=== PATIENT | female | born 1945 | race Caucasian/White ===

== ENCOUNTER → 2017-10-14 09:12 | Outpatient (CLI) | payer MEDICARE, OTHER, SELFPAY ==
--- NOTE | 2017-10-14 09:17 | XR_ITS ---
XR chest 2V HISTORY: ITS.REASON: HTN ORDERING PHYSICIAN: Haroldo Key MD PATIENT AGE: 72 years COMPARISON: None FINDINGS: Cardiac size is upper limits of normal. Lungs are clear of acute infiltrate. No evidence of CHF. Moderate degenerative changes are present in the thoracic spine. There has been prior left shoulder replacement. IMPRESSION: Borderline cardiomegaly, no acute finding
== END ==
PROVIDERS: PCP Family Medicine; Visit Provider Family Medicine
DX: Z01.818 Encounter for other preprocedural examination (principal)
CPT/HCPCS: 71046; 93005

== ENCOUNTER → 2017-12-07 12:50 | Outpatient (CLI) | payer MEDICARE, OTHER, SELFPAY ==
--- NOTE | 2017-12-07 | AS_ITS ---
Arterial Exam Indications: Claudication 443.9. PVD 433.9. IMPRESSIONS 1. Study suggests greater than 60% stenosis involving the right common femoral artery and the right deep femoral artery 2. Trickle flow seen from distal popliteal down to the distal CATERING ATTENDANT and PeroA in the right lower extremity. Very diminished flow and pulses seen in RLE. 3. Study suggests greater than 60% stenosis involving the left common femoral artery and the left femoral artery. Consider CT angiogram for conformation. History: Bilateral lower extremity pain. Claudication. Risk factors: Current tobacco use. Diabetes mellitus. Coronary artery disease. Patient has history of endarterectomy. Recent total knee on LLE 10/31/17. Patient presents today with black fifth toe on right foot. After completion of scanning with patient supine, the fifth, fourth, third, and second digits on the right foot were black in color and cold to touch. Bilateral lower extremity arterial duplex. Duplex scan and ankle-brachial indices. Height: Height: 152.4cm. Height: 60in. Weight: Weight: 78kg. Weight: 171.6lb. Body mass index: BMI: 33.6kg/m^2. Body surface area: BSA: 1.85m^2. Location: Vascular laboratory. Patient status: Outpatient. Tables: Arterial flow: + +--------+--------+ + Location V sys V ed Flow analysis + +--------+--------+ + Right common femoral 168cm/s -------- Biphasic + +--------+--------+ + Right deep femoral - proximal 176cm/s -------- Triphasic + +--------+--------+ + Right femoral - proximal 80.5cm/s -------- Biphasic + +--------+--------+ + Right femoral - mid 66.3cm/s -------- Monophasic + +--------+--------+ + Right femoral - distal 51.6cm/s -------- Monophasic + +--------+--------+ + Right popliteal - proximal 13.2cm/s 6cm/s Monophasic + +--------+--------+ + Right popliteal - distal 43.4cm/s 12.9cm/s Monophasic + +--------+--------+ + Right posterior tibial - mid 14.8cm/s 7.5cm/s Monophasic + +--------+--------+ + Right posterior tibial - distal 16.7cm/s 5.7cm/s Monophasic + +--------+--------+ + Right peroneal - distal 17.7cm/s 8.1cm/s Monophasic + +--------+--------+ + Left common femoral 184cm/s 26.4cm/s Monophasic + +--------+--------+ + Left deep femoral - proximal 208cm/s 25.3cm/s Monophasic + +--------+--------+ + Left femoral - proximal 189cm/s 33.9cm/s Monophasic + +--------+--------+ + Left femoral - mid 154cm/s 28.1cm/s Monophasic + +--------+--------+ + Left femoral - distal 330cm/s 61.1cm/s Monophasic + +--------+--------+ + Left popliteal - proximal 116cm/s 15.7cm/s Monophasic + +--------+--------
--- NOTE | 2017-12-07 12:56 | US_ITS ---
US Arterial Ankle Brachial Ind History: Claudication, coldness and lower extremities, current smoker with skin color changes, peripheral arterial disease ORDERING PHYSICIAN: Haroldo Key MD PATIENT AGE: 72 years TECHNIQUE: Segmental pressures obtained of both right and left leg. These are compared to brachial blood pressure to yield index at each level sampled including summary KARUNA. The data sheets from the procedure are available in PACS FINDINGS Rest study only performed today No prior studies available for comparison. Blood pressures reported are in millimeters mercury. There were diminished waveforms on the right. The pulses weren't able to be located by Doppler in the right leg therefore ABIs on the right were not formed. Diminished pulses are present in the left leg. LEFT LEG KARUNA = .7 LEFT LEG TBI= .4 Brachial BPD: 100 Thigh BP: 112 Calf BP: 93 Ankle PT:94 Ankle DP: 89 Digit = 57 IMPRESSION: 1. Unable to locate pulses on the right. 2. Low left KARUNA of 0.7 with diminished pulses indicating moderate arterial disease. The TBI is also depressed on the left indicating small vessel disease
== END ==
PROVIDERS: PCP Family Medicine; Visit Provider Family Medicine
DX: R09.89 Other specified symptoms and signs involving the circulatory and respiratory systems; I70.213 Atherosclerosis of native arteries of extremities with intermittent claudication, bilateral legs
CPT/HCPCS: 93922; 93925

== ENCOUNTER → 2017-12-15 10:08 | Outpatient (CLI) | payer MEDICARE, OTHER, SELFPAY ==
--- NOTE | 2017-12-15 10:13 | XR_ITS ---
XR foot wt bearing RT 3V HISTORY: Redness and pain, infection ITS.REASON: infection ORDERING PHYSICIAN: Brooklyn Nuñez DPM PATIENT AGE: 72 years COMPARISON: None FINDINGS: Hypertrophic changes are present at the first metatarsophalangeal joint with minimal hallux valgus and mild soft tissue swelling at the medial aspect of the distal first metatarsal. No bony destructive process. There are osteoarthritic changes of the navicular cuneiform and second and third metatarsal parcel junction. IMPRESSION: Osteoarthritic change. Bunion formation at the first metatarsal head No bony destructive process evident
[2017-12-15 11:11] LABS: Basophils % 0.2 % (0.1-2.0); Eosinophils # 0.5 K/mm3 (0.0-0.4); Eosinophils % 4.9 % (0.1-12.0); Hematocrit 32.5 % (37.0-47.0); Hemoglobin 10.3 g/dL (12.2-16.2); Lymphocytes # 1.8 K/mm3 (0.7-4.5); Lymphocytes % 18.9 K/mm3 (10-50); Mean Corpuscular HGB Conc 31.7 g/dL (31.8-35.4); Mean Corpuscular Hemoglobin 28.5 pg (27.0-31.2); Mean Platelet Volume 7.5 fl (7.4-10.4); Monocytes # 0.3 K/mm3 (0.1-1.0); Monocytes % 3.2 % (1.7-9.3); Neutrophils # 6.8 K/mm3 (1.8-7.8); Neutrophils % 72.7 % (37.0-80.0); Platelet Count 246 K/mm3 (142-424); Red Blood Count 3.62 M/mm3 (4.20-5.40); Red Cell Distribution Width 14.7 % (11.5-17.5); White Blood Count 9.4 K/mm3 (4.8-10.8)
[2017-12-15 11:35] LABS: Alanine Aminotransferase 16 U/L (12-78); Albumin Level 3.6 gm/dL (3.4-5.0); Albumin/Globulin Ratio 0.9 (1.1-1.8); Alkaline Phosphatase 148 U/L (46-116); Aspartate Amino Transferase 10 U/L (15-37); Bilirubin,Total 0.3 mg/dL (0.2-1.0); Blood Urea Nitrogen 15 mg/dL (7-18); C-Reactive Protein 1.6 mg/L (0.0-0.9); Calcium 9.8 mg/dL (8.5-10.1); Carbon Dioxide 27 mmol/L (21.0-32.0); Chloride 105 mmol/L (98-107); Creatinine,Serum 1.86 mg/dL (0.55-1.02); Estimated Glomerular Filt Rate 27 ml/min (>60); GFR (African American) 32 ML/MIN (>60); Globulin 3.9 gm/dl (1.3-3.2); Glucose 163 mg/dL (74-106); Sodium 140 mmol/L (136-145); Total Protein,Serum 7.5 gm/dL (6.4-8.2)
[2017-12-15 11:55] LABS: Erythrocyte Sedimentation Rate 82 mm/hr (0-30)
== END ==
PROVIDERS: PCP Family Medicine; Visit Provider Podiatrist
DX: M79.673 Pain in unspecified foot (principal)
CPT/HCPCS: 36415; 73630; 80053; 85025; 85651; 86140

== ENCOUNTER → 2017-12-28 07:14 | Outpatient (CLI) | payer MEDICARE, OTHER, SELFPAY ==
--- NOTE | 2017-12-28 07:15 | NM_ITS ---
NM bella perf SPECT rest str History and Indications: Hypertension, diabetes, hyperlipidemia, tobacco use, family history and shortness of breath Procedure: Patient received a 0.4 mg of Lexiscan, resting heart rate was 77 bpm resting blood pressure of 159/75, with Lexiscan maximum heart rate achieved was 84 bpm which is less than 85% of the maximum predicted heart rate and a blood pressure was 131/58. With Lexiscan patient complained of shortness of breath. Electrocardiogram: Resting electrocardiogram shows sinus rhythm, with Lexiscan less than 1.[address] segment depression noted from the baseline EKG. The EKG portion of the Lexiscan Myoview is nondiagnostic. Cardiac stress and resting SPECT images: Cardiac stress and rest SPECT images were obtained using technetium 99 Myoview 31.0 mCi at stress and 10.5 mCi at stress. Gated SPECT further analysis of segmental wall motion and calculation of the ejection fraction also been. Cardiac stress and rest SPECT images show uniform myocardial activity without any segmental perfusion abnormality, computer derived ejection fraction is over 65% with no regional wall motion abnormality, right ventricle is normal size and contractility. Conclusion: 1. The EKG portion of the Lexiscan Myoview is nondiagnostic. 2. No Scintigraphic evidence of reversible ischemia seen, computer derived ejection fraction over 65% with no regional wall motion abnormality, right ventricle is normal size and contractility. 3. Normal Lexiscan Myoview study.
--- NOTE | 2017-12-28 07:15 | CI_ITS ---
Cerebrovascular Exam Indications: 433.10 Occlusion/stenosis of carotid artery without cerebral infarction. IMPRESSIONS 1. The bilateral vertebral arteries are patent with normal antegrade flow. 2. Study suggests 50-69% stenosis involving the right internal carotid artery. 3. Study suggests 70-99% stenosis involving the left internal carotid artery. No change from the study of 27-Dec-2016. History: A bruit of the left carotid artery. A bruit of the right carotid artery. Labs, prior tests, procedures, and surgery: Left endarterectomy. Labs, prior tests, procedures, and surgery: Left endarterectomy. Carotid duplex study. Complete study and Doppler flow study including spectral analysis, color and canseco scale imaging. Location: Vascular laboratory. Patient status: Outpatient. Tables: Arterial flow: + +--------+--------+ Location V sys V ed + +--------+--------+ Right CCA - proximal 102cm/s 22cm/s + +--------+--------+ Right CCA - distal 130cm/s 26.7cm/s + +--------+--------+ Right ECA 249cm/s -------- + +--------+--------+ Right ICA - proximal 175cm/s 51.6cm/s + +--------+--------+ Right ICA - mid 198cm/s 55cm/s + +--------+--------+ Right ICA - distal 131cm/s 33.7cm/s + +--------+--------+ Right vertebral 101cm/s -------- + +--------+--------+ Left CCA - proximal 46.9cm/s 12.1cm/s + +--------+--------+ Left CCA - distal 58.5cm/s 18.7cm/s + +--------+--------+ Left ECA 109cm/s -------- + +--------+--------+ Left ICA - proximal 68.8cm/s 24.6cm/s + +--------+--------+ Left ICA - mid 331cm/s 119cm/s + +--------+--------+ Left ICA - distal 135cm/s 50.6cm/s + +--------+--------+ Left vertebral 22cm/s -------- + +--------+--------+ Velocity ratios: + + + + + + Right, V sys Right, V ed Left, V sys Left, V ed + + + + + + Max ICA/dist CCA 1.52 2.06 5.66 6.36 + + + + + + (Report amended ) Electronically signed by: Nikita Garcia [id number]
--- NOTE | 2017-12-28 08:36 | HMH.ITSHM ---
ASA AMLODIPINE ATORVASTATIN CALCIUM CHLOECALCIFEROL CYANOCOBALAMIN PLAVIX CLOACE GABAPENTIN GLIPIZIDE LISINOPRIL SERTRALINE TRAMADOL
--- NOTE | 2017-12-28 10:50 | HMH.ITSHM ---
aspirin amlodipine atorvastatin calcium cholecalciferol cyanocobalamin plavix colace gabapentin glipizide lisinopril sertraline tramadol
== END ==
PROVIDERS: PCP Family Medicine; Visit Provider Internal Medicine
DX: I25.10 Atherosclerotic heart disease of native coronary artery without angina pectoris (principal); R09.89 Other specified symptoms and signs involving the circulatory and respiratory systems; I77.9 Disorder of arteries and arterioles, unspecified; Z98.890 Other specified postprocedural states
CPT/HCPCS: 78452; 93017; 93880; A9502; J2785

== ENCOUNTER → 2018-06-20 10:26 | Outpatient (CLI) | payer MEDICARE, OTHER, SELFPAY ==
--- NOTE | 2018-06-20 10:36 | XR_ITS ---
XR chest 2V HISTORY: Smoker, hypertension, shortness of breath ITS.REASON: COPD ORDERING PHYSICIAN: Haroldo Key MD PATIENT AGE: 72 years COMPARISON: 10/14/2017 FINDINGS: There is mild cardiomegaly without failure. Lungs are clear of acute infiltrate. There is mild biapical pleural thickening. There are degenerative changes in the thoracic spine with mild chronic wedging of T8. Left shoulder prosthesis noted IMPRESSION: Mild cardiomegaly. No change with no acute finding
== END ==
PROVIDERS: PCP Family Medicine; Visit Provider Family Medicine
DX: J44.9 Chronic obstructive pulmonary disease, unspecified (principal)
CPT/HCPCS: 71046

== ENCOUNTER → 2018-06-26 12:45 | Outpatient (CLI) | payer MEDICARE, OTHER, SELFPAY ==
--- NOTE | 2018-06-26 12:48 | CA_ITS ---
PROCEDURE: 2-D M-mode and color Doppler study INDICATIONS FOR THE TEST: Chest pain COPD Heart Murmur Tobacco Smoking+ Palpitations Fatigue Syncope Edema Hypertension+Diabetes Mellitus+ Rheumatic Fever SOB COREY Obesity Hyperlipidemia Family History HD Additional History CAD,TOBIAS,PAD,HX TIA,CARDIAC CLEARANCE PATIENT INFORMATION HEIGHT: 60 WEIGHT:169 GENDER: Female B/P:155/62 2-D/M-MODE INTERPRETATION: 2-D MEASUREMENTS OBSERVED VALUES IN CMS Right Ventricular Dimension (RVDd) 1.2 Interventricular Septum (Thickness)(IVsd) 0.9 Left Ventricular Internal Dimensions(LVIDd) 4.6 Left Ventricular Posterior Wall (Thickness)(LVPWd) 0.8 Aortic Root 2.8 Aortic Cusp Separation 2.0 Left Atrial Dimensions (LAD) 3.8 2D 1. Left atrium is mildly enlarged, left ventricle is normal size, mild concentric left ventricular hypertrophy, visually estimated ejection fraction 55% with no regional wall motion abnormality. 2. The right atrium and right ventricle are mildly enlarged with normal contractility. 3. The aortic valve is thickened and calcified leaflet continue to display mobility. 4. The mitral valve has mitral calcification, leaflets are minimally thickened. 5. The tricuspid valve is grossly normal. 6. The pulmonic valve is poorly visualized. 7. No significant pericardial effusion noted. DOPPLER INTERROGATION: Doppler interrogation of the aortic, mitral and tricuspid valvular presence of mild mitral and tricuspid regurgitation, tricuspid regurgitation jet velocity is inadequate for calculation of the right ventricular systolic pressure, grade 1 diastolic dysfunction seen with tissue Doppler evidence of raised left atrial pressure. CONCLUSION: 1. Mild biatrial enlargement, normal left ventricular size, mild concentric left ventricular hypertrophy, visually estimated ejection fraction 55% with no regional wall motion abnormality, grade 1 diastolic dysfunction seen with tissue Doppler evidence of raised left atrial pressure. 2. Mildly enlarged right ventricle with normal contractility. 3. Mild mitral and tricuspid regurgitation 4. No significant pericardial effusion noted.
== END ==
PROVIDERS: PCP Family Medicine; Visit Provider Internal Medicine
DX: Z01.810 Encounter for preprocedural cardiovascular examination; I25.10 Atherosclerotic heart disease of native coronary artery without angina pectoris; E11.9 Type 2 diabetes mellitus without complications; E78.5 Hyperlipidemia, unspecified; F17.200 Nicotine dependence, unspecified, uncomplicated; G45.9 Transient cerebral ischemic attack, unspecified; I73.9 Peripheral vascular disease, unspecified; I77.9 Disorder of arteries and arterioles, unspecified; N18.9 Chronic kidney disease, unspecified; R09.89 Other specified symptoms and signs involving the circulatory and respiratory systems; Z79.84 Long term (current) use of oral hypoglycemic drugs
CPT/HCPCS: 93306

== ENCOUNTER → 2018-07-06 15:09 | Outpatient (POV) | payer MEDICARE, OTHER, SELFPAY | PROVIDERS: Visit Provider Internal Medicine Nephrology | DX: Z00.00 Encounter for general adult medical examination without abnormal findings (principal) ==

== ENCOUNTER → 2018-07-26 15:48 | Outpatient (CLI) | payer MEDICARE, OTHER, SELFPAY ==
[2018-07-26 15:53] LABS: Microscopic, Urine URINE MICROSCOPIC (MICROSCOPIC)
[2018-07-26 16:20] LABS: Basophils % 0.3 % (0.1-2.0); Eosinophils # 0.4 K/mm3 (0.0-0.4); Eosinophils % 4.7 % (0.1-12.0); Hematocrit 29.9 % (37.0-47.0); Hemoglobin 9.7 g/dL (12.2-16.2); Lymphocytes # 1.8 K/mm3 (0.7-4.5); Mean Corpuscular HGB Conc 32.4 g/dL (31.8-35.4); Mean Corpuscular Hemoglobin 29.5 pg (27.0-31.2); Mean Platelet Volume 7.2 fl (7.4-10.4); Monocytes # 0.3 K/mm3 (0.1-1.0); Monocytes % 2.7 % (1.7-9.3); Neutrophils # 6.7 K/mm3 (1.8-7.8); Neutrophils % 73.3 % (37.0-80.0); Platelet Count 345 K/mm3 (142-424); Red Blood Count 3.29 M/mm3 (4.20-5.40); Red Cell Distribution Width 14.1 % (11.5-17.5); White Blood Count 9.2 K/mm3 (4.8-10.8)
[2018-07-26 16:21] LABS: Appearance,Urine CLEAR (Clear); Bilirubin,Urine Negative (Negative); Blood, Urine Negative (Negative); Color,Urine YELLOW (Yellow); Glucose,Urine (UA) TRACE (Negative); Ketones,Urine Negative (Negative); Leukocyte Esterase,Urine TRACE (Negative); Nitrate,Urine Negative (Negative); Protein,Urine Negative (Negative); Specific Gravity, Urine <= 1.005 (1.005-1.030); Urobilinogen,Urine 0.2 EU/dl (0.2)
[2018-07-26 16:31] LABS: Creatinine,Urine Random 57 mg/dL (20-320); Total Protein,Urine Random 30.4 mg/dL (0.0-11.9)
[2018-07-26 16:36] LABS: Bacteria,Urine Trace /lpf
[2018-07-26 17:17] LABS: Albumin Level 3.8 gm/dL (3.4-5.0); Anion Gap 17.6 mEq/L (5-15); Blood Urea Nitrogen 21 mg/dL (7-18); Calcium 9.7 mg/dL (8.5-10.1); Carbon Dioxide 24 mmol/L (21.0-32.0); Chloride 103 mmol/L (98-107); Creatinine,Serum 2.23 mg/dL (0.55-1.02); Estimated Glomerular Filt Rate 22 ml/min (>60); GFR (African American) 26 ML/MIN (>60); Glucose 109 mg/dL (74-106); Phosphorous 4.1 mg/dL (2.4-4.9); Potassium 4.6 mmoL/L (3.5-5.1); Sodium 140 mmol/L (136-145)
[2018-07-28 07:24] LABS: Vitamin D 25 Hydroxy 48.1 ng/mL (30.0-100.0)
[2018-07-28 19:57] LABS: Parathyroid Hormone Intact 75 pg/mL (15-65)
[2018-07-28 19:58] LABS: Calcium, Ionized 5.7 mg/dL (4.5-5.6)
== END ==
PROVIDERS: Visit Provider Internal Medicine Nephrology
DX: N18.3 Chronic kidney disease, stage 3 (moderate) (principal)
CPT/HCPCS: 36415; 80069; 81001; 82330; 82570; 82652; 83970; 84155; 85025

== ENCOUNTER → 2018-08-03 14:08 | Outpatient (POV) | payer MEDICARE, OTHER, SELFPAY | PROVIDERS: Visit Provider Internal Medicine Nephrology | DX: Z00.00 Encounter for general adult medical examination without abnormal findings (principal) ==

== ENCOUNTER → 2018-10-30 10:02 | Outpatient (CLI) | payer MEDICARE, OTHER, SELFPAY ==
[2018-10-30 10:04] LABS: Microscopic, Urine URINE MICROSCOPIC (MICROSCOPIC)
[2018-10-30 10:20] LABS: Appearance,Urine CLEAR (Clear); Bilirubin,Urine Negative (Negative); Blood, Urine Negative (Negative); Color,Urine YELLOW (Yellow); Glucose,Urine (UA) Negative (Negative); Ketones,Urine Negative (Negative); Leukocyte Esterase,Urine Negative (Negative); Nitrate,Urine Negative (Negative); Protein,Urine Negative (Negative); Urobilinogen,Urine 0.2 EU/dl (0.2)
[2018-10-30 10:41] LABS: Basophils # 0.1 K/mm3 (0-0.2); Basophils % 0.5 % (0.1-2.0); Eosinophils # 0.7 K/mm3 (0.0-0.4); Hematocrit 32.8 % (37.0-47.0); Hemoglobin 10.2 g/dL (12.2-16.2); Lymphocytes # 2.5 K/mm3 (0.7-4.5); Lymphocytes % 24.6 % (10-50); Mean Corpuscular Hemoglobin 28.3 pg (27.0-31.2); Mean Corpuscular Volume 91.3 fl (81-99); Mean Platelet Volume 8.2 fl (7.4-10.4); Monocytes # 0.4 K/mm3 (0.1-1.0); Monocytes % 3.7 % (1.7-9.3); Neutrophils # 6.7 K/mm3 (1.8-7.8); Neutrophils % 64.3 % (37.0-80.0); Platelet Count 249 K/mm3 (142-424); White Blood Count 10.4 K/mm3 (4.8-10.8)
[2018-10-30 10:43] LABS: Bacteria,Urine Trace /lpf; WBC,Urine Occasional #/hpf (0-3)
[2018-10-30 11:42] LABS: Creatinine,Urine Random 69 mg/dL (20-320); Total Protein,Urine Random 24.5 mg/dL (0.0-11.9)
[2018-10-30 11:59] LABS: Albumin Level 3.8 gm/dL (3.4-5.0); Blood Urea Nitrogen 37 mg/dL (7-18); Calcium 8.8 mg/dL (8.5-10.1); Carbon Dioxide 23 mmol/L (21.0-32.0); Chloride 105 mmol/L (98-107); Creatinine,Serum 2.65 mg/dL (0.55-1.02); Estimated Glomerular Filt Rate 18 ml/min (>60); GFR (African American) 21 ML/MIN (>60); Glucose 95 mg/dL (74-106); Phosphorous 4.7 mg/dL (2.4-4.9); Sodium 140 mmol/L (136-145)
== END ==
PROVIDERS: Visit Provider Internal Medicine Nephrology
DX: N18.4 Chronic kidney disease, stage 4 (severe) (principal)
CPT/HCPCS: 36415; 80069; 81001; 82570; 84155; 85025

== ENCOUNTER → 2018-11-06 13:31 | Outpatient (POV) | payer MEDICARE, OTHER, SELFPAY | PROVIDERS: PCP Internal Medicine Nephrology; Visit Provider Internal Medicine Nephrology | DX: Z00.00 Encounter for general adult medical examination without abnormal findings (principal) ==

== ENCOUNTER 2020-11-14 20:07 | Emergency (ER) | payer MEDICARE, OTHER, SELFPAY ==
[2020-11-14 20:09] VITALS: BP 125/88; PULSE 103; RESP 18; TEMP 36.8; O2SAT 97; BMI 33.2
--- NOTE | 2020-11-14 20:28 | XR_ITS ---
PROCEDURE INFORMATION: Exam: XR Right Humerus Exam date and time: 11/14/2020 8:28 PM Age: 75 years old Clinical indication: Injury or trauma; Blunt trauma (contusions or hematomas); Arm, upper; Patient HX: Fall, right elbow pain up into mid humerus, swelling, bruising TECHNIQUE: Imaging protocol: XR Right humerus. Views: 2 or more views. COMPARISON: DX CXR2V XR chest 2V 06/20/2018 10:41 AM FINDINGS: Bones/joints: Normal. Soft tissues: Normal. IMPRESSION: No acute findings.
--- NOTE | 2020-11-14 20:28 | XR_ITS ---
PROCEDURE INFORMATION: Exam: XR Right Elbow Exam date and time: 11/14/2020 8:28 PM Age: 75 years old Clinical indication: Injury or trauma; Blunt trauma (contusions or hematomas); Patient HX: Fall, right elbow pain up into mid humerus, swelling, bruising TECHNIQUE: Imaging protocol: XR Right elbow. Views: 3 or more views. COMPARISON: CR XR HUMERUS RT 11/14/2020 8:34 PM FINDINGS: Bones/joints: There is a displaced fracture of the lateral epicondyle of the distal humerus. The proximal radius and proximal ulna are intact. Soft tissues: Soft tissue swelling involving the medial elbow. IMPRESSION: Displaced lateral epicondyle fracture of the distal humerus.
--- NOTE | 2020-11-14 20:54 | HMH.EDUPEXT ---
ED Disposition Clinical Impression: Elbow fracture, right Qualifiers: Encounter type: initial encounter Fracture type: closed Qualified Code(s): S42.401A - Unspecified fracture of lower end of right humerus, initial encounter for closed fracture Disposition: Home, Self-Care Condition on Discharge: Good Instructions: DI for Elbow Fracture Additional Instructions: call pcp and ortho for follow up Referrals: Haroldo Key MD [Primary Care Provider] - Dutch Garsia MD [Staff Physician] - - Critical Care Critical Care Time: No Attestation: On 11/14/20, the high probability of a clinically significant, sudden or life threatening deterioration of the following system(s) required my full and direct attention, intervention and personal management. The time I documented below is in addition to time spent performing reported procedures but includes the following listed in this critical care notation. Medical Decision Making - Medical Records Medical records reviewed: Yes: I reviewed the patient's medical records. - Dank Inquiry Pt receiving controlled substance: No Vital Signs: 11/14/20 20:09 Temperature 98.3 F Temperature Source Oral Pulse Rate [Left Radial] 103 H Respiratory Rate 18 Blood Pressure [Left Arm] 125/88 Blood Pressure Mean [Left Arm] 100 Blood Pressure Source [Left Arm] Automatic Cuff Blood Pressure Position [Left Arm] Sitting 02 Sat by Pulse Oximetry 97 Oxygen Delivery Method Room Air - Lab Data Lab results reviewed: Yes: I reviewed the patient's lab results. Orders (Tests/Meds): ED MEDICATIONS Discontinued Medications Generic Name Dose Route Start Last Admin Trade Name Freq PRN Reason Stop Dose Admin Acetaminophen 650 mg 11/14/20 20:29 11/14/20 20:51 Acetaminophen 325mg Tab PO 11/14/20 20:30 650 mg ONCE ONE Administration Acetaminophen/Codeine Phosphate 1 emily 11/14/20 21:18 Acetaminophen 300mg W/Codeine 30mg Take Home Pack (6) PO 11/14/20 21:19 ONCE ONE Ibuprofen 600 mg 11/14/20 20:29 11/14/20 20:51 Ibuprofen 600 Mg Tablet PO 11/14/20 20:30 600 mg ONCE ONE Administration - Radiology Data #1 Image(s): Humerus, Elbow Image Reviewed: Yes I reviewed the patient's radiology image Preliminary Findings: Abnormal (fx elbow ) - Physician Consults Physician Consulted: christiano Reason -: Pt condition Medical Decision Narrative: will place in splint and sling and refer to ortho Upper Extremity HPI - General Chief Complaint: Extremity Injury, Upper Stated Complaint: AO 1200 fall injured R arm Time Seen by Provider: 11/14/20 20:54 Mode of Arrival: Ambulatory Source of Information: Patient, Medical Record Limitations: No Limitations Description of Symptoms (Recalled from ER Triage Doc. by RN): Pt reports tripping around noon while at her husbands doctors appointment and injurying her right elbow. She denies hitting her head. Denies LOC. Denies being lightheaded or dizzy when she fell. Denies weakness. Denies any other pain. Denies pain distal to injury. No obvious deformity. Distal pulse strong in RUE. There is swelling to right elbow. Pt ambulatory into ED and drove herself here. - History of Present Illness HPI narrative: trip and fall with acute injury rt elbow with pain and swelling with dec rom complaint: injury to: right, elbow Onset (ago): hour(s) Other Extremity Injury: Right: elbow Other injuries: none Handedness: right Place: outdoors Severity: moderate Context: fall Associated symptoms: denies other symptoms - Related Data Home Medications Medication Instructions Recorded Confirmed amlodipine 10 mg tablet 10 mg PO QDAY 05/23/17 12/19/18 atorvastatin 40 mg tablet 40 mg PO QDAY 05/23/17 12/19/18 cholecalciferol (vitamin D3) 125 5,000 unit PO ONCE 05/23/17 12/19/18 mcg (5,000 unit) capsule vitamin B complex 1 tab PO QDAY 05/23/17 12/19/18 tramadol 50 mg tablet 50 mg PO Q6H 12/16/17 12/19/18 multivitamin-C
--- NOTE | 2020-11-14 21:18 | PC.NURSE ---
Pt declined having Orthoglass splint and requested only a sling. aware.
[2020-11-14 21:49] VITALS: BP 131/85; PULSE 98; RESP 16; TEMP 36.6; O2SAT 97
== END 2020-11-14 21:54 | disposition home or self-care (01) ==
PROVIDERS: Emergency Provider Emergency Medicine; PCP Family Medicine
DX: S42.401A Unspecified fracture of lower end of right humerus, initial encounter for closed fracture (principal); W01.0XXA Fall on same level from slipping, tripping and stumbling without subsequent striking against object, initial encounter; Y92.89 Other specified places as the place of occurrence of the external cause; I25.10 Atherosclerotic heart disease of native coronary artery without angina pectoris; E78.5 Hyperlipidemia, unspecified; I10 Essential (primary) hypertension; E03.9 Hypothyroidism, unspecified; K21.9 Gastro-esophageal reflux disease without esophagitis; M81.0 Age-related osteoporosis without current pathological fracture; F17.210 Nicotine dependence, cigarettes, uncomplicated; Z91.040 Latex allergy status; Z88.0 Allergy status to penicillin; Z88.2 Allergy status to sulfonamides; Z88.7 Allergy status to serum and vaccine
CPT/HCPCS: 29105; 73060; 73080; 99284

== ENCOUNTER → 2020-11-18 09:53 | Outpatient (CLI) | payer MEDICARE, OTHER, SELFPAY ==
--- NOTE | 2020-11-18 10:03 | CT_ITS ---
PROCEDURE: CT ELBOW RT WO CON CLINICAL HISTORY: RT elbow fx COMPARISON: CR XR ELBOW RT MIN 3V from 11/14/2020 TECHNIQUE: Axial images obtained with sagittal and coronal reformats. All CT scans at the facility use one or more dose reduction, viz: automated exposure control, ma/kV adjustment per patient size (including targeted exams where dose is matched to indication, i.e. head), or iterative reconstruction technique. FINDINGS: Displaced comminuted fracture is noted involving the lateral epicondyle, and capitellum, demonstrates intra-articular extension. There is evidence of extension of the fracture into the trochlea. Subtle linear lucency is noted through the medial epicondyle. The olecranon, proximal ulna and proximal radius appear unremarkable without evidence of fractures. There is moderate joint effusion. Subcutaneous soft tissue swelling is noted in the adjacent soft tissues. IMPRESSION: Displaced comminuted fracture noted involving the lateral epicondyle, capitellum and extending into the trochlea. Subtle linear lucency is noted in the medial epicondyle, raises the concern for an undisplaced fracture. Dictated by: Salud Garsia 11/18/2020 10:57 Salud Garsia in [facility] 11/18/2020 10:57
== END ==
PROVIDERS: PCP Family Medicine; Visit Provider Orthopaedic Surgery
DX: S42.401A Unspecified fracture of lower end of right humerus, initial encounter for closed fracture (principal)
CPT/HCPCS: 73200

== ENCOUNTER → 2020-11-27 08:12 | Outpatient (CLI) | payer MEDICARE, OTHER, SELFPAY ==
--- NOTE | 2020-11-27 08:17 | XR_ITS ---
PROCEDURE: XR ELBOW RT MIN 3V CLINICAL INDICATION: right elbow fx/ in splint COMPARISON: CR XR ELBOW RT MIN 3V from 11/14/[address] ELBOW RT WO CON from 11/18/2020 FINDINGS: Studies obtained with the elbow in flexion once again showing the fracture of the lateral epicondyle extending into the trochlea and capitellum. There is anterior displacement of the distal fracture fragment by approximately 8 mm. Posterior splint has been placed. IMPRESSION: Status post splint placement with otherwise no change in the displaced lateral epicondylar fracture. Dictated by: Nikita Garcia MD 11/27/2020 10:57 Nikita Garcia MD in [facility] 11/27/2020 10:57
== END ==
PROVIDERS: PCP Family Medicine; Visit Provider Orthopaedic Surgery
DX: S42.401A Unspecified fracture of lower end of right humerus, initial encounter for closed fracture (principal)
CPT/HCPCS: 73080

== ENCOUNTER → 2020-12-09 10:17 | Outpatient (CLI) | payer MEDICARE, OTHER, SELFPAY ==
--- NOTE | 2020-12-09 10:22 | XR_ITS ---
PROCEDURE: XR ELBOW RT MIN 3V CLINICAL INDICATION: RT elbow fracture Fracture follow-up COMPARISON: CR XR ELBOW RT MIN 3V from 11/14/[address] ELBOW RT WO CON from 11/18/2020 CR XR ELBOW RT MIN 3V from 11/27/2020 FINDINGS: The distal humerus fracture involving the capitellum is once again noted. There is minimal anterior displacement of the distal fracture fragment which appears to have improved since the previous exam. Fracture line extends to the surface of the capitellum. Calcification noted at the lateral epicondylar region and may be related to avulsion injury or old ligamentous injury. Other findings:None. IMPRESSION: Distal humeral fracture once again noted with decreased anterior displacement of the distal fracture fragment Dictated by: Nikita Garcia MD 12/09/2020 11:04 Nikita Garcia MD in [facility] 12/09/2020 11:04
== END ==
PROVIDERS: PCP Family Medicine; Visit Provider Orthopaedic Surgery
DX: S42.401A Unspecified fracture of lower end of right humerus, initial encounter for closed fracture (principal)
CPT/HCPCS: 73080

== ENCOUNTER → 2020-12-30 13:01 | Outpatient (CLI) | payer MEDICARE, OTHER, SELFPAY ==
--- NOTE | 2020-12-30 13:04 | XR_ITS ---
PROCEDURE: XR ELBOW RT MIN 3V CLINICAL INDICATION: right elbow fracture COMPARISON: CR XR ELBOW RT MIN 3V from 11/14/[address] ELBOW RT WO CON from 11/18/2020 CR XR ELBOW RT MIN 3V from 11/27/2020 CR XR ELBOW RT MIN 3V from 12/09/2020 FINDINGS: Mildly displaced distal humeral fracture extending in the capitellum is once again noted. The anterior fracture fragment is displaced anteriorly by 7 mm similar to the previous exam. Cortical irregularity is present at the articular surface of the capitellum on the frontal view IMPRESSION: Overall no change in the displaced capitellum fracture Dictated by: Nikita Garcia MD 12/30/2020 14:44 Nikita Garcia MD in [facility] 12/30/2020 14:44
== END ==
PROVIDERS: PCP Family Medicine; Visit Provider Orthopaedic Surgery
DX: S42.401A Unspecified fracture of lower end of right humerus, initial encounter for closed fracture (principal)
CPT/HCPCS: 73080

== ENCOUNTER → 2021-02-11 13:14 | Outpatient (CLI) | payer MEDICARE, OTHER, SELFPAY ==
--- NOTE | 2021-02-11 13:18 | XR_ITS ---
PROCEDURE: XR ELBOW RT MIN 3V CLINICAL INDICATION: right elbow fracture, doi 3 months COMPARISON: CR XR ELBOW RT MIN 3V from 11/14/2020 CR XR ELBOW RT MIN 3V from 11/27/2020 CR XR ELBOW RT MIN 3V from 12/09/2020 CR XR ELBOW RT MIN 3V from 12/30/2020 FINDINGS: Small displacement the proximal fracture fragment. Findings are similar when compared to the previous exam. Fracture line is still visible. There is a well-circumscribed calcific density lateral to the distal humerus and may be related to a displaced fracture fragment. The joint spaces are well-preserved. No significant degenerative/arthritic changes. No erosive changes evident. Other findings:None. IMPRESSION: No change capitellar fracture with mild displacement Dictated by: Nikita Garcia MD 02/11/2021 17:27 Nikita Garcia MD in [facility] 02/11/2021 17:27
== END ==
PROVIDERS: PCP Family Medicine; Visit Provider Orthopaedic Surgery
DX: S42.401A Unspecified fracture of lower end of right humerus, initial encounter for closed fracture (principal)
CPT/HCPCS: 73080

== ENCOUNTER → 2021-04-15 14:21 | Outpatient (CLI) | payer MEDICARE, OTHER, SELFPAY | PROVIDERS: Visit Provider Family Medicine | DX: K52.1 Toxic gastroenteritis and colitis (principal) | CPT/HCPCS: 87045 ==

== ENCOUNTER → 2021-05-13 13:41 | Outpatient (CLI) | payer MEDICARE, OTHER, SELFPAY ==
--- NOTE | 2021-05-13 13:46 | XR_ITS ---
FINAL REPORT CLINICAL HISTORY: right elbow fx, doi about 6 months FINDINGS: RIGHT ELBOW Three views demonstrate chronic calcification adjacent to the lateral humeral epicondyle. There is a chronic fracture of the capitellum with deformity. The alignment appears visually stable. Mild degenerative changes are present. IMPRESSION: Chronic appearing findings as above. Reviewed, Interpreted and Dictated by Vahid Caballero III, MD Transcribed by Tiana Rabago Authenticated by Vahid Caballero III, MD on 05/13/2021 03:44:23 PM [facility]
== END ==
PROVIDERS: PCP Family Medicine; Visit Provider Orthopaedic Surgery
DX: S42.401A Unspecified fracture of lower end of right humerus, initial encounter for closed fracture (principal)
CPT/HCPCS: 73080

== ENCOUNTER → 2021-09-14 10:16 | Outpatient (CLI) | payer MEDICARE, OTHER, SELFPAY ==
[2021-09-14 10:28] LABS: Adenovirus F 40/41, stool Not Detected (NotDetected); Astrovirus Not Detected (NotDetected); Campylobacter Not Detected (NotDetected); Cryptosporidium Not Detected (NotDetected); Cyclospora Cayetanesis Not Detected (NotDetected); Entamoeba histolytica Not Detected (NotDetected); Enteroaggregative E coli Not Detected (NotDetected); Enteropathogenic E coli Not Detected (NotDetected); Enterotoxigenic E coli Not Detected (NotDetected); Giardia lamblia Not Detected (NotDetected); Norovirus Not Detected (NotDetected); Plesimonas Shigalloides, PCR Not Detected (NotDetected); Rotavirus A Not Detected (NotDetected); Salmonella, PCR Not Detected (NotDetected); Sapovirus Not Detected (NotDetected); Shiga-like toxin E coli Not Detected (NotDetected); Shigella Enterovasive E coli Not Detected (NotDetected); Vibrio Cholerae Not Detected (NotDetected); Vibrio, PCR Not Detected (NotDetected); Yersinia Entercolitica, PCR Not Detected (NotDetected)
[2021-09-14 11:38] LABS: Occult Blood,Stool Negative (Negative)
[2021-09-14 20:55] LABS: Clostridium Difficile A/B, PCR Detected (NotDetected)
== END ==
PROVIDERS: Nurse Practitioner Family; Visit Provider Internal Medicine Adolescent Medicine
DX: R19.7 Diarrhea, unspecified (principal); A04.72 Enterocolitis due to Clostridium difficile, not specified as recurrent
CPT/HCPCS: 82272; 87506; G0328

== ENCOUNTER → 2021-09-17 07:34 | Outpatient (CLI) | payer MEDICARE, OTHER, SELFPAY ==
--- NOTE | 2021-09-17 07:37 | CT_ITS ---
FINAL REPORT TECHNIQUE: Axial images through the abdomen and pelvis were performed without intravenous contrast. Oral contrast was administered. This study was performed with techniques to keep radiation doses as low as reasonably achievable, (ALARA). Individualized dose reduction techniques using automated exposure control or adjustment of mA and/or kV according to the patient's size were employed. CLINICAL HISTORY: CHRONIC DIARRHEA. poss cdiff COMPARISON: 02/04/2016 FINDINGS: ABDOMEN: The lung bases are clear. The heart size is normal. Limited images of the liver are unremarkable. A gallstone is present. The spleen is normal. No adrenal mass is identified. The aorta is normal in caliber. There is no significant free fluid or adenopathy. There is no nephrolithiasis. There is no hydronephrosis. Two low-attenuation masses are seen in the right kidney measuring up to 34 mm . There is also a 16 mm low-attenuation mass of the left kidney. These are incompletely characterized without contrast and may represent cysts. Consider renal mass protocol CT for further evaluation. PELVIS: The appendix is normal. Mild wall thickening of the descending colon which may represent colitis. There are diverticula present. Patient is status post hysterectomy. The urinary bladder is unremarkable. There is no significant free fluid or adenopathy. Postoperative changes noted of the right femur. IMPRESSION: Mild wall thickening of the descending colon which may represent colitis. Cholelithiasis. Bilateral renal masses, incompletely characterized without contrast. Consider renal mass protocol CT for further evaluation. Reviewed, Interpreted and Dictated by Vahid Caballero III, MD Transcribed by Keesha Quinones Authenticated by Vahid Caballero III, MD on 09/17/2021 08:38:36 AM [facility]
== END ==
PROVIDERS: PCP Internal Medicine Adolescent Medicine; Visit Provider Nurse Practitioner Family
DX: K52.9 Noninfective gastroenteritis and colitis, unspecified (principal)
CPT/HCPCS: 74176

== ENCOUNTER 2021-10-02 06:03 | Emergency (ER) | payer MEDICARE, OTHER, SELFPAY ==
[2021-10-02 06:04] VITALS: BP 183/81; PULSE 74; RESP 17; TEMP 36.7; O2SAT 99; BMI 31.8
--- NOTE | 2021-10-02 06:26 | HMH.EDEYEP ---
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 The time I documented below is in addition to time spent performing reported procedures but includes the following listed in this critical care notation. Medical Decision Making - Medical Records Medical records reviewed: Yes: I reviewed the patient's medical records. - Dank Inquiry Pt receiving controlled substance: No Vital Signs: 10/02/21 06:04 Temperature 98.0 F Temperature Source Oral Pulse Rate [Right] 74 Respiratory Rate 17 Blood Pressure [Right Arm] 183/81 H Blood Pressure Mean [Right Arm] 115 Blood Pressure Source [Right Arm] Automatic Cuff 02 Sat by Pulse Oximetry 99 Oxygen Delivery Method Room Air - Lab Data Lab results reviewed: Yes: I reviewed the patient's lab results. Medical Decision Narrative: nonspecific exam will need to see dr blaine arevalo am Eye Problem HPI - General Chief complaint: Eye Problems Stated complaint: Right eye pain, swelling,redness no known accident Time Seen by Provider: 10/02/21 06:27 Mode of Arrival: Family Vehicle Source of Information: Patient, Medical Record Limitations: No Limitations Description of Symptoms (Recalled from ER Triage Doc. by RN): Pt c/o R eye pain, swelling, redness, and irritation. Denies any known injury. States I woke up like this . No vision changes. She has not tried to flush eye or OTC drops/medications. She does not wear glassess or contacts. Hx of bilat cataracts that have been surgically repaired. - History of Present Illness HPI Narrative: eye discomfort which started last pm with tearing and pain with eye movement - no visual loss - no uri sx and no michel - on dificid for hung luther MD chief complaint: eye pain Onset (ago): hour(s) Onset description: awoke with symptoms Duration: intermittent Location: right eye Eye Symptoms: other (tearing ) Place: home Mechanism: none Severity: moderate If Pain, Quality: throbbing Treatments Prior to Arrival: none - Related Data Home Medications Medication Instructions Recorded Confirmed atorvastatin 40 mg tablet 40 mg PO QDAY 05/23/17 10/02/21 [id number]-Vt-dilr-minerals 1 tab PO DAILY tab 04/18/18 10/02/21 aspirin 81 mg tablet,delayed 81 mg PO DAILY 06/20/18 10/02/21 release sertraline 100 mg tablet 100 mg PO QDAY tab 06/20/18 10/02/21 glipizide 5 mg tablet 5 mg PO DAILY tab 09/19/18 10/02/21 lisinopriL [Lisinopril] 10 mg PO DAILY 11/19/20 10/02/21 Fidaxomicin [Dificid] 200 mg PO DIRECTED 10/02/21 10/02/21 Allergies Allergy/AdvReac Type Severity Reaction Status Date / Time latex [LATEX] Allergy Intermediate I-ITCHING Verified 05/13/21 14:31 Penicillins [PENICILLINS] Allergy Mild I-RASH Verified 05/13/21 14:31 Sulfa (Sulfonamide Allergy Unknown I-RASH Verified 05/13/21 14:31 Antibiotics) [SULFA (SULFONAMIDE ANTIBIOTICS)] Tetanus Vaccines and Toxoid Allergy Unknown Verified 05/13/21 14:31 [TETANUS VACCINES & TOXOID] [facility] History - Hepatitis A Screen Attestation statement:: This patient has been screened for Hepatitis A risk factors. I have reviewed the patient's past medical history: Yes Medical History: Reports:: Coronary Artery Disease, Diabetes Mellitus Type 2, Gastroesophageal Reflux Disease(GERD), Hyperlipidemia, Hypertension, Kidney Stones, Osteoporosis, Renal Disease, Urinary Tract Infection Denies:: Aneurysm, Anxiety, Atrial Fibrillation, Cance
[2021-10-02 06:53] VITALS: BP 153/68; PULSE 70; RESP 17; TEMP 36.7; O2SAT 99
== END 2021-10-02 07:02 | disposition home or self-care (01) ==
PROVIDERS: Emergency Provider Emergency Medicine; PCP Internal Medicine Adolescent Medicine
DX: H15.001 Unspecified scleritis, right eye (principal); Z79.82 Long term (current) use of aspirin; Z79.899 Other long term (current) drug therapy; Z88.0 Allergy status to penicillin; Z88.2 Allergy status to sulfonamides; Z88.7 Allergy status to serum and vaccine; Z91.040 Latex allergy status; I25.10 Atherosclerotic heart disease of native coronary artery without angina pectoris; E11.9 Type 2 diabetes mellitus without complications; K21.9 Gastro-esophageal reflux disease without esophagitis; I10 Essential (primary) hypertension; E78.5 Hyperlipidemia, unspecified; N28.9 Disorder of kidney and ureter, unspecified; M81.0 Age-related osteoporosis without current pathological fracture
CPT/HCPCS: 99282

== ENCOUNTER → 2021-10-07 12:50 | Outpatient (CLI) | payer MEDICARE, OTHER, SELFPAY ==
--- NOTE | 2021-10-07 12:55 | US_ITS ---
FINAL REPORT TECHNIQUE: Ultrasound images of the kidneys were obtained. CLINICAL HISTORY: SUYAPA KIDNEY MASSES, seen on recent CT COMPARISON: CT dated September 17, 2021 FINDINGS: US RETROPERITONEAL The right kidney measures 8.6 cm in length with mild renal cortical thinning. There is no hydronephrosis. There is a cyst in the mid pole measuring up to 3.2 cm. A 2nd cyst in the lower pole seen on the CT is not visualized on this exam. The left kidney measures 8.7 cm in length. It is normal in echogenicity. There is no hydronephrosis. There is a 1.5 cm cyst. IMPRESSION: Bilateral renal cysts as above. Reviewed, Interpreted and Dictated by Vahid Cabalelro III, MD Transcribed by Phoebe Gold Authenticated and [facility]
== END ==
PROVIDERS: PCP Internal Medicine Adolescent Medicine; Visit Provider Nurse Practitioner Family
DX: N28.89 Other specified disorders of kidney and ureter (principal)
CPT/HCPCS: 76770

== ENCOUNTER → 2022-10-19 13:28 | Outpatient (CLI) | payer MEDICARE, OTHER, SELFPAY ==
--- NOTE | 2022-10-19 13:36 | CT_ITS ---
FINAL REPORT TECHNIQUE: multiple axial CT images were performed from the foramen magnum to the vertex without enhancement. CLINICAL HISTORY: SEIZURE ACTIVITY FINDINGS: The ventricles are enlarged. There is diffuse mild atrophy. There is mild periventricular white matter change likely related to small vessel disease slightly more prominent on the left than the right. There is no evidence of hemorrhage. No masses are identified. No extra-axial fluid is seen. The sinuses are normal. IMPRESSION: Mild atrophy and chronic changes without acute process. Reviewed, Interpreted and Dictated by Emil Arroyo MD Transcribed by Emy Howe Authenticated and [facility]
== END ==
PROVIDERS: PCP Internal Medicine Adolescent Medicine; Visit Provider Nurse Practitioner Family
DX: R56.9 Unspecified convulsions (principal)
CPT/HCPCS: 70450

== ENCOUNTER → 2022-12-02 09:57 | Outpatient (CLI) | payer MEDICARE, OTHER, SELFPAY ==
--- NOTE | 2022-12-02 10:00 | CA_ITS ---
FINAL REPORT TECHNIQUE: Color Doppler, duplex Doppler and canseco scale sonography of the bilateral neck vasculature was performed. Velocities were measured in the carotid arteries. Stenosis evaluation based on velocity criteria. CLINICAL HISTORY: History of TIA, Bilateral carotid bruit,PRIOR LT ENDARDECTOMY 2019,SEIZURE ACTIVITY COMPARISON: None FINDINGS: The peak systolic velocity of the right common carotid artery is 148 cm/sec and internal carotid artery 205 cm/sec. The diastolic velocity in the internal carotid artery is 64 cm/sec. The ICA/CCA ratio is 1.4. Visually, a moderate amount of plaque is seen. These findings are consistent with between 50 to 69% stenosis. The external carotid artery is patent. The right vertebral artery is patent with antegrade flow. The peak systolic velocity of the left common carotid artery is 57 cm/sec. There is no flow identified in the left internal carotid artery. The ICA/CCA ratio cannot be calculated due to lack of flow in the internal carotid artery. Visually, a moderate amount of plaque is seen. 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 The external carotid artery is patent. The left vertebral artery is patent with antegrade flow. IMPRESSION: Complete occlusion left internal carotid artery. 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 Bilateral patent vertebral arteries. If indicated, CTA or MRA could further evaluate. Reviewed, Interpreted and Dictated by Vahid Caballero III, MD Transcribed by Emy Howe Authenticated and . [facility]
[2022-12-02 11:13] LABS: Alanine Aminotransferase 15 U/L (12-78); Albumin Level 3.9 g/dl (3.5-5.0); Albumin/Globulin Ratio 1.3 (1.1-1.8); Alkaline Phosphatase 89 U/L (38-126); Anion Gap 9.1 mEq/L (5-15); Aspartate Amino Transferase 30 U/L (14-36); Bilirubin,Total 0.4 mg/dl (0.2-1.3); Blood Urea Nitrogen 26 mg/dl (7-17); Calcium 9.4 mg/dl (8.4-10.2); Carbon Dioxide 23 mmol/L (22.0-30.0); Chloride 114 mmol/L (98-107); Estimated Glomerular Filt Rate 21 ml/min (>60); GFR (African American) 25 ML/MIN (>60); Glucose 91 mg/dl (74-100); Potassium 4.1 mmoL/L (3.5-5.1); Sodium 142 mmol/L (136-145); Total Protein,Serum 6.9 g/dl (6.3-8.2)
== END ==
PROVIDERS: PCP Family Medicine; Visit Provider Specialist
DX: I65.23 Occlusion and stenosis of bilateral carotid arteries (principal); R56.9 Unspecified convulsions
CPT/HCPCS: 36415; 80053; 93880

== ENCOUNTER → 2022-12-06 09:22 | Outpatient (CLI) | payer MEDICARE, OTHER, SELFPAY ==
--- NOTE | 2022-12-06 09:23 | MR_ITS ---
FINAL REPORT CLINICAL HISTORY: TIA/stroke like symptoms, tremors in arms and legs. COMPARISON: None FINDINGS: Multiplanar MR imaging of the brain was performed without contrast. There is mild age-appropriate atrophy. There are scattered foci of increased T2 signal in the cerebral white matter that have a nonspecific appearance but likely represent mild chronic ischemic/gliotic changes. There is no evidence of intracranial hemorrhage or mass. No abnormal ventricular dilatation is identified. No abnormal extra-axial fluid collection is seen. There is a 3 mm focus of restricted diffusion in the left posterior frontal cortex that is consistent in appearance with a subacute infarct. Several small chronic lacunar infarcts are identified as well. The posterior fossa and brainstem are unremarkable. Normal major vessel vascular flow voids are seen. IMPRESSION: Age-appropriate atrophy and mild chronic ischemic/gliotic changes. 3 mm focus of restricted diffusion in the left posterior frontal cortex that is consistent with a subacute infarct. Reviewed, Interpreted and Dictated by Vahid Caballero III, MD Transcribed by Emy Howe Authenticated and [facility]
== END ==
PROVIDERS: PCP Family Medicine; Visit Provider Specialist
DX: Z86.73 Personal history of transient ischemic attack (TIA), and cerebral infarction without residual deficits (principal); G40.89 Other seizures
CPT/HCPCS: 70551

== ENCOUNTER → 2022-12-10 10:58 | Outpatient (CLI) | payer MEDICARE, OTHER, SELFPAY | PROVIDERS: PCP Family Medicine; Visit Provider Specialist | DX: R56.9 Unspecified convulsions (principal); G45.8 Other transient cerebral ischemic attacks and related syndromes | CPT/HCPCS: 95819 ==

== ENCOUNTER 2024-04-16 14:27 | Observation (INO) | payer MEDICARE, OTHER, SELFPAY ==
[2024-04-16] VITALS (12 sets, daily range): BP systolic 99–181; BP diastolic 49–73; PULSE 60–69; RESP 16–18; TEMP 36.8–36.9; O2SAT 93–97; BMI 28.3
--- NOTE | 2024-04-16 16:16 | ED_ITS ---
Discharge Plan Disposition Patient Disposition: Admitted Clinical Impressions Clinical Impression: Acute kidney injury superimposed on chronic kidney disease, Declining functional status, Acute UTI Diarrhea Qualifiers: Diarrhea type: unspecified type Qualified Code(s): R19.7 - Diarrhea, unspecified Discharge ED Provider: Bret Bernstein General Adult HPI <LAUREN Haas - Last Filed: 04/16/24 22:00> General Chief complaint: Fall Stated complaint: ao fall weakness Time Seen by Provider: 04/16/24 16:16 History of Present Illness HPI narrative: Patient presents for evaluation initially of a fall. Patient initially tells me that she accidentally slipped out of a computer chair landing on the floor. Patient states that she was unable to get up due to previous prosthetic joint placements. She denied loss of consciousness back pain neck pain headache change in level of consciousness. She denies any fever chills hemoptysis hematochezia melena nausea vomiting diarrhea. However, after the arrival of the patient's son a different picture emerged and that the patient has become progressively weak, has been incontinent of stool for an unknown period of time. He stated that when he came to help get her up today that she was lying in her own diarrhea. Patient does have a known history reportedly of chronic kidney disease but has not followed up with any physician in over a year. Patient does retain the capacity for decision making and an interactive discussion was held with all family members at the patient's bedside where she did acknowledge that she has been having loose stool to the point where she cannot make it to the bathroom very frequently. Patient also reportedly had a history of C. difficile in the past. Related Data Home Medications ?Medication ?Instructions ?Recorded ?Confirmed atorvastatin 40 mg tablet 40 mg PO HS 05/23/17 04/17/24 [id number]-minerals 1 tab PO DAILY Diet supplement 04/18/18 04/16/24 (Multiple Vitamin, Womens tablet) sertraline 100 mg tablet 100 mg PO DAILY 06/20/18 04/17/24 glipizide 5 mg tablet 5 mg PO DAILY 09/19/18 04/17/24 lisinopril 10 mg tablet 10 mg PO DAILY 11/19/20 04/16/24 tramadol 50 mg tablet 50 mg PO BIDP PRN Pain 04/17/24 04/17/24 trazodone 100 mg tablet 200 mg PO HSP PRN Sleep 04/17/24 04/17/24 Allergies Allergy/AdvReac Type Severity Reaction Status Date / Time latex (LATEX) Allergy Intermediate I-ITCHING Verified 11/29/22 09:57 Penicillins (PENICILLINS) Allergy Mild I-RASH Verified 11/29/22 09:57 Sulfa (Sulfonamide Allergy Unknown I-RASH Verified 11/29/22 09:57 Antibiotics) (SULFA (SULFONAMIDE ANTIBIOTICS)) Tetanus Vaccines and Toxoid Allergy Unknown Verified 11/29/22 09:57 (TETANUS VACCINES & TOXOID) [facility] <LAUREN Haas - Last Filed: 04/16/24 22:00> [facility] Disclaimer: The information contained in this section may have been updated after the patient was seen, as this information can be updated by other users. Medical History (Updated 04/16/24 @ 22:07 by Bret Bernstein MD) Bilateral carotid bruits PAD (peripheral artery disease) HLD (hyperlipidemia) CAD (coronary artery disease) HTN (hypertension) Carotid artery disease Surgical History History of left-sided carotid endarterectomy Social History Smoking Status: Current every day smoker tobacco type: cigarettes packs per day: 1 second hand exposure: Yes alcohol intake: never counseling provided: none substance use type: denies use current occupational status: retired Travel in the last 8 weeks: None household members: spouse housing: house current occupational exposures/hazards: No caffeine: Yes Have you lived/traveled outside [place] in past 30 days?: No Contact w/someone who lives/traveled outside US past 30 days?: No Exposure to someone with infectious disease in past 14 days?: No Do you have a fever (greater than 100.4 F or 38 C)?: No Have you tested positive for COVID-19: No Exposed to someone with COVID-19 in past 14 days?: No Do you have a sore throat?: No Do you have a cough?: No Do you have any weakness?: Yes Do you have any diarrhea?: No Are you experiencing any unusual bleeding?: No Do you have any muscle aches/pain?: No Do you have any abdominal pain?: No Are you experiencing loss of taste or smell?: No Other Medical History Have you received the Flu Vaccine for this season: Yes Have you received the Pneumonia Vaccine: Yes <LAUREN Haas - Last Filed: 04/16/24 22:00> ROS Obtained: Yes Systems reviewed as appropriate & no additional complaints except as documented Physical Exam <LAUREN Haas - Last Filed: 04/16/24 22:00> General General appearance: alert and in no apparent distress Neck Neck exam: Present trachea midline Respiratory Respiratory exam: Present normal lung sounds bilaterally Cardiovascular Cardiovascular exam: Present regular rate Neurological Exam Neurological exam: Present alert and oriented X3 Medical Decision Making <LAUREN Haas - Last Filed: 04/16/24 22:00> Medical Records Medical records reviewed: Yes I reviewed the patient's medical records. Screening: Per USPSTF and CDC recommendations, given the prevalence of disease in our region, it is our hospital?s policy to screen for HIV and viral Hepatitis for all patients aged 18 and over and those with ongoing risk factors. Dank Inquiry Pt receiving controlled substance: No Vital Signs: 04/16/24 16:19 04/16/24 16:30 04/16/24 17:31 Temperature 98.4 F Temperature Source Oral Pulse Rate 69 64 Pulse Rate [Left Radial] 68 Respiratory Rate 18 Blood Pressure 99/61 L 168/65 H Blood Pressure [Right Arm] 101/64 L Blood Pressure Mean 72 Blood Pressure Mean [Right Arm] 76 02 Sat by Pulse Oximetry 96 96 96 Oxygen Delivery Method Room Air Room Air 04/16/24 17:51 04/16/24 18:00 04/16/24 18:30 Temperature Temperature Source Pulse Rate 64 64 61 Pulse Rate [Left Radial] Respiratory Rate Blood Pressure 140/61 162/66 H 149/60 H Blood Pressure [Right Arm] Blood Pressure Mean 81 Blood Pressure Mean [Right Arm] 02 Sat by Pulse Oximetry 97 97 93 L Oxygen Delivery Method Room Air Room Air 04/16/24 19:00 04/16/24 19:31 04/16/24 20:01 Temperature Temperature Source Pulse Rate 60 67 61 Pulse Rate [Left Radial] Respiratory Rate Blood Pressure 155/62 H 181/73 H 143/55 H Blood Pressure [Right Arm] Blood Pressure Mean Blood Pressure Mean [Right Arm] 02 Sat by Pulse Oximetry 97 95 94 L Oxygen Delivery Method 04/16/24 20:30 04/16/24 20:56 04/16/24 21:00 Temperature 98.2 F Temperature Source Pulse Rate 61 63 61 Pulse Rate [Left Radial] Respiratory Rate 16 Blood Pressure 137/49 L 137/49 L 151/58 H Blood Pressure [Right Arm] Blood Pressure Mean Blood Pressure Mean [Right Arm] 02 Sat by Pulse Oximetry 94 L 95 Oxygen Delivery Method Room Air Lab Data Lab results reviewed: Yes I reviewed the patient's lab results. Lab Results 04/16/24 16:30: WBC 6.1, RBC 3.59 L, Hgb 10.9 L, Hct 32.7 L, MCV 91.0, MCH 30.2, MCHC 33.2, RDW 13.6, Plt Count 143, MPV 9.9, Neut % (Auto) 82.0 H, Lymph % (Auto) 12.9, Mathews % (Auto) 4.1, Eos % (Auto) 0.6, Baso % (Auto) 0.4, Neut # (Auto) 5.0, Lymph # (Auto) 0.8, Mathews # (Auto) 0.3, Eos # (Auto) 0.0, Baso # (Auto) 0.0, Sodium 132 L, Potassium 4.4, Chloride 109 H, Carbon Dioxide 21 L, Anion Gap 6.4, BUN 33 H, Creatinine 2.60 H, Estimated Creat Clear 19, Estimated GFR 18 L*, Est GFR ( Amer) 22 L, Glucose 135 H, Calcium 9.7, Magnesium 1.9, Total Bilirubin 0.7, AST 32, ALT 21, Alkaline Phosphatase 87, Total Protein 7.0, Albumin 3.7, Globulin 3.3 H, Albumin/Globulin Ratio 1.1, Hepatitis C Antibody Non reactive, HIV Ag/Ab Combo Qual Negative 04/16/24 18:49: Urine Color Yellow, Urine Appearance Clear, Urine pH 7.5, Ur Specific [place] 1.015, Urine Protein 1+ A, Urine Glucose (UA) Negative, Urine Ketones Negative, Urine Blood Trace-i, Urine Nitrate Positive A, Urine Bilirubin Negative, Urine Urobilinogen 0.2, Ur Leukocyte Esterase 2+ A, Urine RBC Occasional, Urine WBC Tntc, Ur Squamous Epith Cells 5-10, Urine Bacteria 3+ 04/17/24 06:27 04/17/24 06:27 Orders (Tests/Meds): ED MEDICATIONS Generic Name Dose Route Start Last Admin Trade Name Sonya PRN Reason Stop Dose Admin Acetaminophen 650 mg 04/17/24 00:09 Acetaminophen 325mg Tab PO 05/17/24 00:08 Q4HP PRN Fever or Mild Pain (1-3) Al Hydrox/Mg Hydrox/Simethicone 30 ml 04/17/24 00:09 Aluminum/Magnesium/Simethicone 30ml Udc PO 05/17/24 00:08 QIDP PRN Dyspepsia Heparin Sodium (Porcine) 5,000 unit 04/17/24 01:15 04/17/24 01:35 Heparin Sodium 5,000 Unit/Ml Vial SUBCUT 05/17/24 01:14 5,000 unit BID FARIHA Administration Ceftriaxone Sodium 2 gm/ 100 mls @ 200 mls/hr 04/17/24 21:00 Sodium Chloride IV 04/24/24 20:59 Q24H FARIHA Lactated Ringer's 1,000 mls @ 100 mls/hr 04/17/24 00:15 04/17/24 09:21 Lactated Ringer's 1000 Ml Bag IV 04/18/24 00:14 100 mls/hr .Q10H FARIHA Administration Nicotine 21 mg 04/17/24 00:09 Nicotine 21mg/24hr Patch TD 05/17/24 00:08 DAILYP PRN Nicotine Cravings Ondansetron HCl 4 mg 04/17/24 00:09 Ondansetron 4mg/2ml Vial IV 05/17/24 00:08 Q8HP PRN Nausea Pantoprazole Sodium 40 mg 04/17/24 21:00 Pantoprazole 40mg Tablet PO 05/17/24 20:59 HS FARIHA Sodium Chloride 10 ml 04/17/24 00:07 Sodium Chloride 0.9% 10ml Flush Syringe IV 05/17/24 00:06 NEEDED PRN Maintain IV Site Discontinued Medications Generic Name Dose Route Start Last Admin Trade Name Sonya PRN Reason Stop Dose Admin Acetaminophen 1,000 mg 04/16/24 16:28 04/16/24 16:57 Acetaminophen 500mg Tab PO 04/16/24 16:29 1,000 mg ONCE ONE Administration Ceftriaxone Sodium 1 gm 04/17/24 00:05 04/17/24 01:48 Ceftriaxone 1gm Vial IM 04/17/24 00:06 Not Given ONCE ONE Enoxaparin Sodium 40 mg 04/17/24 09:00 Enoxaparin 40mg/0.4ml Syringe SUBCUT 05/17/24 08:59 DAILY FARIHA Sodium Chloride 1,000 mls @ 999 mls/hr 04/16/24 17:51 04/16/24 18:22 Sod Chlor 0.9% 1000ml Bag IV 04/16/24 18:51 999 mls/hr .Q1H1M ONE Administration Ceftriaxone Sodium 1 gm/ 50 mls @ 100 mls/hr 04/16/24 20:30 04/16/24 21:20 Sodium Chloride IV 04/16/24 20:59 100 mls/hr ONCE ONE Administration Ceftriaxone Sodium 1 gm/ 50 mls @ 100 mls/hr 04/17/24 00:46 04/17/24 01:04 Sodium Chloride IV 04/17/24 01:15 100 mls/hr ONCE ONE Administration ORDERS Category Date Time Status CT bony pelvis Stat Cat Scan 04/16/24 16:[address] cervical spine wo con Stat Cat Scan 04/16/24 16:[address] head/brain wo con Stat Cat Scan 04/16/24 16:[address] lumbar spine wo con Stat Cat Scan 04/16/24 16:[address] thoracic spine wo con Stat Cat Scan 04/16/24 16:30 Completed CBC w/Auto Diff [Complete Blood Count Auto Diff] Stat Lab 04/16/24 16:30 Completed CMP [Comprehensive Metabolic Panel] Stat Lab 04/16/24 16:30 Completed Diarrhea 23 Panel, PCR Stat Lab 04/16/24 12:10 Received HIV Combo Stat Lab 04/16/24 16:30 Completed Hep C Ab with Reflex to RNA Stat Lab 04/16/24 16:30 Completed Magnesium Stat Lab 04/16/24 16:30 Completed UA [Urinalysis and Microscopic] Stat Lab 04/16/24 18:49 Completed Urine Culture Stat Micro 04/16/24 18:49 Received Medical Decision Narrative: In summary patient is a 78-year-old female who presents to the emergency department for evaluation of a fall and functional decline. Patient is initially with a blood pressure of 101/64 heart rate 68 breathing 18 times a minute satting at 96% on room air upon arrival, afebrile. Physical exam is remarkable for a small skin tear at the olecranon of the right arm but no bony deformities noted, no contusions abrasions ecchymosis noted. Patient is neurovascularly intact in all 4 extremities, patient's Glascow coma score 15, patient is awake alert and oriented person place and circumstance. Breath sounds are clear and equal bilaterally to the bases without adventitious sounds. Patient has normal sinus rhythm on the bedside monitor and normal heart sounds. Patient has no dorsal spine neck or head tenderness.. Differential diagnosis includes accidental fall versus asthenia versus electrolyte abnormalities versus infection versus occult fracture etc. Initial workup will be conducted with hematologic labs urinalysis noncontrasted trauma scans. Initial interventions include crystalloid bolus. Initial workup reviewed by mt normal white count with no neutrophilic shift, sodium 132 chloride of 109 CO2 of 21 gap of 6.4 BUN of 23 creatinine of 2.6 which is near her baseline from approximately a year ago, however her GFR is 18 today which is significantly different with the remainder of her hematologic labs being nonactionable, urinalysis shows 1+ protein trace blood positive nitrites positive leukocyte esterase with microscopic exam showing too numerous to count red blood cells occasional red blood cells 5-10 epithelial cells and 3+ bacteria. Upon repeat evaluation patient is agreeable for admission for evaluation and PT OT assessment as well as treating her acute on chronic chronic kidney disease. Given this interactive discussion with the hospitalist regarding patient management and she will be admitted for further evaluation and care <Bret Bernstein MD - Last Filed: 04/16/24 22:07> Vital Signs: 04/16/24 16:19 04/16/24 16:30 04/16/24 17:31 Temperature 98.4 F Temperature Source Oral Pulse Rate 69 64 Pulse Rate [Left Radial] 68 Respiratory Rate 18 Blood Pressure 99/61 L 168/65 H Blood Pressure [Right Arm] 101/64 L Blood Pressure Mean 72 Blood Pressure Mean [Right Arm] 76 02 Sat by Pulse Oximetry 96 96 96 Oxygen Delivery Method Room Air Room Air 04/16/24 17:51 04/16/24 18:00 04/16/24 18:30 Temperature Temperature Source Pulse Rate 64 64 61 Pulse Rate [Left Radial] Respiratory Rate Blood Pressure 140/61 162/66 H 149/60 H Blood Pressure [Right Arm] Blood Pressure Mean 81 Blood Pressure Mean [Right Arm] 02 Sat by Pulse Oximetry 97 97 93 L Oxygen Delivery Method Room Air Room Air 04/16/24 19:00 04/16/24 19:31 04/16/24 20:01 Temperature Temperature Source Pulse Rate 60 67 61 Pulse Rate [Left Radial] Respiratory Rate Blood Pressure 155/62 H 181/73 H 143/55 H Blood Pressure [Right Arm] Blood Pressure Mean Blood Pressure Mean [Right Arm] 02 Sat by Pulse Oximetry 97 95 94 L Oxygen Delivery Method 04/16/24 20:30 04/16/24 20:56 04/16/24 21:00 Temperature 98.2 F Temperature Source Pulse Rate 61 63 61 Pulse Rate [Left Radial] Respiratory Rate 16 Blood Pressure 137/49 L 137/49 L 151/58 H Blood Pressure [Right Arm] Blood Pressure Mean Blood Pressure Mean [Right Arm] 02 Sat by Pulse Oximetry 94 L 95 Oxygen Delivery Method Room Air Lab Data Lab Results 04/16/24 16:30: WBC 6.1, RBC 3.59 L, Hgb 10.9 L, Hct 32.7 L, MCV 91.0, MCH 30.2, MCHC 33.2, RDW 13.6, Plt Count 143, MPV 9.9, Neut % (Auto) 82.0 H, Lymph % (Auto) 12.9, Mathews % (Auto) 4.1, Eos % (Auto) 0.6, Baso % (Auto) 0.4, Neut # (Auto) 5.0, Lymph # (Auto) 0.8, Mathews # (Auto) 0.3, Eos # (Auto) 0.0, Baso # (Auto) 0.0, Sodium 132 L, Potassium 4.4, Chloride 109 H, Carbon Dioxide 21 L, Anion Gap 6.4, BUN 33 H, Creatinine 2.60 H, Estimated Creat Clear 19, Estimated GFR 18 L*, Est GFR ( Amer) 22 L, Glucose 135 H, Calcium 9.7, Magnesium 1.9, Total Bilirubin 0.7, AST 32, ALT 21, Alkaline Phosphatase 87, Total Protein 7.0, Albumin 3.7, Globulin 3.3 H, Albumin/Globulin Ratio 1.1, Hepatitis C Antibody Non reactive, HIV Ag/Ab Combo Qual Negative 04/16/24 18:49: Urine Color Yellow, Urine Appearance Clear, Urine pH 7.5, Ur Specific [place] 1.015, Urine Protein 1+ A, Urine Glucose (UA) Negative, Urine Ketones Negative, Urine Blood Trace-i, Urine Nitrate Positive A, Urine Bilirubin Negative, Urine Urobilinogen 0.2, Ur Leukocyte Esterase 2+ A, Urine RBC Occasional, Urine WBC Tntc, Ur Squamous Epith Cells 5-10, Urine Bacteria 3+ Orders (Tests/Meds): ED MEDICATIONS Generic Name Dose Route Start Last Admin Trade Name Sonya PRN Reason Stop Dose Admin Acetaminophen 650 mg 04/17/24 00:09 Acetaminophen 325mg Tab PO 05/17/24 00:08 Q4HP PRN Fever or Mild Pain (1-3) Al Hydrox/Mg Hydrox/Simethicone 30 ml 04/17/24 00:09 Aluminum/Magnesium/Simethicone 30ml Udc PO 05/17/24 00:08 QIDP PRN Dyspepsia Heparin Sodium (Porcine) 5,000 unit 04/17/24 01:15 04/17/24 01:35 Heparin Sodium 5,000 Unit/Ml Vial SUBCUT 05/17/24 01:14 5,000 unit BID FARIHA Administration Ceftriaxone Sodium 2 gm/ 100 mls @ 200 mls/hr 04/17/24 21:00 Sodium Chloride IV 04/24/24 20:59 Q24H FARIHA Lactated Ringer's 1,000 mls @ 100 mls/hr 04/17/24 00:15 04/17/24 09:21 Lactated Ringer's 1000 Ml Bag IV 04/18/24 00:14 100 mls/hr .Q10H FARIHA Administration Nicotine 21 mg 04/17/24 00:09 Nicotine 21mg/24hr Patch TD 05/17/24 00:08 DAILYP PRN Nicotine Cravings Ondansetron HCl 4 mg 04/17/24 00:09 Ondansetron 4mg/2ml Vial IV 05/17/24 00:08 Q8HP PRN Nausea Pantoprazole Sodium 40 mg 04/17/24 21:00 Pantoprazole 40mg Tablet PO 05/17/24 20:59 HS FARIHA Sodium Chloride 10 ml 04/17/24 00:07 Sodium Chloride 0.9% 10ml Flush Syringe IV 05/17/24 00:06 NEEDED PRN Maintain IV Site Discontinued Medications Generic Name Dose Route Start Last Admin Trade Name Sonya PRN Reason Stop Dose Admin Acetaminophen 1,000 mg 04/16/24 16:28 04/16/24 16:57 Acetaminophen 500mg Tab PO 04/16/24 16:29 1,000 mg ONCE ONE Administration Ceftriaxone Sodium 1 gm 04/17/24 00:05 04/17/24 01:48 Ceftriaxone 1gm Vial IM 04/17/24 00:06 Not Given ONCE ONE Enoxaparin Sodium 40 mg 04/17/24 09:00 Enoxaparin 40mg/0.4ml Syringe SUBCUT 05/17/24 08:59 DAILY FARIHA Sodium Chloride 1,000 mls @ 999 mls/hr 04/16/24 17:51 04/16/24 18:22 Sod Chlor 0.9% 1000ml Bag IV 04/16/24 18:51 999 mls/hr .Q1H1M ONE Administration Ceftriaxone Sodium 1 gm/ 50 mls @ 100 mls/hr 04/16/24 20:30 04/16/24 21:20 Sodium Chloride IV 04/16/24 20:59 100 mls/hr ONCE ONE Administration Ceftriaxone Sodium 1 gm/ 50 mls @ 100 mls/hr 04/17/24 00:46 04/17/24 01:04 Sodium Chloride IV 04/17/24 01:15 100 mls/hr ONCE ONE Administration ORDERS Category Date Time Status CT bony pelvis Stat Cat Scan 04/16/24 16:[address] cervical spine wo con Stat Cat Scan 04/16/24 16:[address] head/brain wo con Stat Cat Scan 04/16/24 16:[address] lumbar spine wo con Stat Cat Scan 04/16/24 16:[address] thoracic spine wo con Stat Cat Scan 04/16/24 16:30 Completed CBC w/Auto Diff [Complete Blood Count Auto Diff] Stat Lab 04/16/24 16:30 Completed CMP [Comprehensive Metabolic Panel] Stat Lab 04/16/24 16:30 Completed Diarrhea 23 Panel, PCR Stat Lab 04/16/24 12:10 Received HIV Combo Stat Lab 04/16/24 16:30 Completed Hep C Ab with Reflex to RNA Stat Lab 04/16/24 16:30 Completed Magnesium Stat Lab 04/16/24 16:30 Completed UA [Urinalysis and Microscopic] Stat Lab 04/16/24 18:49 Completed Urine Culture Stat Micro 04/16/24 18:49 Received Medical Decision Narrative: In summary patient is a 78-year-old female who presents to the emergency department for evaluation of a fall and functional decline. Patient is initially with a blood pressure of 101/64 heart rate 68 breathing 18 times a minute satting at 96% on room air upon arrival, afebrile. Physical exam is remarkable for a small skin tear at the olecranon of the right arm but no bony deformities noted, no contusions abrasions ecchymosis noted. Patient is neurovascularly intact in all 4 extremities, patient's Glascow coma score 15, patient is awake alert and oriented person place and circumstance. Breath sounds are clear and equal bilaterally to the bases without adventitious sounds. Patient has normal sinus rhythm on the bedside monitor and normal heart sounds. Patient has no dorsal spine neck or head tenderness.. Differential diagnosis includes accidental fall versus asthenia versus electrolyte abnormalities versus infection versus occult fracture etc. Initial workup will be conducted with hematologic labs urinalysis noncontrasted trauma scans. Initial interventions include crystalloid bolus. Initial workup reviewed by me normal white count with no neutrophilic shift, sodium 132 chloride of 109 CO2 of 21 gap of 6.4 BUN of 23 creatinine of 2.6 which is near her baseline from approximately a year ago, however her GFR is 18 today which is significantly different with the remainder of her hematologic labs being nonactionable, urinalysis shows 1+ protein trace blood positive nitrites positive leukocyte esterase with microscopic exam showing too numerous to count red blood cells occasional red blood cells 5-10 epithelial cells and 3+ bacteria which will be treated with ceftriaxone. upon repeat evaluation patient is agreeable for admission for evaluation and PT OT assessment as well as treating her acute on chronic chronic kidney disease. Given this interactive discussion with the hospitalist regarding patient management and she will be admitted for further evaluation and care. I was consulted by the [facility], and we discussed the complexity of the problems being addressed. I approved the treatment and management plan for this patient's care in the emergency department, thus performing a substantive portion of the medical decision making. Bret Bernstein MD Critical Care <LAUREN Haas - Last Filed: 04/16/24 22:00> Critical Care Time Critical Care Time: No
--- NOTE | 2024-04-16 16:30 | CT_ITS ---
PROCEDURE INFORMATION: Exam: CT Thoracic Spine Without Contrast Exam date and time: 04/16/2024 4:55 PM Age: 78 years old Clinical indication: Injury or trauma; Additional info: Trauma, critical injury suspected TECHNIQUE: Imaging protocol: Computed tomography of the thoracic spine without contrast. Total images: 365 Radiation optimization: All CT scans at this facility use at least one of these dose optimization techniques: automated exposure control; mA and/or kV adjustment per patient size (includes targeted exams where dose is matched to clinical indication); or iterative reconstruction. COMPARISON: CT THORACIC SPINE WO CON 04/16/2024 4:55 PM FINDINGS: Bones/joints: Multilevel degenerative changes of the thoracic spine. No evidence of acute fracture. Disc space narrowing and bilateral neural foraminal narrowing noted at T3-4, T4-5, T5-6, T6-7, T8-9, T9-10. Anterior hypertrophic bridging noted at multiple levels. Cystic changes noted anteriorly within the body of T11. Soft tissues: Unremarkable. IMPRESSION: 1. Multilevel degenerative changes of the thoracic spine. 2. No evidence of acute fracture.
--- NOTE | 2024-04-16 16:30 | CT_ITS ---
PROCEDURE INFORMATION: Exam: CT Lumbar Spine Without Contrast Exam date and time: 04/16/2024 4:58 PM Age: 78 years old Clinical indication: Injury or trauma; Additional info: Trauma, critical injury suspected TECHNIQUE: Imaging protocol: Computed tomography of the lumbar spine without contrast. Total images: 362 Radiation optimization: All CT scans at this facility use at least one of these dose optimization techniques: automated exposure control; mA and/or kV adjustment per patient size (includes targeted exams where dose is matched to clinical indication); or iterative reconstruction. COMPARISON: CT THORACIC SPINE WO CON 04/16/2024 4:55 PM FINDINGS: Bones/joints: The lumbar spine demonstrates mild degenerative changes at multiple levels. Disc space narrowing and bilateral neural foraminal narrowing noted at L1-L2, L2-L3, L3-L4 and L5-S1. No evidence of acute fracture. Soft tissues: Unremarkable. IMPRESSION: 1. The lumbar spine demonstrates mild degenerative changes at multiple levels. 2. Disc space narrowing and bilateral neural foraminal narrowing noted at L1-L2, L2-L3, L3-L4 and L5-S1. 3. No evidence of acute fracture.
--- NOTE | 2024-04-16 16:30 | CT_ITS ---
PROCEDURE INFORMATION: Exam: CT Head Without Contrast Exam date and time: 04/16/2024 4:50 PM Age: 78 years old Clinical indication: Injury or trauma; Additional info: Trauma, critical injury suspected TECHNIQUE: Imaging protocol: Computed tomography of the head without contrast. Radiation optimization: All CT scans at this facility use at least one of these dose optimization techniques: automated exposure control; mA and/or kV adjustment per patient size (includes targeted exams where dose is matched to clinical indication); or iterative reconstruction. COMPARISON: No relevant prior studies available. FINDINGS: Brain: Intracranial vascular calcification. Decreased attenuation of the supratentorial white matter is likely secondary to chronic microvascular ischemia. No acute intracranial hemorrhage. Chronic lacunar infarct at the left basal ganglia/nieves radiata. Cerebral ventricles: Ventricular and subarachnoid spaces are age appropriate. Paranasal sinuses: Mild paranasal sinus disease. Mastoid air cells: Visualized mastoid air cells are well aerated. Bones: Unremarkable. No acute fracture. Soft tissues: Unremarkable. IMPRESSION: No acute intracranial abnormality.
--- NOTE | 2024-04-16 16:30 | CT_ITS ---
PROCEDURE INFORMATION: Exam: CT Pelvis Without Contrast, Skeleton Exam date and time: 04/16/2024 5:02 PM Age: 78 years old Clinical indication: Injury or trauma; Additional info: Trauma, critical injury suspected TECHNIQUE: Imaging protocol: Computed tomography of the pelvis without contrast. Exam focused on the skeleton. Total images: 889 Radiation optimization: All CT scans at this facility use at least one of these dose optimization techniques: automated exposure control; mA and/or kV adjustment per patient size (includes targeted exams where dose is matched to clinical indication); or iterative reconstruction. COMPARISON: CT ABDOMEN PELVIS WO CON 09/17/2021 7:49 AM FINDINGS: Vasculature: Mild atherosclerotic disease. Bones/joints: Postoperative changes of the right hip with intramedullary rivera in place. Degenerative changes of both SI joints, greater on the right. Degenerative changes of both hips. No evidence of acute fracture or dislocation. Soft tissues: Soft tissues are within normal limits. IMPRESSION: 1. Degenerative changes of both hips. 2. No evidence of acute fracture or dislocation. 3. Degenerative changes of both SI joints, greater on the right.
--- NOTE | 2024-04-16 16:30 | CT_ITS ---
PROCEDURE INFORMATION: Exam: CT Cervical Spine Without Contrast Exam date and time: 04/16/2024 4:52 PM Age: 78 years old Clinical indication: Injury or trauma; Additional info: Trauma, critical injury suspected TECHNIQUE: Imaging protocol: Computed tomography of the cervical spine without contrast. Radiation optimization: All CT scans at this facility use at least one of these dose optimization techniques: automated exposure control; mA and/or kV adjustment per patient size (includes targeted exams where dose is matched to clinical indication); or iterative reconstruction. COMPARISON: CT HEAD/BRAIN WO CON 04/16/2024 4:50 PM FINDINGS: Bones: Grade 1 anterolisthesis of C6 on C7. Vertebral body heights are preserved. Ssmt-nn-uzjzxwrh degenerative change about the dens. Mild to moderate prevertebral osteophytosis. Bilateral facet joint degenerative change. No acute cervical spine fracture. Multilevel cervical central and foraminal stenoses. Lungs: Nodular density at the right upper lobe measures 1.3 cm. Pleural spaces: No visible pneumothorax. Vasculature: Vascular calcification. Soft tissues: Unremarkable. IMPRESSION: 1. No acute cervical spine fracture. 2. 1.3 cm nodular density at the right upper lobe. For both low risk and high risk patients, consider CT Chest at 3 months, PET/CT or biopsy. (Reference: Rosi) REFERENCES: Princesshomarty H, et al. Guidelines for Management of Incidental Pulmonary Nodules Detected on CT Images: From the Fleischner Society 2017. Radiology. 2017;284(1):228-243.
[2024-04-16 16:46] LABS: Basophils % 0.4 % (0.1-2.0); Eosinophils % 0.6 % (0.1-12.0); Hematocrit 32.7 % (37.0-47.0); Hemoglobin 10.9 g/dL (12.2-16.2); Lymphocytes # 0.8 K/mm3 (0.7-4.5); Lymphocytes % 12.9 % (10-50); Mean Corpuscular HGB Conc 33.2 g/dL (31.8-35.4); Mean Corpuscular Hemoglobin 30.2 pg (27.0-31.2); Mean Platelet Volume 9.9 fl (7.4-10.4); Monocytes # 0.3 K/mm3 (0.1-1.0); Monocytes % 4.1 % (1.7-9.3); Platelet Count 143 K/mm3 (142-424); Red Blood Count 3.59 M/mm3 (4.20-5.40); Red Cell Distribution Width 13.6 % (11.5-17.5); White Blood Count 6.1 K/mm3 (4.8-10.8)
[2024-04-16 16:53] LABS: Albumin Level 3.7 g/dl (3.5-5.0); Chloride 109 mmol/L (98-107); Potassium 4.4 mmoL/L (3.5-5.1); Sodium 132 mmol/L (136-145)
[2024-04-16 16:55] LABS: Blood Urea Nitrogen 33 mg/dl (7-17); Creatinine Clearance Estimated 19 mL/min (50-200); Estimated Glomerular Filt Rate 18 ml/min (>60); GFR (African American) 22 ML/MIN (>60)
[2024-04-16 16:56] LABS: Alanine Aminotransferase 21 U/L (12-78); Albumin/Globulin Ratio 1.1 (1.1-1.8); Alkaline Phosphatase 87 U/L (38-126); Anion Gap 6.4 mEq/L (5-15); Aspartate Amino Transferase 32 U/L (14-36); Bilirubin,Total 0.7 mg/dl (0.2-1.3); Calcium 9.7 mg/dl (8.4-10.2); Carbon Dioxide 21 mmol/L (22.0-30.0); Globulin 3.3 g/dL (1.3-3.2); Glucose 135 mg/dl (74-100); Magnesium 1.9 mg/dl (1.6-2.3)
[2024-04-16] MEDS: ACETAMINOPHEN 500MG TAB 1000 MG PO (16:57)
[2024-04-16] MEDS: 0.9 % SODIUM CHLORIDE 1000ML 1,000 ML 999 ML IV (18:22)
[2024-04-16 18:54] LABS: Microscopic, Urine URINE MICROSCOPIC (MICROSCOPIC)
[2024-04-16 19:42] LABS: Appearance,Urine CLEAR (Clear); Bilirubin,Urine Negative (Negative); Blood, Urine TRACE-I (Negative); Color,Urine YELLOW (Yellow); Glucose,Urine (UA) Negative (Negative); Ketones,Urine Negative (Negative); Leukocyte Esterase,Urine 2+ (Negative); Nitrate,Urine POSITIVE (Negative); PH,Urine 7.5 (5.0-8.5); Protein,Urine 1+ (Negative); Specific Gravity, Urine 1.015 (1.005-1.030); Urobilinogen,Urine 0.2 EU/dl (0.2)
[2024-04-16 19:57] LABS: Bacteria,Urine 3+ /lpf; RBC,Urine Occasional #/hpf (0-3); WBC,Urine TNTC #/hpf (0-3)
[2024-04-16] MEDS: CEFTRIAXONE 1 GM 1 GM in 0.9 % SODIUM CHLORIDE 50 ML IV (21:20)
--- NOTE | 2024-04-16 21:24 | PC.NURSE ---
as Per MAR started Ceftraxione at 50mL's/hr
--- NOTE | 2024-04-16 23:18 | P.HP_ITS ---
History of Present Illness *Admission Date: 04/16/24 *Reason for visit:: Weakness, diarrhea *History of present illness: 78-year-old patient with past medical history of recurrent diarrhea, renal insufficiency, seizures, TIA x 2,, hyperlipidemia, diabetes, hypertension, CAD, daily smoker, carotid artery disease. Patient presents with weakness, acute on chronic diarrhea, and malaise x 24 hours. Patient suffered from loose stools, and weakness today. Patient reportedly fell from chair to floor today and was found by . Patient reportedly covered in stool per 's report. I noted smelly fecal odor when admitting patient today. The odor smelled extremely suspicious for C. difficile. Patient reports history of chronic diarrhea for several years . States her last diagnosis of C. difficile was 3 to 4 years ago. Denies dysuria, frequency or urinary urgency issues. However, patient's UA extremely suspicious for UTI. UA with +2 LE, WBC TNTC, positive nitrates. Denies fevers, chest pain, abdominal pain, known sick contacts, or recent travel. Patient also reports history of renal insufficiency BUN 33, CR 2.6, NA 132, CL 109. Patient states that she seen [facility] several years ago, but has not seen nephrology since. Reports no history of dialysis. Also reports normal urinary patterns, and states her urine is generally light yellow. States she suffers from chronic chills at baseline. Denies history of CHF, MIs, or CVA. CT head, cervical, thoracic, lumbar, pelvis films done in emergency room with arthritic changes and without acute pathology. [facility] Disclaimer: The information contained in this section may have been updated after the patient was seen, as this information can be updated by other users. Medical History (Updated 04/16/24 @ 22:07 by Bret Bernstein MD) Bilateral carotid bruits PAD (peripheral artery disease) HLD (hyperlipidemia) CAD (coronary artery disease) HTN (hypertension) Carotid artery disease Surgical History History of left-sided carotid endarterectomy Social History Smoking Status: Current every day smoker tobacco type: cigarettes packs per day: 1 second hand exposure: Yes alcohol intake: never counseling provided: none substance use type: denies use current occupational status: retired Travel in the last 8 weeks: None household members: spouse housing: house current occupational exposures/hazards: No caffeine: Yes Have you lived/traveled outside [place] in past 30 days?: No Contact w/someone who lives/traveled outside US past 30 days?: No Exposure to someone with infectious disease in past 14 days?: No Do you have a fever (greater than 100.4 F or 38 C)?: No Have you tested positive for COVID-19: No Exposed to someone with COVID-19 in past 14 days?: No Do you have a sore throat?: No Do you have a cough?: No Do you have any weakness?: Yes Do you have any diarrhea?: No Are you experiencing any unusual bleeding?: No Do you have any muscle aches/pain?: No Do you have any abdominal pain?: No Are you experiencing loss of taste or smell?: No Other Medical History Have you received the Flu Vaccine for this season: Yes Have you received the Pneumonia Vaccine: Yes Review of Systems Review of Systems Review of systems:: pertinent systems reviewed and negative unless documented below Constitutional Constitutional: Reports system reviewed and no additional complaints, except as documented Meds Home Medications and Allergies Home Medications ?Medication ?Instructions ?Recorded ?Confirmed ?Type atorvastatin 40 mg tablet 40 mg PO QDAY Cholesterol 05/23/17 04/16/24 History ruuzxqumpiyb-Zk-mtso-minerals 1 tab PO DAILY Diet supplement 04/18/18 04/16/24 History (Multiple Vitamin, Womens tablet) sertraline 100 mg tablet 100 mg PO QDAY Depression 06/20/18 04/16/24 History glipizide 5 mg tablet 5 mg PO DAILY Diabetes 09/19/18 04/16/24 History lisinopril 10 mg tablet 10 mg PO DAILY High blood pressure 11/19/20 04/16/24 History New Prescriptions to Start Prescriptions: Allergies Allergy/AdvReac Type Severity Reaction Status Date / Time latex (LATEX) Allergy Intermediate I-ITCHING Verified 11/29/22 09:57 Penicillins (PENICILLINS) Allergy Mild I-RASH Verified 11/29/22 09:57 Sulfa (Sulfonamide Allergy Unknown I-RASH Verified 11/29/22 09:57 Antibiotics) (SULFA (SULFONAMIDE ANTIBIOTICS)) Tetanus Vaccines and Toxoid Allergy Unknown Verified 11/29/22 09:57 (TETANUS VACCINES & TOXOID) Exam Data for Last 24 hours Vital signs and Labs for Last 24 Hours: Temp Pulse Resp BP Pulse Ox O2 Del Method 98.2 F 61 16 151/58 H 95 Room Air 04/16/24 20:56 04/16/24 21:00 04/16/24 20:56 04/16/24 21:00 04/16/24 21:00 04/16/24 20:56 Laboratory Results - last 24 hr 04/16/24 16:30: WBC 6.1, RBC 3.59 L, Hgb 10.9 L, Hct 32.7 L, MCV 91.0, MCH 30.2, MCHC 33.2, RDW 13.6, Plt Count 143, MPV 9.9, Neut % (Auto) 82.0 H, Lymph % (Auto) 12.9, [place] % (Auto) 4.1, Eos % (Auto) 0.6, Baso % (Auto) 0.4, Neut # (Auto) 5.0, Lymph # (Auto) 0.8, [place] # (Auto) 0.3, Eos # (Auto) 0.0, Baso # (Auto) 0.0, Sodium 132 L, Potassium 4.4, Chloride 109 H, Carbon Dioxide 21 L, Anion Gap 6.4, BUN 33 H, Creatinine 2.60 H, Estimated Creat Clear 19, Estimated GFR 18 L*, Est GFR ( Amer) 22 L, Glucose 135 H, Calcium 9.7, Magnesium 1.9, Total Bilirubin 0.7, AST 32, ALT 21, Alkaline Phosphatase 87, Total Protein 7.0, Albumin 3.7, Globulin 3.3 H, Albumin/Globulin Ratio 1.1 04/16/24 18:49: Urine Color Yellow, Urine Appearance Clear, Urine pH 7.5, Ur Specific [place] 1.015, Urine Protein 1+ A, Urine Glucose (UA) Negative, Urine Ketones Negative, Urine Blood Trace-i, Urine Nitrate Positive A, Urine Bilirubin Negative, Urine Urobilinogen 0.2, Ur Leukocyte Esterase 2+ A, Urine RBC Occasional, Urine WBC Tntc, Ur Squamous Epith Cells 5-10, Urine Bacteria 3+ I & O for Last 24 hours: Intake & Output 04/13/24 04/14/24 04/15/24 04/16/24 23:59 23:59 23:59 23:59 Weight 65.771 kg Constitutional Constitutional: mild distress, thin and chronically ill appearing *Routine HEENT Exam Head: Present normocephalic Eye: Present EOMI ENT: Present mucous membranes dry *Routine Neck Exam Neck: Present supple and full ROM *Routine Respiratory Exam Respiratory: Present CTA bilaterally and normal respiratory effort *Routine Cardiovascular Exam Cardiovascular: Present RRR and Normal S1 *Routine Abdominal Exam Abdominal: Present soft and normoactive bowel sounds *Routine Rectal Exam Rectal:: deferred *Routine Genitalia Exam Genitalia:: deferred *Routine Extremities Exam Extremities: Present normal capillary refill *Routine Skin Exam Skin: Present intact *Routine Neurological Exam Neurological: Present alert and oriented X3 Assessment and Plan *Assessment and plan (1) Acute UTI: Status: Acute Category: Medical Code(s): N39.0 - Urinary tract infection, site not specified (2) Diarrhea: Status: Acute Qualifiers: Diarrhea type: unspecified type Qualified Code(s): R19.7 - Diarrhea, unspecified Category: Medical Code(s): R19.7 - Diarrhea, unspecified (3) Declining functional status: Status: Acute Category: Medical Code(s): R53.81 - Other malaise (4) Acute kidney injury superimposed on chronic kidney disease: Status: Acute Category: Medical Code(s): N17.9 - Acute kidney failure, unspecified; N18.9 - Chronic kidney disease, unspecified (5) Diabetes mellitus type 2, controlled: Status: Chronic Qualifiers: Diabetes mellitus fdc insulin use: without fdc use Diabetes mellitus complication status: without complication Qualified Code(s): E11.9 - Type 2 diabetes mellitus without complications Category: Medical Code(s): E11.9 - Type 2 diabetes mellitus without complications (6) CAD (coronary artery disease): Status: Chronic Qualifiers: Coronary Disease-Associated Artery/Lesion type: [place] artery [place] vs. transplanted heart: [place] heart Associated angina: without angina Qualified Code(s): I25.10 - Atherosclerotic heart disease of [place] coronary artery without angina pectoris Category: Medical Code(s): I25.10 - Atherosclerotic heart disease of [place] coronary artery without angina pectoris (7) HTN (hypertension): Status: Chronic Qualifiers: Hypertension type: essential hypertension Qualified Code(s): I10 - Essential (primary) hypertension Category: Medical Code(s): I10 - Essential (primary) hypertension (8) Tobacco dependence syndrome: Status: Chronic Category: Medical Code(s): F17.200 - Nicotine dependence, unspecified, uncomplicated (9) Carotid artery disease: Status: Chronic Qualifiers: Laterality: bilateral Carotid artery disease type: stenosis Qualified Code(s): I65.23 - Occlusion and stenosis of bilateral carotid arteries Category: Medical Code(s): I77.9 - Disorder of arteries and arterioles, unspecified (10) HLD (hyperlipidemia): Status: Chronic Qualifiers: Hyperlipidemia type: mixed hyperlipidemia Qualified Code(s): E78.2 - Mixed hyperlipidemia Category: Medical Code(s): E78.5 - Hyperlipidemia, unspecified Plan 78-year-old patient with past medical history of recurrent diarrhea, renal insufficiency, seizures, TIA x 2,, hyperlipidemia, diabetes, hypertension, CAD, daily smoker, carotid artery disease. Patient presents with weakness, acute on chronic diarrhea, and malaise x 24 hours. UA with +2 LE, WBC TNTC, positive nitrates, BUN 33, CR 2.6, NA 132, CL 109. CT head, cervical, thoracic, lumbar, pelvis films done in emergency room with arthritic changes and without acute pathology. Problems as listed below: Lab/imaging reviewed at time of admission: ?CT head, cervical, thoracic, lumbar, pelvis films done in emergency room with arthritic changes and without acute pathology. ?UA with +2 LE, WBC TNTC, positive nitrates, negative ketones, negative glucose, trace blood. ?WBC 6.7, Hgb 10.9, platelets 143, NA 132, K4.4, CL 109, serum CO2 21, BUN 33, CR 2.6, estimated GFR 18, MAG 1.9, ALB 3.7 Adult failure to thrive secondary to UTI: ? UA as noted above in labs/imaging section with strong signs of UTI. Start IV Rocephin 2 g every 24 x 7 days. Follow urine culture results during hospitalization. I will order procalcitonin for a.m. CATALINA superimposed on CKD: ? Cautious hydration with LR 100 cc/h x 24 hours. Plus cautious use of nephrotoxic drugs. Recurrent diarrhea: ? Patient's diarrhea smells odiferous and like C. difficile. Will order C. difficile and diarrhea panel. Also ordered stool culture. IV ABX as mentioned in UTI section. Followed correct electrolytes as needed. ? Patient states last bout of C. difficile occurred 3 to 4 years ago. Daily smoker: 21 mg nicotine patch daily as needed nicotine cravings Diabetes: Glipizide 5 mg p.o. daily, sign scale insulin, ACHS Accu-Cheks, diabetic diet. Hyperlipidemia: Atorvastatin Mood disorder: Sertraline 100 mg p.o. daily Hypertension: hold lisinopril secondary to renal insufficiency. Hydralazine 10 mg IV every 6 as needed SBP over 160 PPx heparin 5000 units subcu twice daily CODE STATUS full MDM [place]: Moderate, patient presents with adult failure to thrive, UTI, and acute on chronic diarrhea issues with systemic weakness. Data: Moderate. See above. I spoke with the emergency room doc and agreed patient required admission secondary to weakness, diarrhea, UTI issues. Risk: Moderate. Prescription drug management as mentioned above including maintenance IV fluids. 35 minutes of total care time spent on patient by Dr. Haro 04/16/2024
[2024-04-17] MEDS: LACTATED RINGERS 1000ML 1,000 ML 100 ML IV ×2 (00:57→09:21)
[2024-04-17] MEDS: CEFTRIAXONE SODIUM 1 GM in 0.9 % SODIUM CHLORIDE 50 ML IV (01:04)
[2024-04-17 01:21] LABS: Adenovirus,PCR Not Detected (NotDetected); Bordetella Pertussis Not Detected (NotDetected); Chlamydophila Pneumoniae, PCR Not Detected (NotDetected); Coronavirus 229E Not Detected (NotDetected); Coronavirus NL63 Not Detected (NotDetected); Coronavirus OC43 Not Detected (NotDetected); Coronovirus HKU1,PCR Not Detected (NotDetected); Human Metapneumovirus Not Detected (NotDetected); Influenza A, PCR Not Detected (NotDetected); Influenza AH1, 2009 Not Detected (NotDetected); Influenza AH1, PCR Not Detected (NotDetected); Influenza AH3,PCR Not Detected (NotDetected); Influenza B, PCR Not Detected (NotDetected); Mycoplasma Pneumoniae, PCR Not Detected (NotDetected); Parainfluenza 1, PCR Not Detected (NotDetected); Parainfluenza 2, PCR Not Detected (NotDetected); Parainfluenza 3, PCR Not Detected (NotDetected); Parainfluenza 4, PCR Not Detected (NotDetected); Respiratory Syncytial Virus Not Detected (NotDetected); Rhinovirus/Enterovirus Not Detected (NotDetected)
[2024-04-17] MEDS: HEPARIN SODIUM 5,000 UNIT/ML VIAL 5000 UNIT SUBCUT (01:35)
[2024-04-17 02:47] LABS: Coronavirus 19, PCR Detected (NotDetected)
[2024-04-17 04:00] VITALS: BP 171/67; PULSE 62; RESP 14; TEMP 36.7; O2SAT 97; BMI 28.4
[2024-04-17 06:10] LABS: HCV Ab Non Reactive (Non Reactive)
[2024-04-17 06:14] LABS: POC Glucose,Bedside 107 (70-110)
[2024-04-17 07:20] LABS: Basophils % 0.2 % (0.1-2.0); Eosinophils # 0.3 K/mm3 (0.0-0.4); Eosinophils % 4.5 % (0.1-12.0); Hematocrit 31.8 % (37.0-47.0); Hemoglobin 10.5 g/dL (12.2-16.2); Lymphocytes # 1.1 K/mm3 (0.7-4.5); Lymphocytes % 16.7 % (10-50); Mean Corpuscular HGB Conc 33.1 g/dL (31.8-35.4); Mean Corpuscular Hemoglobin 29.8 pg (27.0-31.2); Mean Platelet Volume 9.5 fl (7.4-10.4); Monocytes # 0.3 K/mm3 (0.1-1.0); Monocytes % 4.7 % (1.7-9.3); Neutrophils # 4.7 K/mm3 (1.8-7.8); Neutrophils % 73.9 % (37.0-80.0); Platelet Count 137 K/mm3 (142-424); Red Blood Count 3.54 M/mm3 (4.20-5.40); Red Cell Distribution Width 13.7 % (11.5-17.5); White Blood Count 6.4 K/mm3 (4.8-10.8)
[2024-04-17 07:24] LABS: Chloride 116 mmol/L (98-107); Potassium 4.1 mmoL/L (3.5-5.1); Sodium 137 mmol/L (136-145)
[2024-04-17 07:27] LABS: Alanine Aminotransferase 18 U/L (12-78); Alkaline Phosphatase 80 U/L (38-126); Anion Gap 6.1 mEq/L (5-15); Aspartate Amino Transferase 31 U/L (14-36); Bilirubin,Total 0.4 mg/dl (0.2-1.3); Blood Urea Nitrogen 35 mg/dl (7-17); Calcium 8.9 mg/dl (8.4-10.2); Carbon Dioxide 19 mmol/L (22.0-30.0); Creatinine Clearance Estimated 20 mL/min (50-200); Estimated Glomerular Filt Rate 20 ml/min (>60); GFR (African American) 24 ML/MIN (>60); Globulin 3.1 g/dL (1.3-3.2); Glucose 103 mg/dl (74-100); Total Protein,Serum 6.1 g/dl (6.3-8.2)
[2024-04-17 07:28] LABS: Magnesium 1.8 mg/dl (1.6-2.3)
[2024-04-17 08:00] VITALS: BP 155/69; PULSE 72; RESP 17; TEMP 36.7; O2SAT 94
--- NOTE | 2024-04-17 09:04 | HMH.PHAINT1 ---
Pharmacy Intervention Comments: home medication list verified using list from outpatient pharmacy and pt interview
--- NOTE | 2024-04-17 10:17 | HMH.PTEV ---
Physical Therapy Evaluation Rehab PT IP Evaluation Start: 04/17/24 00:08 Freq: ONCE Status: Active Protocol: Document 04/17/24 10:16 LEYDI (Rec: 04/17/24 10:17 LEYDI [id number]) Subjective/History History History Per H&P: 78-year-old patient with past medical history of recurrent diarrhea, renal insufficiency, seizures, TIA x 2,, hyperlipidemia, diabetes, hypertension, CAD, daily smoker, carotid artery disease . Patient presents with weakness, acute on chronic diarrhea, and malaise x 24 hours. Patient suffered from loose stools, and weakness today. Patient reportedly fell from chair to floor today and was found by . Patient reportedly covered in stool per 's report. I noted smelly fecal odor when admitting patient today. The odor smelled extremely suspicious for C. difficile. Patient reports history of chronic diarrhea for several years . States her last diagnosis of C. difficile was 3 to 4 years ago. Denies dysuria, frequency or urinary urgency issues. However, patient's UA extremely suspicious for UTI. UA with +2 LE, WBC TNTC, positive nitrates. Denies fevers, chest pain, abdominal pain, known sick contacts, or recent travel. Subjective Subjective Lives with her in a single-story home with 2 JIMENEZ. Usually IND without use of AD. can assist as needed. Pt still driving. Pt reports she was IND with mobility prior to admission without use of AD. New diagnosis of cancer in past 12 No months? Rehab PT IP Eval Objective Appearance Patient Behavior Appropriate,Cooperative Patient Orientation Person,Situation Difficulty following instructions none Speech Pattern Clear Ambulation Patient Able to Ambulate Yes Ambulation Observation IP General Gait Pattern Observation Narrow Based Gait Ambulation Distance (feet) 30 Ambulation Assistive Device None Ambulation Ability Supervision/Stand by Balance Ability to Arise Able, uses arms to help Sitting Balance Steady, safe Standing Balance Steady, wide stance Dynamic Sitting Balance Ability Good Dynamic Standing Balance Ability Good Transfers Bed Transfer Ability Independent Sit to Stand Bed Transfer Ability Supervision/Stand by Sit to Stand Chair Transfer Ability Supervision/Stand by Rehab PT IP prob,goals,plan Problems Date of Evaluation: 04/17/24 Rehab Potential Rehab Potential Innapropriate for Skilled Therapy Discharge Plan PT Discharge Plan Pt not appropriate for skilled inpatient physical therapy d/ t mobility being at baseline/ IND. Recommending HH services to address general strengthening. Eval Complexity Eval Charge Codes 65950 - Moderate Complexity PHYSICIAN CERTIFICATION: I certify the specified therapy services for Flor M Dina are required, authorized, and reviewed every 30 days.
--- NOTE | 2024-04-17 10:36 | SW/DCPLANNER ---
I spoke w/ this patient regarding plans once medically stable for discharge. PT/OT evaluated patient and recommended home health services at time of discharge. Patient is agreeable to home health services and does not have an agency preference. Patient information/order will be faxed to [facility] once ready for discharge. Discharge date is unknown at this time. CM will continue to follow up.
[2024-04-17 10:54] LABS: POC Glucose,Bedside 143 (70-110)
--- NOTE | 2024-04-17 10:59 | HMH.OTEV ---
OT Inpatient Evaluation Rehab OT IP Evaluation Start: 04/17/24 00:08 Freq: ONCE Status: Active Protocol: Document 04/17/24 10:56 [facility] (Rec: 04/17/24 10:58 [facility] [id number]) Rehab OT IP Assessment Subjective History Per H&P: 78-year-old patient with past medical history of recurrent diarrhea, renal insufficiency, seizures, TIA x 2,, hyperlipidemia, diabetes, hypertension, CAD, daily smoker, carotid artery disease . Patient presents with weakness, acute on chronic diarrhea, and malaise x 24 hours. Patient suffered from loose stools, and weakness today. Patient reportedly fell from chair to floor today and was found by . Patient reportedly covered in stool per 's report. I noted smelly fecal odor when admitting patient today. The odor smelled extremely suspicious for C. difficile. Patient reports history of chronic diarrhea for several years . States her last diagnosis of C. difficile was 3 to 4 years ago. Denies dysuria, frequency or urinary urgency issues. However, patient's UA extremely suspicious for UTI. UA with +2 LE, WBC TNTC, positive nitrates. Denies fevers, chest pain, abdominal pain, known sick contacts, or recent travel. Subjective Prior to being in the hospital , pt lived at home with her . Pt claims normally she is independent with all ADLs and IADLs. Pt's will be home to assist as needed. Pt does not require any type of AE during functional transfers. Pt is also still driving. Objective Patient Orientation Person,Place,Birthday Right Upper Extremity Gross ROM WFL Left Upper Extremity Gross ROM WFL Bed Mobility bed mobility-scooting,bed mobility - supine/sit Assist Level Supervision/Stand by Transfer Training Sit/Stand Transfer Assist Level Supervision/Stand by Lower Body Dressing Ability Standby Assistance Performing Toilet Hygiene Ability Standby Assistance Overall Commode/Toilet Transfer Ability Standby Assistance Commode/Toilet Transfer Technique Sit to/from Ambulatory Rehab OT IP prob,goals,plan Problems Date of Evaluation: 04/17/24 Rehab Potential Rehab Potential Innapropriate for Skilled Therapy Discharge Plan OT Discharge Plan Pt appears to be at baseline with all ADLs and functional transfers at this time. Pt can return home with her husbands assistance as needed. Therapist does recommend HH OT evaluation to evaluate environmental safety upon returning home. Eval Complexity Eval Charge Codes 31130 - Low Complexity PHYSICIAN CERTIFICATION: I certify the specified therapy services for Flor Clare Talbot are required, authorized, and reviewed every 30 days.
[2024-04-17 11:33] LABS: HIV Combo NEGATIVE (Negative)
[2024-04-17 12:18] LABS: Adenovirus F 40/41, stool Not Detected (NotDetected); Astrovirus Not Detected (NotDetected); Campylobacter Not Detected (NotDetected); Clostridium Difficile A/B, PCR Not Detected (NotDetected); Cryptosporidium Not Detected (NotDetected); Cyclospora Cayetanesis Not Detected (NotDetected); Entamoeba histolytica Not Detected (NotDetected); Enteroaggregative E coli Not Detected (NotDetected); Enteropathogenic E coli Not Detected (NotDetected); Enterotoxigenic E coli Not Detected (NotDetected); Giardia lamblia Not Detected (NotDetected); Norovirus Not Detected (NotDetected); Plesimonas Shigalloides, PCR Not Detected (NotDetected); Rotavirus A Not Detected (NotDetected); Salmonella, PCR Not Detected (NotDetected); Sapovirus Not Detected (NotDetected); Shiga-like toxin E coli Not Detected (NotDetected); Shigella Enterovasive E coli Not Detected (NotDetected); Vibrio Cholerae Not Detected (NotDetected); Vibrio, PCR Not Detected (NotDetected); Yersinia Entercolitica, PCR Not Detected (NotDetected)
[2024-04-17 12:32] LABS: Adenovirus F 40/41, stool Not Detected (NotDetected); Astrovirus Not Detected (NotDetected); Campylobacter Not Detected (NotDetected); Clostridium Difficile A/B, PCR Not Detected (NotDetected); Cryptosporidium Not Detected (NotDetected); Cyclospora Cayetanesis Not Detected (NotDetected); Entamoeba histolytica Not Detected (NotDetected); Enteroaggregative E coli Not Detected (NotDetected); Enteropathogenic E coli Not Detected (NotDetected); Enterotoxigenic E coli Not Detected (NotDetected); Giardia lamblia Not Detected (NotDetected); Norovirus Not Detected (NotDetected); Plesimonas Shigalloides, PCR Not Detected (NotDetected); Rotavirus A Not Detected (NotDetected); Salmonella, PCR Not Detected (NotDetected); Sapovirus Not Detected (NotDetected); Shiga-like toxin E coli Not Detected (NotDetected); Shigella Enterovasive E coli Not Detected (NotDetected); Vibrio Cholerae Not Detected (NotDetected); Vibrio, PCR Not Detected (NotDetected); Yersinia Entercolitica, PCR Not Detected (NotDetected)
--- NOTE | 2024-04-17 15:42 | P.DS_ITS ---
General Admission date:: 04/16/24 Discharge date: 04/17/24 HPI HPI HPI: 78-year-old patient with past medical history of recurrent diarrhea, renal insufficiency, seizures, TIA x 2,, hyperlipidemia, diabetes, hypertension, CAD, daily smoker, carotid artery disease. Patient presents with weakness, acute on chronic diarrhea, and malaise x 24 hours. Patient suffered from loose stools, and weakness today. Patient reportedly fell from chair to floor today and was found by . Patient reportedly covered in stool per 's report. I noted smelly fecal odor when admitting patient today. The odor smelled extremely suspicious for C. difficile. Patient reports history of chronic diarrhea for several years . States her last diagnosis of C. difficile was 3 to 4 years ago. Denies dysuria, frequency or urinary urgency issues. However, patient's UA extremely suspicious for UTI. UA with +2 LE, WBC TNTC, positive nitrates. Denies fevers, chest pain, abdominal pain, known sick contacts, or recent travel. Patient also reports history of renal insufficiency BUN 33, CR 2.6, NA 132, CL 109. Patient states that she seen foreign language interpreter several years ago, but has not seen nephrology since. Reports no history of dialysis. Also reports normal urinary patterns, and states her urine is generally light yellow. States she suffers from chronic chills at baseline. Denies history of CHF, MIs, or CVA. CT head, cervical, thoracic, lumbar, pelvis films done in emergency room with arthritic changes and without acute pathology. Hospital Course Hospital Course Hospital Course: 78-year-old patient with past medical history of recurrent diarrhea, renal insufficiency, seizures, TIA x 2,, hyperlipidemia, diabetes, hypertension, CAD, daily smoker, carotid artery disease. Patient presents with weakness, acute on chronic diarrhea, and malaise x 24 hours. UA with +2 LE, WBC TNTC, positive nitrates, BUN 33, CR 2.6, NA 132, CL 109. CT head, cervical, thoracic, lumbar, pelvis films done in emergency room with arthritic changes and without acute pathology. Patient able to give stool sample. Negative for pathogens. Evaluated by therapy. Stable to discharge home with home health. Given clinical stability, will discharge with home health. Needs further management as an outpatient. Problems addressed as follows: Adult failure to thrive secondary to UTI: ? UA as noted above in labs/imaging section with strong signs of UTI. Started on Rocephin in the ER. Transition to cefdinir to complete empiric course as an outpatient. Urine culture still pending at discharge. CATALINA superimposed on CKD: ? After review of patient's chart, BUN of 35 and creatinine of 2.4 appears to be at patient's baseline. Tolerated IV fluids. Tolerating p.o. fluids on day of discharge. Does not appear dehydrated clinically. Recurrent diarrhea: COVID, no respiratory symptoms. ? Patient's diarrhea smells odiferous and like C. difficile. Had C. difficile approximately 3 years ago. Stool panel obtained. Negative for C. difficile. Negative for all analytes. Given her positive COVID status, diarrhea likely secondary to viral infection. Anticipate improvement as COVID infection clears. No indication for further treatment at this time. -Stable on room air. No fevers. Daily smoker: 21 mg nicotine patch daily as needed nicotine cravings Diabetes: Glipizide 5 mg p.o. daily, sign scale insulin, ACHS Accu-Cheks, diabetic diet. Hyperlipidemia: Atorvastatin Mood disorder: Sertraline 100 mg p.o. daily Hypertension: hold lisinopril secondary to renal insufficiency. Hydralazine 10 mg IV every 6 as needed SBP over 160 Total time spent on discharge 32 minutes in counseling, documentation, chart review, and direct care with patient. Exam Data for Last 24 hours Vital signs and Labs for Last 24 Hours: Temp Pulse Resp BP Pulse Ox O2 Del Method 98.1 F 72 17 155/69 H 94 L Room Air 04/17/24 08:00 04/17/24 08:00 04/17/24 08:00 04/17/24 08:00 04/17/24 08:00 04/17/24 14:46 Laboratory Results - last 24 hr 04/16/24 16:30: WBC 6.1, RBC 3.59 L, Hgb 10.9 L, Hct 32.7 L, MCV 91.0, MCH 30.2, MCHC 33.2, RDW 13.6, Plt Count 143, MPV 9.9, Neut % (Auto) 82.0 H, Lymph % (Auto) 12.9, [place] % (Auto) 4.1, Eos % (Auto) 0.6, Baso % (Auto) 0.4, Neut # (Auto) 5.0, Lymph # (Auto) 0.8, [place] # (Auto) 0.3, Eos # (Auto) 0.0, Baso # (Auto) 0.0, Sodium 132 L, Potassium 4.4, Chloride 109 H, Carbon Dioxide 21 L, Anion Gap 6.4, BUN 33 H, Creatinine 2.60 H, Estimated Creat Clear 19, Estimated GFR 18 L*, Est GFR ( Amer) 22 L, Glucose 135 H, Calcium 9.7, Magnesium 1.9, Total Bilirubin 0.7, AST 32, ALT 21, Alkaline Phosphatase 87, Total Protein 7.0, Albumin 3.7, Globulin 3.3 H, Albumin/Globulin Ratio 1.1, Hepatitis C Antibody Non reactive, HIV Ag/Ab Combo Qual Negative 04/16/24 18:49: Urine Color Yellow, Urine Appearance Clear, Urine pH 7.5, Ur Specific [place] 1.015, Urine Protein 1+ A, Urine Glucose (UA) Negative, Urine Ketones Negative, Urine Blood Trace-i, Urine Nitrate Positive A, Urine Bilirubin Negative, Urine Urobilinogen 0.2, Ur Leukocyte Esterase 2+ A, Urine RBC Occasional, Urine WBC Tntc, Ur Squamous Epith Cells 5-10, Urine Bacteria 3+ 04/17/24 01:11: Chlamy pneumoniae PCR Not detected, Adenovirus (PCR) Not detected, B. pertussis DNA (PCR) Not detected, Coronavirus OC43 (PCR) Not detected, Coronavirus HKU1 (PCR) Not detected, Coronavirus 229E (PCR) Not detected, SARS-CoV-2 (PCR) Detected A, Coronavirus NL63 (PCR) Not detected, Human Metapneumovir PCR Not detected, Influenza A (H1) PCR Not detected, Influ A (H1N1/09) PCR Not detected, Influenza A (H3) PCR Not detected, Influenza Type A (PCR) Not detected, Influenza Type B (PCR) Not detected, M. pneumoniae (PCR) Not detected, Parainfluenza 1 (PCR) Not detected, Parainfluenza 2 (PCR) Not detected, Parainfluenza 3 (PCR) Not detected, Parainfluenza 4 (PCR) Not detected, RSV (PCR) Not detected, Entero/Rhino (PCR) Not detected 04/17/24 06:02: POC Glucose 107 04/17/24 06:27: WBC 6.4, RBC 3.54 L, Hgb 10.5 L, Hct 31.8 L, MCV 90.0, MCH 29.8, MCHC 33.1, RDW 13.7, Plt Count 137 L, MPV 9.5, Neut % (Auto) 73.9, Lymph % (Auto) 16.7, [place] % (Auto) 4.7, Eos % (Auto) 4.5, Baso % (Auto) 0.2, Neut # (Auto) 4.7, Lymph # (Auto) 1.1, [place] # (Auto) 0.3, Eos # (Auto) 0.3, Baso # (Auto) 0.0, Sodium 137, Potassium 4.1, Chloride 116 H, Carbon Dioxide 19 L, Anion Gap 6.1, BUN 35 H, Creatinine 2.40 H, Estimated Creat Clear 20, Estimated GFR 20 L, Est GFR ( Amer) 24 L, Glucose 103 H D, Calcium 8.9, Magnesium 1.8, Total Bilirubin 0.4, AST 31, ALT 18, Alkaline Phosphatase 80, Total Protein 6.1 L, Albumin 3.0 L D, Globulin 3.1, Albumin/Globulin Ratio 1.0 L 04/17/24 10:47: POC Glucose 143 H 04/17/24 12:20: Stl Aeromonas (PCR) Not detected, Stl C. cayetanensis PCR Not detected, Stool Rotavirus (PCR) Not detected, Stl Adenov F 40/41 PCR Not detected, Stool Astrovirus (PCR) Not detected, Stool Campylobacter PCR Not detected, Stl C.difficile Tox PCR Not detected, Stool Cryptosporidium PCR Not detected, Stl E.coli Shiga Tox PCR Not detected, Stool E coli O157 PCR Not detected, Stl Enterotoxigenic E PCR Not detected, Stool EPEC (PCR) Not detected, Stool EAEC (PCR) Not detected, Stl E. histolytica PCR Not detected, Stool Giardia Lamblia PCR Not detected, Stool Salmonella PCR Not detected, Stool Sapovirus (PCR) Not detected, Stl P. shigelloides PCR Not detected, Stl Shigella/EIEC PCR Not detected, St Y.enterocolitica PCR Not detected, Stool Vibrio (PCR) Not detected, Stl Vibrio cholerae PCR Not detected, Stl Norovirus GI/GII PCR Not detected I & O for Last 24 hours: Intake & Output 04/14/24 04/15/24 04/16/24 04/17/24 23:59 23:59 23:59 23:59 Intake Total 1060 / 1060 Output Total 0 / 0 Balance 1060 / 1060 Weight 65.771 kg 65.771 kg Constitutional Constitutional: no acute distress, average body habitus, chronically ill appearing and cooperative *Routine HEENT Exam Head: Present normocephalic Eye: Present EOMI and PERRL ENT: Present mucous membranes moist *Routine Neck Exam Neck: Present supple; Absent lymphadenopathy *Routine Respiratory Exam Respiratory: Present CTA bilaterally; Absent rhonchi, wheezes or crackles *Routine Cardiovascular Exam Cardiovascular: Present RRR *Routine Abdominal Exam Abdominal: Present soft and normoactive bowel sounds; Absent tenderness *Routine Rectal Exam Patient deferred: visual exam *Routine Exam Patient deferred: external exam *Routine Extremities Exam Extremities: Absent cyanosis, clubbing or edema *Routine Skin Exam Skin: Present intact and warm; Absent rash *Routine Neurological Exam Neurological: Present alert, oriented X3 and moving all extremities; Absent altered mental status Results Data Completed and Pending Labs on day of discharge: Labs from last 24 hours 04/17/24 04/17/24 04/17/24 12:20 10:47 06:27 WBC 6.4 RBC 3.54 L Hgb 10.5 L Hct 31.8 L MCV 90.0 MCH 29.8 MCHC 33.1 RDW 13.7 Plt Count 137 L MPV 9.5 Neut % (Auto) 73.9 Lymph % (Auto) 16.7 [place] % (Auto) 4.7 Eos % (Auto) 4.5 Baso % (Auto) 0.2 Neut # (Auto) 4.7 Lymph # (Auto) 1.1 [place] # (Auto) 0.3 Eos # (Auto) 0.3 Baso # (Auto) 0.0 Sodium 137 Potassium 4.1 Chloride 116 H Carbon Dioxide 19 L Anion Gap 6.1 BUN 35 H Creatinine 2.40 H Estimated Creat Clear 20 Estimated GFR 20 L Est GFR ( Amer) 24 L Glucose 103 H D POC Glucose 143 H Calcium 8.9 Magnesium 1.8 Total Bilirubin 0.4 AST 31 ALT 18 Alkaline Phosphatase 80 Total Protein 6.1 L Albumin 3.0 L D Globulin 3.1 Albumin/Globulin Ratio 1.0 L Urine Color Urine Appearance Urine pH Ur Specific [place] Urine Protein Urine Glucose (UA) Urine Ketones Urine Blood Urine Nitrate Urine Bilirubin Urine Urobilinogen Ur Leukocyte Esterase Urine RBC Urine WBC Ur Squamous Epith Cells Urine Bacteria Stl Aeromonas (PCR) Not detected Stl C. cayetanensis PCR Not detected Stool Rotavirus (PCR) Not detected Stl Adenov F 40/41 PCR Not detected Stool Astrovirus (PCR) Not detected Stool Campylobacter PCR Not detected Stl C.difficile Tox PCR Not detected Stool Cryptosporidium PCR Not detected Stl E.coli Shiga Tox PCR Not detected Stool E coli O157 PCR Not detected Stl Enterotoxigenic E PCR Not detected Stool EPEC (PCR) Not detected Stool EAEC (PCR) Not detected Stl E. histolytica PCR Not detected Stool Giardia Lamblia PCR Not detected Stool Salmonella PCR Not detected Stool Sapovirus (PCR) Not detected Stl P. shigelloides PCR Not detected Stl Shigella/EIEC PCR Not detected St Y.enterocolitica PCR Not detected Stool Vibrio (PCR) Not detected Stl Vibrio cholerae PCR Not detected Stl Norovirus GI/GII PCR Not detected Chlamy pneumoniae PCR Adenovirus (PCR) B. pertussis DNA (PCR) Coronavirus OC43 (PCR) Coronavirus HKU1 (PCR) Coronavirus 229E (PCR) SARS-CoV-2 (PCR) Coronavirus NL63 (PCR) Hepatitis C Antibody HIV Ag/Ab Combo Qual Human Metapneumovir PCR Influenza A (H1) PCR Influ A (H1N1/09) PCR Influenza A (H3) PCR Influenza Type A (PCR) Influenza Type B (PCR) M. pneumoniae (PCR) Parainfluenza 1 (PCR) Parainfluenza 2 (PCR) Parainfluenza 3 (PCR) Parainfluenza 4 (PCR) RSV (PCR) Entero/Rhino (PCR) 04/17/24 04/17/24 04/16/24 06:02 01:11 18:49 WBC RBC Hgb Hct MCV MCH MCHC RDW Plt Count MPV Neut % (Auto) Lymph % (Auto) [place] % (Auto) Eos % (Auto) Baso % (Auto) Neut # (Auto) Lymph # (Auto) [place] # (Auto) Eos # (Auto) Baso # (Auto) Sodium Potassium Chloride Carbon Dioxide Anion Gap BUN Creatinine Estimated Creat Clear Estimated GFR Est GFR ( Amer) Glucose POC Glucose 107 Calcium Magnesium Total Bilirubin AST ALT Alkaline Phosphatase Total Protein Albumin Globulin Albumin/Globulin Ratio Urine Color Yellow Urine Appearance Clear Urine pH 7.5 Ur Specific [place] 1.015 Urine Protein 1+ A Urine Glucose (UA) Negative Urine Ketones Negative Urine Blood Trace-i Urine Nitrate Positive A Urine Bilirubin Negative Urine Urobilinogen 0.2 Ur Leukocyte Esterase 2+ A Urine RBC Occasional Urine WBC Tntc Ur Squamous Epith Cells 5-10 Urine Bacteria 3+ Stl Aeromonas (PCR) Stl C. cayetanensis PCR Stool Rotavirus (PCR) Stl Adenov F PCR Stool Astrovirus (PCR) Stool Campylobacter PCR Stl C.difficile Tox PCR Stool Cryptosporidium PCR Stl E.coli Shiga Tox PCR Stool E coli O157 PCR Stl Enterotoxigenic E PCR Stool EPEC (PCR) Stool EAEC (PCR) Stl E. histolytica PCR Stool Giardia Lamblia PCR Stool Salmonella PCR Stool Sapovirus (PCR) Stl P. shigelloides PCR Stl Shigella/EIEC PCR St Y.enterocolitica PCR Stool Vibrio (PCR) Stl Vibrio cholerae PCR Stl Norovirus GI/GII PCR Chlamy pneumoniae PCR Not detected Adenovirus (PCR) Not detected B. pertussis DNA (PCR) Not detected Coronavirus OC43 (PCR) Not detected Coronavirus HKU1 (PCR) Not detected Coronavirus 229E (PCR) Not detected SARS-CoV-2 (PCR) Detected A Coronavirus NL63 (PCR) Not detected Hepatitis C Antibody HIV Ag/Ab Combo Qual Human Metapneumovir PCR Not detected Influenza A (H1) PCR Not detected Influ A (H1N1/09) PCR Not detected Influenza A (H3) PCR Not detected Influenza Type A (PCR) Not detected Influenza Type B (PCR) Not detected M. pneumoniae (PCR) Not detected Parainfluenza 1 (PCR) Not detected Parainfluenza 2 (PCR) Not detected Parainfluenza 3 (PCR) Not detected Parainfluenza 4 (PCR) Not detected RSV (PCR) Not detected Entero/Rhino (PCR) Not detected 04/16/24 16:30 WBC 6.1 RBC 3.59 L Hgb 10.9 L Hct 32.7 L MCV 91.0 MCH 30.2 MCHC 33.2 RDW 13.6 Plt Count 143 MPV 9.9 Neut % (Auto) 82.0 H Lymph % (Auto) 12.9 [place] % (Auto) 4.1 Eos % (Auto) 0.6 Baso % (Auto) 0.4 Neut # (Auto) 5.0 Lymph # (Auto) 0.8 [place] # (Auto) 0.3 Eos # (Auto) 0.0 Baso # (Auto) 0.0 Sodium 132 L Potassium 4.4 Chloride 109 H Carbon Dioxide 21 L Anion Gap 6.4 BUN 33 H Creatinine 2.60 H Estimated Creat Clear 19 Estimated GFR 18 L* Est GFR ( Amer) 22 L Glucose 135 H POC Glucose Calcium 9.7 Magnesium 1.9 Total Bilirubin 0.7 AST 32 ALT 21 Alkaline Phosphatase 87 Total Protein 7.0 Albumin 3.7 Globulin 3.3 H Albumin/Globulin Ratio 1.1 Urine Color Urine Appearance Urine pH Ur Specific [place] Urine Protein Urine Glucose (UA) Urine Ketones Urine Blood Urine Nitrate Urine Bilirubin Urine Urobilinogen Ur Leukocyte Esterase Urine RBC Urine WBC Ur Squamous Epith Cells Urine Bacteria Stl Aeromonas (PCR) Stl C. cayetanensis PCR Stool Rotavirus (PCR) Stl Adenov F 40/41 PCR Stool Astrovirus (PCR) Stool Campylobacter PCR Stl C.difficile Tox PCR Stool Cryptosporidium PCR Stl E.coli Shiga Tox PCR Stool E coli O157 PCR Stl Enterotoxigenic E PCR Stool EPEC (PCR) Stool EAEC (PCR) Stl E. histolytica PCR Stool Giardia Lamblia PCR Stool Salmonella PCR Stool Sapovirus (PCR) Stl P. shigelloides PCR Stl Shigella/EIEC PCR St Y.enterocolitica PCR Stool Vibrio (PCR) Stl Vibrio cholerae PCR Stl Norovirus GI/GII PCR Chlamy pneumoniae PCR Adenovirus (PCR) B. pertussis DNA (PCR) Coronavirus OC43 (PCR) Coronavirus HKU1 (PCR) Coronavirus 229E (PCR) SARS-CoV-2 (PCR) Coronavirus NL63 (PCR) Hepatitis C Antibody Non reactive HIV Ag/Ab Combo Qual Negative Human Metapneumovir PCR Influenza A (H1) PCR Influ A (H1N1/09) PCR Influenza A (H3) PCR Influenza Type A (PCR) Influenza Type B (PCR) M. pneumoniae (PCR) Parainfluenza 1 (PCR) Parainfluenza 2 (PCR) Parainfluenza 3 (PCR) Parainfluenza 4 (PCR) RSV (PCR) Entero/Rhino (PCR) DS: Diagnosis Discharge Diagnosis (1) Acute UTI: Status: Acute Code(s): N39.0 - Urinary tract infection, site not specified (2) Diarrhea: Status: Acute Code(s): R19.7 - Diarrhea, unspecified Qualifiers: Diarrhea type: unspecified type Qualified Code(s): R19.7 - Diarrhea, unspecified (3) Declining functional status: Status: Acute Code(s): R53.81 - Other malaise (4) Acute kidney injury superimposed on chronic kidney disease: Status: Acute Code(s): N17.9 - Acute kidney failure, unspecified; N18.9 - Chronic kidney disease, unspecified (5) Diabetes mellitus type 2, controlled: Status: Chronic Code(s): E11.9 - Type 2 diabetes mellitus without complications Qualifiers: Diabetes mellitus complication status: without complication Diabetes mellitus half-way insulin use: without half-way use Qualified Code(s): E11.9 - Type 2 diabetes mellitus without complications (6) CAD (coronary artery disease): Status: Chronic Code(s): I25.10 - Atherosclerotic heart disease of [place] coronary artery without angina pectoris Qualifiers: Associated angina: without angina Coronary Disease-Associated Artery/Lesion type: [place] artery [place] vs. transplanted heart: [place] heart Qualified Code(s): I25.10 - Atherosclerotic heart disease of [place] coronary artery without angina pectoris (7) HTN (hypertension): Status: Chronic Code(s): I10 - Essential (primary) hypertension Qualifiers: Hypertension type: essential hypertension Qualified Code(s): I10 - Esse ntial (primary) hypertension (8) Tobacco dependence syndrome: Status: Chronic Code(s): F17.200 - Nicotine dependence, unspecified, uncomplicated (9) Carotid artery disease: Status: Chronic Code(s): I77.9 - Disorder of arteries and arterioles, unspecified Qualifiers: Carotid artery disease type: stenosis Laterality: bilateral Qualified Code(s): I65.23 - Occlusion and stenosis of bilateral carotid arteries (10) HLD (hyperlipidemia): Status: Chronic Code(s): E78.5 - Hyperlipidemia, unspecified Qualifiers: Hyperlipidemia type: mixed hyperlipidemia Qualified Code(s): E78.2 - Mixed hyperlipidemia Meds Home Medications and Allergies Home Medications ?Medication ?Instructions ?Recorded ?Confirmed ?Type atorvastatin 40 mg tablet 40 mg PO HS 05/23/17 04/17/24 History vqznszjcyhoa-Tl-nhvc-minerals 1 tab PO DAILY Diet supplement 04/18/18 04/16/24 History (Multiple Vitamin, Womens tablet) sertraline 100 mg tablet 100 mg PO DAILY 06/20/18 04/17/24 History glipizide 5 mg tablet 5 mg PO DAILY 09/19/18 04/17/24 History lisinopril 10 mg tablet 10 mg PO DAILY 11/19/20 04/16/24 History cefdinir 300 mg capsule 300 mg PO BID 5 days #10 caps 04/17/24 Rx tramadol 50 mg tablet 50 mg PO BIDP PRN Pain 04/17/24 04/17/24 History trazodone 100 mg tablet 200 mg PO HSP PRN Sleep 04/17/24 04/17/24 History New Prescriptions to Start Prescriptions: Gen Gallegos Allergies Allergy/AdvReac Type Severity Reaction Status Date / Time latex (LATEX) Allergy Intermediate I-ITCHING Verified 11/29/22 09:57 Penicillins (PENICILLINS) Allergy Mild I-RASH Verified 11/29/22 09:57 Sulfa (Sulfonamide Allergy Unknown I-RASH Verified 11/29/22 09:57 Antibiotics) (SULFA (SULFONAMIDE ANTIBIOTICS)) Tetanus Vaccines and Toxoid Allergy Unknown Verified 11/29/22 09:57 (TETANUS VACCINES & TOXOID) Discharge Plan Disposition Patient Disposition: Home Health Service Condition: Fair Discharge Order Discharge Orders: Discharge Order (Routine); Ordered 04/17/24 Ordered By: Gen Gomez Follow up Plan Follow up with: Orly Liang MD [Primary Care Provider] - Enter time for follow up (Please make follow up appointment for about a week from discharge. ) Prescriptions/Medication Reconciliation: New cefdinir 300 mg capsule 300 mg PO BID 5 Days Qty: 10 0RF Continued Multiple Vitamin, Womens tablet 1 tab PO DAILY atorvastatin 40 mg tablet 40 mg PO HS sertraline 100 mg tablet 100 mg PO DAILY glipizide 5 mg tablet 5 mg PO DAILY lisinopril 10 MG tablet 10 mg PO DAILY tramadol 50 mg tablet 50 mg PO BIDP PRN (Reason: Pain) Patient Comments: TAKE 1 TABLET BY MOUTH TWICE DAILY trazodone 100 mg tablet 200 mg PO HSP PRN (Reason: Sleep) Patient Comments: TAKE 2 TABLETS BY MOUTH ONCE DAILY AT BEDTIME NEEDED FOR 90 DAYS Problem Reconciliation Problems Reviewed?: Yes Patient Discharge Instructions ACTIVITY: Continue current activity DIET: continue same diet Patient Instructions: Diarrhea, Acute Kidney Injury, DI for Urinary Tract Infection (UTI) Print Language: [place] Providers Primary Care Provider: Orly Liang Admit Provider: Doug Haro Attending Provider: Doug Haro
--- NOTE | 2024-04-17 16:06 | SW/DCPLANNER ---
Faxed over homehealth paper work to [facility] and talked to Ely at [facility] and she was able to accept patient. Dylon PRICE Senior Vice President And Chief Information Officer
--- NOTE | 2024-04-19 10:19 | SW/DCPLANNER ---
Spoke with patient on the phone. Patient stated that she is doing well. Patient stated that she was able to get her new medicine picked up. Patient stated that she will call today to schedule her upcoming appointment with her primary care provider. Patient stated that she has no concerns or questions at this time. Dylon Giles
== END 2024-04-17 16:40 | disposition home health service (06) ==
LOC: ER 19:04 → 2ND 20:47
PROVIDERS: Physician Assistant; Admitting Provider Internal Medicine; Emergency Provider Emergency Medicine; PCP Family Medicine; Visit Provider Internal Medicine
DX: N39.0 Urinary tract infection, site not specified (principal); R19.7 Diarrhea, unspecified; U07.1 COVID-19; R53.81 Other malaise; N17.9 Acute kidney failure, unspecified; N18.9 Chronic kidney disease, unspecified; E11.22 Type 2 diabetes mellitus with diabetic chronic kidney disease; I25.10 Atherosclerotic heart disease of native coronary artery without angina pectoris; F17.210 Nicotine dependence, cigarettes, uncomplicated; I65.23 Occlusion and stenosis of bilateral carotid arteries; E78.2 Mixed hyperlipidemia; Z73.89 Other problems related to life management difficulty; Z79.899 Other long term (current) drug therapy; Z79.84 Long term (current) use of oral hypoglycemic drugs; I12.9 Hypertensive chronic kidney disease with stage 1 through stage 4 chronic kidney disease, or unspecified chronic kidney disease; R62.7 Adult failure to thrive; Z68.28 Body mass index [BMI] 28.0-28.9, adult; Z74.1 Need for assistance with personal care; B96.4 Proteus (mirabilis) (morganii) as the cause of diseases classified elsewhere
CPT/HCPCS: 70450; 72125; 72128; 72131; 72192; 80053; 81001; 82962; 83735; 85025; 86803; 87045; 87086; 87088; 87186; 87389; 87506; 87507; 87633; 97162; 97165; 99285; G0378; J0696; J1644; J7030; J7120

== ENCOUNTER 2024-04-23 08:49 | Inpatient (IN) | payer MEDICARE, OTHER, SELFPAY ==
[2024-04-23] VITALS (14 sets, daily range): BP systolic 117–169; BP diastolic 55–84; PULSE 59–87; RESP 12–24; TEMP 36.8–37.1; O2SAT 93–100; BMI 24.9; BMI 24.6
--- NOTE | 2024-04-23 08:53 | CT_ITS ---
FINAL REPORT CLINICAL HISTORY: weak x1w RLE COMPARISON: None FINDINGS: CTA HEAD TECHNIQUE: Thin section axial CT with contrast with 3D MIP reconstruction This study was performed with techniques to keep radiation doses as low as reasonably achievable, (ALARA). Individualized dose reduction techniques using automated exposure control or adjustment of mA and/or kV according to the patient's size were employed. FINDINGS: In the right ICA there is moderate calcified plaque disease without significant stenosis. The left ICA demonstrates reconstitution of small caliber left CCA through collateral vessels. Hypoplastic A1 segment is noted of the left BIANCA. The distal left BIANCA and MCA branches are intact. The basilar artery and posterior circulation are intact. IMPRESSION: Small caliber distal left ICA due to inflow disease. No evidence of central MCA or BIANCA occlusion. 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 Reviewed, Interpreted and Dictated by Catherine Ross MD Transcribed by Anisa Spivey Authenticated and [facility]
--- NOTE | 2024-04-23 08:53 | CT_ITS ---
FINAL REPORT TECHNIQUE: Noncontrast exam This study was performed with techniques to keep radiation doses as low as reasonably achievable, (ALARA). Individualized dose reduction techniques using automated exposure control or adjustment of mA and/or kV according to the patient''s size were employed. CLINICAL HISTORY: weakness COMPARISON: 04/16/2024 FINDINGS: Moderate atrophy and chronic ischemic white matter changes are noted. There are chronic lacunar infarcts in left basal ganglia. There has been interval development of edema in the left frontal parietal vertex suspicious for watershed infarct favored to be subacute or chronic. There is no mass or hemorrhage. Ventricles are normal. Bone windows show no skull fracture or obvious obstructive lesion. IMPRESSION: Hypodensity left frontoparietal vertex new from prior. Suspect edema from subacute watershed infarct. Reviewed, Interpreted and Dictated by Catherine Ross MD Transcribed by Anisa Spivey Authenticated and [facility]
--- NOTE | 2024-04-23 08:53 | CT_ITS ---
FINAL REPORT CLINICAL HISTORY: weak RLE x1w COMPARISON: None FINDINGS: CT NECK ANGIO, WITHOUT AND WITH CONTRAST TECHNIQUE: Thin section axial CT with contrast with multiplanar 3D MIP reconstruction. This study was performed with techniques to keep radiation doses as low as reasonably achievable, (ALARA). Individualized dose reduction techniques using automated exposure control or adjustment of mA and/or kV according to the patient's size were employed. NASCET criteria and technique was utilized during interpretation. FINDINGS: Aortic arch: Advanced plaque disease. Left subclavian occlusion. Mild left common carotid artery stenosis. Right carotid: Moderate calcified plaque disease at the bifurcation. Approximately 40% proximal right ICA stenosis. Left carotid: Proximal cervical CCA is patent. Slow flow within the distal CCA. There is complete occlusion of the entire left ICA. Minimal flow is seen in the left ECA. Vertebrals: Right vertebral artery is dominant. Vertebral arteries are widely patent. 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 Moderate stenosis of the proximal right ICA. Reviewed, Interpreted and Dictated by Catherine Ross MD Transcribed by Anisa Spivey Authenticated and . [facility]
--- NOTE | 2024-04-23 08:54 | ECG_ITS ---
APPROVED REPORT Exam: Resting ECG HR:69 bpm ECG Measurements Heart Rate 69 AXES HI 164 P 61 QRSd 82 QRS 41 QT 412 T 44 QTc 431 Conclusion SINUS RHYTHM NONSPECIFIC ST & T-WAVE ABNORMALITY BORDERLINE ECG No STEMI Electronically signed by : PEDRO VEE, 04/23/2024 16:07:34
--- NOTE | 2024-04-23 08:58 | HMH.EDGENADL ---
Discharge Plan Disposition Patient Disposition: Admitted Condition: Fair Chief Complaint: Weakness Prescriptions Prescriptions: No Action Multiple Vitamin, Womens tablet 1 tab PO DAILY atorvastatin 40 mg tablet 40 mg PO HS sertraline 100 mg tablet 100 mg PO DAILY glipizide 5 mg tablet 5 mg PO DAILY lisinopril 10 MG tablet 10 mg PO DAILY tramadol 50 mg tablet 50 mg PO BIDP PRN (Reason: Pain) Patient Comments: TAKE 1 TABLET BY MOUTH TWICE DAILY trazodone 100 mg tablet 200 mg PO HSP PRN (Reason: Sleep) Patient Comments: TAKE 2 TABLETS BY MOUTH ONCE DAILY AT BEDTIME NEEDED FOR 90 DAYS cefdinir 300 mg capsule 300 mg PO BID 5 Days Qty: 10 0RF Clinical Impressions Clinical Impression: Lung mass, Carotid artery, internal, occlusion Print Language Print Language: [place] Discharge ED Provider: Sandra Franks General Adult HPI General Chief complaint: Weakness Stated complaint: weakness Time Seen by Provider: 04/23/24 08:53 History of Present Illness HPI narrative: 78-year-old female with a history of PAD, hyperlipidemia, type 2 diabetes, hypertension presents to the ER for complaints of weakness. Reportedly patient was diagnosed with COVID 1 week ago. Patient was feeling weak this morning and EMS was called. She does report a history of TIA as well. She is oriented but reports drinking beer daily. Review of records demonstrates patient was evaluated on 04/16/2024 initially for a fall, had diarrhea at that time, records demonstrates she has a history of CKD, UA was concerning for urinary tract infection and patient was admitted for UTI, PT/OT. Stool studies at that time were negative for all analytes. Patient was positive for COVID. Patient reports she has been ongoing diarrhea. She denies chest pain or shortness of breath, no headache or dizziness, no numbness, tingling, and denies localizing weakness, however on exam when identified right lower extremity weakness, she stated this has been ongoing for about 1 week. She is oriented. She denies fevers or chills, she denies abdominal pain, no dysuria, no hematuria. She was discharged on cefdinir on 04/17/2024. Family at bedside is concerned that patient and elderly cannot take care of each other, when she was admitted they were hoping to have resources provided to them for placement or assistance, but she was discharged home for self-care. Related Data Home Medications ?Medication ?Instructions ?Recorded ?Confirmed atorvastatin 40 mg tablet 40 mg PO HS 05/23/17 04/17/24 [id number] 1 tab PO DAILY Diet supplement 04/18/18 04/16/24 (Multiple Vitamin, Womens tablet) sertraline 100 mg tablet 100 mg PO DAILY 06/20/18 04/17/24 glipizide 5 mg tablet 5 mg PO DAILY 09/19/18 04/17/24 lisinopril 10 mg tablet 10 mg PO DAILY 11/19/20 04/16/24 tramadol 50 mg tablet 50 mg PO BIDP PRN Pain 04/17/24 04/17/24 trazodone 100 mg tablet 200 mg PO HSP PRN Sleep 04/17/24 04/17/24 Previous Rx's ?Medication ?Instructions ?Recorded cefdinir 300 mg capsule 300 mg PO BID 5 days #10 caps 04/17/24 Allergies Allergy/AdvReac Type Severity Reaction Status Date / Time latex (LATEX) Allergy Intermediate I-ITCHING Verified 11/29/22 09:57 Penicillins (PENICILLINS) Allergy Mild I-RASH Verified 11/29/22 09:57 Sulfa (Sulfonamide Allergy Unknown I-RASH Verified 11/29/22 09:57 Antibiotics) (SULFA (SULFONAMIDE ANTIBIOTICS)) Tetanus Vaccines and Toxoid Allergy Unknown Verified 11/29/22 09:57 (TETANUS VACCINES & TOXOID) [facility] Disclaimer: The information contained in this section may have been updated after the patient was seen, as this information can be updated by other users. Medical History (Updated 04/23/24 @ 13:07 by Sandra Franks MD) History of TIA (transient ischemic attack) Elbow fracture, right Fracture of wrist TIA (transient ischemic attack) Bilateral carotid bruits PAD (peripheral artery disease) HLD (hyperlipidemia) CAD (coronary artery disease) HTN (hypertension) Carotid artery disease Surgical History (Updated 04/21/24 @ 00:00 by Stephen Tolliver) History of left-sided carotid endarterectomy Social History Smoking Status: Current every day smoker tobacco type: cigarettes packs per day: 1 second hand exposure: Yes alcohol intake: never counseling provided: none substance use type: denies use current occupational status: retired Travel in the last 8 weeks: None household members: spouse housing: house current occupational exposures/hazards: No caffeine: Yes Have you lived/traveled outside US in past 30 days?: No Contact w/someone who lives/traveled outside US past 30 days?: No Exposure to someone with infectious disease in past 14 days?: No Do you have a fever (greater than 100.4 F or 38 C)?: No Have you tested positive for COVID-19: No Exposed to someone with COVID-19 in past 14 days?: No Do you have a sore throat?: No Do you have a cough?: No Do you have any weakness?: No Do you have any diarrhea?: No Are you experiencing any unusual bleeding?: No Do you have any muscle aches/pain?: No Do you have any abdominal pain?: No Are you experiencing loss of taste or smell?: No Other Medical History Have you received the Flu Vaccine for this season: No Have you received the Pneumonia Vaccine: No ROS Obtained: Yes Systems reviewed as appropriate & no additional complaints except as documented ROS per HPI Physical Exam General General appearance: alert and in no apparent distress Head Head exam: atraumatic and normocephalic Eye Eye exam: Present PERRL and EOMI ENT ENT exam: Present mucous membranes moist Neck Neck exam: Present normal inspection and full ROM Chest Chest inspection: Present symmetric chest wall rise Respiratory Respiratory exam: Present normal lung sounds bilaterally; Absent respiratory distress, wheezes or stridor Cardiovascular Cardiovascular exam: Present regular rate and normal rhythm Abdominal Exam Abdominal exam: Present soft; Absent distention, tenderness, guarding or rebound Extremities Exam Extremities exam: Present edema (trace BLE edema); Absent tenderness or calf tenderness Neurological Exam Neurological exam: Present alert, oriented X3 and motor sensory deficit (Decree strength in right lower extremity compared to left, however remainder of neuroexam intact, NIH 1 for RLE weakness) Psychiatric Psychiatric exam: Present normal affect and normal mood Skin Skin exam: Present warm and dry Medical Decision Making Medical Records Medical records reviewed: Yes I reviewed the patient's medical records. Screening: Per USPSTF and CDC recommendations, given the prevalence of disease in our region, it is our hospital?s policy to screen for HIV and viral Hepatitis for all patients aged 18 and over and those with ongoing risk factors. MR Comment: See HPI Dank Inquiry Pt receiving controlled substance: No Vital Signs: 04/23/24 08:50 04/23/24 09:02 04/23/24 09:30 Temperature 98.2 F Temperature Source Oral Pulse Rate 62 59 L Pulse Rate [Left Radial] 65 Respiratory Rate 17 Blood Pressure 155/69 H 146/64 H Blood Pressure [Right Arm] 127/67 Blood Pressure Mean Blood Pressure Mean [Right Arm] 87 Blood Pressure Source [Right Arm] Automatic Cuff Blood Pressure Position [Right Arm] Sitting 02 Sat by Pulse Oximetry 97 94 L 95 Oxygen Delivery Method Room Air Room Air Room Air 04/23/24 10:30 04/23/24 11:00 04/23/24 11:30 Temperature Temperature Source Pulse Rate 64 62 61 Pulse Rate [Left Radial] Respiratory Rate 22 22 21 Blood Pressure 158/55 H 158/60 H 154/59 H Blood Pressure [Right Arm] Blood Pressure Mean Blood Pressure Mean [Right Arm] Blood Pressure Source [Right Arm] Blood Pressure Position [Right Arm] 02 Sat by Pulse Oximetry 93 L 95 94 L Oxygen Delivery Method Room Air Room Air Room Air 04/23/24 12:00 04/23/24 12:30 Temperature Temperature Source Pulse Rate 65 69 Pulse Rate [Left Radial] Respiratory Rate 21 20 Blood Pressure 165/62 H 161/62 H Blood Pressure [Right Arm] Blood Pressure Mean 92 Blood Pressure Mean [Right Arm] Blood Pressure Source [Right Arm] Blood Pressure Position [Right Arm] 02 Sat by Pulse Oximetry 97 96 Oxygen Delivery Method Room Air Lab Data Lab Results 04/23/24 08:57: WBC 7.3, RBC 3.68 L, Hgb 10.8 L, Hct 32.7 L, MCV 88.9, MCH 29.3, MCHC 33.0, RDW 13.2, Plt Count 229, MPV 10.9 H, Neut % (Auto) 69.3, Lymph % (Auto) 21.0, [place] % (Auto) 4.0, Eos % (Auto) 4.9, Baso % (Auto) 0.4, Neut # (Auto) 5.1, Lymph # (Auto) 1.5, [place] # (Auto) 0.3, Eos # (Auto) 0.4, Baso # (Auto) 0.0, PT 10.9, INR 0.97, Sodium 140, Potassium 3.8, Chloride 115 H, Carbon Dioxide 24, Anion Gap 4.8 L, BUN 21 H, Creatinine 2.00 H, Estimated Creat Clear 24, Estimated GFR 24 L, Est GFR ( Amer) 29 L, Glucose 106 H, Calcium 9.8, Total Bilirubin 0.7, AST 30, ALT 19, Alkaline Phosphatase 104, Troponin I 0.02, Total Protein 7.0, Albumin 3.5, Globulin 3.5 H, Albumin/Globulin Ratio 1.0 L, Plasma/Serum Alcohol < 10 04/23/24 10:30: Urine Color Yellow, Urine Appearance Clear, Urine pH 6.0, Ur Specific [place] 1.020, Urine Protein Negative, Urine Glucose (UA) Negative, Urine Ketones Negative, Urine Blood Negative, Urine Nitrate Negative, Urine Bilirubin Negative, Urine Urobilinogen 0.2, Ur Leukocyte Esterase Trace, Urine RBC Occasional, Urine WBC 10-20, Ur Squamous Epith Cells 10-20, Urine Bacteria Trace 04/23/24 12:13: Troponin I 0.01 04/23/24 08:57 04/23/24 08:57 Orders (Tests/Meds): ED MEDICATIONS Discontinued Medications Generic Name Dose Route Start Last Admin Trade Name Freq PRN Reason Stop Dose Admin Lactated Ringer's 1,000 mls @ 999 mls/hr 04/23/24 08:53 04/23/24 09:04 Lactated Ringer's 1000 Ml Bag IV 04/23/24 09:53 999 mls/hr .Q1H1M ONE Administration Iopamidol 80 ml 04/23/24 10:05 04/23/24 10:06 Iopamidol-370 (76%);100ml Bottle IV 04/23/24 10:06 80 ml ONCE ONE Administration Sodium Chloride 10 ml 04/23/24 10:05 04/23/24 10:06 Sodium Chloride 0.9% 10ml Syr (Rad Only) IV 04/23/24 10:06 10 ml ONCE ONE Administration Sodium Chloride 50 ml 04/23/24 10:05 04/23/24 10:06 0.9 % Sodium Chloride 50 Ml Vial IV 04/23/24 10:06 50 ml ONCE ONE Administration ORDERS Category Date Time Status CT angio head Stat Cat Scan 04/23/24 08:[address] angio neck Stat Cat Scan 04/23/24 08:[address] chest wo con Stat Cat Scan 04/23/24 09:[address] head/brain wo con Stat Cat Scan 04/23/24 08:53 Completed CBC w/Auto Diff [Complete Blood Count Auto Diff] Stat Lab 04/23/24 08:57 Completed CMP [Comprehensive Metabolic Panel] Stat Lab 04/23/24 08:57 Completed Diarrhea 6-11 Panel, Cdiff PCR Stat Lab 04/23/24 10:20 Received Ethanol [Ethyl Alcohol] Stat Lab 04/23/24 08:57 Completed PT INR [Prothrombin Time INR] Stat Lab 04/23/24 08:57 Completed Trop I [Troponin I] Stat Lab 04/23/24 08:57 Completed Troponin I Q3H Lab 04/23/24 12:13 Completed Troponin I Q3H Lab 04/23/24 15:00 Ordered Urinalysis and Microscopic Stat Lab 04/23/24 10:30 Completed Urine Culture Stat Micro 04/23/24 10:30 Received Medical Decision Narrative: In summary, this 78-year-old female with comorbidities described in the HPI presents to the emergency department today with weakness, diarrhea. On initial evaluation patient is hemodynamically stable, afebrile, oriented, neuroexam notable for right lower extremity weakness compared to the rest of the exam, NIH 1, patient reports this ongoing for the last week, no concerns from family of acute new deficit, patient unfortunately is sitting in feces which EMS reported. They also reportedly had to start her on nasal cannula because she was only saturating 90% on room air, patient does not wear nasal cannula at baseline, on arrival in the ER she is not requiring nasal cannula, saturating mid to upper 90s on room air. Cardiopulmonary exam is overall benign, abdomen is soft and nontender. Patient has recent UTI reportedly still on cefdinir. Differential diagnosis includes but is not limited to UTI, electrolyte abnormality, kidney dysfunction, I considered CVA, I considered COVID-pneumonia, infectious diarrhea, among others. Based on these concerns, I ordered serum labs, CT imaging, cardiac workup, urine studies, stool studies. ECG personally interpreted demonstrates normal sinus rhythm, rate 69, normal axis, normal WA and QTc, no STEMI. Patient received IV fluids for treatment. Labs personally reviewed demonstrate no leukocytosis, anemia with hemoglobin 10.8 is nonactionable, normal platelets, PT/INR normal, CMP with kidney dysfunction actually slightly improved from recent studies based on my review of labs, patient had initial troponin of 0.02, repeat troponin 0.01, based on the ECG I do not have concerns for acute cardiac pathology, UA is contaminated with squamous cells but is pending culture because of positive WBC and trace bacteria, not treating for UTI at this time. CT head personally interpreted does not demonstrate acute intracranial mass or bleed, see radiology read for final interpretation. CTAs are concerning for left ICA occlusion with watershed territory infarct. This correlates with patient's symptoms on exam. Due to patient's duration of symptoms and timing of onset of the right side deficit, patient does not require acute intervention or stroke center transfer. Additionally, CT chest was reviewed personally and I appreciate a lung mass, see radiology read for full interpretation. Patient continues to be stable on frequent reassessment, case management saw the patient and discussed with family, they are unable to place the patient in a nursing facility but are recommending home health care and going to help coordinate this. 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 Family is comfortable with this plan. I discussed this case at length with Dr. Lester with the hospitalist service. He graciously accepted the patient for admission Critical Care Critical Care Time Critical Care Time: No
[2024-04-23] MEDS: LACTATED RINGERS 1000ML 1,000 ML 999 ML IV (09:04)
[2024-04-23 09:19] LABS: Albumin Level 3.5 g/dl (3.5-5.0); Chloride 115 mmol/L (98-107)
[2024-04-23 09:20] LABS: Potassium 3.8 mmoL/L (3.5-5.1); Sodium 140 mmol/L (136-145)
[2024-04-23 09:21] LABS: INR 0.97 (0.9-1.1); Prothrombin Time 10.9 seconds (10.1-12.5)
[2024-04-23 09:22] LABS: Alanine Aminotransferase 19 U/L (12-78); Alkaline Phosphatase 104 U/L (38-126); Anion Gap 4.8 mEq/L (5-15); Aspartate Amino Transferase 30 U/L (14-36); Bilirubin,Total 0.7 mg/dl (0.2-1.3); Blood Urea Nitrogen 21 mg/dl (7-17); Carbon Dioxide 24 mmol/L (22.0-30.0); Creatinine Clearance Estimated 24 mL/min (50-200); Estimated Glomerular Filt Rate 24 ml/min (>60); Ethyl Alcohol < 10 mg/dl (0-10); GFR (African American) 29 ML/MIN (>60); Globulin 3.5 g/dL (1.3-3.2)
[2024-04-23 09:23] LABS: Calcium 9.8 mg/dl (8.4-10.2); Glucose 106 mg/dl (74-100)
--- NOTE | 2024-04-23 09:25 | PC.NURSE ---
pt was cleaned and placed in a gown when she arrived to our facility she was covered in bowel movement
[2024-04-23 09:27] LABS: Basophils % 0.4 % (0.1-2.0); Eosinophils % 4.9 % (0.1-12.0); Hematocrit 32.7 % (37.0-47.0); Hemoglobin 10.8 g/dL (12.2-16.2); Mean Corpuscular Hemoglobin 29.3 pg (27.0-31.2); Mean Corpuscular Volume 88.9 fl (81-99); Mean Platelet Volume 10.9 fl (7.4-10.4); Neutrophils % 69.3 % (37.0-80.0); Platelet Count 229 K/mm3 (142-424); Red Blood Count 3.68 M/mm3 (4.20-5.40); Red Cell Distribution Width 13.2 % (11.5-17.5); White Blood Count 7.3 K/mm3 (4.8-10.8)
[2024-04-23 09:28] LABS: Eosinophils # 0.4 K/mm3 (0.0-0.4); Lymphocytes # 1.5 K/mm3 (0.7-4.5); Monocytes # 0.3 K/mm3 (0.1-1.0); Neutrophils # 5.1 K/mm3 (1.8-7.8)
[2024-04-23 09:34] LABS: Troponin I 0.02 ng/ml (0.00-0.034)
--- NOTE | 2024-04-23 09:38 | CT_ITS ---
FINAL REPORT CLINICAL HISTORY: weakness cov+ COMPARISON: None FINDINGS: CT CHEST without contrast COMPARISON: None . TECHNIQUE: Axial CT without contrast This study was performed with techniques to keep radiation doses as low as reasonably achievable, (ALARA). Individualized dose reduction techniques using automated exposure control or adjustment of mA and/or kV according to the patient's size were employed. FINDINGS: There is a 13 mm nodule in the right lung apex indeterminate for neoplasm or infection. There is a spiculated left upper lobe nodule image 33 measuring 18 x 17 x 23 mm which extends into the mediastinum, suspicious for neoplasm. There is a small faint subpleural density on image 61 in the right lower lobe, probably postinflammatory. There is no consolidation to indicate active pneumonia. There is left prevascular adenopathy suspicious for malignant adenopathy measuring 30 x 15 mm. No hilar adenopathy seen. 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 Advanced plaque disease is noted of the aortic arch. There is a small pericardial effusion. No pleural effusion is seen. Limited images of the upper abdomen demonstrate bilateral adrenal enlargement, greatest on the left, measuring up to 16 mm. Renal atrophy and bilateral renal cysts are seen. There is cholelithiasis. IMPRESSION: Pulmonary lesions suspicious for neoplasm, particularly in the left upper lobe, with probable metastatic adenopathy. No evidence of active pneumonia. Left subclavian artery occluded. Reviewed, Interpreted and Dictated by Catherine Ross MD Transcribed by Anisa Spivey Authenticated and [facility]
[2024-04-23] MEDS: IOPAMIDOL-370 (76%);100ML BOTTLE 80 ML IV (10:06)
[2024-04-23] MEDS: 0.9 % SODIUM CHLORIDE 50 ML VIAL IV (10:06)
[2024-04-23] MEDS: SODIUM CHLORIDE 0.9% 10ML SYR (RAD ONLY) 10 ML IV (10:06)
[2024-04-23 10:28] LABS: Adenovirus F 40/41, stool Not Detected (NotDetected); Astrovirus Not Detected (NotDetected); Campylobacter Not Detected (NotDetected); Clostridium Difficile A/B, PCR Not Detected (NotDetected); Cryptosporidium Not Detected (NotDetected); Cyclospora Cayetanesis Not Detected (NotDetected); Entamoeba histolytica Not Detected (NotDetected); Enteroaggregative E coli Not Detected (NotDetected); Enteropathogenic E coli Not Detected (NotDetected); Enterotoxigenic E coli Not Detected (NotDetected); Giardia lamblia Not Detected (NotDetected); Norovirus Not Detected (NotDetected); Plesimonas Shigalloides, PCR Not Detected (NotDetected); Rotavirus A Not Detected (NotDetected); Salmonella, PCR Not Detected (NotDetected); Sapovirus Not Detected (NotDetected); Shiga-like toxin E coli Not Detected (NotDetected); Shigella Enterovasive E coli Not Detected (NotDetected); Vibrio Cholerae Not Detected (NotDetected); Vibrio, PCR Not Detected (NotDetected); Yersinia Entercolitica, PCR Not Detected (NotDetected)
[2024-04-23 10:34] LABS: Microscopic, Urine URINE MICROSCOPIC (MICROSCOPIC)
[2024-04-23 10:38] LABS: Appearance,Urine CLEAR (Clear); Bilirubin,Urine Negative (Negative); Blood, Urine Negative (Negative); Color,Urine YELLOW (Yellow); Glucose,Urine (UA) Negative (Negative); Ketones,Urine Negative (Negative); Leukocyte Esterase,Urine TRACE (Negative); Nitrate,Urine Negative (Negative); Protein,Urine Negative (Negative); Urobilinogen,Urine 0.2 EU/dl (0.2)
--- NOTE | 2024-04-23 10:45 | PC.NURSE ---
Pt. son expresses concerns about pt. at home and unable to take care of herself. Her spouse cannot take care of her. She is unable to ambulate. She has fallen multiple times since her recent hospital d/c. She is incontinent and is unable to clean up after herself. Son expresses wishes for her to be transferred to an assisted living or long-term care facility at d/c.
[2024-04-23 10:52] LABS: Bacteria,Urine Trace /lpf; RBC,Urine Occasional #/hpf (0-3)
--- NOTE | 2024-04-23 11:42 | PC.NURSE ---
Subha Inman at bedside.
--- NOTE | 2024-04-23 12:10 | PC.NURSE ---
unique from states that pt is ok on her part to go home, son is unable to pay for private pay, she is setting up home health for the pt at home. aware
[2024-04-23 12:47] LABS: Troponin I 0.01 ng/ml (0.00-0.034)
--- NOTE | 2024-04-23 12:57 | MR_ITS ---
FINAL REPORT TECHNIQUE: Multiplanar MR without contrast CLINICAL HISTORY: Abnormal CT head COMPARISON: CT 04/23/2024 FINDINGS: Diffusion sequences show abnormal restricted diffusion involving the left frontoparietal vertex. This is a probable left anterior cerebral artery distribution infarct or less likely a watershed infarct. Associated edema is present on FLAIR and T2 weighted sequences consistent with an acute or subacute infarct. The remainder of the parenchyma is unremarkable for acute process. Scattered periventricular white matter signal changes are seen compatible with mild chronic ischemic gliotic disease. Mild generalized atrophy is present. No mass, hemorrhage or edema is seen. Ventricles are normal. Major vascular flow voids are intact. IMPRESSION: Left frontoparietal acute/subacute infarct in the left anterior cerebral artery territory, less likely watershed territory. No intracranial hemorrhage is identified. Reviewed, Interpreted and Dictated by Catherine Ross MD Transcribed by Emy Howe Authenticated and [facility]
--- NOTE | 2024-04-23 13:17 | PC.NURSE ---
attempted to call report. nurse will call back
--- NOTE | 2024-04-23 13:24 | PC.NURSE ---
report called to Christina Heath RN
--- NOTE | 2024-04-23 13:53 | PC.NURSE ---
arrived by stretcher from ED
--- NOTE | 2024-04-23 13:54 | HMH.PHAINT1 ---
Pharmacy Intervention Comments: MEDICATION RECONCILIATION COMPLETED ON PATIENT USING EXTERNAL FILL HISTORY FROM PHARMACY AND DISCHARGE SUMMARY FROM PREVIOUS ADMISSION. -LANDEN CABRERA, JAVIERD
--- NOTE | 2024-04-23 14:47 | CA_ITS ---
APPROVED REPORT EXAM: Comprehensive 2D, Doppler, and color-flow Echocardiogram Clothes Drier Assembler: Nhung Pacheco RVT Ht: 5 ft 0 in Wt: 126lbs BSA: 1.53 BP: 161/62 mmHg Indications: CVA,CAD,LUNG MASS,SMOKER,DM,HTN,HLD,COVID + Echo Enhancing Agent Indication: Rule out thrombus Agent(s) / Amount(s) Used: Definity 2 cc 2D Dimensions IVSd 1.90 cm F: 0.6-1.0 LVEF (Visual) 53.10 % PWd 1.06 cm F: 0.6 - 1.0 LA Volume 54.90 mL LVDd 4.07 cm F: 3.9 - 5.3 LA Volume Index 35.88 mL/m2 (M/F) 16-34 LVDs 2.97 cm F: 2.2 - 3.5 M-Mode Dimensions LA Diam 3.62 cm (1.9-4.0) TAPSE 1.70 (<1.7) LV Diastology E Decel Time 320 (160-240 msec) E/A Ratio 0.7 Aortic Valve MARLYN Index 1.59 cm2/m2 AoV Peak Jc. 134.0 (50-130 cm/s) AO Peak GR. 7.10 mmHg AO Mean GR. 3.50 (<5 mmHg) AO VTI 28.1 (18-25 cm) MARLYN (VTI) 2.49 (2.5-4.5 cm2) Mitral Valve MV E Max Jc. 75.0 (40-130 cm/s) MV A Velocity 113.0 (40-130 cm/s) E/A Ratio 0.66 MV PHT 94.0 ms Pulmonary Valve PV Peak Velocity 87.0 (50-150 cm/s) Tricuspid Valve TR P. Velocity 330.00 cm/s RAP Estimate 10.00 mmHg RVSP 53.70 mmHg Left Ventricle The left ventricle is normal size. The left ventricular systolic function is normal. The left ventricular ejection fraction is within the normal range. There is increased LV wall thickness. There is normal LV segmental wall motion. Transmitral Doppler flow pattern suggests impaired LV relaxation. LVEF is 60%. Right Ventricle The right ventricle is normal size. The right ventricular systolic function is normal. Atria Left atrium is moderately dilated. The right atrium size is normal. There is no Doppler evidence of interatrial shunt. Aortic Valve The aortic valve is mildly thickened. There is no aortic valvular stenosis. No aortic regurgitation is present. Mitral Valve The mitral valve is normal in structure. No evidence of mitral valve stenosis. Trace mitral regurgitation. Tricuspid Valve Tricuspid valve is grossly normal in structure and function. Mild tricuspid regurgitation. RVSP is 35-40 mmHg. Pulmonic Valve The pulmonary valve is normal in structure. Trace pulmonic regurgitation. Great Vessels The aortic root is normal in size. IVC is normal in size and collapses >50% with inspiration. Pericardium There is no pericardial effusion. Other Information Study Quality: Fair Conclusion Normal biventricular systolic function. Mild LA dilation. Mild TR. RVSP 35-40 mmHg. Electronically signed by : Elsie Dunbar MD 04/25/2024 10:16:54
[2024-04-23] MEDS: DEFINITY US ECHO CONTRAST 2ML INJ 2 MG IV (15:53)
[2024-04-23 15:55] LABS: Troponin I 0.02 ng/ml (0.00-0.034)
--- NOTE | 2024-04-23 18:31 | EXP.HP ---
History of Present Illness *Admission Date: 04/23/24 *Reason for visit:: Functional decline, stroke *History of present illness: Flor Arroyo is a 78-year-old female with a medical history significant for chronic tobacco smoker, type 2 diabetes, TIA, hypertension, CAD, carotid artery disease who presents with recurrent falls and inability to take care of herself at home. Son at bedside provides most history along with patient. They state patient was okay for a day or 2 after he got home, but began having recurrent falls. Son states that she has urinated and defecated on herself, and the house is currently a mess. Patient lives at home with her . CT head showed acute/subacute frontoparietal stroke, neck CTA shows complete occlusion of the cervical left ICA and moderate stenosis of the proximal right ICA. It was noted that patient's right lower extremity was weaker than the left. Case discussed with ED provider and decision was made to admit patient for CVA. [facility] Disclaimer: The information contained in this section may have been updated after the patient was seen, as this information can be updated by other users. Medical History (Updated 04/23/24 @ 18:45 by Maicol Lester MD) History of TIA (transient ischemic attack) Elbow fracture, right Fracture of wrist TIA (transient ischemic attack) Bilateral carotid bruits PAD (peripheral artery disease) HLD (hyperlipidemia) CAD (coronary artery disease) HTN (hypertension) Carotid artery disease Surgical History (Updated 04/21/24 @ 00:00 by Stephen Tolliver) History of left-sided carotid endarterectomy Social History Smoking Status: Current every day smoker tobacco type: cigarettes packs per day: 1 second hand exposure: Yes alcohol intake: never counseling provided: none substance use type: denies use current occupational status: retired Travel in the last 8 weeks: None household members: spouse housing: house current occupational exposures/hazards: No caffeine: Yes Have you lived/traveled outside [place] in past 30 days?: No Contact w/someone who lives/traveled outside US past 30 days?: No Exposure to someone with infectious disease in past 14 days?: No Do you have a fever (greater than 100.4 F or 38 C)?: No Have you tested positive for COVID-19: No Exposed to someone with COVID-19 in past 14 days?: No Do you have a sore throat?: No Do you have a cough?: No Do you have any weakness?: No Do you have any diarrhea?: No Are you experiencing any unusual bleeding?: No Do you have any muscle aches/pain?: No Do you have any abdominal pain?: No Are you experiencing loss of taste or smell?: No Other Medical History Have you received the Flu Vaccine for this season: No Have you received the Pneumonia Vaccine: No Meds Home Medications and Allergies Home Medications ?Medication ?Instructions ?Recorded ?Confirmed ?Type atorvastatin 40 mg tablet 40 mg PO HS 05/23/17 04/23/24 History tcgilfasqwom-Lf-cdxc-minerals 1 tab PO DAILY 04/18/18 04/23/24 History (Multiple Vitamin, Womens tablet) sertraline 100 mg tablet 100 mg PO DAILY 06/20/18 04/23/24 History glipizide 5 mg tablet 5 mg PO DAILY 09/19/18 04/23/24 History lisinopril 10 mg tablet 10 mg PO DAILY 11/19/20 04/23/24 History tramadol 50 mg tablet 50 mg PO BIDP PRN Moderate Pain 04/17/24 04/23/24 History (Scale Score 5-6) trazodone 100 mg tablet 200 mg PO HSP PRN Sleep 04/17/24 04/23/24 History New Prescriptions to Start Prescriptions: Allergies Allergy/AdvReac Type Severity Reaction Status Date / Time latex (LATEX) Allergy Intermediate I-ITCHING Verified 11/29/22 09:57 Penicillins (PENICILLINS) Allergy Mild I-RASH Verified 11/29/22 09:57 Sulfa (Sulfonamide Allergy Unknown I-RASH Verified 11/29/22 09:57 Antibiotics) (SULFA (SULFONAMIDE ANTIBIOTICS)) Tetanus Vaccines and Toxoid Allergy Unknown Verified 11/29/22 09:57 (TETANUS VACCINES & TOXOID) Exam Data for Last 24 hours Vital signs and Labs for Last 24 Hours: Temp Pulse Resp BP Pulse Ox O2 Del Method 98.5 F 65 12 154/84 H 100 Room Air 04/23/24 16:00 04/23/24 16:00 04/23/24 16:00 04/23/24 16:00 04/23/24 16:00 04/23/24 17:00 Laboratory Results - last 24 hr 04/23/24 08:57: WBC 7.3, RBC 3.68 L, Hgb 10.8 L, Hct 32.7 L, MCV 88.9, MCH 29.3, MCHC 33.0, RDW 13.2, Plt Count 229, MPV 10.9 H, Neut % (Auto) 69.3, Lymph % (Auto) 21.0, [place] % (Auto) 4.0, Eos % (Auto) 4.9, Baso % (Auto) 0.4, Neut # (Auto) 5.1, Lymph # (Auto) 1.5, [place] # (Auto) 0.3, Eos # (Auto) 0.4, Baso # (Auto) 0.0, PT 10.9, INR 0.97, Sodium 140, Potassium 3.8, Chloride 115 H, Carbon Dioxide 24, Anion Gap 4.8 L, BUN 21 H, Creatinine 2.00 H, Estimated Creat Clear 24, Estimated GFR 24 L, Est GFR ( Amer) 29 L, Glucose 106 H, Calcium 9.8, Total Bilirubin 0.7, AST 30, ALT 19, Alkaline Phosphatase 104, Troponin I 0.02, Total Protein 7.0, Albumin 3.5, Globulin 3.5 H, Albumin/Globulin Ratio 1.0 L, Plasma/Serum Alcohol < 10 04/23/24 10:20: Stl Aeromonas (PCR) Not detected, Stl C. cayetanensis PCR Not detected, Stool Rotavirus (PCR) Not detected, Stl Adenov F 40/41 PCR Not detected, Stool Astrovirus (PCR) Not detected, Stool Campylobacter PCR Not detected, Stl C.difficile Tox PCR Not detected, Stool Cryptosporidium PCR Not detected, Stl E.coli Shiga Tox PCR Not detected, Stool E coli O157 PCR Not detected, Stl Enterotoxigenic E PCR Not detected, Stool EPEC (PCR) Not detected, Stool EAEC (PCR) Not detected, Stl E. histolytica PCR Not detected, Stool Giardia Lamblia PCR Not detected, Stool Salmonella PCR Not detected, Stool Sapovirus (PCR) Not detected, Stl P. shigelloides PCR Not detected, Stl Shigella/EIEC PCR Not detected, St Y.enterocolitica PCR Not detected, Stool Vibrio (PCR) Not detected, Stl Vibrio cholerae PCR Not detected, Stl Norovirus GI/GII PCR Not detected 04/23/24 10:30: Urine Color Yellow, Urine Appearance Clear, Urine pH 6.0, Ur Specific [place] 1.020, Urine Protein Negative, Urine Glucose (UA) Negative, Urine Ketones Negative, Urine Blood Negative, Urine Nitrate Negative, Urine Bilirubin Negative, Urine Urobilinogen 0.2, Ur Leukocyte Esterase Trace, Urine RBC Occasional, Urine WBC 10-20, Ur Squamous Epith Cells 10-20, Urine Bacteria Trace 04/23/24 12:13: Troponin I 0.01 04/23/24 15:11: Troponin I 0.02 I & O for Last 24 hours: Intake & Output 04/20/24 04/21/24 04/22/24 04/23/24 23:59 23:59 23:59 23:59 Intake Total 540 / 540 Output Total 0 / 0 Balance 540 / 540 Weight 57.153 kg Constitutional Constitutional: no acute distress *Routine HEENT Exam Head: Present normocephalic Eye: Present EOMI and PERRL ENT: Present mucous membranes moist *Routine Neck Exam Neck: Present supple; Absent lymphadenopathy *Routine Respiratory Exam Respiratory: Present CTA bilaterally *Routine Cardiovascular Exam Cardiovascular: Present RRR *Routine Abdominal Exam Abdominal: Present soft and normoactive bowel sounds; Absent tenderness *Routine Rectal Exam Rectal:: deferred *Routine Genitalia Exam Genitalia:: deferred *Routine Extremities Exam Extremities: Absent cyanosis, clubbing or edema Comments: Right lower extremity strength 1/5. Right upper extremity 4/5. Decree sensation in right leg compared to left. *Routine Skin Exam Skin: Present warm; Absent rash *Routine Neurological Exam Neurological: Present alert and oriented X3 Assessment and Plan *Assessment and plan (1) CVA (cerebral vascular accident): Status: Acute Category: Medical Code(s): I63.9 - Cerebral infarction, unspecified (2) Carotid artery, internal, occlusion: Status: Acute Category: Medical Code(s): I65.29 - Occlusion and stenosis of unspecified carotid artery Plan Flor Arroyo is a 78-year-old female with a medical history significant for chronic tobacco smoker, type 2 diabetes, TIA, hypertension, CAD, carotid artery disease who presents with recurrent falls and inability to take care of herself at home. Son at bedside provides most history along with patient. They state patient was okay for a day or 2 after he got home, but began having recurrent falls. Son states that she has urinated and defecated on herself, and the house is currently a mess. Patient lives at home with her . CT head showed acute/subacute left frontoparietal stroke, neck CTA shows complete occlusion of the cervical left ICA and moderate stenosis of the proximal right ICA. It was noted that patient's right lower extremity was weaker than the left. Case discussed with ED provider and decision was made to admit patient for CVA. #Acute/subacute frontoparietal stroke #Right lower, upper extremity weakness #Functional decline, inability to take care of herself #Recurrent falls #Type 2 diabetes #Chronic tobacco smoker #Hyperlipidemia #Hypertension ? Right MRI corroborates CT head for left frontoparietal infarct. Correlates with exam findings. ? Patient has significant risk factors including chronic tobacco smoker, diabetes, hyperlipidemia, hypertension. ? I had extensive conversations with patient, son, at bedside regarding goals of care. Son expressed how much his mother is declining over the past 6+ months, and is very concerned that she cannot take care of herself even though her lives with her. Given multiple comorbid conditions and risk factor for cardiovascular disease include strokes, and severe carotid disease and given that patient has adamantly expressed her desire to not want to control her risk factors and just live her life happily I do believe this significantly puts her at risk for future strokes and other major cardiovascular events. After extensive goals of care conversation with family and patient, they have decided to elect to pursue hospice care. ? Hospice care was consulted, hospice care nurse evaluated patient and accepted patient. Anticipate discharge tomorrow once hospice is set up at home. DNR/DNI Lovenox 30 mg
[2024-04-23] MEDS: ATORVASTATIN 40MG TABLET 40 MG PO (20:10)
[2024-04-24 04:00] VITALS: BP 154/70; PULSE 60; RESP 17; TEMP 36.9; O2SAT 95; BMI 24.3
[2024-04-24 07:13] LABS: Chloride 111 mmol/L (98-107); Sodium 136 mmol/L (136-145)
[2024-04-24 07:14] LABS: Potassium 3.6 mmoL/L (3.5-5.1)
[2024-04-24 07:16] LABS: Alanine Aminotransferase 16 U/L (12-78); Anion Gap 6.6 mEq/L (5-15); Aspartate Amino Transferase 29 U/L (14-36); Blood Urea Nitrogen 22 mg/dl (7-17); Calcium 9.1 mg/dl (8.4-10.2); Carbon Dioxide 22 mmol/L (22.0-30.0); Creatinine Clearance Estimated 23 mL/min (50-200); Estimated Glomerular Filt Rate 27 ml/min (>60); GFR (African American) 33 ML/MIN (>60); Glucose 106 mg/dl (74-100)
[2024-04-24 07:17] LABS: Alkaline Phosphatase 92 U/L (38-126); Bilirubin,Total 0.4 mg/dl (0.2-1.3); Magnesium 1.8 mg/dl (1.6-2.3)
[2024-04-24 07:42] LABS: Red Blood Count 3.21 M/mm3 (4.20-5.40); White Blood Count 7.9 K/mm3 (4.8-10.8)
[2024-04-24 07:43] LABS: Hematocrit 28.4 % (37.0-47.0); Mean Corpuscular HGB Conc 33.5 g/dL (31.8-35.4); Mean Corpuscular Hemoglobin 29.6 pg (27.0-31.2); Mean Corpuscular Volume 88.5 fl (81-99)
[2024-04-24 07:44] LABS: Basophils % 0.4 % (0.1-2.0); Eosinophils # 0.4 K/mm3 (0.0-0.4); Eosinophils % 4.5 % (0.1-12.0); Lymphocytes # 1.6 K/mm3 (0.7-4.5); Lymphocytes % 20.2 % (10-50); Mean Platelet Volume 10.9 fl (7.4-10.4); Monocytes # 0.5 K/mm3 (0.1-1.0); Monocytes % 5.8 % (1.7-9.3); Neutrophils # 5.4 K/mm3 (1.8-7.8); Neutrophils % 68.6 % (37.0-80.0); Platelet Count 200 K/mm3 (142-424)
--- NOTE | 2024-04-24 07:46 | SW/DCPLANNER ---
Addendum entered by Vidya Kaiser RN 04/26/24 11:13: Carlos Gruber came to see patient and offered patient a bed for SNF. Patient accepts and will be discharged there today. and son aware as well. KAHLIL Moseley Addendum entered by Subha Inman 04/24/24 12:27: After discussion w/ MD caitlyn and myself we will continue to search for SNF. Patient/family would like to try SNF prior to considering Hospice Care. CM will continue to follow up w/ patient and family. Addendum entered by Subha Inman 04/24/24 10:12: PT/OT evaluated patient and recommended SNF level of care. Patient is agreeable to [facility], [facility] and [facility]. I will fax information to these facilities while waiting for patient/family discussion w/ . I have also updated [facility] that patient may need SNF level of care. Addendum entered by Subha Inman 04/24/24 08:47: Patient's and son will be at bedside around 11AM today to speak w/ Dr Gomez and myself regarding discharge planning. Addendum entered by Subha Inman 04/24/24 08:04: Per [facility]: Suad (senior mobile application developer nurse) did evaluate patient yesterday and plan is to admit patient w/ their services once she returns home. Original Note: I spoke w/ this patient in the ED yesterday regarding plans once medically stable for discharge. I explained to patient her insurance, OBS and requiring private pay for SNF level of care. Patient was not interested in private pay at the time of my visit and requested that I call and update her . I called and spoke w/ regarding discharge planning. concurs that he is not interested in private pay and prefers patient to resume home. [facility] services were set up at time of discharge 04/17 and were suppose to start today. I will resume home health services at time of discharge. I also spoke w/ patient's son whom expressed patient is not able to care for herself at home, deplorable conditions but was not interested in private pay facility. I will follow up w/ patient and family this AM regarding possible Hospice referral.
--- NOTE | 2024-04-24 07:53 | PC.NURSE ---
pt alert and oriented X4 and was able to answer all questions. pt did state that someone from hospice came and spoke with her yesterday and stated she should go home today.
[2024-04-24 08:00] VITALS: BP 163/53; PULSE 65; RESP 19; TEMP 36.8; O2SAT 95
[2024-04-24] MEDS: ASPIRIN EC 81MG TABLET 81 MG PO (09:32)
[2024-04-24] MEDS: SERTRALINE 100MG TABLET 100 MG PO (09:32)
[2024-04-24 09:34] LABS: Hemoglobin 9.5 g/dL (12.2-16.2)
--- NOTE | 2024-04-24 09:42 | HMH.OTEV ---
OT Inpatient Evaluation Rehab OT IP Evaluation Start: 04/23/24 14:47 Freq: ONCE Status: Active Protocol: Document 04/24/24 09:36 [facility] (Rec: 04/24/24 09:42 [facility] [id number]) Rehab OT IP Assessment Subjective History Pt oriented x 2 on arrival. Pt agreeable to engage in therapy evaluation. Pt admitted on 04/23/24 due to CVA and functional decline. History and physical: Flor Arroyo is a 78-year-old female with a medical history significant for chronic tobacco smoker, type 2 diabetes, TIA, hypertension, CAD, carotid artery disease who presents with recurrent falls and inability to take care of herself at home. Son at bedside provides most history along with patient. They state patient was okay for a day or 2 after he got home, but began having recurrent falls. Son states that she has urinated and defecated on herself, and the house is currently a mess. Patient lives at home with her . CT head showed acute/subacute frontoparietal stroke, neck CTA shows complete occlusion of the cervical left ICA and moderate stenosis of the proximal right ICA. It was noted that patient's right lower extremity was weaker than the left. Case discussed with ED provider and decision was made to admit patient for CVA. Subjective I can try. Prior to being in the hospital , pt lived at home with her . Pt reports she is dependent upon her for completion of all IADLs. Pt also required assistance with most ADLs such as dressing and bathing. Pt used a rolling walker during functional transfers. Pt no longer drove . Objective Patient Orientation Person,Birthday Right Upper Extremity Gross ROM Mod Limitation 50% Left Upper Extremity Gross ROM WFL Shoulder ROM Limitations Muscle Weakness Elbow ROM Limitations Muscle Weakness Wrist Limitations of Range of Motion Muscle Weakness Bed Mobility bed mobility-scooting,bed mobility - supine/sit Assist Level Minimal x 2 (25% assist) Transfer Training Sit/Stand Transfer Assist Level Minimal x 2 (25% assist) Lower Body Dressing Ability Maximum Assistance Rehab OT IP prob,goals,plan Problems Date of Evaluation: 04/24/24 OT IP Problems Bed Mobility,Transfers,Balance ,Self care,Safety Rehab Potential Rehab Potential Good Equipment Needs Assistive Devices Rolling / Wheeled Walker Plan OT intervention Plan Bed Mobility,Transfers,Balance ,Self care,Safety,Therapeutic Exercise OT Plan Frequency Daily Duration LOS Discharge Goals Bed Mobility Ability Assistance x1 Sit to Stand Chair Transfer Ability Minimal x 1 (25% assist) Chair Transfer Ability Minimal x 1 (25% assist) Chair Transfer Technique Sit to/from Ambulatory Chair Transfer Assistive Devices Rolling Walker Feeding Ability Assist with Tray Set Up Lower Body Dressing Ability Moderate Assistance Upper Body Dressing Ability Minimal Assistance Bathing Ability Maximum Assistance Performing Toilet Hygiene Ability Maximum Assistance Overall Commode/Toilet Transfer Ability Minimal Assistance Commode/Toilet Transfer Technique Sit to/from Ambulatory Commode/Toilet Transfer Assistive Grab Bars Devices Oral Care Assist Minimal Assistance Decrease in Endurance Yes Discharge Plan OT Discharge Plan Pt will continue to be seen for OT services while at [facility]. At this time, pt would benefit most from short term rehab at SNF following discharge from hospital. Continued skilled therapy is important in order for patient to improve strength, safety, endurance, ADL independence, and functional transfers to reach PLOF. Eval Complexity Eval Charge Codes 87942 - Moderate Complexity PHYSICIAN CERTIFICATION: I certify the specified therapy services for Flor Arroyo are required, authorized, and reviewed every 30 days.
--- NOTE | 2024-04-24 09:46 | HMH.PTEV ---
Physical Therapy Evaluation Rehab PT IP Evaluation Start: 04/23/24 14:47 Freq: ONCE Status: Active Protocol: Document 04/24/24 09:37 JENI (Rec: 04/24/24 09:45 [id number]) Subjective/History History History Per H&P Flor Arroyo is a 78- year-old female with a medical history significant for chronic tobacco smoker, type 2 diabetes, TIA, hypertension, CAD, carotid artery disease who presents with recurrent falls and inability to take care of herself at home. Son at bedside provides most history along with patient. They state patient was okay for a day or 2 after he got home, but began having recurrent falls. Son states that she has urinated and defecated on herself, and the house is currently a mess. Patient lives at home with her . CT head showed acute/subacute frontoparietal stroke, neck CTA shows complete occlusion of the cervical left ICA and moderate stenosis of the proximal right ICA. It was noted that patient's right lower extremity was weaker than the left. Case discussed with ED provider and decision was made to admit patient for CVA. Subjective Subjective Pt reports that she lives at home with her . She reports that her helps her with most of her self- care needs including dressing, bathing. She reports that she has had multiple falls recently, but is unable to how many or when her most recent fall was. She reports that she uses a rollator walker for at home mobility. Pt reports no pain. New diagnosis of cancer in past 12 No months? Rehab PT IP Eval Objective Appearance Patient Behavior Appropriate Patient Orientation Person,Place,Time,Birthday Difficulty following instructions mild Speech Pattern Mumbled Ambulation Patient Able to Ambulate Yes Ambulation Observation IP General Gait Pattern Observation Antalgic Gait,Decrease Stride Lngth (R) Ambulation Distance (feet) 20 Ambulation Assistive Device Rolling Walker Ambulation Ability Minimal x 2 (25% assist) Balance Ability to Arise Able, uses arms to help Sitting Balance Leans or slides in chair Standing Balance Steady, wide stance Dynamic Sitting Balance Ability Fair Dynamic Standing Balance Ability Poor Transfers Bed Transfer Ability Minimal x 2 (25% assist) Sit to Stand Bed Transfer Ability Minimal x 2 (25% assist) Sit to Stand Chair Transfer Ability Minimal x 2 (25% assist) Rehab PT IP prob,goals,plan Problems Date of Evaluation: 04/24/24 PT IP Problems Bed Mobility,Transfers,Gait, Balance,Self care Rehab Potential Rehab Potential Fair Equipment Needs Assistive Devices Standard Walker Plan PT Intervention Plan Bed Mobility,Transfers,Gait, Balance,Self care,Safety, Therapeutic Exercise PT Plan Frequency Daily Duration LOS Discharge Goals Bed Transfer Ability Supervision/Stand by Sit to Stand Chair Transfer Ability Supervision/Stand by Ambulation Assistive Device Rolling Walker Ambulation Distance (feet) 100 Discharge Plan PT Discharge Plan Pt presents with impaired ambulatory ability, transfers and balance. Upon discharge from the hospital, the patient would benefit from short-term rehab. The pt would benefit from skilled PT while in the hospital to address her current impairments and to prevent further injuries. Eval Complexity Eval Charge Codes 62282 - Moderate Complexity PHYSICIAN CERTIFICATION: I certify the specified therapy services for Flro Arroyo are required, authorized, and reviewed every 30 days.
--- NOTE | 2024-04-24 11:27 | PC.NURSE ---
RA o2 sat at rest 86%
--- NOTE | 2024-04-24 14:07 | P.EN_ITS ---
Advance care planning note: Active diagnosis: Stroke, lung mass, declining status, CKD, diabetes, hypertension The patient's active diagnoses are of sufficient risk that focused discussion on advanced care planning is indicated in order to allow the patient to thoughtfully consider personal goals of care; and, if situations arise that prevent the ability to personally give input, to ensure appropriate representation of their personal desires through documentation or informed surrogate decision makers. Discussion: Persons present and participating in discussion: Patient, , son, [id number], myself and social work Discussion: Discussed patient's current condition with acute stroke and new right-sided deficits. Discussed finding concerning for lung mass/cancer. Dis cussed options for further workup of lung mass and therapy for her new deficits from stroke. No desire to workup her lung mass or go through any treatments. She is interested however in pursuing therapy to improve mobility after her stroke prior to going home. Family agreeable to placement for rehab. Patient also interested in hospice if does not show improvement. Family agreeable to this as well. All questions answered. Discussed resources available with different options including rehab, home health, hospice. Family appears to be overwhelmed with need for help. Appeared appreciative for the options that hospice would provide and assisting with care in line with goals to not work up a new finding of lung mass any further. Time spent: Total time spent [id number] in education and discussion directly related to advance care plannin minutes Gen Gomez 04/24/2024
--- NOTE | 2024-04-24 14:07 | EXP.ACUTE.PN ---
Subjective *Date: 04/24/24 *Time: 15:55 Interval history: Patient feeling well this more. Continues to have right sided deficits in her right lower extremity and weakness in right hand. Denies chest pain or shortness of breath. Stable on room air. Afebrile. Goals of care discussion with family at bedside. See ACP note for details Medical Exam Vital signs and Labs for Last 24 Hours: Vital Signs Temp Pulse Resp BP Pulse Ox O2 Del Method 04/24/24 11:00 Room Air 04/24/24 09:00 Room Air 04/24/24 08:00 Room Air 04/24/24 08:00 98.2 F 65 19 163/53 H 95 Room Air 04/24/24 06:31 Room Air 04/24/24 05:00 Room Air 04/24/24 04:00 98.4 F 60 17 154/70 H 95 Room Air 04/24/24 03:00 Room Air 04/24/24 01:00 Room Air 04/23/24 23:00 Room Air 04/23/24 21:00 Room Air 04/23/24 20:10 Room Air 04/23/24 19:37 98.8 F 87 16 117/77 97 Room Air 04/23/24 19:00 Room Air 04/23/24 17:00 Room Air 04/23/24 16:00 98.5 F 65 12 154/84 H 100 Room Air 04/23/24 15:00 Room Air Intake and Output 04/23/24 04/24/24 04/24/24 23:59 07:59 15:59 Intake Total 540 / 540 100 / 100 Output Total 0 / 0 100 / 200 100 / 200 Balance 540 / 540 -100 / -100 0 / -100 Intake: Intake, Oral Amount 540 / 540 100 / 100 Output: Output, Urine Amount 0 / 0 100 / 200 100 / 200 Other: Number of Unmeasured Voids 1 1 0 Number of Bowel Movements 2 1 1 Weight 56.245 kg Patient Weight 04/24/24 23:59 Weight 56.245 kg Laboratory Results - last 24 hr 04/23/24 10:20: Stl Aeromonas (PCR) Not detected, Stl C. cayetanensis PCR Not detected, Stool Rotavirus (PCR) Not detected, Stl Adenov F 40/41 PCR Not detected, Stool Astrovirus (PCR) Not detected, Stool Campylobacter PCR Not detected, Stl C.difficile Tox PCR Not detected, Stool Cryptosporidium PCR Not detected, Stl E.coli Shiga Tox PCR Not detected, Stool E coli O157 PCR Not detected, Stl Enterotoxigenic E PCR Not detected, Stool EPEC (PCR) Not detected, Stool EAEC (PCR) Not detected, Stl E. histolytica PCR Not detected, Stool Giardia Lamblia PCR Not detected, Stool Salmonella PCR Not detected, Stool Sapovirus (PCR) Not detected, Stl P. shigelloides PCR Not detected, Stl Shigella/EIEC PCR Not detected, St Y.enterocolitica PCR Not detected, Stool Vibrio (PCR) Not detected, Stl Vibrio cholerae PCR Not detected, Stl Norovirus GI/GII PCR Not detected 04/23/24 15:11: Troponin I 0.02 04/24/24 06:20: WBC 7.9, RBC 3.21 L, Hgb 9.5 L D, Hct 28.4 L, MCV 88.5, MCH 29.6, MCHC 33.5, RDW 13.0, Plt Count 200, MPV 10.9 H, Neut % (Auto) 68.6, Lymph % (Auto) 20.2, [place] % (Auto) 5.8, Eos % (Auto) 4.5, Baso % (Auto) 0.4, Neut # (Auto) 5.4, Lymph # (Auto) 1.6, [place] # (Auto) 0.5, Eos # (Auto) 0.4, Baso # (Auto) 0.0, Sodium 136, Potassium 3.6, Chloride 111 H, Carbon Dioxide 22, Anion Gap 6.6, BUN 22 H, Creatinine 1.80 H, Estimated Creat Clear 23, Estimated GFR 27 L, Est GFR ( Amer) 33 L, Glucose 106 H, Calcium 9.1, Magnesium 1.8, Total Bilirubin 0.4, AST 29, ALT 16, Alkaline Phosphatase 92, Total Protein 6.0 L, Albumin 3.0 L D, Globulin 3.0, Albumin/Globulin Ratio 1.0 L I & O for Labs for Last 24 Hours: Intake & Output 04/21/24 04/22/24 04/23/24 04/24/24 23:59 23:59 23:59 23:59 Intake Total 540 / 540 100 / 100 Output Total 0 / 0 200 / 200 Balance 540 / 540 -100 / -100 Weight 57.153 kg 56.245 kg Constitutional: Present no acute distress, thin, chronically ill appearing and cooperative Head: Present atraumatic and normocephalic ENT: Present normal exam Respiratory: Present normal respiratory effort; Absent rhonchi, wheezes or crackles Cardiac: Present Reg Rate and Rhythm GI: Present soft and normal bowel sounds; Absent distention or tenderness Extremities: Present normal inspection Comment:: Right lower extremity weakness, deficits noted Skin: Present intact; Absent erythema Neuro: Present Grossly Intact, alert, awake, oriented x 3 and moves all extremities Comment:: Poor recall discussion yesterday with hospice however. Right lower extremity weakness compared to left. Strength 3+ out of 5 with lifting leg off bed and bending right knee Assessment and Plan *Assessment and plan (1) CVA (cerebral vascular accident): Status: Acute Category: Medical Code(s): I63.9 - Cerebral infarction, unspecified (2) Carotid artery, internal, occlusion: Status: Acute Category: Medical Code(s): I65.29 - Occlusion and stenosis of unspecified carotid artery (3) Lung mass: Status: Acute Category: Medical Code(s): R91.8 - Other nonspecific abnormal finding of lung field (4) Diarrhea: Status: Acute Qualifiers: Diarrhea type: unspecified type Qualified Code(s): R19.7 - Diarrhea, unspecified Category: Medical Code(s): R19.7 - Diarrhea, unspecified (5) Declining functional status: Status: Acute Category: Medical Code(s): R53.81 - Other malaise (6) PAD (peripheral artery disease): Status: Chronic Category: Medical Code(s): I73.9 - Peripheral vascular disease, unspecified (7) HLD (hyperlipidemia): Status: Chronic Qualifiers: Hyperlipidemia type: mixed hyperlipidemia Qualified Code(s): E78.2 - Mixed hyperlipidemia Category: Medical Code(s): E78.5 - Hyperlipidemia, unspecified (8) Diabetes mellitus type 2, controlled: Status: Chronic Qualifiers: Diabetes mellitus parts counterman insulin use: without parts counterman use Diabetes mellitus complication status: without complication Qualified Code(s): E11.9 - Type 2 diabetes mellitus without complications Category: Medical Code(s): E11.9 - Type 2 diabetes mellitus without complications (9) Chronic kidney disease: Status: Chronic Qualifiers: Chronic kidney disease stage: unspecified stage Qualified Code(s): N18.9 - Chronic kidney disease, unspecified Category: Medical Code(s): N18.9 - Chronic kidney disease, unspecified (10) HTN (hypertension): Status: Chronic Qualifiers: Hypertension type: essential hypertension Qualified Code(s): I10 - Essential (primary) hypertension Category: Medical Code(s): I10 - Essential (primary) hypertension Plan Flor Arroyo is a 78-year-old female with a medical history significant for chronic tobacco smoker, type 2 diabetes, TIA, hypertension, CAD, carotid artery disease who presents with recurrent falls and inability to take care of herself at home. Son at bedside provides most history along with patient. They state patient was okay for a day or 2 after he got home, but began having recurrent falls. Son states that she has urinated and defecated on herself, and the house is currently a mess. Patient lives at home with her . CT head showed acute/subacute left frontoparietal stroke, neck CTA shows complete occlusion of the cervical left ICA and moderate stenosis of the proximal right ICA. It was noted that patient's right lower extremity was weaker than the left. Case discussed with ED provider and decision was made to admit patient for CVA. MRI obtained, confirming acute and subacute stroke in left frontoparietal region. Therapy evaluated, recommend placement. Goals of care discussion with family, would like to pursue therapy prior to transitioning to home. Case management assisting with referral. Patient remains hemodynamically stable. Problems addressed as follows: #Acute/subacute frontoparietal stroke #Right lower, upper extremity weakness #Functional decline, inability to take care of herself #Recurrent falls #Type 2 diabetes #Chronic tobacco smoker #Hyperlipidemia #Hypertension ? Right MRI corroborates CT head for left frontoparietal infarct. Correlates with exam findings. ? Patient has significant risk factors including chronic tobacco smoker, diabetes, hyperlipidemia, hypertension. ? Left lung mass. Patient has no interest in further workup or evaluation of mass. She is open to considering hospice if she does not do well with therapy. Would like to try therapy for stroke first to try and get home and be more functional. -Kidney function stable today with BUN 22, creatinine 1.8. Glucose normal at 106. Anemia stable with hemoglobin 9.5. Lab holiday in the morning. Repeat labs ordered for 04/26. This includes CBC, CMP, magnesium. -Hospice is evaluated, patient would meet criteria. Will defer referral to hospice however pending placement for rehab as patient would like to try and improve her functionality first. Family agreeable. -Aspirin 81 mg daily, Plavix 75 mg daily for 21 days. -Continue medications for blood sugar including lisinopril 10 mg daily. -Continue high intensity statin with Lipitor. -Continue Zoloft 100 mg daily for mood and trazodone 200 mg nightly as needed for sleep DNR/DNI Lovenox 30 mg daily
[2024-04-24] MEDS: CLOPIDOGREL 75MG TAB 75 MG PO (15:02)
[2024-04-24 16:00] VITALS: BP 91/53; PULSE 70; RESP 20; TEMP 37.3; O2SAT 91
--- NOTE | 2024-04-24 18:30 | PC.NURSE ---
pt A&O x3. pleasant and no changes from previous shift. pt has rested majority of shift, family was at bs t/o most of day no needs at this time. cb within reach and bed alarm on for pt safety.
[2024-04-24 20:00] VITALS: BP 143/64; PULSE 65; RESP 16; TEMP 37.3; O2SAT 95
[2024-04-24] MEDS: ATORVASTATIN 40MG TABLET 40 MG PO (20:04)
[2024-04-25 04:00] VITALS: BP 180/78; PULSE 63; RESP 17; TEMP 37.2; O2SAT 96; BMI 24.9
[2024-04-25 08:00] VITALS: BP 100/58; PULSE 62; RESP 18; TEMP 36.6; O2SAT 96
[2024-04-25] MEDS: ASPIRIN EC 81MG TABLET 81 MG PO (09:07)
[2024-04-25] MEDS: ENOXAPARIN 30MG/0.3ML SYRINGE 30 MG SUBCUT (09:07)
[2024-04-25] MEDS: CLOPIDOGREL 75MG TAB 75 MG PO (09:07)
[2024-04-25] MEDS: SERTRALINE 100MG TABLET 100 MG PO (09:07)
--- NOTE | 2024-04-25 09:15 | EXP.ACUTE.PN ---
Subjective *Date: 04/25/24 *Time: 11:58 Interval history: No complaints over. No issues. No new deficits this morning. Stable on room air. Tolerating p.o. intake. Awaiting placement. Medical Exam Vital signs and Labs for Last 24 Hours: Vital Signs Temp Pulse Resp BP Pulse Ox O2 Del Method 04/25/24 08:00 98 F 62 18 100/58 L 96 Room Air 04/25/24 06:56 Room Air 04/25/24 05:00 Room Air 04/25/24 04:00 99.0 F 63 17 180/78 H 96 Room Air 04/25/24 03:00 Room Air 04/25/24 01:00 Room Air 04/24/24 23:00 Room Air 04/24/24 21:00 Room Air 04/24/24 20:00 Room Air 04/24/24 20:00 99.2 F 65 16 143/64 H 95 Room Air 04/24/24 18:43 Room Air 04/24/24 17:00 Room Air 04/24/24 16:00 99.2 F 70 20 91/53 L 91 L Room Air 04/24/24 14:56 Room Air 04/24/24 13:00 Room Air 04/24/24 11:00 Room Air Intake and Output 04/24/24 04/25/24 04/25/24 23:59 07:59 15:59 Intake Total 260 / 740 200 / 200 Output Total 100 / 600 350 / 350 Balance 160 / 140 -150 / -150 Intake: Intake, Oral Amount 260 / 740 200 / 200 Output: Output, Urine Amount 100 / 600 350 / 350 Other: Number of Unmeasured Voids 1 1 Number of Bowel Movements 1 Weight 57.561 kg Patient Weight 04/25/24 23:59 Weight 57.561 kg Laboratory Results - last 24 hr 04/24/24 06:20: Hgb 9.5 L D I & O for Labs for Last 24 Hours: Intake & Output 04/22/24 04/23/24 04/24/24 04/25/24 23:59 23:59 23:59 23:59 Intake Total 540 / 540 540 / 740 200 / 200 Output Total 0 / 0 600 / 600 350 / 350 Balance 540 / 540 -60 / 140 -150 / -150 Weight 57.153 kg 56.245 kg 57.561 kg Constitutional: Present no acute distress, thin, chronically ill appearing and cooperative Head: Present atraumatic and normocephalic ENT: Present normal exam Respiratory: Present normal respiratory effort; Absent rhonchi, wheezes or crackles Cardiac: Present Reg Rate and Rhythm GI: Present soft and normal bowel sounds; Absent distention or tenderness Extremities: Present normal inspection Comment:: Right lower extremity weakness, deficits noted Skin: Present intact; Absent erythema Neuro: Present Grossly Intact, alert, awake, oriented x 3 and moves all extremities Comment:: Right lower extremity weakness compared to left. Strength 3/5 with lifting leg off bed and bending right knee Assessment and Plan *Assessment and plan (1) CVA (cerebral vascular accident): Status: Acute Category: Medical Code(s): I63.9 - Cerebral infarction, unspecified (2) Carotid artery, internal, occlusion: Status: Acute Category: Medical Code(s): I65.29 - Occlusion and stenosis of unspecified carotid artery (3) Lung mass: Status: Acute Category: Medical Code(s): R91.8 - Other nonspecific abnormal finding of lung field (4) Diarrhea: Status: Acute Qualifiers: Diarrhea type: unspecified type Qualified Code(s): R19.7 - Diarrhea, unspecified Category: Medical Code(s): R19.7 - Diarrhea, unspecified (5) Declining functional status: Status: Acute Category: Medical Code(s): R53.81 - Other malaise (6) PAD (peripheral artery disease): Status: Chronic Category: Medical Code(s): I73.9 - Peripheral vascular disease, unspecified (7) HLD (hyperlipidemia): Status: Chronic Qualifiers: Hyperlipidemia type: mixed hyperlipidemia Qualified Code(s): E78.2 - Mixed hyperlipidemia Category: Medical Code(s): E78.5 - Hyperlipidemia, unspecified (8) Diabetes mellitus type 2, controlled: Status: Chronic Qualifiers: Diabetes mellitus complication status: without complication Diabetes mellitus long-term insulin use: without long-term use Qualified Code(s): E11.9 - Type 2 diabetes mellitus without complications Category: Medical Code(s): E11.9 - Type 2 diabetes mellitus without complications (9) Chronic kidney disease: Status: Chronic Qualifiers: Chronic kidney disease stage: unspecified stage Qualified Code(s): N18.9 - Chronic kidney disease, unspecified Category: Medical Code(s): N18.9 - Chronic kidney disease, unspecified (10) HTN (hypertension): Status: Chronic Qualifiers: Hypertension type: essential hypertension Qualified Code(s): I10 - Essential (primary) hypertension Category: Medical Code(s): I10 - Essential (primary) hypertension Plan Flor Arroyo is a 78-year-old female with a medical history significant for chronic tobacco smoker, type 2 diabetes, TIA, hypertension, CAD, carotid artery disease who presents with recurrent falls and inability to take care of herself at home. Son at bedside provides most history along with patient. They state patient was okay for a day or 2 after he got home, but began having recurrent falls. Son states that she has urinated and defecated on herself, and the house is currently a mess. Patient lives at home with her . CT head showed acute/subacute left frontoparietal stroke, neck CTA shows complete occlusion of the cervical left ICA and moderate stenosis of the proximal right ICA. It was noted that patient's right lower extremity was weaker than the left. Case discussed with ED provider and decision was made to admit patient for CVA. MRI obtained, confirming acute and subacute stroke in left frontoparietal region. Therapy evaluated, recommend placement. Awaiting rehab placement. Continues to require inpatient management. Problems addressed as follows: #Acute/subacute frontoparietal stroke #Right lower, upper extremity weakness #Functional decline, inability to take care of herself #Recurrent falls #Type 2 diabetes #Chronic tobacco smoker #Hyperlipidemia #Hypertension ? Right MRI corroborates CT head for left frontoparietal infarct. Correlates with exam findings. ? Patient has significant risk factors including chronic tobacco smoker, diabetes, hyperlipidemia, hypertension. ? Left lung mass. Patient has no interest in further workup or evaluation of mass. Patient does not want to pursue further workup. She is open to considering hospice if she does not do well with therapy. Would like to try therapy for stroke first to try and get home and be more functional. -Lab holiday today, repeat labs ordered for the morning including CBC, CMP, magnesium. -Referred for placement, case management assisting. -Aspirin 81 mg daily, Plavix 75 mg daily for 21 days. -Continue medications for blood sugar including lisinopril 10 mg daily. -Continue high intensity statin with Lipitor. -Continue Zoloft 100 mg daily for mood and trazodone 200 mg nightly as needed for sleep DNR/DNI Lovenox 30 mg daily
[2024-04-25 16:00] VITALS: BP 104/58; PULSE 84; RESP 18; TEMP 37.1; O2SAT 93
--- NOTE | 2024-04-25 17:17 | PC.NURSE ---
Alert and oriented x3. Pt has no complaints and has rested in bed most of shift. she is on RA. slight weakness in right side due to TIA. Tolerating meals well. Pt is a check and change due to incontinence. Family at bedside with pt. call ross in reach.
[2024-04-25 19:57] VITALS: BP 153/63; PULSE 63; RESP 18; TEMP 37.1; O2SAT 94
[2024-04-25 20:00] VITALS: O2SAT 94
[2024-04-25] MEDS: ATORVASTATIN 40MG TABLET 40 MG PO (20:25)
[2024-04-26] VITALS: BP 90/60; PULSE 65; RESP 16; TEMP 37; O2SAT 94
[2024-04-26 04:00] VITALS: BP 96/58; PULSE 65; RESP 16; TEMP 36.9; O2SAT 93; BMI 24.8
--- NOTE | 2024-04-26 04:08 | PC.NURSE ---
78 yo fe pt admitted with CVA and lung mass. Pt is A/O X 3. She has denied pain or discomfort throughout shift .Pt iis on RA. Weakness to right side, requiring assist with any activity. VS have been WNL for pt
[2024-04-26 07:47] LABS: Albumin Level 2.9 g/dl (3.5-5.0); Chloride 114 mmol/L (98-107); Hematocrit 26.7 % (37.0-47.0); Hemoglobin 8.8 g/dL (12.2-16.2); Mean Corpuscular Volume 88.1 fl (81-99); Potassium 3.4 mmoL/L (3.5-5.1); Red Blood Count 3.03 M/mm3 (4.20-5.40); Sodium 137 mmol/L (136-145); White Blood Count 7.1 K/mm3 (4.8-10.8)
[2024-04-26 07:48] LABS: Basophils % 0.4 % (0.1-2.0); Eosinophils # 0.3 K/mm3 (0.0-0.4); Eosinophils % 4.8 % (0.1-12.0); Lymphocytes # 1.6 K/mm3 (0.7-4.5); Lymphocytes % 22.3 % (10-50); Mean Platelet Volume 11.4 fl (7.4-10.4); Monocytes # 0.4 K/mm3 (0.1-1.0); Monocytes % 5.6 % (1.7-9.3); Neutrophils # 4.7 K/mm3 (1.8-7.8); Neutrophils % 66.6 % (37.0-80.0); Platelet Count 190 K/mm3 (142-424); Red Cell Distribution Width 13.2 % (11.5-17.5)
[2024-04-26 07:50] LABS: Alanine Aminotransferase 19 U/L (12-78); Alkaline Phosphatase 96 U/L (38-126); Anion Gap 6.4 mEq/L (5-15); Aspartate Amino Transferase 31 U/L (14-36); Bilirubin,Total 0.3 mg/dl (0.2-1.3); Blood Urea Nitrogen 24 mg/dl (7-17); Carbon Dioxide 20 mmol/L (22.0-30.0); Creatinine Clearance Estimated 21 mL/min (50-200); Estimated Glomerular Filt Rate 24 ml/min (>60); GFR (African American) 29 ML/MIN (>60); Total Protein,Serum 5.9 g/dl (6.3-8.2)
[2024-04-26 07:51] LABS: Glucose 107 mg/dl (74-100); Magnesium 1.6 mg/dl (1.6-2.3)
[2024-04-26 08:00] VITALS: BP 136/60; PULSE 66; RESP 19; TEMP 36.7; O2SAT 93
[2024-04-26] MEDS: MAGNESIUM SULFATE IN WATER 2 GM/50 ML PIGGYBACK IV ×2 (09:20→11:03)
[2024-04-26] MEDS: POTASSIUM CHLORIDE 20MEQ TAB 40 MEQ PO ×2 (09:20→12:00)
[2024-04-26] MEDS: SERTRALINE 100MG TABLET 100 MG PO (09:21)
[2024-04-26] MEDS: CLOPIDOGREL 75MG TAB 75 MG PO (09:21)
[2024-04-26] MEDS: ASPIRIN EC 81MG TABLET 81 MG PO (09:21)
[2024-04-26] MEDS: ENOXAPARIN 30MG/0.3ML SYRINGE 30 MG SUBCUT (09:21)
--- NOTE | 2024-04-26 10:40 | P.DS_ITS ---
General Admission date:: 04/23/24 Discharge date: 04/26/24 HPI HPI HPI: Flor Arroyo is a 78-year-old female with a medical history significant for chronic tobacco smoker, type 2 diabetes, TIA, hypertension, CAD, carotid artery disease who presents with recurrent falls and inability to take care of herself at home. Son at bedside provides most history along with patient. They state patient was okay for a day or 2 after he got home, but began having recurrent falls. Son states that she has urinated and defecated on herself, and the house is currently a mess. Patient lives at home with her . CT head showed acute/subacute frontoparietal stroke, neck CTA shows complete occlusion of the cervical left ICA and moderate stenosis of the proximal right ICA. It was noted that patient's right lower extremity was weaker than the left. Case discussed with ED provider and decision was made to admit patient for CVA. Hospital Course Hospital Course Hospital Course: Flor Arroyo is a 78-year-old female with a medical history significant for chronic tobacco smoker, type 2 diabetes, TIA, hypertension, CAD, carotid artery disease who presents with recurrent falls and inability to take care of herself at home. Son at bedside provides most history along with patient. They state patient was okay for a day or 2 after he got home, but began having recurrent falls. Son states that she has urinated and defecated on herself, and the house is currently a mess. Patient lives at home with her . CT head showed acute/subacute left frontoparietal stroke, neck CTA shows complete occlusion of the cervical left ICA and moderate stenosis of the proximal right ICA. It was noted that patient's right lower extremity was weaker than the left. Case discussed with ED provider and decision was made to admit patient for CVA. MRI obtained, confirming acute and subacute stroke in left frontoparietal region. Therapy worked with patient during admission. Deficits stable on right side. Would benefit from rehab. Will discharge to [place] for further management. Plan to discharge home and time with possible consult for hospice given desire to not workup any further the new finding of lung mass. Problems addressed as follows: #Acute/subacute frontoparietal stroke #Right lower, upper extremity weakness #Functional decline, inability to take care of herself #Recurrent falls #Type 2 diabetes #Chronic tobacco smoker #Hyperlipidemia #Hypertension ? Right MRI corroborates CT head for left frontoparietal infarct. Correlates with exam findings. Patient has been working with therapy during admission. Significant risk factors for stroke including chronic tobacco smoker, diabetes, hyperlipidemia, hypertension. Found to have Left lung mass. Patient has no interest in further workup or evaluation of mass. Patient does not want to pursue further workup. She is open to considering hospice if she does not do well with therapy. Would like to try therapy for stroke first to try and get home and be more functional. Started on goal-directed therapy for her CVA including aspirin 81 mg daily, Plavix 75 mg daily. Will complete dual antiplatelet therapy for 21 days. Holding her lisinopril at this time. Continue high intensity statin. Continue Zoloft 100 mg daily and trazodone 50 mg nightly for mood and sleep. Patient overall doing well. See med rec for full list of medications for chronic conditions including diabetes medication with glipizide. Glucose has been well-controlled during admission. Medically stable for discharge to rehab. Total time spent on discharge 32 minutes in counseling, documentation, chart review, and direct care with patient. Exam Data for Last 24 hours Vital signs and Labs for Last 24 Hours: Temp Pulse Resp BP Pulse Ox O2 Del Method 98.1 F 66 19 136/60 93 L Room Air 04/26/24 08:00 04/26/24 08:00 04/26/24 08:00 04/26/24 08:00 04/26/24 08:00 04/26/24 08:00 Laboratory Results - last 24 hr 04/26/24 06:30: WBC 7.1, RBC 3.03 L, Hgb 8.8 L, Hct 26.7 L, MCV 88.1, MCH 29.0, MCHC 33.0, RDW 13.2, Plt Count 190, MPV 11.4 H, Neut % (Auto) 66.6, Lymph % (Auto) 22.3, [place] % (Auto) 5.6, Eos % (Auto) 4.8, Baso % (Auto) 0.4, Neut # (Auto) 4.7, Lymph # (Auto) 1.6, [place] # (Auto) 0.4, Eos # (Auto) 0.3, Baso # (Auto) 0.0, Sodium 137, Potassium 3.4 L, Chloride 114 H, Carbon Dioxide 20 L, A nion Gap 6.4, BUN 24 H, Creatinine 2.00 H, Estimated Creat Clear 21, Estimated GFR 24 L, Est GFR ( Amer) 29 L, Glucose 107 H, Calcium 9.0, Magnesium 1.6 D, Total Bilirubin 0.3, AST 31, ALT 19, Alkaline Phosphatase 96, Total Protein 5.9 L, Albumin 2.9 L, Globulin 3.0, Albumin/Globulin Ratio 1.0 L I & O for Last 24 hours: Intake & Output 04/23/24 04/24/24 04/25/24 04/26/24 23:59 23:59 23:59 23:59 Intake Total 540 / 540 540 / 740 1120 / 1120 405 / 405 Output Total 0 / 0 600 / 600 350 / 350 0 / 0 Balance 540 / 540 -60 / 140 770 / 770 405 / 405 Weight 57.153 kg 56.245 kg 57.561 kg 57.47 kg Constitutional Constitutional: no acute distress, average body habitus, chronically ill appearing and cooperative *Routine HEENT Exam Head: Present normocephalic Eye: Present EOMI and PERRL ENT: Present mucous membranes moist *Routine Neck Exam Neck: Present supple; Absent lymphadenopathy *Routine Respiratory Exam Respiratory: Present CTA bilaterally; Absent rhonchi, wheezes or crackles *Routine Cardiovascular Exam Cardiovascular: Present RRR *Routine Abdominal Exam Abdominal: Present soft and normoactive bowel sounds; Absent tenderness *Routine Rectal Exam Patient deferred: visual exam *Routine Exam Patient deferred: external exam *Routine Extremities Exam Extremities: Absent cyanosis, clubbing or edema *Routine Skin Exam Skin: Present intact and warm; Absent rash *Routine Neurological Exam Neurological: Present alert, oriented X3 and hemineglect; Absent altered mental status or moving all extremities Comments: Hemineglect of right side, right-sided upper extremity weakness 4/5. Full function left-sided upper and lower extremity. Right lower extremity with weakness 3/5. Results Data Completed and Pending Labs on day of discharge: Labs from last 24 hours 04/26/24 06:30 WBC 7.1 RBC 3.03 L Hgb 8.8 L Hct 26.7 L MCV 88.1 MCH 29.0 MCHC 33.0 RDW 13.2 Plt Count 190 MPV 11.4 H Neut % (Auto) 66.6 Lymph % (Auto) 22.3 Hamb[place] % (Auto) 5.6 Eos % (Auto) 4.8 Baso % (Auto) 0.4 Neut # (Auto) 4.7 Lymph # (Auto) 1.6 Hamb[place] # (Auto) 0.4 Eos # (Auto) 0.3 Baso # (Auto) 0.0 Sodium 137 Potassium 3.4 L Chloride 114 H Carbon Dioxide 20 L Anion Gap 6.4 BUN 24 H Creatinine 2.00 H Estimated Creat Clear 21 Estimated GFR 24 L Est GFR ( Amer) 29 L Glucose 107 H Calcium 9.0 Magnesium 1.6 D Total Bilirubin 0.3 AST 31 ALT 19 Alkaline Phosphatase 96 Total Protein 5.9 L Albumin 2.9 L Globulin 3.0 Albumin/Globulin Ratio 1.0 L DS: Diagnosis Discharge Diagnosis (1) CVA (cerebral vascular accident): Status: Acute Code(s): I63.9 - Cerebral infarction, unspecified (2) Carotid artery, internal, occlusion: Status: Acute Code(s): I65.29 - Occlusion and stenosis of unspecified carotid artery (3) Lung mass: Status: Acute Code(s): R91.8 - Other nonspecific abnormal finding of lung field (4) Diarrhea: Status: Acute Code(s): R19.7 - Diarrhea, unspecified Qualifiers: Diarrhea type: unspecified type Qualified Code(s): R19.7 - Diarrhea, unspecified (5) Declining functional status: Status: Acute Code(s): R53.81 - Other malaise (6) PAD (peripheral artery disease): Status: Chronic Code(s): I73.9 - Peripheral vascular disease, unspecified (7) HLD (hyperlipidemia): Status: Chronic Code(s): E78.5 - Hyperlipidemia, unspecified Qualifiers: Hyperlipidemia type: mixed hyperlipidemia Qualified Code(s): E78.2 - Mixed hyperlipidemia (8) Diabetes mellitus type 2, controlled: Status: Chronic Code(s): E11.9 - Type 2 diabetes mellitus without complications Qualifiers: Diabetes mellitus complication status: without complication Diabetes mellitus nursing home insulin use: without nursing home use Qualified Code(s): E11.9 - Type 2 diabetes mellitus without complications (9) Chronic kidney disease: Status: Chronic Code(s): N18.9 - Chronic kidney disease, unspecified Qualifiers: Chronic kidney disease stage: unspecified stage Qualified Code(s): N18.9 - Chronic kidney disease, unspecified (10) HTN (hypertension): Status: Chronic Code(s): I10 - Essential (primary) hypertension Qualifiers: Hypertension type: essential hypertension Qualified Code(s): I10 - Essential (primary) hypertension Meds Home Medications and Allergies Home Medications ?Medication ?Instructions ?Recorded ?Confirmed ?Type [id number]-minerals 1 tab PO DAILY 04/18/18 04/23/24 History (Multiple Vitamin, Womens tablet) aspirin 81 mg tablet,delayed 81 mg PO DAILY 30 days #30 tabs 04/26/24 Rx release atorvastatin 40 mg tablet 40 mg PO HS 30 days #30 tabs 04/26/24 Rx clopidogrel 75 mg tablet 75 mg PO DAILY 19 days #19 tabs 04/26/24 Rx glipizide 5 mg tablet 5 mg PO DAILY 30 days #30 tabs 04/26/24 Rx magnesium 200 mg tablet 200 mg PO BID #60 tabs 04/26/24 Rx potassium chloride 20 mEq 40 meq (2 x 20 mEq) PO DAILY 30 04/26/24 Rx tablet,extended days #60 tabs release(part/cryst) (Klor-Con M) sertraline 100 mg tablet 100 mg PO DAILY 30 days #30 tabs 04/26/24 Rx trazodone 50 mg tablet 50 mg PO HSP PRN Sleep 30 days #30 04/26/24 Rx tabs New Prescriptions to Start Prescriptions: aspirin Jason,Gen atorvastatin Jason,Gen clopidogrel Jason,Gen glipizide Jason,Gen magnesium Jason,Gen potassium chloride [Klor-Con M20] Jason,Gen sertraline Jason,Gen trazodone Gen Gomez Allergies Allergy/AdvReac Type Severity Reaction Status Date / Time latex (LATEX) Allergy Intermediate I-ITCHING Verified 11/29/22 09:57 Penicillins (PENICILLINS) Allergy Mild I-RASH Verified 11/29/22 09:57 Sulfa (Sulfonamide Allergy Unknown I-RASH Verified 11/29/22 09:57 Antibiotics) (SULFA (SULFONAMIDE ANTIBIOTICS)) Tetanus Vaccines and Toxoid Allergy Unknown Verified 11/29/22 09:57 (TETANUS VACCINES & TOXOID) Discharge Plan Disposition Patient Disposition: [facility] Condition: Fair Discharge Order Discharge Orders: Discharge Order (Routine); Ordered 04/26/24 Ordered By: Gen Gomez Follow up Plan Prescriptions/Medication Reconciliation: New trazodone 50 mg Tablet 50 mg PO HSP PRN (Reason: Sleep) 30 Days Qty: 30 0RF clopidogrel 75 mg Tablet 75 mg PO DAILY 19 Days Qty: 19 0RF aspirin 81 mg Tablet,Delayed Release (Dr/Ec) 81 mg PO DAILY 30 Days Qty: 30 0RF potassium chloride [Klor-Con M20] 20 mEq Tablet,Er Particles/Crystals 40 meq PO DAILY 30 Days Qty: 60 0RF magnesium 200 mg tablet 200 mg PO BID Qty: 60 0RF Continued Multiple Vitamin, Womens tablet 1 tab PO DAILY atorvastatin 40 mg tablet 40 mg PO HS 30 Days Qty: 30 0RF sertraline 100 mg tablet 100 mg PO DAILY 30 Days Qty: 30 0RF glipizide 5 mg tablet 5 mg PO DAILY 30 Days Qty: 30 0RF Discontinued lisinopril 10 MG tablet 10 mg PO DAILY tramadol 50 mg tablet 50 mg PO BIDP PRN (Reason: Moderate Pain (Scale Score 5-6)) Patient Comments: TAKE 1 TABLET BY MOUTH TWICE DAILY trazodone 100 mg tablet 200 mg PO HSP PRN (Reason: Sleep) Patient Comments: TAKE 2 TABLETS BY MOUTH ONCE DAILY AT BEDTIME NEEDED FOR 90 DAYS Problem Reconciliation Problems Reviewed?: Yes Patient Discharge Instructions ACTIVITY: Continue current activity DIET: continue same diet Patient Instructions: DI for Stroke-Ischemic Print Language: [place] Providers Primary Care Provider: Orly Liang Admit Provider: Maicol Lester Attending Provider: Maicol Lester
== END 2024-04-26 13:45 | DRG 65 ==
LOC: ER 12:12 → 2ND 13:05
PROVIDERS: Admitting Provider Student in an Organized Health Care Education/Training Program; Emergency Provider Emergency Medicine; PCP Family Medicine; Visit Provider Student in an Organized Health Care Education/Training Program
DX: I63.522 Cerebral infarction due to unspecified occlusion or stenosis of left anterior cerebral artery (principal); G81.91 Hemiplegia, unspecified affecting right dominant side; F17.210 Nicotine dependence, cigarettes, uncomplicated; I65.22 Occlusion and stenosis of left carotid artery; E11.22 Type 2 diabetes mellitus with diabetic chronic kidney disease; I25.10 Atherosclerotic heart disease of native coronary artery without angina pectoris; I12.9 Hypertensive chronic kidney disease with stage 1 through stage 4 chronic kidney disease, or unspecified chronic kidney disease; E78.5 Hyperlipidemia, unspecified; Z74.1 Need for assistance with personal care; R29.6 Repeated falls; N18.9 Chronic kidney disease, unspecified; R29.701 NIHSS score 1
CPT/HCPCS: 36415; 70450; 70496; 70498; 70551; 71250; 80053; 80320; 81001; 83735; 84484; 85025; 85610; 87086; 87506; 93005; 93306; 97110; 97162; 97166; 97530; 99285; J1650; J3475; J7120; Q9957; Q9967

== ENCOUNTER 2024-06-07 14:58 | Observation (INO) | payer MEDICARE, OTHER, SELFPAY ==
[2024-06-07] VITALS (8 sets, daily range): BP systolic 137–163; BP diastolic 50–72; PULSE 71–76; RESP 12–27; TEMP 36.6–36.7; O2SAT 94–97; BMI 23.6; BMI 24.1
--- NOTE | 2024-06-07 15:09 | CT_ITS ---
FINAL REPORT TECHNIQUE: Pre-and postcontrast images of the abdomen were performed by computed tomography. Extensive 3-D reconstruction images were performed. A CTA was performed. This study was performed with techniques to keep radiation doses as low as reasonably achievable (ALARA). Individualized dose reduction techniques using automated exposure control or adjustment of mA and/or kV according to the patient''s size were employed. CLINICAL HISTORY: GI bleed COMPARISON: 09/17/2021 FINDINGS: ABDOMEN: The lung bases are clear. Precontrast images demonstrate no evidence of nephrolithiasis. There is a calcified gallstone in the dependent portion of a contracted gallbladder. There is dense vascular calcification of the abdominal aorta and iliac vessels. There is minimal pericardial effusion measuring 7 mm. The liver parenchyma is homogeneous. The spleen measures in the upper limits of normal in size. The pancreas is normal. There is bilateral adrenal hyperplasia, similar to previous. Benign-appearing cysts are seen in both kidneys. Right renal cyst measures 4.5 x 4.0 cm, significantly increased in size. Streak artifact is seen from orthopedic hardware in the proximal right femur. CTA: There is moderate focal stenosis at the origin of the celiac axis measuring 50%. The SMA and BUTCH are patent. The renal arteries are patent bilaterally. There is 70% stenosis of the proximal renal arteries bilaterally. There is no evidence of active GI bleed. There is no evidence of high-grade stenosis of the iliac arteries. IMPRESSION: No evidence of active GI bleed. Gallstone in the gallbladder. Bilateral adrenal hyperplasia. Renal cysts. 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 Reviewed, Interpreted and Dictated by Emil Arroyo MD Transcribed by Tiana Rabago Authenticated and [facility]
--- NOTE | 2024-06-07 15:16 | ED_ITS ---
Discharge Plan Disposition Patient Disposition: Admitted Condition: Good Clinical Impressions Clinical Impression: Acute GI bleeding Discharge ED Provider: Charlotte Sykes General Adult HPI General Chief complaint: GI Bleed Stated complaint: GI bleed Time Seen by Provider: 06/07/24 15:02 Mode of Arrival: EMS Source of Information: EMS Limitations: No Limitations Description of Symptoms (Recalled from ER Triage Doc. by RN): Per EMS and assisted patient with no complaints. States that the patient had a large dark bloody bowel movement. History of Present Illness HPI narrative: This patient is a 78-year-old female with a history of CVA on aspirin and Plavix, GERD, hypertension, hyperlipidemia, CAD, type 2 diabetes presenting to the emergency department for evaluation with concern for GI bleed. Patient is currently at [facility] nursing facility for rehabilitation after recent admission for CVA, and staff there noted that she had a very large bloody bowel movement in her brief. It was melanotic. Patient has no stated complaints. She complains of no abdominal pain, nausea, vomiting, changes in bowel movements, or other concerns. She denies any history of GI bleed and also denies any prior history of endoscopy. Related Data Home Medications ?Medication ?Instructions ?Recorded ?Confirmed lactulose 10 gram/15 mL oral 30 ml PO DAILYP PRN Encephalopathy 06/07/24 06/07/24 solution magnesium 200 mg tablet 400 mg PO DAILY 06/07/24 06/07/24 Previous Rx's ?Medication ?Instructions ?Recorded aspirin 81 mg tablet,delayed 81 mg PO DAILY 30 days #30 tabs 04/26/24 release atorvastatin 40 mg tablet 40 mg PO HS 30 days #30 tabs 04/26/24 clopidogrel 75 mg tablet 75 mg PO DAILY 19 days #19 tabs 04/26/24 glipizide 5 mg tablet 5 mg PO DAILY 30 days #30 tabs 04/26/24 potassium chloride 20 mEq 40 meq (2 x 20 mEq) PO DAILY 30 04/26/24 tablet,extended days #60 tabs release(part/cryst) (Klor-Con M) sertraline 100 mg tablet 100 mg PO DAILY 30 days #30 tabs 04/26/24 trazodone 50 mg tablet 50 mg PO HSP PRN Sleep 30 days #30 04/26/24 tabs Allergies Allergy/AdvReac Type Severity Reaction Status Date / Time latex (LATEX) Allergy Intermediate I-ITCHING Verified 11/29/22 09:57 Penicillins (PENICILLINS) Allergy Mild I-RASH Verified 11/29/22 09:57 Sulfa (Sulfonamide Allergy Unknown I-RASH Verified 11/29/22 09:57 Antibiotics) (SULFA (SULFONAMIDE ANTIBIOTICS)) Tetanus Vaccines and Toxoid Allergy Unknown Verified 11/29/22 09:57 (TETANUS VACCINES & TOXOID) [facility] Disclaimer: The information contained in this section may have been updated after the patient was seen, as this information can be updated by other users. Medical History History of vaginal delivery Hemiparesis affecting right side as late effect of cerebrovascular accident Anemia Knee osteoarthritis GERD (gastroesophageal reflux disease) Abnormal radiologic finding of lung field Anxiety Pain in right wrist Right radial fracture Osteoarthritis History of TIA (transient ischemic attack) Elbow fracture, right Fracture of wrist TIA (transient ischemic attack) Bilateral carotid bruits PAD (peripheral artery disease) HLD (hyperlipidemia) CAD (coronary artery disease) HTN (hypertension) Carotid artery disease Surgical History History of cataract surgery Hx of shoulder surgery History of total knee arthroplasty History of left-sided carotid endarterectomy Family History Other No significant family history Social History Smoking Status: Never smoker second hand exposure: Yes alcohol intake: never counseling provided: none substance use type: denies use current occupational status: retired Travel in the last 8 weeks: None household members: spouse housing: house current occupational exposures/hazards: No caffeine: Yes Have you lived/traveled outside US in past 30 days?: No Contact w/someone who lives/traveled outside US past 30 days?: No Exposure to someone with infectious disease in past 14 days?: No Do you have a fever (greater than 100.4 F or 38 C)?: No Have you tested positive for COVID-19: No Exposed to someone with COVID-19 in past 14 days?: No Do you have a sore throat?: No Do you have a cough?: No Do you have any weakness?: No Are you experiencing any nausea/vomitting?: No Do you have any diarrhea?: No Are you experiencing any unusual bleeding?: No Do you have any muscle aches/pain?: No Do you have any abdominal pain?: No Are you experiencing loss of taste or smell?: No Other Medical History Have you received the Flu Vaccine for this season: No Have you received the Pneumonia Vaccine: No (unknown) ROS Obtained: Yes All systems reviewed & no additional complaints except as documented Physical Exam General General appearance: alert and in no apparent distress Head Head exam: atraumatic and normocephalic Eye Eye exam: Present normal appearance, PERRL and EOMI ENT ENT exam: Present normal exam, normal oropharynx, mucous membranes moist and normal external ear exam Neck Neck exam: Present normal inspection, full ROM and trachea midline; Absent tenderness Chest Chest inspection: Present normal inspection and symmetric chest wall rise; Absent tenderness Respiratory Respiratory exam: Present normal lung sounds bilaterally; Absent respiratory distress, wheezes, stridor or accessory muscle use Cardiovascular Cardiovascular exam: Present regular rate and normal rhythm Abdominal Exam Abdominal exam: Present soft; Absent distention, tenderness or guarding Extremities Exam Extremities exam: Present normal inspection, full ROM and normal capillary refill; Absent tenderness or edema Back Exam Back exam: Present normal inspection and full ROM; Absent tenderness Neurological Exam Neurological exam: Present alert, oriented X3, CN II-XII intact and normal gait; Absent motor sensory deficit Psychiatric Psychiatric exam: Present normal affect and normal mood Skin Skin exam: Present warm and dry Medical Decision Making Medical Records Medical records reviewed: Yes I reviewed the patient's medical records. Screening: Per USPSTF and CDC recommendations, given the prevalence of disease in our region, it is our hospital?s policy to screen for HIV and viral Hepatitis for all patients aged 18 and over and those with ongoing risk factors. Dank Inquiry Pt receiving controlled substance: No Vital Signs: 06/07/24 14:58 06/07/24 15:01 06/07/24 15:15 Temperature 97.8 F Temperature Source Oral Pulse Rate 76 75 Pulse Rate [Radial] 75 Respiratory Rate 18 27 H Blood Pressure 160/72 H 160/72 H Blood Pressure [Right Arm] 160/72 H Blood Pressure Mean [Right Arm] 101 Blood Pressure Source [Right Arm] Automatic Cuff Blood Pressure Position [Right Arm] Sitting 02 Sat by Pulse Oximetry 96 95 95 Oxygen Delivery Method Room Air Room Air 06/07/24 15:30 06/07/24 16:00 06/07/24 16:19 Temperature Temperature Source Pulse Rate 73 73 Pulse Rate [Radial] Respiratory Rate 21 12 Blood Pressure 163/70 H 137/50 L Blood Pressure [Right Arm] Blood Pressure Mean [Right Arm] Blood Pressure Source [Right Arm] Blood Pressure Position [Right Arm] 02 Sat by Pulse Oximetry 97 94 L Oxygen Delivery Method Room Air Room Air Room Air 06/07/24 16:30 Temperature Temperature Source Pulse Rate 71 Pulse Rate [Radial] Respiratory Rate 20 Blood Pressure 142/58 H Blood Pressure [Right Arm] Blood Pressure Mean [Right Arm] Blood Pressure Source [Right Arm] Blood Pressure Position [Right Arm] 02 Sat by Pulse Oximetry 95 Oxygen Delivery Method Room Air Lab Data Lab results reviewed: Yes I reviewed the patient's lab results. Lab Results 06/07/24 15:00: WBC 10.6, RBC 3.30 L, Hgb 9.4 L, Hct 29.7 L, MCV 90.0, MCH 28.5, MCHC 31.6 L, RDW 13.6, Plt Count 214, MPV 11.1 H, Neut % (Auto) 74.4, Lymph % (Auto) 17.8, [place] % (Auto) 5.2, Eos % (Auto) 1.9, Baso % (Auto) 0.3, Neut # (Auto) 7.9 H, Lymph # (Auto) 1.9, [place] # (Auto) 0.6, Eos # (Auto) 0.2, Baso # (Auto) 0.0, PT 10.4, INR 0.94, APTT 24.5, Sodium 137, Potassium 4.3, Chloride 108 H, Carbon Dioxide 20 L, Anion Gap 13.3, BUN 48 H, Creatinine 1.70 H, Estimated Creat Clear 24, Estimated GFR 29 L, Est GFR ( Amer) 35 L, G lucose 183 H, Calcium 9.8, Total Bilirubin 0.2, AST 28, ALT 18, Alkaline Phosphatase 95, Total Protein 6.7, Albumin 3.6, Globulin 3.1, Albumin/Globulin Ratio 1.2, Lipase 35 06/07/24 15:11: Lactate 1.4, Blood Type O Positive, Antibody Screen Negative 06/07/24 15:23: Stool Occult Blood Positive A 06/07/24 21:02 06/07/24 15:00 Orders (Tests/Meds): ED MEDICATIONS Generic Name Dose Route Start Last Admin Trade Name Freq PRN Reason Stop Dose Admin Atorvastatin Calcium 40 mg 06/07/24 21:00 06/07/24 21:32 Atorvastatin 40mg Tablet PO 07/07/24 20:59 40 mg HS FARIHA Administration Insulin Human Lispro 0 unit 06/08/24 06:00 Humalog 100 Units/Ml 10ml Vial (Ssi) SUBCUT 07/08/24 05:59 ACHS FARIHA Protocol Sertraline HCl 100 mg 06/08/24 09:00 Sertraline 100mg Tablet PO 07/08/24 08:59 DAILY FARIHA Trazodone HCl 50 mg 06/07/24 19:05 06/07/24 21:32 Trazodone 50mg Tablet PO 07/07/24 19:04 50 mg HSP PRN Administration Sleep Discontinued Medications Generic Name Dose Route Start Last Admin Trade Name Freq PRN Reason Stop Dose Admin Pantoprazole Sodium 80 mg/ 100 mls @ 100 mls/hr 06/07/24 15:11 06/07/24 15:29 Sodium Chloride IV 06/07/24 16:10 100 mls/hr ONCE ONE Administration Lactated Ringer's 1,000 mls @ 999 mls/hr 06/07/24 15:11 06/07/24 15:28 Lactated Ringer's 1000 Ml Bag IV 06/07/24 16:11 999 mls/hr .Q1H1M ONE Administration Iopamidol 80 ml 06/07/24 15:38 06/07/24 15:40 Iopamidol-370 (76%);100ml Bottle IV 06/07/24 15:39 80 ml ONCE ONE Administration Ondansetron HCl 4 mg 06/07/24 15:11 06/07/24 15:29 Ondansetron 4mg/2ml Vial IV 06/07/24 15:12 4 mg ONCE ONE Administration Sodium Chloride 10 ml 06/07/24 15:38 06/07/24 15:40 Sodium Chloride 0.9% 10ml Syr (Rad Only) IV 06/07/24 15:39 10 ml ONCE ONE Administration Sodium Chloride 50 ml 06/07/24 15:38 06/07/24 15:39 0.9 % Sodium Chloride 50 Ml Vial IV 06/07/24 15:39 50 ml ONCE ONE Administration ORDERS Category Date Time Status Type and Screen Stat BBK 06/07/24 15:[address] angio abdomen pelvis Stat Cat Scan 06/07/24 15:09 Completed Gastroenterology Consult [Consult to Gastroenterology] Cons 06/07/24 16:03 Active [CONS] Routine CBC w/Auto Diff [Complete Blood Count Auto Diff] Stat Lab 06/07/24 15:00 Completed CMP [Comprehensive Metabolic Panel] Stat Lab 06/07/24 15:00 Completed Complete Blood Count Auto Diff AMLAB Lab 06/08/24 06:00 Ordered Comprehensive Metabolic Panel AMLAB Lab 06/08/24 06:00 Ordered Hemoglobin and Hematocrit Routine Lab 06/07/24 21:02 Completed Lactic Acid Stat Lab 06/07/24 15:11 Completed Lipase Stat Lab 06/07/24 15:00 Completed Magnesium AMLAB Lab 06/08/24 06:00 Ordered Occult Blood,Stool Stat Lab 06/07/24 15:23 Completed PT INR [Prothrombin Time INR] Stat Lab 06/07/24 15:00 Completed PTT [Activated Partial Thrombo Time] Stat Lab 06/07/24 15:00 Completed Medical Decision Narrative: In summary, this patient is a 78-year-old female presenting to the Emergency Department for evaluation of large bloody bowel movement. Differential diagnoses considered include but are not limited to upper GI bleed, lower GI bleed, symptomatic anemia, hemorrhagic shock, diverticular bleed, peptic ulcer disease. Ruling out the most morbid conditions drove assessment. It should be noted patient's history includes CVA, CAD on aspirin and Plavix, hypertension, hyperlipidemia, diabetes which may or may not be at goal therapy. This complicates all aspects of care by increasing patient's risk for morbidity. I reviewed patient's past medical records and noted admission in April for CVA and inability to care for self at home with subsequent discharge to nursing facility for rehabilitation. On exam, the patient is lying in bed in no acute distress with reassuring vitals on cardiac telemetry. She has no concerns or complaints and abdominal exam is benign. Workup included CBC, CMP, lactic, PT, PTT, stool occult blood, CT angiogram of the abdomen and pelvis. She was given a bolus of IV fluids as well as IV pantoprazole.. I independently interpreted CT angiogram prior to the radiologist read and noted no obvious active extravasation of contrast, no obvious free air. Please see their read for final interpretation. Labs were obtained that demonstrated chronic anemia, chronic elevation in creatinine. Labs overall relatively unremarkable, lactic acid negative. Patient does have a positive stool occult On reassessment, patient is resting comfortably. She remains hemodynamically stable. I had an interactive discussion with gastroenterology Dr. Fregoso who wants to scope the patient tomorrow. He cannot do it today as she had lunch today prior to arrival. I then had an interactive discussion with the hospitalist who admitted the patient in stable condition for further evaluation and management. Critical Care Critical Care Time Critical Care Time: Yes Attestation: On 06/07/24, the high probability of a clinically significant, sudden or life threatening deterioration of the following system(s) required my full and direct attention, intervention and personal management. The time I documented below is in addition to time spent performing reported procedures but includes the following listed in this critical care notation. Total Time Total Critical Care Time: 30
[2024-06-07 15:17] LABS: Basophils % 0.3 % (0.1-2.0); Eosinophils # 0.2 K/mm3 (0.0-0.4); Eosinophils % 1.9 % (0.1-12.0); Hematocrit 29.7 % (37.0-47.0); Hemoglobin 9.4 g/dL (12.2-16.2); Lymphocytes # 1.9 K/mm3 (0.7-4.5); Lymphocytes % 17.8 % (10-50); Mean Corpuscular HGB Conc 31.6 g/dL (31.8-35.4); Mean Corpuscular Hemoglobin 28.5 pg (27.0-31.2); Mean Platelet Volume 11.1 fl (7.4-10.4); Monocytes # 0.6 K/mm3 (0.1-1.0); Monocytes % 5.2 % (1.7-9.3); Neutrophils # 7.9 K/mm3 (1.8-7.8); Neutrophils % 74.4 % (37.0-80.0); Platelet Count 214 K/mm3 (142-424); Red Cell Distribution Width 13.6 % (11.5-17.5); White Blood Count 10.6 K/mm3 (4.8-10.8)
[2024-06-07 15:24] LABS: Lipase 35 U/L (23-300)
[2024-06-07 15:25] LABS: Alanine Aminotransferase 18 U/L (12-78); Albumin Level 3.6 g/dl (3.5-5.0); Albumin/Globulin Ratio 1.2 (1.1-1.8); Alkaline Phosphatase 95 U/L (38-126); Anion Gap 13.3 mEq/L (5-15); Aspartate Amino Transferase 28 U/L (14-36); Bilirubin,Total 0.2 mg/dl (0.2-1.3); Blood Urea Nitrogen 48 mg/dl (7-17); Calcium 9.8 mg/dl (8.4-10.2); Carbon Dioxide 20 mmol/L (22.0-30.0); Chloride 108 mmol/L (98-107); Creatinine Clearance Estimated 24 mL/min (50-200); Estimated Glomerular Filt Rate 29 ml/min (>60); GFR (African American) 35 ML/MIN (>60); Globulin 3.1 g/dL (1.3-3.2); Glucose 183 mg/dl (74-100); Potassium 4.3 mmoL/L (3.5-5.1); Sodium 137 mmol/L (136-145); Total Protein,Serum 6.7 g/dl (6.3-8.2)
[2024-06-07 15:26] LABS: Activated Partial Thrombo Time 24.5 seconds (22.5-28.5); INR 0.94 (0.9-1.1); Prothrombin Time 10.4 seconds (9.2-12.1)
[2024-06-07] MEDS: LACTATED RINGERS 1000ML 1,000 ML 999 ML IV (15:28)
[2024-06-07] MEDS: ONDANSETRON 4MG/2ML VIAL 4 MG IV (15:29)
[2024-06-07] MEDS: PANTOPRAZOLE SODIUM 80 MG in 0.9 % SODIUM CHLORIDE 100 ML 100 MG IV (15:29)
[2024-06-07 15:30] LABS: Lactic Acid 1.4 mmol/L (0.7-2.1)
[2024-06-07] MEDS: 0.9 % SODIUM CHLORIDE 50 ML VIAL IV (15:39)
[2024-06-07] MEDS: SODIUM CHLORIDE 0.9% 10ML SYR (RAD ONLY) 10 ML IV (15:40)
[2024-06-07] MEDS: IOPAMIDOL-370 (76%);100ML BOTTLE 80 ML IV (15:40)
--- NOTE | 2024-06-07 15:44 | PC.NURSE ---
PT ARRIVED BACK TO ROOM FROM CT
[2024-06-07 15:57] LABS: Occult Blood,Stool Positive (Negative)
--- NOTE | 2024-06-07 16:00 | PC.NURSE ---
dr contreras is speaking to dr farooq at this time
--- NOTE | 2024-06-07 16:04 | PC.NURSE ---
dr contreras is speaking to dr ellington at this time
--- NOTE | 2024-06-07 16:13 | PC.NURSE ---
supervisor personnel clerks aware of admission.
--- NOTE | 2024-06-07 16:27 | PC.NURSE ---
Report called to KAHLIL Oswald on Med Surg.
--- NOTE | 2024-06-07 17:20 | EXP.GE.CONS ---
History of Present Illness *Admission Date: 06/07/24 *Reason for visit:: Melena *History of present illness: Patient is a 78-year-old female with a history of CVA on aspirin and Plavix. She does have a history of GERD. She presented to ER from the residential with possible GI bleed. Staff noted very large bloody bowel movement with melena. She has no abdominal pain, nausea or vomiting. [facility] Disclaimer: The information contained in this section may have been updated after the patient was seen, as this information can be updated by other users. Medical History History of vaginal delivery Hemiparesis affecting right side as late effect of cerebrovascular accident Anemia Knee osteoarthritis GERD (gastroesophageal reflux disease) Abnormal radiologic finding of lung field Anxiety Pain in right wrist Right radial fracture Osteoarthritis History of TIA (transient ischemic attack) Elbow fracture, right Fracture of wrist TIA (transient ischemic attack) Bilateral carotid bruits PAD (peripheral artery disease) HLD (hyperlipidemia) CAD (coronary artery disease) HTN (hypertension) Carotid artery disease Surgical History History of cataract surgery Hx of shoulder surgery History of total knee arthroplasty History of left-sided carotid endarterectomy Family History (Updated 06/07/24 @ 17:02 by Cathryn Titus RN) Other No significant family history Social History (Updated 06/07/24 @ 17:02 by Cathryn Titus RN) Smoking Status: Never smoker second hand exposure: Yes alcohol intake: never counseling provided: none substance use type: denies use current occupational status: retired Travel in the last 8 weeks: None household members: spouse housing: house current occupational exposures/hazards: No caffeine: Yes Have you lived/traveled outside [place] in past 30 days?: No Contact w/someone who lives/traveled outside [place] past 30 days?: No Exposure to someone with infectious disease in past 14 days?: No Do you have a fever (greater than 100.4 F or 38 C)?: No Have you tested positive for COVID-19: No Exposed to someone with COVID-19 in past 14 days?: No Do you have a sore throat?: No Do you have a cough?: No Do you have any weakness?: No Are you experiencing any nausea/vomitting?: No Do you have any diarrhea?: No Are you experiencing any unusual bleeding?: No Do you have any muscle aches/pain?: No Do you have any abdominal pain?: No Are you experiencing loss of taste or smell?: No Meds Home Medications and Allergies Home Medications ?Medication ?Instructions ?Recorded ?Confirmed ?Type aspirin 81 mg tablet,delayed 81 mg PO DAILY 30 days #30 tabs 04/26/24 06/07/24 Rx release atorvastatin 40 mg tablet 40 mg PO HS 30 days #30 tabs 04/26/24 06/07/24 Rx clopidogrel 75 mg tablet 75 mg PO DAILY 19 days #19 tabs 04/26/24 06/07/24 Rx glipizide 5 mg tablet 5 mg PO DAILY 30 days #30 tabs 04/26/24 06/07/24 Rx potassium chloride 20 mEq 40 meq (2 x 20 mEq) PO DAILY 30 04/26/24 06/07/24 Rx tablet,extended days #60 tabs release(part/cryst) (Klor-Con M) sertraline 100 mg tablet 100 mg PO DAILY 30 days #30 tabs 04/26/24 06/07/24 Rx trazodone 50 mg tablet 50 mg PO HSP PRN Sleep 30 days #30 04/26/24 06/07/24 Rx tabs lactulose 10 gram/15 mL oral 30 ml PO DAILYP PRN Encephalopathy 06/07/24 06/07/24 History solution magnesium 200 mg tablet 400 mg PO DAILY 06/07/24 06/07/24 History New Prescriptions to Start Prescriptions: Allergies Allergy/AdvReac Type Severity Reaction Status Date / Time latex (LATEX) Allergy Intermediate I-ITCHING Verified 11/29/22 09:57 Penicillins (PENICILLINS) Allergy Mild I-RASH Verified 11/29/22 09:57 Sulfa (Sulfonamide Allergy Unknown I-RASH Verified 11/29/22 09:57 Antibiotics) (SULFA (SULFONAMIDE ANTIBIOTICS)) Tetanus Vaccines and Toxoid Allergy Unknown Verified 11/29/22 09:57 (TETANUS VACCINES & TOXOID) Exam (Inpt) Vital signs and Labs for Last 24 Hours: Temp Pulse Resp BP Pulse Ox O2 Del Method 98.1 F 73 20 160/70 H 95 Room Air 06/07/24 17:02 06/07/24 17:02 06/07/24 16:30 06/07/24 17:02 06/07/24 17:02 06/07/24 17:02 Laboratory Results - last 24 hr 06/07/24 15:00: WBC 10.6, RBC 3.30 L, Hgb 9.4 L, Hct 29.7 L, MCV 90.0, MCH 28.5, MCHC 31.6 L, RDW 13.6, Plt Count 214, MPV 11.1 H, Neut % (Auto) 74.4, Lymph % (Auto) 17.8, [place] % (Auto) 5.2, Eos % (Auto) 1.9, Baso % (Auto) 0.3, Neut # (Auto) 7.9 H, Lymph # (Auto) 1.9, [place] # (Auto) 0.6, Eos # (Auto) 0.2, Baso # (Auto) 0.0, PT 10.4, INR 0.94, APTT 24.5, Sodium 137, Potassium 4.3, Chloride 108 H, Carbon Dioxide 20 L, Anion Gap 13.3, BUN 48 H, Creatinine 1.70 H, Estimated Creat Clear 24, Estimated GFR 29 L, Est GFR ( Amer) 35 L, Glucose 183 H, Calcium 9.8, Total Bilirubin 0.2, AST 28, ALT 18, Alkaline Phosphatase 95, Total Protein 6.7, Albumin 3.6, Globulin 3.1, Albumin/Globulin Ratio 1.2, Lipase 35 06/07/24 15:11: Lactate 1.4, Blood Type O Positive, Antibody Screen Negative 06/07/24 15:23: Stool Occult Blood Positive A I & O for Labs for Last 24 Hours: Intake & Output 06/04/24 06/05/24 06/06/24 06/07/24 23:59 23:59 23:59 23:59 Weight 123 lb Results Labs 06/07/24 15:00 06/07/24 15:00 Labs: Laboratory Results - last 24 hr 06/07/24 15:00: WBC 10.6, RBC 3.30 L, Hgb 9.4 L, Hct 29.7 L, MCV 90.0, MCH 28.5, MCHC 31.6 L, RDW 13.6, Plt Count 214, MPV 11.1 H, Neut % (Auto) 74.4, Lymph % (Auto) 17.8, [place] % (Auto) 5.2, Eos % (Auto) 1.9, Baso % (Auto) 0.3, Neut # (Auto) 7.9 H, Lymph # (Auto) 1.9, [place] # (Auto) 0.6, Eos # (Auto) 0.2, Baso # (Auto) 0.0, PT 10.4, INR 0.94, APTT 24.5, Sodium 137, Potassium 4.3, Chloride 108 H, Carbon Dioxide 20 L, Anion Gap 13.3, BUN 48 H, Creatinine 1.70 H, Estimated Creat Clear 24, Estimated GFR 29 L, Est GFR ( Amer) 35 L, Glucose 183 H, Calcium 9.8, Total Bilirubin 0.2, AST 28, ALT 18, Alkaline Phosphatase 95, Total Protein 6.7, Albumin 3.6, Globulin 3.1, Albumin/Globulin Ratio 1.2, Lipase 35 06/07/24 15:11: Lactate 1.4, Blood Type O Positive, Antibody Screen Negative 06/07/24 15:23: Stool Occult Blood Positive A Assessment and Plan *Assessment and plan (1) Melena: Status: Acute Category: Medical Code(s): K92.1 - Melena (2) Acute GI bleeding: Status: Acute Category: Medical Code(s): K92.2 - Gastrointestinal hemorrhage, unspecified Plan 1. Melena/acute GI bleed. The patient is hemodynamically stable. Hemoglobin hematocrit are 9.4 and 29.7 (unchanged from prior labs on 04/26/2024). I would recommend EGD. We will give her hydration and plan in the morning. I have spoken with Vahid Meek MD who will plan to do the endoscopy tomorrow. I will check iron studies. She is Hemoccult positive.
--- NOTE | 2024-06-07 17:52 | PC.NURSE ---
PT RESTING SUPINE IN BED. A&OX4. DNR/DNI SIGNED BY AND ON THE CHART. TOLERATING RA WITH SATS >90%. GI EVALUATING AND PT TO HAVE SCOPE IN THE MORNING. CONSENT SIGNED AND ON THE CHART. PT HAS NOT HAD ANOTHER BM SINCE BEING IN THE HOSPITAL. PT HAS NO COMPLAINTS OF PAIN. ABDOMEN SOFT AND NONTENDER. NO NEEDS AT THIS TIME. CALL LIGHT WITHIN REACH.
[2024-06-07 18:16] LABS: Iron 55 ug/dL (37-170)
[2024-06-07 18:25] LABS: Total Iron Binding Capacity 222 ug/dL (265-497)
[2024-06-07 18:54] LABS: Ferritin 157 ng/ml (11.1-264)
--- NOTE | 2024-06-07 19:03 | P.HP_ITS ---
History of Present Illness *Admission Date: 06/07/24 *Reason for visit:: Bloody bowel movement *History of present illness: Mrs. Arroyo is a 78-year-old female who was recently admitted in April for CVA. Started on dual antiplatelet therapy. Was discharged to senior living for rehab at that time. History also complicated by GERD, hypertension, hyperlipidemia, CAD, diabetes. She presented to the ER via EMS after having a large dark bloody bowel movement at her senior living this morning. She is currently undergoing therapy at [facility]. Patient denies any nausea, vomiting, shortness of breath, chest pain, weakness. Workup in the ER with hemoglobin of 9.4. Concern for GI bleed. Medicine consulted for admission and further management. GI consulted to assist with workup. On arrival to the floor, patient is hemodynamically stable. Has any nausea or vomiting. Does have occasional abdominal pain/heartburn. No further bowel movement since admission. Stable on room air. [facility] Disclaimer: The information contained in this section may have been updated after the patient was seen, as this information can be updated by other users. Medical History History of vaginal delivery Hemiparesis affecting right side as late effect of cerebrovascular accident Anemia Knee osteoarthritis GERD (gastroesophageal reflux disease) Abnormal radiologic finding of lung field Anxiety Pain in right wrist Right radial fracture Osteoarthritis History of TIA (transient ischemic attack) Elbow fracture, right Fracture of wrist TIA (transient ischemic attack) Bilateral carotid bruits PAD (peripheral artery disease) HLD (hyperlipidemia) CAD (coronary artery disease) HTN (hypertension) Carotid artery disease Surgical History History of cataract surgery Hx of shoulder surgery History of total knee arthroplasty History of left-sided carotid endarterectomy Family History Other No significant family history Social History Smoking Status: Never smoker second hand exposure: Yes alcohol intake: never counseling provided: none substance use type: denies use current occupational status: retired Travel in the last 8 weeks: None household members: spouse housing: house current occupational exposures/hazards: No caffeine: Yes Have you lived/traveled outside US in past 30 days?: No Contact w/someone who lives/traveled outside US past 30 days?: No Exposure to someone with infectious disease in past 14 days?: No Do you have a fever (greater than 100.4 F or 38 C)?: No Have you tested positive for COVID-19: No Exposed to someone with COVID-19 in past 14 days?: No Do you have a sore throat?: No Do you have a cough?: No Do you have any weakness?: No Are you experiencing any nausea/vomitting?: No Do you have any diarrhea?: No Are you experiencing any unusual bleeding?: No Do you have any muscle aches/pain?: No Do you have any abdominal pain?: No Are you experiencing loss of taste or smell?: No Other Medical History Have you received the Flu Vaccine for this season: Yes Have you received the Pneumonia Vaccine: Yes Review of Systems Review of Systems Review of systems (narrative): 14 point review of systems performed, pertinent positives and negatives as per HPI Meds Home Medications and Allergies Home Medications ?Medication ?Instructions ?Recorded ?Confirmed ?Type aspirin 81 mg tablet,delayed 81 mg PO DAILY 30 days #30 tabs 04/26/24 06/07/24 Rx release atorvastatin 40 mg tablet 40 mg PO HS 30 days #30 tabs 04/26/24 06/07/24 Rx clopidogrel 75 mg tablet 75 mg PO DAILY 19 days #19 tabs 04/26/24 06/07/24 Rx glipizide 5 mg tablet 5 mg PO DAILY 30 days #30 tabs 04/26/24 06/07/24 Rx potassium chloride 20 mEq 40 meq (2 x 20 mEq) PO DAILY 30 04/26/24 06/07/24 Rx tablet,extended days #60 tabs release(part/cryst) (Klor-Con M) sertraline 100 mg tablet 100 mg PO DAILY 30 days #30 tabs 04/26/24 06/07/24 Rx trazodone 50 mg tablet 50 mg PO HSP PRN Sleep 30 days #30 04/26/24 06/07/24 Rx tabs lactulose 10 gram/15 mL oral 30 ml PO DAILYP PRN Encephalopathy 06/07/24 06/07/24 History solution magnesium 200 mg tablet 400 mg PO DAILY 06/07/24 06/07/24 History New Prescriptions to Start Prescriptions: Allergies Allergy/AdvReac Type Severity Reaction Status Date / Time latex (LATEX) Allergy Intermediate I-ITCHING Verified 11/29/22 09:57 Penicillins (PENICILLINS) Allergy Mild I-RASH Verified 11/29/22 09:57 Sulfa (Sulfonamide Allergy Unknown I-RASH Verified 11/29/22 09:57 Antibiotics) (SULFA (SULFONAMIDE ANTIBIOTICS)) Tetanus Vaccines and Toxoid Allergy Unknown Verified 11/29/22 09:57 (TETANUS VACCINES & TOXOID) Exam Data for Last 24 hours Vital signs and Labs for Last 24 Hours: Temp Pulse Resp BP Pulse Ox O2 Del Method 98.1 F 73 20 160/70 H 95 Room Air 06/07/24 17:02 06/07/24 17:02 06/07/24 16:30 06/07/24 17:02 06/07/24 17:02 06/07/24 18:49 Laboratory Results - last 24 hr 06/07/24 15:00: WBC 10.6, RBC 3.30 L, Hgb 9.4 L, Hct 29.7 L, MCV 90.0, MCH 28.5, MCHC 31.6 L, RDW 13.6, Plt Count 214, MPV 11.1 H, Neut % (Auto) 74.4, Lymph % (Auto) 17.8, Sac % (Auto) 5.2, Eos % (Auto) 1.9, Baso % (Auto) 0.3, Neut # (Auto) 7.9 H, Lymph # (Auto) 1.9, Sac # (Auto) 0.6, Eos # (Auto) 0.2, Baso # (Auto) 0.0, PT 10.4, INR 0.94, APTT 24.5, Sodium 137, Potassium 4.3, Chloride 108 H, Carbon Dioxide 20 L, Anion Gap 13.3, BUN 48 H, Creatinine 1.70 H, Estimated Creat Clear 24, Estimated GFR 29 L, Est GFR ( Amer) 35 L, Glucose 183 H, Calcium 9.8, Total Bilirubin 0.2, AST 28, ALT 18, Alkaline Phosp hatase 95, Total Protein 6.7, Albumin 3.6, Globulin 3.1, Albumin/Globulin Ratio 1.2, Lipase 35 06/07/24 15:11: Lactate 1.4, Blood Type O Positive, Antibody Screen Negative 06/07/24 15:23: Stool Occult Blood Positive A 06/07/24 17:47: Iron 55, TIBC 222 L, Iron Saturation 24.71859, Ferritin 157 I & O for Last 24 hours: Intake & Output 06/04/24 06/05/24 06/06/24 06/07/24 23:59 23:59 23:59 23:59 Output Total 0 / 0 Balance 0 / 0 Weight 55.792 kg Constitutional Constitutional: no acute distress, average body habitus, chronically ill appearing and cooperative *Routine HEENT Exam Head: Present normocephalic Eye: Present EOMI and PERRL ENT: Present mucous membranes moist *Routine Neck Exam Neck: Present supple; Absent lymphadenopathy *Routine Respiratory Exam Respiratory: Present CTA bilaterally; Absent rhonchi, wheezes or crackles *Routine Cardiovascular Exam Cardiovascular: Present RRR *Routine Abdominal Exam Abdominal: Present soft and normoactive bowel sounds; Absent tenderness or distended *Routine Rectal Exam Rectal:: deferred *Routine Genitalia Exam Genitalia:: deferred *Routine Extremities Exam Extremities: Absent cyanosis, clubbing or edema Comments: Right lower extremity strength 1/5. Right upper extremity 4/5. Decree sensation in right leg compared to left. *Routine Skin Exam Skin: Present intact and warm; Absent rash *Routine Neurological Exam Neurological: Present alert; Absent altered mental status Comments: Right sided weakness, moving left side. Oriented to person and place Assessment and Plan *Assessment and plan (1) Melena: Status: Acute Category: Medical Code(s): K92.1 - Melena (2) Acute GI bleeding: Status: Acute Category: Medical Code(s): K92.2 - Gastrointestinal hemorrhage, unspecified (3) Anemia: Status: Acute Category: Medical Code(s): D64.9 - Anemia, unspecified (4) Hemiparesis affecting right side as late effect of cerebrovascular accident: Status: Acute Category: Medical Code(s): I69.351 - Hemiplegia and hemiparesis following cerebral infarction affecting right dominant side (5) CVA (cerebral vascular accident): Status: Chronic Category: Medical Code(s): I63.9 - Cerebral infarction, unspecified (6) GERD (gastroesophageal reflux disease): Status: Acute Category: Medical Code(s): K21.9 - Gastro-esophageal reflux disease without esophagitis (7) Anxiety: Status: Acute Category: Medical Code(s): F41.9 - Anxiety disorder, unspecified (8) Declining functional status: Status: Acute Category: Medical Code(s): R53.81 - Other malaise (9) PAD (peripheral artery disease): Status: Chronic Category: Medical Code(s): I73.9 - Peripheral vascular disease, unspecified (10) Diabetes mellitus type 2, controlled: Status: Chronic Qualifiers: Diabetes mellitus complication status: without complication Diabetes mellitus penitentiary insulin use: without intermediate card tender use Qualified Code(s): E11.9 - Type 2 diabetes mellitus without complications Category: Medical Code(s): E11.9 - Type 2 diabetes mellitus without complications (11) Chronic kidney disease: Status: Chronic Qualifiers: Chronic kidney disease stage: unspecified stage Qualified Code(s): N18.9 - Chronic kidney disease, unspecified Category: Medical Code(s): N18.9 - Chronic kidney disease, unspecified (12) CAD (coronary artery disease): Status: Chronic Qualifiers: Associated angina: without angina Coronary Disease-Associated Artery/Lesion type: [place] artery [place] vs. transplanted heart: [place] heart Qualified Code(s): I25.10 - Atherosclerotic heart disease of [place] coronary artery without angina pectoris Category: Medical Code(s): I25.10 - Atherosclerotic heart disease of [place] coronary artery without angina pectoris (13) HTN (hypertension): Status: Chronic Qualifiers: Hypertension type: essential hypertension Qualified Code(s): I10 - Essential (primary) hypertension Category: Medical Code(s): I10 - Essential (primary) hypertension Plan Flor Arroyo is a 78-year-old female with a medical history significant for chronic tobacco smoker, type 2 diabetes, TIA, hypertension, CAD, carotid artery disease, with a recent CVA in April. She has been at nursing facility for rehab since. Presented after having large dark bowel movement today at her nursing facility. Workup in the ER concerning for anemia. Discussed case with ER physician, request admission for serial H&H and evaluation by GI for possible upper GI bleed. I agreed to admit for further care. Patient has been on dual antiplatelet therapy since the end of April. Currently hemodynamically stable. Denies any nausea or vomiting. Problems addressed as follows: Suspected upper GI bleed Melena Anemia -Presented with melenic stool. Found to be anemic with hemoglobin 9.4. Iron studies with iron level of 55, saturation 24%. Will hold on iron infusion. -Initiate pantoprazole 40 mg IV twice daily -N.p.o. at midnight, anticipate scope in the morning by surgery. Discussed case with surgeon, will plan for EGD -Transfusion threshold hemoglobin less than 7. Repeat CBC, CMP, magnesium ordered for the morning. #Acute/subacute frontoparietal stroke April 2024 #Right lower, upper extremity weakness #Functional decline, inability to take care of herself #Recurrent falls -CT in April showed acute/subacute left frontoparietal stroke, neck CTA shows complete occlusion of the cervical left ICA and moderate stenosis of the proximal right ICA. -Has been taking dual antiplatelet therapy since. Stable deficits in right side -No new complaints today. -MRI obtained in April that confirmed acute and subacute left frontotemporal stroke -Currently residing at [facility] for therapy -Discontinue dual antiplatelet therapy due to GI bleed and patient is outside the 21-day window post diagnosis #Type 2 diabetes -Sliding scale insulin with fingersticks ACHS. Chronic conditions: #Hyperlipidemia #Hypertension Depression ? Continue high intensity statin. Continue Zoloft 100 mg daily and trazodone 50 mg nightly for mood and sleep. DNR/DNI Full liquid diet till midnight, n.p.o. thereafter Holding anticoagulation due to GI bleed
[2024-06-07 21:08] LABS: Hematocrit 25.3 % (37.0-47.0)
[2024-06-07 21:24] LABS: Hemoglobin 8.2 g/dL (12.2-16.2)
[2024-06-07] MEDS: TRAZODONE 50MG TABLET 50 MG PO (21:32)
[2024-06-07] MEDS: ATORVASTATIN 40MG TABLET 40 MG PO (21:32)
[2024-06-08] VITALS (16 sets, daily range): BP systolic 77–150; BP diastolic 34–90; PULSE 50–89; RESP 15–17; TEMP 36.4–36.8; O2SAT 90–97; BMI 24.3
--- NOTE | 2024-06-08 04:15 | PC.NURSE ---
Pt A&OX3 and has tolerated room air. Lung sounds clear and bowel sounds active. Pt has not had any BM this shift. She has remained NPO since midnight for procedure today. Currently resting in bed with call light within reach.
[2024-06-08 06:11] LABS: POC Glucose,Bedside 73 (70-110)
[2024-06-08 06:24] LABS: Basophils % 0.2 % (0.1-2.0); Eosinophils # 0.4 K/mm3 (0.0-0.4); Hematocrit 26.6 % (37.0-47.0); Hemoglobin 8.7 g/dL (12.2-16.2); Lymphocytes # 1.3 K/mm3 (0.7-4.5); Lymphocytes % 14.9 % (10-50); Mean Corpuscular HGB Conc 32.7 g/dL (31.8-35.4); Mean Corpuscular Hemoglobin 29.5 pg (27.0-31.2); Mean Corpuscular Volume 90.2 fl (81-99); Mean Platelet Volume 10.9 fl (7.4-10.4); Monocytes # 0.4 K/mm3 (0.1-1.0); Monocytes % 4.5 % (1.7-9.3); Neutrophils # 6.5 K/mm3 (1.8-7.8); Neutrophils % 74.8 % (37.0-80.0); Platelet Count 188 K/mm3 (142-424); Red Blood Count 2.95 M/mm3 (4.20-5.40); Red Cell Distribution Width 13.9 % (11.5-17.5); White Blood Count 8.7 K/mm3 (4.8-10.8)
[2024-06-08 06:48] LABS: Albumin Level 3.1 g/dl (3.5-5.0); Chloride 111 mmol/L (98-107); Sodium 139 mmol/L (136-145)
[2024-06-08 06:51] LABS: Alanine Aminotransferase 15 U/L (12-78); Albumin/Globulin Ratio 1.1 (1.1-1.8); Alkaline Phosphatase 96 U/L (38-126); Aspartate Amino Transferase 24 U/L (14-36); Bilirubin,Total 0.2 mg/dl (0.2-1.3); Blood Urea Nitrogen 42 mg/dl (7-17); Calcium 9.8 mg/dl (8.4-10.2); Carbon Dioxide 20 mmol/L (22.0-30.0); Creatinine Clearance Estimated 22 mL/min (50-200); Estimated Glomerular Filt Rate 26 ml/min (>60); GFR (African American) 31 ML/MIN (>60); Globulin 2.8 g/dL (1.3-3.2); Glucose 61 mg/dl (74-100); Magnesium 1.8 mg/dl (1.6-2.3); Total Protein,Serum 5.9 g/dl (6.3-8.2)
--- NOTE | 2024-06-08 06:56 | P.CONS_ITS ---
History of Present Illness *Admission Date: 06/07/24 *Reason for visit:: GI bleeding *History of present illness: Patient is a 78-year-old female with history of cerebrovascular disease with previous left carotid endarterectomy, history of tobacco abuse, prior history of ulcer disease. I had actually seen the patient in 2015 for gallbladder and upper endoscopy. She had upper endoscopy performed as an inpatient which revealed a large duodenal ulcer in 2015 and follow-up endoscopy on 05/18/2016 revealed this to be completely healed. She had recently, in April 2024, had left hemispheric CVA and has been on dual antiplatelet therapy with aspirin and Plavix. She presented to the emergency department after having a large dark bloody bowel movement at the senior living ([facility]). Hemoglobin was 9.4. She was admitted for inpatient management. Arrangements were made for upper endoscopy. [facility] Disclaimer: The information contained in this section may have been updated after the patient was seen, as this information can be updated by other users. Medical History History of vaginal delivery Hemiparesis affecting right side as late effect of cerebrovascular accident Anemia Knee osteoarthritis GERD (gastroesophageal reflux disease) Abnormal radiologic finding of lung field Anxiety Pain in right wrist Right radial fracture Osteoarthritis History of TIA (transient ischemic attack) Elbow fracture, right Fracture of wrist TIA (transient ischemic attack) Bilateral carotid bruits PAD (peripheral artery disease) HLD (hyperlipidemia) CAD (coronary artery disease) HTN (hypertension) Carotid artery disease Surgical History History of cataract surgery Hx of shoulder surgery History of total knee arthroplasty History of left-sided carotid endarterectomy Family History Other No significant family history Social History Smoking Status: Never smoker second hand exposure: Yes alcohol intake: never counseling provided: none substance use type: denies use current occupational status: retired Travel in the last 8 weeks: None household members: spouse housing: house current occupational exposures/hazards: No caffeine: Yes Have you lived/traveled outside US in past 30 days?: No Contact w/someone who lives/traveled outside US past 30 days?: No Exposure to someone with infectious disease in past 14 days?: No Do you have a fever (greater than 100.4 F or 38 C)?: No Have you tested positive for COVID-19: No Exposed to someone with COVID-19 in past 14 days?: No Do you have a sore throat?: No Do you have a cough?: No Do you have any weakness?: No Are you experiencing any nausea/vomitting?: No Do you have any diarrhea?: No Are you experiencing any unusual bleeding?: No Do you have any muscle aches/pain?: No Do you have any abdominal pain?: No Are you experiencing loss of taste or smell?: No Meds Home Medications and Allergies Home Medications ?Medication ?Instructions ?Recorded ?Confirmed ?Type aspirin 81 mg tablet,delayed 81 mg PO DAILY 30 days #30 tabs 04/26/24 06/07/24 Rx release atorvastatin 40 mg tablet 40 mg PO HS 30 days #30 tabs 04/26/24 06/07/24 Rx clopidogrel 75 mg tablet 75 mg PO DAILY 19 days #19 tabs 04/26/24 06/07/24 Rx glipizide 5 mg tablet 5 mg PO DAILY 30 days #30 tabs 04/26/24 06/07/24 Rx potassium chloride 20 mEq 40 meq (2 x 20 mEq) PO DAILY 30 04/26/24 06/07/24 Rx tablet,extended days #60 tabs release(part/cryst) (Klor-Con M) sertraline 100 mg tablet 100 mg PO DAILY 30 days #30 tabs 04/26/24 06/07/24 Rx trazodone 50 mg tablet 50 mg PO HSP PRN Sleep 30 days #30 04/26/24 06/07/24 Rx tabs lactulose 10 gram/15 mL oral 30 ml PO BIDP PRN Constipation 06/07/24 06/08/24 History solution magnesium 200 mg tablet 400 mg PO DAILY 06/07/24 06/07/24 History ferrous sulfate 325 mg (65 mg 325 mg PO BID 06/08/24 06/08/24 History iron) tablet multivitamin 1 tab PO DAILY 06/08/24 06/08/24 History New Prescriptions to Start Prescriptions: Allergies Allergy/AdvReac Type Severity Reaction Status Date / Time latex (LATEX) Allergy Intermediate I-ITCHING Verified 11/29/22 09:57 Penicillins (PENICILLINS) Allergy Mild I-RASH Verified 11/29/22 09:57 Sulfa (Sulfonamide Allergy Unknown I-RASH Verified 11/29/22 09:57 Antibiotics) (SULFA (SULFONAMIDE ANTIBIOTICS)) Tetanus Vaccines and Toxoid Allergy Unknown Verified 11/29/22 09:57 (TETANUS VACCINES & TOXOID) Exam (Inpt) Vital signs and Labs for Last 24 Hours: Temp Pulse Resp BP Pulse Ox O2 Del Method 97.6 F 89 17 118/79 90 L Room Air 06/08/24 04:00 06/08/24 04:00 06/08/24 04:00 06/08/24 04:00 06/08/24 04:00 06/08/24 06:44 Laboratory Results - last 24 hr 06/07/24 15:00: WBC 10.6, RBC 3.30 L, Hgb 9.4 L, Hct 29.7 L, MCV 90.0, MCH 28.5, MCHC 31.6 L, RDW 13.6, Plt Count 214, MPV 11.1 H, Neut % (Auto) 74.4, Lymph % (Auto) 17.8, [place] % (Auto) 5.2, Eos % (Auto) 1.9, Baso % (Auto) 0.3, Neut # (Auto) 7.9 H, Lymph # (Auto) 1.9, [place] # (Auto) 0.6, Eos # (Auto) 0.2, Baso # (Auto) 0.0, PT 10.4, INR 0.94, APTT 24.5, Sodium 137, Potassium 4.3, Chloride 108 H, Carbon Dioxide 20 L, Anion Gap 13.3, BUN 48 H, Creatinine 1.70 H, Estimated Creat Clear 24, Estimated GFR 29 L, Est GFR ( Amer) 35 L, G lucose 183 H, Calcium 9.8, Total Bilirubin 0.2, AST 28, ALT 18, Alkaline Phosphatase 95, Total Protein 6.7, Albumin 3.6, Globulin 3.1, Albumin/Globulin Ratio 1.2, Lipase 35 06/07/24 15:11: Lactate 1.4, Blood Type O Positive, Antibody Screen Negative 06/07/24 15:23: Stool Occult Blood Positive A 06/07/24 17:47: Iron 55, TIBC 222 L, Iron Saturation 24.15201, Ferritin 157 06/07/24 21:02: Hgb 8.2 L D, Hct 25.3 L 06/08/24 06:00: WBC 8.7, RBC 2.95 L, Hgb 8.7 L, Hct 26.6 L, MCV 90.2, MCH 29.5, MCHC 32.7, RDW 13.9, Plt Count 188, MPV 10.9 H, Neut % (Auto) 74.8, Lymph % (Auto) 14.9, [place] % (Auto) 4.5, Eos % (Auto) 5.0, Baso % (Auto) 0.2, Neut # (Auto) 6.5, Lymph # (Auto) 1.3, [place] # (Auto) 0.4, Eos # (Auto) 0.4, Baso # (Auto) 0.0, Sodium 139, Potassium 4.0, Chloride 111 H, Carbon Dioxide 20 L, Anion Gap 12.0, BUN 42 H, Creatinine 1.90 H, Estimated Creat Clear 22, Estimated GFR 26 L, Est GFR ( Amer) 31 L, Glucose 61 L D, Calcium 9.8, Magnesium 1.8, Total Bilirubin 0.2, AST 24, ALT 15, Alkaline Phosphatase 96, Total Protein 5.9 L, Albumin 3.1 L D, Globulin 2.8, Albumin/Globulin Ratio 1.1 06/08/24 06:05: POC Glucose 73 I & O for Labs for Last 24 Hours: Intake & Output 06/05/24 06/06/24 06/07/24 06/08/24 11:59 11:59 11:59 11:59 Intake Total 120 / 120 Output Total 0 / 0 Balance 120 / 120 Weight 124 lb GI: Present soft; Absent tenderness Results Labs 06/08/24 06:00 06/08/24 06:00 Labs: Laboratory Results - last 24 hr 06/07/24 15:00: WBC 10.6, RBC 3.30 L, Hgb 9.4 L, Hct 29.7 L, MCV 90.0, MCH 28.5, MCHC 31.6 L, RDW 13.6, Plt Count 214, MPV 11.1 H, Neut % (Auto) 74.4, Lymph % (Auto) 17.8, [place] % (Auto) 5.2, Eos % (Auto) 1.9, Baso % (Auto) 0.3, Neut # (Auto) 7.9 H, Lymph # (Auto) 1.9, [place] # (Auto) 0.6, Eos # (Auto) 0.2, Baso # (Auto) 0.0, PT 10.4, INR 0.94, APTT 24.5, Sodium 137, Potassium 4.3, Chloride 108 H, Carbon Dioxide 20 L, Anion Gap 13.3, BUN 48 H, Creatinine 1.70 H, Estimated Creat Clear 24, Estimated GFR 29 L, Est GFR ( Amer) 35 L, G lucose 183 H, Calcium 9.8, Total Bilirubin 0.2, AST 28, ALT 18, Alkaline Phosphatase 95, Total Protein 6.7, Albumin 3.6, Globulin 3.1, Albumin/Globulin Ratio 1.2, Lipase 35 06/07/24 15:11: Lactate 1.4, Blood Type O Positive, Antibody Screen Negative 06/07/24 15:23: Stool Occult Blood Positive A 06/07/24 17:47: Iron 55, TIBC 222 L, Iron Saturation 24.22294, Ferritin 157 06/07/24 21:02: Hgb 8.2 L D, Hct 25.3 L 06/08/24 06:00: WBC 8.7, RBC 2.95 L, Hgb 8.7 L, Hct 26.6 L, MCV 90.2, MCH 29.5, MCHC 32.7, RDW 13.9, Plt Count 188, MPV 10.9 H, Neut % (Auto) 74.8, Lymph % (Auto) 14.9, [place] % (Auto) 4.5, Eos % (Auto) 5.0, Baso % (Auto) 0.2, Neut # (Auto) 6.5, Lymph # (Auto) 1.3, [place] # (Auto) 0.4, Eos # (Auto) 0.4, Baso # (Auto) 0.0, Sodium 139, Potassium 4.0, Chloride 111 H, Carbon Dioxide 20 L, Anion Gap 12.0, BUN 42 H, Creatinine 1.90 H, Estimated Creat Clear 22, Estimated GFR 26 L, Est GFR ( Amer) 31 L, Glucose 61 L D, Calcium 9.8, Magnesium 1.8, Total Bilirubin 0.2, AST 24, ALT 15, Alkaline Phosphatase 96, Total Protein 5.9 L, Albumin 3.1 L D, Globulin 2.8, Albumin/Globulin Ratio 1.1 06/08/24 06:05: POC Glucose 73 Assessment and Plan *Assessment and plan (1) Melena: Status: Acute Category: Medical Code(s): K92.1 - Melena Plan Plan to proceed with upper endoscopy
--- NOTE | 2024-06-08 08:48 | PC.NURSE ---
Patient left floor with surgery
--- NOTE | 2024-06-08 08:53 | P.CONPHA_ITS ---
Pharmacy Intervention Comments: HOME MEDICATION LIST VERIFIED USING LIST FROM [facility]
--- NOTE | 2024-06-08 08:53 | HMH.PHAINT1 ---
Pharmacy Intervention Comments: HOME MEDICATION LIST VERIFIED USING LIST FROM [facility]
--- NOTE | 2024-06-08 09:19 | HMH.SCOPE ---
Procedure: Date: 06/08/24 Patient Date of :: 1945 Procedure Performed:: Esophagogastroduodenoscopy Indications:: Patient is a 78-year-old female with history of cerebrovascular disease with previous left carotid endarterectomy, history of tobacco abuse, prior history of ulcer disease. I had actually seen the patient in 2016 for gallbladder and upper endoscopy. She had upper endoscopy performed as an inpatient which revealed a large duodenal ulcer in 2015 and follow-up endoscopy on 05/18/2016 revealed this to be completely healed. According to the records she is not, as a baseline, on antacid medication. She had recently, in April 2024, had left hemispheric CVA and has been on dual antiplatelet therapy with aspirin and Plavix. She presented to the emergency department after having a large dark bloody bowel movement at the correction ([facility]). Hemoglobin was 9.4. She was admitted for inpatient management. Arrangements were made for upper endoscopy. Performing Provider:: Vahid Meek MD Referring Provider:: Tommy Liang MD Sedation:: MAC sedation Procedure:: Patient history was obtained and appropriate physical examination was performed. Patient's medications and allergies were reviewed. Informed consent was obtained after explaining the benefits, alternatives, and risks of the procedure including, but not limited to, bleeding, perforation, missed lesions, and adverse reaction to anesthesia medications. Patient was transported to endoscopy procedure room. Patient was connected to monitoring devices. Throughout the procedure the patient's blood pressure, pulse, and oxygen saturations were monitored continuously. Patient identification and planned procedure were verified by the staff. Patient was positioned in lateral decubitus position. Olympus endoscope was inserted via the oropharynx. Esophagus was cannulated. There was some mild tortuosity to the esophagus consistent with esophageal dysmotility. Gastroesophageal junction was encountered at approximately 39 cm from the incisors. Stomach was cannulated and insufflated. Retroflexion revealed minuscule tiny hiatal hernia. There is some diffuse mild gastritis. No evidence of GI bleeding within the gastric lumen. Pylorus was traversed. Within the duodenal bulb there was appreciable somewhat erosive duodenitis characterized by edema, induration, erythema, and a few erosions. No stigmata of recent bleeding. Endoscope was advanced beyond this to the distal duodenum and this appeared normal. Biopsies were not obtained due to the patient being on dual antiplatelet therapy. Stomach was desufflated and the endoscope was withdrawn. . Findings:: Esophageal dysmotility Minuscule hiatal hernia Mild gastropathy/gastritis Appreciable erosive duodenitis within the bulb Recommendations:: Continue therapeutic proton pump inhibitors. Monitor hemoglobin for stability and for clinical bleeding. Complications:: None immediately apparent Estimated blood obtained (mL): 0 Colonoscopy Component Colonoscopy Component Was a colonoscopy performed during today's procedure?: No
--- NOTE | 2024-06-08 09:30 | EXP.ANES.CKL ---
[facility] Disclaimer: The information contained in this section may have been updated after the patient was seen, as this information can be updated by other users. Medical History History of vaginal delivery Hemiparesis affecting right side as late effect of cerebrovascular accident Anemia Knee osteoarthritis GERD (gastroesophageal reflux disease) Abnormal radiologic finding of lung field Anxiety Pain in right wrist Right radial fracture Osteoarthritis History of TIA (transient ischemic attack) Elbow fracture, right Fracture of wrist TIA (transient ischemic attack) Bilateral carotid bruits PAD (peripheral artery disease) HLD (hyperlipidemia) CAD (coronary artery disease) HTN (hypertension) Carotid artery disease Surgical History History of cataract surgery Hx of shoulder surgery History of total knee arthroplasty History of left-sided carotid endarterectomy Family History Other No significant family history Social History Smoking Status: Never smoker second hand exposure: Yes alcohol intake: never counseling provided: none substance use type: denies use current occupational status: retired Travel in the last 8 weeks: None household members: spouse housing: house current occupational exposures/hazards: No caffeine: Yes Have you lived/traveled outside [place] in past 30 days?: No Contact w/someone who lives/traveled outside US past 30 days?: No Exposure to someone with infectious disease in past 14 days?: No Do you have a fever (greater than 100.4 F or 38 C)?: No Have you tested positive for COVID-19: No Exposed to someone with COVID-19 in past 14 days?: No Do you have a sore throat?: No Do you have a cough?: No Do you have any weakness?: No Are you experiencing any nausea/vomitting?: No Do you have any diarrhea?: No Are you experiencing any unusual bleeding?: No Do you have any muscle aches/pain?: No Do you have any abdominal pain?: No Are you experiencing loss of taste or smell?: No [facility] Anesthesia Checklist Patient Identification Patient Identification: Arm Band and Verbal (Name & ) Structural Data Admitted From: Inpatient Planned Operative Procedure/s: egd Consent for Planned Operative Procedure(s) Verified: Yes Verified Documents: Surgical Consent and History and Physical NPO Status Verified Time NPO: 00:00 Additional verifications Patient : No Anesthesia Reactions: No Cardiovascular Assessment Heart Sounds: S1 & S2 Pulse Strength: Baseline Pulse Rhythm: Regular Peripheral Edema: No Airway Assessment Mallampati Score:: Class I C-Spine Mobility Assessed: Yes TMJ Mobility Assessed: Yes Dentition: Edentulous Neurological Assessment Level of Consciousness: Awake, Alert and Appropriate Hx Seizures: No Numbness or tingling in extremities: No Anesthesia Plan Anesthesia Risk discussed: Yes ASA Class: III Anesthesia Type: MAC
--- NOTE | 2024-06-08 10:56 | EXP.DC.SUM ---
General Admission date:: 06/07/24 Discharge date: 06/08/24 HPI HPI HPI: Patient is a 78-year-old female with history of cerebrovascular disease with previous left carotid endarterectomy, history of tobacco abuse, prior history of ulcer disease. I had actually seen the patient in 2015 for gallbladder and upper endoscopy. She had upper endoscopy performed as an inpatient which revealed a large duodenal ulcer in 2015 and follow-up endoscopy on 05/18/2016 revealed this to be completely healed. She had recently, in April 2024, had left hemispheric CVA and has been on dual antiplatelet therapy with aspirin and Plavix. She presented to the emergency department after having a large dark bloody bowel movement at the intermediate ([facility]). Hemoglobin was 9.4. She was admitted for inpatient management. Arrangements were made for upper endoscopy. Hospital Course Hospital Course Hospital Course: Flor Arroyo is a 78-year-old female with a medical history significant for chronic tobacco smoker, type 2 diabetes, TIA, hypertension, CAD, carotid artery disease, with a recent CVA in April. She has been at nursing facility for rehab since. Presented after having large dark bowel movement today at her nursing facility. Workup in the ER concerning for anemia. Discussed case with ER physician, request admission for serial H&H and evaluation by GI for possible upper GI bleed. I agreed to admit for further care. Patient has been on dual antiplatelet therapy since the end of April. Currently hemodynamically stable. Denies any nausea or vomiting. No further black stools during admission. Hemoglobin remained stable on serial monitoring. Taken for EGD with no active bleeding but did have gastritis and irritation, see below. Stable to discharge back to nursing facility. Problems addressed as follows: Suspected upper GI bleed Melena Anemia -Presented with melenic stool. Found to be anemic with hemoglobin 9.4. Iron studies with iron level of 55, saturation 24%. Iron infusion held. Would benefit from consideration for oral iron at discharge. Initiated on pantoprazole 40 mg twice daily. Will continue 40 mg p.o. twice daily after discharge. No need for transfusion during admission. Serial hemoglobin showed stability, Hemoglobin 8.7 on morning of discharge. Was 9.5 04/24/2024. 8.8 on 04/26. 9.4 on admission. Dropped to 8.2, increased to 8.7. Maintain stable within the range of 9?0.5. Surgery was consulted and patient taken for EGD on morning of discharge 06/08/2024. Biopsies were not obtained due to the patient being on dual antiplatelet therapy. - Findings on EGD as follows: Esophageal dysmotility; Minuscule hiatal hernia; Mild gastropathy/gastritis; Appreciable erosive duodenitis within the bulb - needs repeat CBC and CMP in 2 days #Acute/subacute frontoparietal stroke April 2024 #Right lower, upper extremity weakness #Functional decline, inability to take care of herself #Recurrent falls -CT in April showed acute/subacute left frontoparietal stroke, neck CTA shows complete occlusion of the cervical left ICA and moderate stenosis of the proximal right ICA. Has been taking dual antiplatelet therapy since. Stable deficits in right side. No new complaints during admission. MRI obtained in April that confirmed acute and subacute left frontotemporal stroke. Continue therapy at [place]. Discontinue dual antiplatelet therapy due to GI bleed and patient is outside 21-day window past diagnosis. #Type 2 diabetes: Sliding scale insulin with fingersticks ACHS During admission. Resume home regimen at discharge Chronic conditions: #Hyperlipidemia #Hypertension Depression ? Continue high intensity statin. Continue Zoloft 100 mg daily and trazodone 50 mg nightly for mood and sleep. Total time spent on discharge 38 minutes in counseling, documentation, chart review, and direct care with patient. Exam Data for Last 24 hours Vital signs and Labs for Last 24 Hours: Temp Pulse Resp BP Pulse Ox O2 Del Method O2 Flow Rate 97.9 F 62 16 130/68 97 Room Air 3 06/08/24 09:25 06/08/24 09:55 06/08/24 09:55 06/08/24 09:55 06/08/24 09:55 06/08/24 09:55 06/08/24 09:25 Laboratory Results - last 24 hr 06/07/24 15:00: WBC 10.6, RBC 3.30 L, Hgb 9.4 L, Hct 29.7 L, MCV 90.0, MCH 28.5, MCHC 31.6 L, RDW 13.6, Plt Count 214, MPV 11.1 H, Neut % (Auto) 74.4, Lymph % (Auto) 17.8, [place] % (Auto) 5.2, Eos % (Auto) 1.9, Baso % (Auto) 0.3, Neut # (Auto) 7.9 H, Lymph # (Auto) 1.9, [place] # (Auto) 0.6, Eos # (Auto) 0.2, Baso # (Auto) 0.0, PT 10.4, INR 0.94, APTT 24.5, Sodium 137, Potassium 4.3, Chloride 108 H, Carbon Dioxide 20 L, Anion Gap 13.3, BUN 48 H, Creatinine 1.70 H, Estimated Creat Clear 24, Estimated GFR 29 L, Est GFR ( Amer) 35 L, Glucose 183 H, Calcium 9.8, Total Bilirubin 0.2, AST 28, ALT 18, Alkaline Phosphatase 95, Total Protein 6.7, Albumin 3.6, Globulin 3.1, Albumin/Globulin Ratio 1.2, Lipase 35 06/07/24 15:11: Lactate 1.4, Blood Type O Positive, Antibody Screen Negative 06/07/24 15:23: Stool Occult Blood Positive A 06/07/24 17:47: Iron 55, TIBC 222 L, Iron Saturation 24.79289, Ferritin 157 06/07/24 21:02: Hgb 8.2 L D, Hct 25.3 L 06/08/24 06:00: WBC 8.7, RBC 2.95 L, Hgb 8.7 L, Hct 26.6 L, MCV 90.2, MCH 29.5, MCHC 32.7, RDW 13.9, Plt Count 188, MPV 10.9 H, Neut % (Auto) 74.8, Lymph % (Auto) 14.9, [place] % (Auto) 4.5, Eos % (Auto) 5.0, Baso % (Auto) 0.2, Neut # (Auto) 6.5, Lymph # (Auto) 1.3, [place] # (Auto) 0.4, Eos # (Auto) 0.4, Baso # (Auto) 0.0, Sodium 139, Potassium 4.0, Chloride 111 H, Carbon Dioxide 20 L, Anion Gap 12.0, BUN 42 H, Creatinine 1.90 H, Estimated Creat Clear 22, Estimated GFR 26 L, Est GFR ( Amer) 31 L, Glucose 61 L D, Calcium 9.8, Magnesium 1.8, Total Bilirubin 0.2, AST 24, ALT 15, Alkaline Phosphatase 96, Total Protein 5.9 L, Albumin 3.1 L D, Globulin 2.8, Albumin/Globulin Ratio 1.1 06/08/24 06:05: POC Glucose 73 I & O for Last 24 hours: Intake & Output 06/05/24 06/06/24 06/07/24 06/08/24 23:59 23:59 23:59 23:59 Intake Total 120 / 120 Output Total 0 / 0 Balance 0 / 120 120 / 120 Weight 55.792 kg 56.245 kg Constitutional Constitutional: no acute distress, average body habitus, chronically ill appearing and cooperative *Routine HEENT Exam Head: Present normocephalic Eye: Present EOMI and PERRL ENT: Present mucous membranes moist *Routine Neck Exam Neck: Present supple; Absent lymphadenopathy *Routine Respiratory Exam Respiratory: Present CTA bilaterally; Absent rhonchi, wheezes or crackles *Routine Cardiovascular Exam Cardiovascular: Present RRR *Routine Abdominal Exam Abdominal: Present soft and normoactive bowel sounds; Absent tenderness *Routine Rectal Exam Patient deferred: visual exam *Routine Exam Patient deferred: external exam *Routine Extremities Exam Extremities: Absent cyanosis, clubbing or edema *Routine Skin Exam Skin: Present intact and warm; Absent rash *Routine Neurological Exam Neurological: Present alert, oriented X3 and hemineglect; Absent altered mental status or moving all extremities Comments: Hemineglect of right side, right-sided upper extremity weakness 4/5. Full function left-sided upper and lower extremity. Right lower extremity with weakness 3/5. Results Data Completed and Pending Labs on day of discharge: Labs from last 24 hours 06/08/24 06/08/24 06/07/24 06:05 06:00 21:02 WBC 8.7 RBC 2.95 L Hgb 8.7 L 8.2 L D Hct 26.6 L 25.3 L MCV 90.2 MCH 29.5 MCHC 32.7 RDW 13.9 Plt Count 188 MPV 10.9 H Neut % (Auto) 74.8 Lymph % (Auto) 14.9 [place] % (Auto) 4.5 Eos % (Auto) 5.0 Baso % (Auto) 0.2 Neut # (Auto) 6.5 Lymph # (Auto) 1.3 [place] # (Auto) 0.4 Eos # (Auto) 0.4 Baso # (Auto) 0.0 PT INR APTT Sodium 139 Potassium 4.0 Chloride 111 H Carbon Dioxide 20 L Anion Gap 12.0 BUN 42 H Creatinine 1.90 H Estimated Creat Clear 22 Estimated GFR 26 L Est GFR ( Amer) 31 L Glucose 61 L D POC Glucose 73 Lactate Calcium 9.8 Magnesium 1.8 Iron TIBC Iron Saturation Ferritin Total Bilirubin 0.2 AST 24 ALT 15 Alkaline Phosphatase 96 Total Protein 5.9 L Albumin 3.1 L D Globulin 2.8 Albumin/Globulin Ratio 1.1 Lipase Stool Occult Blood Blood Type Antibody Screen 06/07/24 06/07/24 06/07/24 17:47 15:23 15:11 WBC RBC Hgb Hct MCV MCH MCHC RDW Plt Count MPV Neut % (Auto) Lymph % (Auto) [place] % (Auto) Eos % (Auto) Baso % (Auto) Neut # (Auto) Lymph # (Auto) [place] # (Auto) Eos # (Auto) Baso # (Auto) PT INR APTT Sodium Potassium Chloride Carbon Dioxide Anion Gap BUN Creatinine Estimated Creat Clear Estimated GFR Est GFR ( Amer) Glucose POC Glucose Lactate 1.4 Calcium Magnesium Iron 55 TIBC 222 L Iron Saturation 24.99212 Ferritin 157 Total Bilirubin AST ALT Alkaline Phosphatase Total Protein Albumin Globulin Albumin/Globulin Ratio Lipase Stool Occult Blood Positive A Blood Type O Positive Antibody Screen Negative 06/07/24 15:00 WBC 10.6 RBC 3.30 L Hgb 9.4 L Hct 29.7 L MCV 90.0 MCH 28.5 MCHC 31.6 L RDW 13.6 Plt Count 214 MPV 11.1 H Neut % (Auto) 74.4 Lymph % (Auto) 17.8 [place] % (Auto) 5.2 Eos % (Auto) 1.9 Baso % (Auto) 0.3 Neut # (Auto) 7.9 H Lymph # (Auto) 1.9 [place] # (Auto) 0.6 Eos # (Auto) 0.2 Baso # (Auto) 0.0 PT 10.4 INR 0.94 APTT 24.5 Sodium 137 Potassium 4.3 Chloride 108 H Carbon Dioxide 20 L Anion Gap 13.3 BUN 48 H Creatinine 1.70 H Estimated Creat Clear 24 Estimated GFR 29 L Est GFR ( Amer) 35 L Glucose 183 H POC Glucose Lactate Calcium 9.8 Magnesium Iron TIBC Iron Saturation Ferritin Total Bilirubin 0.2 AST 28 ALT 18 Alkaline Phosphatase 95 Total Protein 6.7 Albumin 3.6 Globulin 3.1 Albumin/Globulin Ratio 1.2 Lipase 35 Stool Occult Blood Blood Type Antibody Screen DS: Diagnosis Discharge Diagnosis (1) Acute GI bleeding: Status: Acute Code(s): K92.2 - Gastrointestinal hemorrhage, unspecified (2) Melena: Status: Acute Code(s): K92.1 - Melena (3) Anemia: Status: Acute Code(s): D64.9 - Anemia, unspecified (4) GERD (gastroesophageal reflux disease): Status: Acute Code(s): K21.9 - Gastro-esophageal reflux disease without esophagitis (5) Anxiety: Status: Acute Code(s): F41.9 - Anxiety disorder, unspecified (6) CVA (cerebral vascular accident): Status: Chronic Code(s): I63.9 - Cerebral infarction, unspecified (7) Diabetes mellitus type 2, controlled: Status: Chronic Code(s): E11.9 - Type 2 diabetes mellitus without complications Qualifiers: Diabetes mellitus intermediate insulin use: without long term acute care registered nurse use Diabetes mellitus complication status: without complication Qualified Code(s): E11.9 - Type 2 diabetes mellitus without complications (8) Chronic kidney disease: Status: Chronic Code(s): N18.9 - Chronic kidney disease, unspecified Qualifiers: Chronic kidney disease stage: unspecified stage Qualified Code(s): N18.9 - Chronic kidney disease, unspecified (9) CAD (coronary artery disease): Status: Chronic Code(s): I25.10 - Atherosclerotic heart disease of [place] coronary artery without angina pectoris Qualifiers: Coronary Disease-Associated Artery/Lesion type: [place] artery [place] vs. transplanted heart: [place] heart Associated angina: without angina Qualified Code(s): I25.10 - Atherosclerotic heart disease of [place] coronary artery without angina pectoris (10) HTN (hypertension): Status: Chronic Code(s): I10 - Essential (primary) hypertension Qualifiers: Hypertension type: essential hypertension Qualified Code(s): I10 - Essential (primary) hypertension Meds Home Medications and Allergies Home Medications ?Medication ?Instructions ?Recorded ?Confirmed ?Type atorvastatin 40 mg tablet 40 mg PO HS 30 days #30 tabs 04/26/24 06/07/24 Rx glipizide 5 mg tablet 5 mg PO DAILY 30 days #30 tabs 04/26/24 06/07/24 Rx potassium chloride 20 mEq 40 meq (2 x 20 mEq) PO DAILY 30 04/26/24 06/07/24 Rx tablet,extended days #60 tabs release(part/cryst) (Klor-Con M) sertraline 100 mg tablet 100 mg PO DAILY 30 days #30 tabs 04/26/24 06/07/24 Rx trazodone 50 mg tablet 50 mg PO HSP PRN Sleep 30 days #30 04/26/24 06/07/24 Rx tabs lactulose 10 gram/15 mL oral 30 ml PO BIDP PRN Constipation 06/07/24 06/08/24 History solution magnesium 200 mg tablet 400 mg PO DAILY 06/07/24 06/07/24 History ferrous sulfate 325 mg (65 mg 325 mg PO BID 06/08/24 06/08/24 History iron) tablet multivitamin 1 tab PO DAILY 06/08/24 06/08/24 History pantoprazole 40 mg tablet,delayed 40 mg PO BID 30 days #60 tabs 06/08/24 Rx release New Prescriptions to Start Prescriptions: pantoprazole Gen Gomez Allergies Allergy/AdvReac Type Severity Reaction Status Date / Time latex (LATEX) Allergy Intermediate I-ITCHING Verified 11/29/22 09:57 Penicillins (PENICILLINS) Allergy Mild I-RASH Verified 11/29/22 09:57 Sulfa (Sulfonamide Allergy Unknown I-RASH Verified 11/29/22 09:57 Antibiotics) (SULFA (SULFONAMIDE ANTIBIOTICS)) Tetanus Vaccines and Toxoid Allergy Unknown Verified 11/29/22 09:57 (TETANUS VACCINES & TOXOID) Discharge Plan Disposition Patient Disposition: [facility] Condition: Fair Discharge Order Discharge Orders: Discharge Order (Routine); Ordered 06/08/24 Ordered By: Gen Gomez Follow up Plan Prescriptions/Medication Reconciliation: New pantoprazole 40 mg Tablet,Delayed Release (Dr/Ec) 40 mg PO BID 30 Days Qty: 60 0RF Continued magnesium 200 mg tablet 400 mg PO DAILY lactulose 10 gram/15 mL solution 30 ml PO BIDP PRN (Reason: Constipation) multivitamin Tablet 1 tab PO DAILY ferrous sulfate 325 mg (65 mg iron) Tablet 325 mg PO BID trazodone 50 mg Tablet 50 mg PO HSP PRN (Reason: Sleep) 30 Days Qty: 30 0RF potassium chloride [Klor-Con M20] 20 mEq Tablet,Er Particles/Crystals 40 meq PO DAILY 30 Days Qty: 60 0RF atorvastatin 40 mg tablet 40 mg PO HS 30 Days Qty: 30 0RF sertraline 100 mg tablet 100 mg PO DAILY 30 Days Qty: 30 0RF glipizide 5 mg tablet 5 mg PO DAILY 30 Days Qty: 30 0RF Discontinued clopidogrel 75 mg Tablet 75 mg PO DAILY 19 Days Qty: 19 0RF aspirin 81 mg Tablet,Delayed Release (Dr/Ec) 81 mg PO DAILY 30 Days Qty: 30 0RF Problem Reconciliation Problems Reviewed?: Yes Patient Discharge Instructions ACTIVITY: Continue current activity DIET: continue same diet Patient Instructions: Anemia, DI for Gastrointestinal Bleeding Print Language: [place] Providers Primary Care Provider: Orly Liang Admit Provider: Gen Gomez Attending Provider: Gen Gomez
[2024-06-08 11:26] LABS: POC Glucose,Bedside 78 (70-110)
[2024-06-08] MEDS: SERTRALINE 100MG TABLET 100 MG PO (11:34)
[2024-06-08] MEDS: PANTOPRAZOLE 40MG TABLET 40 MG PO (11:34)
--- NOTE | 2024-06-08 15:04 | SW/DCPLANNER ---
Faxed patients D/C packet to [place] where she is currently living at. Patient was D/C today. Dylon Giles
== END 2024-06-08 13:55 ==
LOC: ER 16:06 → 2ND 17:41
PROVIDERS: Internal Medicine Gastroenterology; Surgery; Admitting Provider Internal Medicine Adolescent Medicine; Emergency Provider Emergency Medicine; PCP Family Medicine; Visit Provider Internal Medicine Adolescent Medicine
PROC: 0DJ08ZZ Inspection of Upper Intestinal Tract, Via Natural or Artificial Opening Endoscopic (ICD-10-PCS; principal; 2024-06-08 09:35)
DX: K29.71 Gastritis, unspecified, with bleeding (principal); K21.9 Gastro-esophageal reflux disease without esophagitis; K44.9 Diaphragmatic hernia without obstruction or gangrene; K31.9 Disease of stomach and duodenum, unspecified; E11.51 Type 2 diabetes mellitus with diabetic peripheral angiopathy without gangrene; I69.351 Hemiplegia and hemiparesis following cerebral infarction affecting right dominant side; D64.9 Anemia, unspecified; F32.A Depression, unspecified; I10 Essential (primary) hypertension; E78.5 Hyperlipidemia, unspecified; I25.10 Atherosclerotic heart disease of native coronary artery without angina pectoris; Z87.891 Personal history of nicotine dependence; Z91.81 History of falling; Z79.02 Long term (current) use of antithrombotics/antiplatelets; Z79.82 Long term (current) use of aspirin; Z79.84 Long term (current) use of oral hypoglycemic drugs; Z74.1 Need for assistance with personal care; Z79.899 Other long term (current) drug therapy
CPT/HCPCS: 43235; 36415; 74174; 80053; 82272; 82728; 82962; 83540; 83550; 83605; 83690; 83735; 85014; 85018; 85025; 85610; 85730; 86850; 99291; G0328; G0378; J2405; J7120; Q9967

== ENCOUNTER 2024-06-10 12:31 | Outpatient (CLI) | payer MEDICARE, OTHER, SELFPAY ==
[2024-06-10 12:46] LABS: Basophils % 0.3 % (0.1-2.0); Eosinophils # 0.3 K/mm3 (0.0-0.4); Eosinophils % 3.6 % (0.1-12.0); Hematocrit 27.1 % (37.0-47.0); Hemoglobin 8.6 g/dL (12.2-16.2); Lymphocytes # 1.2 K/mm3 (0.7-4.5); Mean Corpuscular HGB Conc 31.7 g/dL (31.8-35.4); Mean Corpuscular Hemoglobin 29.2 pg (27.0-31.2); Mean Corpuscular Volume 91.9 fl (81-99); Mean Platelet Volume 11.2 fl (7.4-10.4); Monocytes # 0.3 K/mm3 (0.1-1.0); Monocytes % 3.9 % (1.7-9.3); Neutrophils # 6.7 K/mm3 (1.8-7.8); Neutrophils % 77.9 % (37.0-80.0); Platelet Count 207 K/mm3 (142-424); Red Blood Count 2.95 M/mm3 (4.20-5.40); Red Cell Distribution Width 14.1 % (11.5-17.5); White Blood Count 8.6 K/mm3 (4.8-10.8)
[2024-06-10 12:49] LABS: Albumin Level 3.6 g/dl (3.5-5.0); Chloride 111 mmol/L (98-107); Sodium 141 mmol/L (136-145)
[2024-06-10 12:50] LABS: Potassium 4.7 mmoL/L (3.5-5.1)
[2024-06-10 12:52] LABS: Alanine Aminotransferase 17 U/L (12-78); Anion Gap 12.7 mEq/L (5-15); Aspartate Amino Transferase 24 U/L (14-36); Bilirubin,Total 0.3 mg/dl (0.2-1.3); Blood Urea Nitrogen 34 mg/dl (7-17); Carbon Dioxide 22 mmol/L (22.0-30.0); Estimated Glomerular Filt Rate 24 ml/min (>60); GFR (African American) 29 ML/MIN (>60)
[2024-06-10 12:53] LABS: Albumin/Globulin Ratio 1.2 (1.1-1.8); Alkaline Phosphatase 106 U/L (38-126); Calcium 10.3 mg/dl (8.4-10.2); Globulin 2.9 g/dL (1.3-3.2); Glucose 84 mg/dl (74-100); Total Protein,Serum 6.5 g/dl (6.3-8.2)
== END 2024-06-10 23:59 | disposition home or self-care (01) ==
LOC: LAB.DROPOF 12:35
PROVIDERS: PCP Family Medicine; Visit Provider Family Medicine
DX: I69.351 Hemiplegia and hemiparesis following cerebral infarction affecting right dominant side (principal); E11.9 Type 2 diabetes mellitus without complications; I25.10 Atherosclerotic heart disease of native coronary artery without angina pectoris; I10 Essential (primary) hypertension; K92.2 Gastrointestinal hemorrhage, unspecified; R91.8 Other nonspecific abnormal finding of lung field
CPT/HCPCS: 80053; 85025

== ENCOUNTER 2024-07-22 23:27 | Emergency (ER) | payer MEDICARE, OTHER, SELFPAY ==
--- NOTE | 2024-07-22 23:27 | CT_ITS ---
PROCEDURE INFORMATION: Exam: CTA Neck With Contrast Exam date and time: 07/22/2024 11:36 PM Age: 78 years old Clinical indication: Stroke-like symptoms; Altered mental status/memory loss; Additional info: Possible stroke TECHNIQUE: Imaging protocol: Computed tomographic angiography of the neck with contrast. Exam focused on the cervical segments of the vasculature. 3D rendering (Not supervised by radiologist): MIP and/or 3D reconstructed images were created by the technologist. Radiation optimization: All CT scans at this facility use at least one of these dose optimization techniques: automated exposure control; mA and/or kV adjustment per patient size (includes targeted exams where dose is matched to clinical indication); or iterative reconstruction. Contrast material: ISOUVE 370; Contrast volume: 80 ml; Contrast route: INTRAVENOUS (IV); COMPARISON: CT ANGIO NECK 04/23/2024 9:58 AM FINDINGS: Right common carotid artery: No stenosis. No dissection or occlusion. Right internal carotid artery: Severe atherosclerotic disease of the right sided internal carotid artery bulb with stenosis measuring 70%. There is good distal flow. Right external carotid artery: No occlusion or stenosis of the origin. Left common carotid artery: No stenosis. No dissection or occlusion. 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 There is no distal reconstitution. Left external carotid artery: No occlusion or stenosis of the origin. Right vertebral artery: No stenosis. No dissection or occlusion. Left vertebral artery: No stenosis. No dissection or occlusion. 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 There is reconstitution after the vertebral artery. Soft tissues: Normal. No significant soft tissue swelling. Bones/joints: No acute fracture. Lungs: 1.1 x 1.4 cm nodule within the right upper lobe laterally. This demonstrates micro lobulations. Mass within the lingula adjacent to the cardiac border it measures 3.3 x 2.1 cm in size. Prevascular mass that measures 4.4 x 1.8 cm in size. IMPRESSION: 1. 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 There is reconstitution after the vertebral artery. Steal syndrome should be considered. This is unchanged compared to the previous exam. 2. Severe atherosclerotic disease of the right sided internal carotid artery bulb with stenosis measuring 70%. There is good distal flow. 3. Occlusion of the left internal carotid artery at the bulb. There is no distal reconstitution. This is unchanged compared to the previous exam. 4. The remainder of the vascular structures are unremarkable. There is no other occlusion. There is no other significant stenosis or aneurysm. 5. Nodule within the right upper lobe, mass within the lingula, and mass in the anterior mediastinum. All these have increased in size over last 3 months and concerning for a malignancy. 6. There is no vascular drying rack changer the last 3 months. REFERENCES: NASCET CRITERIA. The degree of stenosis in the cervical segment of the internal carotid artery is based on NASCET criteria. Normal is no stenosis. Mild is less than 50% stenosis. Moderate is 50-69% stenosis. Severe is 70% to 99% stenosis. Total occlusion is no detectable patent lumen.
--- NOTE | 2024-07-22 23:27 | CT_ITS ---
PROCEDURE INFORMATION: Exam: CT Head Without Contrast Exam date and time: 07/22/2024 11:36 PM Age: 78 years old Clinical indication: Stroke-like symptoms; Altered mental status/memory loss; Additional info: Possible stroke TECHNIQUE: Imaging protocol: Computed tomography of the head without contrast. Radiation optimization: All CT scans at this facility use at least one of these dose optimization techniques: automated exposure control; mA and/or kV adjustment per patient size (includes targeted exams where dose is matched to clinical indication); or iterative reconstruction. Other technique: STROKE PROTOCOL was implemented. COMPARISON: MR HEAD/BRAIN WO CON 04/23/2024 2:33 PM FINDINGS: Brain: Encephalomalacia of the medial left frontal and parietal lobes. There is a moderate amount of periventricular white matter disease. There is no area of intraparenchymal or extra-axial hemorrhage present. There is no intra-axial mass. There is no midline shift. The canseco-white matter junction is intact. Cerebral ventricles: No ventriculomegaly. Paranasal sinuses: Visualized sinuses are unremarkable. No fluid levels. Mastoid air cells: Visualized mastoid air cells are well aerated. Bones: Unremarkable. No acute fracture. Soft tissues: Unremarkable. IMPRESSION: 1. Old left BIANCA territory infarction. 2. Moderate periventricular white matter disease. 3. Otherwise unremarkable examination of the brain. There is no acute intracranial abnormality seen. ASSESSMENT: ASPECTS ([place] Stroke Program Early CT Score) is 10.
--- NOTE | 2024-07-22 23:27 | CT_ITS ---
PROCEDURE INFORMATION: Exam: CTA Head With Contrast, Arteriography Exam date and time: 07/22/2024 11:36 PM Age: 78 years old Clinical indication: Stroke-like symptoms; Altered mental status/memory loss; Additional info: Possible stroke TECHNIQUE: Imaging protocol: Computed tomographic angiography of the head with contrast. Exam focused on the arteries. 3D rendering (Not supervised by radiologist): MIP and/or 3D reconstructed images were created by the technologist. Radiation optimization: All CT scans at this facility use at least one of these dose optimization techniques: automated exposure control; mA and/or kV adjustment per patient size (includes targeted exams where dose is matched to clinical indication); or iterative reconstruction. Contrast material: ISOUVE 370; Contrast volume: 80 ml; Contrast route: INTRAVENOUS (IV); COMPARISON: CT ANGIO HEAD 04/23/2024 9:58 AM FINDINGS: ANTERIOR CIRCULATION: Right internal carotid artery: Intracranial segment is patent with no significant stenosis or occlusion. No aneurysm. Right middle cerebral artery: No occlusion or significant stenosis. No aneurysm. Right anterior cerebral artery: No occlusion or significant stenosis. No aneurysm. Left internal carotid artery: Diminutive flow within the left internal carotid artery. Left middle cerebral artery: No occlusion or significant stenosis. No aneurysm. Left anterior cerebral artery: No occlusion or significant stenosis. No aneurysm. POSTERIOR CIRCULATION: Right vertebral artery: No occlusion or significant stenosis. No aneurysm. Left vertebral artery: No occlusion or significant stenosis. No aneurysm. Basilar artery: No occlusion or significant stenosis. No aneurysm. Right posterior cerebral artery: No occlusion or significant stenosis. No aneurysm. Left posterior cerebral artery: No occlusion or significant stenosis. No aneurysm. Veins: No venous sinus thrombosis. Brain: Normal. No hemorrhage. Unremarkable white matter. No mass effect. Cerebral ventricles: Normal. No ventriculomegaly. Bones/joints: Unremarkable. No acute fracture. Soft tissues: Unremarkable. IMPRESSION: 1. Diminutive flow within the left internal carotid artery. This is secondary to occlusion in the neck. This is unchanged compared to the previous examination. 2. The remainder of the vascular structures are unremarkable. There is no other occlusion. There is no other significant stenosis or aneurysm.
--- NOTE | 2024-07-22 23:30 | ECG_ITS ---
APPROVED REPORT Exam: Resting ECG HR:120 bpm ECG Measurements Heart Rate 120 AXES MT 158 P 64 QRSd 77 QRS 46 QT 277 T 75 QTc 349 Conclusion SINUS TACHYCARDIA WITH OCCASIONAL SUPRAVENTRICULAR PREMATURE COMPLEXES NONSPECIFIC ST & T-WAVE ABNORMALITY Diffuse ST depressions without reciprocal changes or elevation, no STEMI Electronically signed by : PEDRO VEE, 07/23/2024 07:15:28
[2024-07-22 23:34] LABS: VBG Base Excess -14.4 mmol/L (-2.4-2.3); VBG HCO3 15.1 mmol/L (23-30); VBG Oxygen Saturation 94.4 % (50-70); VBG PCO2 48.6 mmol/L (35-51); VBG PO2 90.6 mmol/L (28-40); VBG Total CO2 16.6 mmol/L (23-27)
[2024-07-22 23:35] LABS: Lactate Venous 10.5 mmol/L (0.4-2.0); VBG PH 7.11 mmol/L (7.31-7.41)
[2024-07-22 23:37] LABS: Basophils # 0.1 K/mm3 (0-0.2); Basophils % 0.4 % (0.1-2.0); Eosinophils # 0.9 K/mm3 (0.0-0.4); Hematocrit 37.4 % (37.0-47.0); Hemoglobin 11.5 g/dL (12.2-16.2); Lymphocytes # 8.7 K/mm3 (0.7-4.5); Lymphocytes % 40.7 % (10-50); Mean Corpuscular HGB Conc 30.7 g/dL (31.8-35.4); Mean Platelet Volume 11.4 fl (7.4-10.4); Monocytes # 1.3 K/mm3 (0.1-1.0); Monocytes % 5.9 % (1.7-9.3); Neutrophils # 10.4 K/mm3 (1.8-7.8); Neutrophils % 48.8 % (37.0-80.0); Platelet Count 233 K/mm3 (142-424); Red Blood Count 4.11 M/mm3 (4.20-5.40); Red Cell Distribution Width 13.4 % (11.5-17.5); White Blood Count 21.4 K/mm3 (4.8-10.8)
[2024-07-22 23:39] LABS: MANUAL DIFFERENTIAL MANUAL DIFFERENTIAL (MANUAL DIFF)
[2024-07-22 23:41] LABS: Albumin Level 4.5 g/dl (3.5-5.0); Chloride 105 mmol/L (98-107); Sodium 139 mmol/L (136-145)
[2024-07-22 23:42] LABS: Potassium 4.1 mmoL/L (3.5-5.1)
[2024-07-22 23:44] LABS: Alanine Aminotransferase 25 U/L (12-78); Albumin/Globulin Ratio 1.3 (1.1-1.8); Anion Gap 22.1 mEq/L (5-15); Aspartate Amino Transferase 32 U/L (14-36); Blood Urea Nitrogen 22 mg/dl (7-17); Carbon Dioxide 16 mmol/L (22.0-30.0); Estimated Glomerular Filt Rate 24 ml/min (>60); GFR (African American) 29 ML/MIN (>60); Globulin 3.5 g/dL (1.3-3.2)
[2024-07-22 23:45] LABS: Alkaline Phosphatase 155 U/L (38-126); Bilirubin,Total 0.6 mg/dl (0.2-1.3); Calcium 10.2 mg/dl (8.4-10.2); Chol/HDL Ratio 2.1 (1-3.5); Cholesterol 129 mg/dl (140-200); Glucose 215 mg/dl (74-100); HDL Cholesterol 61 mg/dl (40-60); Triglycerides 145 mg/dl (30-150); VLDL Cholesterol 29 mg/dL (0-40)
[2024-07-22 23:47] LABS: Acetone, Serum (Rapid) None Detected (None Detect); Ethyl Alcohol < 10 mg/dl (0-10)
[2024-07-22 23:51] VITALS: BP 167/70; PULSE 104; RESP 20; TEMP 36.6; O2SAT 97; BMI 26.4
[2024-07-22] MEDS: LACTATED RINGERS 1000ML 1,000 ML 999 ML IV (23:54)
[2024-07-22] MEDS: levETIRAcetam 2,000 MG in 0.9 % SODIUM CHLORIDE 100 ML 240 MG IV (23:54)
[2024-07-22 23:55] VITALS: BP 167/70; RESP 22; O2SAT 97; BMI 26.4
[2024-07-22 23:56] LABS: Direct LDL Cholesterol 38.84 mg/dL (100-129)
[2024-07-22] MEDS: IOPAMIDOL-370 (76%);100ML BOTTLE 80 ML IV (23:56)
[2024-07-22] MEDS: 0.9 % SODIUM CHLORIDE 50 ML VIAL 40 ML IV (23:56)
[2024-07-22] MEDS: SODIUM CHLORIDE 0.9% 10ML FLUSH SYRINGE 10 ML IV (23:56)
[2024-07-22] MEDS: LORazepam 2MG/ML VIAL 2 MG IV ×2 (23:57→23:58)
[2024-07-22 23:58] LABS: Eosinophils % 7 % (0-3); Lymphocytes % 44 % (10-50); Monocytes % 6 % (2-9); Neutrophils % 43 % (42-76); Total Cells Counted 100; Troponin I 0.02 ng/ml (0.00-0.034)
[2024-07-23 00:01] LABS: RBC Morphology Normal
[2024-07-23 00:02] LABS: Platelet Estimate Normal
[2024-07-23 00:04] LABS: Activated Partial Thrombo Time 28.8 seconds (22.8-30.6); INR 0.92 (0.9-1.1); Prothrombin Time 10.4 seconds (10.1-12.5)
--- NOTE | 2024-07-23 00:05 | ED_ITS ---
Discharge Plan Disposition Patient Disposition: Xfer Short-Term Hosp Condition: Serious Chief Complaint: Seizure Prescriptions Prescriptions: No Action magnesium 200 mg tablet 400 mg PO DAILY lactulose 10 gram/15 mL solution 30 ml PO BIDP PRN (Reason: Constipation) multivitamin Tablet 1 tab PO DAILY ferrous sulfate 325 mg (65 mg iron) Tablet 325 mg PO BID pantoprazole 40 mg Tablet,Delayed Release (Dr/Ec) 40 mg PO BID 30 Days Qty: 60 0RF trazodone 50 mg Tablet 50 mg PO HSP PRN (Reason: Sleep) 30 Days Qty: 30 0RF potassium chloride [Klor-Con M20] 20 mEq Tablet,Er Particles/Crystals 40 meq PO DAILY 30 Days Qty: 60 0RF atorvastatin 40 mg tablet 40 mg PO HS 30 Days Qty: 30 0RF sertraline 100 mg tablet 100 mg PO DAILY 30 Days Qty: 30 0RF glipizide 5 mg tablet 5 mg PO DAILY 30 Days Qty: 30 0RF Referrals Follow up/Referrals: Orly Liang MD [Primary Care Provider] - See instructions Clinical Impressions Clinical Impression: Status epilepticus, UTI (urinary tract infection), Lactic acidosis Stand Alone Forms Stand Alone Forms: Transfer Record - ED Instructions Patient Instructions: DI for Seizure Disorder -- Adult, DI for Seizure (Not Epilepsy/Seizure Disorder), DI for Seizure Disorder -- Child Print Language Print Language: [place] Discharge ED Provider: Sandra Franks Adult HPI General Chief complaint: Seizure Stated complaint: chest pain Time Seen by Provider: 07/22/24 23:27 Mode of Arrival: EMS Source of Information: EMS Description of Symptoms (Recalled from ER Triage Doc. by RN): Patient presents via EMS actively seizing History of Present Illness HPI narrative: 78-year-old female with history of poorly controlled diabetes, GERD, multiple prior CVAs that have left dense right-sided deficits according to family, history of PAD, hyperlipidemia, CAD, smoking, hypertension presents to the ER from [facility] via EMS. [facility] reportedly found her turning blue and having difficulty breathing with shallow respirations. They called EMS. EMS found her in a similar state and minimally responsive. Patient has DNR/DNI paperwork. They report that their initial ECG showed acute KS. Vitals in route demonstrated hypertension. They did not start an IV prior to arrival. EMS criminology teacher who initially provided report stated he was concerned for STEMI but did not provide a twelve-lead. When they arrived in the ambulance bay patient started actively having a full generalized tonic-clonic seizure per EMS. The tonic-clonic activity had subsided by the time she was rolled into the room. No seizure abortives were administered by EMS. On arrival patient's eyes are open but she is otherwise not responsive and has shallow, sonorous respirations. I spoke with patient's son shortly after patient's arrival and he stated the patient is DNR, DNI, he also reported that she has been a very noncompliant patient continuing to smoke, not taking her medications like she is supposed to, and being very poorly compliant with her diabetes including drinking pop and eating chocolate all the time. Additionally he reports patient has had a few seizure-like episodes in the past but reportedly she would have 1 and it would be many years before she would have another so she has never had a neurologic evaluation or been on antiepileptic medication. These episodes have previously been attributed to TIA as well. Patient also has lung lesions that her family has been encouraging her to have biopsied but she has refused. Related Data Home Medications ?Medication ?Instructions ?Recorded ?Confirmed lactulose 10 gram/15 mL oral 30 ml PO BIDP PRN Constipation 06/07/24 06/21/24 solution magnesium 200 mg tablet 400 mg PO DAILY 06/07/24 06/21/24 ferrous sulfate 325 mg (65 mg 325 mg PO BID 06/08/24 06/21/24 iron) tablet multivitamin 1 tab PO DAILY 06/08/24 06/21/24 Previous Rx's ?Medication ?Instructions ?Recorded atorvastatin 40 mg tablet 40 mg PO HS 30 days #30 tabs 04/26/24 glipizide 5 mg tablet 5 mg PO DAILY 30 days #30 tabs 04/26/24 potassium chloride 20 mEq 40 meq (2 x 20 mEq) PO DAILY 30 04/26/24 tablet,extended days #60 tabs release(part/cryst) (Klor-Con M) sertraline 100 mg tablet 100 mg PO DAILY 30 days #30 tabs 04/26/24 trazodone 50 mg tablet 50 mg PO HSP PRN Sleep 30 days #30 04/26/24 tabs pantoprazole 40 mg tablet,delayed 40 mg PO BID 30 days #60 tabs 06/08/24 release Allergies Allergy/AdvReac Type Severity Reaction Status Date / Time latex (LATEX) Allergy Intermediate I-ITCHING Verified 06/21/24 11:18 Penicillins (PENICILLINS) Allergy Mild I-RASH Verified 06/21/24 11:18 Sulfa (Sulfonamide Allergy Unknown I-RASH Verified 06/21/24 11:18 Antibiotics) (SULFA (SULFONAMIDE ANTIBIOTICS)) Tetanus Vaccines and Toxoid Allergy Unknown Verified 06/21/24 11:18 (TETANUS VACCINES & TOXOID) [facility] Disclaimer: The information contained in this section may have been updated after the patient was seen, as this information can be updated by other users. Medical History (Updated 07/23/24 @ 02:06 by Sandra Franks MD) Lung mass Duodenal erosion GI bleed History of vaginal delivery Hemiparesis affecting right side as late effect of cerebrovascular accident Anemia Knee osteoarthritis GERD (gastroesophageal reflux disease) Abnormal radiologic finding of lung field Anxiety Pain in right wrist Right radial fracture Osteoarthritis History of TIA (transient ischemic attack) Elbow fracture, right Fracture of wrist TIA (transient ischemic attack) Bilateral carotid bruits PAD (peripheral artery disease) HLD (hyperlipidemia) CAD (coronary artery disease) HTN (hypertension) Carotid artery disease Surgical History History of cataract surgery Hx of shoulder surgery History of total knee arthroplasty History of left-sided carotid endarterectomy Family History Other No significant family history Social History Smoking Status: Never smoker second hand exposure: Yes alcohol intake: never counseling provided: none substance use type: denies use current occupational status: retired Travel in the last 8 weeks: None household members: spouse housing: house current occupational exposures/hazards: No caffeine: Yes Have you lived/traveled outside [place] in past 30 days?: No Contact w/someone who lives/traveled outside US past 30 days?: No Exposure to someone with infectious disease in past 14 days?: No Do you have a fever (greater than 100.4 F or 38 C)?: No Have you tested positive for COVID-19: No Exposed to someone with COVID-19 in past 14 days?: No Do you have a sore throat?: No Do you have a cough?: No Do you have any weakness?: No Do you have any diarrhea?: No Are you experiencing any unusual bleeding?: No Do you have any muscle aches/pain?: No Do you have any abdominal pain?: No Are you experiencing loss of taste or smell?: No Other Medical History Have you received the Flu Vaccine for this season: No Have you received the Pneumonia Vaccine: No (unknown) ROS Obtained: Yes unobtainable due to mental status Physical Exam General General appearance: obtunded Comment: Appears older than stated age, minimally responsive, chronically ill-appearing Head Head exam: atraumatic and normocephalic Eye Eye exam: Present PERRL (Pupils 2 mm bilaterally, reactive) and EOMI (Patient has full extraocular movements but is not following commands. Eyes are showing roving movements); Absent conjunctival injection or discharge ENT ENT exam: Present mucous membranes moist Neck Neck exam: Present normal inspection and full ROM Chest Chest inspection: Present symmetric chest wall rise Respiratory Respiratory exam: Present respiratory distress (Shallow, sonorous respirations); Absent normal lung sounds bilaterally (Rhonchi/Rales on sonorous respirations), wheezes or stridor Cardiovascular Cardiovascular exam: Present normal rhythm and tachycardia Abdominal Exam Abdominal exam: Present soft; Absent distention or tenderness External exam: Present normal external exam Extremities Exam Extremities exam: Present other (No evidence of trauma); Absent tenderness or joint swelling Neurological Exam Neurological exam: Present other (GCS 6 on arrival, eyes are open patient is otherwise nonresponsive, nonverbal, not responding to any stimuli) Skin Skin exam: Present warm, dry and other (No pressure wounds appreciated) Medical Decision Making Medical Records Medical records reviewed: Yes I reviewed the patient's medical records. Screening: Per USPSTF and CDC recommendations, given the prevalence of disease in our region, it is our hospital?s policy to screen for HIV and viral Hepatitis for all patients aged 18 and over and those with ongoing risk factors. MR Comment: Patient was discharged from the hospital on June 08, 2024 from an admission for anemia, GI bleed. EGD did not show active bleeding but patient did have gastritis. Previous imaging demonstrates patient has lung lesions concerning for malignancy. Dank Inquiry Pt receiving controlled substance: No Vital Signs: 07/22/24 23:51 07/22/24 23:55 07/23/24 00:15 Temperature 97.9 F Temperature Source Oral Pulse Rate 107 H Pulse Rate [Right Radial] 104 H Respiratory Rate 20 22 20 Blood Pressure 167/70 H 165/76 H Blood Pressure [Right Arm] 167/70 H Blood Pressure Mean [Right Arm] 102 Blood Pressure Source [Right Arm] Automatic Cuff Blood Pressure Position [Right Arm] Supine 02 Sat by Pulse Oximetry 97 97 97 Oxygen Delivery Method Nasal Cannula Oxygen Flow Rate (LPM) 4 Lab Data Lab Results 07/22/24 00:14: Urine Color Yellow, Urine Appearance Slightly cloudy, Urine pH 6.0, Ur Specific [place] 1.020, Urine Protein 100, Urine Glucose (UA) 100, Urine Ketones Negative, Urine Blood Trace-i, Urine Nitrate Negative, Urine Bilirubin Negative, Urine Urobilinogen 0.2, Ur Leukocyte Esterase Moderate, Urine RBC 5- 10, Urine WBC 20-50, Ur Squamous Epith Cells Occasional, Urine Bacteria 3+, Urine Opiates Screen Negative, Urine Methadone Screen Negative, Ur Barbituates Screen Negative, Ur Phencyclidine Scrn Negative, Ur Amphetamines Screen Negative, U Benzodiazepines Scrn Negative, Urine Cocaine Screen Negative, U Marijuana (THC) Screen Negative 07/22/24 11:24: WBC 21.4 H*, RBC 4.11 L, Hgb 11.5 L, Hct 37.4, MCV 91.0, MCH 28.0, MCHC 30.7 L, RDW 13.4, Plt Count 233, MPV 11.4 H, Neut % (Auto) 48.8, Lymph % (Auto) 40.7, [place] % (Auto) 5.9, Eos % (Auto) 4.0, Baso % (Auto) 0.4, N eut # (Auto) 10.4 H, Lymph # (Auto) 8.7 H, [place] # (Auto) 1.3 H, Eos # (Auto) 0.9 H, Baso # (Auto) 0.1, Total Counted 100, Neutrophils % (Manual) 43, Lymphocytes % (Manual) 44, Monocytes % (Manual) 6, Eosinophils % (Manual) 7 H, Platelet Estimate Normal, RBC Morphology Normal, PT 10.4, INR 0.92, APTT 28.8, Sodium 139, Potassium 4.1, Chloride 105, Carbon Dioxide 16 L, Anion Gap 22.1 H, BUN 22 H, Creatinine 2.00 H, Estimated GFR 24 L, Est GFR ( Amer) 29 L, Glucose 215 H, Calcium 10.2, Total Bilirubin 0.6, AST 32, ALT 25, Alkaline Phosphatase 155 H, Troponin I 0.02, Total Protein 8.0, Albumin 4.5, Globulin 3.5 H, Albumin/Globulin Ratio 1.3, Triglycerides 145, Cholesterol 129 L, LDL Cholesterol Direct 38.84 L, VLDL Cholesterol 29, HDL Cholesterol 61 H, Cholesterol/HDL Ratio 2.1, Plasma/Serum Alcohol < 10, Acetone Level None detected 07/22/24 23:32: VBG pH 7.11 L, VBG pCO2 48.6, VBG pO2 90.6 H, VBG HCO3 15.1 L, V BG Total CO2 16.6 L, VBG O2 Saturation 94.4 H, VBG Base Excess -14.4 L, VBG Lactic Acid 10.5 H 07/22/24 11:24 07/22/24 11:24 Orders (Tests/Meds): ED MEDICATIONS Generic Name Dose Route Start Last Admin Trade Name Freq PRN Reason Stop Dose Admin Sodium Chloride 10 ml 07/22/24 23:27 07/22/24 23:56 Sodium Chloride 0.9% 10ml Flush Syringe IV 08/21/24 23:26 10 ml NEEDED PRN Administration Maintain IV Site Sodium Chloride 10 ml 07/22/24 23:55 Sodium Chloride 0.9% 10ml Vial IV 08/21/24 23:54 NEEDED PRN to Dilute Lorazepam inj Sodium Chloride 10 ml 07/22/24 23:55 Sodium Chloride 0.9% 10ml Flush Syringe IV 08/21/24 23:54 NEEDED PRN Maintain IV Site Sodium Chloride 10 ml 07/22/24 23:56 Sodium Chloride 0.9% 10ml Vial IV 08/21/24 23:55 NEEDED PRN to Dilute Lorazepam inj Discontinued Medications Generic Name Dose Route Start Last Admin Trade Name Freq PRN Reason Stop Dose Admin Lactated Ringer's 1,000 mls @ 999 mls/hr 07/22/24 23:27 07/22/24 23:54 Lactated Ringer's 1000 Ml Bag IV 07/23/24 00:27 999 mls/hr .Q1H1M ONE Administration Levetiracetam 2,000 mg/ Sodium 120 mls @ 240 mls/hr 07/22/24 23:27 07/22/24 23:54 Chloride IV 07/22/24 23:28 240 mls/hr ONCE ONE Administration Iopamidol 80 ml 07/22/24 23:54 07/22/24 23:56 Iopamidol-370 (76%);100ml Bottle IV 07/22/24 23:55 80 ml ONCE ONE Administration Lorazepam 2 mg 07/22/24 23:55 07/22/24 23:57 Lorazepam 2mg/Ml Vial IV 07/22/24 23:56 2 mg ONCE ONE Administration Lorazepam 2 mg 07/22/24 23:56 07/22/24 23:58 Lorazepam 2mg/Ml Vial IV 07/22/24 23:57 2 mg ONCE ONE Administration Sodium Chloride 40 ml 07/22/24 23:54 07/22/24 23:56 0.9 % Sodium Chloride 50 Ml Vial IV 07/22/24 23:55 40 ml ONCE ONE Administration ORDERS Category Date Time Status CT angio head Stat Cat Scan 07/22/24 23:[address] angio neck Stat Cat Scan 07/22/24 23:[address] head/brain wo con Stat Cat Scan 07/22/24 23:27 Completed Acetone, Serum (Rapid) Stat Lab 07/22/24 11:24 Completed Activated Partial Thrombo Time Stat Lab 07/22/24 11:24 Completed Complete Blood Count Auto Diff Stat Lab 07/22/24 11:24 Completed Comprehensive Metabolic Panel Stat Lab 07/22/24 11:24 Completed Drug Screen,Urine Stat Lab 07/22/24 00:14 Completed Ethyl Alcohol Stat Lab 07/22/24 11:24 Completed Lipid Panel Stat Lab 07/22/24 11:24 Completed Prothrombin Time INR Stat Lab 07/22/24 11:24 Completed Troponin I Q3H Lab 07/23/24 02:30 Ordered Troponin I Q3H Lab 07/23/24 05:30 Ordered Troponin I Stat Lab 07/22/24 11:24 Completed Urinalysis and Microscopic Stat Lab 07/22/24 00:14 Completed Urine Culture Stat Micro 07/22/24 00:14 Received VBG [Venous Blood Gas] Stat RT 07/22/24 23:32 Completed ECG Request Stat Y 07/22/24 23:27 Ordered Medical Decision Narrative: In summary, this 78-year-old female with extensive past medical history and comorbidities as described in the HPI which are not at goal therapy presents to the emergency department today minimally responsive with sonorous respirations. On initial evaluation patient is tachycardic, GCS 6, roving eye movements, no other neurologic response to stimuli, sonorous respirations requiring jaw thrust, hypertensive. NPA was placed since patient had DNR/DNI EMS paperwork with her. While we were still assessing the patient and nursing was establishing IV access, patient started having fixed gaze to the left, changes in her breathing patterns, and developed lipsmacking. At this point I asked for IV Ativan. Prior to the Ativan being administered, she developed generalized tonic-clonic activity that lasted less than 1 minute before the IV Ativan had been administered and her seizure activity began to abort. Her tonic-clonic activity stopped, however she still had gaze deviation and abnormal facial movements additional Ativan was administered. ECG had been performed prior to her tonic-clonic activity starting and I personally interpreted this which demonstrates sinus tachycardia, occasional PAC, normal axis, normal MI and QTc, multiple areas of depressions but no elevations, no STEMI despite the concern for this from EMS criminology teacher. At this point I was able to contact the patient's son who is her POA and he confirmed DNR/DNI but wants all other workup performed. Differential diagnosis includes but is not limited to seizure, status epilepticus, also considered the possibility of intracranial bleed, I considered stroke however I believe patient is more likely having seizure and postictal findings causing her depressed GCS and lack of neurologic response, I did not stroke alert her but am sending her for emergent CT scans nonetheless. I also considered metabolic abnormality such as hypo or hyperglycemia, lactic acidosis, infection including bacteremia, UTI, sepsis, DKA, among others.. Based on these concerns, I ordered serum labs, emergent CT head and CT angiography of the head and neck for stroke evaluation as well as urine studies, VBG, cardiac workup. In addition to the IV Ativan that patient had received, she is receiving IV fluids as well as Keppra load initially for treatment. CT head personally turbid it does not demonstrate intracranial bleed, mass, or midline shift. See radiology read for final interpretation. I received a phone call from radiologist about CT head, CT angiography. He states that the patient has no acute intracranial abnormality, she has chronic vascular changes but no new large vessel occlusion, he does comment that patient's lung masses are growing compared to prior. VBG initially resulted demonstrating metabolic acidosis with significantly elevated lactic. This is consistent with patient having extended seizure activity. CBC resulted with significant leukocytosis WBC 21.4 likely related to seizure activity however cannot rule out infection. Patient has already received IV fluids but I am also starting her on broad-spectrum antibiotics including vancomycin and Rocephin in the setting of her potential aspiration, adventitious lung sounds, and evidence of UTI on labs. CMP demonstrates kidney dysfunction which is not significantly changed from previous, creatinine 2.0, stable from prior. Initial troponin 0.02, serial troponins pending. EtOH negative. UDS negative. Acetone negative. Labs are reassuring against DKA. Chest x-ray personally interpreted demonstrates no lobar consolidation however patient does have areas of infiltrate in the right lung which I am concerned are potentially aspiration. She is already being adequately covered with antibiotics. See radiology read for final interpretation. Repeat VBG demonstrates patient's pH and lactic have dramatically improved. She has not had any additional seizure activity in the ER. She no longer has fixed gaze or eye deviation, no abnormal movements of the face, respiratory status is improved. Her GCS is currently a 9. She opens her eyes to pain, localizes to stimuli in the extremities, and has incomprehensible sounds. She remains on oxygen support due to sonorous respirations and occasional desaturation. Her mental status is likely still depressed secondary to being postictal and receiving benzos and Keppra. Repeat ECG was performed and personally interpreted demonstrating normal sinus rhythm, rate 94, normal axis, normal MI and QTc, no STEMI. I believe patient requires transfer to higher level of care for evaluation and management of status epilepticus. I discussed results with patient's family and her POA, Devon. He would like the patient to be transferred to higher level of care for continued management and evaluation of seizures. Reached out to [facility] who was unable to take the patient's secondary to capacity. Reached out to and spoke with transfer center physician Dr. Baez. After reviewing the patient's presentation, lab and imaging findings, and current status, he graciously accepted the patient for ED to ED transfer to [facility]. Patient still has a GCS of 9 but this is significantly improved compared to her condition on arrival. She is no longer tachycardic. She has good blood pressure. She is appropriate for and stable for transfer at this time. She was transferred in stable condition via ALS ambulance to [facility] for continued evaluation Critical Care Critical Care Time Critical Care Time: Yes Attestation: On 07/22/24, the high probability of a clinically significant, sudden or life threatening deterioration of the following system(s) (neuro, hemodynamic) required my full and direct attention, intervention and personal management. The time I documented below is in addition to time spent performing reported procedures but includes the following listed in this critical care notation. Total Time Total Critical Care Time: 65
[2024-07-23 00:15] VITALS: BP 165/76; PULSE 107; RESP 20; O2SAT 97
[2024-07-23 00:19] LABS: Microscopic, Urine URINE MICROSCOPIC (MICROSCOPIC)
[2024-07-23 00:23] LABS: Bilirubin,Urine Negative (Negative); Blood, Urine TRACE-I (Negative); Color,Urine YELLOW (Yellow); Glucose,Urine (UA) 100 (Negative); Ketones,Urine Negative (Negative); Leukocyte Esterase,Urine MODERATE (Negative); Nitrate,Urine Negative (Negative); Protein,Urine 100 (Negative); Urobilinogen,Urine 0.2 EU/dl (0.2)
[2024-07-23 00:24] LABS: Appearance,Urine Slightly Cloudy (Clear)
[2024-07-23 00:30] VITALS: BP 135/99; PULSE 101; RESP 19; O2SAT 100
[2024-07-23 00:35] LABS: Bacteria,Urine 3+ /lpf; Squamous Epithelial Cell,Urine Occasional #/hpf (0-5); WBC,Urine 20-50 #/hpf (0-3)
[2024-07-23 00:36] LABS: Amphetamine/Metha Screen,Urine Negative ng/ml (<1000); Barbiturates Screen,Urine Negative ng/ml (<200)
[2024-07-23 00:37] LABS: Benzodiazepines Screen,Urine Negative ng/ml (<200); Cannabinoid Screen,Urine Negative ng/ml (<50)
[2024-07-23 00:38] LABS: Cocaine Screen,Urine Negative ng/ml (<300)
[2024-07-23 00:39] LABS: Methadone Screen,Urine Negative ng/ml (<300); Opiate Screen,Urine Negative ng/ml (<300)
[2024-07-23 00:40] LABS: Phencyclidine Screen,Urine Negative ng/ml (<25)
[2024-07-23 01:00] VITALS: BP 159/78; PULSE 96; RESP 19; O2SAT 100
--- NOTE | 2024-07-23 01:00 | ECG_ITS ---
APPROVED REPORT Exam: Resting ECG HR:94 bpm ECG Measurements Heart Rate 94 AXES CA 161 P 68 QRSd 75 QRS 42 QT 343 T 94 QTc 395 Conclusion SINUS RHYTHM NONSPECIFIC ST & T-WAVE ABNORMALITY No STEMI Electronically signed by : PEDRO VEE, 07/23/2024 07:15:42
--- NOTE | 2024-07-23 01:07 | XR_ITS ---
PROCEDURE INFORMATION: Exam: XR Chest Exam date and time: 07/23/2024 1:15 AM Age: 78 years old Clinical indication: Injury or trauma; Other: Sz; Other: Aspiration; Additional info: Sz, aspiration TECHNIQUE: Imaging protocol: Radiologic exam of the chest. Views: 1 view. COMPARISON: CT CHEST WO CON 04/23/2024 9:58 AM FINDINGS: Lungs: There is no focal consolidation. There is no mass seen. Pleural spaces: There are no pleural effusions. No pnuemothorax. Heart/Mediastinum: The heart is moderately enlarged. Bones/joints: Unremarkable. There is no acute fracture present. IMPRESSION: 1. Moderate cardiomegaly. 2. No evidence for acute cardiac or pulmonary process.
[2024-07-23] MEDS: CEFTRIAXONE SODIUM 2 GM in 0.9 % SODIUM CHLORIDE 100 ML IV (01:21)
[2024-07-23 01:22] LABS: VBG Base Excess -5.4 mmol/L (-2.4-2.3); VBG HCO3 21.3 mmol/L (23-30); VBG Oxygen Saturation 83.3 % (50-70); VBG PCO2 45.9 mmol/L (35-51); VBG PH 7.28 mmol/L (7.31-7.41); VBG PO2 53.5 mmol/L (28-40); VBG Total CO2 22.7 mmol/L (23-27)
--- NOTE | 2024-07-23 01:27 | PC.NURSE ---
Called [facility] for a possible transfer to . As well as [facility] for a possible transfer
[2024-07-23] MEDS: VANCOMYCIN CONSULT REQUEST 1 EACH NOTAPPLIC (01:37)
[2024-07-23] MEDS: VANCOMYCIN HCL 1,000 MG in 0.9 % SODIUM CHLORIDE 250 ML 125 MG IV (01:39)
[2024-07-23] MEDS: LACTATED RINGERS 999 ML IV (01:40)
[2024-07-23 02:00] VITALS: BP 196/94; PULSE 92; RESP 20; O2SAT 100
[2024-07-23 02:30] VITALS: BP 180/74; PULSE 91; RESP 16; TEMP 36.6; O2SAT 100
[2024-07-23 03:34] LABS: Reflex Lactic Add Lactic Reflex
--- NOTE | 2024-07-24 16:49 | PC.NURSE ---
Prelim blood culture results faxed to [place] where the pt was transferred.
== END 2024-07-23 02:20 | disposition short-term general hospital (02) ==
PROVIDERS: Emergency Provider Emergency Medicine; PCP Family Medicine
DX: G40.901 Epilepsy, unspecified, not intractable, with status epilepticus (principal); E87.20 Acidosis, unspecified; N39.0 Urinary tract infection, site not specified; I10 Essential (primary) hypertension; I25.10 Atherosclerotic heart disease of native coronary artery without angina pectoris; E78.5 Hyperlipidemia, unspecified; E11.9 Type 2 diabetes mellitus without complications; K21.9 Gastro-esophageal reflux disease without esophagitis; I63.9 Cerebral infarction, unspecified; I73.9 Peripheral vascular disease, unspecified; R91.8 Other nonspecific abnormal finding of lung field; Z72.0 Tobacco use; Z91.198 Patient's noncompliance with other medical treatment and regimen for other reason
CPT/HCPCS: 70450; 70496; 70498; 71045; 80053; 80061; 80307; 80320; 81001; 82009; 82803; 84484; 85007; 85025; 85027; 85610; 85730; 87040; 87086; 87088; 87186; 93005; 96361; 96374; 96375; 96376; 99291; J0696; J1953; J2060; J3370; J7050; J7120; Q9967

== ENCOUNTER 2024-08-01 07:39 | Outpatient (CLI) | payer MEDICARE, OTHER, SELFPAY ==
[2024-08-03 15:12] LABS: Levetiracetam (Keppra) 30.1 ug/mL (10.0-40.0)
== END 2024-08-01 23:59 | disposition home or self-care (01) ==
LOC: LAB 07:40
PROVIDERS: PCP Nurse Practitioner Family; Visit Provider Nurse Practitioner Family
DX: Z51.81 Encounter for therapeutic drug level monitoring (principal); Z79.899 Other long term (current) drug therapy
CPT/HCPCS: 36415; 80177

== ENCOUNTER 2024-08-04 15:43 | Outpatient (CLI) | payer MEDICARE, OTHER, SELFPAY ==
[2024-08-04 15:56] LABS: Microscopic, Urine URINE MICROSCOPIC (MICROSCOPIC)
[2024-08-04 16:02] LABS: Appearance,Urine CLEAR (Clear); Bilirubin,Urine Negative (Negative); Blood, Urine Negative (Negative); Color,Urine YELLOW (Yellow); Glucose,Urine (UA) TRACE (Negative); Ketones,Urine Negative (Negative); Leukocyte Esterase,Urine 1+ (Negative); Nitrate,Urine Negative (Negative); PH,Urine 6.5 (5.0-8.5); Protein,Urine 1+ (Negative); Specific Gravity, Urine 1.015 (1.005-1.030); Urobilinogen,Urine 0.2 EU/dl (0.2)
[2024-08-04 16:23] LABS: RBC,Urine Occasional #/hpf (0-3); Yeast,Urine Occasional /lpf
== END 2024-08-04 23:59 | disposition home or self-care (01) ==
PROVIDERS: PCP Family Medicine; Visit Provider Family Medicine
DX: R30.0 Dysuria (principal)
CPT/HCPCS: 81001; 87086; 87088; 87186

== ENCOUNTER 2024-08-10 07:10 | Outpatient (CLI) | payer MEDICARE, OTHER, SELFPAY ==
[2024-08-10 07:33] LABS: Basophils % 0.3 % (0.1-2.0); Eosinophils # 0.4 K/mm3 (0.0-0.4); Eosinophils % 6.4 % (0.1-12.0); Hematocrit 30.3 % (37.0-47.0); Hemoglobin 9.7 g/dL (12.2-16.2); Lymphocytes # 1.8 K/mm3 (0.7-4.5); Lymphocytes % 27.1 % (10-50); Mean Corpuscular Hemoglobin 27.3 pg (27.0-31.2); Mean Corpuscular Volume 85.4 fl (81-99); Mean Platelet Volume 10.5 fl (7.4-10.4); Monocytes # 0.4 K/mm3 (0.1-1.0); Monocytes % 5.7 % (1.7-9.3); Neutrophils % 60.3 % (37.0-80.0); Nucleated Red Blood Cells # 0 10^3/uL; Nucleated Red Blood Cells % 0 %; Platelet Count 187 K/mm3 (142-424); Red Blood Count 3.55 M/mm3 (4.20-5.40); Red Cell Distribution Width 13.2 % (11.5-17.5); Red Cell Distribution Width-SD 41.6 fL; White Blood Count 6.6 K/mm3 (4.8-10.8)
[2024-08-13 16:28] LABS: Levetiracetam (Keppra) 19.4 ug/mL (10.0-40.0)
== END 2024-08-10 23:59 | disposition home or self-care (01) ==
PROVIDERS: PCP Family Medicine; Visit Provider Family Medicine
DX: D64.9 Anemia, unspecified (principal); G40.909 Epilepsy, unspecified, not intractable, without status epilepticus; Z79.899 Other long term (current) drug therapy
CPT/HCPCS: 36415; 80177; 85025

== ENCOUNTER 2024-08-17 15:39 | Outpatient (CLI) | payer MEDICARE, OTHER, SELFPAY ==
[2024-08-17 15:50] LABS: Microscopic, Urine URINE MICROSCOPIC (MICROSCOPIC)
[2024-08-17 15:53] LABS: Appearance,Urine CLEAR (Clear); Bilirubin,Urine Negative (Negative); Blood, Urine TRACE-I (Negative); Color,Urine YELLOW (Yellow); Glucose,Urine (UA) Negative (Negative); Ketones,Urine Negative (Negative); Leukocyte Esterase,Urine 3+ (Negative); Nitrate,Urine POSITIVE (Negative); Protein,Urine 1+ (Negative); Specific Gravity, Urine 1.015 (1.005-1.030); Urobilinogen,Urine 0.2 EU/dl (0.2)
[2024-08-17 16:28] LABS: Bacteria,Urine 4+ /lpf; WBC,Urine 50-100 #/hpf (0-3); Yeast,Urine 3+ /lpf
== END 2024-08-17 23:59 | disposition home or self-care (01) ==
LOC: LAB.DROPOF 15:41
PROVIDERS: PCP Family Medicine; Visit Provider Family Medicine
DX: R30.0 Dysuria (principal)
CPT/HCPCS: 81001; 87086; 87088; 87186

== ENCOUNTER 2024-08-31 07:23 | Outpatient (CLI) | payer MEDICARE, OTHER, SELFPAY ==
[2024-08-31 07:45] LABS: Basophils % 0.2 % (0.1-2.0); Eosinophils # 0.2 Kmm3 (0.0-0.4); Eosinophils % 2.1 % (0.1-12.0); Hemoglobin 9.5 g/dL (12.2-16.2); Lymphocytes # 1.3 K/mm3 (0.7-4.5); Lymphocytes % 15.4 % (10-50); Mean Corpuscular HGB Conc 32.8 g/dL (31.8-35.4); Mean Corpuscular Hemoglobin 27.1 pg (27.0-31.2); Mean Corpuscular Volume 82.9 fl (81-99); Mean Platelet Volume 11.3 fl (7.4-10.4); Monocytes # 0.5 K/mm3 (0.1-1.0); Monocytes % 5.7 % (1.7-9.3); Neutrophils # 6.5 K/mm3 (1.8-7.8); Neutrophils % 76.1 % (37.0-80.0); Nucleated Red Blood Cells # 0 10^3/uL; Nucleated Red Blood Cells % 0 %; Platelet Count 181 K/mm3 (142-424); Red Cell Distribution Width 13.2 % (11.5-17.5); Red Cell Distribution Width-SD 40.1 fL; White Blood Count 8.5 K/mm3 (4.8-10.8)
[2024-08-31 07:56] LABS: Alanine Aminotransferase 10 U/L (12-78); Albumin Level 3.2 g/dl (3.5-5.0); Alkaline Phosphatase 105 U/L (38-126); Anion Gap 6.8 mEq/L (5-15); Aspartate Amino Transferase 17 U/L (14-36); Bilirubin,Total 0.5 mg/dl (0.2-1.3); Blood Urea Nitrogen 20 mg/dl (7-17); Calcium 9.5 mg/dl (8.4-10.2); Carbon Dioxide 26 mmol/L (22.0-30.0); Chloride 106 mmol/L (98-107); Estimated Glomerular Filt Rate 31 ml/min (>60); GFR (African American) 38 ML/MIN (>60); Globulin 3.3 g/dL (1.3-3.2); Glucose 126 mg/dl (74-100); Potassium 3.8 mmoL/L (3.5-5.1); Sodium 135 mmol/L (136-145); Total Protein,Serum 6.5 g/dl (6.3-8.2)
[2024-08-31 08:08] LABS: Free T4 (Free Thyroxine) 1.21 ng/dl (0.78-2.19)
[2024-08-31 08:10] LABS: 25-OH Vitamin D, Total 42.6 ng/mL (30-100)
[2024-08-31 08:26] LABS: Thyroid Stimulating Hormone 0.42 uIU/mL (0.465-4.68)
== END 2024-08-31 23:59 | disposition home or self-care (01) ==
PROVIDERS: PCP Nurse Practitioner Family; Visit Provider Nurse Practitioner Family
DX: I50.30 Unspecified diastolic (congestive) heart failure (principal); D64.9 Anemia, unspecified
CPT/HCPCS: 36415; 80053; 82306; 84439; 84443; 85025

== ENCOUNTER 2024-10-24 07:37 | Outpatient (CLI) | payer MEDICARE, OTHER, SELFPAY ==
--- OUTSIDE RECORDS SUMMARY | 2024-10-24 07:41 | XMS_ITS | Clinical Summary ---
Author Organization [facility] Address [address] [place] [address] Care Team Providers Care Live Ammunition Inspector Name Role Phone Haroldo Key MD Primary Care Provider [phone] Allergies Active Allergy Reactions Criticality Noted Date Comments Latex Unknown - Patient st ates they do not know rxn details Low 11/25/2016 Rash Penicillins Rash,Itching Medium 03/08/2017 Mild Reaction Sulfa Drugs Rash,Unknown - Patie nt states they do not know rxn details Low 11/25/2016 Tetanus Toxoids Unknown - Patient st ates they do not know rxn details Low 11/25/2016 Local swelling and fever Medications * This document contains information received from the source organization and may not represent a complete record from that organization. atorvastatin (Lipitor) 40 MG tablet Take 1 tablet (40 mg) by mouth 1 (one) time each day. 03/30/2017 Active potassium chloride CR (Klor-Con M20) 20 MEQ ER tablet Take 2 tablets (40 mEq) by mouth daily. 06/25/2024 Active pantoprazole (Protonix) 40 MG EC tablet Take 1 tablet (40 mg) by mouth in the morning and 1 tablet (40 mg) before bedtime. 06/08/2024 Active sertraline (Zoloft) 100 MG tablet Take 1 tablet (100 mg) by mouth 1 (one) time each day. Active multivitamin (Theragran-M) tablet Take 1 tablet by mouth 1 (one) time each day. Active ferrous sulfate 325 (65 Fe) MG tablet Take 1 tablet (325 mg) by mouth in the morning and 1 tablet (325 mg) before bedtime. Active magnesium oxide (Mag-Ox) 400 mg tablet Take 1 tablet (400 mg) by mouth daily. Active acetaminophen (Tylenol) 500 MG tablet Take 1 tablet (500 mg) by mouth every 6 hours as needed for fever or pain. Active levETIRAcetam (Keppra) 500 MG tablet Take 1 tablet by mouth in the morning and 1 tablet before bedtime. 180 tablet 07/27/2024 Active Active Problems Problem Noted Date Diagnosed Date Acute encephalopathy 07/23/2024 Encounters * This document contains information received from the source organization and may not represent a complete record from that organization. Date Type Department Care Team Description 07/24/2024 Travel from Last 3 Months Immunizations Immunization Administration Dates Next Due Tdap 12/05/2018 Family History Medical History Relation Name Comments Hypertension Father Lung disease Father Diabetes Mother Heart attack Mother Hypertension Mother Stroke Mother Relation Name Status Comments Father Mother Social History Tobacco Use Types Packs/Day Years Used Date Smoking Tobacco: Every Day Humiliation, Afraid, Rape, and Kick questionnair e Answer Date Recorded Within the last year, have y ou been afraid of your partner or ex-partner? No 07/25/2024 Within the last year, have y ou been humiliated or emotionally abused in other ways by your partner or ex-partner? No Within the last year, have y ou been kicked, hit, slapped, or otherwise physically hurt by your partner or ex-partner? No 07/25/2024 Within the last year, have y ou been raped or forced to have any kind of sexual activity by your partner or ex-partner? No 07/25/2024 Social Connection and Isolation Panel Answer Date Recorded In a typical week, how many times do you talk on the phone with family, friends, or neighbors? More than three times a week 07/25/2024 How often do you get togethe r with friends or relatives? More than three times a week 07/25/2024 How often do you attend [facility] or synagogue services? Never 07/25/2024 Do you belong to any clubs o r organizations such as anabaptist groups, unions, fraternal or athletic groups, or school groups? No 07/25/2024 How often do you attend meet ings of the clubs or organizations you belong to? Never 07/25/2024 Are you , , di vorced, , never , or living with a partner? 07/25/2024 AUDIT-C Answer Date Recorded Q1: How often do you have a drink containing alcohol? Never 07/25/2024 Q2: How many drinks containi ng alcohol do you have on a typical day when you are drinking? Patient does not drink Q3: How often do you have si x or more drinks on one occasion? Never 07/25/2024 [facility] - Occupational Stress Questionnaire Answer Date Recorded Do you feel stress - tense, restless, nervous, or anxious, or unable to sleep at night because your mind is troubled all the time - these days? Only a little 07/25/2024 Exercise Vital Sign Answer Date Recorde d On average, how many days pe r week do you engage in moderate to strenuous exercise (like a brisk walk)? 0 days 07/25/2024 On average, how many minutes do you engage in exercise at this level? 0 min 07/25/2024 Hunger Vital Sign Answer Date Recorded Within the past 12 months, y ou worried that your food would run out before you got the money to buy more. Never true 07/26/19 25 Within the past 12 months, t he food you bought just didn't last and you didn't have money to get more. Never true 07/25/2024 PRAPARE - Transportation Answer Date Re corded In the past 12 months, has l ack of transportation kept you from medical appointments or from getting medications? No 07/01 In the past 12 months, has l ack of transportation kept you from meetings, work, or from getting things needed for daily living? No 07/25/2024 Housing Stability Vital Sign Answer Jeff e Recorded In the last 12 months, was t here a time when you were not able to pay the mortgage or rent on time? No 07/25/2024 In the past 12 months, how m any times have you moved where you were living? 0 07/25/2024 At any time in the past 12 m [facility], were you homeless or living in a alf (including now)? No 07/25/2024 Utilities Answer Date Recorded In the past 12 months has e [employer], gas, oil, or water company threatened to shut off services in your home? No 07/25/2024 Comments Unknown Sex and Gender Information Value Date Recorded Sex Assigned at Not on file Legal Sex Female 8:43 PM EDT Gender Identity Not on file Sexual Orientation Not on file Last Filed Vital Signs Vital Sign Reading Time Taken Comments Blood Pressure 149/77 07/27/2024 3:39 AM EDT Pulse 68 07/27/2024 3:39 AM EDT Temperature 36.3 C (97.3 F) 07/27/2024 7:49 AM EDT Respiratory Rate 28 07/26/2024 6:45 PM EDT Oxygen Saturation 93% 07/27/2024 3:39 AM EDT Inhaled Oxygen Concentration - - Weight 61.1 kg (134 lb 11.2 oz) 07/23/2024 3:31 AM EDT Height 152.4 cm (5') 07/27/2024 8:00 AM EDT Body Mass Index 26.31 07/23/2024 3:31 AM EDT Plan of Treatment Upcoming Encounters Date Type Department Care Team (Late st Contact Info) Description 11/12/2024 9:00 AM EDT [facility] Visit [facility] [address] [place] [address] Lucila Johnson, TYPE [employer] AND [employer]GMENT ASSEMBLER [address] [place] [address] Health Maintenance Due Date Last Done Comments [facility]-Bone Density Scan 1945 [facility]-Depression Screening 1945 [facility]-Medicare Annual Wellness (AWV) 1945 [facility]-Infant/Child/Adol SDOH Screenings 1945 Diabetes: Dental Exam 1956 [facility]-Pneumococcal Vaccine: 50 + Years (1 of 2 - PCV) 1965 [facility]-Zoster Vaccines (1 of 2) 1996 [facility]-RSV Vaccine: 60+ Years o r (1 - 1-dose 75+ series) 2021 [id number] Vaccine (1 - 20 24-25 season) 2024 [facility]-Influenza Vaccine (Seaso n Ended) 2024 [facility]-Diabetes: Hemoglobin A1C 01/20/2025 07/23/2024 [facility]- SDOH Screenings 01/25/2025 [facility]-Adult SDOH Screenings 01/25/2025 07/25/2024 [facility]-DTaP,Tdap,and Td Vaccine s (2 - Td or Tdap) 12/05/2028 12/05/2018 [facility]-Hepatitis C Screening Completed 07/23/2024 [facility]-Obesity Intervention Completed 07/23/2024 HPV Vaccines Aged Out No longer eligi ble based on patient's age to complete this topic [facility]-HIB Vaccines Aged Out No longer e ligible based on patient's age to complete this topic [facility]-Hepatitis A Vaccines Aged Out No longer eligible based on patient's age to complete this topic [facility]-IPV Vaccines Aged Out No longer e ligible based on patient's age to complete this topic [facility]-Rotavirus Vaccines Aged Out No lo nger eligible based on patient's age to complete this topic Procedures Procedure Name Priority Date/Time Associated Diagnosis Comments POCT GLUCOSE METER UNSOLICITED RESULTS Routine 07/27/2024 8:20 AM EDT EXTRA TUBE LAVENDER TOP Routine 07/27/2024 7:21 AM EDT EXTRA TUBES Routine 07/27/2024 7:21 AM EDT BASIC METABOLIC PANEL, PLASMA Routine 07/27/2024 5:55 AM EDT POCT GLUCOSE METER UNSOLICITED RESULTS Routine 07/26/2024 8:01 PM EDT POCT GLUCOSE METER UNSOLICITED RESULTS Routine 07/26/2024 5:18 PM EDT POCT GLUCOSE METER UNSOLICITED RESULTS Routine 07/26/2024 12:14 PM EDT POCT GLUCOSE METER UNSOLICITED RESULTS Routine 07/26/2024 8:28 AM EDT CBC W/O DIFFERENTIAL Routine 07/26/2024 3:16 AM EDT BASIC METABOLIC PANEL, PLASMA Routine 07/26/2024 3:16 AM EDT POCT GLUCOSE METER UNSOLICITED RESULTS Routine 07/25/2024 7:46 PM EDT POCT GLUCOSE METER UNSOLICITED RESULTS Routine 07/25/2024 5:09 PM EDT INSERT PERIPHERAL IV Routine 07/25/2024 2:35 PM EDT POCT GLUCOSE METER UNSOLICITED RESULTS Routine 07/25/2024 12:41 PM EDT POCT GLUCOSE METER UNSOLICITED RESULTS Routine 07/25/2024 5:53 AM EDT PHOSPHORUS, PLASMA Add-On 07/25/2024 3: 00 AM EDT MAGNESIUM, PLASMA Add-On 07/25/2024 3:0 0 AM EDT SEDIMENTATION RATE, AUTOMATED Routine 07/25/2024 3:00 AM EDT CBC W/O DIFFERENTIAL Routine 07/25/2024 3:00 AM EDT BASIC METABOLIC PANEL, PLASMA Routine 07/25/2024 3:00 AM EDT POCT GLUCOSE METER UNSOLICITED RESULTS Routine 07/25/2024 12:17 AM EDT POCT GLUCOSE METER UNSOLICITED RESULTS Routine 07/24/2024 6:22 PM EDT MR HEAD WO IV CONTRAST Routine 5:40 PM EDT POCT GLUCOSE METER UNSOLICITED RESULTS Routine 07/24/2024 12:36 PM EDT ECHO, ADULT TRANSTHORACIC COMPLETE Routine 07/24/2024 12:02 PM EDT BLOOD GAS PANEL, VENOUS Routine 07/24/2024 11:15 AM EDT FL MODIFIED BARIUM SWALLOW Routine 07/24/2024 10:40 AM EDT POCT GLUCOSE METER UNSOLICITED RESULTS Routine 07/24/2024 5:57 AM EDT C-REACTIVE PROTEIN, PLASMA Add-On 07/24/2024 2:36 AM EDT BASIC METABOLIC PANEL, PLASMA Routine 07/24/2024 2:36 AM EDT CBC W/O DIFFERENTIAL Routine 07/24/2024 2:36 AM EDT XR CHEST 1 VIEW Routine 07/24/2024 2:00 AM EDT POCT GLUCOSE METER UNSOLICITED RESULTS Routine 07/24/2024 12:02 AM EDT HEMOGLOBIN A1C STAT 07/23/2024 4:28 AM EDT HEPATITIS C ANTIBODY - ED W/REFLEX TO HCV QUANT PCR STAT 07/23/2024 4:22 AM EDT from Last 3 Months or Most Recently Relevant to Health Maintenance Results * POCT glucose meter (07/27/2024 8:20 AM EDT) Only the most recent of14 resultswithin the time period is included. POCT Glucose 99 74 - 99 mg/dL 07/27/2024 8:23 AM EDT [facility] Comment:Accuracy of a glucos e result obtained from a capillary whole blood specimen relies upon adequate, non-compromised capillary blood flow. If the capillary glucose result is not consistent with the patient's clinical signs and symptoms, glucose testing should be repeated with either an arterial or venous sample on the glucometer or sent to the main labortory for testing. Comment 07/27/2024 8:23 AM EDT [facility] Gyn ID Yue Rodriguez 025 8:23 AM EDT [facility]ALTHCARE [facility] Device ID [id number] 07/27/2024 8:23 AM EDT [facility] Specimen Type POC Capillary 07/27/2024 8:23 AM EDT [facility] Blood Capillary blood specimen / Unknown 07/27/2024 8:20 AM EDT 07/27/2024 8:23 AM EDT us Sheron Navarro MD LAB POINT OF CARE TE ST DOCKED DEVICE UNSOLICITED RESULTS Final Result Performing Organization Address City/[facility]/ZIP Co de Phone Number [facility]ARE [facility] [address] [place] [address] * Lavender Top (07/27/2024 7:21 AM EDT) Pathologist [facility] Extra Hold for add-ons 07/27/2024 10:01 AM EDT [facility] Comment:Auto resulted. Blood Venous blood specimen / Unknown Venipuncture / Unknown 07/27/2024 7:21 AM EDT 07/27/2024 7:20 AM EDT us Sheron Navarro MD LAB BLOOD ORDERABLES Final Re sult [facility] [address] [place] [address] * (ABNORMAL) Basic metabolic panel (07/27/2024 5:55 AM EDT) Only the most recent of4 resultswithin the time period is included. Glucose, Plasma 117(H) 74 - 99 mg/dL 07/27/2024 6:25 AM EDT [facility] BUN, Plasma 27(H) 8 - 23 mg/dL 07/27/2024 6:25 AM EDT [facility] Creatinine, Plasma 1.82(H) 0.60 - 1.10 mg/dL 07/27/2024 6:25 AM EDT [facility] BUN/Creatinine Ratio 15 07/27/2024 6:25 AM EDT [facility] Sodium, Plasma 139 136 - 145 mmol/L 07/27/2024 6:25 AM EDT [facility] Potassium, Plasma 3.7 3.6 - 4.9 mmol/L 07/27/2024 6:25 AM EDT [facility] Chloride, Plasma 105 97 - 107 mmol/L 07/27/2024 6:25 AM EDT [facility] CO2, Plasma 24 22 - 29 mmol/L 07/27/2024 6:25 AM EDT [facility] Anion Gap 10 6 - 16 mmol/L 07/27/2024 6:25 AM EDT [facility] Total Calcium, Plasma 9.3 8.9 - 10.2 mg/dL 07/27/2024 6:25 AM EDT [facility] eGFRcr 28.3 mL/min/1.7 3m*2 07/27/2024 6:25 AM EDT [facility] Comment:Reported eGFRcr in m L/min/1.73m2 is based the CKD-EPI 2020 equation that does not use a race coefficient. Blood Venous blood specimen / Unknown Venipuncture / Unknown 07/27/2024 5:55 AM EDT 07/27/2024 6:01 AM EDT us Sheron Navarro MD LAB BLOOD ORDERABLES Final Re sult [facility] [address] [place] [id number] * (ABNORMAL) CBC W/O Differential (07/26/2024 3:16 AM EDT) Only the most recent of3 resultswithin the time period is included. WBC Count 7.98 3.70 - 10.30 10*3/uL LAB HEMATOLOGY METHOD 07/26/2024 3:34 AM EDT [facility] RBC Count 3.33(L) 3.90 - 5.20 10*6/uL LAB HEMATOLOGY METHOD 07/26/2024 3:34 AM EDT [facility] HGB 9.2(L) 11.2 - 15.7 g/dL LAB HEMATOLOGY METHOD 07/26/2024 3:34 AM EDT [facility] HCT 29.4(L) 34.0 - 45.0 % LAB HEMATOLOGY METHOD 07/26/2024 3:34 AM EDT [facility] Platelet Count 144(L) 155 - 369 10*3/uL LAB HEMATOLOGY METHOD 07/26/2024 3:34 AM EDT [facility] MCV 88 79 - 98 fL LAB HEMATOLOGY METHOD 07/26/2024 3:34 AM EDT [facility] MCH 27.6 26.0 - 32.0 pg LAB HEMATOLOGY METHOD 07/26/2024 3:34 AM EDT [facility] MCHC 31.3 30.7 - 35.5 g/dL LAB HEMATOLOGY METHOD 07/26/2024 3:34 AM EDT [facility] RDW 13.5 11.5 - 14.5 % LAB HEMATOLOGY METHOD 07/26/2024 3:34 AM EDT [facility] MPV 11.3 8.8 - 12.5 fL LAB HEMATOLOGY METHOD 07/26/2024 3:34 AM EDT [facility] nRBC 0.0 <=0.0 per 100 WBCs LAB HEMATOLOGY METHOD 07/26/2024 3:34 AM EDT [facility] Blood Venous blood specimen / Unknown Venipuncture / Unknown 07/26/2024 3:16 AM EDT 07/26/2024 3:30 AM EDT Sheron Navarro MD LAB BLOOD ORDERABLES Final Re sult Performing Organization Address City/State/[facility] Co de Phone Number [facility] [address] [place] [phone] * PERIPHERAL IV (SMARTFORM LINK) (07/25/2024 2:35 PM EDT) Narrative Hubert Napier RN - 07/25/2024 2:35 PM EDT Hubert Napier RN 07/25/2024 3:10 PM Insert peripheral IV Performed by: Hubert Napier, RN Authorized by: Sheron Navarro MD Hand hygiene: Hand hygiene performed prior to insertion Inserted using aseptic techniques: Yes Preparation: Skin prepped with chg Orientation: Left and anterior Location: Forearm Catheter placed: Peripheral IV Catheter size: 20g/2.00in Line Technique: Ultrasound Guidance Number of attempts: 1 IV flushes: Without difficulty and positive blood return noted and IV luer locked Patient tolerance: Patient tolerated the procedure well Patient comfort measures used: Position of comfort IV site covered with: Transparent semipermeable dressing Education provided to: Patient Comments: All pertinent images were uploaded to PACS. us Sheron Navarro MD IV THERAPY ORDERABLES Final R esult * (ABNORMAL) Sedimentation Rate, Automated (07/25/2024 3:00 AM EDT) Sedimentation Rate 37(H) <30 mm/hr 2024 3:26 AM EDT [facility] Blood Venous blood specimen / Unknown Venipuncture / Unknown 07/25/2024 3:00 AM EDT 07/25/2024 3:22 AM EDT us Sheron Navarro MD LAB BLOOD ORDERABLES Final Re sult [facility] [address] [place] [address] * Phosphorus (07/25/2024 3:00 AM EDT) Phosphorus, Plasma 4.0 2.5 - 4.5 mg/dL 07/25/2024 9:12 AM EDT [facility] Blood Venous blood specimen / Unknown Venipuncture / Unknown 07/25/2024 3:00 AM EDT 07/25/2024 3:21 AM EDT us Sheron Navarro MD LAB BLOOD ORDERABLES Final Re sult [facility] [address] [place] [address] * Magnesium (07/25/2024 3:00 AM EDT) Magnesium, Plasma 2.2 1.9 - 2.4 mg/dL 07/25/2024 9:12 AM EDT [facility] Blood Venous blood specimen / Unknown Venipuncture / Unknown 07/25/2024 3:00 AM EDT 07/25/2024 3:21 AM EDT us Sheron Navarro MD LAB BLOOD ORDERABLES Final Re sult [facility] [address] [place] [address] * MR Head wo IV Contrast (07/24/2024 5:40 PM EDT) Anatomical Region Laterality Modality Head Magnetic Resonan ce Impressions 07/24/2024 8:23 PM EDT 1. No acute intracranial abnormalities. 2. Multifocal chronic ischemic changes. CRITICAL RESULT: No. COMMUNICATION: Per this written report. Drafted by Matt Yao MD on 07/24/2024 8:21 PM Final report signed by Matt Yao MD on 07/24/2024 8:23 PM Narrative 07/24/2024 8:23 PM EDT CLINICAL INDICATION: Seizure, new-onset, no history of trauma TECHNIQUE: Multiplanar multiecho sequences were performed through the brain utilizing T1 and T2 weighting, as well as either axial susceptibility weighted or gradient echo sequences, and axial diffusion weighted images. Imaging was performed without contrast administration. COMPARISON: None. FINDINGS: Diagnostic Quality: Adequate. Moderate motion artifact on several sequences limits evaluation. Encephalomalacia in the left superior frontal gyrus. Atrophy of the left caudate head with chronic hemosiderin staining. Moderate chronic small vessel ischemic disease in the cerebral white matter. There is no abnormal parenchymal susceptibility artifact or restricted diffusion. Vascular Flow Voids: Normal. Paranasal Sinuses and Mastoid Air Cells: Mild mucosal thickening in the sphenoid sinuses. Mild right mastoid effusion. Orbits: No definite masses within the limitations of the study. Extracranial Findings: None. Craniocervical Junction and Skull Base: No tonsillar ectopia or mass is present. Procedure Note Matt Yao MD - 07/24/2024 CLINICAL INDICATION: Seizure, new-onset, no history of trauma TECHNIQUE: Multiplanar multiecho sequences were performed through the brain utilizingT1 and T2 weighting, as well as either axial susceptibility weighted orgradient echo sequences, and axial diffusion weighted images. Imaging wasperformed without contrast administration. COMPARISON: None. FINDINGS: Diagnostic Quality: Adequate. Moderate motion artifact on severalsequences limits evaluation. Encephalomalacia in the left superior frontal gyrus. Atrophy of the leftcaudate head with chronic hemosiderin staining. Moderate chronic smallvessel ischemic disease in the cerebral white matter. There is no abnormalparenchymal susceptibility artifact or restricted diffusion. Vascular Flow Voids: Normal. Paranasal Sinuses and Mastoid Air Cells: Mild mucosal thickening in thesphenoid sinuses. Mild right mastoid effusion. Orbits: No definite masses within the limitations of the study. Extracranial Findings: None. Craniocervical Junction and Skull Base: No tonsillar ectopia or mass ispresent. IMPRESSION: 1. No acute intracranial abnormalities. 2. Multifocal chronic ischemic changes. CRITICAL RESULT: No. COMMUNICATION: Per this written report. Drafted by Matt Yao MD on 07/24/2024 8:21 PM Final report signed by Matt Yao MD on 07/24/2024 8:23 PM us Sheron Navarro MD IMG MRI PROCEDURES Final Resu lt * ECHO, ADULT TRANSTHORACIC COMPLETE (07/24/2024 12:02 PM EDT) Height 152.0 MAYRA ISCV Weight 61.0 MAYRA ISCV BSA 1.57 m2 MAYRA ISCV LVIDd 48 mm MAYRA ISCV LVIDs 30 mm MAYRA ISCV IVSd 12 mm MAYRA ISCV LVPWd 11 mm MAYRA ISCV LV MASS(C)D 210 g MAYRA ISCV LV RWT 0.48 mm MAYRA ISCV LV EDV(MOD-4ch) 107 mL MAYRA ISCV LV ESV(MOD4ch) 42 mL MAYRA ISCV EF(MOD-sp4) 61 % MAYRA ISCV LV EDV(MOD-2ch) 96 mL MAYRA ISCV LV ESV(MOD2ch) 48 mL MAYRA ISCV EF(MOD-sp2) 50 % MAYRA ISCV EDV(MOD-bp) 102 mL MAYRA ISCV ESV(MOD-bp) 45 mL MAYRA ISCV EF(MOD-bp) 56 % MAYRA ISCV MV E Vmax 77.6 cm/s MAYRA ISCV MV A Vmax 102.0 cm/s MAYRA ISCV MV E/A 0.8 cm/s MAYRA ISCV TR Vmax 126.7 cm/s MAYRA ISCV LA dimension 36 mm MAYRA ISCV TAPSE 20 mm MAYRA ISCV TR Max PG 6 mmHG MAYRA ISCV PA acc time 130 msec MAYRA ISCV mean PAP 21 mmHg MAYRA ISCV MV dec time 230 ms MAYRA ISCV MV P1/2t 67 ms MAYRA ISCV MVA(P1/2t) 3.3 cm2 MAYRA ISCV Ao Root Diam 34 mm MAYRA ISCV PA OR(ACCEL) 21.2 mmHg MAYRA ISCV LVLs ap2 6.7 mm MAYRA ISCV Anatomical Region Laterality Modality Echocardiography Narrative 07/24/2024 1:43 PM EDT Left Ventricle: The left ventricle is normal size. The proximal septum is thickened, but with no evidence of left ventricular outflow tract (LVOT) obstruction. The left ventricular systolic function is normal. The LVEF as measured by biplane volume is 56%. The diastolic function is abnormal. Pericardium: There is a moderate circumferential pericardial effusion. There is no echocardiographic evidence of cardiac tamponade. There is no recent study available for direct [id number] comparison. Left Ventricle The left ventricle is normal size. The proximal septum is thickened, but with no evidence of left ventricular outflow tract (LVOT) obstruction. The left ventricular systolic function is normal. The LVEF as measured by biplane volume is 56%. The diastolic function is abnormal. The left ventricular wall motion is normal. Right Ventricle The right ventricle is normal in size. The right ventricular systolic function is normal. Right ventricular systolic pressure is normal (<35mmHg). Left Atrium The left atrium is severely dilated by visual assessment. The interatrial septum is intact with no evidence for an atrial septal defect. Right Atrium The right atrial size is normal. IVC/SVC The IVC was not well visualized, and an assumed pressure of 8mmHg was used for calculations. Mitral Valve The mitral valve leaflets are normal in appearance with no evidence of mitral valve prolapse. There is mild mitral annular calcification. There is no mitral valve vegetation. There is no mitral regurgitation. There is no mitral stenosis. Tricuspid Valve The tricuspid valve is normal in appearance. There is no tricuspid valve vegetation. There is trace tricuspid regurgitation. There is no tricuspid stenosis. Aortic Valve The aortic valve appears to be trileaflet. There is no aortic valve vegetation. There is no valvular regurgitation. There is no hemodynamically significant valvular aortic stenosis. Pulmonic Valve The pulmonic valve is normal in appearance. There is no pulmonic valve vegetation. There is no pulmonic regurgitation. There is no pulmonic stenosis. Pericardium There is a moderate circumferential pericardial effusion. There is no echocardiographic evidence of cardiac tamponade. Great Vessels The aortic root is normal in size. The sinus of Valsalva (aortic root) diameter is 34 mm by leading edge to leading edge method. In the maximally visualized portion, the ascending aorta appears normal in size. In the maximally visualized portion, the aortic arch appears normal in size. Study Details A complete transthoracic echocardiogram using two-dimensional (2D), m-mode, color and spectral flow Doppler imaging was performed. During the study the apical, parasternal, subcostal and suprasternal view was captured. Overall the study quality was adequate. Height: 152.0 cm. Weight: 61.0 kg. BSA: 1.57 m2. Study Recommendation There is no recent study available for direct [id number] comparison. us Sheron Navarro MD CV ECHO PROCEDURES Final Resu lt * (ABNORMAL) Blood gas panel, venous (07/24/2024 11:15 AM EDT) pH, Venous 7.42 7.32 - 7.43 LAB HEMATOLOGY METHOD 07/24/2024 11:34 AM EDT [facility] pCO2, Venous 39 37 - 52 mmHg LAB HEMATOLOGY METHOD 07/24/2024 11:34 AM EDT [facility] pO2, Venous 75(H) 25 - 40 mmHg LAB HEMATOLOGY METHOD 07/24/2024 11:34 AM EDT [facility] SO2, Measured, Venous 97(H) 65 - 80 % LAB HEMATOLOGY METHOD 07/24/2024 11:34 AM EDT [facility] Base Excess, Venous 0.3 -2.0 - 3.0 mmol/L LAB HEMATOLOGY METHOD 07/24/2024 11:34 AM EDT [facility] Bicarbonate, Calculated, Venous 25 22 - 26 mmol/L LAB HEMATOLOGY METHOD 07/24/2024 11:34 AM EDT [facility] Hematocrit, Whole Blood 28.4(L) 34.0 - 45.0 % LAB HEMATOLOGY METHOD 07/24/2024 11:34 AM EDT [facility] Sodium, Whole Blood 142 136 - 145 mmol/L LAB HEMATOLOGY METHOD 07/24/2024 11:34 AM EDT [facility] Potassium, Whole Blood 3.9 3.6 - 4.9 mmol/L LAB HEMATOLOGY METHOD 07/24/2024 11:34 AM EDT [facility] Chloride, Whole Blood 109(H) 97 - 107 mmol/L LAB HEMATOLOGY METHOD 07/24/2024 11:34 AM EDT [facility] Glucose, Whole Blood 151(H) 74 - 99 mg/dL LAB HEMATOLOGY METHOD 07/24/2024 11:34 AM EDT [facility] Lactate, Venous, Whole Blood 1.2 0.5 - 2.2 mmol/L LAB HEMATOLOGY METHOD 07/24/2024 11:34 AM EDT [facility] Ionized Calcium, Whole Blood 5.1 4.6 - 5.1 mg/dL LAB HEMATOLOGY METHOD 07/24/2024 11:34 AM EDT [facility] Blood Venous blood specimen / Unknown Venipuncture / Unknown 07/24/2024 11:15 AM EDT 07/24/2024 11:30 AM EDT us Sheron Navarro MD LAB BLOOD ORDERABLES Final Re sult [facility] [address] [place] [address] * CT Modified Barium Swallow (07/24/2024 10:40 AM EDT) Anatomical Region Laterality Modality Esophagus, stomach and duodenum Digital Radiography Impressions 07/24/2024 11:23 AM EDT No penetration or aspiration of thin barium and pudding consistency barium. Please see separate note by Speech therapy team for dietary recommendations. CRITICAL RESULT: No. COMMUNICATION: Per this written report. By electronically signing this report, I, the attending physician, attest that I have personally reviewed the images/data for the above examination(s) and agree with the final edited report. Drafted by Onel Chiu MD on 07/24/2024 10:51 AM Final report signed by Demetri Chan MD on 07/24/2024 11:23 AM Narrative 07/24/2024 11:23 AM EDT CLINICAL INDICATION: dysphagia TECHNIQUE: Modified barium swallow was performed utilizing video fluoroscopy in conjunction with the Speech Pathology team. The patient ingested barium media of varying consistencies. Fluoroscopy Time: 1.2 minutes. COMPARISON: None. FINDINGS: Swallowing: No penetration or aspiration of thin barium via cup, spoon, and straw. No penetration or aspiration of pudding consistency barium. Other: Oral holding with pudding consistency barium. Patient declined cracker consistency barium. Anterior cervical osteophytes most prominent at C5-C6. Procedure Note Demetri Chan MD - 07/24/2024 CLINICAL INDICATION: dysphagia TECHNIQUE: Modified barium swallow was performed utilizing video fluoroscopy inconjunction with the Speech Pathology team. The patient ingested bariummedia of varying consistencies. Fluoroscopy Time: 1.2 minutes. COMPARISON: None. FINDINGS: Swallowing: No penetration or aspiration of thin barium via cup, spoon,and straw. No penetration or aspiration of pudding consistency barium. Other: Oral holding with pudding consistency barium. Patient declined cracker consistency barium. Anterior cervical osteophytes most prominent at C5-C6. IMPRESSION: No penetration or aspiration of thin barium and pudding consistencybarium. Please see separate note by Speech therapy team for dietaryrecommendations. CRITICAL RESULT: No. COMMUNICATION: Per this written report. By electronically signing this report, I, the attending physician, attestthat I have personally reviewed the images/data for the aboveexamination(s) and agree with the final edited report. Drafted by Onel Chiu MD on 07/24/2024 10:51 AM Final report signed by Demetri Chan MD on 07/24/2024 11:23 AM Sheron Navarro MD IMG FLUOROSCOPY PROCEDURES Fi nal Result * (ABNORMAL) C-reactive protein (07/24/2024 2:36 AM EDT) CRP, Plasma 33.7(H) <=8.0 mg/L 07/24/2024 3:58 PM EDT [facility] Blood Venous blood specimen / Unknown Venipuncture / Unknown 07/24/2024 2:36 AM EDT 07/24/2024 3:18 AM EDT Narrative [facility] - 07/24/2024 3:58 PM EDT This CRP test is appropriate for assessment of infection, systemic inflammation and/or tissue injury. To assess cardiovascular disease risk order high sensitivity CRP (CRPH). us Sheron Navarro MD LAB BLOOD ORDERABLES Final Re sult [facility] [address] [place] [address] * XR Chest 1 View (07/24/2024 2:00 AM EDT) Anatomical Region Laterality Modality Chest Digital Radiogra phy Impressions 07/24/2024 6:38 AM EDT Improved right mid and lower lung opacities. Increasing left basilar atelectasis with likely small left pleural effusion. New patchy bilateral upper lobe opacities. CRITICAL RESULT: No. COMMUNICATION: Per this written report. ATTESTATION: Not applicable. Drafted by Zainab Purcell MD on 07/24/2024 6:37 AM Final report signed by Zainab Purcell MD on 07/24/2024 6:38 AM Narrative 07/24/2024 6:38 AM EDT CLINICAL INDICATION: Worsening hypoxia TECHNIQUE: XR CHEST 1 VIEW COMPARISON: 07/23/2024 FINDINGS: Stable enlarged cardiomediastinal silhouette. Improved right mid and lower lung opacities. Increasing left basilar atelectasis with likely small left pleural effusion. New patchy bilateral upper lobe opacities. No discrete pneumothorax. Procedure Note Zainab Purcell MD - 07/24/2024 CLINICAL INDICATION: Worsening hypoxia TECHNIQUE: XR CHEST 1 VIEW COMPARISON: 07/23/2024 FINDINGS: Stable enlarged cardiomediastinal silhouette. Improved right mid and lowerlung opacities. Increasing left basilar atelectasis with likely small leftpleural effusion. New patchy bilateral upper lobe opacities. No discretepneumothorax. IMPRESSION: Improved right mid and lower lung opacities. Increasing left basilaratelectasis with likely small left pleural effusion. New patchy bilateralupper lobe opacities. CRITICAL RESULT: No. COMMUNICATION: Per this written report. ATTESTATION: Not applicable. Drafted by Zainab Purcell MD on 07/24/2024 6:37 AM Final report signed by Zainab Purcell MD on 07/24/2024 6:38 AM Riley Felix MD IMG XR PROCEDURES Final Result * (ABNORMAL) Hemoglobin A1c (07/23/2024 4:28 AM EDT) Hemoglobin A1c 5.7(H) <5.7 % 07/23/2024 8:45 AM EDT [facility] Blood Venous blood specimen / Unknown Venipuncture / Unknown 07/23/2024 4:28 AM EDT 07/23/2024 4:31 AM EDT Narrative [facility] - 07/23/2024 8:45 AM EDT HA1C Interpretive Data: Diagnosis of Diabetes: Diabetic > or = 6.5% Pre-diabetic 5.7 to 6.4% Non-diabetic < or = 5.6% Glycemic Targets for Type I and Type II Diabetics: Non- Adults <7.0% Adults <6.0% Children and Adolescents <7.5% Source: [place] [employer]. Standards of medical care in diabetes,2017. Diabetes Care.2017:40 (suppl 1):S1-S135. HbA1c assay performed by an ion-exchange chromatography method that is certified traceable to the DCCT. Timoteo Zuluaga MD LAB BLOOD ORDERABLES Final Re sult Performing Organization Address City/[facility] Co de Phone Number [facility] [address] [place] [address] * Hepatitis C Antibody - ED (07/23/2024 4:22 AM EDT) Hepatitis C Antibody Negative Negative 07/23/2024 5:56 AM EDT [facility] Blood Venous blood specimen / Unknown Venipuncture / Unknown 07/23/2024 4:22 AM EDT 07/23/2024 4:32 AM EDT Timoteo Zuluaga MD LAB BLOOD ORDERABLES Final Re sult Performing Organization Address [facility] Co de Phone Number [facility] [address] [place] [address] from Last 3 Months or Most Recently Relevant to Health Maintenance Insurance [employer] [place] [address] Advance Directives Documents on File Type Date Recorded Patient Inside Solar Sales Consultant Expl anation Advance Directives and Christinain g Will 07/28/2024 12:52 PM * DNR/DNI (Latest Code Status on File) Date Activated Date Inactivated Comments 07/23/2024 8:59 AM 07/27/2024 2:32 PM Question Answer Comments DNR determined on/before admission date? Yes Care Teams Live Ammunition Inspector Relationship Specialty Start Date End Date Haroldo Key MD [address] [place] [address] [facility] - General 09/12/20
[2024-10-24 08:44] LABS: Chloride 100 mmol/L (98-107); Potassium 4.6 mmoL/L (3.5-5.1); Sodium 136 mmol/L (136-145)
[2024-10-24 08:47] LABS: Anion Gap 14.6 mEq/L (5-15); Blood Urea Nitrogen 20 mg/dl (7-17); Calcium 9.4 mg/dl (8.4-10.2); Carbon Dioxide 26 mmol/L (22.0-30.0); Estimated Glomerular Filt Rate 29 ml/min (>60); GFR (African American) 35 ML/MIN (>60); Glucose 89 mg/dl (74-100)
[2024-10-24 09:02] LABS: Free T4 (Free Thyroxine) 1.35 ng/dl (0.78-2.19)
[2024-10-24 09:15] LABS: Thyroid Stimulating Hormone 0.87 uIU/mL (0.465-4.68)
== END 2024-10-24 23:59 | disposition home or self-care (01) ==
PROVIDERS: PCP Family Medicine; Visit Provider Nurse Practitioner Family
DX: E11.9 Type 2 diabetes mellitus without complications (principal); R79.89 Other specified abnormal findings of blood chemistry
CPT/HCPCS: 36415; 80048; 83036; 84439; 84443

== ENCOUNTER 2024-11-22 15:47 | Outpatient (CLI) | payer MEDICARE, OTHER, SELFPAY ==
--- OUTSIDE RECORDS SUMMARY | 2024-11-22 15:50 | XMS_ITS | Encounter Summary ---
Author Organization [employer] ([place], [place], [place], [place]) Address [address] [place] [address] Care Team Providers Care Hoop Driving Machine Operator Name Role Phone Unavailable Primary Care Provider Unavailabl e Encounter Details Date Type Department Care Team (Late st Contact Info) Description 07/11/2018 Transcribed Document [facility] Radiology [address] [place] [address] ProviderLayla MD Social History Tobacco Use Types Packs/Day Years Used Date Smoking Tobacco: Never Assessed Comments Unknown Sex and Gender Information Value Date Recorded Sex Assigned at Female 11/06/2021 1:31 PM CDT Legal Sex Female 8:13 PM CDT Gender Identity Female 11/06/2021 1:31 PM CDT Sexual Orientation Not on file documented as of this encounter Miscellaneous Notes * Cerner Conversion Note - Layla Rojo MD - 07/11/2018 8:00 PM EDT Pain Assessment Entered On: 07/11/2018 23:54 EDT Performed On: 07/11/2018 21:44 EDT by Trudi Mao RN Intervention Information: acetaminophen Performed by Trudi Mao RN on 07/11/2018 20:44:00 EDT acetaminophen,1000mg Oral Pain Assessment Pain Assessment : Follow-up assessment Pain Scale Used : FACES Pain Intervention, Drug : Medicated Pain Improved by Intervention : Yes Trudi Mao RN - 07/11/2018 23:53 EDT Pain Scale Intensity : 1 Trudi Mao RN - 07/11/2018 23:53 EDT Image 4 - Images currently included in the form version of this document have not been included in the text rendition version of the form. documented in this encounter Plan of Treatment Not on file documented as of this encounter Visit Diagnoses Not on filedocumented in this encounter
--- OUTSIDE RECORDS SUMMARY | 2024-11-22 15:50 | XMS_ITS | Encounter Summary ---
Author Organization [employer] ([place], [place], [place], [place]) Address [address] [place] [address] Care Team Providers Care Dental Surgery Doctor Name Role Phone Unavailable Primary Care Provider Unavailabl e Encounter Details Date Type Department Care Team (Late st Contact Info) Description 07/11/2018 Transcribed Document [facility] Radiology [address] [place] [address] Provider, Layla Acosta MD Social History Tobacco Use Types Packs/Day Years Used Date Smoking Tobacco: Never Assessed Comments Unknown Sex and Gender Information Value Date Recorded Sex Assigned at Female 11/06/2021 1:31 PM CDT Legal Sex Female 8:13 PM CDT Gender Identity Female 11/06/2021 1:31 PM CDT Sexual Orientation Not on file documented as of this encounter Miscellaneous Notes * Cerner Conversion Note - Layla Acosta ProviderMD - 07/11/2018 12:08 PM EDT Pediatric Growth Entered On: 07/11/2018 11:08 EDT Performed On: 07/11/2018 11:08 EDT by Goldie Dexter Patient In Processing Instructor Height and Weight, Clinical Dosing Height Source : Stated Height Entry Format : [place] Height, Feet : 5 ft(Converted to: 152 cm, 60 Inch) Height, Inches : 0 Inch(Converted to: 0 ft 0 Inch, 0.00 cm) Clinical Height : 152.4 cm Weight Source : Standing scale Weight Entry Format : [place] Clinical Dosing Weight : 73.09 kg Weight, Pounds : 160.8 lb Body Surface Area (BSA) : 1.7 m2 Body Mass Index : 31.5 kg/m2 (HI) [place] Body Weight : 45 kg Goldie Dexter Patient In Processing Instructor - 07/11/2018 11:08 EDT documented in this encounter Plan of Treatment Not on file documented as of this encounter Visit Diagnoses Not on filedocumented in this encounter
--- OUTSIDE RECORDS SUMMARY | 2024-11-22 15:50 | XMS_ITS | Clinical Summary ---
Author Organization [facility] Address [address] [place] [address] Care Team Providers Care Product Marketing Engineer Name Role Phone Haroldo Key MD Primary Care Provider [phone] Allergies Active Allergy Reactions Criticality Noted Date [...] Noted Date Diagnosed Date Acute encephalopathy 07/23/2024 Immunizations Immunization Administration Dates Next Due Tdap [...] week 07/25/2024 How often do you attend chur or yazdanism services? Never 07/25/2024 Do you belong to any clubs o r organizations such as oriental orthodox groups, unions, fraternal or athletic groups, or [...] more drinks on one occasion? Never 07/25/2024 [facility] - Occupational [...] any time in the past 12 m [facility], were you homeless or living in a alf (including now)? No 07/25/2024 Utilities Answer Date Recorded In the past 12 months has e [employer], gas, oil, or water [employer] threatened to shut off services in your [...] Care Team (Late st Contact Info) Description 02/27/2025 1:30 PM EDT Office Visit [place] [facility] [address] [place] [address] Lucila Johnson, VISUAL C DEVELOPER [address] [place] [address] Health Maintenance Due Date Last Done Comments [facility]-Bone Density Scan 1945 [facility]-Depression Screening 1945 [facility]-Medicare Annual Wellness (AWV) 1945 [facility]-/Child/Adol SDOH Screenings 1945 Diabetes: Dental Exam 1956 [facility]-Pneumococcal Vaccine: 50 + Years (1 of 2 - PCV) 1965 [facility]-Zoster Vaccines (1 of 2) 1996 [facility]-RSV Vaccine: 60+ Years o r (1 - 1-dose 75+ series) 2021 [id number] Vaccine (1 - 20 24-25 season) 2024 [facility]-Influenza Vaccine (#1) 2024 [facility]-Diabetes: Hemoglobin A1C 01/20/2025 07/23/2024 [facility]- [...] Procedure Name Priority Date/Time Associated Diagnosis Comments HEMOGLOBIN A1C STAT 07/23/2024 4:28 AM EDT HEPATITIS C ANTIBODY - ED W/REFLEX TO HCV QUANT PCR STAT 07/23/2024 4:22 AM EDT from Last 3 Months or Most Recently Relevant to Health Maintenance Results * (ABNORMAL) Hemoglobin A1c (07/23/2024 4:28 AM EDT) Hemoglobin A1c 5.7(H) <5.7 % 07/23/2024 8:45 AM EDT [facility] Blood Venous blood specimen / Unknown Venipuncture / Unknown 07/23/2024 4:28 AM EDT 07/23/2024 4:31 AM EDT Narrative [facility] - 07/23/2024 8:45 AM EDT HA1C Interpretive Data: Diagnosis of Diabetes: Diabetic > or = 6.5% Pre-diabetic 5.7 to 6.4% Non-diabetic < or = 5.6% Glycemic Targets for Type I and Type II Diabetics: Non- Adults <7.0% Adults <6.0% Children and Adolescents <7.5% Source: [place] [employer] Association. Standards of medical care in diabetes,2017. Diabetes Care.2017:40 (suppl 1):S1-S135. HbA1c assay performed by an ion-exchange chromatography method that is certified traceable to the DCCT. us Timoteo Zuluaga MD LAB BLOOD ORDERABLES Final Re sult [facility] [address] [place] [address] * Hepatitis C Antibody - ED (07/23/2024 4:22 AM EDT) [facility] Hepatitis C Antibody Negative Negative 07/23/2024 5:56 AM EDT [facility] Blood Venous blood specimen / Unknown Venipuncture / Unknown 07/23/2024 4:22 AM EDT 07/23/2024 4:32 AM EDT us Timoteo Zuluaga MD LAB BLOOD ORDERABLES Final Re sult Performing Organization Address City/[facility] de Phone Number [facility] [address] [place] [address] from Last 3 Months or Most Recently Relevant to Health Maintenance Insurance [facility] [place]ICAID-[place] MEDICARE Advance Directives Documents on File Type Date Recorded Patient Deicer Tester Expl anation Advance Directives and Livin g Will 07/28/2024 12:52 PM * DNR/DNI (Latest Code Status on File) Date Activated Date Inactivated Comments 07/23/2024 8:59 AM 07/27/2024 2:32 PM Question Answer Comments DNR determined on/before admission date? Yes Care Teams Product Marketing Engineer Relationship Specialty Start Date End Date Haroldo Key MD [address] [facility] [place] [address] PCP - General 09/12/20
--- OUTSIDE RECORDS SUMMARY | 2024-11-22 15:50 | XMS_ITS | Encounter Summary ---
Author Organization [employer] ([place], [place], [place], [place]) Address [address] [place] [address] Care Team Providers Care Preschool Assistant Principal Name Role Phone Unavailable Primary Care Provider Unavailabl e Encounter Details Date Type Department Care Team (Late st Contact Info) Description 07/11/2018 Transcribed Document [facility] Radiology [address] [place] [address] ProviderLayla MD Social History Tobacco [...] Miscellaneous Notes * Cerner Conversion Note - [facility] Karla Rojo MD - 07/11/2018 3:59 PM EDT Event Note Entered On: 07/11/2018 15:00 EDT Performed On: 07/11/2018 14:59 EDT by RUBY ARIZA RN Event Note Event Date/Time : 07/11/2018 13:40 EDT Description of Event : PT TOLERATED TEST DOSE OF CEFAZOLIN WITHOUT REACTION. RUBY AIRZA RN - 07/11/2018 14:59 EDT documented in this encounter Plan of Treatment Not on file documented as of this encounter Visit Diagnoses Not on filedocumented in this encounter
--- OUTSIDE RECORDS SUMMARY | 2024-11-22 15:50 | XMS_ITS ---
Author Organization Unknown Allergies, Adverse Reactions and Alerts Date IsAllergic OnsetDate Allergen Reaction Type Severity Eligio rgyCode Legacyallergictoid ReactionCode ReactionCodeSystemID Custom 10/05 00:00 :00 1 Tetanus 04/23 00:00 :00 1 Tetanus
--- OUTSIDE RECORDS SUMMARY | 2024-11-22 15:50 | XMS_ITS | Encounter Summary ---
Author Organization [employer] ([place], [place], [place], [place]) Address [address] [place] [address] Care Team Providers Care Reprographics Associate Name Role Phone Unavailable Primary Care Provider Unavailabl e Encounter Details Date Type Department Care Team (Late st Contact Info) Description 06/27/2018 Transcribed Document [facility] [address] [place] [address] ProviderLayla MD Social History Tobacco [...] Miscellaneous Notes * Cerner Conversion Note - [facility] Karla Rojo MD - 06/27/2018 8:41 PM EST Orthopedic Nurse Navigator Entered On: 07/10/2018 6:52 EDT Performed On: 06/27/2018 19:41 EST by Carlyn Temple voice data communications engineer Nurse Navigator Assessment Attended [employer] : Yes Joint AcademyType : Online [employer] Date : 06/27/2018 EST Carlyn Temple, RN - 07/10/2018 6:52 EDT documented in this encounter Plan of Treatment Not on file documented as of this encounter Visit Diagnoses Not on filedocumented in this encounter
--- OUTSIDE RECORDS SUMMARY | 2024-11-22 15:50 | XMS_ITS | Encounter Summary ---
Author Organization [employer] ([place], [place], [place], [place]) Address [address] [place] [address] Care Team Providers Care Director Of Research Name Role Phone Unavailable Primary Care Provider Unavailabl e Encounter Details Date Type Department Care Team (Late st Contact Info) Description 07/11/2018 Transcribed Document [facility] Radiology [address] [place] [address] Provider, Layla Acosta MD Social [...] Miscellaneous Notes * Cerner Conversion Note - [facility] Karla ProviderMD - 07/11/2018 4:23 PM EDT Peripheral Nerve Block Entered On: 07/11/2018 15:24 EDT Performed On: 07/11/2018 15:23 EDT by Hemalatha Solomon Nurse - rajiv Peripheral Nerve Block Site Marked and Visible : Yes Peripheral Nerve Block Start Date/Time : 07/11/2018 13:40 EDT Verbally Confirm Pt, Site, and Procedure : Yes Site Preparation : Chlorhexidine (Hibiclens) Peripheral Nerve Block : Other: adductor canal Laterality : Right Peripheral Nerve Block Performed by : REFUGIO AYALA DO-THANIA Medication Delivery Method : Single Shot Peripheral Nerve Block Assisted by : Hemalatha Solomon Nurse - other Ultra sound used during insertion : Yes Nerve Block Activity, Patient Tolerance : Good Peripheral Nerve Block Comment : PRE OP NERVE BLOCK PER SURGEON REQUEST Peripheral Nerve Block End Date/Time : 07/11/2018 13:55 EDT Hemalatha Solomon, Nurse - other - 07/11/2018 15:23 EDT documented in this encounter Plan of Treatment Not on file documented as of this encounter Visit Diagnoses Not on filedocumented in this encounter
--- OUTSIDE RECORDS SUMMARY | 2024-11-22 15:50 | XMS_ITS | Encounter Summary ---
Author Organization [employer] ([place], [place], [place], [place]) Address [address] [place] [address] Care Team Providers Care Filler And Trimmer Name Role Phone Unavailable Primary Care Provider Unavailabl e Encounter Details Date Type Department Care Team (Late st Contact Info) Description 07/13/2018 Transcribed Document [facility] Radiology [address] [place] [address] Provider, Layla Acosta MD Social [...] Conversion Note - Layla Rojo MD - 07/13/2018 12:48 PM EDT Patient Education Materials Follows: What to expect after the Procedure: After the procedure, it is common to have: ?? Pain and swelling. ?? A small amount of blood or clear fluid coming from your incision for up to 7 days. ?? It is normal to have a moderate amount of bleeding from the site of the drain that was pulled on the morning after surgery. You can hold pressure on the area for 3-5 minutes and cover with a bandage as needed. Diet: ?? Resume usual diet ?? No alcoholic beverages while taking pain medication ?? Drink 8-10 glasses of water a day to prevent constipation from pain medication ?? Increase fiber to help prevent constipation. Straining can cause increased pressure and pain in your incision area ?? Increase protein to promote healing Driving: ?? Do not drive until your health care provider approves. Ask your health care provider when it is safe to drive if you have an immobilizer on your knee. ?? Do not drive or operate heavy machinery while taking prescription pain medicine. ?? Do not drive for 24 hours if you received a sedative. Activity: ?? Do not lift anything that is heavier than 10 lb (4.5 kg) until your health care provider approves. ?? No strenuous activity ?? Avoid high-impact activities, including running, jumping rope, and jumping jacks. ?? Avoid sitting for a long time without moving. Get up and move around at least every few hours. ?? Keep legs elevated while seated and place surgery leg on 2-3 pillows, this will decrease swelling ?? Continue doing blue foam and canseco basin ???tub time?? 3 times a day for 30 minutes at a time. More often is better. ?? Continue using walker until cleared by physical therapy Bathing: ?? Do not take baths, swim, or use a hot tub for one month after surgery. ?? May shower on the third day after surgery by covering incision with Glad Brand Press and Seal saran wrap. After showering, dry off completely BEFORE removing saran wrap. ?? Use Press and Seal saran wrap to shower for one month after surgery ?? You must be seated to shower until you are no longer using the walker Other: ?? Remove CASH wrap on the second day after surgery. Cover incision with 4x4 gauze squares and retainer netting, then put on other compression stocking. Change 4x4 gauze squares and retainer netting daily for 5-7 days until drainage stops ?? Resume home Plavix and Aspirin ?? Do not take Mobic ?? Wear compression stockings on both legs for 6 weeks. Only remove to shower and inspect skin, then put back on ?? Use ice therapy for 20-30 minutes at a time and leave off for 20-30 minutes at a time. Always keep a towel or cloth between the ice pack and your skin ?? Continue to use Incentive Spirometer 10 times an hour while awake for one month to help prevent pneumonia Contact a health care provider if: ?? You have more redness, swelling, or pain around your incision. ?? You have more fluid or blood coming from your incision. ?? Your incision or drain site feels warm to the touch. ?? You have pus or a bad smell coming from your incision. ?? You have a fever. ?? Your incision breaks open after your health care provider removes your sutures, skin glue, or adhesive tape. ?? Your prosthesis feels loose. ?? You have knee pain that does not go away. DVT: Blood Clot Blood clots are a common risk after an orthopedic surgery Symptoms: ?? Swelling of your leg or arm, especially if one side is much worse. ?? Warmth and redness of your leg or arm, especially if one side is much worse. ?? Pain in your arm or leg. If the clot is in your leg, symptoms may be more noticeable or worse when you stand or walk. ?? A feeling of pins and needles, if the clot is in the arm. The symptoms of a DVT that has traveled to the lungs (pulmonary embolism, PE) usually start suddenly and include: ?? Shortness of breath while active or at rest. ?? Coughing or coughing up blood or blood-tinged mucus. ?? Chest pain that is often worse with deep breaths. ?? Rapid or irregular heartbeat. ?? Feeling light-headed or dizzy. ?? Fainting. ?? Feeling anxious. ?? Sweating. There may also be pain and swelling in a leg if that is where the blood clot started. How is this prevented? ?? Exercise regularly. For at least 30 minutes every day, engage in: ? Activity that involves moving your arms and legs. ? Activity that encourages good blood flow through your body by increasing your heart rate. ?? Exercise your arms and legs every hour during long-distance travel (over 4 hours). ?? Drink plenty of water and avoid drinking alcohol while traveling. ?? Avoid sitting or lying in bed for long periods of time without moving your legs. ?? Maintain a weight that is appropriate for your height. Ask your health care provider what weight is healthy for you. ?? If you are a woman who is over 35 years of age, avoid unnecessary use of medicines that contain estrogen. These include control pills. ?? Do not smoke, especially if you take estrogen medicines. If you need help quitting, ask your health care provider. ?? Wear compression stockings (if told by your health care provider) to help prevent blood clots from forming. High Fiber/High Protein Diet High fiber foods: To prevent constipation ?? Grains Whole-grain breads. Multigrain cereal. Oats and oatmeal. Brown rice. Barley. Bulgur wheat. Millet. Bran muffins. Popcorn. [place] wafer crackers. ?? Vegetables Sweet potatoes. Spinach. Kale. Artichokes. Cabbage. Broccoli. Green peas. Carrots. Squash. ?? Fruits Berries. Pears. Apples. Oranges. Avocados. Prunes and raisins. Dried figs. ?? Meats and Other Protein Sources [place], kidney, hoff, and soy beans. Split peas. Lentils. Nuts and seeds. ?? Dairy Fiber-fortified yogurt. ?? Beverages Fiber-fortified soy milk. Fiber-fortified orange juice. ?? Other Fiber bars. High-protein foods: To promote healing High-protein foods contain 4 grams (4 g) or more of protein per serving. They include: ?? Beef, ground sirloin (cooked) ??? 3 oz have 24 g of protein. ?? Cheese (hard) ??? 1 oz has 7 g of protein. ?? Chicken breast, boneless and skinless (cooked) ??? 3 oz have 13.4 g of protein. ?? Cottage cheese ??? 1/2 cup has 13.4 g of protein. ?? Egg ??? 1 egg has 6 g of protein. ?? Fish, filet (cooked) ??? 1 oz has 6???7 g of protein. ?? Garbanzo beans (canned or cooked) ??? 1/2 cup has 6???7 g of protein. ?? Kidney beans (canned or cooked) ??? 1/2 cup has 6???7 g of protein. ?? Pandya (cooked) ??? 3 oz has 24 g of protein. ?? Milk ??? 1 cup (8 oz) has 8 g of protein. ?? Nuts (peanuts, pistachios, almonds) ??? 1 oz has 6 g of protein. ?? Peanut butter ??? 1 oz has 7???8 g of protein. ?? Pork tenderloin (cooked) ??? 3 oz has 18.4 g of protein. ?? Pumpkin seeds ??? 1 oz has 8.5 g of protein. ?? Soybeans (roasted) ??? 1 oz has 8 g of protein. ?? Soybeans (cooked) ??? 1/2 cup has 11 g of protein. ?? Soy milk ??? 1 cup (8 oz) has 5???10 g of protein. ?? Soy or vegetable alphonso ??? 1 alphonso has 11 g of protein. ?? [place] seeds ??? 1 oz has 5.5 g of protein. ?? Tofu (firm) ??? 1/2 cup has 20 g of protein. ?? Tuna (canned in water) ??? 3 oz has 20 g of protein. ?? Yogurt ??? 6 oz has 8 g of protein. Fall Prevention ?? Use night lights. ?? Install grab bars by the toilet and in the tub and shower. Do not use towel bars as grab bars. ?? Use non-skid mats or decals on the floor of the tub or shower. ?? If you need to sit down while you are in the shower, use a plastic, non-slip stool. ?? Keep the floor dry. Immediately clean up any water that spills on the floor. ?? Remove soap buildup in the tub or shower on a regular basis. ?? Remove throw rugs and other tripping hazards from the floor. ?? Place frequently used items in [id number] places ?? Keep electrical cables out of the way. ?? Do not leave any items on the stairs. ?? Make sure that there are handrails on both sides of the stairs. Fix handrails that are broken or loose. Make sure that handrails are as long as the stairways. ?? Check any carpeting to make sure that it is firmly attached to the stairs. Fix any carpet that is loose or worn. ?? Avoid having throw rugs at the top or bottom of stairways, or secure the rugs with carpet tape to prevent them from moving. ?? Wear closed-toe shoes that fit well and support your feet. Wear shoes that have rubber soles or low heels. ?? Use mobility aids as needed, such as canes, walkers, scooters, and crutches. ?? Turn on lights if it is dark. Replace any light bulbs that burn out. ?? Set up furniture so that there are clear paths. Keep the furniture in the same spot. ?? Be aware of any and all pets. ?? Review your medicines with your healthcare provider. Some medicines can cause dizziness or changes in blood pressure, which increase your risk of falling. Hand Washing You should wash your hands whenever you think they are dirty. You should also wash your hands: ?? After: ? Working or playing outside. ? Touching an animal or its toys or leash. ? Handling livestock. ? Using the bathroom. ? Using household chronic condition nurse or toxic chemicals. ? Touching or taking out the garbage. ? Touching anything dirty around your home. ? Handling soiled clothes or rags. ? Taking care of a sick child. This includes touching used tissues, toys, and clothes. ? Sneezing, coughing, or blowing your nose. ? Using public transportation. ? Shaking hands. ? Using a phone, including your mobile phone. ? Touching money. ?? Before and after: ? Preparing food. ? Feeding a baby or young child. ? Eating. ? Visiting or taking care of someone who is sick. ? Changing a diaper. ? Changing a bandage (dressing) or taking care of an injury or wound. ? Giving or taking medicine. If soap and clean water are not available, use an alcohol-based wipe, spray, or hand gel. Use a hand-sanitizing agent that contains at least 60% alcohol. If you are preparing food, hand sanitizers are not recommended as a substitute for hand washing. Walker Use To Walk With a Front-Wheeled Walker: 1. Slide your front-wheeled walker one step-length in front of you. Your toes should be farther forward than the back legs of your walker. 2. Hold on to the walker for support, and step your weaker (surgery) leg into the middle of the walker. 3. Step your stronger leg forward to land next to your weaker leg. 4. Repeat the process for each step. ?? Always keep both feet within the width of the walker's legs or wheels. ?? When using your walker, you should not feel like you need to lean forward or to the side to keep your hands on the handgrips. ?? Make sure you are following any weight-bearing instructions that your health care provider has given you. ?? Be careful not to let the walker get too far ahead of you as you walk. ?? If your walker does not glide well over carpet, consider cutting an X into two tennis balls and placing the balls over the back legs of your walker. To Use a Walker to Step Up: 1. Put all four legs of the walker on the curb or step. 2. Get your feet as close to the curb or step as you can. 3. Test the steadiness of the walker by pressing down on the handgrips. 4. If the walker is steady, press down on it with your hands as you step up with your stronger leg. 5. Step up with your weaker leg. To Use a Walker to Step Down: 1. Put all four legs of the walker on the surface that is lower than the curb or step. 2. Get your feet as close to the curb or step as you can. 3. Test the steadiness of the walker by pressing down on the handgrips. 4. If the walker is steady, press down on it with your hands as you step down with your weaker leg. 5. Step down with your stronger leg. Knee Immobilizer Brace: ?? Adjust the brace as often as needed while wearing it. It should be firm but not tight. Signs that the brace is too tight include: ? Puffiness (swelling). ? Numbness. ? Color change in your foot or ankle. ? Increased pain. documented in this encounter Plan of Treatment Not on file documented as of this encounter Visit Diagnoses Not on filedocumented in this encounter
--- OUTSIDE RECORDS SUMMARY | 2024-11-22 15:50 | XMS_ITS | Encounter Summary ---
Author Organization [employer] ([place], [place], [place], [place]) Address [address] [place] [address] Care Team Providers Care Press Assistant And Feeder Name Role Phone Unavailable Primary Care Provider Unavailabl e Encounter Details Date Type Department Care Team (Late st Contact Info) Description 07/13/2018 Transcribed Document [facility] 1 [place] [address] Provider, Layla Acosta MD Social [...] Conversion Note - Layla Acosta ProviderMD - 07/13/2018 11:08 AM EDT Treatment Intervention, PT Entered On: 07/13/2018 12:48 EDT Performed On: 07/13/2018 10:08 EDT by Nany Walker, [facility] Lead General Information, PT Visit Type, PT : Treatment Note Patient Orders : Order Date Order Ordering 07/11/2018 18:24 PT Treatment Instructions Ordered By: FREDERIC ADAMS MD-ORT 07/11/2018 18:24 PT Evaluation and Treatment Ordered By: FREDERIC ADAMS MD-ORT 07/11/2018 18:24 PT Treatment Instructions Ordered By: FREDERIC ADAMS MD-ORT 07/11/2018 18:24 PT Treatment Instructions Ordered By: FREDERIC ADAMS MD-ORT 07/11/2018 18:24 PT Treatment Instructions Ordered By: FREDERIC ADAMS MD-ORT 07/11/2018 18:24 PT Treatment Instructions Ordered By: FREDERIC ADAMS MD-ORT 07/11/2018 18:24 PT Treatment Instructions Ordered By: FREDERIC ADAMS MD-ORT 07/12/2018 11:55 PT Additional Treatment Ordered By: NENITA PEREZ, PT Active Diagnoses : 07/13/2018 00:00 Weakness Therapy Diagnosis, PT : Aftercare following R TKA. Admission Date : 07/12/2018 12:22 Personal Devices : Personal Devices Dentures, upper, Dentures, lower Assistive Devices : Assistive Devices No Devices Recorded Nany Walker Physical Therapy Asst Lead - 07/13/2018 12:22 EDT General Status Patient Received Status : Up in chair, Chair alarm activated, Other: Daughter in room, all needs within reach, scuds, ice. Treatment Start Time : 07/13/2018 9:00 EDT Nany Walker Physical Therapy Asst Lead - 07/13/2018 12:22 EDT Patient Left Status : Long sitting in bed, Bed alarm activated, RN/PCT informed, Family/Visitors at bedside, Communication board completed, All needs met and within reach, Other: ICE, SCUDS. Nany [facility] Shift [facility] Lead - 07/13/2018 13:09 EDT RN/PCT Informed Comment : RN elba'd PT. Treatment End Time : 07/13/2018 10:08 EDT Treatment Time : 68 Minute(s) Nany Walker Physical Therapy Asst Lead - 07/13/2018 12:22 EDT Edu Topics Physical Therapy Education Grid Balance Training : Verbalizes understanding, Returns demonstration Bed Mobility Training : Verbalizes understanding, Returns demonstration Gait Training : Verbalizes understanding, Returns demonstration, Needs further teaching Home Program/Exercises : Verbalizes understanding, Returns demonstration, Needs further teaching Home Safety : Verbalizes understanding Pain Management : Verbalizes understanding Positioning : Verbalizes understanding Safety : Verbalizes understanding Therapeutic Exercises : Verbalizes understanding, Returns demonstration, Needs further teaching Transfer Training : Verbalizes understanding Use of Assistive Device : Verbalizes understanding Nany Walker Physical Therapy Asst Lead - 07/13/2018 12:22 EDT Plan of Care, PT PT Tx Plan/Goals Established w Patient : Yes [place], Nany, [facility] Shift Lead Lead - 07/13/2018 12:22 EDT Substance Abuse Services Director Goals Other PT LTG Grid Goal #1 Goal #2 Other : Patient will participate in ther ex training for improved strength with gait and transfers. Patient will complete 2 steps with left rail and min assist for safe access to home at discharge. Date to Meet : 07/15/2018 EDT 07/15/2018 EDT Goal Status : Goal met Goal met Nany [facility] Shift Lead Lead - 07/13/2018 12:22 EDT Nnay Walker [facility] Lead - 07/13/2018 12:22 EDT Treatment Note Subjective Comment : Pt agreeable to therapy. Nany Walker [facility] Shift Lead Lead - 07/13/2018 13:09 EDT Patient's Response to Treatment : Good. Nany Walker [facility] Shift Lead Lead - 07/13/2018 12:22 EDT Additional Objective Information : SBA with transfers using FWW. VCs with proper technique. SBA with BTB. Pt ambulated ~100ft with FWW and SBA. She demonstrated slow pace, step to gait pattern, foot flat, impaired right knee flexion during pre swing phase, no LOB - cues for reciprocal gait, heel toe walking, upright posture and increased R knee flexion. Therapist educated patient with safety awareness and HEP. Therapist educated pt with stair climbing, and she performed 4x2 steps with L rail and CGA/SBA. TKA: HEP performed at therapy mat table AROM x25 reps: Seated heel slides on skateboard Long ARC Quads Short Arc Quads in supine with roll in place Straight leg raises Ankle pumps, Quad sets and gluteal sets with heels propped on foam roll Supine heel slides Prone hangs with 5# x10min, AAROM: ext 0-115 flexion. Pt okay'd therapist for overpressure to obtain ROM. Verbal and tactile cues with all exercises. Reviewed [place] rules and pt was given olm[place] rules sheet. Total charges: 45min therex, 13min gait, 10min theract Nany [facility] Shift Lead Lead - 07/13/2018 13:09 EDT Assessment : Pt met goal #1, #2. Plan for Treatment : Home today with family assistance and HHPT. Nany [facility] Shift Lead Lead - 07/13/2018 12:22 EDT Pain Assessment Pain Scaled Used : 0-10 Pain scale Pain Score Pre-Intervention : 4 Pain Score During-Intervention : 8 Pain Score Post-Intervention. : 6 Pain Comment : 10/09 pain, nurse aware. Nany [facility] Shift Lead Lead - 07/13/2018 12:22 EDT Image 1 - Images currently included in the form version of this document have not been included in the text rendition version of the form. [place] PT Charges PT Therap. Exercise 15 min : 3 PT Ther Activities Ea 15 Min : 1 Gait Training Each 15 Min : 1 Nany [facility] Shift Lead Lead - 07/13/2018 12:22 EDT documented in this encounter Plan of Treatment Not on file documented as of this encounter Visit Diagnoses Not on filedocumented in this encounter
--- OUTSIDE RECORDS SUMMARY | 2024-11-22 15:50 | XMS_ITS | Encounter Summary ---
Author Organization [employer] ([place], [place], [place], [place]) Address [address] [place] [address] Care Team Providers Care Greens Or Grounds Superintendent Name Role Phone Unavailable Primary Care Provider Unavailabl e Encounter Details Date Type Department Care Team (Late st Contact Info) Description 07/11/2018 Transcribed Document [facility] Radiology [address] [place] [address] Provider, Layla Acosta MD Social [...] Note - Layla Acosta ProviderMD - 07/11/2018 7:23 PM EDT Evaluation, Physical Therapy Entered On: 07/12/2018 11:55 EDT Performed On: 07/12/2018 11:46 EDT by NENITA PEREZ, GRAYSON General Information, PT Visit Type, PT : Initial evaluation Patient Orders : Order Date Order Ordering [...] PT Treatment Instructions Ordered By: FREDERIC ADAMS MD-ORMeghan Active Diagnoses : No Qualifying Diagnoses Therapy Diagnosis, PT : aftercare following R TKA Admission Date : 07/11/2018 04:54 Co-treated by, PT : Occupational Therapist Personal Devices : Personal Devices Dentures, upper, Dentures, lower Assistive Devices : Assistive Devices No Devices Recorded NENITA PEREZ PT - 07/12/2018 11:46 EDT General Status Patient Received Status : Supine in bed, Bed alarm activated, Other: Ice and SCDs applied. Treatment Start Time : 07/12/2018 8:25 EDT Patient Left Status : Up in chair, Chair alarm activated, RN/PCT informed, Family/Visitors at bedside, Communication board completed, All needs met and within reach, Other: Ice and SCDs applied. RN/PCT Informed Comment : RN and patient consenting to treatment this date. Treatment End Time : 07/12/2018 11:40 EDT Treatment Time : 195 Minute(s) Actual Treatment Time : 68 Minute(s) NENITA PEREZ PT - 07/12/2018 11:46 EDT History and Environment Patient Lives With : Spouse Persons Assisting Patient at Home : Spouse Professional Skilled Services : None Prior LOF Assist with ADL Comment : Patient was independent without AD prior to surgery, still used RW at times when pain in R knee was too much. History and Environment Comment, PT : Patient lives with in single story home with 2 steps to enter and has left rail. Owns RW. NENITA PEREZ, PT - 07/12/2018 11:46 EDT Upper Extremity Upper Extremity Dominance : Right Right UE Active ROM : WFL Right UE Strength : WFL Left UE Active ROM : WFL Left UE Strength : WFL NENITA PEREZ PT - 07/12/2018 11:46 EDT Lower Extremity RLE Active ROM : Impaired Right LE Strength : Impaired NENITA PEREZ PT - 07/12/2018 11:46 EDT RLE ROM Grid Knee Flexion (0-140) Active Assist : 0-110 Comment (Comment: AAROM in supine with PT overpressure [NENITA PEREZ, PT - 07/12/2018 11:46 EDT] ) NENITA PEREZ, PT - 07/12/2018 11:46 EDT LLE Active ROM : WFL Left LE Strength : WFL NENITA PEREZ, PT - 07/12/2018 11:46 EDT Functional Mobility Mobility Grid Bed Roll Left : Rehab Complete independence Bed Roll Right : Rehab Complete independence Bed Scooting : Rehab Complete independence Supine to Sit : Rehab Modified independence Sit to Stand : Supervision/set-up (Comment: with RW [ALEMSUMMER MERCADOFER, PT - 07/12/2018 11:46 EDT] ) Bed to Chair : Supervision/set-up (Comment: with RW [NENITA PEREZ, PT - 07/12/2018 11:46 EDT] ) Chair to Bed : Supervision/set-up (Comment: with RW [NENITA PEREZ, PT - 07/12/2018 11:46 EDT] ) Stand to Sit : Supervision/set-up (Comment: with RW [ALEMUS NENITA, PT - 07/12/2018 11:46 EDT] ) Sit to Supine : Rehab Modified independence NENITA PEREZ, PT - 07/12/2018 11:46 EDT [facility] Basic Mobility Turning Over in Bed : None Sit Down On/Stand Up From Chair w/ Arms : A little Move Back Lying to Sitting Side of Bed : None Moving To/From a Bed to Chair : A little Need to Walk in Hospital Room : A little Climbing 3-5 Steps with a Railing : A little [facility] Basic Mobility Raw Score : 20 [facility] Basic Mobility Standardized Score : 47.67 [facility] Basic Mobility CMS 0-100% Score : 35.83 % NENITA PEREZ, PT - 07/12/2018 11:46 EDT Image 1 - Images currently included in the form version of this document have not been included in the text rendition version of the form. Gait Training/Assessment, PT Weight Bearing Order Status : WBAT Weight Bearing Status Maintained : Yes Gait Assistance Level : Supervision Walking Distance : 100 feet Ambulatory Devices : Walker, front wheel Gait Deviations : Yes Gait Training Comment : Patient with slow pace, occassional variation from linear progress, downward gaze and wide base of support. Stair(s) Ascend/Descend Training : No NENITA PEREZ, PT - 07/12/2018 11:46 EDT Neuromuscular Reeducation, PT Balance Comment : Normal sitting balance, Fair standing balance with RW. NENITA PEREZ, PT - 07/12/2018 11:46 EDT Neurological/Sensory Overall Sensory Response : Intact Response to Pain : Intact NENITA PEREZ, PT - 07/12/2018 11:46 EDT Cognition Assessment, PT Orientation : Oriented x 4 NENITA PEREZ PT - 07/12/2018 11:46 EDT Edu Topics Physical Therapy Education Grid Balance Training : Verbalizes understanding Bed Mobility Training : Verbalizes understanding Gait Training : Verbalizes understanding Home Program/Exercises : Verbalizes understanding Home Safety : Verbalizes understanding Role of Physical Therapy : Verbalizes understanding Safety : Verbalizes understanding Transfer Training : Verbalizes understanding Use of Assistive Device : Verbalizes understanding NENITA PEREZ, PT - 07/12/2018 11:46 EDT Indication Assesessment, PT Physical Therapy Indicated : Yes Interdisciplinary Consultation(s) Needed : No PT Problem List : Impaired, activities daily living, Impaired, bed mobility, Impaired, endurance tolerance, Impaired, gait, Impaired, joint mobility, Impaired, stair mobility, Impaired, standing balance, Impaired, strength, Impaired, transfers, Pain limiting function Potential Barriers To Therapy : None evident Rehabilitation Potential : Good NENITA PEREZ PT - 07/12/2018 11:46 EDT Plan of Care, PT PT Tx Plan/Goals Established w Patient : Yes PT Frequency Rehab : Daily, twice (bid) PT Duration Rehab : Three days PT Treatments Planned : Balance training, Bed mobility training, Caregiver training, Gait training, Safety education, Stair training, Therapeutic exercises, Transfer training NENITA PEREZ PT - 07/12/2018 11:46 EDT Machine Feeder Goals Other PT LTG Grid Goal #1 Goal #2 Other : Patient will participate in ther ex training for improved strength with gait and transfers. Patient will complete 2 steps with left rail and min assist for safe access to home at discharge. Date to Meet : 07/15/2018 EDT 07/15/2018 EDT Goal Status : Initial goal Initial goal NENITA PEREZ PT - 07/12/2018 11:46 EDT NENITA PEREZ PT - 07/12/2018 11:46 EDT Treatment Note Subjective Comment : Patient was pleasant and cooperative with treatment this date, reports 4/10 pain at rest, had pain meds at 7 30 AM. Patient's Response to Treatment : No adverse reactions to treatment this date. Additional Objective Information : See Evaluation for functional mobility. Patient completed ther ex as follows: 2x10 ankle pumps, quad sets, glut sets, short arc quads, long arc quads, seated knee flexion, heel slides and SLR. Modified prone hangs x 10 minutes with 5 lb weight. R KNEE AAROM 0-110 degrees with PT overpressure. Assessment : Patient should progress well with program. Plan for Treatment : Progress per POC as tolerated, will need stair training before DC. NENITA PEREZ PT - 07/12/2018 11:46 EDT Anticipated Discharge Needs, OT/PT Anticipated Discharge to OT : Home, with home health Anticipated Home Equipment : None Anticipated D/C Provider Notified : Nursing Recommend Continued Therapy at Discharge : Yes NENITA PEREZ PT - 07/12/2018 11:[address] [facility] PT Charges PT Therap. Exercise 15 min : 2 PT Ther Activities Ea 15 Min : 1 Gait Training Each 15 Min : 1 PT Eval Low Complexity : 1 NENITA PEREZ PT - 07/12/2018 11:46 EDT documented in this encounter Plan of Treatment Not on file documented as of this encounter Visit Diagnoses Not on filedocumented in this encounter
--- OUTSIDE RECORDS SUMMARY | 2024-11-22 15:50 | XMS_ITS | Encounter Summary ---
Author Organization [employer] ([place], [place], [place], [place]) Address [address] [place] [address] Care Team Providers Care General Surgery Physician Assistant Name Role Phone Unavailable Primary Care Provider Unavailabl e Encounter Details Date Type Department Care Team (Late st Contact Info) Description 07/30/2019 Transcribed Document [facility] 1 [place] [address] ProviderLayla MD Social History Tobacco [...] Notes * [employer] Conversion Note - [facility] Karla Rojo MD - 07/30/2019 11:42 AM EDT Orthopedic Nurse Navigator Entered On: 07/30/2019 10:42 EDT Performed On: 07/30/2019 10:42 EDT by Marion Farias Nurse energy conservation technician Nurse Navigator Assessment Joint Navigator Assessment Note : 1 year post op surveys. aMrion Farias Nurse RN - 07/30/2019 10:42 EDT documented in this encounter Plan of Treatment Not on file documented as of this encounter Visit Diagnoses Not on filedocumented in this encounter
--- OUTSIDE RECORDS SUMMARY | 2024-11-22 15:50 | XMS_ITS | Encounter Summary ---
Author Organization [employer] ([place], [place], [place], [place]) Address [address] [place] [address] Care Team Providers Care Identification And Records Commander Name Role Phone Unavailable Primary Care Provider Unavailabl e Encounter Details Date Type Department Care Team (Late st Contact Info) Description 07/30/2019 Transcribed Document [facility] Radiology 1 [place] [address] Provider, Layla Acosta MD Social [...] Conversion Note - Layla Rojo MD - 07/30/2019 11:42 AM EDT Total Joints Assessment Entered On: 07/30/2019 10:43 EDT Performed On: 07/30/2019 10:42 EDT by Marion Farias Nurse RN KOOS, JR. Knee Survey 1. How severe is your knee stiffness after first wakening in the morning? : None 2. Twisting/pivoting on your knee : None 3. Straightening knee fully : None 4. Going up or down stairs : None 5. Standing upright : None 6. Rising from sitting : None 7. Bending to floor/roll picker an object : None WINSOME PATEL Raw Score (ref) : 0 Marion Farias Nurse RN - 07/30/2019 10:42 EDT PROMIS Global Health Scale In general, would you say your health is: : Good In general, would you say your quality of life is: : Good In general, how would you rate your physical health? : Good In general, how would you rate your mental health, including your mood and your ability to think? : Good In general, how would you rate your satisfaction with your social activities and relationships? : Good In general, please rate how well you carry out your usual social activities and roles. (This includes activities at home, at work and in your community, and responsibilities as a parent, child, spouse, employee, friend, etc.) : Very good To what extent are you able to carry out your everyday physical activities such as walking, climbing stairs, carrying groceries, or moving a chair? : Moderately How often have you been bothered by emotional problems such as feeling anxious, depressed or irritable? : Rarely How would you rate your fatigue on average? : Mild How would you rate your pain on average? : 0 No pain Global Physical Health Score (ref) : 15 Global Mental Health Score (ref) : 13 Marion Farias Nurse RN - 07/30/2019 10:42 EDT documented in this encounter Plan of Treatment Not on file documented as of this encounter Visit Diagnoses Not on filedocumented in this encounter
--- OUTSIDE RECORDS SUMMARY | 2024-11-22 15:50 | XMS_ITS | Encounter Summary ---
Author Organization [employer] ([place], [place], [place], [place]) Address [address] [place] [address] Care Team Providers Care Chief Controller Name Role Phone Unavailable Primary Care Provider Unavailabl e Encounter Details Date Type Department Care Team (Late st Contact Info) Description 07/11/2018 Transcribed Document [facility] Radiology 1 [place] [address] Provider, Layla Acosta MD Social [...] Miscellaneous Notes * Cerner Conversion Note - [facility] Karla ProviderMD - 07/11/2018 3:47 PM EDT [facility] OR PACU Summary Primary Physician: FREDERIC ADAMS MD-ORT Finalized Date/Time: 07/11/18 18:08:25 Pt. Name: MACI FLOROrly Royal/Sex: 1945 Female Med Rec #: [id number] Physician: FREDERIC ADAMS MD-ORT Financial #: [id number] Pt. Type: O Room/Bed: 508/1 Admit/Disch: 07/11/18 04:54:00 - Institution: [facility] OR PACU Case Times Entry 1 In PACU I 07/11/18 16:03:00 Ready for PACU 07/11/18 17:03:00 Discharge Discharge from PACU 07/11/18 17:43:00 I Last Modified By: Mayra Cunningham Rn Patient Care Bedside 07/11/18 18:08:09 [facility] OR PACU Case Times Audit 07/11/18 18:08:09 Institutional Aide: BARRERA Modifier: BARRERA <+> 1 Ready for PACU Discharge <+> 1 Discharge from PACU I [facility] OR PACU Acuity Entry 1 Start Time 07/11/18 17:04:00 Stop Time 07/11/18 17:43:00 Acuity Level [facility] PACU Acuity I Last Modified By: Mayra Cunningham Rn Patient Care Bedside 07/11/18 18:08:17 Finalized By: Mayra Cunningham Rn Patient Care Bedside Document Signatures Signed By: Mayra Cunningham Rn Patient Care Bedside 07/11/18 18:08 documented in this encounter Plan of Treatment Not on file documented as of this encounter Visit Diagnoses Not on filedocumented in this encounter
--- OUTSIDE RECORDS SUMMARY | 2024-11-22 15:50 | XMS_ITS | Encounter Summary ---
Author Organization [employer] ([place], [place], [place], [place]) Address [address] [place] [address] Care Team Providers Care Manager Music Name Role Phone Unavailable Primary Care Provider Unavailabl e Encounter Details Date Type Department Care Team (Late st Contact Info) Description 07/11/2018 Transcribed Document [facility] Radiology 1 [place] [address] Provider, Layla Acosta MD Social [...] Miscellaneous Notes * Cerner Conversion Note - [facility] Karla ProviderMD - 07/11/2018 3:47 PM EDT [facility] OR PreOp Summary Primary Physician: FREDERIC ADAMS MD-ORT Finalized Date/Time: 07/11/18 15:05:11 Pt. Name: MACI FLOROrly Royal/Sex: 1945 Female Med Rec #: [id number] Physician: FREDERIC ADAMS MD-ORT Financial #: [id number] Pt. Type: O Room/Bed: [facility]/ Admit/Disch: 07/11/18 04:54:00 - [place] [facility] PreOp Case Times Entry 1 In Preop 07/11/18 10:40:00 Ready for Holding n/a Room Patient Ready for 07/11/18 13:24:00 Surgery Patient Out of Preop 07/11/18 14:09:00 Patient Out of n/a Holding Room Last Modified By: IFRAH CLAIRE 07/11/18 15:05:10 [facility] PreOp Case Times Audit 07/11/18 15:05:10 Pressroom Foreman: TORichClare Modifier: [email or web address] <+> 1 Patient Out of Preop 07/11/18 13:45:10 Pressroom Foreman: [id number] Modifier: [email or web address] <+> 1 Patient Ready for Surgery Finalized By: IFRAH CLAIRE Document Signatures Signed By: IFRAH CLAIRE 07/11/18 15:05 Electronically signed by Jorge Luis [facility] Conversion Purchasing Administrator [employer] at 09/22/2022 11:00 AM CDT documented in this encounter Plan of Treatment Not on file documented as of this encounter Visit Diagnoses Not on filedocumented in this encounter
--- OUTSIDE RECORDS SUMMARY | 2024-11-22 15:50 | XMS_ITS | Clinical Summary ---
Author Organization [employer] ([place], [place], [place], [place]) Address [address] [place] [address] Care Team Providers Care Electronic Calibration Technician Name Role Phone Unavailable Primary Care Provider Unavailabl e Social History Tobacco Use Types Packs/Day Years Used Date Smoking Tobacco: Never Assessed Comments Unknown Sex and Gender Information Value Date Recorded Sex Assigned at Female 11/06/2021 1:31 PM CDT Legal Sex Female 8:13 PM CDT Gender Identity Female 11/06/2021 1:31 PM CDT Sexual Orientation Not on file Plan of Treatment Not on file
--- OUTSIDE RECORDS SUMMARY | 2024-11-22 15:50 | XMS_ITS | Encounter Summary ---
Author Organization [employer] ([place], [place], [place], [place]) Address [address] [place] [address] Care Team Providers Care Customer Support Manager Name Role Phone Unavailable Primary Care Provider Unavailabl e Encounter Details Date Type Department Care Team (Late st Contact Info) Description 07/11/2018 Transcribed Document [facility] Radiology 1 [place] [address] ProviderLayla MD Social History Tobacco [...] Notes * [employer]ner Conversion Note - [facility] Karla ProviderMD - 07/11/2018 11:11 PM EDT Education-Diabetes Topics Entered On: 07/12/2018 0:04 EDT Performed On: 07/11/2018 22:11 EDT by Trudi Mao RN Teaching/Learning Assessment Barriers To Learning : None evident Individuals Taught : Patient Readiness to Learn : Cooperative Baseline Knowledge of Topic : Good Readiness to Learn : Demonstration, Explanation Learning Style Preferences Patient : Printed materials, Verbal explanation Learning Style Preferences Family : Printed materials, Verbal explanation Trudi Mao RN - 07/11/2018 23:57 EDT Education, Diabetes Diabetes Education Grid Acute Complications : Verbalizes understanding Blood Glucose Monitoring : Verbalizes understanding Community Resources : Verbalizes understanding Trudi Mao RN - 07/11/2018 23:57 EDT documented in this encounter Plan of Treatment Not on file documented as of this encounter Visit Diagnoses Not on filedocumented in this encounter
--- OUTSIDE RECORDS SUMMARY | 2024-11-22 15:50 | XMS_ITS | Encounter Summary ---
Author Organization [employer] ([place], [place], [place], [place]) Address [address] [place] [address] Care Team Providers Care Outside Sales Manager Name Role Phone Unavailable Primary Care Provider Unavailabl e Encounter Details Date Type Department Care Team (Late st Contact Info) Description 07/11/2018 Transcribed Document [facility] Radiology [address] [place] [address] Provider, Layla Acosta MD Social [...] Note - Layla Rojo MD - 07/11/2018 11:06 PM EDT DATE OF CONSULTATION: 07/11/2018 PRIMARY CARE PHYSICIAN: Dr. Haroldo Key. REFERRING PHYSICIAN: Dr. Carroll Martin. ATTENDING PHYSICIAN: Clara Gudino M.D. REASON FOR CONSULT: Medical management. HISTORY OF PRESENT ILLNESS: This is a 72-year-old female admitted to the hospital today for right knee replacement. Patient has a surgery done today, been doing okay. She has history of tobacco use, chronic kidney disease, and diabetes. The patient had mild sore throat, started to eat. Her creatinine level 2.3 today, had baseline as per the daughter between 1.8 and 2.2. Patient lying in bed, not in distress. Pain is controlled. SYSTEMIC REVIEW: GENERAL: No fever or chills. HEAD: No headache or dizziness. EYES: No change of vision. EARS: No earache. NOSE: No epistaxis. THROAT: Positive for sore throat. RESPIRATORY: No shortness of breath. No cough. CARDIAC: No chest pain. GI: No nausea or vomiting. URINARY: No hematuria. MUSCULOSKELETAL: Knee pain. NEUROLOGICAL: No focal numbness or weakness. SKIN: No new rashes. ENDOCRINE: No heat or cold intolerance. PAST MEDICAL HISTORY: 1. Chronic kidney disease. 2. Diabetes mellitus. 3. Anxiety. 4. Arthritis. 5. Coronary artery disease. 6. Depression. 7. Fibromyalgia. 8. Tobacco use. 9. Hypertension. 10. Hyperlipidemia. 11. History of TIA. PAST SURGICAL HISTORY: 1. Endarterectomy. 2. Eye surgery. 3. Right hip surgery. 4. Hysterectomy. 5. Tonsillectomy. 6. History of knee replacement. 7. EGD. 8. D and C. SOCIAL HISTORY: Patient is a smoker. Denies any alcohol or drug abuse. FAMILY HISTORY: Positive for diabetes and hypertension. ALLERGIES: 1. LATEX. 2. PENICILLIN. 3. SULFA DRUGS. 4. TETANUS. HOME MEDICATIONS: 1. Norvasc 10 mg a day. 2. Aspirin 81 mg a day. 3. Lipitor 40 mg a day. 4. Vitamin D3 a day. 5. Plavix 75 mg a day. 6. Vitamin B12 daily. 7. Gabapentin 300 mg a day. 8. Glipizide 5 mg twice a day. 9. Lisinopril 5 mg daily. 10. Multivitamin a day. 11. Zantac 150 mg a day. 12. Sertraline 50 mg a day. 13. Tramadol 50 mg 3 times daily as needed. PHYSICAL EXAMINATION: VITAL SIGNS: Blood pressure 122/46, temperature 98.0, heart rate 82, respiratory rate 32. HEAD: Atraumatic normocephalic. Pupils round and reactive. EYES: No conjunctival injection or discharge. EARS: No discharge. NOSE: No bleeding or discharge. MOUTH: Dry. NECK: Supple. No JVD or lymphadenopathy. Full range of motion. CHEST: Poor inspiratory effort. Diminished air entry. No crackles, wheezes, or rhonchi. HEART: S1 and S2 heard. Regular rate and rhythm. ABDOMEN: Soft, obese. Audible bowel sounds. No tenderness. No guarding. No rebound tenderness. EXTREMITIES: No edema, erythema, or tenderness with right knee covered. NEUROLOGICAL: No apparent focal motor or sensory deficit. Patient alert, awake, oriented x3. Intact cranial nerves. PSYCHIATRIC: Mild anxiety. SKIN: No apparent rashes or induration. ENDOCRINE: No thyromegaly or tenderness. GENERAL: Patient lying in bed, anxious. Family is at bedside. LABORATORIES AND STUDIES: Sodium 136, potassium 5.3, chloride 107, CO2 is 21, glucose 249, BUN 28, creatinine 2.3, calcium 8.4. Hemoglobin 10.1, hematocrit 30.6. ASSESSMENT AND PLAN: 1. Status post right knee replacement. Patient had the surgery done. Pain is controlled. Not in distress. Physical therapy will be started. Further recommendation as per Dr. Martin. 2. Chronic kidney disease. Stable creatinine. Her creatinine level today 2.3. We will recheck creatinine level in a.m. Patient to follow up with her primary care physician as outpatient. 3. Anxiety. We will start Ativan as needed. 4. Tobacco abuse. Discussed with patient risk and complication of ongoing tobacco use. We will offer nicotine patch. 5. Diabetes mellitus. We will start sliding scale. Monitor blood sugar. 6. Obesity. Recommend diet and exercise. 7. Hypertension. Resume home medication. Start hydralazine as needed. We will hold CASH inhibitor for tonight. 8. Hyperlipidemia, on statin to be continued. 9. Gastrointestinal prophylaxis, proton pump inhibitor. 10. Deep venous thrombosis prophylaxis, compression boots. Plan discussed in detail with the patient, with the daughter at bedside. The chart was reviewed. TIME SPENT: 55 minutes. Clara Gudino M.D. Dict: 07/11/2018 22:06:29 Trans: 07/12/2018 01:21:55 CC1: Clara Gudino M.D. Electronically signed by Jorge Luis [facility] Conversion Auto Leasing Manager [employer] at 09/22/2022 11:00 AM CDT documented in this encounter Plan of Treatment Not on file documented as of this encounter Visit Diagnoses Not on filedocumented in this encounter
--- OUTSIDE RECORDS SUMMARY | 2024-11-22 15:50 | XMS_ITS | Clinical Summary ---
Author Organization [facility] Address [address] [place] [address] Care Team Providers Care Bank Boss Name Role Phone Haroldo Key MD Primary Care Provider + Allergies Active Allergy Reactions Criticality Noted Date Comments Adhesive Tape Rash Low 02/03/2017 Rash after prolonged skin contact Latex 11/25/2016 Rash Penicillins 03/08/2017 Mild Reaction Sulfa Antibiotics Rash Low 11/25/2016 Tetanus Toxoids Other (See Comments) 11/25/2016 Local swelling and fever Medications sertraline (ZOLOFT) 100 MG tablet Take 1 tablet by mouth Daily. Active lisinopril (PRINIVIL,ZESTRI L) 10 MG tablet Take 1 tablet by mouth Daily. Active traMADol (ULTRAM) 50 MG tablet Take 1 tablet by mouth 3 (Three) Times a Day. Active glipiZIDE (GLUCOTROL) 5 MG tablet Take 1 tablet by mouth Daily. Active atorvastatin (LIPITOR) 40 MG tablet Take 1 tablet by mouth Daily. Active traZODone (DESYREL) 100 MG tablet Take 1 tablet by mouth At Night As Needed. 12/03/2022 Active aspirin 81 MG EC tablet Take 1 tablet by mouth Daily. Active multivitamin with minerals (MULTIVITAMIN ADULT PO) Take 1 tablet by mouth Daily. Active Active Problems Problem Noted Date Diagnosed Date Carotid occlusion, right 12/17/2022 Overview (12/17/2022): Added automatically from request for surgery [id number] Carotid stenosis, asymptomatic, right 12/17/2022 Overview (12/17/2022): Added automatically from request for surgery [id number] Hyperkalemia 02/05/2017 Type 2 diabetes mellitus wit h complication, without long-term current use of insulin 02/04/2017 Essential hypertension 02/04/2017 Tobacco abuse 02/04/2017 Left-sided carotid artery disease 01/11/2017 Overview (01/11/2017): Added automatically from request for surgery [id number] Peripheral vascular disease 01/02/2017 Resolved Problems Problem Noted Date Diagnosed Date Resolved Date Carotid stenosis 02/04/2017 02/04/2017 Family History Medical History Relation Name Comments Hypertension Father Lung disease Father Diabetes Mother Hypertension Mother Other Mother Carotid artery disease Stroke Mother Relation Name Status Comments Father Mother Social History Tobacco Use Types Packs/Day Years Used Date Smoking Tobacco: Every Day Cigarettes 1.5 50 Started: 02/22/1967; Last attempted to quit: 02/22/2017 Smokeless Tobacco: Never Tobacco Cessation:Ready to Q uit: Not Asked Alcohol Use Standard Drinks/Week Comments No 0 (1 standard drink = 0.6 oz pur e alcohol) AUDIT-C Answer Date Recorded Q1: How often do you have a drink containing alcohol? Never 12/29/2022 Q2: How many drinks containi ng alcohol do you have on a typical day when you are drinking? Patient does not drink Q3: How often do you have si x or more drinks on one occasion? Never 12/29/2022 Abuse Screen Answer Date Recorded Unsafe at Home or Work/School Not on file Feels Threatened by Someone? Not on file 12/2023 Does Anyone Keep You from Co ntacting Others or Doint Things Outside the Home? Not on file 01/08/2024 Physical Sign of Abuse Present Not on file 0 01/08/2024 Housing Stability Answer Date Recorded Current Living Arrangements Not on file 12/2023 Potentially Unsafe Housing Conditions Not on maria victoria e 01/08/2024 Family and Community Support Answer Jeff e Recorded Help with Day-to-Day Activities Not on file 02/09/2023 Lonely or Isolated Not on file 02/09/2023 Employment Answer Date Recorded Do you want help finding or keeping work or a madisyn b? Not on file 02/09/2023 Disabilities Answer Date Recorded Concentrating, Remembering, or Making Decisions Difficulty Not on file 01/08/2024 Doing Errands Independently Difficulty Not on fi le 01/08/2024 Education Answer Date Recorded Help with school or training? Not on file Preferred Language Not on file 02/09/2023 Comments No Sex and Gender Information Value Date Recorded Sex Assigned at Not on file Legal Sex Female 9:54 AM EDT Gender Identity Not on file Sexual Orientation Not on file Occupation Industry Job Start Date Job End Date Patrick Not on file Not on file Not on file Last Filed Vital Signs Vital Sign Reading Time Taken Comments Blood Pressure 155/75 12/29/2022 11:49 AM EDT post ambulation Pulse 72 12/29/2022 11:49 AM EDT Temperature 36.4 C (97.5 F) 12/29/2022 6:43 AM EDT Respiratory Rate 18 12/29/2022 8:50 AM EDT Oxygen Saturation 94% 12/29/2022 11: 49 AM EDT Inhaled Oxygen Concentration - - Weight 63.6 kg (140 lb 3.2 oz) 12/29/2022 6:31 AM EDT Height 152.4 cm (5') 12/29/2022 6:31 AM EDT Body Mass Index 27.38 12/29/2022 6:31 AM EDT Plan of Treatment Health Maintenance Due Date Last Done Comments DXA SCAN 1945 DIABETIC EYE EXAM 1955 DIABETIC FOOT EXAM 1955 URINE MICROALBUMIN-CREATININE RATIO (uACR) 1955 Pneumococcal Vaccine 50+ (1 of 2 - PCV) 1965 COLOGUARD 08/30/1991 COLON CANCER SCREENING 5 YEAR SIGMOIDOSCOPY 08/30/1991 COLONOSCOPY 08/30/1991 COLORECTAL CANCER SCREENING 08/30/1991 CT COLONOGRAPHY 08/30/1991 FECAL OCCULT BLOOD TEST 08/30/1991 FIT Testing (1 year) 08/30/1991 ZOSTER VACCINE (1 of 2) 1996 ANNUAL WELLNESS VISIT 11/26/2016 HEPATITIS C SCREENING 11/26/2016 HEMOGLOBIN A1C 08/04/2017 02/03/2017 RSV Vaccine - Adults (1 - 1-dose 75+ series) COVID-19 Vaccine ( - 2023- season) 2024 INFLUENZA VACCINE 01/30/2025 Medical Devices Implanted Type Area Director Of Cardiac Cath Lab Device Identifier Shelf Expiration Date Model / Serial / Lot Intraoccular Lenses Implant Right Hip Orif Hardware Implant [facility] [place] 1x6cm - [id number] Implanted:Qty: 1 on 02/04/2017 by Maicol Burger MD at [facility] Implant Left: Carotid [employer] [id number] / / [id number] Procedures Procedure Name Priority Date/Time Associated Diagnosis Comments HEMOGLOBIN A1C Routine 02/03/2017 1:39 PM EDT Stenosis of left carotid artery from Last 3 Months or Most Recently Relevant to Health Maintenance Results * (ABNORMAL) Hemoglobin A1c (02/03/2017 1:39 PM EDT) Hemoglobin A1C 6.60(H) 4.80 - 5.60 % 02/03/2017 2:28 PM EDT [facility] Blood Venipuncture / Unknown 02/03/2017 1:39 PM EDT 02/03/2017 1:51 PM EDT Narrative [facility] - 02/03/2017 2:28 PM EDT The [place] [employer] recommends maintenance of Hemoglobin A1C at 7.0% or lower. Goals for Hemoglobin A1C reduction may need to be modified if hypoglycemia is a problem. us Haroldo [facility] BLOOD ORDERABLES Final R esult [facility]
[id number] [id number], from Last 3 Months or Most Recently Relevant to Health Maintenance Insurance MEDICARE A & B [facility] SUP Advance Directives Documents on File Type Date Recorded Patient General Handling Supervisor Expl anation LIVING WILL - SCAN 10/20/2021 5:59 AM FRANCHESCA NG WILL DIRECTIVE 02/04/17 LIVING WILL - SCAN 10/19/2021 8:51 AM FRANCHESCA NG WILL DIRECTIVE 02/04/2017 * Full Code (Latest Code Status on File) Date Activated Date Inactivated Comments 02/04/2017 9:45 AM 02/05/2017 7:28 PM Care Teams Bank Boss Relationship Specialty Start Date End Date Haroldo Key MD PCP - General Family Medicine 11/11/16
--- OUTSIDE RECORDS SUMMARY | 2024-11-22 15:50 | XMS_ITS | Encounter Summary ---
Author Organization [employer] ([place], [place], [place], [place]) Address [address] [place] [address] Care Team Providers Care Base Loader Name Role Phone Unavailable Primary Care Provider Unavailabl e Encounter Details Date Type Department Care Team (Late st Contact Info) Description 06/30/2018 Transcribed Document [facility] Radiology [address] [place] [address] Provider, Layla Acosta MD Social [...] Miscellaneous Notes * Cerner Conversion Note - meryl Acosta ProviderMD - 06/30/2018 11:02 AM EST PAT Adult Entered On: 06/30/2018 10:07 EST Performed On: 06/30/2018 10:02 EST by KENNY BECERRA RN Vital Measurements Temperature Source : Temporal artery scanning Temperature, Fahrenheit : 97.2 Deg F Clinical Temperature, C : 36.2 Deg C Peripheral Pulse Rate : 69 bpm Respiratory Rate : 20 Breaths/Min Systolic Blood Pressure : 145 mmHg (HI) Diastolic Blood Pressure : 65 mmHg Oxygen Saturation : 98 % Oxygen Therapy Mode : Room air KENNY BECERRA RN - 06/30/2018 10:02 EST Height and Weight, Clinical Dosing Height Source : Stated Height Entry Format : [place] Height, Feet : 5 ft(Converted to: 152 cm, 60 Inch) Height, Inches : 0 Inch(Converted to: 0 ft 0 Inch, 0.00 cm) Clinical Height : 152.4 cm Weight Source : Standing scale Weight Entry Format : [place] Clinical Dosing Weight : 79.55 kg Weight, Pounds : 175 lb Body Surface Area (BSA) : 1.77 m2 Body Mass Index : 34.3 kg/m2 (HI) [place] Body Weight : 45 kg KENNY BECERRA RN - 06/30/2018 10:02 EST Health Histories Smoking Status : 10 or more cigarettes (1/2 pack or more)/day in last 30 days Smokeless Tobacco Status : Never Desires Tobacco Cessation Medication : No Reason for No Tobacco Cessation Medication : Refuses FDA approved medications KENNY BECERRA RN - 06/30/2018 10:02 EST Social History (As Of: 06/30/2018 10:07:24 EST) Tobacco: Smoking Status Former smoker. Use in Last 12 Months: Cigarettes. Packs/Tins Daily: 1. Last Used: quit 09/30/2017. (Last Updated: 10/20/2017 13:21:22 EDT by Sun Coughlin Rn) 10 or more cigarettes (1/2 pack or more)/day in last 30 days Smoking Status. Never Smokeless Tobacco Status. Years of Use: 52. Packs/Tins Daily: 1. (Last Updated: 06/30/2018 10:01:57 EST by KENNY BECERRA RN) Alcohol: Alcohol Use History Yes. Alcohol Use Frequency Rarely. (Last Updated: 05/20/2017 09:57:56 EST by Sun Coughlin Rn) Alcohol Use History Yes. Alcohol Use Frequency Rarely. Alcohol Use Comment 1 ior 2 beers a year. (Last Updated: 06/30/2018 10:01:57 EST by KENNY BECERRA RN) Substance Abuse: Drug Use Hx: No. (Last Updated: 05/20/2017 09:58:00 EST by Sun Coughlin Rn) Drug Use Hx: No. (Last Updated: 06/30/2018 10:01:57 EST by KENNY BECERRA RN) Home/Environment: Lives with Spouse. (Last Updated: 10/20/2017 13:21:36 EDT by Sun Coughlin Rn) Infectious Disease History Infectious Disease History : Chicken pox/Shingles, Hepatitis A, Influenza, Measles, Mumps Isolation Needed : Standard Fever/Chills Last 48 Hours : No Travel To Regions with Travel Advisories : No Travel Outside [place] Within Last 30 Days : No Contact With Traveler to Advisory Region : No Tuberculosis Symptoms : None KENNY BECERRA RN - 06/30/2018 10:02 EST Anesthesia/Transfusion History Family History of Anesthesia Reaction : No prior transfusion(s) Transfusion History : Prior anesthesia without reaction Family History of Anesthesia Reaction : None KENNY BECERRA RN - 06/30/2018 10:02 EST Functional Assessment Functional ADL Evaluation Index EBN Bathing : Independent (2) Dressing : Independent (2) Toileting : Independent (2) Transferring Bed or Chair : Independent (2) Continence : Independent (2) Feeding : Independent (2) KENNY BECERRA RN - 06/30/2018 10:02 EST ADL Index Score : 12 KENNY BECERRA RN - 06/30/2018 10:02 EST Advance Directive Patient has Advance Directive *Q : Yes, Advance Directive with the patient Advance Directive Type : Living will KENNY BECERRA RN - 06/30/2018 10:02 EST Psychosocial History Do You Have a History of the Following? : Anxiety, Depression Currently in Unsafe Situation : No Tried to Harm Yourself in the Past? : No Thoughts of Harming/Killing Yourself : No KENNY BECERRA RN - 06/30/2018 10:02 EST Teaching/Learning Assessment Individuals Taught : Patient KENNY BECERRA RN - 06/30/2018 10:02 EST General Info Want Family/Rep/Phys Notified of Admit : No Emergency Contact #1 : Shaila Javier Emergency Contact #1 Emergency Contact #1 Relationship : daughter Emergency Contact #2 : andrew Emergency Contact #2 Phone Number : - Emergency Contact #2 Relationship : - Primary Language : Telugu Preferred Communication Mode : Verbal Communication Barrier : None KENNY BECERRA RN - 06/30/2018 10:02 EST Waldemar Scale Waldemar Sensory Perception : No impairment Waldemar Moisture : Rarely moist Waldemar Activity : Walks occasionally Waldemar Mobility : Very limited Waldemar Nutrition : Adequate Waldemar Friction and Shear : No apparent problem Waldemar Score : 19 KENNY BECERRA, RN - 06/30/2018 10:02 EST Sleep Apnea Risk Assmt Hx of Obstructive Sleep Apnea Diagnosis : No Snore Loudly : Yes Tired, Fatigued, or Sleepy During Day : No Observed Stopping Breathing During Sleep : No Have/Are Being Treated for Hypertension : Yes STOP Sleep Apnea Risk Level Score : 2 STOP Sleep Apnea Risk Level : High KENNY BECERRA, RN - 06/30/2018 10:02 EST documented in this encounter Plan of Treatment Not on file documented as of this encounter Visit Diagnoses Not on filedocumented in this encounter
--- OUTSIDE RECORDS SUMMARY | 2024-11-22 15:50 | XMS_ITS | Encounter Summary ---
Author Organization [employer] ([place], [place], [place], [place]) Address [address] [place] [address] Care Team Providers Care Conical Mixer Name Role Phone Unavailable Primary Care Provider Unavailabl e Encounter Details Date Type Department Care Team (Late st Contact Info) Description 07/11/2018 Transcribed Document [facility] Radiology [address] [place] [address] Provider, Layla Acosta MD Social [...] Note - Layla Rojo MD - 07/11/2018 7:45 PM EDT Education-(VTE) / (DVT) Entered On: 07/11/2018 20:32 EDT Performed On: 07/11/2018 19:00 EDT by Trudi Mao RN Teaching/Learning Assessment Barriers To Learning : None evident Individuals Taught : Patient Readiness to Learn : Cooperative Baseline Knowledge of Topic : Comprehensive Readiness to Learn : Demonstration, Explanation Learning Style Preferences Patient : Printed materials, Verbal explanation Learning Style Preferences Family : Printed materials, Verbal explanation Trudi Mao RN - 07/11/2018 20:31 EDT Education Topics: VTE/DVT Education Topics: VTE/DVT Activity Limitations/Expectations : Verbalizes understanding Antiembolic hose : Verbalizes understanding VTE/DVT prophylaxis : Verbalizes understanding Foot Pumps : Verbalizes understanding Medications : Verbalizes understanding Sequential Compression Device : Verbalizes understanding Smoking Cessation : Verbalizes understanding Risk for developing a VTE : Verbalizes understanding Signs and symptoms of a VTE : Verbalizes understanding Treatment/prophylaxis for VTE : Verbalizes understanding Encourage early ambulation : Verbalizes understanding VTE/DVT, Other : Verbalizes understanding Trudi Mao RN - 07/11/2018 20:31 EDT Electronically signed by Jorge Luis [facility] Conversion Instructor [employer]ence [employer] Cerner at 09/22/2022 11:00 AM CDT documented in this encounter Plan of Treatment Not on file documented as of this encounter Visit Diagnoses Not on filedocumented in this encounter
--- OUTSIDE RECORDS SUMMARY | 2024-11-22 15:50 | XMS_ITS | Encounter Summary ---
Author Organization [employer] ([place], [place], [place], [place]) Address [address] [place] [address] Care Team Providers Care Tablet Machine Operator Name Role Phone Unavailable Primary Care Provider Unavailabl e Encounter Details Date Type Department Care Team (Late st Contact Info) Description 07/10/2018 Transcribed Document [facility] Radiology [address] [place] [address] Provider, Layla Acosta MD Social [...] Conversion Note - Layla Rojo MD - 07/10/2018 11:45 AM EDT Patient: FLOR LUX Age: 72 Years Sex: Female : 1945 Discharge Plan Discharge: Home Procedure: Right TKA Complications: None DVT Prophylaxis: Resume plavix and ASA WB Status: WBAT Therapy goals: Hospital ROM Continue Lis at home all times when not performing PT/HEP TID Prone Hangs, patient shown how to perform CPM machine 0-110 Goal- Knee flexion 110 degrees ENOC F/U in clinic 2-3 weeks Discharge Instructions: 1)Elevate the knee and the entire lower extremity for as much as possible for 6 weeks and use ice liberally for 30 minutes 3-4 times a day. 2)Patient may shower on the 3rd day after surgery, but must keep the wound or dressing completely dry until discussed on first post op visit. The patient should not take any soaking baths until 1 month after surgery. 3) Patient may bear as much weight as tolerated on the affected extremity. TUBS (passive exertion) exercises for 30 minutes TID are effective initially after surgery, but after the 1st week, the patient should progress to prone hangs to help with knee straightening postoperatively. 4) Patient will be on blood thinner for 4 to 6 weeks after surgery. The blood thinner may vary for each patient. 5) You may remove the CASH day after surgery and leave the incision uncovered if it is completely dry. TU REMOVED IN OFFICE IN 2-3 WEEKS. 6) An CASH wrap can be used to cover the wound to maintain compression and decrease swelling. 7) Call for wound drainage that is present beyond 7 days after surgery. 9) Motion is more important than strength or walking distance during the first 6 weeks after surgery. 10) Gabapentin 300 mg tabs, Oxycodone 5mg, Tramadol 50mg tabs tabs will be used for postoperative pain control and should be weaned as the patient can tolerate. Discharge Medications Home Medications (14) Active amLODIPine 10 mg, Oral, QAM aspirin 81 mg oral delayed release tablet 81 mg = 1 Tab, Oral, Daily atorvastatin 40 mg, Oral, QAM clopidogrel 75 mg, Oral, Daily Colace 100 mg oral capsule 100 mg = 1 Cap, PRN, Oral, Daily gabapentin 300 mg oral capsule 300 mg = 1 Cap, Oral, At Bedtime glipiZIDE 5 mg, Oral, BID lisinopril 5 mg, Oral, QPM multivitamin , Oral, Daily raNITIdine 150 mg, Oral, QPM sertraline 50 mg, Oral, QPM Vitamin B12 5,000 mcg, Oral, Daily Vitamin D3 5,000 Int Units, Oral, Daily Oxycodone 5mg 1-2 tabs every 6 hours PRN pain Tramadol 50mg 1 tab Q 6hrs PRN ECASA 81mg BID x 6 weeks Colace 100mg 1 tab daily Gabapentin 300mg 1 tab QHS NO NSAIDs documented in this encounter Plan of Treatment Not on file documented as of this encounter Visit Diagnoses Not on filedocumented in this encounter
--- OUTSIDE RECORDS SUMMARY | 2024-11-22 15:50 | XMS_ITS | Encounter Summary ---
Author Organization [employer] ([place], [place], [place], [place]) Address [address] [place] [address] Care Team Providers Care Automotive Machinist Apprentice Name Role Phone Unavailable Primary Care Provider Unavailabl e Encounter Details Date Type Department Care Team (Late st Contact Info) Description 07/18/2018 Transcribed Document [facility] [address] [place] [address] Provider, Layla Acosta MD Social [...] Conversion Note - Layla Acosta ProviderMD - 07/18/2018 12:46 PM EDT PLEASE MODIFY BEFORE SIGNING CLINICAL DOCUMENTATION CLARIFICATION FORM: Dear : ___ANN MARIE Date / Time: _[id number] 11:49 PM Please exercise your independent, professional judgment in responding to the clarification form. Clinical indicators are provided on the bottom of this form for your review Please check appropriate box(es): [x ] ____Acute Kidney Failure (Condition) is a complication of current/recent surgery [ ] ____Acute Kidney Failure (Condition) and is not a complication of current/recent surgery [ ] Other diagnosis [ ] Unable to determine In addition, please specify: Present on Admission (POA): [ x ] Yes [ ] No [ ] Unable to determine Physician Signature: Date/Time: For continuity of documentation, please document condition throughout progress notes and discharge summary. Thank You. To be completed by CDI/Coding staff for physician review: Present Clinical Indicators - Signs / Symptoms / Labs Results and Location in Medical Record [ ] CT / x-ray results [ ] Altered vitals [ ] Pain/ drainage from site [ x ] Supporting labs Rising creatinine after surgery - 07/12 progress note [ ] Blood cultures [ ] Dehiscence [ ] Bleeding [ ] Infection Present Risk Factors Results and Location in Medical Record [x ] Recent surgery Knee replacement - operative note [ ] Poor healing factors (advanced age / debility / obesity / chronic conditions) [ ] Recent use of antibiotics [ ] Present Treatments Results and Location in Medical Record [ ] Antibiotics [ x ] IV Fluids Given IV fluids - 07/12 progress note [ ] Surgical procedure/ Evaluation [ ] CDS/Catalogue Clerk Signature: Edgar Horne Phone #: _[phone]__ Date/Time: _07/18/2018 11:53 AM_ This is a permanent part of the Medical Record documented in this encounter Plan of Treatment Not on file documented as of this encounter Visit Diagnoses Not on filedocumented in this encounter
--- OUTSIDE RECORDS SUMMARY | 2024-11-22 15:50 | XMS_ITS | Encounter Summary ---
Author Organization [employer] ([place], [place], [place], [place]) Address [address] [place] [address] Care Team Providers Care Roll Operator Name Role Phone Unavailable Primary Care Provider Unavailabl e Encounter Details Date Type Department Care Team (Late st Contact Info) Description 07/12/[address] [facility] Radiology [address] [place] [address] Provider, Layla Acosta MD Social [...] Conversion Note - Layla Rojo MD - 07/12/2018 4:51 PM EDT DATE OF CONSULTATION: RENAL CONSULT NOTE WITH [facility] CONSULTING PHYSICIAN: Carroll Martin M.D. REASON FOR CONSULTATION: Elevated creatinine. CHIEF COMPLAINT: Knee replacement. 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 Per patient reports, her baseline creatinine around 1.8-2.2. Patient came in for a right knee replacement. Patient's creatinine on admission is 2.3, today postop creatinine is 2.7 with an elevated potassium 5.7. Nephrology consult to evaluate. Patient denies any NSAIDs. I do not see that she has received any here. No recent contrast administration. Patient did have some low sided blood pressures yesterday, however, none of these were severe. I do not know if patient had any intraoperative hypotension. Patient has been getting IV fluids with good urine output. Denies any chest pain, shortness of breath. No nausea, vomiting, diarrhea, or constipation. Knee pain is adequately controlled. Denies any other complaints at this time. PAST MEDICAL HISTORY: Significant for CKD stage 4, baseline creatinine 1.8-2.2, diabetes, anxiety, arthritis, coronary artery disease, depression, fibromyalgia, hypertension, hyperlipidemia, TIAs in the past. PAST SURGICAL HISTORY: History of carotid endarterectomy, eye surgery, hip surgery, hysterectomy, tonsillectomy, history of left knee replacement, history of EGD, . MEDICATION ALLERGIES: 1. LATEX. 2. PENICILLIN. 3. SULFA. 4. TETANUS. CURRENT MEDICATIONS: See list in chart. SOCIAL HISTORY: Significant for tobacco use. No alcohol or drug use. FAMILY HISTORY: No congenital renal disease. REVIEW OF SYSTEMS: As above, otherwise negative per admission H and P. PHYSICAL EXAMINATION: VITAL SIGNS: Blood pressures today in 140s/50s, sats 96% on room air, temperature is 97.8, heart rate 81, respirations 16. GENERAL: Patient is a well-developed, obese white female, in no apparent distress. PSYCHIATRIC: Patient is awake, alert, and oriented x3. Normal mood and affect. EYES: Anicteric. No conjunctivitis. Extraocular muscles are intact. ENT: Oral mucous membrane is moist. Dentition is intact. TMs intact. NECK: Supple. No JVD is discernible. Trachea is midline. LUNGS: Decreased bilateral quiet respirations sitting upright. ABDOMEN: Soft, nontender, nondistended. Bowel sounds present. : No Gan catheter. No palpable bladder. SKIN: No rashes or lesions noted. No palpable nodules. LABORATORY DATA: Sodium 133, potassium 5.7, chloride 104 with bicarb of 21, BUN , creatinine 2.7, calcium 8.2, hemoglobin 9.5. No imaging. ASSESSMENT AND PLAN: 1. Acute renal failure. Creatinine trending up postop to 2.7, patient has good urine output. Patient had been on lisinopril, which was held yesterday. No recent or contrast. No diuretics. Patient is getting intravenous fluids. Blood pressure is borderline low yesterday. For now, we will get urine labs and monitor Gan catheter. 2. Chronic kidney disease stage 4, baseline creatinine per chart. Follows with Nephrology in [place], may be [facility] packing machine can feeder. 3. Hypertension. Blood pressure was low yesterday, hold angiotensin converting enzyme inhibitor and monitor. 4. Hyperkalemia. Low-potassium diet. Kayexalate p.r.n., . 5. Status post right total knee arthroplasty. 6. Patient is high risk and complex patient. Gen Lam M.D. Dict: 07/12/2018 15:51:02 Trans: 07/13/2018 00:22:40 Processed: 07/13/2018 11:15:54 [place] CC1: Gen Lam M.D. documented in this encounter Plan of Treatment Not on file documented as of this encounter Visit Diagnoses Not on filedocumented in this encounter"
--- OUTSIDE RECORDS SUMMARY | 2024-11-22 15:50 | XMS_ITS | Encounter Summary ---
Author Organization [employer] ([place], [place], [place], [place]) Address [address] [place] [address] Care Team Providers Care Mail Machine Operator Name Role Phone Unavailable Primary Care Provider Unavailabl e Encounter Details Date Type Department Care Team (Late st Contact Info) Description 07/13/2018 Transcribed Document [facility] Radiology [address] [place] [address] ProviderLayla MD Social History Tobacco [...] Miscellaneous Notes * Cerner Conversion Note - [facility] Karla ProviderMD - 07/13/2018 6:00 AM EDT Chart Check - Review Order Profile Entered On: 07/13/2018 4:53 EDT Performed On: 07/13/2018 5:00 EDT by Kieran Spivey RN Chart Check Chart Reviewed Date and Time : 07/13/2018 5:00 EDT Powerplans Initiated/Discontinued as Appropriate : Yes All Active Orders Reviewed : Yes Kieran Spivey RN - 07/13/2018 4:53 EDT documented in this encounter Plan of Treatment Not on file documented as of this encounter Visit Diagnoses Not on filedocumented in this encounter
--- OUTSIDE RECORDS SUMMARY | 2024-11-22 15:50 | XMS_ITS | Encounter Summary ---
Author Organization [employer] ([place], [place], [place], [place]) Address [address] [place] [address] Care Team Providers Care Pipe Bowls Paint Trimmer Name Role Phone Unavailable Primary Care Provider Unavailabl e Encounter Details Date Type Department Care Team (Late st Contact Info) Description 07/11/2018 Transcribed Document [facility] Radiology [address] [place] [address] ProviderLayla MD Social History Tobacco Use Types Packs/Day Years Used Date Smoking Tobacco: Never Assessed Comments Unknown Sex and Gender Information Value Date Recorded Sex Assigned at Female 11/06/2021 1:31 PM CDT Legal Sex Female 8:13 PM CDT Gender Identity Female 11/06/2021 1:31 PM CDT Sexual Orientation Not on file documented as of this encounter Miscellaneous Notes * [employer] Conversion Note - [facility] Karla Rojo MD - 07/11/2018 7:23 PM EDT Pain Assessment Entered On: 07/11/2018 23:53 EDT Performed On: 07/11/2018 21:44 EDT by Trudi Mao RN Intervention Information: traMADol Performed by Trudi Mao RN on 07/11/2018 20:44:00 EDT traMADol,50mg Oral Pain Assessment Pain Assessment : Follow-up [...]
--- OUTSIDE RECORDS SUMMARY | 2024-11-22 15:50 | XMS_ITS | Encounter Summary ---
Author Organization [employer] ([place], [place], [place], [place]) Address [address] [place] [address] Care Team Providers Care Forestry Scientist Name Role Phone Unavailable Primary Care Provider Unavailabl e Encounter Details Date Type Department Care Team (Late st Contact Info) Description 07/11/2018 Transcribed Document [facility] Radiology [address] [place] [address] Provider, Layla Acosta MD Social [...] Note - Layla Rojo MD - 07/11/2018 10:44 PM EDT Admission History, Adult Entered On: 07/11/2018 21:47 EDT Performed On: 07/11/2018 21:44 EDT by Aline Fabian Rn Advance Directive Patient has Advance Directive *Q : Yes, Advance Directive with the patient Advance Directive Type : Living will Copy Advance Directive Verified/on Chart : No Advance Directive Comment : Patient states the hospital has it on record Aline Fabian Rn - 07/11/2018 21:44 EDT Anesthesia/Transfusion History Family History of Anesthesia Reaction : No prior transfusion(s) Blood Transfusion Acceptable to Patient : Yes Transfusion History : Prior anesthesia without reaction Family History of Anesthesia Reaction : None Aline Fabian Rn - 07/11/2018 21:44 EDT Anticipated Discharge Needs Discharge To, Anticipated : Home Anticipated Discharge Needs at This Time : None David Fabianeen, Rn - 07/11/2018 21:44 EDT Education Topics, Admission Orientation DCP GENERIC CODE Advance Directives : Verbalizes understanding, Returns demonstration Allergy Band Applied : Verbalizes understanding, Returns demonstration Assessment/Vital Signs : Verbalizes understanding, Returns demonstration Bed Control : Verbalizes understanding, Returns demonstration Call Light : Verbalizes understanding, Returns demonstration Confidentiality : Verbalizes understanding, Returns demonstration Diet/Room Service : Verbalizes understanding, Returns demonstration Fall Prevention : Verbalizes understanding, Returns demonstration Hand Hygiene : Verbalizes understanding, Returns demonstration Healthcare Provider Visit : Verbalizes understanding, Returns demonstration ID Band Applied : Verbalizes understanding, Returns demonstration Isolation Precautions : Verbalizes understanding, Returns demonstration Orientation to Room/Bathroom : Verbalizes understanding, Returns demonstration Patient Bill of Rights : Verbalizes understanding, Returns demonstration Patient Rights/Responsibilities : Verbalizes understanding, Returns demonstration Patient Safety : Verbalizes understanding, Returns demonstration Personal Privacy Code : Verbalizes understanding, Returns demonstration Rapid Response Initiated by Patient/Family : Verbalizes understanding, Returns demonstration Rounding : Verbalizes understanding, Returns demonstration Siderails use/risks : Verbalizes understanding, Returns demonstration Skin Precautions : Verbalizes understanding, Returns demonstration Smoking Policy : Verbalizes understanding, Returns demonstration Telemetry Monitoring : Verbalizes understanding, Returns demonstration Television/Phone : Verbalizes understanding, Returns demonstration Visiting Policy : Verbalizes understanding, Returns demonstration Aline Fabian Rn - 07/11/2018 21:44 EDT Functional Assessment Living Situation : Home Patient Lives With : Spouse Persons Assisting Patient at Home : Spouse Current Daily Living Assistance : None Mobility Assistance Prior to Admission : Partial assistance Current Home Treatments : Blood glucose monitoring Home Equipment : Walker Walker : Walker, four wheel Professional Skilled Services : None Special Services and Community Resources : Aline Aldana Rn - 07/11/2018 21:44 EDT General Info Preferred Name : Flor Arrived From : Home Mode of Arrival on Unit : Wheelchair Legal Guardian : Daughter, Son, Spouse Want Family/Rep/Phys Notified of Admit : No Emergency Contact #1 : Shaila Javier Emergency Contact #1 Emergency Contact #1 Relationship : daughter Emergency Contact #2 : andrew Emergency Contact #2 Phone Number : - Emergency Contact #2 Relationship : - Information Obtained From : Patient Primary Language : Belarusian Preferred Communication Mode : Verbal Communication Barrier : None Currently Lactating : No Status : N/A Aline Fabian Rn - 07/11/2018 21:44 EDT Fall Risk Scales ABCs Fall Injury Risk Identification : Age, Bones, Surgery ABC Fall Injury Risk : Moderate to high injury risk Injury Moderate to High Risk Interventions : Bed alarm on, Chair alarm on, Fall contract/letter per facility policy, Patient room close to nurses station, Personal alarm on, Specialty low bed, Supervise toileting as indicated, Transport methods appropriate to patient, Visual cues in place, Wrist band (fall risk) on per policy, Fall Injury Intervention Refused ONEIL Hx Falls Immediate/Within 3 Months : No Oneil Secondary Diagnosis : Yes ONEIL Use of Ambulatory Aid : Bed rest/Nurse assist ONEIL IV Therapy or IV Access : Yes [place] Gait/Transferring : Weak Oneil Mental Status : Oriented to own ability Oneil Fall Risk Score : 45 ONEIL Fall Scale Risk Level : 25-45 Medium Risk [place] Fall Interventions : Adequate lighting, Bed in low position, Call device within reach, Fall prevention handout/education per facility policy, Frequent orientation to call device, Frequent orientation to surroundings, Hourly comfort/safety rounds, Non-slip footwear, Personal items within reach, Reinforced to call for assistance before getting out of bed, Room free of clutter/spills, Upper side-rails up, Wheels locked, Wires/Cords secured Aline Fabian Rn - 07/11/2018 21:44 EDT Fall Risk Education Grid Alarms : Verbalizes understanding, Returns demonstration Assistive Equipment Use : Verbalizes understanding, Returns demonstration Bed Height/Stabilization : Verbalizes understanding, Returns demonstration Call light use : Verbalizes understanding, Returns demonstration Door Open : Verbalizes understanding, Returns demonstration Environmental Management : Verbalizes understanding, Returns demonstration Eyeglasses Use : Verbalizes understanding, Returns demonstration Fall Community Resources : Verbalizes understanding, Returns demonstration Fall Contract/Letter : Verbalizes understanding, Returns demonstration Fall Prevention in the Home : Verbalizes understanding, Returns demonstration Fall Prevention Protocol : Verbalizes understanding, Returns demonstration Hearing Aid Use : Verbalizes understanding, Returns demonstration Home Risk Assessment : Verbalizes understanding, Returns demonstration Need Constant Observation : Verbalizes understanding, Returns demonstration Night Light Use : Verbalizes understanding, Returns demonstration Nonskid Footwear Use : Verbalizes understanding, Returns demonstration Notification of Staff When Leaving : Verbalizes understanding, Returns demonstration Orthostatic Hypotension Precautions : Verbalizes understanding, Returns demonstration Personal Article Availability : Verbalizes understanding, Returns demonstration Prevention Responsibility Family : Verbalizes understanding, Returns demonstration Prevention Responsibility Patient : Verbalizes understanding, Returns demonstration Risk Alert Methods : Verbalizes understanding, Returns demonstration Risk Factors : Verbalizes understanding, Returns demonstration Safety Aids : Verbalizes understanding, Returns demonstration Siderails use/risks : Verbalizes understanding, Returns demonstration Special Assistive Devices : Verbalizes understanding, Returns demonstration Staff Responsiveness : Verbalizes understanding, Returns demonstration Symptom Identification & Action Plan *Q : Verbalizes understanding, Returns demonstration Symptom Reporting : Verbalizes understanding, Returns demonstration Toileting Schedule : Verbalizes understanding, Returns demonstration Transfer/Mobility Techniques : Verbalizes understanding, Returns demonstration Urinal/Bedpan Availability : Verbalizes understanding, Returns demonstration Wait for Assistance : Verbalizes understanding, Returns demonstration Wheelchair Safety : Verbalizes understanding, Returns demonstration Aline Fabian Rn - 07/11/2018 21:44 EDT Barriers to Learning : None evident Individuals Taught : Patient Readiness to Learn : Cooperative Baseline Knowledge of Topic : Good Teaching Method : Manager Ethics Learning Style Preferences Family : Printed materials, Verbal explanation Learning Style Preferences Patient : Printed materials, Verbal explanation Teaching Evaluation : Verbalizes understanding Fall Risk Scale Calc Temp : 1 Aline Fabian Rn - 07/11/2018 21:44 EDT Health Histories Smoking Status : 10 or more cigarettes (1/2 pack or more)/day in last 30 days Smokeless Tobacco Status : Never Desires Tobacco Cessation Medication : No Reason for No Tobacco Cessation Medication : Refuses FDA approved medications Aline Fabian Rn - 07/11/2018 21:44 EDT Social History (As Of: 07/11/2018 21:47:26 EDT) Tobacco: Smoking Status Former smoker. Use in [...] 10/20/2017 13:21:36 EDT by Sun Coughlin Rn) Height and Weight, Clinical Dosing Height Source : Stated Height Entry Format : Simpson Height, Feet : 5 ft(Converted to: 152 cm, 60 Inch) Height, Inches : 0 Inch(Converted to: 0 ft 0 Inch, 0.00 cm) Clinical Height : 152.4 cm Weight Source : Standing scale Weight Entry Format : Simpson Clinical Dosing Weight : 73.09 kg Weight, Pounds : 160.8 lb Body Surface Area (BSA) : 1.7 m2 Body Mass Index : 31.5 kg/m2 (HI) Newcomb Body Weight : 45 kg Aline Fabian Rn - 07/11/2018 21:44 EDT Infectious Disease History Infectious Disease History : Chicken pox/Shingles, Hepatitis A, Influenza, Measles, Mumps Isolation Needed : Standard Fever/Chills Last 48 Hours : No Travel To Regions with Travel Advisories : No Travel Outside [place] Within Last 30 Days : No Contact With Traveler to Advisory Region : No Exposure to Contagious Illness : No Tuberculosis Symptoms : None Aline Fabian Rn - 07/11/2018 21:44 EDT Tetanus Immunization Status Previous Tetanus Immunizations : No qualifying data available. Tetanus Immunization : Greater than 10 years Tetanus Immunization Comment : Allergic reaction to it years ago. Aline Fabian Rn - 07/11/2018 21:44 EDT Influenza Vaccine Asmt, Adult Previous Vaccines from Immunization Schedule : No qualifying data available. Influenza Immunization, Current Season : Yes Aline Fabian Rn - 07/11/2018 21:44 EDT Pneumococcal Vaccine Previous Vaccines from Immunization Schedule : No qualifying data available. Pneumonia Immunization Received : Yes Aline Fabian Rn - 07/11/2018 21:44 EDT Order Details Order Detail : N/A Aline Fabian Rn - 07/11/2018 21:44 EDT Nutrition History Feeding Ability : Independent Adaptive Feeding Equipment : Diabetic Oral Medication Administration : By mouth Eating Poorly Due to Decreased Appetite : No Unplanned Weight Loss in Past 3-6 Months : No Malnutrition Screening Tool Total(mal) : 0 Malnutrition Screening Tool Risk Level : Patient not at risk Aline Fabian Rn - 07/11/2018 21:44 EDT Psychosocial History Does Someone Depend on You for Care? : No Do You Have a History of the Following? : Anxiety, Depression Currently in Unsafe Situation : No Do You Have a Support System? : Yes Tried to Harm Yourself in the Past? : No Thoughts of Harming/Killing Yourself : No Aline Fabian Rn - 07/11/2018 21:44 EDT Sleep Apnea Risk Assmt Hx of Obstructive Sleep Apnea Diagnosis : No Snore Loudly : Yes Tired, Fatigued, or Sleepy During Day : No Observed Stopping Breathing During Sleep : No Have/Are Being Treated for Hypertension : Yes BMI Greater Than 35 kg/m2 : No Age over 50 Years Old : Yes Neck Circumference Greater Than 40 cm : No Gender Male : No STOP-BANG Sleep Apnea Risk Level Score : 3 Aline Fabian Rn - 07/11/2018 21:44 EDT Spiritual/Cultural Needs Significant Loss/Crisis in Past 3 Years : No Aline Fabian Rn - 07/11/2018 21:44 EDT Valuables and Belongings Valuables and Belongings : Clothing, Personal devices, Personal items Clothing : Common streetwear Clothing Disposition : With family Personal Device Disposition : With patient Personal Devices : Dentures, upper, Dentures, lower Personal Items : Purse Personal Items Disposition : With family Aline Fabian Rn - 07/11/2018 21:44 EDT documented in this encounter Plan of Treatment Not on file documented as of this encounter Visit Diagnoses Not on filedocumented in this encounter
--- OUTSIDE RECORDS SUMMARY | 2024-11-22 15:50 | XMS_ITS | Encounter Summary ---
Author Organization [employer] ([place], [place], [place], [place]) Address [address] [place] [address] Care Team Providers Care Assistant Portfolio Manager Name Role Phone Unavailable Primary Care Provider Unavailabl e Encounter Details Date Type Department Care Team (Late st Contact Info) Description 07/13/2018 Transcribed Document [facility] Radiology [address] [place] [address] Provider, Layla Acosta MD Social [...] Miscellaneous Notes * Cerner Conversion Note - [facility] Karla Rojo MD - 07/13/2018 11:47 AM EDT Nursing Discharge Summary Entered On: 07/13/2018 10:48 EDT Performed On: 07/13/2018 10:47 EDT by Lucille Azevedo RN Discharge Documentation Discharge Date/Time : 07/13/2018 12:13 EDT Marion Farias Rn - 07/13/2018 12:13 EDT Patient Disposition, General : Discharge Discharge To : Home with ambulatory/outpatient follow-up Mode Of Departure, General Discharge : Private vehicle Accompanied By, Discharge : Care provider IV Discontinued : Yes Personal Belongings With Patient : Yes Prescriptions Given to Patient : Yes Discharge Instructions Reviewed With, Opportunity For Questions Given : Patient Number of Prescriptions Given : 3 Teaching Method : Demonstration, Explanation, Printed materials Teaching Evaluation : Verbalizes understanding Lucille Azevedo RN - 07/13/2018 10:47 EDT documented in this encounter Plan of Treatment Not on file documented as of this encounter Visit Diagnoses Not on filedocumented in this encounter
--- OUTSIDE RECORDS SUMMARY | 2024-11-22 15:50 | XMS_ITS | Encounter Summary ---
Author Organization [employer] ([place], [place], [place], [place]) Address [address] [place] [address] Care Team Providers Care Early Education Teacher Name Role Phone Unavailable Primary Care Provider Unavailabl e Encounter Details Date Type Department Care Team (Late st Contact Info) Description 07/13/2018 Transcribed Document [facility] Radiology [address] [place] [address] Provider, Layla Acosta MD Social [...] Note - Layla Rojo MD - 07/13/2018 9:03 AM EDT Patient: JOAN LUX Age: 72 years Sex: Female : 1945 Associated Diagnoses: None Author: DEBORA HUNTER MD-NEP Subjective No new complaints Objective VS/Measurements Vitals Signs (last 24 hrs) Last Charted Minimum Maximum Temp 97.6 (JUL 13 05:41) 97.6 (JUL 13 05:41) 97.5 (JUL 12 18:42) Mon HR 76 (JUL 13 05:41) 76 (JUL 13 05:41) 85 (JUL 12 23:07) Resp Rate 17 (JUL 13 05:41) 16 (JUL 12 18:42) 17 (JUL 13 05:41) SBP H 146 (JUL 13 05:41) 115 (JUL 12 12:21) H 146 (JUL 13 05:41) DBP L 55 (JUL 13 05:41) L 42 (JUL 12 12:21) L 57 (JUL 12 23:07) MAP 79 (JUL 13 05:41) 66 (JUL 12 18:42) 118 (JUL 12 12:21) SpO2 96 (JUL 13 05:41) 96 (JUL 12 12:21) 98 (JUL 12 23:07) Intake & Output Totals Last 24 Hours (7a-7a) Intake (4 Events) Medications (50.01 mL) Oral Intake (1000 mL) Output (3 Events) Urine Voided (Volume) (2325 mL) Input Total: 1050.01 mL Output Total: 2325 mL Balance: -1274.99 mL General: No acute distress. Respiratory: Respirations are non-labored. Cardiovascular: No edema. Gastrointestinal: Non-distended. Genitourinary: no christian. Integumentary: Warm, Dry, No rash. Neurologic: Alert, Oriented. Psychiatric: Cooperative, Appropriate mood & affect. Results Review Labs (Last four charted values) WBC H 12.4 (JUL 13) HB L 9.0 (JUL 13) L 9.5 (JUL 12) L 10.1 (JUL 11) HCT L 27.6 (JUL 13) L 30.0 (JUL 12) L 30.6 (JUL 11) Plt 203 (JUL 13) Na 139 (JUN 14) L 133 (JUN 13) 136 (JUN 12) 138 (JUN 30) K H 5.2 (JUL 13) H 5.7 (JUL 12) H 5.3 (JUL 11) 4.6 (JUN 01) Cl 112 (JUN 14) 104 (JUN 13) 107 (JUN 12) 111 (JUN 01) CO2 22 (JUN 14) 21 (JUN 13) 21 (JUN 12) 22 (JUN 30) BUN H 31 (JUN 14) H 31 (JUN 13) H 28 (JUN 12) H 30 (JUN 01) Cr H 2.46 (JUN 14) H 2.74 (JUN 13) H 2.31 (JUN 12) H 2.43 (JUN 30) Glu R L 68 (JUN 14) H 366 (JUL 12) H 249 (JUL 11) H 216 (JUN 30) Ca L 8.4 (JUL 13) L 8.2 (JUL 12) L 8.4 (JUL 11) 8.6 (JUN 30) ALB L 3.2 (JUL 13) Impression and Plan ARF: Cr better.Good UOP. Getting IVF. started trending up post op. . ACEI was held. no recent NSAIDs or contrast. No diuretics. BP borderline low. likely CKD4: Balseine cr 1.9-2.2 per chart. follows with nephrology HTN: BP was low yesterday. back up a little today. cont to hold ACEI. Hyperkalemia: better. Low K diet. kayexalate PRN for K > 5.7. ACEI held. S/P right TKA. High risk and complex pt documented in this encounter Plan of Treatment Not on file documented as of this encounter Visit Diagnoses Not on filedocumented in this encounter
--- OUTSIDE RECORDS SUMMARY | 2024-11-22 15:50 | XMS_ITS | Encounter Summary ---
Author Organization [employer] ([place], [place], [place], [place]) Address [address] [place] [address] Care Team Providers Care Operations Support Professionals Name Role Phone Unavailable Primary Care Provider Unavailabl e Encounter Details Date Type Department Care Team (Late st Contact Info) Description 07/11/2018 Transcribed Document [facility] Radiology [address] [place] [address] Provider, Layla Acosta MD Social [...] Note - Layla Rojo MD - 07/11/2018 7:23 PM EDT Pain Assessment Entered On: 07/11/2018 23:54 EDT Performed On: 07/11/2018 21:45 EDT by Trudi Mao RN Intervention Information: oxyCODONE Performed by Trudi Mao RN on 07/11/2018 20:45:00 EDT oxyCODONE,10mg Oral,Pain (Severe 7-10) Pain Assessment Pain Assessment : Follow-up assessment Pain Scale Used : FACES Pain Intervention, Drug : Medicated Pain Improved by Intervention : Yes Trudi Mao RN - 07/11/2018 23:54 EDT Pain Scale Intensity : 1 Trudi Mao RN - 07/11/2018 23:54 EDT Image 4 - Images currently included in the form version of this document have not been included in the text rendition version of the form. Electronically signed by Jorge Luis, Layla Conversion Grinder Set Up Operator [employer]ner at 09/22/2022 11:00 AM CDT documented in this encounter Plan of Treatment Not on file documented as of this encounter Visit Diagnoses Not on filedocumented in this encounter
--- OUTSIDE RECORDS SUMMARY | 2024-11-22 15:50 | XMS_ITS | Encounter Summary ---
Author Organization [employer] ([place], [place], [place], [place]) Address [address] [place] [address] Care Team Providers Care Shot Tube Machine Tender Name Role Phone Unavailable Primary Care Provider Unavailabl e Encounter Details Date Type Department Care Team (Late st Contact Info) Description 07/11/2018 Transcribed Document [facility]iology [address] [place] [address] Provider, Layla Acosta MD Social [...] Miscellaneous Notes * Cerner Conversion Note - [facility] Karla ProviderMD - 07/11/2018 3:47 PM EDT [facility] Main OR IntraOp Summary Primary Physician: FREDERIC ADAMS MD-ORT Finalized Date/Time: 07/11/18 16:06:00 Pt. Name: FLOR LUX JORDEN Royal/Sex: 1945 Female Med Rec #: [id number] Physician: FREDERIC ADAMS MD-ORT Financial #: [id number] Pt. Type: O Room/Bed: [facility] Admit/Disch: 07/11/18 04:54:00 - Institution: [facility] [place] IntraOp Case Attendance Entry 1 Entry 2 Entry 3 Case Attendee FREDERIC ADAMS NAPIER, CYNTHIA A, CRNA Bland, Jordyn A RN -ORT Role Performed Surgeon/Proceduralist, MILKING WORKER/Nurse Van Driver Title I Coordinator, First First Time In 07/11/18 14:44:00 07/11/18 14:15:00 07/11/18 14:15:00 Time Out 07/11/18 16:01:00 07/11/18 16:01:00 07/11/18 16:01:00 Procedure Knee Total Joint Knee Total Joint Knee Total Joint Replacement Replacement Replacement Other Attendee Superficial Wound Closed By: Last Modified By: Sigrid Fonseca RN Bland, Jordyn A, RN Bland, Jordyn A, RN 07/11/18 16:05:53 07/11/18 16:05:53 07/11/18 16:05:53 Entry 4 Entry 5 Entry 6 Case Attendee RUBEN NUNEZ Letitia, ST Combs, Leslie, Hot Metal Mixer Operator Role Performed Scrub, First Scrub, Second Assistive Personnel Time In 07/11/18 14:15:00 07/11/18 14:15:00 07/11/18 14:15:00 Time Out 07/11/18 16:01:00 07/11/18 16:01:00 07/11/18 14:57:00 Procedure Knee Total Joint Knee Total Joint Knee Total Joint Replacement Replacement Replacement Other Attendee Superficial Wound Closed By: Last Modified By: Sigrid Fonseca RN Bland, Jordyn A, RN Bland, Jordyn A, RN 07/11/18 16:05:53 07/11/18 16:05:53 07/11/18 16:05:53 Entry 7 Entry 8 Entry 9 Case Attendee RAMOS ALBA PAC OTHER, ATTENDEE ONUR REYES MD Role Performed Physician project administrative assistant Vendor Anesthesiologist Time In 07/11/18 14:55:00 07/11/18 14:15:00 07/11/18 15:00:00 Time Out 07/11/18 16:01:00 07/11/18 16:01:00 07/11/18 15:40:00 Procedure Knee Total Joint Knee Total Joint Knee Total Joint Replacement Replacement Replacement Other Attendee MANOLO MIRANDA Superficial Wound Closed By: Last Modified By: Sigrid Fonseca RN Bland, Jordyn A, RN Bland, Jordyn A, RN 07/11/18 16:05:53 07/11/18 16:05:53 07/11/18 16:05:53 Entry 10 Entry 11 Case Attendee Soni Jose, BREEZY ZHENG, MILKING WORKER Role Performed Title I Coordinator, First MILKING WORKER/Nurse Van Driver Time In 07/11/18 15:10:00 07/11/18 15:39:00 Time Out 07/11/18 15:36:00 07/11/18 16:01:00 Procedure Knee Total Joint Knee Total Joint Replacement Replacement Other Attendee Superficial Wound Closed By: Last Modified By: Sigrid Fonseca RN Bland, Jordyn A, RN 07/11/18 16:05:53 07/11/18 16:05:53 [facility] IntraOp Case Attendance Audit 07/11/18 16:05:53 Ceiling Cleaner: MICHAEL Modifier: MICHAEL 1 <+> Time Out 1 <*> Procedure Knee Total Joint Replacement 2 <+> Time Out 2 <*> Procedure Knee Total Joint Replacement 3 <+> Time Out 3 <*> Procedure Knee Total Joint Replacement 4 <+> Time Out 4 <*> Procedure Knee Total Joint Replacement 5 <+> Time Out 5 <*> Procedure Knee Total Joint Replacement 6 <*> Procedure Knee Total Joint Replacement 7 <+> Time Out 7 <*> Procedure Knee Total Joint Replacement 8 <+> Time Out 8 <*> Procedure Knee Total Joint Replacement 9 <*> Procedure Knee Total Joint Replacement 10 <*> Procedure Knee Total Joint Replacement 11 <+> Time Out 11 <*> Procedure Knee Total Joint Replacement 07/11/18 15:54:27 Ceiling Cleaner: MICHAEL Modifier: MICHAEL 9 <+> Time Out 9 <*> Procedure Knee Total Joint Replacement <+> 11 Case Attendee <+> 11 Role Performed <+> 11 Time In <+> 11 Procedure 07/11/18 15:36:52 Ceiling Cleaner: MICHAEL Modifier: MICHAEL 10 <+> Time Out 10 <*> Procedure Knee Total Joint Replacement 07/11/18 15:18:09 Ceiling Cleaner: MICHAEL Modifier: MICHAEL <+> 10 Case Attendee <+> 10 Role Performed <+> 10 Time In <+> 10 Procedure 07/11/18 15:02:08 Ceiling Cleaner: MICHAEL Modifier: JORDYNBLAND 1 <*> Time In 07/11/18 14:15:00 1 <*> Procedure Knee Total Joint Replacement 07/11/18 15:01:47 Ceiling Cleaner: MICHAEL Modifier: MICHAEL <+> 9 Case Attendee <+> 9 Role Performed <+> 9 Time In <+> 9 Procedure 07/11/18 14:57:15 Ceiling Cleaner: MICHAEL Modifier: MICHAEL 1 <*> Procedure Knee Total Joint Replacement 2 <+> Time In 2 <*> Procedure Knee Total Joint Replacement 3 <+> Time In 3 <*> Procedure Knee Total Joint Replacement 4 <+> Time In 4 <*> Procedure Knee Total Joint Replacement 5 <+> Time In 5 <*> Procedure Knee Total Joint Replacement 6 <+> Time In 6 <+> Time Out 6 <*> Procedure Knee Total Joint Replacement 7 <+> Time In 7 <*> Procedure Knee Total Joint Replacement 8 <+> Time In 8 <*> Procedure Knee Total Joint Replacement [facility] IntraOp Case Times Entry 1 Patient In Room Time 07/11/18 14:15:00 Out Room Time 07/11/18 16:01:00 Anesthesia Start Time 07/11/18 14:15:00 Stop Time 07/11/18 16:01:00 Anesthesia Ready 07/11/18 14:15:00 Surgery / Procedure Times Start Time 07/11/18 14:47:00 Stop Time 07/11/18 15:58:00 Last Modified By: Sigrid Fonseca RN 07/11/18 16:05:47 [facility] IntraOp Case Times Audit 07/11/18 16:05:47 Ceiling Cleaner: MICHAEL Modifier: MICHAEL <+> 1 Out Room Time <+> 1 Stop Time 07/11/18 15:58:06 Ceiling Cleaner: MICHAEL Modifier: MICHAEL 1 <*> Stop Time 07/11/18 15:59:00 07/11/18 15:57:03 Ceiling Cleaner: MICHAEL Modifier: HAFSAAND <+> 1 Stop Time 07/11/18 14:47:11 Ceiling Cleaner: MICHAEL Modifier: MICHAEL <+> 1 Start Time [facility] IntraOp Cautery Entry 1 ESU Identification Cautery Type Monopolar ESU ID Number [id number] ID Type Hospital Number Cautery Settings Cut Setting 70 Coag Setting 70 ESU Grounding Pad Ground Pad Type Adult Grounding Pad Site Left Upper Abdomen Grounding Pad Sigrid Fonseca RN Applied By Grounding Pad Site Warm, dry and intact Skin Condition Before Cautery Grounding Pad Site Unchanged, Warm, dry Skin Condition and intact After Cautery Last Modified By: Sigrid Fonseca RN 07/11/18 14:39:02 [facility] IntraOp Communication Entry 1 Communication To Family/Significant other Comment START Communication By Sigrid Fonseca RN Date and Time 07/11/18 14:47:00 Last Modified By: Sigrid Fonseca RN 07/11/18 14:47:25 [facility] IntraOp Counts Verification Entry 1 Entry 2 Procedure Knee Total Joint Knee Total Joint Replacement Replacement Count Info Count Type Sponge, Sharps, Sponge, Sharps Miscellaneous Counts Verification Baseline/pre-procedure Before wound closure Sequence Count Results Correct, surgeon Correct, surgeon notified notified If Incorrect or Waived complete the Counts Action Taken form: If Intentional Retention, complete the Intential Retention form: Counts Performed By Count Performed By RUBEN NUNEZ BENJAMIN P (Scrub) Count Performed By Sigrid Fonseca RN Shannon, Karen, RN (RN) Last Modified By: Sigrid Fonseca RN Bland, Jordyn A, RN 07/11/18 14:39:12 07/11/18 15:36:24 [facility] IntraOp Counts Verification Audit 07/11/18 15:36:24 Ceiling Cleaner: MICHAEL Modifier: MICHAEL <+> 2 Procedure <+> 2 Count Type <+> 2 Counts Verification Sequence <+> 2 Count Results <+> 2 Count Performed By (Scrub) <+> 2 Count Performed By (RN) [facility] IntraOp Counts Final Entry 1 Procedure Knee Total Joint Replacement Final Count Info Count Type Sponge, Sharps, Miscellaneous Counts Verification Skin Closure/end of Sequence procedure Count Results Correct, surgeon notified Counts Performed By Count Performed By Cristy Bee ST (Scrub) Count Performed By Sigrid Fonseca RN (RN) Last Modified By: Sigrid Fonseca RN 07/11/18 15:54:33 [facility] IntraOp Counts Final Audit 07/11/18 15:54:33 Ceiling Cleaner: MICHAEL Modifier: MICHAEL 1 <*> Procedure Knee Total Joint Replacement 1 <+> Count Performed By (Scrub) E IntraOp Cultures and Spec Summary Entry 1 Cultrures and Specimens Specimen Ordered: Yes Specimens Types Pathology Specimen(s) Labeled Pathology and Sent to Last Modified By: Sigrid Fonseca RN 07/11/18 14:39:19 [facility] IntraOp Departure from OR Entry 1 Integumentary Assessment Integumentary WDL Assessment WDL Transfer/Handoff Transfer to PACU Phase I Handoff Method Bedside/Face to face Post-op Transport Bed (including Via specialty) Patient Transport STEWART SAWYER, Accompanied by Mairan REYNAGA Jordyn A, RN Last Modified By: Sigrid Fonseca RN 07/11/18 15:18:23 [facility] IntraOp Drains and Tubes Entry 1 Device Type Hemovac Size 1/8 Drain/Tube Activity Inserted Device Location RIGHT KNEE Method of Drainage Compression Last Modified By: Sigrid Fonseca RN 07/11/18 14:39:29 [facility] IntraOp Dressing and Packing Entry 1 Type Dressing Location RIGHT KNEE Wound Dressing Item Sukhdeep, 4x4's, Xeroform, Webril, Steristrip Supplemental Limb immobilizer, Cold Applications pack Applied By RAMOS ALBA PAC Last Modified By: Sigrid Fonseca RN 07/11/18 14:39:36 [facility] IntraOp Fire Risk Assessment Entry 1 Fire Info Surgical Site or 0- No Incision Above the Xyphoid Open O2 Source 0- No (Mask or Cannula) Available Ignition 1- Yes (ESU, Laser, Light Source) Fire Risk 1 Assessment Score Fire Score Fire Risk Yes Assessment Complete Fire Risk Sigrid Fonseca RN Assessment Verified By Fire Risk 07/11/18 14:12:00 Assessment Verified Date/Time Fire Risk Standard Fire Yes Safety Precautions Followed Last Modified By: Sigrid Fonseca RN 07/11/18 14:39:49 [facility] IntraOp General Case Sawmill Relief Worker 1 Case Information OR OR 05 [facility] [place] Case Level 1 Room Verified Yes Wound Class I - Clean Specialty SN Orthopedic Anesthesia Type General ASA Class 3 Diagnosis Preop Diagnosis DJD RIGHT KNEE Postop Same As Preop No Postop Diagnosis DICTATED BY MD Last Modified By: Sigrid Fonseca RN 07/11/18 14:40:06 [facility] IntraOp Implant Log Entry 1 Entry 2 Entry 3 Type Implant (Synthetic) Implant (Synthetic) Implant (Synthetic) Implant Log Implant Type Bone Cement Hardware Hardware Tissue Implant Type Implant CEMENT BONE COBALT HV COMP TIB BRG VANGRD TY TIB I-BEAM FIX Identification [id number] BIOMET [id number] Description Implant Quantity 2 1 1 Implant Site RIGHT KNEE RIGHT KNEE RIGHT KNEE Implant Identification Model Number Implant Identification Serial Number Implant [id number] Identification Lot Number Implant Dj Surg:Encore Biomet Biomet Identification Med:Edmund Scratch Finisher Name: Implant 600-15-000 [id number] Identification Catalog Number Implant Size Implant Has an Yes Yes Yes Expiration Date Implant Expiration 09/15/19 05/16/23 03/06/28 Date Wasted Radioactive Material Time Implanted Tissue Implant Continue for Tissue Implant Documentation Tissue Identification Number Graft Prep Per Scratch Finisher Instructions: Tissue Preparation Method: Reconstitution Solution: Reconstitution Solution Lot Number Reconstitution Solution Expiration Date: Thawing Solution Thawing Solution Lot Number Thawing Solution Expiration Date Preparation Materials, Other Preparation Materials, Other Lot Number Preparation Materials, Other Expiration Date Tissue Prepared/Processed By Scratch Finisher Paperwork Completed Implant Type Comment Last Modified By: Sigrid Fonseca RN Bland, Jordyn A, RN Bland, Jordyn A, RN 07/11/18 15:32:02 07/11/18 15:32:02 07/11/18 15:32:02 Entry 4 Entry 5 Type Implant (Synthetic) Implant (Synthetic) Implant Log Implant Type Hardware Hardware Tissue Implant Type Implant COMP FEM CR INTLOK VGRD PATELLA THIN Identification 62.5 [id number] Description Implant Quantity 1 1 Implant Site RIGHT KNEE RIGHT KNEE Implant Identification Model Number Implant Identification Serial Number Implant [id number] Identification Lot Number Implant Biomet Biomet Identification Scratch Finisher Name: Implant [id number] Identification Catalog Number Implant Size Implant Has an Yes Yes Expiration Date Implant Expiration 05/18/28 05/09/23 Date Wasted Radioactive Material Time Implanted Tissue Implant Continue for Tissue Implant Documentation Tissue Identification Number Graft Prep Per Scratch Finisher Instructions: Tissue Preparation Method: Reconstitution Solution: Reconstitution Solution Lot Number Reconstitution Solution Expiration Date: Thawing Solution Thawing Solution Lot Number Thawing Solution Expiration Date Preparation Materials, Other Preparation Materials, Other Lot Number Preparation Materials, Other Expiration Date Tissue Prepared/Processed By Scratch Finisher Paperwork Completed Implant Type Comment Last Modified By: Sigrid Fonseca RN Bland, Jordyn A, RN 07/11/18 15:32:02 07/11/18 15:32:02 [facility] [place] Intra[facility] Implant Log Audit 07/11/18 15:32:02 Ceiling Cleaner: MICHAEL Modifier: MICHAEL 1 <*> Implant Identification Description CEMENT BONE COBALT HV [id number] 1 <*> Implant Identification Lot Number [id number] 1 <*> Implant Identification Scratch Finisher Dj Surg:Encore Med:Traver Name: 1 <*> Implant Expiration Date 09/15/19 1 <*> Implant Site RIGHT KNEE 1 <*> Implant Quantity 2 1 <*> Implant Identification Catalog [id number] Number 1 <*> Implant Type Bone Cement 1 <*> Implant Has an Expiration Date Yes 1 <*> Type Implant (Synthetic) 2 <*> Implant Identification Description COMP TIB BRG VANGRD [id number] 2 <*> Implant Identification Scratch Finisher Biomet Name: 2 <*> Implant Expiration Date 05/16/23 2 <*> Implant Site RIGHT KNEE 2 <*> Implant Quantity 1 2 <*> Implant Identification Catalog [id number] Number 2 <*> Implant Type Hardware 2 <*> Implant Has an Expiration Date Yes 2 <*> Type Implant (Synthetic) 3 <*> Implant Identification Description TY TIB I-BEAM FIX BIOMET [id number] <*> Implant Identification Scratch Finisher Biomet Name: 3 <*> Implant Expiration Date 03/06/28 3 <*> Implant Site RIGHT KNEE 3 <*> Implant Quantity 1 3 <*> Implant Identification Catalog [id number] Number 3 <*> Implant Type Hardware 3 <*> Implant Has an Expiration Date Yes 3 <*> Type Implant (Synthetic) 4 <+> Implant Identification Description 4 <+> Implant Identification Scratch Finisher Name: 4 <+> Implant Expiration Date 4 <*> Implant Site RIGHT KNEE 4 <*> Implant Quantity 1 4 <+> Implant Identification Catalog Number 4 <*> Implant Type Hardware 4 <*> Implant Has an Expiration Date Yes 4 <*> Type Implant (Synthetic) 5 <*> Implant Identification Description COMP FEM CR INTLOK VGRD 62.5 [id number] 5 <+> Implant Identification Lot Number 5 <*> Implant Identification Scratch Finisher Biomet Name: 5 <*> Implant Expiration Date 05/18/28 5 <*> Implant Site RIGHT KNEE 5 <*> Implant Quantity 1 5 <*> Implant Identification Catalog [id number] Number 5 <*> Implant Type Hardware 5 <*> Implant Has an Expiration Date Yes 5 <*> Type Implant (Synthetic) 6 <-> Implant Identification Description PATELLA THIN [id number] 6 <-> Implant Identification Lot Number [id number] <-> Implant Identification Scratch Finisher Biomet Name: 6 <-> Implant Expiration Date 05/09/23 6 <-> Implant Site RIGHT KNEE 6 <-> Implant Quantity 1 6 <-> Implant Identification Catalog [id number] Number 6 <-> Implant Type Hardware 6 <-> Implant Has an Expiration Date Yes 6 <-> Type Implant (Synthetic) 07/11/18 15:30:47 Ceiling Cleaner: MICHAEL Modifier: JORDYNBLAND <+> 2 Implant Identification Description <+> 2 Implant Identification Scratch Finisher Name: 07/11/18 15:29:37 Ceiling Cleaner: MICHAEL Modifier: MICHAEL <+> 3 Implant Identification Description <+> 3 Implant Identification Scratch Finisher Name: <+> 3 Implant Expiration Date <+> 3 Implant Identification Catalog Number 6 <*> Implant Identification Description PATELLA THIN [id number] 6 <+> Implant Site 07/11/18 15:22:42 Ceiling Cleaner: MICHAEL Modifier: JORDYNBLAND <+> 5 Implant Identification Description <+> 5 Implant Identification Scratch Finisher Name: <+> 5 Implant Expiration Date <+> 5 Implant Identification Catalog Number 07/11/18 15:20:08 Ceiling Cleaner: MICHAEL Modifier: MICHAEL <+> 6 Implant Identification Description <+> 6 Implant Identification Lot Number <+> 6 Implant Identification Scratch Finisher Name: <+> 6 Implant Expiration Date <+> 6 Implant Quantity <+> 6 Implant Identification Catalog Number <+> 6 Implant Type <+> 6 Implant Has an Expiration Date <+> 6 Type 07/11/18 15:16:19 Ceiling Cleaner: MICHAEL Modifier: MICHAEL <+> 1 Implant Identification Description <+> 1 Implant Identification Lot Number <+> 1 Implant Identification Scratch Finisher Name: <+> 1 Implant Expiration Date <+> 1 Implant Identification Catalog Number <+> 2 Implant Expiration Date <+> 2 Implant Identification Catalog Number [facility] IntraOp Intraoperative Assessment Entry 1 Handoff Method Bedside/Face to face Valid History / Yes Physical in Chart Preoperative Yes Checklist Reviewed/Evaluated Allergies Reviewed Yes Patient is Latex No Sensitive Isolation Not applicable Precautions Noted Level of WDL Consciousness (WDL = Alert, Oriented to Person, Place, and Time) Skin Assessment Yes Verified Present Upon IVs Arrival to OR Last Modified By: Sigrid Fonseca RN 07/11/18 14:47:53 [facility] IntraOp Intraoperative Equipment Entry 1 Type Equipment Equipment Equipment Reina Suction System Intraop Monitoring Antiembolic Devices Antiembolic Devices Sequential compression device, knee high Antiembolic Device Left Location Scopes Photo/Video Documentation Photo No Video No Last Modified By: Sigrid Fonseca RN 07/11/18 14:47:58 [facility] IntraOp Medication Admin Entry 1 Entry 2 Entry 3 Medication/Irrigant TRANEXAMIC ACID hydrogen peroxide 3% - vancomycin 1Gm vial - 1000MG/10 ML [id number] Combo Med List Time Administered Route of TOPICALW/ 25ML NACL IRRIGANT TOPICAL Administration Dose Dose 1000 1 Unit of Measure mg gram Volume 10 ML BOTTLE Administered By FREDERIC ADAMS CHRISTENSEN, FREDERIC, FREDERIC ADAMS MD-ORT MD-ORT -ORT Procedure Irrigation Irrigant Volume In Irrigant Volume Out Last Modified By: Sigrid Fonseca RN Bland, Jordyn A, RN Bland, Jordyn A, RN 07/11/18 14:48:08 07/11/18 14:48:08 07/11/18 14:48:08 Entry 4 Medication/Irrigant ANESTHETIC COCKTAIL-ANGIE Combo Med List Time Administered Route of INJECTION Administration Dose Dose Unit of Measure Volume Administered By FREDERIC ADAMS MD-ORT Procedure Irrigation Irrigant Volume In Irrigant Volume Out Last Modified By: Sigrid Fonseca RN 07/11/18 14:48:08 [facility] IntraOp Patient Positioning Entry 1 Procedure Knee Total Joint Replacement Body Position Supine Left Arm Position Secured on padded arm board Right Arm Position Secured on padded arm board Left Leg Position Uncrossed, parallel Right Leg Position Uncrossed, parallel Feet Uncrossed Yes Pressure Points Yes Checked Positioning Devices Foot Rest, Pillows, Safety Strap, Chest, Sand bags Device Position FOOT PROP ON BED AT PATIENT'S MID CALF AND ANKLE; LATERAL POST AT TOURNIQUET LEVEL Positioned By STEWART SAWYER CRNA, Lucretia Calvert, Hot Metal Mixer Operator, Sigrid Fonseca RN, RUBEN NUNEZ Position Verified Positioning Yes Verified by Anesthesia Positioning Yes Verified by Surgeon Last Modified By: Sigrid Fonseca RN 07/11/18 14:48:24 [facility] IntraOp Sign In Entry 1 Patient, Site, Yes Procedure Identified Surgical Consent Yes Confirmed Relevant Surgical Yes Documents Available Surgical Site Yes Marked by person performing procedure Anesthesia Machine Yes Check Completed Medication Checks Yes Completed Allergies Yes Airway Difficult Yes Airway/Aspiration Intervention Equipment Available Blood Loss Risk Yes Blood Loss Yes Intervention Equipment Prepared and Ready Hypothermia Risk Yes Warming Measures Yes Taken Last Modified By: Sigrid Fonseca RN 07/11/18 14:48:28 [facility] Intra Op Sign Out Entry 1 RN Confirmation Surgical Yes Procedure(s) Identified Instrument, Sponge Yes and Sharps Counts Correct/Documented Equipment Problems N/A Documented Specimen Labeled Yes Correctly Urinary Catheter N/A Documented in IView Kennedy Patient Yes Recovery Concerns Reviewed with Anesthesia Provider, Surgeon and RN Kennedy Patient Yes Management Concerns Reviewed with Anesthesia Provider, Surgeon and RN Safety Checklist Yes Elements Complete? RN Sign Out Sigrid Fonseca RN Signature RN Sign Out 07/11/18 16:01:00 Signature Date/Time Plan of Care Outcome - Fire Risk OUTCOME STATEMENT: Goal met Patient is free from injury related to surgical fire Plan of Care Outcome - Pt Positioning OUTCOME STATEMENT: Goal met Absence of signs and symptoms of positioning injury. Plan of Care Outcome - Skin Prep OUTCOME STATEMENT: Goal met Intraoperative care is consistent with measures to prevent infection Plan of Care Outcome - Xray/Images OUTCOME STATEMENT: N/A Absence of observable signs or symptoms of radiation injury Plan of Care Outcome - Counts OUTCOME STATEMENT: Goal met Absence of signs and symptoms of injury related to extraneous objects Last Modified By: Sigrid Fonseca RN 07/11/18 16:05:52 [facility] Intra Op Sign Out Audit 07/11/18 16:05:52 Ceiling Cleaner: MICHAEL Modifier: MICHAEL <+> 1 RN Sign Out Signature Date/Time [facility] IntraOp Skin Prep Entry 1 Procedure Knee Total Joint Replacement Prescribed Yes Pre-Surgical Prep Completed Prep Area RIGHT LEG AND FOOT Intraop Prep Prep Agents DuraPrep, Alcohol Prep by Sigrid Fonseca RN Hair Removal Methods No hair removal performed Last Modified By: Sigrid Fonseca RN 07/11/18 14:48:39 [facility] IntraOp Surgical Procedures Entry 1 Procedure Knee Total Joint Replacement Additional RIGHT TOTAL KNEE Procedure REPLACEMENT Description Primary Procedure Yes Primary Surgeon FREDERIC ADAMS MD-ORT Start 07/11/18 14:47:00 Stop 07/11/18 15:58:00 Anesthesia Type General Specialty SN Orthopedic Wound Class I - Clean Last Modified By: Sigrid Fonseca RN 07/11/18 15:58:11 [facility] IntraOp Surgical Procedures Audit 07/11/18 15:58:11 Ceiling Cleaner: MICHAEL Modifier: JORDYNBLAND 1 <*> Procedure Knee Total Joint Replacement 1 <*> Stop 07/11/18 15:59:00 07/11/18 15:57:05 Ceiling Cleaner: MICHAEL Modifier: HAFSAAND <+> 1 Stop [facility] IntraOp Temp Regulation Devices Entry 1 Temp Regulation Temperature Forced Air Warming Regulation Device device Temperature Upper body Regulation Site Temperature STEWART SAWYER CRNA Regulation Device Applied by Last Modified By: Sigrid Fonseca RN 07/11/18 14:48:45 [facility] IntraOp Time Out Entry 1 Procedure to be Knee Total Joint Performed Replacement Time Out Time Out Pause Time 07/11/18 14:45:00 All activity Yes suspended (unless life threatening emergency) Team Verbally Correct patient Confirms Information identity, Correct side and site are marked, Consent form is present and accurate, Agreement on the procedure to be done, Correct patient position, Relevant images/results properly labeled/appropriately displayed, Confirm antibiotics have been administered, Confirm the skin prep has dried, Confirm prosthesis/implant/devic e is present, Performed in location of procedure after prepped/draped Antibiotic Yes Prophylaxis Administered Or In Progress Within the Last 60 Minutes Beta Juan Manuel N/A Administered Venous Yes Thromboembolism Prophylaxis Required Anticipated Critical Events Surgeon None expected Anesthesia Provider None expected Nursing Assures Sterility of instruments, Implant Availability Essential Imaging Yes Labeled and Displayed Last Modified By: Sigrid Fonseca RN 07/11/18 14:47:49 [facility] IntraOp Tourniquet Entry 1 Type Pneumatic Setting 350 mmHg Pheumatic Yes Tourniquet Checked Per Protocol Size 34 inches Placement Thigh, right upper Skin Protection - Yes Padded Under Cuff Applied By Calvert, Lucretia, Hot Metal Mixer Operator Removed By RAMOS ALBA, PAC Times Start Time 07/11/18 14:46:00 Stop Time 07/11/18 15:54:00 Last Modified By: Sigrid Fonseca RN 07/11/18 15:54:51 [facility] IntraOp Tourniquet Audit 07/11/18 15:54:51 Ceiling Cleaner: MICHAEL Modifier: MICHAEL <+> 1 Stop Time Case Comments <None> Finalized By: Sigrid Fonseca, RN Document Signatures Signed By: Sigrid Fonseca RN 07/11/18 16:06 documented in this encounter Plan of Treatment Not on file documented as of this encounter Visit Diagnoses Not on filedocumented in this encounter
--- OUTSIDE RECORDS SUMMARY | 2024-11-22 15:50 | XMS_ITS | Encounter Summary ---
Author Organization [employer] ([place], [place], [place], [place]) Address [address] [place] [address] Care Team Providers Care Carding Supervisor Name Role Phone Unavailable Primary Care Provider Unavailabl e Encounter Details Date Type Department Care Team (Late st Contact Info) Description 07/11/2018 Transcribed Document [facility] [address] [place] [address] ProviderLayla MD Social History Tobacco [...] Miscellaneous Notes * Cerner Conversion Note - [facility] Karla Rojo MD - 07/11/2018 7:23 PM EDT Pain Assessment Entered On: 07/12/2018 22:55 EDT Performed On: 07/12/2018 21:49 EDT by Kieran Spivey RN Intervention Information: oxyCODONE Performed by Kieran Spivey RN on 07/12/2018 20:49:00 EDT oxyCODONE,5mg Oral,Pain (Moderate 4-6) Pain Assessment Pain Assessment : Follow-up assessment Pain Scale Goal : 3 Pain Intervention, Drug : Medicated Pain Improved by Intervention : Yes Kieran Spivey RN - 07/12/2018 22:55 EDT documented in this encounter Plan of Treatment Not on file documented as of this encounter Visit Diagnoses Not on filedocumented in this encounter
--- OUTSIDE RECORDS SUMMARY | 2024-11-22 15:50 | XMS_ITS | Referral Summary ---
Author Organization [employer] ([place], [place], [place], [place]) Address [address] [place] [address] Care Team Providers Care Lay Brother Name Role Phone Unavailable Primary Care Provider [...]
--- OUTSIDE RECORDS SUMMARY | 2024-11-22 15:50 | XMS_ITS | Encounter Summary ---
Author Organization [employer] ([place], [place], [place], [place]) Address [address] [place] [address] Care Team Providers Care Retail Chain Store Area Supervisor Name Role Phone Unavailable Primary Care Provider Unavailabl e Encounter Details Date Type Department Care Team (Late st Contact Info) Description 07/11/2018 Transcribed Document [facility] [address] [place] [address] Provider, Layla Acosta MD Social [...] ProviderMD - 07/11/2018 7:23 PM EDT Evaluation, Occupational Therapy Entered On: 07/12/2018 11:52 EDT Performed On: 07/12/2018 8:20 EDT by JACK LUCIO, OTR/L General Information, OT Visit Type, OT : Initial evaluation Patient Orders : Order Date Order Ordering 07/11/2018 18:24 OT Evaluation and Treatment Ordered By: FREDERIC ADAMS MD-ORMeghan 07/11/2018 18:24 OT Treatment Instructions Ordered By: FREDERIC ADAMS MD-ORT Active Diagnoses : No Qualifying Diagnoses Therapy Diagnosis, OT : reduced mobility Admission Date : 07/11/2018 04:54 Assisted by, OT : Physical Therapist Personal Devices : Personal Devices Dentures, upper, Dentures, lower Assistive Devices : Assistive Devices No Devices Recorded JACK LUCIO OTR/Carolyn - 07/12/2018 11:48 EDT General Status Patient Received Status : Up in chair, Chair alarm activated Treatment Start Time : 07/12/2018 8:20 EDT Patient Left Status : Up in chair, Chair alarm activated, RN/PCT informed, Communication board completed, All needs met and within reach RN/PCT Informed Comment : nursing ok'd tx. id and verified. Treatment End Time : 07/12/2018 8:36 EDT Treatment Time : 16 Minute(s) JACK LUCIO OTR/Carolyn - 07/12/2018 11:48 EDT History and Environment, OT Living Situation, Therapy : Home Patient Lives With : Spouse Persons Assisting Patient at Home : Spouse Professional Skilled Services : None Persons Providing Information : Patient Home Equipment, Therapy : Commode, Shower Equipment, Walker Commode : Commode, bedside Shower Equipment : Shower Chair, with back Walker : Walker, front wheel Home Setup : One story Stairs : Yes Stair Location(s) : Outside Outside Stairs, Number of Steps : 2 Railing Outside : Yes Outside Railing Position : Left, going up JACK LUCIO OTR/Carolyn - 07/12/2018 11:48 EDT Prior LOF Bathing, OT : Independent Prior LOF Bed Mobility : Independent Prior LOF Upper Body Dressing, OT : Independent Prior LOF Lower Body Dressing, OT : Independent Prior LOF Toileting : Independent Prior LOF Transfer : Independent Prior LOF Grooming, OT : Independent Prior LOF for IADLs, OT : Independent JACK LUCIO OTR/Carolyn 07/12/2018 11:48 EDT Upper Extremity Upper Extremity Dominance : Right Right UE Active ROM : WFL Right UE Strength : WFL Left UE Active ROM : WFL Left UE Strength : WFL Upper Extremity Strength Impaired : No Fine Motor Coordination Impaired : No JACK LUCIO OTR/Carolyn 07/12/2018 11:48 EDT Self Care/Home Management, OT Self Feeding Assist Level, OT : Independent, complete Grooming Assist Level, OT : Independent, complete Bathing Assist Level, OT : Supervision or set-up Upper Body Dressing Assist Level, OT : Independent, complete Lower Body Dressing Assist Level, OT : Supervision or set-up Toileting Assist Level : Supervision or set-up Toileting Device : [id number] commode Toilet Transfer Assist Level : Supervision or set-up Toilet Transfer Device : Belt, gait, Walker, rolling, [id number] commode JACK LUCIO OTR/Carolyn 07/12/2018 11:48 EDT Mobility Device/Prosthesis/Wt Bearing Weight Bearing Status Maintained : Yes Weight Bearing Status : As tolerated Functional Mobility Device : Gait belt, Walker, front wheel Functional Mobility with Brace/Splint : No JACK LUCIO OTR/Carolyn 07/12/2018 11:48 EDT Functional Mobility Mobility Grid Sit to Stand : Supervision/set-up Stand to Sit : Supervision/set-up JACK LUCIO OTR/Carolyn 07/12/2018 11:48 EDT Activity Tolerance, OT Activity Comment : GOOD JACK LUCIO OTR/Carolyn 07/12/2018 11:48 EDT Cognition Assessment, OT Orientation : Oriented x 4 JACK LUCIO OTR/Carolyn 07/12/2018 11:48 EDT Education OT Occupational Therapy Education Grid Activity of Daily Living Training : Verbalizes understanding, Returns demonstration Functional Mobility Training : Verbalizes understanding, Returns demonstration Home Safety : Verbalizes understanding (Comment: home safety and car transfer handout [JACK LUCIO OTR/Carolyn 07/12/2018 11:48 EDT] ) Role of Occupational Therapy : Verbalizes understanding JACK LUCIO OTR/Carolyn 07/12/2018 11:48 EDT Indication Assessment, OT Occupational Therapy Indicated : No Occupational Therapy Not Indicated : Other: see OT chidi. JACK LUCIO OTR/Carolyn 07/12/2018 11:48 EDT Plan of Care, OT OT Tx Plan/Goals Established w Patient : No Reason OT Treatment/Plan Not Established : see OT evishmael Plan of Care Comment, OT : see OT JACK Roth OTR/Carolyn 07/12/2018 11:48 EDT Treatment Note Subjective Comment : pt ok'd tx. Additional Objective Information : EVAL = 8 min ADL = 8 min Pt educated on ADL transfers, LBDressing, and home safety. Assessment : Pt is set-up/SBA with ADL transfers and LB self care tasks. Pt is scheduled to DC home. No further skilled OT needs at this level of care. Plan for Treatment : OT eval only. JACK LUCIO OTR/Carolyn - 07/12/2018 11:48 EDT Pain Assessment Pain Scaled Used : 0-10 Pain scale Pain Score Pre-Intervention : 4 Pain Score During-Intervention : 4 Pain Score Post-Intervention. : 4 Location : Knee, right Pain Comment : nurse aware JACK LUCIO OTR/Carolyn - 07/12/2018 11:48 EDT Image 1 - Images currently included in the form version of this document have not been included in the text rendition version of the form. Anticipated Discharge Needs, OT/PT Anticipated Discharge to OT : Other: to be determined. Recommend Continued Therapy at Discharge : Yes JACK LUCIO OTR/Carolyn - 07/12/2018 11:[address] [facility] OT Charges OT Selfcare/Hm Mgmt Ea 15 Min : 1 OT Eval Low Complexity : 1 JACK LUCIO OTR/Carolyn - 07/12/2018 11:48 EDT documented in this encounter Plan of Treatment Not on file documented as of this encounter Visit Diagnoses Not on filedocumented in this encounter
--- OUTSIDE RECORDS SUMMARY | 2024-11-22 15:50 | XMS_ITS | Encounter Summary ---
Author Organization [employer] ([place], [place], [place], [place]) Address [address] [place] [address] Care Team Providers Care Lead Cargoman Name Role Phone Unavailable Primary Care Provider Unavailabl e Encounter Details Date Type Department Care Team (Late st Contact Info) Description 07/11/2018 Transcribed Document [facility] [address] [place] [address] Provider, Layla Acosta MD Social [...] Notes * Cerner Conversion Note - meryl Rojo MD - 07/11/2018 2:16 PM EDT Pre Procedure Adult Entered On: 07/11/2018 13:20 EDT Performed On: 07/11/2018 13:16 EDT by RUBY ARIZA RN Height and Weight, Clinical Dosing Height Source : Stated Height Entry Format : [place] Height, Feet : 5 ft(Converted to: 152 cm, 60 Inch) Height, Inches : 0 Inch(Converted to: 0 ft 0 Inch, 0.00 cm) Clinical Height : 152.4 cm Weight Source : Standing scale Weight Entry Format : [place] Clinical Dosing Weight : 73.09 kg Weight, Pounds : 160.8 lb Body Surface Area (BSA) : 1.7 m2 Body Mass Index : 31.5 kg/m2 (HI) [place] Body Weight : 45 kg RUBY ARIZA RN - 07/11/2018 13:16 EDT Health Histories Smoking Status : 10 or more cigarettes (1/2 pack or more)/day in last 30 days Smokeless Tobacco Status : Never Desires Tobacco Cessation Medication : No Reason for No Tobacco Cessation Medication : Refuses FDA approved medications RUBY ARIZA RN - 07/11/2018 13:16 EDT Social History (As Of: 07/11/2018 13:41:35 EDT) Tobacco: Smoking Status Former smoker. Use [...] Illness : No Tuberculosis Symptoms : None RUBY ARIZA RN - 07/11/2018 13:16 EDT Anesthesia/Transfusion History Family History of Anesthesia Reaction : No prior transfusion(s) Transfusion History : Prior anesthesia without reaction Family History of Anesthesia Reaction : None RUBY ARIZA RN - 07/11/2018 13:16 EDT Functional Assessment Living Situation : Home Patient Lives With : Spouse Persons Assisting Patient at Home : Spouse Current Daily Living Assistance : None Sensory Deficits : None Mobility Assistance Prior to Admission : Partial assistance ONEIL Hx Falls Immediate/Within 3 Months : No Current Home Treatments : Blood glucose monitoring Home Equipment : Walker Walker : Walker, four wheel Professional Skilled Services : None Special Services and Community Resources : None RUBY ARIZA RN - 07/11/2018 13:16 EDT Psychosocial History Do You Have a History of the Following? : Anxiety, Depression Currently in Unsafe Situation : No Do You Have a Support System? : Yes Tried to Harm Yourself in the Past? : No Thoughts of Harming/Killing Yourself : No RUBY ARIZA RN - 07/11/2018 13:16 EDT Advance Directive Patient has Advance Directive *Q : Yes, Advance Directive with the patient Advance Directive Type : Living will Copy Advance Directive Verified/on Chart : No RUBY ARIZA RN - 07/11/2018 13:16 EDT Teaching/Learning Assessment Barriers To Learning : None evident Individuals Taught : Patient, Spouse, Child Readiness to Learn : Cooperative Baseline Knowledge of Topic : Good Readiness to Learn : Explanation, Printed materials Learning Style Preferences Patient : Printed materials, Verbal explanation Learning Style Preferences Family : Printed materials, Verbal explanation RUBY ARIZA RN - 07/11/2018 13:38 EDT Education Topics, Periop Preadmission Perioperative Education Grid Arrival Time/Place : Verbalizes understanding Falls : Verbalizes understanding IV's : Verbalizes understanding NPO Status/Directions : Verbalizes understanding Pain Management : Verbalizes understanding Preprocedure Preparations : Verbalizes understanding Preprocedure Tests/Labs : Verbalizes understanding Responsible Adult : Verbalizes understanding Take/Hold Medications Pre-Procedure : Verbalizes understanding RUBY ARIZA RN - 07/11/2018 13:38 EDT General Info Patient Arrival Date/Time : 07/11/2018 10:40 EDT RUBY ARIZA RN - 07/11/2018 13:38 EDT Arrived From : Home Mode of Arrival [...] Obtained From : Patient Primary Language : Kosovan Preferred Communication Mode : Verbal Communication Barrier : None Currently Lactating : No Status : N/A RUBY ARIZA RN - 07/11/2018 13:16 EDT Sleep Apnea Risk Assmt Hx of Obstructive Sleep Apnea Diagnosis : No Snore Loudly : Yes Tired, Fatigued, or Sleepy During Day : No Observed Stopping Breathing During Sleep : No Have/Are Being Treated for Hypertension : Yes BMI Greater Than 35 kg/m2 : No Age over 50 Years Old : Yes Gender Male : No RUBY ARIZA RN - 07/11/2018 13:16 EDT Waldemar Scale Waldemar Sensory Perception : No impairment Waldemar Moisture : Rarely moist Waldemar Activity : Walks frequently Waldemar Mobility : Slightly limited Waldemar Nutrition : Excellent Waldemar Friction and Shear : No apparent problem Waldemar Score : 22 RUBY ARIZA RN - 07/11/2018 13:38 EDT Oxygen Therapy Oxygen Therapy Mode : Room air RUBY ARIZA RN - 07/11/2018 13:16 EDT Pain Assessment Pain Assessment : Initial assessment Pain Scale Used : 0-10 Scale RUBY ARIZA RN - 07/11/2018 13:16 EDT Fall Risk Scales ABCs Fall Injury Risk Identification : Surgery ABC Fall Injury Risk : Moderate to high injury risk ONEIL Hx Falls Immediate/Within 3 Months : No Oneil Secondary Diagnosis : Yes ONEIL Use of Ambulatory Aid : Crutches/Cane/Walker ONEIL IV Therapy or IV Access : Yes Oneil Gait/Transferring : Normal, bedrest, immobile Oneil Mental Status : Oriented to own ability Oneil Fall Risk Score : 50 ONEIL Fall Scale Risk Level : 46 or > High Risk [place] Fall Interventions : Adequate lighting, Bed in low position, Call device within reach, Hourly comfort/safety rounds, Non-slip footwear, Personal items within reach, Upper side-rails up, Wheels locked RUBY ARIZA RN - 07/11/2018 13:38 EDT Fall Risk Education Grid Assistive Equipment Use : Verbalizes understanding Call light use : Verbalizes understanding Nonskid Footwear Use : Verbalizes understanding Siderails use/risks : Verbalizes understanding RUBY ARIZA RN - 07/11/2018 13:38 EDT Barriers to Learning : None evident Individuals Taught : Patient, Spouse, Child Readiness to Learn : Cooperative Baseline Knowledge of Topic : Good Teaching Method : Printed materials Learning Style Preferences Family : Printed materials, Verbal explanation Learning Style Preferences Patient : Printed materials, Verbal explanation Teaching Evaluation : Verbalizes understanding RUBY ARIZA RN - 07/11/2018 13:38 EDT Education Topics, Day of Surgery DayofSurgery Education Grid Anesthesia/Sedation : Verbalizes understanding Fall Risks : Verbalizes understanding Family Instructions : Verbalizes understanding IV's : Verbalizes understanding Medication Instructions : Verbalizes understanding Pain Management : Verbalizes understanding Responsible Adult : Verbalizes understanding RUBY ARIZA RN - 07/11/2018 13:38 EDT Valuables and Belongings Valuables and Belongings : Clothing, Personal devices, Personal items Clothing : Common streetwear Clothing Disposition : With family RUBY ARIZA RN - 07/11/2018 13:16 EDT Personal Device Disposition : With patient RUBY ARIZA RN - 07/11/2018 15:01 EDT Personal Devices : Dentures, upper, Dentures, lower Personal Items : Purse Personal Items Disposition : With family RUBY ARIZA RN - 07/11/2018 13:16 EDT Pain Scale Intensity : 0 RUBY ARIZA RN - 07/11/2018 13:16 EDT Image 4 - Images currently included in the form version of this document have not been included in the text rendition version of the form. [place] Coma Kirstin Best Motor Response : Obey commands Kirstin Best Verbal Response : Oriented Kirstin Eye Opening Response : Spontaneous Kirstin Coma Score : 15 RUBY ARIZA RN - 07/11/2018 13:16 EDT documented in this encounter Plan of Treatment Not on file documented as of this encounter Visit Diagnoses Not on filedocumented in this encounter
--- OUTSIDE RECORDS SUMMARY | 2024-11-22 15:50 | XMS_ITS | Encounter Summary ---
Author Organization [employer] ([place], [place], [place], [place]) Address [address] [place] [address] Care Team Providers Care Transplanter Name Role Phone Unavailable Primary Care Provider Unavailabl e Encounter Details Date Type Department Care Team (Late st Contact Info) Description 07/11/2018 Transcribed Document [facility] Radiology [address] [place] [address] Provider, Layla Acosta MD Social [...] Miscellaneous Notes * Cerner Conversion Note - [facility] Karla ProviderMD - 07/11/2018 7:23 PM EDT Care Management Assessment/Plan Entered On: 07/12/2018 18:02 EDT Performed On: 07/12/2018 18:00 EDT by Jessica Cote, Case Management-Lobster Catcher Care Management Note Care Management Note : pt admitted for tka, pt has her walker, pt has cpm in room, [facility] he past. pt stated she will have assistance at home. referral sent via [employer] Documentation Status Complete : Yes Jessica Cote Case Management-Lobster Catcher - 07/12/2018 18:00 EDT Discharge Planning Details Persons Assisting Patient at Home : Spouse Jessica Cote, Case Management-Lobster Catcher - 07/12/2018 18:00 EDT Info/List/Choices Provided Patient Offered Choice/Affiliations Explained : Yes List/Info Provided Pt/Fam/Support Person : Home health Jessica Cote, Case Management-Lobster Catcher - 07/12/2018 18:00 EDT Final Discharge Disposition Note-CM Discharge To Care Management : Home Health Services (Related/SOC within 3 days)-06 Name of Receiving Facility/Provider-CM : [facility] for cpm Jessica Cote, Case Management-Lobster Catcher - 07/12/2018 18:00 EDT documented in this encounter Plan of Treatment Not on file documented as of this encounter Visit Diagnoses Not on filedocumented in this encounter
--- OUTSIDE RECORDS SUMMARY | 2024-11-22 15:51 | XMS_ITS | Encounter Summary ---
Author Organization [facility] ([place], [place], [place], [place]) Address [address] [place] [address] Care Team Providers Care Cafeteria Or Lunchroom Checker Name Role Phone Unavailable Primary Care Provider Unavailabl e Encounter Details Date Type Department Care Team (Late st Contact Info) Description 07/12/[address] [facility] Radiology [address] [place] [address] Provider, Layla Acosta MD Social [...] Miscellaneous Notes * Cerner Conversion Note - [facility] Karla Rojo MD - 07/12/2018 4:16 PM EDT [facility] [address] , [place] [address] Patient Copy Patient Information: Name: FLOR LUX Current Date: 07/12/2018 15:16:51 : 1945 Patient Address: [place] [address] Patient Attending Physician: FREDERIC ADAMS MD-ORT Primary Care Provider: RODO SANFORD MD-[facility] Primary Care Provider Discharge Diagnosis: Weight on Admission: 175 lb, 0 oz Comment: Follow-up Instructions: With: Address: When: DEYSI MEJIA [address] [facility] [place] [id number] Business (1) 11:15 AM Comments: Appointment has been made Discharge Instructions: Immunizations Documented During Stay: No Immunizations Found Heart Failure Discharge Instructions (if any): Stroke Related Discharge Instructions (if any): Warfarin Related Discharge Instructions (if any): Final Medication List: Other Medications amLODIPine 10 Milligram(s) Oral Every Morning. aspirin (aspirin 81 mg oral delayed release tablet) 1 Tablet(s) Oral Every Day. atorvastatin 40 Milligram(s) Oral Every Morning. cholecalciferol (Vitamin D3) 5,000 International Units Oral Every Day. clopidogrel 75 Milligram(s) Oral Every Day. cyanocobalamin (Vitamin B12) 5,000 Microgram(s) Oral Every Day. gabapentin (gabapentin 300 mg oral capsule) 1 Capsule(s) Oral At Bedtime. glipiZIDE 5 Milligram(s) Oral Two Times A Day. lisinopril 5 Milligram(s) Oral Every Evening. multivitamin Oral Every Day. [facility] OTC. raNITIdine 150 Milligram(s) Oral Every Evening. sertraline 50 Milligram(s) Oral Every Evening. traMADol (traMADol 50 mg oral tablet) 1 Tablet(s) Oral Three Times A Day. Patient Allergies: sulfa drugs; Latex; tetanus toxoid; penicillin Medication Instructions: Take your medications faithfully. Do NOT skip medication. Do NOT stop taking medications without the direction of a physician. Carry a list of your medications with you at all times, and take this medication list with you to your first follow up visit. Report any side effects. Avoid herbal remedies unless discussed with your physician. As part of your treatment plan, your physician may have prescribed a limited course of a controlled substance. This medication may be given to help people with moderate or severe pain or for other medical conditions, but there are risks involved with treatment. Common side effects may include nausea, constipation, drowsiness, sweating, itching, dry mouth, and rash. More serious side effects may include cognitive and motor impairment, like problems with thinking, concentrating, alertness, and movement (e.g. slowed reflexes), and driving and operating heavy machinery can be dangerous. It is important for you to talk to your physician if you have these side effects or questions. These controlled substances can produce physical dependence and be habit-forming if taken for an extended period of time, which means that the body has gotten used to them and may experience withdrawal symptoms if they are abruptly stopped. Withdrawal symptoms can include runny nose, sweating, goose bumps, diarrhea, abdominal cramping, rapid heartbeat, difficulty sleeping, and nervousness. Patient education materials: What to expect after the Procedure: After [...] for 5-7 days until drainage stops ?? Continue 81mg twice a day for 45 days to help prevent blood clots ?? Wear compression stockings on both legs [...] Barley. Bulgur wheat. Millet. Bran muffins. Popcorn. [place] wafer crackers. ?? Vegetables Sweet potatoes. Spinach. Kale. Artichokes. Cabbage. Broccoli. Green peas. Carrots. Squash. ?? Fruits Berries. Pears. Apples. Oranges. Avocados. Prunes and raisins. Dried figs. ?? Meats and Other Protein Sources Traer, kidney, hoff, and soy beans. Split peas. [...] alphonso has 11 g of protein. ?? [place] seeds ??? 1 oz has 5.5 g [...] floor. ?? Place frequently used items in qsrw-xf-pidgs places ?? Keep electrical cables out of [...] ? Using the bathroom. ? Using household shook splicer or toxic chemicals. ? Touching or taking [...] your foot or ankle. ? Increased pain. Medication Leaflets: gabapentin ([place] ba PEN tin) Gralise, Horizant, Neurontin What is the most important information I should know about gabapentin? Some people have thoughts about suicide while taking this medicine. Children taking gabapentin may have behavior changes. Stay alert to changes in your mood or symptoms. Report any new or worsening symptoms to your doctor. Do not stop using gabapentin suddenly, even if you feel fine. What is gabapentin? Gabapentin is an anti-epileptic drug, also called an anticonvulsant. It affects chemicals and nerves in the body that are involved in the cause of seizures and some types of pain. Gabapentin is used in adults to treat nerve pain caused by herpes virus or shingles (herpes zoster). The Horizant brand of gabapentin is also used to treat restless legs syndrome (RLS). The Neurontin brand of gabapentin is also used to treat seizures in adults and children who are at least 3 years old. Use only the brand and form of gabapentin your doctor has prescribed. Check your medicine each time you get a refill to make sure you receive the correct form. Gabapentin may also be used for purposes not listed in this medication guide. What should I discuss with my healthcare provider before taking gabapentin? You should not use gabapentin if you are allergic to it. To make sure gabapentin is safe for you, tell your doctor if you have ever had: ? kidney disease (or if you are on dialysis); ?? diabetes; ?? depression, a mood disorder, or suicidal thoughts or actions; ?? a seizure (unless you take gabapentin to treat seizures); ?? liver disease; ?? heart disease; or ?? (for patients with RLS) if you are a day sleeper or work a juice packaging machines setter. Some people have thoughts about suicide while taking this medicine. Your doctor should check your progress at regular visits. Your family or other caregivers should also be alert to changes in your mood or symptoms. It is not known whether this medicine will harm an unborn baby. Tell your doctor if you are or plan to become . Seizure control is very important during , and having a seizure could harm both mother and baby. Do not start or stop taking gabapentin for seizures without your doctor's advice, and tell your doctor right away if you become . Gabapentin can pass into breast milk, but effects on the nursing baby are not known. Tell your doctor if you are breast-feeding. How should I take gabapentin? Follow all directions on your prescription label. Do not take this medicine in larger or smaller amounts or for longer than recommended. The Horizant brand of gabapentin should not be taken during the day. For best results, take Horizant with food at about 5:00 in the evening. Both Gralise and Horizant should be taken with food. Neurontin can be taken with or without food. If you break a Neurontin tablet and take only half of it, take the other half at your next dose. Any tablet that has been broken should be used as soon as possible or within a few days. Do not crush, chew, or break an extended-release tablet. Swallow it whole. Measure liquid medicine with the dosing syringe provided, or with a special dose-measuring spoon or medicine cup. If you do not have a dose-measuring device, ask your pharmacist for one. If your doctor changes your brand, strength, or type of gabapentin, your dosage needs may change. Ask your pharmacist if you have any questions about the new kind of gabapentin you receive at the pharmacy. Do not stop using gabapentin suddenly, even if you feel fine. Stopping suddenly may cause increased seizures. Follow your doctor's instructions about tapering your dose. Wear a medical alert tag or carry an ID card stating that you have seizures. Any medical care provider who treats you should know that you take seizure medication. This medicine can cause unusual results with certain medical tests. Tell any doctor who treats you that you are using gabapentin. Store gabapentin tablets and capsules at room temperature away from light and moisture. Store the liquid medicine in the refrigerator. Do not freeze. What happens if I miss a dose? Take the missed dose as soon as you remember. Be sure to take the medicine with food. Skip the missed dose if it is almost time for your next scheduled dose. Do not take extra medicine to make up the missed dose. What happens if I overdose? Seek emergency medical attention or call the Poison Help line at . What should I avoid while taking gabapentin? This medicine may impair your thinking or reactions. Be careful if you drive or do anything that requires you to be alert. Avoid taking an antacid within 2 hours before or after you take gabapentin. Antacids can make it harder for your body to absorb gabapentin. Drinking alcohol with this medicine can cause side effects. What are the possible side effects of gabapentin? Get emergency medical help if you have signs of an allergic reaction: hives; difficult breathing; swelling of your face, lips, tongue, or throat. Seek medical treatment if you have a serious drug reaction that can affect many parts of your body. Symptoms may include: skin rash, fever, swollen glands, flu-like symptoms, muscle aches, severe weakness, unusual bruising, or yellowing of your skin or eyes. This reaction may occur several weeks after you began using gabapentin. Report any new or worsening symptoms to your doctor, such as: mood or behavior changes, anxiety, panic attacks, trouble sleeping, or if you feel impulsive, irritable, agitated, hostile, aggressive, restless, hyperactive (mentally or physically), depressed, or have thoughts about suicide or hurting yourself. Call your doctor at once if you have: ? increased seizures; ?? severe weakness or tiredness; ?? problems with balance or muscle movement; ?? upper stomach pain; ?? chest pain, new or worsening cough with fever, trouble breathing; ?? severe tingling or numbness; ?? rapid eye movement; or ?? kidney problems--little or no urination, painful or difficult urination, swelling in your feet or ankles. Some side effects are more likely in children taking gabapentin. Contact your doctor if the child taking this medicine has any of the following side effects: ? changes in behavior; ?? memory problems; ?? trouble concentrating; or ?? acting restless, hostile, or aggressive. Common side effects may include: ? headache, dizziness, drowsiness, tiredness; ?? swelling in your hands or feet; ?? problems with your eyes; ?? coordination problems; or ?? (in children) fever, nausea, vomiting. This is not a complete list of side effects and others may occur. Call your doctor for medical advice about side effects. You may report side effects to FDA at 3-833-DKS-5638. What other drugs will affect gabapentin? Taking gabapentin with other drugs that make you sleepy can worsen this effect. Ask your doctor before taking a sleeping pill, narcotic medication, muscle relaxer, or medicine for anxiety, depression, or seizures. Other drugs may interact with gabapentin, including prescription and gctk-klx-duaxsni medicines, vitamins, and herbal products. Tell your doctor about all your current medicines and any medicine you start or stop using. Where can I get more information? Your pharmacist can provide more information about gabapentin. Remember, keep this and all other medicines out of the reach of children, never share your medicines with others, and use this medication only for the indication prescribed. Every effort has been made to ensure that the information provided by [employer]. [employer]') is accurate, up-to-date, and complete, but no guarantee is made to that effect. Drug information contained herein may be time sensitive. [employer] information has been compiled for use by healthcare practitioners and consumers in the [place] and therefore [employer] does not warrant that uses outside of the [place] are appropriate, unless specifically indicated otherwise. [employer] drug information does not endorse drugs, diagnose patients or recommend therapy. [employer] drug information is an informational resource designed to assist licensed healthcare practitioners in caring for their patients and/or to serve consumers viewing this service as a supplement to, and not a substitute for, the expertise, skill, knowledge and judgment of healthcare practitioners. The absence of a warning for a given drug or drug combination in no way should be construed to indicate that the drug or drug combination is safe, effective or appropriate for any given patient. [employer] does not assume any responsibility for any aspect of healthcare administered with the aid of information [employer] provides. The information contained herein is not intended to cover all possible uses, directions, precautions, warnings, drug interactions, allergic reactions, or adverse effects. If you have questions about the drugs you are taking, check with your doctor, nurse or pharmacist. Copyright 8215-6304 [employer]. Version: 14.01. Revision Date: 02/08/2017. oxycodone (ox i KOE done) Oxaydo, OxyCONTIN, Oxyfast, Roxicodone, Xtampza ER What is the most important information I should know about oxycodone? MISUSE OF OPIOID MEDICINE CAN CAUSE ADDICTION, OVERDOSE, OR . Keep the medication in a place where others cannot get to it. Taking opioid medicine during may cause life-threatening withdrawal symptoms in the . Fatal side effects can occur if you use opioid medicine with alcohol, or with other drugs that cause drowsiness or slow your breathing. What is oxycodone? Oxycodone is an opioid pain medication used to treat moderate to severe pain. The extended-release form of oxycodone is for rojktl-rxr-ldevw treatment of pain and should not be used on an as-needed basis for pain. Oxycodone may also be used for purposes not listed in this medication guide. What should I discuss with my healthcare provider before using oxycodone? You should not use oxycodone if you are allergic to it, or if you have: ? severe asthma or breathing problems; or ?? a blockage in your stomach or intestines. You should not use oxycodone unless you are already using a similar opioid medicine and are tolerant to it. Most brands of oxycodone are not approved for use in people under 18. OxyContin should not be given to a child younger than 11 years old. Tell your doctor if you have ever had: ? a head injury, or seizures; ?? drug or alcohol addiction, or mental illness; ?? liver or kidney disease; ?? urination problems; or ?? problems with your gallbladder, pancreas, or thyroid. If you use opioid medicine while you are , your baby could become dependent on the drug. This can cause life-threatening withdrawal symptoms in the baby after it is born. Babies born dependent on opioids may need medical treatment for several weeks. Do not breast-feed. Oxycodone can pass into breast milk and may cause drowsiness, breathing problems, or in a nursing baby. How should I use oxycodone? Follow the directions on your prescription label and read all medication guides. Never use oxycodone in larger amounts, or for longer than prescribed. Tell your doctor if you feel an increased urge to take more of this medicine. Never share opioid medicine with another person, especially someone with a history of drug abuse or addiction. MISUSE CAN CAUSE ADDICTION, OVERDOSE, OR . Keep the medication in a place where others cannot get to it. Selling or giving away opioid medicine is against the law. Stop taking all other jqxhdj-ikp-vtmfn narcotic pain medicines when you start taking extended-release oxycodone. Take oxycodone with food. Swallow the capsule or tablet whole to avoid exposure to a potentially fatal overdose. Do not crush, chew, break, open, or dissolve. Never crush or break an oxycodone pill to inhale the powder or mix it into a liquid to inject the drug into your vein. This can cause in . Measure liquid medicine carefully. Use the dosing syringe provided, or use a medicine dose-measuring device (not a kitchen spoon). You should not stop using oxycodone suddenly. Follow your doctor's instructions about tapering your dose. Store at room temperature, away from heat, moisture, and light. Keep track of your medicine. Oxycodone is a drug of abuse and you should be aware if anyone is using your medicine improperly or without a prescription. Do not keep leftover opioid medication. Just one dose can cause in someone using this medicine accidentally or improperly. Ask your pharmacist where to locate a drug take-back disposal program. If there is no take-back program, flush the unused medicine down the toilet. What happens if I miss a dose? Since oxycodone is used for pain, you are not likely to miss a dose. Skip any missed dose if it is almost time for your next dose. Do not use two doses at one time. What happens if I overdose? Seek emergency medical attention or call the Poison Help line at . An oxycodone overdose can be fatal, especially in a child or other person using the medicine without a prescription. Overdose can cause severe muscle weakness, pinpoint pupils, very slow breathing, extreme drowsiness, or coma. What should I avoid while using oxycodone? Do not drink alcohol. Dangerous side effects or could occur. Avoid driving or operating machinery until you know how oxycodone will affect you. Dizziness or severe drowsiness can cause falls or other accidents. Avoid medication errors. Always check the brand and strength of oxycodone you get from the pharmacy. What are the possible side effects of oxycodone? Get emergency medical help if you have signs of an allergic reaction: hives; difficult breathing; swelling of your face, lips, tongue, or throat. Opioid medicine can slow or stop your breathing, and may occur. A person caring for you should seek emergency medical attention if you have slow breathing with long pauses, blue colored lips, or if you are hard to wake up. Call your doctor at once if you have: ? noisy breathing, sighing, shallow breathing; ?? a slow heart rate or weak pulse; ?? a light-headed feeling, like you might pass out; ?? confusion, unusual thoughts or behavior; ?? seizure (convulsions); or ?? low cortisol levels-- nausea, vomiting, loss of appetite, dizziness, worsening tiredness or weakness. Seek medical attention right away if you have symptoms of serotonin syndrome, such as: agitation, confusion, fever, sweating, fast heart rate, chest pain, feeling short of breath, muscle stiffness, trouble walking, or feeling faint. Serious side effects may be more likely in older adults and those who are malnourished or debilitated. Long-term use of opioid medication may affect fertility (ability to have children) in men or women. It is not known whether opioid effects on fertility are permanent. Common side effects may include: ? drowsiness, headache, dizziness, tiredness; or ?? constipation, stomach pain, nausea, vomiting. This is not a complete list of side effects and others may occur. Call your doctor for medical advice about side effects. You may report side effects to FDA at 0-318-TLC-9038. What other drugs will affect oxycodone? You may have breathing problems or withdrawal symptoms if you start or stop taking certain other medicines. Tell your doctor if you also use an antibiotic, antifungal medication, heart or blood pressure medication, seizure medication, or medicine to treat HIV or hepatitis C. Opioid medication can interact with many other drugs and cause dangerous side effects or . Be sure your doctor knows if you also use: ? cold or allergy medicines, bronchodilator asthma/COPD medication, or a diuretic ('water pill'); ?? medicines for motion sickness, irritable bowel syndrome, or overactive bladder; ?? other narcotic medications--opioid pain medicine or prescription cough medicine; ?? a sedative like Valium--diazepam, alprazolam, lorazepam, Xanax, Klonopin, Versed, and others; ?? drugs that make you sleepy or slow your breathing--a sleeping pill, muscle relaxer, medicine to treat mood disorders or mental illness; or ?? drugs that affect serotonin levels in your body--a stimulant, or medicine for depression, Parkinson's disease, migraine headaches, serious infections, or nausea and vomiting. This list is not complete and many other drugs may affect oxycodone. This includes prescription and earv-tlg-kdgfifc medicines, vitamins, and herbal products. Not all possible drug interactions are listed here. Where can I get more information? Your pharmacist can provide more information about oxycodone. Remember, keep this and all other medicines out of the reach of children, never share your medicines with others, and use this medication only for the indication prescribed. Every effort has been made to ensure that the information provided by [employer] is accurate, up-to-date, and complete, but no guarantee is made to that effect. Drug information contained herein may be time sensitive. [employer] information has been compiled for use by healthcare practitioners and consumers in the [place] and therefore [employer] does not warrant that uses outside of the [place] are appropriate, unless specifically indicated otherwise. [employer] drug information does not endorse drugs, diagnose patients or recommend therapy. [employer] drug information is an informational resource designed to assist licensed healthcare practitioners in caring for their patients and/or to serve consumers viewing this service as a supplement to, and not a substitute for, the expertise, skill, knowledge and judgment of healthcare practitioners. The absence of a warning for a given drug or drug combination in no way should be construed to indicate that the drug or drug combination is safe, effective or appropriate for any given patient. [employer] does not assume any responsibility for any aspect of healthcare administered with the aid of information [employer] provides. The information contained herein is not intended to cover all possible uses, directions, precautions, warnings, drug interactions, allergic reactions, or adverse effects. If you have questions about the drugs you are taking, check with your doctor, nurse or pharmacist. Copyright 9179-5273 [employer]. Version: 13.02. Revision Date: 03/29/2018. tramadol (TRAM a dol) ConZip, Ultram, Ultram ER What is the most important information I should know about tramadol? MISUSE OF THIS MEDICINE CAN CAUSE ADDICTION, OVERDOSE, OR . Keep the medication in a place where others cannot get to it. Tramadol should not be given to a child younger than 12 years old. Ultram ER should not be given to anyone younger than 18 years old. Taking tramadol during may cause life-threatening withdrawal symptoms in the . Fatal side effects can occur if you use tramadol with alcohol, or with other drugs that cause drowsiness or slow your breathing. What is tramadol? Tramadol is an pain medicine similar to an opioid (sometimes called, a narcotic). Tramadol is used to treat moderate to severe pain. The extended-release form of this medicine is for shniac-els-lvysg treatment of pain. This form of tramadol is not for use on an as-needed basis for pain. Tramadol may also be used for purposes not listed in this medication guide. What should I discuss with my healthcare provider before taking tramadol? You should not take tramadol if you are allergic to it, or if you have: ? severe asthma or breathing problems; ?? a blockage in your stomach or intestines; ?? if you have recently used alcohol, sedatives, tranquilizers, or narcotic medications; or ?? if you have used an MAO inhibitor in the past 14 days (such as isocarboxazid, linezolid, methylene blue injection, phenelzine, rasagiline, selegiline, or tranylcypromine). Tramadol should not be given to a child younger than 12 years old. Ultram ER should not be given to anyone younger than 18 years old. Do not give tramadol to anyone younger than 18 years old who recently had surgery to remove the tonsils or adenoids. Seizures have occurred in some people taking tramadol. Talk with your doctor about your seizure risk, which may be higher if you have ever had: ? a head injury, epilepsy or other seizure disorder; ?? drug or alcohol addiction; or ?? a metabolic disorder. Tell your doctor if you have ever had: ? liver or kidney disease; ?? a stomach disorder; or ?? mental illness, or suicide attempt. If you use tramadol while you are , your baby could become dependent on the drug. This can cause life-threatening withdrawal symptoms in the baby after it is born. Babies born dependent on habit-forming medicine may need medical treatment for several weeks. Do not breast-feed. Tramadol can pass into breast milk and cause drowsiness, breathing problems, or in a nursing baby. How should I take tramadol? Follow the directions on your prescription label and read all medication guides. Never use tramadol in larger amounts, or for longer than prescribed. Tell your doctor if you feel an increased urge to take more of this medicine. Never share this medicine with another person, especially someone with a history of drug abuse or addiction. MISUSE CAN CAUSE ADDICTION, OVERDOSE, OR . Keep the medicine in a place where others cannot get to it. Selling or giving away tramadol is against the law. Stop taking all other rvzkhl-cdq-tcedm narcotic pain medications when you start taking tramadol. Tramadol can be taken with or without food, but take it the same way each time. Swallow the capsule or tablet whole to avoid exposure to a potentially fatal overdose. Do not crush, chew, break, open, or dissolve. Never crush or break a tramadol pill to inhale the powder or mix it into a liquid to inject the drug into your vein. This practice has resulted in . Do not stop using tramadol suddenly, or you could have unpleasant withdrawal symptoms. Ask your doctor how to safely stop using tramadol. Store at room temperature away from moisture and heat. Keep track of your medicine. You should be aware if anyone is using it improperly or without a prescription. Do not keep leftover opioid medication. Just one dose can cause in someone using this medicine accidentally or improperly. Ask your pharmacist where to locate a drug take-back disposal program. If there is no take-back program, flush the unused medicine down the toilet. What happens if I miss a dose? Since tramadol is used for pain, you are not likely to miss a dose. Skip any missed dose if it is almost time for your next dose. Do not use two doses at one time. What happens if I overdose? Seek emergency medical attention or call the Poison Help line at . A tramadol overdose can be fatal, especially in a child or other person using the medicine without a prescription. Overdose symptoms may include slow heart rate, severe drowsiness, cold and clammy skin, very slow breathing, or coma. What should I avoid while taking tramadol? Do not drink alcohol. Dangerous side effects or could occur. Avoid driving or hazardous activity until you know how this medicine will affect you. Dizziness or drowsiness can cause falls, accidents, or severe injuries. What are the possible side effects of tramadol? Get emergency medical help if you have signs of an allergic reaction (hives, difficult breathing, swelling in your face or throat) or a severe skin reaction (fever, sore throat, burning in your eyes, skin pain, red or purple skin rash that spreads and causes blistering and peeling). This medicine can slow or stop your breathing, and may occur. A person caring for you should seek emergency medical attention if you have slow breathing with long pauses, blue colored lips, or if you are hard to wake up. Call your doctor at once if you have: ? noisy breathing, sighing, shallow breathing; ?? a slow heart rate or weak pulse; ?? a light-headed feeling, like you might pass out; ?? seizure (convulsions); or ?? low cortisol levels--nausea, vomiting, loss of appetite, dizziness, worsening tiredness or weakness. Seek medical attention right away if you have symptoms of serotonin syndrome, such as: agitation, hallucinations, fever, sweating, shivering, fast heart rate, muscle stiffness, twitching, loss of coordination, nausea, vomiting, or diarrhea. Serious side effects may be more likely in older adults and those who are overweight, malnourished, or debilitated. Long-term use of opioid medication may affect fertility (ability to have children) in men or women. It is not known whether opioid effects on fertility are permanent. Common side effects may include: ? dizziness, drowsiness; ?? headache; or ?? constipation, nausea, vomiting, stomach pain. This is not a complete list of side effects and others may occur. Call your doctor for medical advice about side effects. You may report side effects to FDA at 7-550-VHO-7293. What other drugs will affect tramadol? You may have breathing problems or withdrawal symptoms if you start or stop taking certain other medicines. Tell your doctor if you also use an antibiotic, antifungal medication, heart or blood pressure medication, seizure medication, or medicine to treat HIV or hepatitis C. Opioid medication can interact with many other drugs and cause dangerous side effects or . Be sure your doctor knows if you also use: ? cold or allergy medicines, bronchodilator asthma/COPD medication, or a diuretic ('water pill'); ?? medicines for motion sickness, irritable bowel syndrome, or overactive bladder; ?? other narcotic medications--opioid pain medicine or prescription cough medicine; ?? a sedative like Valium--diazepam, alprazolam, lorazepam, Xanax, Klonopin, Versed, and others; ?? drugs that make you sleepy or slow your breathing--a sleeping pill, muscle relaxer, medicine to treat mood disorders or mental illness; or ?? drugs that affect serotonin levels in your body--a stimulant, or medicine for depression, Parkinson's disease, migraine headaches, serious infections, or nausea and vomiting. This list is not complete and many other drugs may affect tramadol. This includes prescription and tvsr-yfy-eqdntxm medicines, vitamins, and herbal products. Not all possible drug interactions are listed here. Where can I get more information? Your doctor or pharmacist can provide more information about tramadol. Remember, keep this and all other medicines out of the reach of children, never share your medicines with others, and use this medication only for the indication prescribed. Every effort has been made to ensure that the information provided by [employer]') is accurate, up-to-date, and complete, but no guarantee is made to that effect. Drug information contained herein may be time sensitive. [employer] information has been compiled for use by healthcare practitioners and consumers in the [place] and therefore [employer] does not warrant that uses outside of the [place] are appropriate, unless specifically indicated otherwise. [employer] drug information does not endorse drugs, diagnose patients or recommend therapy. [employer] drug information is an informational resource designed to assist licensed healthcare practitioners in caring for their patients and/or to serve consumers viewing this service as a supplement to, and not a substitute for, the expertise, skill, knowledge and judgment of healthcare practitioners. The absence of a warning for a given drug or drug combination in no way should be construed to indicate that the drug or drug combination is safe, effective or appropriate for any given patient. [facility] does not assume any responsibility for any aspect of healthcare administered with the aid of information [facility] provides. The information contained herein is not intended to cover all possible uses, directions, precautions, warnings, drug interactions, allergic reactions, or adverse effects. If you have questions about the drugs you are taking, check with your doctor, nurse or pharmacist. Copyright 3760-8551 [facility] [employer]. Version: 18.02. Revision Date: 03/29/2018. CIGARETTE SMOKING: The facts are clear, cigarette smoking will shorten your life. Smoking can cause many illnesses along the way. As a healthcare provider, we recommend that you stop smoking. Assistance with quitting is available by contacting 3-713-JAQR-NOW. This is a free resource providing counseling, support, and referral. Or you may contact your personal physician. 4 WAYS TO GET AHEAD OF SEPSIS SEPSIS is a MEDICAL EMERGENCY. Time matters! Infections put you and your family at risk for a life-threatening condition called sepsis. Sepsis is the body???s extreme response to an infection. It is life-threatening, and without timely treatment, sepsis can rapidly lead to tissue damage, organ failure, and . Sepsis happens when an infection you already have???in your skin, lungs, urinary tract or somewhere else???triggers a chain reaction throughout your body. 1 PREVENT INFECTIONS Take good care of chronic conditions. Talk to your doctor about getting the recommended vaccines. 2 PRACTICE GOOD HYGIENE Wash your hands frequently. Keep cuts or open sores clean and covered until they are healed. 3 KNOW THE SYMPTOMS Confusion or disorientation Shortness of breath High heart rate Fever, shivering, or feeling very cold Extreme pain or discomfort Clammy or sweaty skin 4 ACT FAST Get medical care IMMEDIATELY if you suspect sepsis or if you have an infection that???s not getting better or is getting worse. To learn more about sepsis and how to prevent infections, visit www.cdc.gov/sepsis. STROKE is an EMERGENCY [employer] ACT F.A.S.T! FACE ?? Facial droop ?? Uneven smile ARM ?? Arm numbness ?? Arm weakness SPEECH ?? Slurred speech ?? Difficulty speaking or understanding TIME ?? Call 911 and get to the hospital immediately Have the ambulance go to the nearest stroke center. STROKE Risk Factors High blood pressure High cholesterol Heart Disease Diabetes Smoking Heavy alcohol use Physical inactivity and obesity Atrial Fibrillation (irregular heartbeat) Family history of stroke Reminder: Be sure to sign up for the My [employer] patient portal, which gives you 22/11 access to your medical information ??? including these discharge instructions ??? using your computer, smartphone, or tablet. Just go to [employer] to get started. Questions? Call . [facility] would like to thank you for allowing us to assist you with your healthcare needs. MACI Benjamin RITA MOR, (or customer contact representative) have received the above patient education materials/instructions and have verbalized understanding: Patient Signature _ Date/Time Patient Sweet Pickled Fruit Maker Signature (if needed) Date/Time Clinician/Hospital Sweet Pickled Fruit Maker Signature (if needed) Date/Time documented in this encounter Plan of Treatment Not on file documented as of this encounter Visit Diagnoses Not on filedocumented in this encounter
--- OUTSIDE RECORDS SUMMARY | 2024-11-22 15:51 | XMS_ITS | Encounter Summary ---
Author Organization [employer] ([place], [place], [place], [place]) Address [address] [place] [address] Care Team Providers Care Wax Room Supervisor Name Role Phone Unavailable Primary Care Provider Unavailabl e Encounter Details Date Type Department Care Team (Late st Contact Info) Description 07/13/2018 Transcribed Document [facility] Radiology [address] [place] [address] Provider, Layla Acosta MD Social [...] Note - Layla Rojo MD - 07/13/2018 11:40 AM EDT DATE OF ADMISSION: 07/12/2018 DATE OF DISCHARGE: 07/13/2018 DISCHARGE DIAGNOSES: 1. Status post right knee replacement. 2. Acute renal failure. 3. Chronic kidney disease. 4. Anxiety. 5. History of tobacco abuse. 6. Diabetes mellitus. 7. Obesity. 8. Hypertension. 9. Hyperlipidemia. DISCHARGE INSTRUCTIONS: Diet: According to [place] [employer]. ACTIVITIES: As tolerated and as per Physical Therapy recommendation. FOLLOWUP: Followup appointment with primary care physician in three to four days. Followup appointment with Ortho in one to two weeks. DISPOSITION: Home. DISCHARGE MEDICATIONS: 1. Vitamin D3 5000 units daily. 2. Vitamin B12 daily. 3. Zantac 150 mg daily. 4. Norvasc 10 mg daily. 5. Aspirin 81 mg daily. 6. Lipitor 40 mg daily. 7. Plavix 75 mg daily. 8. Gabapentin 300 mg daily. 9. Glipizide 5 mg twice daily. 10. Multivitamin daily. 11. Oxycodone 5 mg q.4 h. as needed. 12. Sertraline 50 mg daily. 13. Tramadol 50 mg 3 times daily as needed. HISTORY AND HOSPITAL COURSE: This is a 72-year-old female, admitted to the hospital for knee replacement. 1. Status post right knee replacement. Patient had surgery done. Pain is controlled. Started physical therapy. She will be discharged home today to follow up with Ortho and Physical Therapy. 2. Acute renal failure. Patient with history of chronic kidney disease. Creatinine stable and CASH inhibitor on hold for now. I think she will go back to her felt cementer. 3. Diabetes mellitus. Resume home medication. 4. History of tobacco use. Recommend patient to quit. 5. Hypertension. Continue medication as mentioned. 6. Weakness. Patient will start physical therapy and will be discharged home with physical therapy. All other medical problems, medications to be continued as mentioned above. For Ortho discharge instruction, please go back to discharge summary dictated by Tyler Jimenez on 07/10/2018. Patient is medically stable, will be discharged home today to follow up as outpatient. Plan discussed with patient. Chart was reviewed. TIME SPENT: 40 minutes. Clara Gudino M.D. Dict: 07/13/2018 10:40:29 Trans: 07/14/2018 01:19:52 CC1: Clara Gudino M.D. documented in this encounter Plan of Treatment Not on file documented as of this encounter Visit Diagnoses Not on filedocumented in this encounter
--- OUTSIDE RECORDS SUMMARY | 2024-11-22 15:51 | XMS_ITS | Encounter Summary ---
Author Organization [employer] ([place], [place], [place], [place]) Address [address] [place] [address] Care Team Providers Care Shelf Filler Name Role Phone Unavailable Primary Care Provider Unavailabl e Encounter Details Date Type Department Care Team (Late st Contact Info) Description 07/12/2018 Transcribed Document [facility] Radiology [address] [place] [address] Provider, Layla Acosta MD Social [...] Note - Layla Rojo MD - 07/12/2018 12:00 PM EDT Pain Assessment Entered On: 07/12/2018 13:02 EDT Performed On: 07/12/2018 12:53 EDT by Gaby Loera RN Intervention Information: acetaminophen Performed by Gaby Loera RN on 07/12/2018 11:53:00 EDT acetaminophen,1000mg Oral Pain Assessment Pain Assessment : Follow-up assessment Pain Scale Goal : 0 Pain Scale Used : 0-10 Scale Location : Knee, right Onset : Gradual Pain Radiation : No Pain Improved by : Medication Gaby Loera RN - 07/12/2018 13:01 EDT Pain Scale Intensity : 2 Gaby Loera RN - 07/12/2018 13:01 EDT Image 4 - Images currently included in the form version of this document have not been included in the text rendition version of the form. documented in this encounter Plan of Treatment Not on file documented as of this encounter Visit Diagnoses Not on filedocumented in this encounter
--- OUTSIDE RECORDS SUMMARY | 2024-11-22 15:51 | XMS_ITS | Encounter Summary ---
Author Organization [employer] ([place], [place], [place], [place]) Address [address] [place] [address] Care Team Providers Care Cupola Hoist Operator Name Role Phone Unavailable Primary Care Provider Unavailabl e Encounter Details Date Type Department Care Team (Late st Contact Info) Description 07/12/2018 Transcribed Document [facility] Radiology [address] [place] [address] Provider, Layla Acosta MD Social [...] Note - Layla Rojo MD - 07/12/2018 12:38 PM EDT Patient: JOAN LUX Age: 72 years Sex: Female : 1945 Associated Diagnoses: None Author: DEBORA HUNTER MD-NEP Subjective Objective VS/Measurements Vitals Signs (last 24 hrs) Last Charted Minimum Maximum Temp 97.8 (JUL 12 06:28) 97.8 (JUL 12 06:28) 98.3 (JUL 11 16:03) Mon HR 81 (JUL 12 06:28) 78 (JUL 11 13:55) 96 (JUL 12 02:54) Resp Rate 16 (JUL 12 06:28) 16 (JUL 11 13:55) H 32 (JUL 11 18:00) SBP H 144 (JUL 12 06:28) 102 (JUL 11 16:03) H 144 (JUL 12 06:28) DBP L 57 (JUL 12 06:28) L 37 (JUL 11 23:31) 74 (JUL 12 02:54) MAP 78 (JUL 12 06:28) 49 (JUL 11 16:10) 95 (JUL 11 17:05) SpO2 96 (JUL 12 06:28) L 91 (JUL 12 02:54) 99 (JUL 11 16:03) Intake & Output Totals Last 24 Hours (7a-7a) Intake (6 Events) Medications (50 mL) Oral Intake (170 mL) Surgical Services Intake (2000 mL) Output (4 Events) Surgical Drain/Tube Output: (25 mL) Urine Voided (Volume) (1450 mL) Input Total: 2220 mL Output Total: 1475 mL Balance: 745 mL Results Review Labs (Last four charted values) HB L 9.5 (JUL 12) L 10.1 (JUL 11) HCT L 30.0 (JUL 12) L 30.6 (JUL 11) Na L 133 (JUL 12) 136 (JUL 11) 138 (JUN 30) K H 5.7 (JUL 12) H 5.3 (JUL 11) 4.6 (JUN 30) Cl 104 (JUL 12) 107 (JUL 11) 111 (JUN 30) CO2 21 (JUL 12) 21 (JUL 11) 22 (JUN 30) BUN H 31 (JUL 12) H 28 (JUL 11) H 30 (JUN 30) Cr H 2.74 (JUL 12) H 2.31 (JUL 11) H 2.43 (JUN 30) Glu R H 366 (JUL 12) H 249 (JUL 11) H 216 (JUN 30) Ca L 8.2 (JUL 12) L 8.4 (JUL 11) 8.6 (JUN 30) Impression and Plan ARF: Cr trending up post op. Good UOP. . ACEI held yesterday. no recent NSAIDs or contrast. No diuretics. Getting IVF. BP borderline low yesterday. Will get urine labs and monitor for recovery. CKD4: Balseine cr 1.9-2.2 per chart. follows with nephrology HTN: BP was low yesterday. back up a little today. cont to hold ACEI. Hyperkalemia: Low K diet. kayexalate PRN for K > 5.7. ACEI held. S/P right TKA. High risk and complex pt #[id number] documented in this encounter Plan of Treatment Not on file documented as of this encounter Visit Diagnoses Not on filedocumented in this encounter
--- OUTSIDE RECORDS SUMMARY | 2024-11-22 15:51 | XMS_ITS | Encounter Summary ---
Author Organization [employer] ([place], [place], [place], [place]) Address [address] [place] [address] Care Team Providers Care Bankruptcy Manager Name Role Phone Unavailable Primary Care Provider Unavailabl e Encounter Details Date Type Department Care Team (Late st Contact Info) Description 07/12/2018 Transcribed Document [facility] Radiology [address] [place] [address] Provider, Layla Acosta MD Social [...] Note - Layla Rojo MD - 07/12/2018 4:00 AM EDT Pain Assessment Entered On: 07/12/2018 4:42 EDT Performed On: 07/12/2018 3:49 EDT by Trudi Mao RN Intervention Information: acetaminophen Performed by Trudi Mao RN on 07/12/2018 02:49:00 EDT acetaminophen,1000mg Oral Pain Assessment Pain Assessment : Follow-up assessment Pain Scale Goal : 0 Pain Scale Used : FACES Pain Intervention, Drug : Medicated Pain Improved by Intervention : Yes Trudi Mao RN - 07/12/2018 4:42 EDT Pain Scale Intensity : 1 Trudi Mao RN - 07/12/2018 4:42 EDT Image 4 - Images currently included in the form version of this document have not been included in the text rendition version of the form. documented in this encounter Plan of Treatment Not on file documented as of this encounter Visit Diagnoses Not on filedocumented in this encounter
--- OUTSIDE RECORDS SUMMARY | 2024-11-22 15:51 | XMS_ITS | Encounter Summary ---
Author Organization [employer] ([place], [place], [place], [place]) Address [address] [place] [address] Care Team Providers Care African Studies Professor Name Role Phone Unavailable Primary Care Provider Unavailabl e Encounter Details Date Type Department Care Team (Late st Contact Info) Description 07/13/2018 Transcribed Document [facility] Radiology [address] [place] [address] Provider, Layla Acosta MD Social [...] Miscellaneous Notes * Cerner Conversion Note - [facility] Karla Rojo MD - 07/13/2018 4:00 AM EDT Pain Assessment Entered On: 07/13/2018 4:53 EDT Performed On: 07/13/2018 4:12 EDT by Kieran Spivey RN Intervention Information: acetaminophen Performed by Kieran Spivey RN on 07/13/2018 03:12:00 EDT acetaminophen,1000mg Oral Pain Assessment Pain Assessment : Follow-up assessment Pain Scale Goal : 3 Pain Intervention, Drug : Medicated Pain Improved by Intervention : Yes Kieran Spivey RN - 07/13/2018 4:53 EDT documented in this encounter Plan of Treatment Not on file documented as of this encounter Visit Diagnoses Not on filedocumented in this encounter
--- OUTSIDE RECORDS SUMMARY | 2024-11-22 15:51 | XMS_ITS | Encounter Summary ---
Author Organization [employer] ([place], [place], [place], [place]) Address [address] [place] [address] Care Team Providers Care Dental Surgeon Name Role Phone Unavailable Primary Care Provider Unavailabl e Encounter Details Date Type Department Care Team (Late st Contact Info) Description 07/12/2018 Transcribed Document [facility] Radiology [address] [place] [address] Provider, Layla Acosta MD Social [...] Conversion Note - meryl Rojo MD - 07/12/2018 8:04 AM EDT Patient: JOAN LUX Age: 72 Years Sex: Female : 1945 Subjective Patient's pain well controlled Review of Systems Denies Headache, Blurred Vision Denies Chest Pain, Heart Palpitations Denies N/V Urinating without complication Denies Numbness/Tingling of the extremities Objective Vitals & Measurements T: 36.6 ??C TMIN: 36.2 ??C TMAX: 36.8 ??C HR: 81(Monitored) RR: 16 BP: 144/57 SpO2: 96% HT: 152.4 cm WT: 73.09 kg BMI: 31.5 Physical Exam Dressing c/d/i Mild knee swelling noted SILT throughout the extremity including 1st and 4th webspace TA,GAS,QUAD firing Knee flexion 110*, Knee extension 0* Palpable Pulses for DP/PT Compartments of the leg soft/compressible Lab Results CBC Results (Current Encounter/Past 24 Hours) Hct 30.0 % LOW 07/12/2018 05:00 Hgb 9.5 Gram/dL LOW 07/12/2018 05:00 CMP Results (Current Encounter/Past 24 Hours) eGFR NonAfrican 17 mL/min/1.73m2 LOW 07/12/2018 05:06 Creatinine Level 2.74 mg/dL LA 07/12/2018 05:06 eGFR 21 mL/min/1.73m2 LOW 07/12/2018 05:06 Bun/Creatinine 11.3 07/12/2018 05:06 Sodium Level 133 mmol/L LOW 07/12/2018 05:06 Potassium Level 5.7 mmol/L LA 07/12/2018 05:06 Chloride Level 104 mmol/L 07/12/2018 05:06 Carbon Dioxide Level 21 mmol/L 07/12/2018 05:06 Anion Gap 14 07/12/2018 05:06 Blood Urea Nitrogen 31 mg/dL LA 07/12/2018 05:06 Glucose Level 366 mg/dL LA 07/12/2018 05:06 Calcium Level 8.2 mg/dL LOW 07/12/2018 05:06 Coagulation Results (Current Encounter/Past 24 Hours) No Coagulation Results Found (Past 24 Hours) Assessment/Plan POD #1 s/p Right TKA--Patient's pain is well controlled. Pull drain today. Patient is participating in post operative therapy diligently. Knee flexion/extension progressing well. [address] patients affected heel, padded, onto bucket, 1 foot above hip to encourage knee extension for 30 minutes. Prone hangs BID with 5# weight. Keep dressing clean, dry and intact. Significan increase in Creatinine from baseline. Patient has CRI w baseline 1.9 per nephrology. Will hold d/c today for further observation. Electronically signed by Layla Kang Conversion Supervisor Pairing And Inspecting Cerner at 09/22/2022 11:00 AM CDT documented in this encounter Plan of Treatment Not on file documented as of this encounter Visit Diagnoses Not on filedocumented in this encounter
--- OUTSIDE RECORDS SUMMARY | 2024-11-22 15:51 | XMS_ITS | Encounter Summary ---
Author Organization [employer] ([place], [place], [place], [place]) Address [address] [place] [address] Care Team Providers Care Papeterie Table Assembler Name Role Phone Unavailable Primary Care Provider Unavailabl e Encounter Details Date Type Department Care Team (Late st Contact Info) Description 07/12/2018 Transcribed Document [facility] [address] [place] [address] ProviderLayla MD Social History Tobacco [...] Conversion Note - Layla Acosta ProviderMD - 07/12/2018 7:06 PM EDT Discharge Instructions Entered On: 07/12/2018 18:07 EDT Performed On: 07/12/2018 18:06 EDT by Jessica Cote Case Management-Foreclosure Field Inspector DC Instructions HWD Medical Equipment For Home Use : BLUEGRASS BRACING FOR CPM RENTAL Home Health Services : [facility] [phone] Jessica Cote Case Management-Foreclosure Field Inspector - 07/12/2018 18:06 EDT documented in this encounter Plan of Treatment Not on file documented as of this encounter Visit Diagnoses Not on filedocumented in this encounter
--- OUTSIDE RECORDS SUMMARY | 2024-11-22 15:51 | XMS_ITS | Encounter Summary ---
Author Organization [employer] ([place], [place], [place], [place]) Address [address] [place] [address] Care Team Providers Care Stove Fitter Name Role Phone Unavailable Primary Care Provider Unavailabl e Encounter Details Date Type Department Care Team (Late st Contact Info) Description 07/12/2018 Transcribed Document [facility] Radiology [address] [place] [address] Provider, Layla Acosta MD Social [...] Note - meryl Rojo MD - 07/12/2018 7:00 PM EDT Pain Assessment Entered On: 07/12/2018 18:57 EDT Performed On: 07/12/2018 19:19 EDT by Gaby Loera RN Intervention Information: traMADol Performed by Gaby Loera RN on 07/12/2018 18:19:00 EDT traMADol,50mg Oral Pain Assessment Pain Assessment : Follow-up assessment Pain Scale Goal : 0 Pain Scale Used : 0-10 Scale Location : Knee, right Onset : Gradual Pain Radiation : No Pain Improved by : Medication Gaby Loera RN - 07/12/2018 18:56 EDT Pain Scale Intensity : 2 Gaby Loera RN - 07/12/2018 18:56 EDT Image 4 - Images currently included in the form version of this document have not been included in the text rendition version of the form. documented in this encounter Plan of Treatment Not on file documented as of this encounter Visit Diagnoses Not on filedocumented in this encounter
--- OUTSIDE RECORDS SUMMARY | 2024-11-22 15:51 | XMS_ITS | Encounter Summary ---
Author Organization [employer] [address] ([place], [place], [place], [place]) Address [address] [place] [address] Care Team Providers Care Business Economist Name Role Phone Unavailable Primary Care Provider Unavailabl e Encounter Details Date Type Department Care Team (Late st Contact Info) Description 07/12/2018 Transcribed Document [facility] Radiology 1 [place] [address] [...] Note - Layla Rojo MD - 07/12/2018 8:00 PM EDT Pain Assessment Entered On: 07/12/2018 18:56 EDT Performed On: 07/12/2018 19:19 EDT by Gaby Loera RN Intervention Information: acetaminophen Performed by Gaby Loera RN on 07/12/2018 18:19:00 EDT acetaminophen,1000mg Oral Pain Assessment Pain Assessment [...]
--- OUTSIDE RECORDS SUMMARY | 2024-11-22 15:51 | XMS_ITS | Encounter Summary ---
Author Organization [employer] ([place], [place], [place], [place]) Address [address] [place] [address] Care Team Providers Care Recreation Therapy Aide Name Role Phone Unavailable Primary Care Provider Unavailabl e Encounter Details Date Type Department Care Team (Late st Contact Info) Description 07/13/2018 Transcribed Document [facility] Radiology [address] [place] [address] Provider, Layla Acosta MD Social [...] Miscellaneous Notes * Cerner Conversion Note - [facility] Karla Rojo MD - 07/13/2018 12:48 PM EDT [facility] [address] , [place] [address] Patient Copy Patient Information: Name: FLOR LUX Current Date: 07/13/2018 11:48:22 : 1945 Patient Address: [place] [address] Patient Attending Physician: FREDERIC ADAMS MD-ORT Primary Care Provider: RODO SANFORD MD-[facility] Primary Care Provider Discharge Diagnosis: Weakness Weight on Admission: 175 lb, 0 oz Comment: Follow-up Instructions: With: Address: When: Follow up with specialty services Within 2 to 3 days Comments: Nephrology With: Address: When: Follow up with primary care provider Within 2 to 3 days With: Address: When: DEYSI MEJIA [address] [facility], [address] [place] [address] [employer] (1) 11:15 AM Comments: Appointment has been made Discharge Instructions: Medical Equipment for Home Use: BLUEGRASS BRACING FOR CPM RENTAL Home Health Services: [facility] [phone] Immunizations Documented During Stay: No Immunizations Found [...] 5 Milligram(s) Oral Two Times A Day. multivitamin Oral Every Day. [facility] OTC. oxyCODONE (oxyCODONE 5 mg oral tablet) 1 Tablet(s) Oral Every 4 Hours as needed Pain (Moderate 4-6). raNITIdine 150 Milligram(s) Oral Every Evening. sertraline [...] Barley. Bulgur wheat. Millet. Bran muffins. Popcorn. [place] wafer crackers. ?? Vegetables Sweet potatoes. Spinach. Kale. Artichokes. Cabbage. Broccoli. Green peas. Carrots. Squash. ?? Fruits Berries. Pears. Apples. Oranges. Avocados. Prunes and raisins. Dried figs. ?? Meats and Other Protein Sources [place], kidney, hoff, and soy beans. Split peas. [...] alphonso has 11 g of protein. ?? [place] seeds ??? 1 oz has 5.5 g [...] floor. ?? Place frequently used items in xcqk-ir-njfkb places ?? Keep electrical cables out of [...] ? Using the bathroom. ? Using household solar power installer or toxic chemicals. ? Touching or taking [...] are a day sleeper or work a overnight stocker. Some people have thoughts about suicide while [...] may report side effects to FDA at 0-478-VTF-8196. What other drugs will affect gabapentin? Taking gabapentin with other drugs that make you sleepy can worsen this effect. Ask your doctor before taking a sleeping pill, narcotic medication, muscle relaxer, or medicine for anxiety, depression, or seizures. Other drugs may interact with gabapentin, including prescription and ysdm-mqi-lephcgc medicines, vitamins, and herbal products. Tell your [...] to ensure that the information provided by Bliips. ('Multum') is accurate, up-to-date, and complete, but no guarantee is made to that effect. Drug information contained herein may be time sensitive. E[employer] Cloud information has been compiled for use by healthcare practitioners and consumers in the [place] and therefore E[employer] Cloud does not warrant that uses outside of the [place] are appropriate, unless specifically indicated otherwise. [employer]X MEDIAs drug information does not endorse drugs, diagnose patients or recommend therapy. [employer]As drug information is an informational resource designed [...] effective or appropriate for any given patient. [employer] does not assume any responsibility for any aspect of healthcare administered with the aid of information E[employer] Cloud provides. The information contained herein is not intended to cover all possible uses, directions, precautions, warnings, drug interactions, allergic reactions, or adverse effects. If you have questions about the drugs you are taking, check with your doctor, nurse or pharmacist. Copyright 5266-0571 Bliips. Version: 14.01. Revision Date: 02/08/2017. oxycodone (ox [...] The extended-release form of oxycodone is for qnrgdj-ajm-unnvw treatment of pain and should not be [...] against the law. Stop taking all other bwmerk-asj-acnmb narcotic pain medicines when you start taking [...] may report side effects to FDA at 9-412-AWI-5966. What other drugs will affect oxycodone? You [...] may affect oxycodone. This includes prescription and zqmb-gjs-vlkmmru medicines, vitamins, and herbal products. Not all [...] to ensure that the information provided by Bliips. ('Multum') is accurate, up-to-date, and complete, but no guarantee is made to that effect. Drug information contained herein may be time sensitive. Efficient Cloud information has been compiled for use by healthcare practitioners and consumers in the [place] and therefore E[employer] Cloud does not warrant that uses outside of the [place] are appropriate, unless specifically indicated otherwise. Efficient Cloud's drug information does not endorse drugs, diagnose patients or recommend therapy. OX MEDIAs drug information is an informational resource designed [...] effective or appropriate for any given patient. [employer] does not assume any responsibility for any aspect of healthcare administered with the aid of information [facility] provides. The information contained herein is not intended to cover all possible uses, directions, precautions, warnings, drug interactions, allergic reactions, or adverse effects. If you have questions about the drugs you are taking, check with your doctor, nurse or pharmacist. Copyright 9971-1630 Bliips. Version: 13.02. Revision Date: 03/29/2018. tramadol (TRAM [...] extended-release form of this medicine is for cweawi-egg-ksufx treatment of pain. This form of tramadol [...] against the law. Stop taking all other swrqzh-qvt-arlty narcotic pain medications when you start taking [...] may report side effects to FDA at 0-034-AQW-4036. What other drugs will affect tramadol? You [...] may affect tramadol. This includes prescription and xhye-mpd-hxydujl medicines, vitamins, and herbal products. Not all [...] to ensure that the information provided by Bliips. ('Multum') is accurate, up-to-date, and complete, but no guarantee is made to that effect. Drug information contained herein may be time sensitive. Bluetrain.iotum information has been compiled for use by healthcare practitioners and consumers in the [place] and therefore [employer] does not warrant that uses outside of the [place] are appropriate, unless specifically indicated otherwise. Efficient Cloud's drug information does not endorse drugs, diagnose patients or recommend therapy. Efficient Cloud's drug information is an informational resource designed [...] effective or appropriate for any given patient. [facility] does not assume any responsibility for any aspect of healthcare administered with the aid of information [facility] provides. The information contained herein is not intended to cover all possible uses, directions, precautions, warnings, drug interactions, allergic reactions, or adverse effects. If you have questions about the drugs you are taking, check with your doctor, nurse or pharmacist. Copyright 4812-5054 [facility]. Version: 18.02. Revision Date: 03/29/2018. CIGARETTE SMOKING: The facts are clear, cigarette smoking will shorten your life. Smoking can cause many illnesses along the way. As a healthcare provider, we recommend that you stop smoking. Assistance with quitting is available by contacting 6-032-SVEK-NOW. This is a free resource providing counseling, [...] Be sure to sign up for the [employer] patient portal, which gives you 22/11 access to your medical information ??? including these discharge instructions ??? using your computer, smartphone, or tablet. Just go to T[employer]Club to get started. Questions? Call . [facility] would like to thank you for allowing us to assist you with your healthcare needs. MACI Benjamin RITA MOR, (or leasing representative) have received the above patient education materials/instructions and have verbalized understanding: Patient Signature _ Date/Time Patient Grief Counselor Signature (if needed) Date/Time Clinician/Hospital Grief Counselor Signature (if needed) Date/Time documented in this encounter Plan of Treatment Not on file documented as of this encounter Visit Diagnoses Not on filedocumented in this encounter
--- OUTSIDE RECORDS SUMMARY | 2024-11-22 15:51 | XMS_ITS | Encounter Summary ---
Author Organization [employer] ([place], [place], [place], [place]) Address [address] [place] [address] Care Team Providers Care Adjunct Psychology Instructor Name Role Phone Unavailable Primary Care Provider Unavailabl e Encounter Details Date Type Department Care Team (Late st Contact Info) Description 07/13/2018 Transcribed Document [facility] Radiology 1 [place] [address] Provider, Layla Acosta MD Social [...] Miscellaneous Notes * Cerner Conversion Note - [facility] Karla Rojo MD - 07/13/2018 11:48 AM EDT [facility] [address] , [place] [address] Patient Copy Patient Information: Name: FLOR LUX Current Date: 07/13/2018 10:48:09 : 1945 Patient Address: [place] [address] Patient Attending Physician: FREDERIC ADAMS MD-ORT Primary Care Provider: RODO SANFORD MD-[facility] Primary Care Provider Discharge Diagnosis: Weakness Weight on Admission: 175 lb, 0 oz Comment: Follow-up Instructions: With: Address: When: Follow up with specialty services Within 1 week Comments: nephrology With: Address: When: Follow up with primary care provider Within 2 to 3 days With: Address: When: Follow up with primary care provider Within 2 to 3 days With: Address: When: DEYSI MEJIA [address] [facility] [place] [address] [facility] (1) 11:15 AM Comments: Appointment has been made Discharge Instructions: Medical Equipment for Home Use: BLUEGRASS BRACING FOR CPM RENTAL Home Health Services: [facility] [phone] Immunizations Documented During Stay: No Immunizations Found [...] Barley. Bulgur wheat. Millet. Bran muffins. Popcorn. Odd wafer crackers. ?? Vegetables Sweet potatoes. Spinach. Kale. Artichokes. Cabbage. Broccoli. Green peas. Carrots. Squash. ?? Fruits Berries. Pears. Apples. Oranges. Avocados. Prunes and raisins. Dried figs. ?? Meats and Other Protein Sources [place], kidney, hoff, and soy beans. Split peas. [...] alphonso has 11 g of protein. ?? [place] seeds ??? 1 oz has 5.5 g [...] floor. ?? Place frequently used items in nrqa-uv-owycu places ?? Keep electrical cables out of [...] ? Using the bathroom. ? Using household electrician helper or toxic chemicals. ? Touching or taking [...] are a day sleeper or work a manufacturing automation engineer. Some people have thoughts about suicide while [...] may report side effects to FDA at 6-096-VNJ-3851. What other drugs will affect gabapentin? Taking gabapentin with other drugs that make you sleepy can worsen this effect. Ask your doctor before taking a sleeping pill, narcotic medication, muscle relaxer, or medicine for anxiety, depression, or seizures. Other drugs may interact with gabapentin, including prescription and omwi-gkf-rugyuuq medicines, vitamins, and herbal products. Tell your [...] to ensure that the information provided by UNYQ. ('Multum') is accurate, up-to-date, and complete, but no guarantee is made to that effect. Drug information contained herein may be time sensitive. Consorte Media information has been compiled for use by healthcare practitioners and consumers in the [place] and therefore [employer] Media does not warrant that uses outside of the [place] are appropriate, unless specifically indicated otherwise. Applifiers drug information does not endorse drugs, diagnose patients or recommend therapy. Applifiers drug information is an informational resource designed [...] effective or appropriate for any given patient. [employer] does not assume any responsibility for any aspect of healthcare administered with the aid of information [facility] provides. The information contained herein is not intended to cover all possible uses, directions, precautions, warnings, drug interactions, allergic reactions, or adverse effects. If you have questions about the drugs you are taking, check with your doctor, nurse or pharmacist. Copyright 6494-0637 UNYQ. Version: 14.01. Revision Date: 02/08/2017. oxycodone (ox [...] The extended-release form of oxycodone is for csfwjf-ygm-zmntl treatment of pain and should not be [...] against the law. Stop taking all other qcxhkw-oof-phkrf narcotic pain medicines when you start taking [...] may report side effects to FDA at 7-868-GTH-6057. What other drugs will affect oxycodone? You [...] may affect oxycodone. This includes prescription and mvcf-xmm-qeavyrd medicines, vitamins, and herbal products. Not all [...] to ensure that the information provided by UNYQ. ('Multum') is accurate, up-to-date, and complete, but no guarantee is made to that effect. Drug information contained herein may be time sensitive. Cons[employer] Media information has been compiled for use by healthcare practitioners and consumers in the [place] and therefore [employer] does not warrant that uses outside of the [place] are appropriate, unless specifically indicated otherwise. Applifiers drug information does not endorse drugs, diagnose patients or recommend therapy. Applifiers drug information is an informational resource designed [...] effective or appropriate for any given patient. [facility] does not assume any responsibility for any aspect of healthcare administered with the aid of information [facility] provides. The information contained herein is not intended to cover all possible uses, directions, precautions, warnings, drug interactions, allergic reactions, or adverse effects. If you have questions about the drugs you are taking, check with your doctor, nurse or pharmacist. Copyright 6525-5617 [facility] Generation [facility]. Version: 13.02. Revision Date: 03/29/2018. tramadol (TRAM a dol) TerenceZip, Ultram, Ultram ER What is the most [...] extended-release form of this medicine is for zsyhut-eoj-wqujw treatment of pain. This form of tramadol [...] against the law. Stop taking all other wzgzql-zuv-uinml narcotic pain medications when you start taking [...] may report side effects to FDA at 6-987-LPE-9295. What other drugs will affect tramadol? You [...] may affect tramadol. This includes prescription and tcqu-png-psmprpd medicines, vitamins, and herbal products. Not all [...] to ensure that the information provided by UNYQ. ('Multum') is accurate, up-to-date, and complete, but no guarantee is made to that effect. Drug information contained herein may be time sensitive. Consorte Media information has been compiled for use by healthcare practitioners and consumers in the [place] and therefore iSkootum does not warrant that uses outside of the [place] are appropriate, unless specifically indicated otherwise. Consorte Media's drug information does not endorse drugs, diagnose patients or recommend therapy. Smartpay drug information is an informational resource designed [...] effective or appropriate for any given patient. [facility] does not assume any responsibility for any aspect of healthcare administered with the aid of information [facility] provides. The information contained herein is not intended to cover all possible uses, directions, precautions, warnings, drug interactions, allergic reactions, or adverse effects. If you have questions about the drugs you are taking, check with your doctor, nurse or pharmacist. Copyright 5106-8374 UNYQ. Version: 18.02. Revision Date: 03/29/2018. CIGARETTE SMOKING: The facts are clear, cigarette smoking will shorten your life. Smoking can cause many illnesses along the way. As a healthcare provider, we recommend that you stop smoking. Assistance with quitting is available by contacting 8-594-PZEZ-NOW. This is a free resource providing counseling, [...] Be sure to sign up for the FlexScore patient portal, which gives you 22/11 access to your medical information ??? including these discharge instructions ??? using your computer, smartphone, or tablet. Just go to Sp[employer] Wave to get started. Questions? Call . [facility] would like to thank you for allowing us to assist you with your healthcare needs. IMACI RITA MOR, (or medicare sales representative) have received the above patient education materials/instructions and have verbalized understanding: Patient Signature _ Date/Time Patient Subway Repair Supervisor Signature (if needed) Date/Time Clinician/Hospital Subway Repair Supervisor Signature (if needed) Date/Time documented in this encounter Plan of Treatment Not on file documented as of this encounter Visit Diagnoses Not on filedocumented in this encounter
--- OUTSIDE RECORDS SUMMARY | 2024-11-22 15:51 | XMS_ITS | Encounter Summary ---
Author Organization [employer] ([place], [place], [place], [place]) Address [address] [place] [address] Care Team Providers Care Fuse Maker Name Role Phone Unavailable Primary Care Provider Unavailabl e Encounter Details Date Type Department Care Team (Late st Contact Info) Description 07/13/2018 Transcribed Document [facility] Radiology [address] [place] [address] Provider, Layla Acosta MD Social [...] Miscellaneous Notes * Cerner Conversion Note - [facility] Karla Rojo MD - 07/13/2018 1:00 AM EDT Pain Assessment Entered On: 07/13/2018 1:00 EDT Performed On: 07/13/2018 0:43 EDT by Kieran Spivey RN Intervention Information: traMADol Performed by Kieran Spivey RN on 07/12/2018 23:43:00 EDT traMADol,50mg Oral Pain Assessment Pain Assessment : Follow-up assessment Pain Scale Goal : 3 Pain Intervention, Drug : Medicated Pain Improved by Intervention : Yes Kieran Spivey RN - 07/13/2018 1:00 EDT documented in this encounter Plan of Treatment Not on file documented as of this encounter Visit Diagnoses Not on filedocumented in this encounter
--- OUTSIDE RECORDS SUMMARY | 2024-11-22 15:51 | XMS_ITS | Encounter Summary ---
Author Organization [employer] ([place], [place], [place], [place]) Address [address] [place] [address] Care Team Providers Care Recreational Vehicle Resort Manager Name Role Phone Unavailable Primary Care Provider Unavailabl e Encounter Details Date Type Department Care Team (Late st Contact Info) Description 07/13/2018 Transcribed Document [facility] Radiology [address] [place] [address] Provider, Layla Acosta MD Social [...] Note - Layla Rojo MD - 07/13/2018 1:49 PM EDT Discharge Summary, PT Entered On: 07/13/2018 12:50 EDT Performed On: 07/13/2018 12:49 EDT by Nany Walker Emissions Technician Lead Discharge Summary Discharge Summary Provider Notified : Nursing, Referring provider Reason for Discharge : Discharged from hospital, All goals met Discharged to, Therapy : Home, with home health Nany Walker Emissions Technician Lead - 07/13/2018 12:49 EDT Discharge Summary Comment, PT : At the time of dc, SBA with transfers using FWW. VCs with proper technique. SBA with bed mobility. Pt ambulated ~100ft with FWW and SBA. She demonstrated slow pace, step to gait pattern, foot flat, impaired right knee flexion during pre swing phase, no LOB - cues for reciprocal gait, heel toe walking, upright posture and increased R knee flexion. Therapist educated patient with safety awareness and HEP. TKA: HEP performed at therapy mat table AROM x25 reps: Seated heel slides on skateboard Long ARC Quads Short Arc Quads in supine with roll in place Straight leg raises Ankle pumps, Quad sets and gluteal sets with heels propped on foam roll Supine heel slides Prone hangs with 5# x10min. AAROM: ext 0-115 flexion. Pt okay'd therapist for overpressure to obtain ROM. Verbal and tactile cues with all exercises. Reviewed olmstead rules and pt was given olmstead rules sheet. Met all LTG, dc home with family care and hhpt. I agree with above D/C summary. Lily Welsh, PT DIANNA WELSH, PT - 07/13/2018 16:09 EDT Director Database Goals Other PT LTG Grid Goal #1 Goal #2 Other : Patient will participate in ther ex training for improved strength with gait and transfers. Patient will complete 2 steps with left rail and min assist for safe access to home at discharge. Date to Meet : 07/15/2018 EDT 07/15/2018 EDT Goal Status : Goal met Goal met DIANNA WELSH, PT - 07/13/2018 16:09 EDT DIANNA WELSH, PT - 07/13/2018 16:09 EDT documented in this encounter Plan of Treatment Not on file documented as of this encounter Visit Diagnoses Not on filedocumented in this encounter
--- OUTSIDE RECORDS SUMMARY | 2024-11-22 15:51 | XMS_ITS | Encounter Summary ---
Author Organization [facility] ([place], [place], [place], [place]) Address [address] [place] [address] Care Team Providers Care Regulatory Affairs Assistant Name Role Phone Unavailable Primary Care Provider Unavailabl e Encounter Details Date Type Department Care Team (Late st Contact Info) Description 07/12/2018 Transcribed Document [facility] Radiology [address] [place] [address] Provider, Layla Acosta MD Social [...] Miscellaneous Notes * Cerner Conversion Note - [facility] Karla Rojo MD - 07/12/2018 10:39 AM EDT Consult Phone Call Documentation Entered On: 07/12/2018 10:08 EDT Performed On: 07/12/2018 9:39 EDT by ELKIN SALAZAR Phone Call for Consults Consult Phone Call/Page Attempt : First call Physician Requesting Consult : KELLY JESUS MD Physician Requested for Consult : NEEL JEROME MD-BECCA Physician Covering for Consult : DEBORA HUNTER MD-BECCA Date and Time Call Returned : 07/12/2018 10:08 EDT ELKIN SALAZAR - 07/12/2018 10:08 EDT documented in this encounter Plan of Treatment Not on file documented as of this encounter Visit Diagnoses Not on filedocumented in this encounter
--- OUTSIDE RECORDS SUMMARY | 2024-11-22 15:51 | XMS_ITS | Encounter Summary ---
Author Organization [employer] ([place], [place], [place], [place]) Address [address] [place] [address] Care Team Providers Care Marketing And Development Coordinator Name Role Phone Unavailable Primary Care Provider Unavailabl e Encounter Details Date Type Department Care Team (Late st Contact Info) Description 07/13/2018 Transcribed Document [facility] Radiology 1 [place] [address] Provider, Layla Acosta MD Social [...] Note - Layla Rojo MD - 07/13/2018 11:32 AM EDT Patient: FLOR LUX Age: 72 years Sex: Female : 1945 Associated Diagnoses: None Author: KELLY JESUS MD Subjective Chief complaint. better PT/OT no nausea Health Status Allergies: Allergic Reactions (Selected) Severity Not Documented Latex- No reactions were documented. Penicillin- No reactions were documented. Sulfa drugs- No reactions were documented. Tetanus toxoid- No reactions were documented., Allergies (4) Active Reaction Latex None Documented penicillin None Documented sulfa drugs None Documented tetanus toxoid None Documented Current medications: (Selected) Inpatient Medications Ordered Ativan: 0.5 mg, IV Push, Q4H, PRN: Agitation Benadryl: 12.5 mg, Oral, At Bedtime, PRN: Insomnia Benadryl: 25 mg, Oral, Q4H, PRN: Itching Colace: 100 mg, Oral, BID Dulcolax Laxative: 10 mg, Rectal, 1-Time, PRN: Constipation Plavix: 75 mg, Oral, Daily Protonix: 40 mg, Oral, Daily Sodium Chloride 0.9% intravenous solution 1,000 mL: 50 mL/Hr, IntraVENous Tylenol: 1,000 mg, Oral, Q8HInt Zofran: 4 mg, IV Push, Q8H, PRN: Nausea amLODIPine: 10 mg, Oral, QAM aspirin: 81 mg, Oral, Daily atorvastatin: 40 mg, Oral, Daily gabapentin: 300 mg, Oral, At Bedtime glipiZIDE: 5 mg, Oral, BIDAC hydrALAZINE: 10 mg, IV Push, Q6H, PRN: Hypertension insulin regular sliding scale: Scale A, SubCutaneous, Q6H metoclopramide: 5 mg, IV Push, Q4H, PRN: Nausea/Vomiting multivitamin: 1 Tab, Oral, Daily naloxone: 0.1 mg, IV Push, Q5Min, PRN: Oversedation nicotine 21 mg/24 hr transdermal film, extended release: 1 Patch, TransDermal, Daily oxyCODONE: 10 mg, Oral, Q4H, PRN: Pain (Severe 7-10) oxyCODONE: 5 mg, Oral, Q4H, PRN: Pain (Moderate 4-6) senna: 8.6 mg, Oral, At Bedtime, PRN: Constipation sertraline: 50 mg, Oral, QPM traMADol: 50 mg, Oral, Q6H Documented Medications Documented Vitamin B12: 5,000 mcg, Oral, Daily, 0 Refill(s) Vitamin D3: 5,000 Int Units, Oral, Daily, 0 Refill(s) amLODIPine: 10 mg, Oral, QAM, 0 Refill(s) aspirin 81 mg oral delayed release tablet: 1 Tab, Oral, Daily, 30 Tab, 0 Refill(s) atorvastatin: 40 mg, Oral, QAM, 0 Refill(s) clopidogrel: 75 mg, Oral, Daily, 0 Refill(s) gabapentin 300 mg oral capsule: 1 Cap, Oral, At Bedtime, 0 Refill(s) glipiZIDE: 5 mg, Oral, BID, 0 Refill(s) multivitamin: Oral, Daily, [facility] OTC, 0 Refill(s) oxyCODONE 5 mg oral tablet: 1 Tab, Oral, Q4H, PRN: Pain (Moderate 4-6), 0 Refill(s) raNITIdine: 150 mg, Oral, QPM, 0 Refill(s) sertraline: 50 mg, Oral, QPM, 0 Refill(s) traMADol 50 mg oral tablet: 1 Tab, Oral, TID, 0 Refill(s), Home Medications (13) Active amLODIPine 10 mg, Oral, QAM aspirin 81 mg oral delayed release tablet 81 mg = 1 Tab, Oral, Daily atorvastatin 40 mg, Oral, QAM clopidogrel 75 mg, Oral, Daily gabapentin 300 mg oral capsule 300 mg = 1 Cap, Oral, At Bedtime glipiZIDE 5 mg, Oral, BID multivitamin , Oral, Daily oxyCODONE 5 mg oral tablet 5 mg = 1 Tab, PRN, Oral, Q4H raNITIdine 150 mg, Oral, QPM sertraline 50 mg, Oral, QPM traMADol 50 mg oral tablet 50 mg = 1 Tab, Oral, TID Vitamin B12 5,000 mcg, Oral, Daily Vitamin D3 5,000 Int Units, Oral, Daily , Medications (26) Active Scheduled: (14) acetaminophen 500 mg tab 1,000 mg 2 Tab, Oral, Q8HInt amLODIPine 10 mg tab 10 mg 1 Tab, Oral, QAM aspirin EC 81 mg tab 81 mg 1 Tab, Oral, Daily atorvastatin 20 mg tab 40 mg 2 Tab, Oral, Daily clopidogrel 75 mg tab 75 mg 1 Tab, Oral, Daily docusate sodium 100 mg cap 100 mg 1 Cap, Oral, BID gabapentin 300 mg cap 300 mg 1 Cap, Oral, At Bedtime glipiZIDE 5 mg tab 5 mg 1 Tab, Oral, BIDAC insulin regular 1 unit/0.01 mL inj 3mL Scale A, SubCutaneous, Q6H multiple vitamin (Thera) tab 1 Tab, Oral, Daily nicotine 21 mg/24 hr patch 1 Patch, TransDermal, Daily pantoprazole EC 40 mg tab 40 mg 1 Tab, Oral, Daily sertraline 50 mg tab 50 mg 1 Tab, Oral, QPM traMADol 50 mg tab 50 mg 1 Tab, Oral, Q6H Continuous: (1) NaCl 0.9% 1,000 mL 1,000 mL, IntraVENous, 50 mL/Hr PRN: (11) bisacodyl 10 mg supp 10 mg 1 Supp, Rectal, 1-Time diphenhydrAMINE 25 mg tab 25 mg 1 Tab, Oral, Q4H diphenhydrAMINE 25 mg tab 12.5 mg 0.5 Tab, Oral, At Bedtime hydrALAZINE 20 mg/1 mL inj 10 mg 0.5 mL, IV Push, Q6H LORazepam 2 mg/mL inj 0.5 mg 0.25 mL, IV Push, Q4H metoclopramide 10 mg/2 mL inj 5 mg 1 mL, IV Push, Q4H naloxone 0.4 mg/1 mL inj 0.1 mg 0.25 mL, IV Push, Q5Min ondansetron 4 mg/2 mL inj 4 mg 2 mL, IV Push, Q8H oxyCODONE 5 mg tab 5 mg 1 Tab, Oral, Q4H oxyCODONE 5 mg tab 10 mg 2 Tab, Oral, Q4H senna 8.6 mg tab 8.6 mg 1 Tab, Oral, At Bedtime Problem list: Medical TIA (transient ischemic attack) / SNOMED CT 675429541 / Confirmed HTN (hypertension) / SNOMED CT 9178724539 / Confirmed Hyperlipidemia / SNOMED CT 45218835 / Confirmed Fibromyalgia / SNOMED CT 948838930 / Confirmed Circulation problem / SNOMED CT 8459570225 / Confirmed Diabetes / SNOMED CT 282653266 / Confirmed Depression / SNOMED CT 16921872 / Confirmed CAD (coronary artery disease) / SNOMED CT 90589881 / Confirmed At risk for sleep apnea / IMO 77621107 / Confirmed Arthritis / SNOMED CT 5654962 / Confirmed Anxiety / SNOMED CT 76323907 / Confirmed, Active Problems (11) Anxiety Arthritis At risk for sleep apnea CAD (coronary artery disease) Circulation problem Depression Diabetes Fibromyalgia HTN (hypertension) Hyperlipidemia TIA (transient ischemic attack) Objective VS/Measurements Vitals Signs (last 24 hrs) [...] 42 (JUL 12 12:21) L 57 (JUL 12:07) MAP 79 (JUL 13 05:41) 66 (JUL 12 18:42) 118 (JUL 12 12:21) SpO2 96 (JUL 13 05:41) 96 (JUL 12 12:21) 98 (JUL 12 23:07) General: Alert and oriented, No acute distress. Eye: Pupils are equal, round and reactive to light, Normal conjunctiva. HENT: Normocephalic, Normal hearing. Neck: Supple, Non-tender. Respiratory: Lungs are clear to auscultation, Respirations are non-labored. Cardiovascular: Normal rate. Gastrointestinal: Soft, Non-tender, Non-distended. Genitourinary: No costovertebral angle tenderness. Musculoskeletal: No tenderness. Integumentary: Warm, Dry. Neurologic: Alert, Oriented, No focal deficits, Cranial Nerves II-XII are grossly intact. Psychiatric: Cooperative, Appropriate mood & affect, Normal judgment. Results Review JUL 13 05:10 139 112 H 31 / L 68 H 5.2 22 H 2.46 \ JUL 13 05:10 \ L 9.0 / H 12.4 203 / L 27.6 \ JUL 13 05:10 139 112 H 31 / L 68 H 5.2 22 H 2.46 \ JUL 13 05:10 \ L 9.0 / H 12.4 203 / L 27.6 \ Impression and Plan 1. Status post right knee replacement. 2. Chronic kidney disease. Stable creatinine. Her [...] Deep venous thrombosis prophylaxis, compression boots. Plan ARF IV Fluids nephrology following Labs in am d/w patient home today time spent 40 min documented in this encounter Plan of Treatment Not on file documented as of this encounter Visit Diagnoses Not on filedocumented in this encounter
--- OUTSIDE RECORDS SUMMARY | 2024-11-22 15:51 | XMS_ITS | Encounter Summary ---
Author Organization [employer] ([place], [place], [place], [place]) Address [address] [place] [address] Care Team Providers Care Brineyard Supervisor Name Role Phone Unavailable Primary Care Provider Unavailabl e Encounter Details Date Type Department Care Team (Late st Contact Info) Description 07/13/2018 Transcribed Document [facility] Radiology [address] [place] [address] Provider, Layla Acosta MD Social [...] Miscellaneous Notes * Cerner Conversion Note - [facility] Karla ProviderMD - 07/13/2018 3:00 AM EDT Boilermaker Apprentice Details Entered On: 07/13/2018 1:01 EDT Performed On: 07/13/2018 2:00 EDT by Kieran Spivey RN Order Details Transport Mode Order Detail : Wheelchair Isolation Precautions Order Detail : Standard Precautions Order Detail : N/A IV Order Detail : 1 Oxygen Order Detail : 0 Nurse Collect Order Detail : 0 Lift/Transfer : Moderate assist Central Line Order Detail : No Room Service : Appropriate Arterial Line : No Kieran Spivey RN - 07/13/2018 1:00 EDT documented in this encounter Plan of Treatment Not on file documented as of this encounter Visit Diagnoses Not on filedocumented in this encounter
--- OUTSIDE RECORDS SUMMARY | 2024-11-22 15:51 | XMS_ITS | Encounter Summary ---
Author Organization [employer] ([place], [place], [place], [place]) Address [address] [place] [address] Care Team Providers Care Tapering Machine Operator Name Role Phone Unavailable Primary Care Provider Unavailabl e Encounter Details Date Type Department Care Team (Late st Contact Info) Description 07/13/2018 Transcribed Document [facility] Radiology [address] [place] [address] Provider, Layla Acosta MD Social [...] Miscellaneous Notes * Cerner Conversion Note - [facility] Karla Rojo MD - 07/13/2018 11:49 AM EDT [facility] [address] , [place] [address] Patient Copy Patient Information: Name: FLOR LUX Current Date: 07/13/2018 10:49:37 : 1945 Patient Address: [place] [address] Patient Attending Physician: FREDERIC ADAMS MD-ORT Primary Care Provider: RODO SANFORD [facility] Primary Care Provider Discharge Diagnosis: Weakness Weight on Admission: 175 lb, 0 oz Comment: Follow-up Instructions: With: Address: When: Follow up with specialty services Within 2 to 3 days Comments: Nephrology With: Address: When: Follow up with primary care provider Within 2 to 3 days With: Address: When: DEYSI MEJIA [address] [facility] [place] [address] [email or web address] (1) 11:15 AM Comments: Appointment has been made Discharge Instructions: Medical Equipment for Home Use: BLUEGRASS BRACING FOR CPM RENTAL Home Health Services: [facility], [facility] [phone] Immunizations Documented During Stay: No Immunizations Found [...] Barley. Bulgur wheat. Millet. Bran muffins. Popcorn. [place] wafer crackers. ?? Vegetables Sweet potatoes. Spinach. Kale. Artichokes. Cabbage. Broccoli. Green peas. Carrots. Squash. ?? Fruits Berries. Pears. Apples. Oranges. Avocados. Prunes and raisins. Dried figs. ?? Meats and Other Protein Sources [place], kidney, hoff, and soy beans. Split peas. [...] alphonso has 11 g of protein. ?? [place] seeds ??? 1 oz has 5.5 g [...] floor. ?? Place frequently used items in xmhy-vp-wkiaj places ?? Keep electrical cables out of [...] ? Using the bathroom. ? Using household funder or toxic chemicals. ? Touching or taking [...] are a day sleeper or work a roof painter. Some people have thoughts about suicide while [...] may report side effects to FDA at 7-748-OZG-8655. What other drugs will affect gabapentin? Taking gabapentin with other drugs that make you sleepy can worsen this effect. Ask your doctor before taking a sleeping pill, narcotic medication, muscle relaxer, or medicine for anxiety, depression, or seizures. Other drugs may interact with gabapentin, including prescription and qpyq-gbq-zhexbdz medicines, vitamins, and herbal products. Tell your [...] to ensure that the information provided by [employer]. [employer]') is accurate, up-to-date, and complete, but no guarantee is made to that effect. Drug information contained herein may be time sensitive. [employer] information has been compiled for use by healthcare practitioners and consumers in the [place] and therefore [employer] does not warrant that uses outside of the [place] are appropriate, unless specifically indicated otherwise. [employer] drug information does not endorse drugs, diagnose patients or recommend therapy. [employer] drug information is an informational resource designed [...] effective or appropriate for any given patient. [employer] does not assume any responsibility for any aspect of healthcare administered with the aid of information [employer] provides. The information contained herein is not intended to cover all possible uses, directions, precautions, warnings, drug interactions, allergic reactions, or adverse effects. If you have questions about the drugs you are taking, check with your doctor, nurse or pharmacist. Copyright 4124-5346 [employer]. Version: 14.01. Revision Date: 02/08/2017. oxycodone (ox [...] The extended-release form of oxycodone is for tlnbay-ynv-cjqgh treatment of pain and should not be [...] against the law. Stop taking all other dwsldy-cva-hrgbn narcotic pain medicines when you start taking [...] may report side effects to FDA at 0-295-CZV-7517. What other drugs will affect oxycodone? You [...] may affect oxycodone. This includes prescription and rckh-exw-trpwtih medicines, vitamins, and herbal products. Not all [...] to ensure that the information provided by [employer]') is accurate, up-to-date, and complete, but no guarantee is made to that effect. Drug information contained herein may be time sensitive. [employer] information has been compiled for use by healthcare practitioners and consumers in the [place] and therefore [employer] does not warrant that uses outside of the [place] are appropriate, unless specifically indicated otherwise. [employer]'s drug information does not endorse drugs, diagnose patients or recommend therapy. [employer] drug information is an informational resource designed [...] effective or appropriate for any given patient. [employer] does not assume any responsibility for any aspect of healthcare administered with the aid of information [facility] provides. The information contained herein is not intended to cover all possible uses, directions, precautions, warnings, drug interactions, allergic reactions, or adverse effects. If you have questions about the drugs you are taking, check with your doctor, nurse or pharmacist. Copyright 1458-9093 [employer]. Version: 13.02. Revision Date: 03/29/2018. tramadol (TRAM [...] extended-release form of this medicine is for itaodg-oqf-ahzxz treatment of pain. This form of tramadol [...] against the law. Stop taking all other khwwfq-gjh-klrmz narcotic pain medications when you start taking [...] may report side effects to FDA at 9-747-NJU-7467. What other drugs will affect tramadol? You [...] may affect tramadol. This includes prescription and icfp-zgs-kdnzvhp medicines, vitamins, and herbal products. Not all [...] to ensure that the information provided by [employer]') is accurate, up-to-date, and complete, but no guarantee is made to that effect. Drug information contained herein may be time sensitive. [employer] information has been compiled for use by healthcare practitioners and consumers in the [place] and therefore [employer] does not warrant that uses outside of the [place] are appropriate, unless specifically indicated otherwise. [employer]'s drug information does not endorse drugs, diagnose patients or recommend therapy. [employer]'s drug information is an informational resource designed [...] effective or appropriate for any given patient. [facility] does not assume any responsibility for any aspect of healthcare administered with the aid of information [facility] provides. The information contained herein is not intended to cover all possible uses, directions, precautions, warnings, drug interactions, allergic reactions, or adverse effects. If you have questions about the drugs you are taking, check with your doctor, nurse or pharmacist. Copyright 7292-9873 [facility]. Version: 18.02. Revision Date: 03/29/2018. CIGARETTE SMOKING: The facts are clear, cigarette smoking will shorten your life. Smoking can cause many illnesses along the way. As a healthcare provider, we recommend that you stop smoking. Assistance with quitting is available by contacting 7-812-RZFO-NOW. This is a free resource providing counseling, [...] Be sure to sign up for the [email or web address] patient portal, which gives you 22/11 access to your medical information ??? including these discharge instructions ??? using your computer, smartphone, or tablet. Just go to [employer] to get started. Questions? Call . [facility] would like to thank you for allowing us to assist you with your healthcare needs. MACI Benjamin RITA MOR, (or inside sales representative) have received the above patient education materials/instructions and have verbalized understanding: Patient Signature _ Date/Time Patient Rivet Sorter Signature (if needed) Date/Time Clinician/Hospital Rivet Sorter Signature (if needed) Date/Time documented in this encounter Plan of Treatment Not on file documented as of this encounter Visit Diagnoses Not on filedocumented in this encounter
--- OUTSIDE RECORDS SUMMARY | 2024-11-22 15:51 | XMS_ITS | Encounter Summary ---
Author Organization [employer] ([place], [place], [place], [place]) Address [address] [place] [address] Care Team Providers Care Director Mortgage Name Role Phone Unavailable Primary Care Provider Unavailabl e Encounter Details Date Type Department Care Team (Late st Contact Info) Description 07/12/[address] [facility] Radiology [address] [place] [address] Provider, Layla Acosta MD Social [...] Miscellaneous Notes * Cerner Conversion Note - [facility] Karla Rojo MD - 07/12/2018 7:07 PM EDT [facility] [address] , [place] [address] Patient Copy Patient Information: Name: FLOR LUX Current Date: 07/12/2018 18:07:05 : 1945 Patient Address: [place] [address] Patient Attending Physician: FREDERIC ADAMS MD-ORT Primary Care Provider: RODO SANFORD MD-[facility] Primary Care Provider Discharge Diagnosis: Weight on Admission: 175 lb, 0 oz Comment: Follow-up Instructions: With: Address: When: DEYSI MEJIA [address] [facility], [address] [place] [id number] Business (1) 11:15 AM Comments: Appointment has been made Discharge Instructions: Medical Equipment for Home Use: BLUEGRASS BRACING FOR CPM RENTAL Home Health Services: [facility] [phone] Immunizations Documented During Stay: No Immunizations Found [...] Barley. Bulgur wheat. Millet. Bran muffins. Popcorn. Whiteside wafer crackers. ?? Vegetables Sweet potatoes. Spinach. Kale. Artichokes. Cabbage. Broccoli. Green peas. Carrots. Squash. ?? Fruits Berries. Pears. Apples. Oranges. Avocados. Prunes and raisins. Dried figs. ?? Meats and Other Protein Sources Nelson, kidney, hoff, and soy beans. Split peas. [...] alphonso has 11 g of protein. ?? [place] seeds ??? 1 oz has 5.5 g [...] floor. ?? Place frequently used items in kvyj-bx-tpczi places ?? Keep electrical cables out of [...] ? Using the bathroom. ? Using household sewer connector or toxic chemicals. ? Touching or taking [...] are a day sleeper or work a night court magistrate. Some people have thoughts about suicide while [...] may report side effects to FDA at 6-649-OGL-9041. What other drugs will affect gabapentin? Taking gabapentin with other drugs that make you sleepy can worsen this effect. Ask your doctor before taking a sleeping pill, narcotic medication, muscle relaxer, or medicine for anxiety, depression, or seizures. Other drugs may interact with gabapentin, including prescription and ttsv-lal-dxxdojr medicines, vitamins, and herbal products. Tell your [...] to ensure that the information provided by [employer]. ('Wikia') is accurate, up-to-date, and complete, but no guarantee is made to that effect. Drug information contained herein may be time sensitive. Wikia information has been compiled for use by healthcare practitioners and consumers in the [place] and therefore Wikia does not warrant that uses outside of the [place] are appropriate, unless specifically indicated otherwise. [employer] drug information does not endorse drugs, diagnose patients or recommend therapy. [employer] drug information is an informational resource designed [...] effective or appropriate for any given patient. Wikia does not assume any responsibility for any aspect of healthcare administered with the aid of information Wikia provides. The information contained herein is not intended to cover all possible uses, directions, precautions, warnings, drug interactions, allergic reactions, or adverse effects. If you have questions about the drugs you are taking, check with your doctor, nurse or pharmacist. Copyright 8386-7087 [employer]. Version: 14.01. Revision Date: 02/08/2017. oxycodone (ox [...] The extended-release form of oxycodone is for koktlo-qor-egqar treatment of pain and should not be [...] against the law. Stop taking all other rygxnq-cdi-tbdtj narcotic pain medicines when you start taking [...] may report side effects to FDA at 6-890-MYA-0688. What other drugs will affect oxycodone? You [...] may affect oxycodone. This includes prescription and yvnh-pau-jefdyko medicines, vitamins, and herbal products. Not all [...] to ensure that the information provided by [employer]. ('[employer]') is accurate, up-to-date, and complete, but no guarantee is made to that effect. Drug information contained herein may be time sensitive. Wikia information has been compiled for use by healthcare practitioners and consumers in the [place] and therefore Wikia does not warrant that uses outside of the [place] are appropriate, unless specifically indicated otherwise. Wikia's drug information does not endorse drugs, diagnose patients or recommend therapy. [employer] drug information is an informational resource designed [...] effective or appropriate for any given patient. Wikia does not assume any responsibility for any aspect of healthcare administered with the aid of information Wikia provides. The information contained herein is not intended to cover all possible uses, directions, precautions, warnings, drug interactions, allergic reactions, or adverse effects. If you have questions about the drugs you are taking, check with your doctor, nurse or pharmacist. Copyright 5349-8089 [employer]. Version: 13.02. Revision Date: 03/29/2018. tramadol (TRAM a dol) Melissa Gonzalesm, Ultram ER What is the most important [...] extended-release form of this medicine is for xynpkb-gfw-oecbk treatment of pain. This form of tramadol [...] against the law. Stop taking all other rylsfz-fdn-hufok narcotic pain medications when you start taking [...] may report side effects to FDA at 2-715-LJT-9782. What other drugs will affect tramadol? You [...] may affect tramadol. This includes prescription and xlma-nfu-pgdcxya medicines, vitamins, and herbal products. Not all [...] to ensure that the information provided by [employer]. ('Multum') is accurate, up-to-date, and complete, but no guarantee is made to that effect. Drug information contained herein may be time sensitive. Wikia information has been compiled for use by healthcare practitioners and consumers in the [place] and therefore Wikia does not warrant that uses outside of the [place] are appropriate, unless specifically indicated otherwise. Wikia's drug information does not endorse drugs, diagnose patients or recommend therapy. [employer] drug information is an informational resource designed [...] effective or appropriate for any given patient. [facility] does not assume any responsibility for any aspect of healthcare administered with the aid of information [facility] provides. The information contained herein is not intended to cover all possible uses, directions, precautions, warnings, drug interactions, allergic reactions, or adverse effects. If you have questions about the drugs you are taking, check with your doctor, nurse or pharmacist. Copyright 6942-3256 [facility]. Version: 18.02. Revision Date: 03/29/2018. CIGARETTE SMOKING: The facts are clear, cigarette smoking will shorten your life. Smoking can cause many illnesses along the way. As a healthcare provider, we recommend that you stop smoking. Assistance with quitting is available by contacting 6-751-BKGD-NOW. This is a free resource providing counseling, [...] sure to sign up for the [facility] patient portal, which gives you 22/11 access to your medical information ??? including these discharge instructions ??? using your computer, smartphone, or tablet. Just go to [employer] to get started. Questions? Call . [facility] would like to thank you for allowing us to assist you with your healthcare needs. IMACI RITA MOR, (or career services representative) have received the above patient education materials/instructions and have verbalized understanding: Patient Signature _ Date/Time Patient Veterinary Laboratory Diagnostician Signature (if needed) Date/Time Clinician/Hospital Veterinary Laboratory Diagnostician Signature (if needed) Date/Time documented in this encounter Plan of Treatment Not on file documented as of this encounter Visit Diagnoses Not on filedocumented in this encounter
--- OUTSIDE RECORDS SUMMARY | 2024-11-22 15:51 | XMS_ITS | Encounter Summary ---
Author Organization [employer] ([place], [place], [place], [place]) Address [address] [place] [address] Care Team Providers Care Poiser Name Role Phone Unavailable Primary Care Provider Unavailabl e Encounter Details Date Type Department Care Team (Late st Contact Info) Description 07/12/2018 Transcribed Document [facility] Radiology 1 [place] [address] Provider, Layla Acsota MD Social History Tobacco Use Types Packs/Day [...] Note - Layla Rojo MD - 07/12/2018 3:10 PM EDT Patient: FLOR LUX Age: 72 years [...] glipiZIDE: 5 mg, Oral, BID, 0 Refill(s) lisinopril: 5 mg, Oral, QPM, 0 Refill(s) multivitamin: Oral, Daily, [facility] OTC, 0 Refill(s) raNITIdine: 150 mg, Oral, QPM, [...] TIA (transient ischemic attack) / SNOMED CT 917238930 / Confirmed HTN (hypertension) / SNOMED CT 0068563861 / Confirmed Hyperlipidemia / SNOMED CT 72663330 / Confirmed Fibromyalgia / SNOMED CT 254989174 / Confirmed Circulation problem / SNOMED CT 1761150920 / Confirmed Diabetes / SNOMED CT 481703155 / Confirmed Depression / SNOMED CT 79897474 / Confirmed CAD (coronary artery disease) / SNOMED CT 57487241 / Confirmed At risk for sleep apnea / IMO 62441499 / Confirmed Arthritis / SNOMED CT 9272793 / Confirmed Anxiety / SNOMED CT 76045597 / Confirmed, Active Problems (11) Anxiety Arthritis At risk for sleep apnea CAD (coronary artery disease) Circulation problem Depression Diabetes Fibromyalgia HTN (hypertension) Hyperlipidemia TIA (transient ischemic attack) Objective VS/Measurements Vitals Signs (last 24 hrs) Last Charted Minimum Maximum Temp 97.8 (JUL 12 06:28) 97.8 (JUL 12 06:28) 98.3 (JUL 11 16:03) Mon HR 77 (JUL 12 12:00) 77 (JUL 12 12:00) 96 (JUL 12 02:54) Resp Rate 16 (JUL 12 06:28) 16 (JUL 11 16:55) H 32 (JUL 11 18:00) SBP 115 (JUL 12 12:21) 102 (JUL 11 16:03) H 144 (JUL 12 06:28) DBP L 42 (JUL 12 12:21) L 37 (JUL 11 23:31) 74 (JUL 12 02:54) MAP 118 (JUL 12:) 49 (JUL 11 16:10) 118 (JUL 12:) SpO2 96 (JUL 12:) L 91 (JUL 12 02:54) 99 (JUL 11 16:03) General: Alert and oriented, No acute distress. [...] & affect, Normal judgment. Results Review JUL 12 03:54 L 133 104 H 31 / H 366 H 5.7 21 H 2.74 \ JUL 12 03:54 L 133 104 H 31 / H 366 H 5.7 21 H 2.74 \ Impression and Plan 1. Status post right knee replacement. Patient [...] nephrology following Labs in am d/w patient and daughter home in am if kidney function better time spent 35 min Electronically signed by Julius Kang Conversion Operational Communication Chief Cerner at 09/22/2022 11:00 AM CDT documented in this encounter Plan of Treatment Not on file documented as of this encounter Visit Diagnoses Not on filedocumented in this encounter
--- OUTSIDE RECORDS SUMMARY | 2024-11-22 15:51 | XMS_ITS | Encounter Summary ---
Author Organization [employer] ([place], [place], [place], [place]) Address [address] [place] [address] Care Team Providers Care Motor Vehicle Emissions Inspector Name Role Phone Unavailable Primary Care Provider Unavailabl e Encounter Details Date Type Department Care Team (Late st Contact Info) Description 07/12/2018 Transcribed Document [facility] Radiology [address] [place] [address] Provider, Layla Acosta MD Social [...] Note - Layla Rojo MD - 07/12/2018 1:00 AM EDT Pain Assessment Entered On: 07/12/2018 4:42 EDT Performed On: 07/12/2018 3:49 EDT by Trudi Mao RN Intervention Information: traMADol Performed by Trudi Mao RN on 07/12/2018 02:49:00 EDT traMADol,50mg Oral Pain Assessment Pain Assessment : Follow-up assessment Pain Scale Goal : 0 Pain Scale Used : FACES Pain Intervention, Drug : Medicated Pain Improved by Intervention : Yes Trudi Mao RN - 07/12/2018 4:42 EDT Pain Scale Intensity : 0 Trudi Mao RN - 07/12/2018 4:42 EDT Image 4 - Images currently included in the form version of this document have not been included in the text rendition version of the form. documented in this encounter Plan of Treatment Not on file documented as of this encounter Visit Diagnoses Not on filedocumented in this encounter
--- OUTSIDE RECORDS SUMMARY | 2024-11-22 15:51 | XMS_ITS | Encounter Summary ---
Author Organization [employer] ([place], [place], [place], [place]) Address [address] [place] [address] Care Team Providers Care Oven Tender Name Role Phone Unavailable Primary Care Provider Unavailabl e Encounter Details Date Type Department Care Team (Late st Contact Info) Description 07/12/2018 Transcribed Document [facility] Radiology [address] [place] [address] Provider, Layla Acosta MD Social [...] Note - Layla Acosta ProviderMD - 07/12/2018 12:55 PM EDT Treatment Intervention, PT Entered On: 07/12/2018 13:40 EDT Performed On: 07/12/2018 13:35 EDT by NENITA PEREZ PT General Information, PT Visit Type, PT : [...] By: NENITA PEREZ, PT Active Diagnoses : No Qualifying Diagnoses Therapy Diagnosis, PT : aftercare following R TKA Admission Date : 07/12/2018 12:22 Personal Devices : Personal Devices Dentures, upper, Dentures, lower Assistive Devices : Assistive Devices No Devices Recorded NENITA PEREZ PT - 07/12/2018 13:35 EDT General Status Patient Received Status : Supine in bed, Bed alarm activated, Other: Ice and SCDs applied, Treatment Start Time : 07/12/2018 13:25 EDT Patient Left Status : Supine in bed, Bed alarm activated, RN/PCT informed, Communication board completed, All needs met and within reach, Other: Ice and SCDs applied. RN/PCT Informed Comment : Rn and patient consenting to treatment this date. Treatment End Time : 07/12/2018 14:00 EDT Treatment Time : 35 Minute(s) NENITA PEREZ PT - 07/12/2018 13:35 EDT Edu Topics Physical Therapy Education Grid Balance Training : Verbalizes understanding Bed Mobility Training : Verbalizes understanding Home Program/Exercises : Verbalizes understanding Role of Physical Therapy : Verbalizes understanding Safety : Verbalizes understanding Transfer Training : Verbalizes understanding Use of Assistive Device : Verbalizes understanding NENITA PEREZ PT - 07/12/2018 13:35 EDT Plan of Care, PT PT Tx Plan/Goals Established w Patient : Yes NENITA PEREZ PT - 07/12/2018 13:35 EDT Senior Instrumentation Engineer Goals Other PT LTG Grid Goal #1 Goal #2 Other : Patient will participate in ther ex training for improved strength with gait and transfers. Patient will complete 2 steps with left rail and min assist for safe access to home at discharge. Date to Meet : 07/15/2018 EDT 07/15/2018 EDT Goal Status : Progressing, continue Initial goal NENITA PEREZ PT - 07/12/2018 13:35 EDT NENITA PEREZ PT - 07/12/2018 13:35 EDT Treatment Note Subjective Comment : Patient was pleasant and cooperative with treatment this date, no complaints of pain at rest. Patient's Response to Treatment : No adverse reactions to treatment. Additional Objective Information : Patient is mod I with bed mobility and transfers with RW and SBA/mod I. Patient completed ther ex as follows: 2x10 ankle pumps, quad sets, glut sets, short arc quads, long arc quads, seated knee flexion, heel slides and SLR. Modified prone hangs x 10 minutes with 5 lb weight. R KNEE AAROM 0-110 with PT overpressure for flexion. Assessment : Patient progressing well. Plan for Treatment : Progress per POC as tolerated. NENITA PEREZ, PT - 07/12/2018 13:[address] [facility] PT Charges PT Therap. Exercise 15 min : 2 NENITA PEREZ, PT - 07/12/2018 13:35 EDT documented in this encounter Plan of Treatment Not on file documented as of this encounter Visit Diagnoses Not on filedocumented in this encounter
[2024-11-22 16:23] LABS: Hematocrit 29.7 % (37.0-47.0); Hemoglobin 9.3 g/dL (12.2-16.2); Immature Granulocytes % 0.2 %; Mean Corpuscular HGB Conc 31.3 g/dL (31.8-35.4); Mean Corpuscular Hemoglobin 25.8 pg (27.0-31.2); Mean Corpuscular Volume 82.3 fl (81-99); Nucleated Red Blood Cells % 0 %; Platelet Count 239 K/mm3 (142-424); Red Blood Count 3.61 M/mm3 (4.20-5.40); Red Cell Distribution Width-SD 48.6 fL; White Blood Count 9.0 K/mm3 (4.8-10.8)
[2024-11-22 16:25] LABS: Chloride 103 mmol/L (98-107); Sodium 134 mmol/L (136-145)
[2024-11-22 16:26] LABS: Potassium 4.6 mmoL/L (3.5-5.1)
[2024-11-22 16:28] LABS: Blood Urea Nitrogen 27 mg/dl (7-17); Creatinine,Serum 1.50 mg/dl (0.52-1.04); Estimated Glomerular Filt Rate 34 ml/min (>60); GFR (African American) 41 ML/MIN (>60)
[2024-11-22 16:29] LABS: Anion Gap 9.6 mEq/L (5-15); Calcium 10.3 mg/dl (8.4-10.2); Carbon Dioxide 26 mmol/L (22.0-30.0); Glucose 161 mg/dl (74-100)
== END 2024-11-22 23:59 | disposition home or self-care (01) ==
LOC: LAB.DROPOF 15:48
PROVIDERS: PCP Nurse Practitioner Family; Visit Provider Nurse Practitioner Family
DX: I69.351 Hemiplegia and hemiparesis following cerebral infarction affecting right dominant side (principal)
CPT/HCPCS: 80048; 85025

== ENCOUNTER 2024-11-23 14:32 | Outpatient (CLI) | payer MEDICARE, OTHER, SELFPAY ==
--- OUTSIDE RECORDS SUMMARY | 2024-11-23 14:39 | XMS_ITS | Encounter Summary ---
Author Organization [employer] ([place], [place], [place], [place]) Address [address] [place] [address] Care Team Providers Care Radial Router Operator Name Role Phone Unavailable Primary Care Provider Unavailabl e Encounter Details Date Type Department Care Team (Late st Contact Info) Description 07/12/2018 Transcribed Document [facility] Radiology [address] [place] [address] Provider, Layla Acosta MD Social [...] RENAL CONSULT NOTE WITH [facility] CONSULTING PHYSICIAN: Carroll Martin M.D. REASON FOR CONSULTATION: Elevated creatinine. CHIEF COMPLAINT: Knee replacement. HISTORY OF PRESENT ILLNESS: Patient is a 72-year-old white female with history of CKD in the past, follows with life enrichment specialist in [place]. Per patient reports, her baseline creatinine around [...] Follows with Nephrology in [place], may be [facility] life enrichment specialist. 3. Hypertension. Blood pressure was low yesterday, hold angiotensin converting enzyme inhibitor and monitor. 4. Hyperkalemia. Low-potassium diet. Kayexalate p.r.n., . 5. Status post right total knee arthroplasty. 6. Patient is high risk and complex patient. Gen Lam M.D. Dict: 07/12/2018 15:51:02 Trans: 07/13/2018 00:22:40 Processed: 07/13/2018 11:15:54 [place] CC1: Gen Lam M.D. Electronically signed by Julius Kang Conversion Aerial Planting And Cultivation Manager Cerner at 09/22/2022 11:00 AM CDT documented in this encounter Plan of Treatment Not on file documented as of this encounter Visit Diagnoses Not on filedocumented in this encounter
--- OUTSIDE RECORDS SUMMARY | 2024-11-23 14:39 | XMS_ITS | Encounter Summary ---
Author Organization [employer] ([place], [place], [place], [place]) Address [address] [place] [address] Care Team Providers Care Dynamo Repairer Name Role Phone Unavailable Primary Care Provider Unavailabl e Encounter Details Date Type Department Care Team (Late st Contact Info) Description 07/11/2018 Transcribed Document [facility] Radiology 1 [place] [address] Provider, Layla Acosta MD Social [...] On: 07/12/2018 11:46 EDT by NENITA PEREZ, GRAYOSN General Information, PT Visit Type, PT : Initial evaluation Patient Orders : Order Date Order Ordering 07/11/2018 18:24 PT Treatment Instructions Ordered By: FREDEIRC ADAMS MD-ORT 07/11/2018 18:24 PT Evaluation and [...] NENITA PEREZ, PT - 07/12/2018 11:46 EDT [facility] Basic Mobility Turning Over in Bed : None Sit Down On/Stand Up From Chair w/ Arms : A little Move Back Lying to Sitting Side of Bed : None Moving To/From a Bed to Chair : A little Need to Walk in Hospital Room : A little Climbing 3-5 Steps with a Railing : A little [facility] Basic Mobility Raw Score : 20 [facility] Basic Mobility Standardized Score : 47.67 [facility] Basic Mobility CMS 0-100% Score : 35.83 [...] : Intact Response to Pain : Intact NENIAT PEREZ, PT - 07/12/2018 11:46 EDT Cognition [...] NENITA PEREZ PT - 07/12/2018 11:46 EDT Flat Sheet Maker Goals Other PT LTG Grid Goal #1 [...]
--- OUTSIDE RECORDS SUMMARY | 2024-11-23 14:39 | XMS_ITS | Referral Summary ---
Author Organization [employer] ([place], [place], [place], [place]) Address [address] [place] [address] Care Team Providers Care Dental Mold Maker Name Role Phone Unavailable Primary Care [...]
--- OUTSIDE RECORDS SUMMARY | 2024-11-23 14:39 | XMS_ITS | Clinical Summary ---
Author Organization [facility] Address [address] [place] [address] Care Team Providers Care Garbage Truck Helper Name Role Phone Haroldo Key MD Primary [...] (12/17/2022): Added automatically from request for surgery [id number] Carotid stenosis, asymptomatic, right 12/17/2022 Overview (12/17/2022): Added automatically from request for surgery [id number] Hyperkalemia 02/05/2017 Type 2 diabetes mellitus wit h complication, without long-term current use of insulin 02/04/2017 Essential hypertension 02/04/2017 Tobacco abuse 02/04/2017 Left-sided carotid artery disease 01/11/2017 Overview (01/11/2017): Added automatically from request for surgery [id number] Peripheral vascular disease 01/02/2017 Resolved Problems Problem [...] VACCINE 01/30/2025 Medical Devices Implanted Type Area Shag Truck Driver Device Identifier Shelf Expiration Date Model / Serial / Lot Intraoccular Lenses Implant Right Hip Orif Hardware Implant [facility] 1x6cm - [id number] Implanted:Qty: 1 on 02/04/2017 by Maicol Burger MD at [facility] Implant Left: Carotid [employer] [id number] / / [id number] Procedures Procedure Name Priority Date/Time Associated Diagnosis Comments HEMOGLOBIN A1C Routine 02/03/2017 1:39 PM EDT Stenosis of left carotid artery from Last 3 Months or Most Recently Relevant to Health Maintenance Results * (ABNORMAL) Hemoglobin A1c (02/03/2017 1:39 PM EDT) Hemoglobin A1C 6.60(H) 4.80 - 5.60 % 02/03/2017 2:28 PM EDT [facility] Blood Venipuncture / Unknown 02/03/2017 1:39 PM EDT 02/03/2017 1:51 PM EDT Narrative [facility] - 02/03/2017 2:28 PM EDT The [place] [employer] recommends maintenance of Hemoglobin A1C at 7.0% or lower. Goals for Hemoglobin A1C reduction may need to be modified if hypoglycemia is a problem. us Haroldo AGUILAR LAB BLOOD ORDERABLES Final R esult [facility]
[address] [place] [id number], from Last 3 Months or Most Recently Relevant to Health Maintenance Insurance MEDICARE A & B [facility] SUP Advance Directives Documents on File Type Date Recorded Patient Game Tester Expl anation LIVING WILL - SCAN 10/20/2021 5:59 AM FRANCHESCA NG WILL DIRECTIVE 02/04/17 LIVING WILL - SCAN 10/19/2021 8:51 AM FRANCHESCA NG WILL DIRECTIVE 02/04/2017 * Full Code (Latest Code Status on File) Date Activated Date Inactivated Comments 02/04/2017 9:45 AM 02/05/2017 7:28 PM Care Teams Garbage Truck Helper Relationship Specialty Start Date End Date Haroldo Key MD PCP - General Family Medicine 11/11/16
--- OUTSIDE RECORDS SUMMARY | 2024-11-23 14:39 | XMS_ITS | Encounter Summary ---
Author Organization [employer] ([place], [place], [place], [place]) Address [address] [place] [address] Care Team Providers Care Residence Hall Director Name Role Phone Unavailable Primary Care Provider Unavailabl e Encounter Details Date Type Department Care Team (Late st Contact Info) Description 07/11/2018 Transcribed Document [facility] Radiology [address] [place] [address] Provider, Layla Acosta MD Social [...] Conversion Note - [facility] Karla ProviderMD - 07/11/2018 4:23 PM EDT [...]
--- OUTSIDE RECORDS SUMMARY | 2024-11-23 14:39 | XMS_ITS | Encounter Summary ---
Author Organization [employer] ([place], [place], [place], [place]) Address [address] [place] [address] Care Team Providers Care Hogshead Hooper Name Role Phone Unavailable Primary Care Provider Unavailabl e Encounter Details Date Type Department Care Team (Late st Contact Info) Description 07/13/2018 Transcribed Document [facility] Radiology [address] [place] [address] Provider, Layla Acosta MD Social [...]
--- OUTSIDE RECORDS SUMMARY | 2024-11-23 14:39 | XMS_ITS | Encounter Summary ---
Author Organization [employer] ([place], [place], [place], [place]) Address [address] [place] [address] Care Team Providers Care Install And Repair Technician Name Role Phone Unavailable Primary Care Provider Unavailabl e Encounter Details Date Type Department Care Team (Late st Contact Info) Description 07/13/2018 Transcribed Document [facility] Radiology [address] [place] [address] ProviderLayla MD Social History Tobacco [...] Miscellaneous Notes * Cerner Conversion Note - [facility] Karla ProviderMD - 07/13/2018 [...]
--- OUTSIDE RECORDS SUMMARY | 2024-11-23 14:39 | XMS_ITS | Encounter Summary ---
Author Organization [employer] ([place], [place], [place], [place]) Address [address] [place] [address] Care Team Providers Care Brazing Machine Feeder Name Role Phone Unavailable Primary Care Provider Unavailabl e Encounter Details Date Type Department Care Team (Late st Contact Info) Description 07/10/2018 Transcribed Document [facility] Radiology 1 [place] [address] Provider, Layla Acosta MD Social [...] IN OFFICE IN 2-3 WEEKS. 6) An ACSH wrap can be used to cover the [...]
--- OUTSIDE RECORDS SUMMARY | 2024-11-23 14:39 | XMS_ITS | Encounter Summary ---
Author Organization [employer] ([place], [place], [place], [place]) Address [address] [place] [address] Care Team Providers Care Proof Coins Inspector Name Role Phone Unavailable Primary Care Provider Unavailabl e Encounter Details Date Type Department Care Team (Late st Contact Info) Description 07/11/2018 Transcribed Document [facility] Radiology 1 [place] [address] ProviderLayla MD Social History Tobacco [...] Notes * Cerner Conversion Note - [facility] Karla Rojo MD - 07/11/2018 3:59 PM EDT Event Note Entered On: 07/11/2018 15:00 EDT Performed On: 07/11/2018 14:59 EDT by RUBY ARIZA RN Event Note Event Date/Time : 07/11/2018 13:40 EDT Description of Event : PT TOLERATED TEST DOSE OF CEFAZOLIN WITHOUT REACTION. RUBY ARIZA RN - 07/11/2018 14:59 EDT documented in this encounter Plan of Treatment Not on file documented as of this encounter Visit Diagnoses Not on filedocumented in this encounter
--- OUTSIDE RECORDS SUMMARY | 2024-11-23 14:39 | XMS_ITS | Encounter Summary ---
Author Organization [employer] ([place], [place], [place]) Address [address] [place] [address] Care Team Providers Care Nuclear Reactor Technician Name Role Phone Unavailable Primary Care Provider Unavailabl e Encounter Details Date Type Department Care Team (Late st Contact Info) Description 07/11/2018 Transcribed Document [facility] Radiology 1 [place] [address] Provider, Layla Acosta MD [...] Gudino M.D. Electronically signed by Jorge Luis [facility] Conversion Care Connector Cerner at 09/22/2022 11:00 AM CDT documented in this encounter Plan of Treatment Not on file documented as of this encounter Visit Diagnoses Not on filedocumented in this encounter
--- OUTSIDE RECORDS SUMMARY | 2024-11-23 14:39 | XMS_ITS | Encounter Summary ---
Author Organization [employer] ([place], [place], [place]) Address [address] [place] [address] Care Team Providers Care Court Reporter Name Role Phone Unavailable Primary Care Provider Unavailabl e Encounter Details Date Type Department Care Team (Late st Contact Info) Description 07/11/2018 Transcribed Document [facility] Radiology 1 [place] [address] Provider, Layla Acosta MD Social [...] Conversion Note - [facility] Karla ProviderMD - 07/11/2018 3:47 PM EDT [facility] Main OR PACU Summary Primary Physician: FREDERIC ADAMS MD-ORT Finalized Date/Time: 07/11/18 18:08:25 Pt. Name: MACI FLOROrly Royal/Sex: 1945 Female Med Rec #: [id number] Physician: FREDERIC ADAMS MD-ORT Financial #: [id number] Pt. Type: O Room/Bed: 508/1 Admit/Disch: 07/11/18 04:54:00 - Institution: [facility] OR PACU Case Times Entry 1 In PACU I 07/11/18 16:03:00 Ready for PACU 07/11/18 17:03:00 Discharge Discharge from PACU 07/11/18 17:43:00 I Last Modified By: Mayra Cunningham Rn Patient Care Bedside 07/11/18 18:08:09 [facility] Main OR PACU Case Times Audit 07/11/18 18:08:09 Orchestra Conductor: BARRERA Modifier: BARRERA <+> 1 Ready for [...] Cunningham Rn Patient Care Bedside 07/11/18 18:08 Electronically signed by Jorge Luis [facility] Conversion Telegraph Service Clerk Cerner at 09/22/2022 11:00 AM CDT documented in this encounter Plan of Treatment Not on file documented as of this encounter Visit Diagnoses Not on filedocumented in this encounter
--- OUTSIDE RECORDS SUMMARY | 2024-11-23 14:39 | XMS_ITS | Encounter Summary ---
Author Organization [employer] ([place], [place], [place]) Address [address] [place] [address] Care Team Providers Care Staff Nurse Anesthetist Name Role Phone Unavailable Primary Care Provider Unavailabl e Encounter Details Date Type Department Care Team (Late st Contact Info) Description 07/30/2019 Transcribed Document [facility] 1 [place] [address] ProviderLayla MD Social History Tobacco [...] Miscellaneous Notes * Cerner Conversion Note - [facility] Karla Rojo MD - 07/30/2019 11:42 AM EDT Orthopedic Nurse Navigator Entered On: 07/30/2019 10:42 EDT Performed On: 07/30/2019 10:42 EDT by Marion Farias Nurse core shaper sides Nurse Navigator Assessment Joint Navigator Assessment Note : 1 year post op surveys. Marion Farias Nurse RN - 07/30/2019 10:42 EDT documented in this encounter Plan of Treatment Not on file documented as of this encounter Visit Diagnoses Not on filedocumented in this encounter
--- OUTSIDE RECORDS SUMMARY | 2024-11-23 14:39 | XMS_ITS | Encounter Summary ---
Author Organization [employer] ([place], [place], [place]) Address [address] [place] [address] Care Team Providers Care Back Order Clerk Name Role Phone Unavailable Primary Care Provider Unavailabl e Encounter Details Date Type Department Care Team (Late st Contact Info) Description 07/11/2018 Transcribed Document [facility] Radiology 1 [place] [address] ProviderLayla MD Social History Tobacco [...] Miscellaneous Notes * Cerner Conversion Note - [facility] Karla ProviderMD - 07/11/2018 11:11 PM EDT [...]
--- OUTSIDE RECORDS SUMMARY | 2024-11-23 14:39 | XMS_ITS | Encounter Summary ---
Author Organization [employer] ([place], [place], [place]) Address [address] [place] [address] Care Team Providers Care Streets And Buildings Decorator Name Role Phone Unavailable Primary Care Provider Unavailabl e Encounter Details Date Type Department Care Team (Late st Contact Info) Description 07/18/2018 Transcribed Document [facility] 1 [place] [address] Provider, Layla Acosta MD Social [...] [ ] Surgical procedure/ Evaluation [ ] CDS/Engine Builder Signature: Edgar Horne Phone #: _[phone]__ Date/Time: _07/18/2018 11:53 AM_ This is a permanent part of the Medical Record documented in this encounter Plan of Treatment Not on file documented as of this encounter Visit Diagnoses Not on filedocumented in this encounter
--- OUTSIDE RECORDS SUMMARY | 2024-11-23 14:39 | XMS_ITS | Clinical Summary ---
Author Organization [facility] Address [address] [place] [address] Care Team Providers Care Before And After School Daycare Worker Name Role Phone Haroldo Key MD Primary Care Provider [phone] Allergies Active Allergy Reactions Criticality Noted Date [...] How often do you attend chur or faith services? Never 07/25/2024 Do you belong to any clubs o r organizations such as confucianist groups, unions, fraternal or athletic groups, or [...] more drinks on one occasion? Never 07/25/2024 [facility] - Occupational Stress [...] any time in the past 12 m [facility], were you homeless or living in a halfway (including now)? No 07/25/2024 Utilities Answer Date Recorded In the past 12 months has e e-contratos, gas, oil, or water [employer] threatened to shut off services in your [...] Visit [place] [facility] [address] [place] [address] Lucila Johnson, WASHERY ENGINEER [address] [place] [address] Health Maintenance Due Date Last Done Comments [facility]-Bone Density Scan 1945 [facility]-Depression Screening 1945 [facility]-Medicare Annual Wellness (AWV) 1945 [facility]-/Child/Adol SDOH Screenings 1945 Diabetes: Dental Exam 1955 [facility]-Pneumococcal Vaccine: 50 + Years (1 of 2 - PCV) 1965 [facility]-Zoster Vaccines (1 of 2) 1996 [facility]-RSV Vaccine: 60+ Years o r (1 - 1-dose 75+ series) 2021 [id number] Vaccine (1 - 20 24-25 season) 2024 [...] 5.7(H) <5.7 % 07/23/2024 8:45 AM EDT [facility] Blood Venous blood specimen / Unknown Venipuncture / Unknown 07/23/2024 4:28 AM EDT 07/23/2024 4:31 AM EDT Narrative [facility] - 07/23/2024 8:45 AM EDT HA1C Interpretive Data: Diagnosis of Diabetes: Diabetic > or = 6.5% Pre-diabetic 5.7 to 6.4% Non-diabetic < or = 5.6% Glycemic Targets for Type I and Type II Diabetics: Non- Adults <7.0% Adults <6.0% Children and Adolescents <7.5% Source: [place] [employer]. Standards of medical care in diabetes,2017. Diabetes Care.2017:40 (suppl 1):S1-S135. HbA1c assay performed by an ion-exchange chromatography method that is certified traceable to the DCCT. us Timoteo Zuluaga MD LAB BLOOD ORDERABLES Final Re sult [facility] [address] [place] [address] * Hepatitis C Antibody - ED (07/23/2024 4:22 AM EDT) [facility] Hepatitis C Antibody Negative Negative 07/23/2024 5:56 AM EDT [facility] Blood Venous blood specimen / Unknown Venipuncture / Unknown 07/23/2024 4:22 AM EDT 07/23/2024 4:32 AM EDT us Timoteo Zuluaga MD LAB BLOOD ORDERABLES Final Re sult Performing Organization Address City/[facility] de Phone Number HEALTHCARE [facility] [address] [place] [address] from Last 3 Months or Most Recently Relevant to Health Maintenance Insurance [facility] [place]ICAID-[place] MEDICARE Advance Directives Documents on File Type Date Recorded Patient Candle Molder Hand Expl anation Advance Directives and Livin g Will 07/28/2024 12:52 PM * DNR/DNI (Latest Code Status on File) Date Activated Date Inactivated Comments 07/23/2024 8:59 AM 07/27/2024 2:32 PM Question Answer Comments DNR determined on/before admission date? Yes Care Teams Before And After School Daycare Worker Relationship Specialty Start Date End Date Haroldo Key MD [address] [facility] [place] [address] PCP - General 09/12/20
--- OUTSIDE RECORDS SUMMARY | 2024-11-23 14:39 | XMS_ITS | Encounter Summary ---
Author Organization [employer] ([place], [place], [place], [place]) Address [address] [place] [address] Care Team Providers Care Parking Attendant Name Role Phone Unavailable Primary Care Provider Unavailabl e Encounter Details Date Type Department Care Team (Late st Contact Info) Description 07/11/2018 Transcribed Document [facility] Radiology 1 [place] [address] Provider, Layla Acosta MD Social [...] : Supervision or set-up Toileting Device : [id number]-[id number] commode Toilet Transfer Assist Level : Supervision or set-up Toilet Transfer Device : Belt, gait, Walker, rolling, Riezc-py-bto commode JACK LUCIO OTR/Carolyn 07/12/2018 11:48 EDT [...]
--- OUTSIDE RECORDS SUMMARY | 2024-11-23 14:39 | XMS_ITS | Encounter Summary ---
Author Organization [employer] ([place], [place], [place], [place]) Address [address] [place] [address] Care Team Providers Care Accounts Payable Lead Name Role Phone Unavailable Primary Care Provider Unavailabl e Encounter Details Date Type Department Care Team (Late st Contact Info) Description 07/11/2018 Transcribed Document [facility] Radiology [address] [place] [address] Provider, Layla Acosta MD Social [...] 07/11/2018 11:08 EDT by Goldie Dexter Patient Black Top Paver Operator Height and Weight, Clinical Dosing Height Source : Stated Height Entry Format : Jay Height, Feet : 5 ft(Converted to: 152 cm, 60 Inch) Height, Inches : 0 Inch(Converted to: 0 ft 0 Inch, 0.00 cm) Clinical Height : 152.4 cm Weight Source : Standing scale Weight Entry Format : Jay Clinical Dosing Weight : 73.09 kg Weight, Pounds : 160.8 lb Body Surface Area (BSA) : 1.7 m2 Body Mass Index : 31.5 kg/m2 (HI) [place] Body Weight : 45 kg Goldie Dexter Patient Black Top Paver Operator - 07/11/2018 11:08 EDT documented in this encounter Plan of Treatment Not on file documented as of this encounter Visit Diagnoses Not on filedocumented in this encounter
--- OUTSIDE RECORDS SUMMARY | 2024-11-23 14:39 | XMS_ITS | Encounter Summary ---
Author Organization [employer] ([place], [place], [place], [place]) Address [address] [place] [address] Care Team Providers Care Special Order Jeweler Name Role Phone Unavailable Primary Care Provider Unavailabl e Encounter Details Date Type Department Care Team (Late st Contact Info) Description 07/11/2018 Transcribed Document [facility] Radiology [address] [place] [address] ProviderLayla MD Social History Tobacco [...]
--- OUTSIDE RECORDS SUMMARY | 2024-11-23 14:39 | XMS_ITS | Encounter Summary ---
Author Organization [employer] ([place], [place], [place]) Address [address] [place] [address] Care Team Providers Care Plastics Sheet Finishing Press Operator Name Role Phone Unavailable Primary Care Provider Unavailabl e Encounter Details Date Type Department Care Team (Late st Contact Info) Description 07/11/2018 Transcribed Document [facility] Radiology [address] [place] [address] Provider, Layla Acosta MD Social [...] 20:31 EDT Electronically signed by Jorge Luis [facility] Conversion Print Shop Helper Cerner at 09/22/2022 11:00 AM CDT documented in this encounter Plan of Treatment Not on file documented as of this encounter Visit Diagnoses Not on filedocumented in this encounter
--- OUTSIDE RECORDS SUMMARY | 2024-11-23 14:39 | XMS_ITS | Encounter Summary ---
Author Organization [employer] ([place], [place], [place], [place]) Address [address] [place] [address] Care Team Providers Care Senior Bioinformatics Scientist Name Role Phone Unavailable Primary Care Provider Unavailabl e Encounter Details Date Type Department Care Team (Late st Contact Info) Description 06/27/2018 Transcribed Document [facility] [address] [place] [address] ProviderLayla MD Social History Tobacco [...] Miscellaneous Notes * Cerner Conversion Note - [facility] Karla Rojo MD - 06/27/2018 8:41 PM EST Orthopedic Nurse Navigator Entered On: 07/10/2018 6:52 EDT Performed On: 06/27/2018 19:41 EST by Carlyn Temple supervisor accounts receivable Nurse Navigator Assessment Attended Joint Academy : Yes Joint AcademyType : Online Joint Academy Date : 06/27/2018 EST Carlyn Temple, RN - 07/10/2018 6:52 EDT Electronically signed by Layla Kang Conversion Certified Social Workers In Health Care Cerner at 09/22/2022 11:00 AM CDT documented in this encounter Plan of Treatment Not on file documented as of this encounter Visit Diagnoses Not on filedocumented in this encounter
--- OUTSIDE RECORDS SUMMARY | 2024-11-23 14:39 | XMS_ITS | Encounter Summary ---
Author Organization [employer] ([place], [place], [place]) Address [address] [place] [address] Care Team Providers Care Healthcare Financial Analyst Name Role Phone Unavailable Primary Care Provider Unavailabl e Encounter Details Date Type Department Care Team (Late st Contact Info) Description 07/11/2018 Transcribed Document [facility] Radiology [address] [place] [address] Provider, Layla Acosta MD Social [...] Obtained From : Patient Primary Language : Irish Preferred Communication Mode : Verbal Communication Barrier [...] on per policy, Fall Injury Intervention Refused ONELI Hx Falls Immediate/Within 3 Months : No Oneil Secondary Diagnosis : Yes ONEIL Use of Ambulatory Aid : Bed rest/Nurse assist ONEIL IV Therapy or IV Access : Yes Ir[place]a Gait/Transferring : Weak Oneil Mental Status : Oriented to own ability Oneil Fall Risk Score : 45 ONEIL Fall Scale Risk Level : 25-45 Medium Risk Carmel Fall Interventions : Adequate lighting, Bed in [...] Safety : Verbalizes understanding, Returns demonstration Aline Faiban Rn - 07/11/2018 21:44 EDT Barriers to Learning : None evident Individuals Taught : Patient Readiness to Learn : Cooperative Baseline Knowledge of Topic : Good Teaching Method : Gambreler Learning Style Preferences Family : Printed materials, [...] Source : Stated Height Entry Format : [place] Height, Feet : 5 ft(Converted to: 152 cm, 60 Inch) Height, Inches : 0 Inch(Converted to: 0 ft 0 Inch, 0.00 cm) Clinical Height : 152.4 cm Weight Source : Standing scale Weight Entry Format : Cow[place] Clinical Dosing Weight : 73.09 kg Weight, Pounds : 160.8 lb Body Surface Area (BSA) : 1.7 m2 Body Mass Index : 31.5 kg/m2 (HI) [place] Body Weight : 45 kg Aline Fabian [...]
--- OUTSIDE RECORDS SUMMARY | 2024-11-23 14:39 | XMS_ITS | Encounter Summary ---
Author Organization [employer] ([place], [place], [place], [place]) Address [address] [place] [address] Care Team Providers Care Sales Systems Engineer Name Role Phone Unavailable Primary Care Provider Unavailabl e Encounter Details Date Type Department Care Team (Late st Contact Info) Description 07/11/2018 Transcribed Document [facility] Radiology [address] [place] [address] Provider, Layla Acosta MD Social [...] Miscellaneous Notes * Cerner Conversion Note - [facility] Karla ProviderMD - 07/11/2018 7:23 PM EDT Care Management Assessment/Plan Entered On: 07/12/2018 18:02 EDT Performed On: 07/12/2018 18:00 EDT by Jessica Cote, Case Management-Pharmacy Account Director Care Management Note Care Management Note : pt admitted for tka, pt has her walker, pt has cpm in room, [facility]. pt stated she will have assistance at home. referral sent via [employer] Documentation Status Complete : Yes Jessica Cote Case Management-Pharmacy Account Director - 07/12/2018 18:00 EDT Discharge Planning Details Persons Assisting Patient at Home : Spouse Jessica Cote, Case Management-Pharmacy Account Director - 07/12/2018 18:00 EDT Info/List/Choices Provided Patient Offered Choice/Affiliations Explained : Yes List/Info Provided Pt/Fam/Support Person : Home health Jessica Cote, Case Management-Pharmacy Account Director - 07/12/2018 18:00 EDT Final Discharge Disposition Note-CM Discharge To Care Management : Home Health Services (Related/SOC within 3 days)-06 Name of Receiving Facility/Provider-CM : [facility] for cpm Jessica Cote, Case Management-Pharmacy Account Director - 07/12/2018 18:00 EDT documented in this encounter Plan of Treatment Not on file documented as of this encounter Visit Diagnoses Not on filedocumented in this encounter
--- OUTSIDE RECORDS SUMMARY | 2024-11-23 14:39 | XMS_ITS | Encounter Summary ---
Author Organization [employer] ([place], [place], [place], [place]) Address [address] [place] [address] Care Team Providers Care Machine Stemmer Name Role Phone Unavailable Primary Care Provider Unavailabl e Encounter Details Date Type Department Care Team (Late st Contact Info) Description 07/11/2018 Transcribed Document [facility] Radiology [address] [place] [address] Provider, Layla Acosta MD Social [...] Miscellaneous Notes * Cerner Conversion Note - [facility] Karla ProviderMD - 07/11/2018 3:47 PM EDT [facility] Main OR PreOp Summary Primary Physician: FREDERIC ADAMS MD-ORT Finalized Date/Time: 07/11/18 15:05:11 Pt. Name: MACI FLOROrly Royal/Sex: 1945 Female Med Rec #: [id number] Physician: FREDERIC ADAMS MD-ORT Financial #: [id number] Pt. Type: O Room/Bed: [facility]/ Admit/Disch: 07/11/18 04:54:00 - [place] [facility] [place] Case Times Entry 1 In Preop 07/11/18 10:40:00 Ready for Holding n/a Room Patient Ready for 07/11/18 13:24:00 Surgery Patient Out of Preop 07/11/18 14:09:00 Patient Out of n/a Holding Room Last Modified By: IFRAH CLAIRE 07/11/18 15:05:10 [facility] PreOp Case Times Audit 07/11/18 15:05:10 Software Specialist: [email or web address] Modifier: [email or web address] <+> 1 Patient Out of Preop 07/11/18 13:45:10 Software Specialist: [id number] Modifier: [email or web address] <+> 1 Patient Ready for Surgery Finalized By: IFRAH CLAIRE Document Signatures Signed By: IFRAH CLAIRE 07/11/18 15:05 Electronically signed by Jorge Luis [facility] Conversion Bottom Cementer Cerner at 09/22/2022 11:00 AM CDT documented in this encounter Plan of Treatment Not on file documented as of this encounter Visit Diagnoses Not on filedocumented in this encounter
--- OUTSIDE RECORDS SUMMARY | 2024-11-23 14:39 | XMS_ITS | Encounter Summary ---
Author Organization [employer] ([place], [place], [place], [place]) Address [address] [place] [address] Care Team Providers Care Technical Proposal Writer Name Role Phone Unavailable Primary Care Provider Unavailabl e Encounter Details Date Type Department Care Team (Late st Contact Info) Description 07/11/2018 Transcribed Document [facility] Radiology 1 [place] [address] Provider, Layla Acosta MD Social [...] Miscellaneous Notes * Cerner Conversion Note - [facility] Karla ProviderMD - 07/11/2018 3:47 PM EDT [facility] Main OR IntraOp Summary Primary Physician: FREDERIC ADAMS MD-ORT Finalized Date/Time: 07/11/18 16:06:00 Pt. Name: FLOR LUX JORDEN Royal/Sex: 1945 Female Med Rec #: [id number] Physician: FREDERIC ADAMS MD-ORT Financial #: [id number] Pt. Type: O Room/Bed: [facility] Admit/Disch: 07/11/18 04:54:00 - Institution: [facility] IntraOp Case Attendance Entry 1 Entry 2 Entry 3 Case Attendee FREDERIC ADAMS NAPIER, CYNTHIA A, CRNA Bland, Jordyn A RN -ORT Role Performed Surgeon/Proceduralist, TESTBOARD OPERATOR/Nurse Excelsior Machine Operator Revenue Officer, First First Time In 07/11/18 14:44:00 07/11/18 [...] Attendee RUBEN NUNEZ Letitia, ST Combs, Leslie, Rv Mechanic Role Performed Scrub, First Scrub, Second Assistive [...] ATTENDEE ONUR REYES MD Role Performed Physician speech therapy assistant Vendor Anesthesiologist Time In 07/11/18 14:55:00 [...] 11 Case Attendee Soni Jose, BREEZY ZHENG, TESTBOARD OPERATOR Role Performed Revenue Officer, First TESTBOARD OPERATOR/Nurse Excelsior Machine Operator Time In 07/11/18 15:10:00 07/11/18 15:39:00 Time Out 07/11/18 15:36:00 07/11/18 16:01:00 Procedure Knee Total Joint Knee Total Joint Replacement Replacement Other Attendee Superficial Wound Closed By: Last Modified By: Sigrid Fonseca RN Bland, Jordyn A, RN 07/11/18 16:05:53 07/11/18 16:05:53 [facility] IntraOp Case Attendance Audit 07/11/18 16:05:53 Marketing Operations Associate: MICHAEL Modifier: MICHAEL 1 <+> Time Out [...] Procedure Knee Total Joint Replacement 07/11/18 15:54:27 Marketing Operations Associate: MICHAEL Modifier: MICHAEL 9 <+> Time Out 9 <*> Procedure Knee Total Joint Replacement <+> 11 Case Attendee <+> 11 Role Performed <+> 11 Time In <+> 11 Procedure 07/11/18 15:36:52 Marketing Operations Associate: MICHAEL Modifier: IMCHAEL 10 <+> Time Out 10 <*> Procedure Knee Total Joint Replacement 07/11/18 15:18:09 Marketing Operations Associate: MICHAEL Modifier: MICHAEL <+> 10 Case Attendee <+> 10 Role Performed <+> 10 Time In <+> 10 Procedure 07/11/18 15:02:08 Marketing Operations Associate: MICHAEL Modifier: JORDYNBLAND 1 <*> Time In 07/11/18 14:15:00 1 <*> Procedure Knee Total Joint Replacement 07/11/18 15:01:47 Marketing Operations Associate: MICHAEL Modifier: MICHAEL <+> 9 Case Attendee <+> 9 Role Performed <+> 9 Time In <+> 9 Procedure 07/11/18 14:57:15 Marketing Operations Associate: MICHAEL Modifier: MICHAEL 1 <*> Procedure Knee [...] [facility] IntraOp Case Times Audit 07/11/18 16:05:47 Marketing Operations Associate: MICHAEL Modifier: MICHAEL <+> 1 Out Room Time <+> 1 Stop Time 07/11/18 15:58:06 Marketing Operations Associate: MICHAEL Modifier: MICHAEL 1 <*> Stop Time 07/11/18 15:59:00 07/11/18 15:57:03 Marketing Operations Associate: MICHAEL Modifier: HAFSAAND <+> 1 Stop Time 07/11/18 14:47:11 Marketing Operations Associate: MICHAEL Modifier: MICHAEL <+> 1 Start Time [...] [facility] IntraOp Counts Verification Audit 07/11/18 15:36:24 Marketing Operations Associate: MICHAEL Modifier: MICHAEL <+> 2 Procedure <+> [...] [facility] IntraOp Counts Final Audit 07/11/18 15:54:33 Marketing Operations Associate: MICHAEL Modifier: MICHAEL 1 <*> Procedure Knee [...] specialty) Patient Transport STEWART SAWYER, Accompanied by Marian REYNAGA Jordyn A, RN Last Modified By: [...] RN 07/11/18 14:39:49 [facility] IntraOp General Case Cabin Supervisor 1 Case Information OR OR 05 [facility] Case Level 1 Room Verified Yes Wound [...] BRG VANGRD TY TIB I-BEAM FIX Identification [id number] BIOMET [id number] Description Implant Quantity 2 1 1 Implant Site RIGHT KNEE RIGHT KNEE RIGHT KNEE Implant Identification Model Number Implant Identification Serial Number Implant [id number] Identification Lot Number Implant Dj Surg:Encore Biomet Biomet Identification Med:Edmund Ship Liner Name: Implant 600-15-000 [id number] Identification Catalog Number Implant Size Implant Has an Yes Yes Yes Expiration Date Implant Expiration 09/15/19 05/16/23 03/06/28 Date Wasted Radioactive Material Time Implanted Tissue Implant Continue for Tissue Implant Documentation Tissue Identification Number Graft Prep Per Ship Liner Instructions: Tissue Preparation Method: Reconstitution Solution: Reconstitution Solution Lot Number Reconstitution Solution Expiration Date: Thawing Solution Thawing Solution Lot Number Thawing Solution Expiration Date Preparation Materials, Other Preparation Materials, Other Lot Number Preparation Materials, Other Expiration Date Tissue Prepared/Processed By Ship Liner Paperwork Completed Implant Type Comment Last Modified By: Sigrid Fonseca RN Bland, Jordyn A, RN Bland, Jordyn A, RN 07/11/18 15:32:02 07/11/18 15:32:02 07/11/18 15:32:02 Entry 4 Entry 5 Type Implant (Synthetic) Implant (Synthetic) Implant Log Implant Type Hardware Hardware Tissue Implant Type Implant COMP FEM CR INTLOK VGRD PATELLA THIN Identification 62.5 [id number] Description Implant Quantity 1 1 Implant Site RIGHT KNEE RIGHT KNEE Implant Identification Model Number Implant Identification Serial Number Implant [id number] Identification Lot Number Implant Biomet Biomet Identification Ship Liner Name: Implant [id number] Identification Catalog Number Implant Size Implant Has an Yes Yes Expiration Date Implant Expiration 05/18/28 05/09/23 Date Wasted Radioactive Material Time Implanted Tissue Implant Continue for Tissue Implant Documentation Tissue Identification Number Graft Prep Per Ship Liner Instructions: Tissue Preparation Method: Reconstitution Solution: Reconstitution Solution Lot Number Reconstitution Solution Expiration Date: Thawing Solution Thawing Solution Lot Number Thawing Solution Expiration Date Preparation Materials, Other Preparation Materials, Other Lot Number Preparation Materials, Other Expiration Date Tissue Prepared/Processed By Ship Liner Paperwork Completed Implant Type Comment Last Modified By: Sigrid Fonseca RN Bland, Jordyn A, RN 07/11/18 15:32:02 07/11/18 15:32:02 [facility] IntraOp Implant Log Audit 07/11/18 15:32:02 Marketing Operations Associate: MICHAEL Modifier: MICHAEL 1 <*> Implant Identification Description CEMENT BONE [place] HV [id number] 1 <*> Implant Identification Lot Number [id number] 1 <*> Implant Identification Ship Liner Dj Surg:Encore Med:[place] Name: 1 <*> Implant Expiration Date 09/15/19 1 <*> Implant Site RIGHT KNEE 1 <*> Implant Quantity 2 1 <*> Implant Identification Catalog [id number] Number 1 <*> Implant Type Bone Cement 1 <*> Implant Has an Expiration Date Yes 1 <*> Type Implant (Synthetic) 2 <*> Implant Identification Description COMP TIB BRG VANGRD [id number] 2 <*> Implant Identification Ship Liner Biomet Name: 2 <*> Implant Expiration Date 05/16/23 2 <*> Implant Site RIGHT KNEE 2 <*> Implant Quantity 1 2 <*> Implant Identification Catalog [id number] Number 2 <*> Implant Type Hardware 2 <*> Implant Has an Expiration Date Yes 2 <*> Type Implant (Synthetic) 3 <*> Implant Identification Description TY TIB I-BEAM FIX BIOMET [id number] 3 <*> Implant Identification Ship Liner Biomet Name: 3 <*> Implant Expiration Date 03/06/28 3 <*> Implant Site RIGHT KNEE 3 <*> Implant Quantity 1 3 <*> Implant Identification Catalog [id number] Number 3 <*> Implant Type Hardware 3 <*> Implant Has an Expiration Date Yes 3 <*> Type Implant (Synthetic) 4 <+> Implant Identification Description 4 <+> Implant Identification Ship Liner Name: 4 <+> Implant Expiration Date 4 <*> Implant Site RIGHT KNEE 4 <*> Implant Quantity 1 4 <+> Implant Identification Catalog Number 4 <*> Implant Type Hardware 4 <*> Implant Has an Expiration Date Yes 4 <*> Type Implant (Synthetic) 5 <*> Implant Identification Description COMP FEM CR INTLOK VGRD 62.5 [id number] <+> Implant Identification Lot Number 5 <*> Implant Identification Ship Liner Biomet Name: 5 <*> Implant Expiration Date 05/18/28 5 <*> Implant Site RIGHT KNEE 5 <*> Implant Quantity 1 5 <*> Implant Identification Catalog [id number] Number 5 <*> Implant Type Hardware 5 <*> Implant Has an Expiration Date Yes 5 <*> Type Implant (Synthetic) 6 <-> Implant Identification Description PATELLA THIN [id number] 6 <-> Implant Identification Lot Number [id number] <-> Implant Identification Ship Liner Biomet Name: 6 <-> Implant Expiration Date 05/09/23 6 <-> Implant Site RIGHT KNEE 6 <-> Implant Quantity 1 6 <-> Implant Identification Catalog [id number] Number 6 <-> Implant Type Hardware 6 <-> Implant Has an Expiration Date Yes 6 <-> Type Implant (Synthetic) 07/11/18 15:30:47 Marketing Operations Associate: MICHAEL Modifier: JORDYNBLAND <+> 2 Implant Identification Description <+> 2 Implant Identification Ship Liner Name: 07/11/18 15:29:37 Marketing Operations Associate: MICHAEL Modifier: MICHAEL <+> 3 Implant Identification Description <+> 3 Implant Identification Ship Liner Name: <+> 3 Implant Expiration Date <+> 3 Implant Identification Catalog Number 6 <*> Implant Identification Description PATELLA THIN [id number] 6 <+> Implant Site 07/11/18 15:22:42 Marketing Operations Associate: MICHAEL Modifier: JORDYNBLAND <+> 5 Implant Identification Description <+> 5 Implant Identification Ship Liner Name: <+> 5 Implant Expiration Date <+> 5 Implant Identification Catalog Number 07/11/18 15:20:08 Marketing Operations Associate: MICHAEL Modifier: MICHAEL <+> 6 Implant Identification Description <+> 6 Implant Identification Lot Number <+> 6 Implant Identification Ship Liner Name: <+> 6 Implant Expiration Date <+> 6 Implant Quantity <+> 6 Implant Identification Catalog Number <+> 6 Implant Type <+> 6 Implant Has an Expiration Date <+> 6 Type 07/11/18 15:16:19 Marketing Operations Associate: MICHAEL Modifier: MICHAEL <+> 1 Implant Identification Description <+> 1 Implant Identification Lot Number <+> 1 Implant Identification Ship Liner Name: <+> 1 Implant Expiration Date <+> [...] - vancomycin 1Gm vial - 1000MG/10 ML [id number] Combo Med List Time Administered Route of [...] Positioned By STEWART SAWYER CRNA, Lucretia Calvert, Rv Mechanic, Sigrid Fonseca RN, RUBEN NUNEZ Position Verified [...] Intra Op Sign Out Audit 07/11/18 16:05:52 Marketing Operations Associate: MICHAEL Modifier: MICHAEL <+> 1 RN Sign [...] [facility] IntraOp Surgical Procedures Audit 07/11/18 15:58:11 Marketing Operations Associate: MICHAEL Modifier: JORDYNBLAND 1 <*> Procedure Knee Total Joint Replacement 1 <*> Stop 07/11/18 15:59:00 07/11/18 15:57:05 Marketing Operations Associate: MICHAEL Modifier: HAFSAAND <+> 1 Stop SJE [...] Padded Under Cuff Applied By Calvert, Lucretia, Rv Mechanic Removed By RAMOS ALBA, PAC Times Start Time 07/11/18 14:46:00 Stop Time 07/11/18 15:54:00 Last Modified By: Sigrid Fonseca RN 07/11/18 15:54:51 JN IntraOp Tourniquet Audit 07/11/18 15:54:51 Marketing Operations Associate: MICHAEL Modifier: MICHAEL <+> 1 Stop Time Case Comments <None> Finalized By: Sigrid Fonseca, RN Document Signatures Signed By: Sigrid Fonseca RN 07/11/18 16:06 documented in this encounter Plan of Treatment Not on file documented as of this encounter Visit Diagnoses Not on filedocumented in this encounter
--- OUTSIDE RECORDS SUMMARY | 2024-11-23 14:39 | XMS_ITS | Encounter Summary ---
Author Organization [employer] ([place], [place], [place], [place]) Address [address] [place] [address] Care Team Providers Care Pattern Maker Name Role Phone Unavailable Primary Care Provider Unavailabl e Encounter Details Date Type Department Care Team (Late st Contact Info) Description 07/13/2018 Transcribed Document [facility] Radiology [address] [place] [address] Provider, Layla Acosta MD Social [...] [facility] Karla Rojo MD - 07/13/2018 11:47 AM EDT Nursing Discharge Summary Entered On: 07/13/2018 10:48 EDT Performed On: 07/13/2018 10:47 EDT by uLcille Azevedo RN Discharge Documentation Discharge Date/Time : [...]
--- OUTSIDE RECORDS SUMMARY | 2024-11-23 14:39 | XMS_ITS | Encounter Summary ---
Author Organization [employer] ([place], [place], [place], [place]) Address [address] [place] [address] Care Team Providers Care Hot Car Operator Name Role Phone Unavailable Primary Care Provider Unavailabl e Encounter Details Date Type Department Care Team (Late st Contact Info) Description 07/11/2018 Transcribed Document [facility] 1 [place] [address] Provider, Layla Acosta MD Social [...] Source : Stated Height Entry Format : Keeler Height, Feet : 5 ft(Converted to: 152 cm, 60 Inch) Height, Inches : 0 Inch(Converted to: 0 ft 0 Inch, 0.00 cm) Clinical Height : 152.4 cm Weight Source : Standing scale Weight Entry Format : Keeler Clinical Dosing Weight : 73.09 kg Weight, Pounds : 160.8 lb Body Surface Area (BSA) : 1.7 m2 Body Mass Index : 31.5 kg/m2 (HI) [place] Body Weight : 45 kg RUBY ARIZA [...] Obtained From : Patient Primary Language : Chadian Preferred Communication Mode : Verbal Communication Barrier [...] Level : 46 or > High Risk Ryan Fall Interventions : Adequate lighting, Bed in [...] the text rendition version of the form. Otis Coma Kirstin Best Motor Response : Obey commands Kirstin Best Verbal Response : Oriented Kirstin Eye Opening Response : Spontaneous Kirstin Coma Score : 15 RUBY ARIZA RN - 07/11/2018 13:16 EDT documented in this encounter Plan of Treatment Not on file documented as of this encounter Visit Diagnoses Not on filedocumented in this encounter
--- OUTSIDE RECORDS SUMMARY | 2024-11-23 14:39 | XMS_ITS | Encounter Summary ---
Author Organization [employer] ([place], [place], [place], [place]) Address [address] [place] [address] Care Team Providers Care Health Care Law Specialist Name Role Phone Unavailable Primary Care Provider Unavailabl e Encounter Details Date Type Department Care Team (Late st Contact Info) Description 07/30/2019 Transcribed Document [facility] Radiology [address] [place] [address] Provider, Layla Acosta MD Social [...] from sitting : None 7. Bending to floor/case picker an object : None WINSOME PATEL [...]
--- OUTSIDE RECORDS SUMMARY | 2024-11-23 14:39 | XMS_ITS | Encounter Summary ---
Author Organization [employer] ([place], [place], [place], [place]) Address [address] [place] [address] Care Team Providers Care Pumper Gauger Name Role Phone Unavailable Primary Care Provider Unavailabl e Encounter Details Date Type Department Care Team (Late st Contact Info) Description 06/30/2018 Transcribed Document [facility] Radiology 1 [place] [address] Provider, Layla Acosta MD Social [...] Source : Stated Height Entry Format : Menard Height, Feet : 5 ft(Converted to: 152 cm, 60 Inch) Height, Inches : 0 Inch(Converted to: 0 ft 0 Inch, 0.00 cm) Clinical Height : 152.4 cm Weight Source : Standing scale Weight Entry Format : Menard Clinical Dosing Weight : 79.55 kg Weight, Pounds : 175 lb Body Surface Area (BSA) : 1.77 m2 Body Mass Index : 34.3 kg/m2 (HI) [place] Body Weight : 45 kg KENNY BECERRA [...] #2 Relationship : - Primary Language : Sinhala Preferred Communication Mode : Verbal Communication Barrier [...]
--- OUTSIDE RECORDS SUMMARY | 2024-11-23 14:39 | XMS_ITS | Encounter Summary ---
Author Organization [employer] ([place], [place], [place], [place]) Address [address] [place] [address] Care Team Providers Care Weigher Bulker Name Role Phone Unavailable Primary Care Provider Unavailabl e Encounter Details Date Type Department Care Team (Late st Contact Info) Description 07/13/2018 Transcribed Document [facility] 1 [place] [address] Provider, Layla Acosta MD Social [...] On: 07/13/2018 10:08 EDT by Nany Walker, Medical Services Assistant Lead General Information, PT Visit Type, PT : Treatment Note Patient Orders : Order Date Order Ordering 07/11/2018 18:24 PT Treatment Instructions Ordered By: FREDERIC DAAMS MD-ORT 07/11/2018 18:24 PT Evaluation and Treatment [...] within reach, Other: ICE, SCUDS. Nany Walker Medical Services Assistant Lead - 07/13/2018 13:09 EDT RN/PCT Informed [...] Established w Patient : Yes Tsyukalo, Nany, Medical Services Assistant Lead - 07/13/2018 12:22 EDT Senior Oracle Soa Developer Goals Other PT LTG Grid Goal #1 Goal #2 Other : Patient will participate in ther ex training for improved strength with gait and transfers. Patient will complete 2 steps with left rail and min assist for safe access to home at discharge. Date to Meet : 07/15/2018 EDT 07/15/2018 EDT Goal Status : Goal met Goal met Nany Walker Medical Services Assistant Lead - 07/13/2018 12:22 EDT Nany Walker Medical Services Assistant Lead - 07/13/2018 12:22 EDT Treatment Note Subjective Comment : Pt agreeable to therapy. Nany Walker Medical Services Assistant Lead - 07/13/2018 13:09 EDT Patient's Response to Treatment : Good. Nany Walker Medical Services Assistant Lead - 07/13/2018 12:22 EDT Additional Objective [...] therex, 13min gait, 10min theract Nany Walker Medical Services Assistant Lead - 07/13/2018 13:09 EDT Assessment : Pt met goal #1, #2. Plan for Treatment : Home today with family assistance and HHPT. Nany Walker Medical Services Assistant Lead - 07/13/2018 12:22 EDT Pain Assessment Pain Scaled Used : 0-10 Pain scale Pain Score Pre-Intervention : 4 Pain Score During-Intervention : 8 Pain Score Post-Intervention. : 6 Pain Comment : 10/09 pain, nurse aware. Nany Walker Medical Services Assistant Lead - 07/13/2018 12:22 EDT Image 1 - Images currently included in the form version of this document have not been included in the text rendition version of the form. [place] PT Charges PT Therap. Exercise 15 min : 3 PT Ther Activities Ea 15 Min : 1 Gait Training Each 15 Min : 1 Nany Walker Medical Services Assistant Lead - 07/13/2018 12:22 EDT documented in this encounter Plan of Treatment Not on file documented as of this encounter Visit Diagnoses Not on filedocumented in this encounter
--- OUTSIDE RECORDS SUMMARY | 2024-11-23 14:39 | XMS_ITS | Encounter Summary ---
Author Organization [employer] ([place], [place], [place], [place]) Address [address] [place] [address] Care Team Providers Care Exercise Equipment Repair Technician Name Role Phone Unavailable Primary Care Provider Unavailabl e Encounter Details Date Type Department Care Team (Late st Contact Info) Description 07/11/2018 Transcribed Document [facility] Radiology [address] [place] [address] Provider, Layla Acosta MD Social [...]
--- OUTSIDE RECORDS SUMMARY | 2024-11-23 14:39 | XMS_ITS | Encounter Summary ---
Author Organization [employer] ([place], [place], [place], [place]) Address [address] [place] [address] Care Team Providers Care Rad Tech Name Role Phone Unavailable Primary Care Provider Unavailabl e Encounter Details Date Type Department Care Team (Late st Contact Info) Description 07/11/2018 Transcribed Document [facility] [address] [place] [address] ProviderLayla MD Social History Tobacco [...] Notes * Cerner Conversion Note - [facility] Karla Rojo MD - 07/11/2018 7:23 [...]
--- OUTSIDE RECORDS SUMMARY | 2024-11-23 14:39 | XMS_ITS | Clinical Summary ---
Author Organization [employer] ([place], [place], [place], [place]) Address [address] [place] [address] Care Team Providers Care Certified Master Safe Technician Name Role Phone Unavailable Primary Care [...]
--- OUTSIDE RECORDS SUMMARY | 2024-11-23 14:39 | XMS_ITS | Encounter Summary ---
Author Organization [employer] ([place], [place], [place], [place]) Address [address] [place] [address] Care Team Providers Care Inbound Sales Manager Name Role Phone Unavailable Primary Care Provider Unavailabl e Encounter Details Date Type Department Care Team (Late st Contact Info) Description 07/11/2018 Transcribed Document [facility] Radiology [address] [place] [address] ProviderLayla MD Social History Tobacco [...] Miscellaneous Notes * [employer] Conversion Note - [facility] Karla Rojo MD - [...]
--- OUTSIDE RECORDS SUMMARY | 2024-11-23 14:39 | XMS_ITS | Encounter Summary ---
Author Organization [employer] ([place], [place], [place], [place]) Address [address] [place] [address] Care Team Providers Care Social Sciences Professor Name Role Phone Unavailable Primary Care Provider Unavailabl e Encounter Details Date Type Department Care Team (Late st Contact Info) Description 07/13/2018 Transcribed Document [facility] Radiology [address] [place] [address] Provider, Layla Acosta MD Social [...] Barley. Bulgur wheat. Millet. Bran muffins. Popcorn. [place] wafer crackers. ?? Vegetables Sweet potatoes. Spinach. Kale. Artichokes. Cabbage. Broccoli. Green peas. Carrots. Squash. ?? Fruits Berries. Pears. Apples. Oranges. Avocados. Prunes and raisins. Dried figs. ?? Meats and Other Protein Sources [place], kidney, hoff, and soy beans. Split peas. [...] alphonso has 11 g of protein. ?? [place] seeds ??? 1 oz has 5.5 g [...] floor. ?? Place frequently used items in okzj-bs-[id number] places ?? Keep electrical cables out of [...] ? Using the bathroom. ? Using household petroleum inspector or toxic chemicals. ? Touching or taking [...]
--- OUTSIDE RECORDS SUMMARY | 2024-11-23 14:40 | XMS_ITS | Encounter Summary ---
Author Organization [employer] ([place], [place], [place], [place]) Address [address] [place] [address] Care Team Providers Care Motion Picture Printer Name Role Phone Unavailable Primary Care Provider Unavailabl e Encounter Details Date Type Department Care Team (Late st Contact Info) Description 07/13/2018 Transcribed Document [facility] Radiology 1 [place] [address] Provider, Layla Acosta MD Social [...] Miscellaneous Notes * Cerner Conversion Note - [facility] Karla Rojo MD - 07/13/2018 11:48 AM EDT [facility] [address] , [place] [address] Patient Copy Patient Information: Name: FLOR LUX Current Date: 07/13/2018 10:48:09 : 1945 Patient Address: [place] [address] Patient Attending Physician: FREDERIC ADAMS MD-ORT Primary Care Provider: RODO SANFORD MD-[facility] Primary Care Provider Discharge Diagnosis: Weakness Weight on Admission: 175 lb, 0 oz Comment: Follow-up Instructions: With: Address: When: Follow up with specialty services Within 1 week Comments: nephrology With: Address: When: Follow up with primary care provider Within 2 to 3 days With: Address: When: Follow up with primary care provider Within 2 to 3 days With: Address: When: DEYSI MEJIA [address] [place] [address] [facility] (1) 11:15 AM Comments: Appointment has been made Discharge Instructions: Medical Equipment for Home Use: BLUEGRASS BRACING FOR CPM RENTAL Home Health Services: [facility] [phone] Immunizations Documented During Stay: No Immunizations Found [...] Barley. Bulgur wheat. Millet. Bran muffins. Popcorn. [place] wafer crackers. ?? Vegetables Sweet potatoes. Spinach. Kale. Artichokes. Cabbage. Broccoli. Green peas. Carrots. Squash. ?? Fruits Berries. Pears. Apples. Oranges. Avocados. Prunes and raisins. Dried figs. ?? Meats and Other Protein Sources [place], kidney, hoff, and soy beans. Split peas. [...] alphonso has 11 g of protein. ?? Larimer seeds ??? 1 oz has 5.5 g [...] floor. ?? Place frequently used items in pzio-pp-tbobo places ?? Keep electrical cables out of [...] ? Using the bathroom. ? Using household scraper meat or toxic chemicals. ? Touching or taking [...] are a day sleeper or work a shift superintendent caustic cresylate. Some people have thoughts about suicide while [...] may report side effects to FDA at 0-480-REC-9661. What other drugs will affect gabapentin? Taking gabapentin with other drugs that make you sleepy can worsen this effect. Ask your doctor before taking a sleeping pill, narcotic medication, muscle relaxer, or medicine for anxiety, depression, or seizures. Other drugs may interact with gabapentin, including prescription and jehq-rue-ejqsdqa medicines, vitamins, and herbal products. Tell your [...] to ensure that the information provided by [employer]. ('Multum') is accurate, up-to-date, and complete, but no guarantee is made to that effect. Drug information contained herein may be time sensitive. [employer] information has been compiled for use by healthcare practitioners and consumers in the [place] and therefore [employer] does not warrant that uses outside of the [place] are appropriate, unless specifically indicated otherwise. [employer] drug information does not endorse drugs, diagnose patients or recommend therapy. [employer] drug information is an informational resource designed [...] effective or appropriate for any given patient. [employer] does not assume any responsibility for any aspect of healthcare administered with the aid of information [facility] provides. The information contained herein is not intended to cover all possible uses, directions, precautions, warnings, drug interactions, allergic reactions, or adverse effects. If you have questions about the drugs you are taking, check with your doctor, nurse or pharmacist. Copyright 2433-4459 [employer]. Version: 14.01. Revision Date: 02/08/2017. oxycodone (ox [...] The extended-release form of oxycodone is for qzpjdz-bkz-ibqlb treatment of pain and should not be [...] against the law. Stop taking all other nlkudk-otq-adwbt narcotic pain medicines when you start taking [...] may report side effects to FDA at 0-176-PKG-9977. What other drugs will affect oxycodone? You [...] may affect oxycodone. This includes prescription and dnxz-tzk-uvmopuw medicines, vitamins, and herbal products. Not all [...] to ensure that the information provided by [employer]. ('Multum') is accurate, up-to-date, and complete, but no guarantee is made to that effect. Drug information contained herein may be time sensitive. [employer] information has been compiled for use by healthcare practitioners and consumers in the [place] and therefore [employer] does not warrant that uses outside of the [place] are appropriate, unless specifically indicated otherwise. [employer] drug information does not endorse drugs, diagnose patients or recommend therapy. [employer] drug information is an informational resource designed [...] effective or appropriate for any given patient. [facility] does not assume any responsibility for any aspect of healthcare administered with the aid of information [facility] provides. The information contained herein is not intended to cover all possible uses, directions, precautions, warnings, drug interactions, allergic reactions, or adverse effects. If you have questions about the drugs you are taking, check with your doctor, nurse or pharmacist. Copyright 0224-6913 [facility]. Version: 13.02. Revision Date: 03/29/2018. tramadol (TRAM [...] extended-release form of this medicine is for lfqpwg-xfi-ewobs treatment of pain. This form of tramadol [...] against the law. Stop taking all other vlqgax-ujt-dhqcn narcotic pain medications when you start taking [...] may report side effects to FDA at 1-952-XXW-3628. What other drugs will affect tramadol? You [...] may affect tramadol. This includes prescription and ktlg-lkq-ljmtwff medicines, vitamins, and herbal products. Not all [...] to ensure that the information provided by [employer]. ('Multum') is accurate, up-to-date, and complete, but no guarantee is made to that effect. Drug information contained herein may be time sensitive. [employer] information has been compiled for use by healthcare practitioners and consumers in the [place] and therefore [employer] does not warrant that uses outside of the [place] are appropriate, unless specifically indicated otherwise. [employer] drug information does not endorse drugs, diagnose patients or recommend therapy. [employer] drug information is an informational resource designed [...] effective or appropriate for any given patient. [facility] does not assume any responsibility for any aspect of healthcare administered with the aid of information [facility] provides. The information contained herein is not intended to cover all possible uses, directions, precautions, warnings, drug interactions, allergic reactions, or adverse effects. If you have questions about the drugs you are taking, check with your doctor, nurse or pharmacist. Copyright 8183-5513 [employer]. Version: 18.02. Revision Date: 03/29/2018. CIGARETTE SMOKING: The facts are clear, cigarette smoking will shorten your life. Smoking can cause many illnesses along the way. As a healthcare provider, we recommend that you stop smoking. Assistance with quitting is available by contacting 6-896-SXBG-NOW. This is a free resource providing counseling, [...] Be sure to sign up for the [employer] patient portal, which gives you 22/11 access to your medical information ??? including these discharge instructions ??? using your computer, smartphone, or tablet. Just go to [employer] to get started. Questions? Call . [facility] would like to thank you for allowing us to assist you with your healthcare needs. IMACI RITA MOR, (or representative government relations) have received the above patient education materials/instructions and have verbalized understanding: Patient Signature _ Date/Time Patient Wine Bottle Inspector Signature (if needed) Date/Time Clinician/Hospital Wine Bottle Inspector Signature (if needed) Date/Time documented in this encounter Plan of Treatment Not on file documented as of this encounter Visit Diagnoses Not on filedocumented in this encounter
--- OUTSIDE RECORDS SUMMARY | 2024-11-23 14:40 | XMS_ITS | Encounter Summary ---
Author Organization [employer] ([place], [place], [place], [place]) Address [address] [place] [address] Care Team Providers Care Fan Runner Name Role Phone Unavailable Primary Care Provider Unavailabl e Encounter Details Date Type Department Care Team (Late st Contact Info) Description 07/13/2018 Transcribed Document [facility] Radiology 1 [place] [address] Provider, Layla Acosta MD Social [...] 9. Hyperlipidemia. DISCHARGE INSTRUCTIONS: Diet: According to [place] [employer]. 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 3. Diabetes mellitus. Resume home medication. 4. [...]
--- OUTSIDE RECORDS SUMMARY | 2024-11-23 14:40 | XMS_ITS | Encounter Summary ---
Author Organization [employer] ([place], [place], [place], [place]) Address [address] [place] [address] Care Team Providers Care Stenocaptioner Name Role Phone Unavailable Primary Care Provider Unavailabl e Encounter Details Date Type Department Care Team (Late st Contact Info) Description 07/12/2018 Transcribed Document [facility] Radiology 1 [place] [address] Provider, Layla Acosta MD Social [...] TIA (transient ischemic attack) / SNOMED CT 068820803 / Confirmed HTN (hypertension) / SNOMED CT 8974385405 / Confirmed Hyperlipidemia / SNOMED CT 56444178 / Confirmed Fibromyalgia / SNOMED CT 097360516 / Confirmed Circulation problem / SNOMED CT 5957195170 / Confirmed Diabetes / SNOMED CT 233933307 / Confirmed Depression / SNOMED CT 58817233 / Confirmed CAD (coronary artery disease) / SNOMED CT 49274854 / Confirmed At risk for sleep apnea / IMO [id number] / Confirmed Arthritis / SNOMED CT 9489413 / Confirmed Anxiety / SNOMED CT 19066624 / Confirmed, Active Problems (11) Anxiety Arthritis [...] kidney function better time spent 35 min documented in this encounter Plan of Treatment Not on file documented as of this encounter Visit Diagnoses Not on filedocumented in this encounter
--- OUTSIDE RECORDS SUMMARY | 2024-11-23 14:40 | XMS_ITS | Encounter Summary ---
Author Organization [employer] ([place], [place], [place], [place]) Address [address] [place] [address] Care Team Providers Care Drop Forger Helper Name Role Phone Unavailable Primary Care Provider Unavailabl e Encounter Details Date Type Department Care Team (Late st Contact Info) Description 07/12/2018 Transcribed Document [facility] Radiology 1 [place] [address] Provider, Layla Acosta MD Social [...]
--- OUTSIDE RECORDS SUMMARY | 2024-11-23 14:40 | XMS_ITS | Encounter Summary ---
Author Organization [employer] ([place], [place], [place], [place]) Address [address] [place] [address] Care Team Providers Care Tab Cutting Machine Operator Name Role Phone Unavailable Primary Care Provider Unavailabl e Encounter Details Date Type Department Care Team (Late st Contact Info) Description 07/13/2018 Transcribed Document [facility] Radiology 1 [place] [address] Provider, Layla Acosta MD Social [...] Miscellaneous Notes * Cerner Conversion Note - [facility] Karla ProviderMD - 07/13/2018 3:00 AM EDT Testing Projects Administrator Details Entered On: 07/13/2018 1:01 EDT Performed [...]
--- OUTSIDE RECORDS SUMMARY | 2024-11-23 14:40 | XMS_ITS | Encounter Summary ---
Author Organization [employer] ([place], [place], [place], [place]) Address [address] [place] [address] Care Team Providers Care Screening Nurse Name Role Phone Unavailable Primary Care Provider Unavailabl e Encounter Details Date Type Department Care Team (Late st Contact Info) Description 07/12/2018 Transcribed Document [facility] Radiology [address] [place] [address] Provider, Layla Acosta MD Social [...]
--- OUTSIDE RECORDS SUMMARY | 2024-11-23 14:40 | XMS_ITS | Encounter Summary ---
Author Organization [employer] ([place], [place], [place], [place]) Address [address] [place] [address] Care Team Providers Care Nursing Professor Name Role Phone Unavailable Primary Care Provider Unavailabl e Encounter Details Date Type Department Care Team (Late st Contact Info) Description 07/12/2018 Transcribed Document [facility] Radiology 1 [place] [address] Provider, Layla Acosta MD Social [...]
--- OUTSIDE RECORDS SUMMARY | 2024-11-23 14:40 | XMS_ITS | Encounter Summary ---
Author Organization [employer] ([place], [place], [place], [place]) Address [address] [place] [address] Care Team Providers Care Waste And Batting Waste Chopper Name Role Phone Unavailable Primary Care Provider Unavailabl e Encounter Details Date Type Department Care Team (Late st Contact Info) Description 07/12/2018 Transcribed Document [facility] Radiology 1 [place] [address] Provider, Layla Acosta MD [...] NENITA PEREZ PT - 07/12/2018 13:35 EDT City Superintendent Of Schools Goals Other PT LTG Grid Goal #1 [...]
--- OUTSIDE RECORDS SUMMARY | 2024-11-23 14:40 | XMS_ITS | Encounter Summary ---
Author Organization [employer] ([place], [place], [place], [place]) Address [address] [place] [address] Care Team Providers Care Job Foreman Name Role Phone Unavailable Primary Care Provider Unavailabl e Encounter Details Date Type Department Care Team (Late st Contact Info) Description 07/12/2018 Transcribed Document [facility] Radiology 1 [place] [address] Provider, Layla Acosta MD Social [...]
--- OUTSIDE RECORDS SUMMARY | 2024-11-23 14:40 | XMS_ITS | Encounter Summary ---
Author Organization [employer] ([place], [place], [place], [place]) Address [address] [place] [address] Care Team Providers Care Marine Engineer Name Role Phone Unavailable Primary Care Provider Unavailabl e Encounter Details Date Type Department Care Team (Late st Contact Info) Description 07/13/2018 Transcribed Document [facility] Radiology 1 [place] [address] Provider, Layla Acosta MD Social [...] On: 07/13/2018 12:49 EDT by Nany Walker Community Health Worker Lead Discharge Summary Discharge Summary Provider Notified : Nursing, Referring provider Reason for Discharge : Discharged from hospital, All goals met Discharged to, Therapy : Home, with home health Nany Walker Community Health Worker Lead - 07/13/2018 12:49 EDT Discharge Summary [...] DIANNA WELSH, PT - 07/13/2018 16:09 EDT County Treasurer Goals Other PT LTG Grid Goal #1 [...]
--- OUTSIDE RECORDS SUMMARY | 2024-11-23 14:40 | XMS_ITS | Encounter Summary ---
Author Organization [employer] ([place], [place], [place], [place]) Address [address] [place] [address] Care Team Providers Care Process Analyst Name Role Phone Unavailable Primary Care Provider Unavailabl e Encounter Details Date Type Department Care Team (Late st Contact Info) Description 07/13/2018 Transcribed Document [facility] Radiology 1 [place] [address] Provider, Layla Acosta MD Social [...] Notes * Cerner Conversion Note - [facility] Karla Rojo MD - 07/13/2018 12:48 PM EDT [facility] [address] , [place] [address] Patient Copy Patient Information: Name: FLOR LUX Current Date: 07/13/2018 11:48:22 : 1945 Patient Address: [place] [address] Patient Attending Physician: FREDERIC ADAMS MD-ORT Primary Care Provider: RODO SANFORD MD-[facility] Primary Care Provider Discharge Diagnosis: Weakness Weight on Admission: 175 lb, 0 oz Comment: Follow-up Instructions: With: Address: When: Follow up with specialty services Within 2 to 3 days Comments: Nephrology With: Address: When: Follow up with primary care provider Within 2 to 3 days With: Address: When: DEYSI MEJIA [address] [place] [address] [employer] (1) 11:15 AM Comments: Appointment has been made Discharge Instructions: Medical Equipment for Home Use: BLUEGRASS BRACING FOR CPM RENTAL Home Health Services: [employer] [phone] Immunizations Documented During Stay: No Immunizations Found [...] Barley. Bulgur wheat. Millet. Bran muffins. Popcorn. [place] wafer crackers. ?? Vegetables Sweet potatoes. Spinach. Kale. Artichokes. Cabbage. Broccoli. Green peas. Carrots. Squash. ?? Fruits Berries. Pears. Apples. Oranges. Avocados. Prunes and raisins. Dried figs. ?? Meats and Other Protein Sources [place], kidney, hoff, and soy beans. Split peas. [...] alphonso has 11 g of protein. ?? [place] seeds ??? 1 oz has 5.5 g [...] floor. ?? Place frequently used items in jutl-fi-picei places ?? Keep electrical cables out of [...] ? Using the bathroom. ? Using household rigger helper or toxic chemicals. ? Touching or [...] are a day sleeper or work a aerospace engineer officer armament. Some people have thoughts about suicide while [...] may report side effects to FDA at 8-478-LVW-5166. What other drugs will affect gabapentin? Taking gabapentin with other drugs that make you sleepy can worsen this effect. Ask your doctor before taking a sleeping pill, narcotic medication, muscle relaxer, or medicine for anxiety, depression, or seizures. Other drugs may interact with gabapentin, including prescription and nmmx-xrv-enzwqsy medicines, vitamins, and herbal products. Tell your [...] to ensure that the information provided by [employer]. ('Multum') is accurate, up-to-date, and complete, but no guarantee is made to that effect. Drug information contained herein may be time sensitive. [employer] information has been compiled for use by healthcare practitioners and consumers in the [place] and therefore [employer] does not warrant that uses outside of the [place] are appropriate, unless specifically indicated otherwise. [employer] drug information does not endorse drugs, diagnose patients or recommend therapy. [employer] drug information is an informational resource designed [...] effective or appropriate for any given patient. [employer] does not assume any responsibility for any aspect of healthcare administered with the aid of information [employer] provides. The information contained herein is not intended to cover all possible uses, directions, precautions, warnings, drug interactions, allergic reactions, or adverse effects. If you have questions about the drugs you are taking, check with your doctor, nurse or pharmacist. Copyright 1006-5616 [employer]. Version: 14.01. Revision Date: 02/08/2017. oxycodone (ox [...] The extended-release form of oxycodone is for altmvu-dns-avyky treatment of pain and should not be [...] against the law. Stop taking all other ctzqgp-ajl-otfku narcotic pain medicines when you start taking [...] may report side effects to FDA at 5-854-GMN-1854. What other drugs will affect oxycodone? You [...] may affect oxycodone. This includes prescription and ilrt-npp-ozvsnmw medicines, vitamins, and herbal products. Not all [...] to ensure that the information provided by [employer]. ('Multum') is accurate, up-to-date, and complete, but no guarantee is made to that effect. Drug information contained herein may be time sensitive. [employer] information has been compiled for use by healthcare practitioners and consumers in the [place] and therefore [employer] does not warrant that uses outside of the [place] are appropriate, unless specifically indicated otherwise. [employer] drug information does not endorse drugs, diagnose patients or recommend therapy. [employer] drug information is an informational resource designed [...] effective or appropriate for any given patient. [employer] does not assume any responsibility for any aspect of healthcare administered with the aid of information [facility] provides. The information contained herein is not intended to cover all possible uses, directions, precautions, warnings, drug interactions, allergic reactions, or adverse effects. If you have questions about the drugs you are taking, check with your doctor, nurse or pharmacist. Copyright 6739-9216 [employer]. Version: 13.02. Revision Date: 03/29/2018. tramadol (TRAM [...] extended-release form of this medicine is for pdwdkt-mwi-ezwuy treatment of pain. This form of tramadol [...] against the law. Stop taking all other bvsemf-lwp-hegnv narcotic pain medications when you start taking [...] may report side effects to FDA at 5-140-CON-1255. What other drugs will affect tramadol? You [...] may affect tramadol. This includes prescription and sikb-cje-opaeezt medicines, vitamins, and herbal products. Not all [...] to ensure that the information provided by [employer]. ('Multum') is accurate, up-to-date, and complete, but no guarantee is made to that effect. Drug information contained herein may be time sensitive. [employer] information has been compiled for use by healthcare practitioners and consumers in the [place] and therefore [employer] does not warrant that uses outside of the [place] are appropriate, unless specifically indicated otherwise. [employer]'s drug information does not endorse drugs, diagnose patients or recommend therapy. [employer]'s drug information is an informational resource designed [...] appropriate for any given patient. [facility] does not assume any responsibility for any aspect of healthcare administered with the aid of information [facility] provides. The information contained herein is not intended to cover all possible uses, directions, precautions, warnings, drug interactions, allergic reactions, or adverse effects. If you have questions about the drugs you are taking, check with your doctor, nurse or pharmacist. Copyright 7269-1501 [facility]. Version: 18.02. Revision Date: 03/29/2018. CIGARETTE SMOKING: The facts are clear, cigarette smoking will shorten your life. Smoking can cause many illnesses along the way. As a healthcare provider, we recommend that you stop smoking. Assistance with quitting is available by contacting 6-512-UTVG-NOW. This is a free resource providing counseling, [...] Be sure to sign up for the [employer] patient portal, which gives you 22/11 access to your medical information ??? including these discharge instructions ??? using your computer, smartphone, or tablet. Just go to [employer] to get started. Questions? Call . [facility] would like to thank you for allowing us to assist you with your healthcare needs. MACI Benjamin RITA MOR, (or event sales representative) have received the above patient education materials/instructions and have verbalized understanding: Patient Signature _ Date/Time Patient Manager Voice Signature (if needed) Date/Time Clinician/Hospital Manager Voice Signature (if needed) Date/Time documented in this encounter Plan of Treatment Not on file documented as of this encounter Visit Diagnoses Not on filedocumented in this encounter
--- OUTSIDE RECORDS SUMMARY | 2024-11-23 14:40 | XMS_ITS | Encounter Summary ---
Author Organization [employer] ([place], [place], [place], [place]) Address [address] [place] [address] Care Team Providers Care Hand Polisher Name Role Phone Unavailable Primary Care Provider Unavailabl e Encounter Details Date Type Department Care Team (Late st Contact Info) Description 07/12/2018 Transcribed Document [facility] [address] [place] [address] ProviderLayla MD Social History Tobacco [...] 07/12/2018 18:06 EDT by Jessica Cote Case Management-Rehabilitation Program Coordinator DC Instructions HWD Medical Equipment For Home Use : BLUEGRASS BRACING FOR CPM RENTAL Home Health Services : [facility] [phone] Jessica Cote Case Management-Rehabilitation Program Coordinator - 07/12/2018 18:06 EDT documented in this encounter Plan of Treatment Not on file documented as of this encounter Visit Diagnoses Not on filedocumented in this encounter
--- OUTSIDE RECORDS SUMMARY | 2024-11-23 14:40 | XMS_ITS | Encounter Summary ---
Author Organization [employer] ([place], [place], [place], [place]) Address [address] [place] [address] Care Team Providers Care Lift Mechanic Name Role Phone Unavailable Primary Care Provider Unavailabl e Encounter Details Date Type Department Care Team (Late st Contact Info) Description 07/13/2018 Transcribed Document [facility] 1 [place] [address] Provider, Layla Acosta MD Social [...] TIA (transient ischemic attack) / SNOMED CT 719000510 / Confirmed HTN (hypertension) / SNOMED CT 5288472597 / Confirmed Hyperlipidemia / SNOMED CT 38768747 / Confirmed Fibromyalgia / SNOMED CT 431564804 / Confirmed Circulation problem / SNOMED CT 3929077478 / Confirmed Diabetes / SNOMED CT 441795834 / Confirmed Depression / SNOMED CT 47029985 / Confirmed CAD (coronary artery disease) / SNOMED CT 65440600 / Confirmed At risk for sleep apnea / IMO [id number] / Confirmed Arthritis / SNOMED CT 9513639 / Confirmed Anxiety / SNOMED CT 17707263 / Confirmed, Active Problems (11) Anxiety Arthritis [...]
--- OUTSIDE RECORDS SUMMARY | 2024-11-23 14:40 | XMS_ITS | Encounter Summary ---
Author Organization [employer] ([place], [place], [place], [place]) Address [address] [place] [address] Care Team Providers Care Panel Installer Name Role Phone Unavailable Primary Care Provider Unavailabl e Encounter Details Date Type Department Care Team (Late st Contact Info) Description 07/13/2018 Transcribed Document [facility] 1 [place] [address] Provider, Layla Acosta MD Social [...] Miscellaneous Notes * Cerner Conversion Note - [facility] Karla Rojo MD - 07/13/2018 4:00 AM [...]
--- OUTSIDE RECORDS SUMMARY | 2024-11-23 14:40 | XMS_ITS | Encounter Summary ---
Author Organization [employer] ([place], [place], [place], [place]) Address [address] [place] [address] Care Team Providers Care University Partnership Rep Name Role Phone Unavailable Primary Care Provider Unavailabl e Encounter Details Date Type Department Care Team (Late st Contact Info) Description 07/12/2018 Transcribed Document [facility] Radiology 1 [place] [address] Provider, Layla Acosta MD Social [...] right TKA. High risk and complex pt #[id number] documented in this encounter Plan of Treatment Not on file documented as of this encounter Visit Diagnoses Not on filedocumented in this encounter
--- OUTSIDE RECORDS SUMMARY | 2024-11-23 14:40 | XMS_ITS | Encounter Summary ---
Author Organization [employer] ([place], [place], [place], [place]) Address [address] [place] [address] Care Team Providers Care Hiv/Aids Care Nurse Name Role Phone Unavailable Primary Care Provider Unavailabl e Encounter Details Date Type Department Care Team (Late st Contact Info) Description 07/13/2018 Transcribed Document [facility] Radiology 1 [place] [address] Provider, Layla Acosta MD Social [...] Conversion Note - [facility] Karla Rojo MD - 07/13/2018 11:49 AM EDT [facility] [address] , [place] [address] Patient Copy Patient Information: Name: FLOR LUX Current Date: 07/13/2018 10:49:37 : 1945 Patient Address: [place] [address] Patient Attending Physician: FREDERIC ADAMS MD-ORT Primary Care Provider: RODO SANFORD MD-[facility] Primary Care Provider Discharge Diagnosis: Weakness Weight on Admission: 175 lb, 0 oz Comment: Follow-up Instructions: With: Address: When: Follow up with specialty services Within 2 to 3 days Comments: Nephrology With: Address: When: Follow up with primary care provider Within 2 to 3 days With: Address: When: DEYSI MEJIA [address] [facility] [place] [address] [place] (1) 11:15 AM Comments: Appointment has been made Discharge Instructions: Medical Equipment for Home Use: BLUEGRASS BRACING FOR CPM RENTAL Home Health Services: [employer] [facility] [phone] Immunizations Documented During Stay: No Immunizations Found [...] Barley. Bulgur wheat. Millet. Bran muffins. Popcorn. [place] wafer crackers. ?? Vegetables Sweet potatoes. Spinach. Kale. Artichokes. Cabbage. Broccoli. Green peas. Carrots. Squash. ?? Fruits Berries. Pears. Apples. Oranges. Avocados. Prunes and raisins. Dried figs. ?? Meats and Other Protein Sources [place], kidney, hoff, and soy beans. Split peas. [...] alphonso has 11 g of protein. ?? [place] seeds ??? 1 oz has 5.5 g [...] floor. ?? Place frequently used items in vjqg-mj-jpbun places ?? Keep electrical cables out of [...] ? Using the bathroom. ? Using household retail equipment associate or toxic chemicals. ? Touching or taking [...] are a day sleeper or work a casino shift manager. Some people have thoughts about suicide while [...] may report side effects to FDA at 0-570-QPO-7671. What other drugs will affect gabapentin? Taking gabapentin with other drugs that make you sleepy can worsen this effect. Ask your doctor before taking a sleeping pill, narcotic medication, muscle relaxer, or medicine for anxiety, depression, or seizures. Other drugs may interact with gabapentin, including prescription and lkzz-gqa-osuabad medicines, vitamins, and herbal products. Tell your [...] to ensure that the information provided by joiz. ('Multum') is accurate, up-to-date, and complete, but no guarantee is made to that effect. Drug information contained herein may be time sensitive. Guidekick information has been compiled for use by healthcare practitioners and consumers in the [place] and therefore Guidekick does not warrant that uses outside of the [place] are appropriate, unless specifically indicated otherwise. [employer] drug information does not endorse drugs, diagnose patients or recommend therapy. [employer] drug information is an informational resource designed [...] effective or appropriate for any given patient. Guidekick does not assume any responsibility for any aspect of healthcare administered with the aid of information Guidekick provides. The information contained herein is not intended to cover all possible uses, directions, precautions, warnings, drug interactions, allergic reactions, or adverse effects. If you have questions about the drugs you are taking, check with your doctor, nurse or pharmacist. Copyright 5334-1161 joiz. Version: 14.01. Revision Date: 02/08/2017. oxycodone (ox [...] The extended-release form of oxycodone is for nogrwk-yqp-bwszg treatment of pain and should not be [...] against the law. Stop taking all other lqmpkl-wdn-cqibt narcotic pain medicines when you start taking [...] may report side effects to FDA at 7-903-SBV-3210. What other drugs will affect oxycodone? You [...] may affect oxycodone. This includes prescription and zgot-uhg-lypefed medicines, vitamins, and herbal products. Not all [...] to ensure that the information provided by joiz. ('Multum') is accurate, up-to-date, and complete, but no guarantee is made to that effect. Drug information contained herein may be time sensitive. Guidekick information has been compiled for use by healthcare practitioners and consumers in the [place] and therefore Guidekick does not warrant that uses outside of the [place] are appropriate, unless specifically indicated otherwise. Guidekick's drug information does not endorse drugs, diagnose patients or recommend therapy. [employer] drug information is an informational resource designed [...] effective or appropriate for any given patient. Guidekick does not assume any responsibility for any aspect of healthcare administered with the aid of information [facility] provides. The information contained herein is not intended to cover all possible uses, directions, precautions, warnings, drug interactions, allergic reactions, or adverse effects. If you have questions about the drugs you are taking, check with your doctor, nurse or pharmacist. Copyright 1114-0821 joiz. Version: 13.02. Revision Date: 03/29/2018. tramadol (TRAM [...] extended-release form of this medicine is for mrlwdx-enb-krhyi treatment of pain. This form of tramadol [...] against the law. Stop taking all other pfuafa-ugb-dokig narcotic pain medications when you start taking [...] may report side effects to FDA at 0-528-QZE-8134. What other drugs will affect tramadol? You [...] may affect tramadol. This includes prescription and enmi-oyo-jnwjzjl medicines, vitamins, and herbal products. Not all [...] to ensure that the information provided by joiz. ('Multum') is accurate, up-to-date, and complete, but no guarantee is made to that effect. Drug information contained herein may be time sensitive. [employer] information has been compiled for use by healthcare practitioners and consumers in the [place] and therefore [employer] does not warrant that uses outside of the [place] are appropriate, unless specifically indicated otherwise. Guidekick's drug information does not endorse drugs, diagnose patients or recommend therapy. Guidekick's drug information is an informational resource designed [...] effective or appropriate for any given patient. [facility] does not assume any responsibility for any aspect of healthcare administered with the aid of information [facility] provides. The information contained herein is not intended to cover all possible uses, directions, precautions, warnings, drug interactions, allergic reactions, or adverse effects. If you have questions about the drugs you are taking, check with your doctor, nurse or pharmacist. Copyright 7138-2370 [facility] Pharm[facility]. Version: 18.02. Revision Date: 03/29/2018. CIGARETTE SMOKING: The facts are clear, cigarette smoking will shorten your life. Smoking can cause many illnesses along the way. As a healthcare provider, we recommend that you stop smoking. Assistance with quitting is available by contacting 2-206-DFTA-NOW. This is a free resource providing counseling, [...] Be sure to sign up for the [employer] patient portal, which gives you 22/11 access to your medical information ??? including these discharge instructions ??? using your computer, smartphone, or tablet. Just go to MedPageToday to get started. Questions? Call . [facility] would like to thank you for allowing us to assist you with your healthcare needs. MACI Benjamin RITA MOR, (or business banking representative) have received the above patient education materials/instructions and have verbalized understanding: Patient Signature _ Date/Time Patient Histotechnologist Supervisor Signature (if needed) Date/Time Clinician/Hospital Histotechnologist Supervisor Signature (if needed) Date/Time documented in this encounter Plan of Treatment Not on file documented as of this encounter Visit Diagnoses Not on filedocumented in this encounter
--- OUTSIDE RECORDS SUMMARY | 2024-11-23 14:40 | XMS_ITS | Encounter Summary ---
Author Organization [employer] ([place], [place], [place], [place]) Address [address] [place] [address] Care Team Providers Care Wedding Photographer Name Role Phone Unavailable Primary Care Provider Unavailabl e Encounter Details Date Type Department Care Team (Late st Contact Info) Description 07/13/2018 Transcribed Document [facility] Radiology 1 [place] [address] Provider, Layla Acosta MD Social [...] [facility] Karla Rojo MD - 07/13/2018 1:00 AM [...]
--- OUTSIDE RECORDS SUMMARY | 2024-11-23 14:40 | XMS_ITS | Encounter Summary ---
Author Organization [employer] ([place], [place], [place], [place]) Address [address] [place] [address] Care Team Providers Care Linseed Oil Refiner Name Role Phone Unavailable Primary Care Provider Unavailabl e Encounter Details Date Type Department Care Team (Late st Contact Info) Description 07/12/2018 Transcribed Document [facility] Radiology 1 [place] [address] Provider, Layla Acosta MD Social [...] LOW 07/12/2018 05:06 Creatinine Level 2.74 mg/dL UT 07/12/2018 05:06 eGFR 21 mL/min/1.73m2 LOW 07/12/2018 05:06 Bun/Creatinine 11.3 07/12/2018 05:06 Sodium Level 133 mmol/L LOW 07/12/2018 05:06 Potassium Level 5.7 mmol/L UT 07/12/2018 05:06 Chloride Level 104 mmol/L 07/12/2018 05:06 Carbon Dioxide Level 21 mmol/L 07/12/2018 05:06 Anion Gap 14 07/12/2018 05:06 Blood Urea Nitrogen 31 mg/dL UT 07/12/2018 05:06 Glucose Level 366 mg/dL UT 07/12/2018 05:06 Calcium Level 8.2 mg/dL LOW [...] Will hold d/c today for further observation. documented in this encounter Plan of Treatment Not on file documented as of this encounter Visit Diagnoses Not on filedocumented in this encounter
--- OUTSIDE RECORDS SUMMARY | 2024-11-23 14:40 | XMS_ITS | Encounter Summary ---
Author Organization [employer] ([place], [place], [place], [place]) Address [address] [place] [address] Care Team Providers Care Multimedia Project Manager Name Role Phone Unavailable Primary Care Provider Unavailabl e Encounter Details Date Type Department Care Team (Late st Contact Info) Description 07/12/2018 Transcribed Document [facility] Radiology 1 [place] [address] Provider, Layla Acosta MD Social [...] Miscellaneous Notes * Cerner Conversion Note - [facility] Karla Rojo MD - 07/12/2018 10:39 AM [...]
--- OUTSIDE RECORDS SUMMARY | 2024-11-23 14:40 | XMS_ITS | Encounter Summary ---
Author Organization [employer] ([place], [place], [place], [place]) Address [address] [place] [address] Care Team Providers Care Defensive Fire Control Systems Operator Name Role Phone Unavailable Primary Care Provider Unavailabl e Encounter Details Date Type Department Care Team (Late st Contact Info) Description 07/12/2018 Transcribed Document [facility] 1 [place] [address] Provider, Layla Acosta MD Social [...] Notes * Cerner Conversion Note - [facility] Karla Rojo MD - 07/12/2018 7:07 PM EDT [facility] [address] , [place] [address] Patient Copy Patient Information: Name: FLOR LUX Current Date: 07/12/2018 18:07:05 : 1945 Patient Address: [place] [address] Patient Attending Physician: FREDERIC ADAMS MD-ORT Primary Care Provider: RODO SANFORD MD-[facility] Primary Care Provider Discharge Diagnosis: Weight on Admission: 175 lb, 0 oz Comment: Follow-up Instructions: With: Address: When: DEYSI MEJIA [address] [facility] [place] [phone] Business (1) 11:15 AM Comments: Appointment has been made Discharge Instructions: Medical Equipment for Home Use: BLUEGRASS BRACING FOR CPM RENTAL Home Health Services: [facility] [phone] Immunizations Documented During Stay: No Immunizations Found [...] Barley. Bulgur wheat. Millet. Bran muffins. Popcorn. [place] wafer crackers. ?? Vegetables Sweet potatoes. Spinach. Kale. Artichokes. Cabbage. Broccoli. Green peas. Carrots. Squash. ?? Fruits Berries. Pears. Apples. Oranges. Avocados. Prunes and raisins. Dried figs. ?? Meats and Other Protein Sources [place], kidney, hoff, and soy beans. Split peas. [...] alphonso has 11 g of protein. ?? [place] seeds ??? 1 oz has 5.5 g [...] floor. ?? Place frequently used items in mssm-ew-xqvne places ?? Keep electrical cables out of [...] ? Using the bathroom. ? Using household coding clerks supervisor or toxic chemicals. ? Touching or taking [...] are a day sleeper or work a manager night. Some people have thoughts about suicide while [...] may report side effects to FDA at 2-357-ALL-6230. What other drugs will affect gabapentin? Taking gabapentin with other drugs that make you sleepy can worsen this effect. Ask your doctor before taking a sleeping pill, narcotic medication, muscle relaxer, or medicine for anxiety, depression, or seizures. Other drugs may interact with gabapentin, including prescription and mxpk-ysc-fenpltg medicines, vitamins, and herbal products. Tell your [...] to ensure that the information provided by [employer]ox. ('Updater') is accurate, up-to-date, and complete, but no guarantee is made to that effect. Drug information contained herein may be time sensitive. Updater information has been compiled for use by healthcare practitioners and consumers in the [place] and therefore Updater does not warrant that uses outside of the [place] are appropriate, unless specifically indicated otherwise. [employer] drug information does not endorse drugs, diagnose patients or recommend therapy. [employer] drug information is an informational resource designed [...] effective or appropriate for any given patient. Updater does not assume any responsibility for any aspect of healthcare administered with the aid of information Up[employer] provides. The information contained herein is not intended to cover all possible uses, directions, precautions, warnings, drug interactions, allergic reactions, or adverse effects. If you have questions about the drugs you are taking, check with your doctor, nurse or pharmacist. Copyright 1537-8746 [employer]. Version: 14.01. Revision Date: 02/08/2017. oxycodone (ox [...] The extended-release form of oxycodone is for dzctxd-whe-gkpnb treatment of pain and should not be [...] against the law. Stop taking all other erwrwr-eyn-opfzc narcotic pain medicines when you start taking [...] may report side effects to FDA at 5-590-FTR-3902. What other drugs will affect oxycodone? You [...] may affect oxycodone. This includes prescription and vbuj-alr-xspjkun medicines, vitamins, and herbal products. Not all [...] to ensure that the information provided by Jimubox. ('Multum') is accurate, up-to-date, and complete, but no guarantee is made to that effect. Drug information contained herein may be time sensitive. Updater information has been compiled for use by healthcare practitioners and consumers in the [place] and therefore Updater does not warrant that uses outside of the [place] are appropriate, unless specifically indicated otherwise. Updater's drug information does not endorse drugs, diagnose patients or recommend therapy. [employer] drug information is an informational resource designed [...] effective or appropriate for any given patient. Updater does not assume any responsibility for any aspect of healthcare administered with the aid of information Updater provides. The information contained herein is not intended to cover all possible uses, directions, precautions, warnings, drug interactions, allergic reactions, or adverse effects. If you have questions about the drugs you are taking, check with your doctor, nurse or pharmacist. Copyright 5241-4125 [employer]ox. Version: 13.02. Revision Date: 03/29/2018. tramadol (TRAM [...] extended-release form of this medicine is for succcz-nbg-wylwo treatment of pain. This form of tramadol [...] against the law. Stop taking all other zrctai-ogp-itoyn narcotic pain medications when you start taking [...] may report side effects to FDA at 5-266-VMV-7843. What other drugs will affect tramadol? You [...] may affect tramadol. This includes prescription and xwcy-knk-uxuvdtk medicines, vitamins, and herbal products. Not all [...] to ensure that the information provided by Jimubox. ('Multum') is accurate, up-to-date, and complete, but no guarantee is made to that effect. Drug information contained herein may be time sensitive. Updater information has been compiled for use by healthcare practitioners and consumers in the [place] and therefore Updater does not warrant that uses outside of the [place] are appropriate, unless specifically indicated otherwise. Updater's drug information does not endorse drugs, diagnose patients or recommend therapy. [employer] drug information is an informational resource designed [...] effective or appropriate for any given patient. [facility] does not assume any responsibility for any aspect of healthcare administered with the aid of information [employer] includes the [facility] provides. The information contained herein is not intended to cover all possible uses, directions, precautions, warnings, drug interactions, allergic reactions, or adverse effects. If you have questions about the drugs you are taking, check with your doctor, nurse or pharmacist. Copyright 0781-5490 [facility]. Version: 18.02. Revision Date: 03/29/2018. CIGARETTE SMOKING: The facts are clear, cigarette smoking will shorten your life. Smoking can cause many illnesses along the way. As a healthcare provider, we recommend that you stop smoking. Assistance with quitting is available by contacting 4-379-CMJE-NOW. This is a free resource providing counseling, [...] sure to sign up for the My [facility] patient portal, which gives you 22/11 access to your medical information ??? including these discharge instructions ??? using your computer, smartphone, or tablet. Just go to Yowza to get started. Questions? Call . [facility] would like to thank you for allowing us to assist you with your healthcare needs. IMACI RITA MOR, (or small business representative) have received the above patient education materials/instructions and have verbalized understanding: Patient Signature _ Date/Time Patient Auto Rental Supervisor Signature (if needed) Date/Time Clinician/Hospital Auto Rental Supervisor Signature (if needed) Date/Time documented in this encounter Plan of Treatment Not on file documented as of this encounter Visit Diagnoses Not on filedocumented in this encounter
--- OUTSIDE RECORDS SUMMARY | 2024-11-23 14:40 | XMS_ITS | Encounter Summary ---
Author Organization [employer] ([place], [place], [place], [place]) Address [address] [place] [address] Care Team Providers Care Electronic Equipment Installer Name Role Phone Unavailable Primary Care Provider Unavailabl e Encounter Details Date Type Department Care Team (Late st Contact Info) Description 07/12/2018 Transcribed Document [facility] [address] [place] [address] Provider, Layla Acosta MD Social [...] * Cerner Conversion Note - [facility] Karla Rojo MD - 07/12/2018 4:16 PM EDT [facility] [address] [facility] , [place] [address] Patient Copy Patient Information: Name: FLOR LUX Current Date: 07/12/2018 15:16:51 : 1945 Patient Address: [place] [address] Patient Attending Physician: FREDERIC ADAMS MD-ORT Primary Care Provider: RODO SANFORD MD-[facility] Primary Care Provider Discharge Diagnosis: Weight on Admission: 175 lb, 0 oz Comment: Follow-up Instructions: With: Address: When: DEYSI MEJIA [address] [facility], [address] [place] [phone] Business (1) 11:15 AM Comments: Appointment has [...] Barley. Bulgur wheat. Millet. Bran muffins. Popcorn. Decker wafer crackers. ?? Vegetables Sweet potatoes. Spinach. Kale. Artichokes. Cabbage. Broccoli. Green peas. Carrots. Squash. ?? Fruits Berries. Pears. Apples. Oranges. Avocados. Prunes and raisins. Dried figs. ?? Meats and Other Protein Sources [place], kidney, hoff, and soy beans. Split peas. [...] alphonso has 11 g of protein. ?? Justice seeds ??? 1 oz has 5.5 g [...] floor. ?? Place frequently used items in mhtp-fr-stifq places ?? Keep electrical cables out of [...] ? Using the bathroom. ? Using household senior net architect or toxic chemicals. ? Touching or taking [...] are a day sleeper or work a sand analyst. Some people have thoughts about suicide while [...] may report side effects to FDA at 6-313-LKU-1172. What other drugs will affect gabapentin? Taking gabapentin with other drugs that make you sleepy can worsen this effect. Ask your doctor before taking a sleeping pill, narcotic medication, muscle relaxer, or medicine for anxiety, depression, or seizures. Other drugs may interact with gabapentin, including prescription and cxcv-bnr-jdrzkwm medicines, vitamins, and herbal products. Tell your [...] to ensure that the information provided by [employer]. ('[employer]') is accurate, up-to-date, and complete, but no guarantee is made to that effect. Drug information contained herein may be time sensitive. [employer] information has been compiled for use by healthcare practitioners and consumers in the [place] and therefore [employer] does not warrant that uses outside of the [place] are appropriate, unless specifically indicated otherwise. [employer] drug information does not endorse drugs, diagnose patients or recommend therapy. [employer] drug information is an informational resource designed [...] effective or appropriate for any given patient. [employer] does not assume any responsibility for any aspect of healthcare administered with the aid of information [employer] provides. The information contained herein is not intended to cover all possible uses, directions, precautions, warnings, drug interactions, allergic reactions, or adverse effects. If you have questions about the drugs you are taking, check with your doctor, nurse or pharmacist. Copyright 7719-8078 [employer]. Version: 14.01. Revision Date: 02/08/2017. oxycodone (ox [...] The extended-release form of oxycodone is for ftuxyt-zhj-lpplh treatment of pain and should not be [...] against the law. Stop taking all other tuiivg-jba-fnasf narcotic pain medicines when you start taking [...] may report side effects to FDA at 2-560-AYO-9192. What other drugs will affect oxycodone? You [...] may affect oxycodone. This includes prescription and qpkp-wko-mhsokum medicines, vitamins, and herbal products. Not all [...] to ensure that the information provided by [employer]') is accurate, up-to-date, and complete, but no guarantee is made to that effect. Drug information contained herein may be time sensitive. [employer] information has been compiled for use by healthcare practitioners and consumers in the [place] and therefore [employer] does not warrant that uses outside of the [place] are appropriate, unless specifically indicated otherwise. [employer] drug information does not endorse drugs, diagnose patients or recommend therapy. [employer] drug information is an informational resource designed [...] effective or appropriate for any given patient. [employer] does not assume any responsibility for any aspect of healthcare administered with the aid of information [employer] provides. The information contained herein is not intended to cover all possible uses, directions, precautions, warnings, drug interactions, allergic reactions, or adverse effects. If you have questions about the drugs you are taking, check with your doctor, nurse or pharmacist. Copyright 8440-2642 [employer]. Version: 13.02. Revision Date: 03/29/2018. tramadol (TRAM [...] extended-release form of this medicine is for otiwmn-opb-rniid treatment of pain. This form of tramadol [...] against the law. Stop taking all other nmpbxi-lgm-dpwey narcotic pain medications when you start taking [...] may report side effects to FDA at 0-988-GXB-0721. What other drugs will affect tramadol? You [...] may affect tramadol. This includes prescription and dsbf-hoi-aoufrpb medicines, vitamins, and herbal products. Not all [...] to ensure that the information provided by [employer]') is accurate, up-to-date, and complete, but no guarantee is made to that effect. Drug information contained herein may be time sensitive. [employer] information has been compiled for use by healthcare practitioners and consumers in the [place] and therefore [employer] does not warrant that uses outside of the [place] are appropriate, unless specifically indicated otherwise. [employer] drug information does not endorse drugs, diagnose patients or recommend therapy. [employer] drug information is an informational resource designed [...] effective or appropriate for any given patient. [facility] does not assume any responsibility for any aspect of healthcare administered with the aid of information [facility] provides. The information contained herein is not intended to cover all possible uses, directions, precautions, warnings, drug interactions, allergic reactions, or adverse effects. If you have questions about the drugs you are taking, check with your doctor, nurse or pharmacist. Copyright 1097-7652 [facility] [employer]. Version: 18.02. Revision Date: 03/29/2018. CIGARETTE SMOKING: The facts are clear, cigarette smoking will shorten your life. Smoking can cause many illnesses along the way. As a healthcare provider, we recommend that you stop smoking. Assistance with quitting is available by contacting 3-317-NMBC-NOW. This is a free resource providing counseling, [...] sure to sign up for the [facility] patient portal, which gives you 22/11 access to your medical information ??? including these discharge instructions ??? using your computer, smartphone, or tablet. Just go to [employer] to get started. Questions? Call . [facility] would like to thank you for allowing us to assist you with your healthcare needs. MACI Benjamin RITA MOR, (or entry level marketing representative) have received the above patient education materials/instructions and have verbalized understanding: Patient Signature _ Date/Time Patient Rn Outpatient Surgery Signature (if needed) Date/Time Clinician/Hospital Rn Outpatient Surgery Signature (if needed) Date/Time documented in this encounter Plan of Treatment Not on file documented as of this encounter Visit Diagnoses Not on filedocumented in this encounter
--- OUTSIDE RECORDS SUMMARY | 2024-11-23 14:40 | XMS_ITS | Encounter Summary ---
Author Organization [employer] ([place], [place], [place], [place]) Address [address] [place] [address] Care Team Providers Care Adaptive Physical Education Teacher Name Role Phone Unavailable Primary Care Provider Unavailabl e Encounter Details Date Type Department Care Team (Late st Contact Info) Description 07/12/2018 Transcribed Document [facility] Rad[facility] [address] [place] [address] Provider, Layla Acosta MD Social [...]
[2024-11-23 14:50] LABS: Microscopic,Cath URINE MICROSCOPIC (MICROSCOPIC)
[2024-11-23 15:06] LABS: Appearance,Urine/Cath CLEAR (Clear); Bilirubin,Cath Negative (Negative); Blood, Urine/Cath TRACE-I (Negative); Color,Urine/Cath YELLOW (Yellow); Glucose,Urine/Cath (UA) Negative (Negative); Ketones,Urine/Cath Negative (Negative); Leukocyte Esterase,Cath TRACE (Negative); Nitrate,Cath POSITIVE (Negative); PH,Urine/Cath 6.0 (5.0-8.5); Protein,Urine/Cath TRACE (Negative); Specific Gravity, Urine/Cath 1.020 (1.005-1.030); Urobilinogen,Cath 0.2 EU/dl (0.2)
[2024-11-23 15:23] LABS: Bacteria,Urine/Cath 4+ /lpf; Squamous Epithelial Ur./Cath 0 #/hpf (0-5)
== END 2024-11-23 23:59 | disposition home or self-care (01) ==
LOC: LAB.DROPOF 14:37
PROVIDERS: PCP Nurse Practitioner Family; Visit Provider Nurse Practitioner Family
DX: R52 Pain, unspecified (principal)
CPT/HCPCS: 81001; 87086; 87088; 87186

== ENCOUNTER 2024-12-15 16:05 | Outpatient (CLI) | payer MEDICARE, OTHER, SELFPAY ==
--- OUTSIDE RECORDS SUMMARY | 2024-12-15 16:10 | XMS_ITS | Encounter Summary ---
Author Organization [employer] ([place], [place], [place], [place]) Address [address] [place] [address] Care Team Providers Care Flue Gas Analyst Name Role Phone Unavailable Primary Care Provider Unavailabl e Encounter Details Date Type Department Care Team (Late st Contact Info) Description 07/11/2018 Transcribed Document [facility] [address] [place] [address] Provider, Layla Acosta MD Social [...] Miscellaneous Notes * Cerner Conversion Note - [facility] Karla ProviderMD - 07/11/2018 7:23 PM EDT Care Management Assessment/Plan Entered On: 07/12/2018 18:02 EDT Performed On: 07/12/2018 18:00 EDT by Jessica Cote, Case Management-Viscosity Tester Care Management Note Care Management Note : pt admitted for tka, pt has her walker, pt has cpm in room, [facility]. pt stated she will have assistance at home. referral sent via [employer] Documentation Status Complete : Yes Jessica Cote Case Management-Viscosity Tester - 07/12/2018 18:00 EDT Discharge Planning Details Persons Assisting Patient at Home : Spouse Jessica Cote, Case Management-Viscosity Tester - 07/12/2018 18:00 EDT Info/List/Choices Provided Patient Offered Choice/Affiliations Explained : Yes List/Info Provided Pt/Fam/Support Person : Home health Jessica Cote, Case Management-Viscosity Tester - 07/12/2018 18:00 EDT Final Discharge Disposition Note-CM Discharge To Care Management : Home Health Services (Related/SOC within 3 days)-06 Name of Receiving Facility/Provider-CM : [facility] for cpm Jessica Cote, Case Management-Viscosity Tester - 07/12/2018 18:00 EDT documented in this encounter Plan of Treatment Not on file documented as of this encounter Visit Diagnoses Not on filedocumented in this encounter
--- OUTSIDE RECORDS SUMMARY | 2024-12-15 16:11 | XMS_ITS | Encounter Summary ---
Author Organization [employer] ([place], [place], [place], [place]) Address [address] [place] [address] Care Team Providers Care Maintenance Shop Welder Name Role Phone Unavailable Primary Care Provider Unavailabl e Encounter Details Date Type Department Care Team (Late st Contact Info) Description 07/13/2018 Transcribed Document [facility]iology [address] [place] [address] Provider, Layla Acosta MD Social [...] Miscellaneous Notes * Cerner Conversion Note - [facility] Karla Rojo MD - 07/13/2018 4:00 AM [...]
--- OUTSIDE RECORDS SUMMARY | 2024-12-15 16:11 | XMS_ITS | Encounter Summary ---
Author Organization [employer] ([place], [place], [place], [place]) Address [address] [place] [address] Care Team Providers Care Spray Painting Machine Operator Name Role Phone Unavailable Primary Care Provider Unavailabl e Encounter Details Date Type Department Care Team (Late st Contact Info) Description 07/12/2018 Transcribed Document [facility] Radiology [address] [place] [address] Provider, Layla Acosta MD Social [...]
--- OUTSIDE RECORDS SUMMARY | 2024-12-15 16:11 | XMS_ITS | Encounter Summary ---
Author Organization [employer] ([place], [place], [place], [place]) Address [address] [place] [address] Care Team Providers Care Metal Off Bearer Name Role Phone Unavailable Primary Care Provider Unavailabl e Encounter Details Date Type Department Care Team (Late st Contact Info) Description 07/11/2018 Transcribed Document [facility] [address] [place] [address] Provider, Layla Acosta MD Social [...] On: 07/12/2018 11:46 EDT by NENITA PEREZ, PT General Information, PT Visit Type, PT [...] By: FREDERIC DAAMS MD-ORT 07/11/2018 18:24 PT Treatment Instructions Ordered [...] NENITA PEREZ, PT - 07/12/2018 11:46 EDT [facility] Basic Mobility Turning Over in Bed : None Sit Down On/Stand Up From Chair w/ Arms : A little Move Back Lying to Sitting Side of Bed : None Moving To/From a Bed to Chair : A little Need to Walk in Hospital Room : A little Climbing 3-5 Steps with a Railing : A little AM-[facility] Basic Mobility Raw Score : 20 AM-[facility] Basic Mobility Standardized Score : 47.67 AM-[facility] Basic Mobility CMS 0-100% Score : 35.83 [...] NENITA PEREZ PT - 07/12/2018 11:46 EDT Custodial Goals Other PT LTG Grid Goal #1 [...]
--- OUTSIDE RECORDS SUMMARY | 2024-12-15 16:11 | XMS_ITS | Encounter Summary ---
Author Organization [employer] ([place], [place], [place], [place]) Address [address] [place] [address] Care Team Providers Care Rail Car Repair Carman Name Role Phone Unavailable Primary Care Provider Unavailabl e Encounter Details Date Type Department Care Team (Late st Contact Info) Description 07/11/2018 Transcribed Document [facility] Radiology [address] [place] [address] Provider, Layla Acosta MD Social [...] Miscellaneous Notes * Cerner Conversion Note - [facility] Karla ProviderMD - 07/11/2018 3:47 PM EDT [facility] Main OR IntraOp Summary Primary Physician: FREDERIC ADASM MD-ORT Finalized Date/Time: 07/11/18 16:06:00 Pt. Name: FLOR LUX JORDEN Royal/Sex: 1945 Female Med Rec #: [id number] Physician: FREDERIC ADAMS MD-ORT Financial #: [id number] Pt. Type: O Room/Bed: [facility] Admit/Disch: 07/11/18 04:54:00 - Institution: [facility] [place] Case Attendance Entry 1 Entry 2 Entry 3 Case Attendee FREDERIC ADAMS NAPIER, CYNTHIA A, CRNA Bland, Jordyn A RN -ORT Role Performed Surgeon/Proceduralist, IT INFRASTRUCTURE PROJECT MANAGER/Nurse Case Making Machine Operator Director Medicaid, First First Time In 07/11/18 14:44:00 07/11/18 [...] Attendee RUBEN NUNEZ Letitia, ST Combs, Leslie, Fish Protector Role Performed Scrub, First Scrub, Second Assistive [...] ATTENDEE ONUR REYES MD Role Performed Physician special ed assistant Vendor Anesthesiologist Time In 07/11/18 14:55:00 [...] 11 Case Attendee Soni Jose, BREEZY ZHENG, IT INFRASTRUCTURE PROJECT MANAGER Role Performed Director Medicaid, First IT INFRASTRUCTURE PROJECT MANAGER/Nurse Case Making Machine Operator Time In 07/11/18 15:10:00 07/11/18 15:39:00 Time Out 07/11/18 15:36:00 07/11/18 16:01:00 Procedure Knee Total Joint Knee Total Joint Replacement Replacement Other Attendee Superficial Wound Closed By: Last Modified By: Sigrid Fonseca RN Bland, Jordyn A, RN 07/11/18 16:05:53 07/11/18 16:05:53 [facility] IntraOp Case Attendance Audit 07/11/18 16:05:53 Territory Sales Manager: MICHAEL Modifier: MICHAEL 1 <+> Time Out [...] Procedure Knee Total Joint Replacement 07/11/18 15:54:27 Territory Sales Manager: MICHAEL Modifier: MICHAEL 9 <+> Time Out 9 <*> Procedure Knee Total Joint Replacement <+> 11 Case Attendee <+> 11 Role Performed <+> 11 Time In <+> 11 Procedure 07/11/18 15:36:52 Territory Sales Manager: MICHAEL Modifier: MICHAEL 10 <+> Time Out 10 <*> Procedure Knee Total Joint Replacement 07/11/18 15:18:09 Territory Sales Manager: MICHAEL Modifier: MICHAEL <+> 10 Case Attendee <+> 10 Role Performed <+> 10 Time In <+> 10 Procedure 07/11/18 15:02:08 Territory Sales Manager: MICHAEL Modifier: JORDYNBLAND 1 <*> Time In 07/11/18 14:15:00 1 <*> Procedure Knee Total Joint Replacement 07/11/18 15:01:47 Territory Sales Manager: MICHAEL Modifier: MICHAEL <+> 9 Case Attendee <+> 9 Role Performed <+> 9 Time In <+> 9 Procedure 07/11/18 14:57:15 Territory Sales Manager: MICHAEL Modifier: MICHAEL 1 <*> Procedure Knee [...] [facility] IntraOp Case Times Audit 07/11/18 16:05:47 Territory Sales Manager: MICHAEL Modifier: MICHAEL <+> 1 Out Room Time <+> 1 Stop Time 07/11/18 15:58:06 Territory Sales Manager: MICHAEL Modifier: MICHAEL 1 <*> Stop Time 07/11/18 15:59:00 07/11/18 15:57:03 Territory Sales Manager: MICHAEL Modifier: HAFSAAND <+> 1 Stop Time 07/11/18 14:47:11 Territory Sales Manager: MICHAEL Modifier: MICHAEL <+> 1 Start Time [...] [facility] IntraOp Counts Verification Audit 07/11/18 15:36:24 Territory Sales Manager: MICHAEL Modifier: MICHAEL <+> 2 Procedure <+> [...] [facility] IntraOp Counts Final Audit 07/11/18 15:54:33 Territory Sales Manager: MICHAEL Modifier: MICHAEL 1 <*> Procedure Knee [...] RN 07/11/18 14:39:49 [facility] IntraOp General Case Correctional Classification Counselor 1 Case Information OR OR 05 [facility] Case Level 1 Room Verified Yes Wound [...] BRG VANGRD TY TIB I-BEAM FIX Identification [id number] BIOMET [id number] Description Implant Quantity 2 1 1 Implant Site RIGHT KNEE RIGHT KNEE RIGHT KNEE Implant Identification Model Number Implant Identification Serial Number Implant [id number] Identification Lot Number Implant Dj Surg:Encore Biomet Biomet Identification Med:Edmund Dialysis Clinical Manager Name: Implant 600-15-000 [id number] Identification Catalog Number Implant Size Implant Has an Yes Yes Yes Expiration Date Implant Expiration 09/15/19 05/16/23 03/06/28 Date Wasted Radioactive Material Time Implanted Tissue Implant Continue for Tissue Implant Documentation Tissue Identification Number Graft Prep Per Dialysis Clinical Manager Instructions: Tissue Preparation Method: Reconstitution Solution: Reconstitution Solution Lot Number Reconstitution Solution Expiration Date: Thawing Solution Thawing Solution Lot Number Thawing Solution Expiration Date Preparation Materials, Other Preparation Materials, Other Lot Number Preparation Materials, Other Expiration Date Tissue Prepared/Processed By Dialysis Clinical Manager Paperwork Completed Implant Type Comment Last Modified By: Sigrid Fonseca RN Bland, Jordyn A, RN Bland, Jordyn A, RN 07/11/18 15:32:02 07/11/18 15:32:02 07/11/18 15:32:02 Entry 4 Entry 5 Type Implant (Synthetic) Implant (Synthetic) Implant Log Implant Type Hardware Hardware Tissue Implant Type Implant COMP FEM CR INTLOK VGRD PATELLA THIN Identification 62.5 [id number] Description Implant Quantity 1 1 Implant Site RIGHT KNEE RIGHT KNEE Implant Identification Model Number Implant Identification Serial Number Implant [id number] Identification Lot Number Implant Biomet Biomet Identification Dialysis Clinical Manager Name: Implant [id number] Identification Catalog Number Implant Size Implant Has an Yes Yes Expiration Date Implant Expiration 05/18/28 05/09/23 Date Wasted Radioactive Material Time Implanted Tissue Implant Continue for Tissue Implant Documentation Tissue Identification Number Graft Prep Per Dialysis Clinical Manager Instructions: Tissue Preparation Method: Reconstitution Solution: Reconstitution Solution Lot Number Reconstitution Solution Expiration Date: Thawing Solution Thawing Solution Lot Number Thawing Solution Expiration Date Preparation Materials, Other Preparation Materials, Other Lot Number Preparation Materials, Other Expiration Date Tissue Prepared/Processed By Dialysis Clinical Manager Paperwork Completed Implant Type Comment Last Modified By: Sigrid Fonseca RN Bland, Jordyn A, RN 07/11/18 15:32:02 07/11/18 15:32:02 [facility] IntraOp Implant Log Audit 07/11/18 15:32:02 Territory Sales Manager: MICHAEL Modifier: MICHAEL 1 <*> Implant Identification Description CEMENT BONE COBALT HV [id number] 1 <*> Implant Identification Lot Number [id number] 1 <*> Implant Identification Dialysis Clinical Manager Dj Surg:Encore Med:[place] Name: 1 <*> Implant Expiration Date 09/15/19 1 <*> Implant Site RIGHT KNEE 1 <*> Implant Quantity 2 1 <*> Implant Identification Catalog [id number] Number 1 <*> Implant Type Bone Cement 1 <*> Implant Has an Expiration Date Yes 1 <*> Type Implant (Synthetic) 2 <*> Implant Identification Description COMP TIB BRG VANGRD [id number] 2 <*> Implant Identification Dialysis Clinical Manager Biomet Name: 2 <*> Implant Expiration Date 05/16/23 2 <*> Implant Site RIGHT KNEE 2 <*> Implant Quantity 1 2 <*> Implant Identification Catalog [id number] Number 2 <*> Implant Type Hardware 2 <*> Implant Has an Expiration Date Yes 2 <*> Type Implant (Synthetic) 3 <*> Implant Identification Description TY TIB I-BEAM FIX BIOMET [id number] 3 <*> Implant Identification Dialysis Clinical Manager Biomet Name: 3 <*> Implant Expiration Date 03/06/28 3 <*> Implant Site RIGHT KNEE 3 <*> Implant Quantity 1 3 <*> Implant Identification Catalog [id number] Number 3 <*> Implant Type Hardware 3 <*> Implant Has an Expiration Date Yes 3 <*> Type Implant (Synthetic) 4 <+> Implant Identification Description 4 <+> Implant Identification Dialysis Clinical Manager Name: 4 <+> Implant Expiration Date 4 <*> Implant Site RIGHT KNEE 4 <*> Implant Quantity 1 4 <+> Implant Identification Catalog Number 4 <*> Implant Type Hardware 4 <*> Implant Has an Expiration Date Yes 4 <*> Type Implant (Synthetic) 5 <*> Implant Identification Description COMP FEM CR INTLOK VGRD 62.5 [id number] 5 <+> Implant Identification Lot Number 5 <*> Implant Identification Dialysis Clinical Manager Biomet Name: 5 <*> Implant Expiration Date 05/18/28 5 <*> Implant Site RIGHT KNEE 5 <*> Implant Quantity 1 5 <*> Implant Identification Catalog [id number] Number 5 <*> Implant Type Hardware 5 <*> Implant Has an Expiration Date Yes 5 <*> Type Implant (Synthetic) 6 <-> Implant Identification Description PATELLA THIN [id number] 6 <-> Implant Identification Lot Number [id number] <-> Implant Identification Dialysis Clinical Manager Biomet Name: 6 <-> Implant Expiration Date 05/09/23 6 <-> Implant Site RIGHT KNEE 6 <-> Implant Quantity 1 6 <-> Implant Identification Catalog 989232 Number 6 <-> Implant Type Hardware 6 <-> Implant Has an Expiration Date Yes 6 <-> Type Implant (Synthetic) 07/11/18 15:30:47 Territory Sales Manager: MICHAEL Modifier: JORDYNBLAND <+> 2 Implant Identification Description <+> 2 Implant Identification Dialysis Clinical Manager Name: 07/11/18 15:29:37 Territory Sales Manager: MICHAEL Modifier: MICHAEL <+> 3 Implant Identification Description <+> 3 Implant Identification Dialysis Clinical Manager Name: <+> 3 Implant Expiration Date <+> 3 Implant Identification Catalog Number 6 <*> Implant Identification Description PATELLA THIN [id number] 6 <+> Implant Site 07/11/18 15:22:42 Territory Sales Manager: MICHAEL Modifier: JORDYNBLAND <+> 5 Implant Identification Description <+> 5 Implant Identification Dialysis Clinical Manager Name: <+> 5 Implant Expiration Date <+> 5 Implant Identification Catalog Number 07/11/18 15:20:08 Territory Sales Manager: MICHAEL Modifier: MICHAEL <+> 6 Implant Identification Description <+> 6 Implant Identification Lot Number <+> 6 Implant Identification Dialysis Clinical Manager Name: <+> 6 Implant Expiration Date <+> 6 Implant Quantity <+> 6 Implant Identification Catalog Number <+> 6 Implant Type <+> 6 Implant Has an Expiration Date <+> 6 Type 07/11/18 15:16:19 Territory Sales Manager: MICHAEL Modifier: MICHAEL <+> 1 Implant Identification Description <+> 1 Implant Identification Lot Number <+> 1 Implant Identification Dialysis Clinical Manager Name: <+> 1 Implant Expiration Date <+> [...] - vancomycin 1Gm vial - 1000MG/10 ML [id number] Combo Med List Time Administered Route of [...] Positioned By STEWART SAWYER CRNA, Lucretia Calvert, Fish Protector, Sigrid Fonseca RN, RUBEN NUNEZ Position Verified [...] Intra Op Sign Out Audit 07/11/18 16:05:52 Territory Sales Manager: MICHAEL Modifier: MICHAEL <+> 1 RN Sign [...] [facility] IntraOp Surgical Procedures Audit 07/11/18 15:58:11 Territory Sales Manager: MICHAEL Modifier: JORDYNBLAND 1 <*> Procedure Knee Total Joint Replacement 1 <*> Stop 07/11/18 15:59:00 07/11/18 15:57:05 Territory Sales Manager: MICHAEL Modifier: HAFSAAND <+> 1 Stop SJE [...] Padded Under Cuff Applied By Calvert, Lucretia, Fish Protector Removed By RAMOS ALBA, PAC Times Start Time 07/11/18 14:46:00 Stop Time 07/11/18 15:54:00 Last Modified By: Sigrid Fonseca RN 07/11/18 15:54:51 JN IntraOp Tourniquet Audit 07/11/18 15:54:51 Territory Sales Manager: MICHAEL Modifier: MICHAEL <+> 1 Stop Time Case Comments <None> Finalized By: Sigrid Fonseca, RN Document Signatures Signed By: Sigrid Fonseca RN 07/11/18 16:06 documented in this encounter Plan of Treatment Not on file documented as of this encounter Visit Diagnoses Not on filedocumented in this encounter
--- OUTSIDE RECORDS SUMMARY | 2024-12-15 16:11 | XMS_ITS | Encounter Summary ---
Author Organization [employer] ([place], [place], [place], [place]) Address [address] [place] [address] Care Team Providers Care Patient Biller Name Role Phone Unavailable Primary Care Provider Unavailabl e Encounter Details Date Type Department Care Team (Late st Contact Info) Description 07/11/2018 Transcribed Document [facility] Radiology 1 [place] [address] Provider, Layla Acosta MD Social [...] Gudino M.D. Electronically signed by [facility] Conversion Sole Splitter Cerner at 09/22/2022 11:00 AM CDT documented in this encounter Plan of Treatment Not on file documented as of this encounter Visit Diagnoses Not on filedocumented in this encounter
--- OUTSIDE RECORDS SUMMARY | 2024-12-15 16:11 | XMS_ITS | Encounter Summary ---
Author Organization [employer] ([place], [place], [place]) Address [address] [place] [address] Care Team Providers Care Capability Lead Name Role Phone Unavailable Primary Care Provider Unavailabl e Encounter Details Date Type Department Care Team (Late st Contact Info) Description 07/13/2018 Transcribed Document [facility] Radiology 1 [place] [address] Provider, Layla Acosta MD Social [...] Barley. Bulgur wheat. Millet. Bran muffins. Popcorn. Andes wafer crackers. ?? Vegetables Sweet potatoes. Spinach. Kale. Artichokes. Cabbage. Broccoli. Green peas. Carrots. Squash. ?? Fruits Berries. Pears. Apples. Oranges. Avocados. Prunes and raisins. Dried figs. ?? Meats and Other Protein Sources Difficult Run, kidney, hoff, and soy beans. Split peas. [...] alphonso has 11 g of protein. ?? Tarpley seeds ??? 1 oz has 5.5 g [...] floor. ?? Place frequently used items in ivlm-jh-vcsfo places ?? Keep electrical cables out of [...] ? Using the bathroom. ? Using household tool marker or toxic chemicals. ? Touching or taking [...] your foot or ankle. ? Increased pain. Electronically signed by Layla Kang Conversion Entry Level Marketing Assistant Jenniferner at 09/22/2022 11:00 AM CDT documented in this encounter Plan of Treatment Not on file documented as of this encounter Visit Diagnoses Not on filedocumented in this encounter
--- OUTSIDE RECORDS SUMMARY | 2024-12-15 16:11 | XMS_ITS | Encounter Summary ---
Author Organization [employer] ([place], [place], [place], [place]) Address [address] [place] [address] Care Team Providers Care Cable Splicer Assistant Name Role Phone Unavailable Primary Care Provider Unavailabl e Encounter Details Date Type Department Care Team (Late st Contact Info) Description 07/12/2018 Transcribed Document [facility] 1 [place] [address] ProviderLayla MD Social History Tobacco [...] 07/12/2018 18:06 EDT by Jessica Cote Case Management-Gold Leaf Layer DC Instructions HWD Medical Equipment For Home Use : BLUEGRASS BRACING FOR CPM RENTAL Home Health Services : [facility] [phone] Jessica Cote Case Management-Gold Leaf Layer - 07/12/2018 18:06 EDT documented in this encounter Plan of Treatment Not on file documented as of this encounter Visit Diagnoses Not on filedocumented in this encounter
--- OUTSIDE RECORDS SUMMARY | 2024-12-15 16:11 | XMS_ITS | Encounter Summary ---
Author Organization [facility] ([place], [place], [place], [place]) Address [address] [place] [address] Care Team Providers Care Fretted Instrument Repairer Name Role Phone Unavailable Primary Care Provider Unavailabl e Encounter Details Date Type Department Care Team (Late st Contact Info) Description 07/12/2018 Transcribed Document [facility] Radiology 1 [place] [address] Provider, Layla Acotsa MD Social History Tobacco Use Types Packs/Day [...] RENAL CONSULT NOTE WITH [facility] CONSULTING PHYSICIAN: Carroll Martin M.D. REASON FOR CONSULTATION: Elevated creatinine. CHIEF COMPLAINT: Knee replacement. HISTORY OF PRESENT ILLNESS: Patient is a 72-year-old white female with history of CKD in the past, follows with tip cutter in [place]. Per patient reports, her baseline creatinine around [...] may be [facility] tip cutter. 3. Hypertension. Blood pressure was low yesterday, hold angiotensin converting enzyme inhibitor and monitor. 4. Hyperkalemia. Low-potassium diet. Kayexalate p.r.n., . 5. Status post right total knee arthroplasty. 6. Patient is high risk and complex patient. Gen Lam M.D. Dict: 07/12/2018 15:51:02 Trans: 07/13/2018 00:22:40 Processed: 07/13/2018 11:15:54 [place] CC1: Gen Lam M.D. documented in this encounter Plan of Treatment Not on file documented as of this encounter Visit Diagnoses Not on filedocumented in this encounter
--- OUTSIDE RECORDS SUMMARY | 2024-12-15 16:11 | XMS_ITS | Clinical Summary ---
Author Organization [employer] ([place], [place], [place], [place]) Address [address] [place] [address] Care Team Providers Care Brick Burner Name Role Phone Unavailable Primary Care Provider [...]
--- OUTSIDE RECORDS SUMMARY | 2024-12-15 16:11 | XMS_ITS | Encounter Summary ---
Author Organization [employer] ([place], [place], [place], [place]) Address [address] [place] [address] Care Team Providers Care Mill Roll Rewinder Name Role Phone Unavailable Primary Care Provider Unavailabl e Encounter Details Date Type Department Care Team (Late st Contact Info) Description 06/30/2018 Transcribed Document [facility] Radiology [address] [place] [address] Provider, Layla Acosta MD Social [...] Source : Stated Height Entry Format : [place] Height, Feet : 5 ft(Converted to: 152 cm, 60 Inch) Height, Inches : 0 Inch(Converted to: 0 ft 0 Inch, 0.00 cm) Clinical Height : 152.4 cm Weight Source : Standing scale Weight Entry Format : [place] Clinical Dosing Weight : 79.55 kg Weight, Pounds : 175 lb Body Surface Area (BSA) : 1.77 m2 Body Mass Index : 34.3 kg/m2 (HI) [place] Body Weight : 45 kg KENNY BECERRA [...] #2 Relationship : - Primary Language : Malagasy Preferred Communication Mode : Verbal Communication Barrier [...]
--- OUTSIDE RECORDS SUMMARY | 2024-12-15 16:11 | XMS_ITS | Encounter Summary ---
Author Organization [employer] ([place], [place], [place], [place]) Address [address] [place] [address] Care Team Providers Care Obstetrics Technician Name Role Phone Unavailable Primary Care Provider Unavailabl e Encounter Details Date Type Department Care Team (Late st Contact Info) Description 07/12/2018 Transcribed Document [facility] Radiology [address] [place] [address] Provider, Layla Acosta MD Social [...]
--- OUTSIDE RECORDS SUMMARY | 2024-12-15 16:11 | XMS_ITS | Encounter Summary ---
Author Organization [employer] ([place], [place], [place], [place]) Address [address] [place] [address] Care Team Providers Care Investigative Shopper Name Role Phone Unavailable Primary Care Provider Unavailabl e Encounter Details Date Type Department Care Team (Late st Contact Info) Description 07/12/2018 Transcribed Document [facility] Radiology 1 [place] [address] Provider, Layla Acosta MD Social [...] TIA (transient ischemic attack) / SNOMED CT 269677276 / Confirmed HTN (hypertension) / SNOMED CT 3157246703 / Confirmed Hyperlipidemia / SNOMED CT 04660996 / Confirmed Fibromyalgia / SNOMED CT 634713410 / Confirmed Circulation problem / SNOMED CT 9108183070 / Confirmed Diabetes / SNOMED CT 534274034 / Confirmed Depression / SNOMED CT 08977072 / Confirmed CAD (coronary artery disease) / SNOMED CT 73833990 / Confirmed At risk for sleep apnea / IMO [id number] / Confirmed Arthritis / SNOMED CT 0610000 / Confirmed Anxiety / SNOMED CT 91873046 / Confirmed, Active Problems (11) Anxiety Arthritis [...]
--- OUTSIDE RECORDS SUMMARY | 2024-12-15 16:11 | XMS_ITS | Encounter Summary ---
Author Organization [employer] ([place], [place], [place], [place]) Address [address] [place] [address] Care Team Providers Care Flow Coordinator Name Role Phone Unavailable Primary Care Provider Unavailabl e Encounter Details Date Type Department Care Team (Late st Contact Info) Description 07/13/2018 Transcribed Document [facility] Radiology [address] [place] [address] ProviderLayla MD Social History Tobacco [...] Notes * Cerner Conversion Note - [facility] Karla ProviderMD - 07/13/2018 6:00 AM EDT [...]
--- OUTSIDE RECORDS SUMMARY | 2024-12-15 16:11 | XMS_ITS | Encounter Summary ---
Author Organization [employer] ([place], [place], [place], [place]) Address [address] [place] [address] Care Team Providers Care Supervisor Estimator And Drafter Name Role Phone Unavailable Primary Care Provider Unavailabl e Encounter Details Date Type Department Care Team (Late st Contact Info) Description 07/11/2018 Transcribed Document [facility] Radiology [address] [place] [address] ProviderLayla MD Social History Tobacco [...]
--- OUTSIDE RECORDS SUMMARY | 2024-12-15 16:11 | XMS_ITS | Encounter Summary ---
Author Organization [employer] ([place], [place], [place], [place]) Address [address] [place] [address] Care Team Providers Care Senior Service Technician Name Role Phone Unavailable Primary Care Provider Unavailabl e Encounter Details Date Type Department Care Team (Late st Contact Info) Description 07/13/2018 Transcribed Document [facility] Radiology [address] [place] [address] Provider, Layla Acosta MD Social [...] Note - [facility] Karla ProviderMD - 07/13/2018 3:00 AM EDT Program Therapist Details Entered On: 07/13/2018 1:01 EDT Performed [...]
--- OUTSIDE RECORDS SUMMARY | 2024-12-15 16:11 | XMS_ITS | Encounter Summary ---
Author Organization [employer] ([place], [place], [place], [place]) Address [address] [place] [address] Care Team Providers Care Admitting Office Escort Name Role Phone Unavailable Primary Care Provider Unavailabl e Encounter Details Date Type Department Care Team (Late st Contact Info) Description 07/11/2018 Transcribed Document [facility] Radiology [address] [place] [address] Provider, Layla Acosta MD Social [...] : Supervision or set-up Toileting Device : Neswo-uw-hwh commode Toilet Transfer Assist Level : Supervision or set-up Toilet Transfer Device : Belt, gait, Walker, rolling, Epncw-gc-xvh commode JACK LUCIO OTR/Carolyn 07/12/2018 11:48 EDT [...]
--- OUTSIDE RECORDS SUMMARY | 2024-12-15 16:11 | XMS_ITS | Encounter Summary ---
Author Organization [employer] ([place], [place], [place], [place]) Address [address] [place] [address] Care Team Providers Care Lacing String Cutter Name Role Phone Unavailable Primary Care Provider Unavailabl e Encounter Details Date Type Department Care Team (Late st Contact Info) Description 07/13/[address] [facility] Radiology 1 [place] [address] Provider, Layla Acosta MD Social [...] * Cerner Conversion Note - [facility] Karla Rojo MD - 07/13/2018 11:49 AM EDT [facility] [address] , [place] [address] Patient Copy Patient Information: Name: FLOR LUX Current Date: 07/13/2018 10:49:37 : 1945 Patient Address: [place] [address] Patient Attending Physician: FREDERIC ADAMS MD-ORT Primary Care Provider: RODO SANFORD MD-[facility] Primary Care Provider Discharge Diagnosis: Weakness Weight on Admission: 175 lb, 0 oz Comment: Follow-up Instructions: With: Address: When: Follow up with specialty services Within 2 to 3 days Comments: Nephrology With: Address: When: Follow up with primary care provider Within 2 to 3 days With: Address: When: DEYSI MEJIA [address] [facility], [address] [place] [address] [place] (1) 11:15 AM Comments: Appointment has been made Discharge Instructions: Medical Equipment for Home Use: BLUEGRASS BRACING FOR CPM RENTAL Home Health Services: [facility] [phone] Immunizations Documented During Stay: No Immunizations Found [...] Barley. Bulgur wheat. Millet. Bran muffins. Popcorn. [place] wafer crackers. ?? Vegetables Sweet potatoes. Spinach. Kale. Artichokes. Cabbage. Broccoli. Green peas. Carrots. Squash. ?? Fruits Berries. Pears. Apples. Oranges. Avocados. Prunes and raisins. Dried figs. ?? Meats and Other Protein Sources [place], kidney, hoff, and soy beans. Split peas. [...] alphonso has 11 g of protein. ?? [place] seeds ??? 1 oz has 5.5 g [...] floor. ?? Place frequently used items in uhac-gr-aellb places ?? Keep electrical cables out of [...] ? Using the bathroom. ? Using household fruit or nut grower or toxic chemicals. ? Touching or taking [...] a day sleeper or work a shift boss. Some people have thoughts about suicide while [...] may report side effects to FDA at 2-020-CIO-7830. What other drugs will affect gabapentin? Taking gabapentin with other drugs that make you sleepy can worsen this effect. Ask your doctor before taking a sleeping pill, narcotic medication, muscle relaxer, or medicine for anxiety, depression, or seizures. Other drugs may interact with gabapentin, including prescription and fgts-rxn-qqiybgr medicines, vitamins, and herbal products. Tell your [...] to ensure that the information provided by FullStory. ('Multum') is accurate, up-to-date, and complete, but no guarantee is made to that effect. Drug information contained herein may be time sensitive. Newser information has been compiled for use by healthcare practitioners and consumers in the [place] and therefore Newser does not warrant that uses outside of the [place] are appropriate, unless specifically indicated otherwise. GridBridges drug information does not endorse drugs, diagnose patients or recommend therapy. GridBridges drug information is an informational resource designed [...] effective or appropriate for any given patient. Newser does not assume any responsibility for any aspect of healthcare administered with the aid of information Newser provides. The information contained herein is not intended to cover all possible uses, directions, precautions, warnings, drug interactions, allergic reactions, or adverse effects. If you have questions about the drugs you are taking, check with your doctor, nurse or pharmacist. Copyright 3302-5067 FullStory. Version: 14.01. Revision Date: 02/08/2017. oxycodone (ox [...] The extended-release form of oxycodone is for sybrbu-xkw-csrkf treatment of pain and should not be [...] against the law. Stop taking all other azybzs-dks-dnzkv narcotic pain medicines when you start taking [...] may report side effects to FDA at 7-882-HLE-7216. What other drugs will affect oxycodone? You [...] may affect oxycodone. This includes prescription and ojup-fxm-cnvyncb medicines, vitamins, and herbal products. Not all [...] to ensure that the information provided by FullStory. ('Multum') is accurate, up-to-date, and complete, but no guarantee is made to that effect. Drug information contained herein may be time sensitive. Newser information has been compiled for use by healthcare practitioners and consumers in the [place] and therefore Newser does not warrant that uses outside of the [place] are appropriate, unless specifically indicated otherwise. Newser's drug information does not endorse drugs, diagnose patients or recommend therapy. GridBridges drug information is an informational resource designed [...] effective or appropriate for any given patient. Newser does not assume any responsibility for any aspect of healthcare administered with the aid of information [facility] provides. The information contained herein is not intended to cover all possible uses, directions, precautions, warnings, drug interactions, allergic reactions, or adverse effects. If you have questions about the drugs you are taking, check with your doctor, nurse or pharmacist. Copyright 4852-1361 FullStory. Version: 13.02. Revision Date: 03/29/2018. tramadol (TRAM [...] extended-release form of this medicine is for arrzbg-gzz-jqqoi treatment of pain. This form of tramadol [...] against the law. Stop taking all other qfwpsj-nnu-vtspj narcotic pain medications when you start taking [...] may report side effects to FDA at 8-870-ZNL-1222. What other drugs will affect tramadol? You [...] may affect tramadol. This includes prescription and pmaa-oet-kcxhdzp medicines, vitamins, and herbal products. Not all [...] to ensure that the information provided by FullStory. ('Multum') is accurate, up-to-date, and complete, but no guarantee is made to that effect. Drug information contained herein may be time sensitive. Bluwantum information has been compiled for use by healthcare practitioners and consumers in the [place] and therefore Pet Wirelessum does not warrant that uses outside of the [place] are appropriate, unless specifically indicated otherwise. Newser's drug information does not endorse drugs, diagnose patients or recommend therapy. Newser's drug information is an informational resource designed [...] for any given patient. [facility] does not assume any responsibility for any aspect of healthcare administered with the aid of information [facility] provides. The information contained herein is not intended to cover all possible uses, directions, precautions, warnings, drug interactions, allergic reactions, or adverse effects. If you have questions about the drugs you are taking, check with your doctor, nurse or pharmacist. Copyright 6969-3219 [facility] Center[facility]&D. Version: 18.02. Revision Date: 03/29/2018. CIGARETTE SMOKING: The facts are clear, cigarette smoking will shorten your life. Smoking can cause many illnesses along the way. As a healthcare provider, we recommend that you stop smoking. Assistance with quitting is available by contacting 9-980-LIZG-NOW. This is a free resource providing counseling, [...] Be sure to sign up for the Gatekeeper System patient portal, which gives you 22/11 access to your medical information ??? including these discharge instructions ??? using your computer, smartphone, or tablet. Just go to Archy to get started. Questions? Call . [facility] would like to thank you for allowing us to assist you with your healthcare needs. MACI Benjamin RITA MOR, (or sales representative canvas products) have received the above patient education materials/instructions and have verbalized understanding: Patient Signature _ Date/Time Patient Television Installer Helper Signature (if needed) Date/Time Clinician/Hospital Television Installer Helper Signature (if needed) Date/Time documented in this encounter Plan of Treatment Not on file documented as of this encounter Visit Diagnoses Not on filedocumented in this encounter
--- OUTSIDE RECORDS SUMMARY | 2024-12-15 16:11 | XMS_ITS | Encounter Summary ---
Author Organization [employer] ([place], [place], [place], [place]) Address [address] [place] [address] Care Team Providers Care School Business Manager Name Role Phone Unavailable Primary Care Provider Unavailabl e Encounter Details Date Type Department Care Team (Late st Contact Info) Description 07/12/2018 Transcribed Document [facility] Radiology 1 [place] [address] Provider, Layla Acosta MD Social [...] LOW 07/12/2018 05:06 Creatinine Level 2.74 mg/dL [place] 07/12/2018 05:06 eGFR 21 mL/min/1.73m2 LOW 07/12/2018 05:06 Bun/Creatinine 11.3 07/12/2018 05:06 Sodium Level 133 mmol/L LOW 07/12/2018 05:06 Potassium Level 5.7 mmol/L [place] 07/12/2018 05:06 Chloride Level 104 mmol/L 07/12/2018 05:06 Carbon Dioxide Level 21 mmol/L 07/12/2018 05:06 Anion Gap 14 07/12/2018 05:06 Blood Urea Nitrogen 31 mg/dL [place] 07/12/2018 05:06 Glucose Level 366 mg/dL [place] 07/12/2018 05:06 Calcium Level 8.2 mg/dL LOW [...]
--- OUTSIDE RECORDS SUMMARY | 2024-12-15 16:11 | XMS_ITS | Encounter Summary ---
Author Organization [employer] ([place], [place], [place], [place]) Address [address] [place] [address] Care Team Providers Care Plant Etiologist Name Role Phone Unavailable Primary Care Provider Unavailabl e Encounter Details Date Type Department Care Team (Late st Contact Info) Description 07/11/[address] [facility] Radiology 1 [place] [address] Provider, Layla Acosta MD Social [...] [facility] Karla ProviderMD - 07/11/2018 4:23 PM EDT [...]
--- OUTSIDE RECORDS SUMMARY | 2024-12-15 16:11 | XMS_ITS | Referral Summary ---
Author Organization [employer] ([place], [place], [place], [place]) Address [address] [place] [address] Care Team Providers Care Product Merchandiser Name Role Phone Unavailable Primary Care Provider [...]
--- OUTSIDE RECORDS SUMMARY | 2024-12-15 16:11 | XMS_ITS | Encounter Summary ---
Author Organization [facility] ([place], [place], [place], [place]) Address [address] [place] [address] Care Team Providers Care Pelletizer Name Role Phone Unavailable Primary Care Provider Unavailabl e Encounter Details Date Type Department Care Team (Late st Contact Info) Description 07/11/2018 Transcribed Document [facility] 1 [place] [address] Provider, Layla Acosta MD Social [...] [facility] Karla Rojo MD - 07/11/2018 7:23 [...]
--- OUTSIDE RECORDS SUMMARY | 2024-12-15 16:11 | XMS_ITS | Clinical Summary ---
Author Organization [facility] Address [address] [place] [address] Care Team Providers Care Fork Operator Name Role Phone Haroldo Key MD Primary Care Provider [phone] Allergies Active Allergy Reactions Criticality Noted Date [...] How often do you attend chur or moravian services? Never 07/25/2024 Do you belong to any clubs o r organizations such as christian groups, unions, fraternal or athletic groups, or [...] more drinks on one occasion? Never 07/25/2024 [facility] - Occupational [...] any time in the past 12 m [facility], were you homeless or living in a penitentiary (including now)? No 07/25/2024 Utilities Answer Date Recorded In the past 12 months has e [employer], gas, oil, or water Chargeback threatened to shut off services in your [...] Visit [place] [facility] [address], [address] [place] [address] Lucila Johnson, GAME BIRD FARMER [address] [place] [address] Health Maintenance Due Date Last Done Comments [facility]-Bone Density Scan 1945 [facility]-Depression Screening 1945 [facility]-Medicare Annual Wellness (AWV) 1945 [facility]-Infant/Child/Adol SDOH Screenings 1945 Diabetes: Dental Exam 1955 [facility]-Pneumococcal Vaccine: 50 + Years (1 of 2 - PCV) 1965 [facility]-Zoster Vaccines (1 of 2) 1996 [facility]-RSV Vaccine: 60+ Years o r (1 - 1-dose 75+ series) 2021 HOU-RQVAS-49 Vaccine (1 - 20 24-25 season) 2024 [...] 5.7(H) <5.7 % 07/23/2024 8:45 AM EDT [facility] Blood Venous blood specimen / Unknown Venipuncture / Unknown 07/23/2024 4:28 AM EDT 07/23/2024 4:31 AM EDT Narrative [facility] - 07/23/2024 8:45 AM EDT HA1C Interpretive Data: Diagnosis of Diabetes: Diabetic > or = 6.5% Pre-diabetic 5.7 to 6.4% Non-diabetic < or = 5.6% Glycemic Targets for Type I and Type II Diabetics: Non- Adults <7.0% Adults <6.0% Children and Adolescents <7.5% Source: [place] Diabetes Association. Standards of medical care in diabetes,2017. Diabetes Care.2017:40 (suppl 1):S1-S135. HbA1c assay performed by an ion-exchange chromatography method that is certified traceable to the DCCT. us Timoteo Zuluaga MD LAB BLOOD ORDERABLES Final Re sult [facility] [address] [place] [address] * Hepatitis C Antibody - ED (07/23/2024 4:22 AM EDT) [facility] Hepatitis C Antibody Negative Negative 07/23/2024 5:56 AM EDT [facility] Blood Venous blood specimen / Unknown Venipuncture / Unknown 07/23/2024 4:22 AM EDT 07/23/2024 4:32 AM EDT us Timoteo Zuluaga MD LAB BLOOD ORDERABLES Final Re sult Performing Organization Address City/[facility] de Phone Number [facility]ALTH[facility] [address] [place] [address] from Last 3 Months or Most Recently Relevant to Health Maintenance Insurance [facility] [place]ICAID-[place] MEDICARE Advance Directives Documents on File Type Date Recorded Patient Alarm Signaler Expl anation Advance Directives and Livin g Will 07/28/2024 12:52 PM * DNR/DNI (Latest Code Status on File) Date Activated Date Inactivated Comments 07/23/2024 8:59 AM 07/27/2024 2:32 PM Question Answer Comments DNR determined on/before admission date? Yes Care Teams Fork Operator Relationship Specialty Start Date End Date Haroldo Key MD [address] [facility] [address] [address] PCP - General 09/12/20
--- OUTSIDE RECORDS SUMMARY | 2024-12-15 16:11 | XMS_ITS | Encounter Summary ---
Author Organization [employer] ([place], [place], [place], [place]) Address [address] [place] [address] Care Team Providers Care Life Cycle Assessment Analyst Name Role Phone Unavailable Primary Care Provider Unavailabl e Encounter Details Date Type Department Care Team (Late st Contact Info) Description 07/30/2019 Transcribed Document [facility] Radiology 1 [place] [address] Provider, Layla Acosta MD Social [...] from sitting : None 7. Bending to floor/cone picker an object : None WINSOME PATEL [...]
--- OUTSIDE RECORDS SUMMARY | 2024-12-15 16:11 | XMS_ITS | Encounter Summary ---
Author Organization [employer] ([place], [place], [place], [place]) Address [address] [place] [address] Care Team Providers Care Kiss Setter Hand Name Role Phone Unavailable Primary Care Provider Unavailabl e Encounter Details Date Type Department Care Team (Late st Contact Info) Description 07/12/2018 Transcribed Document [facility] Radiology 1 [place] [address] Provider, Layla Acosta MD [...] [facility] Karla Rojo MD - 07/12/2018 7:07 PM EDT [facility] [address] , [place] [address] Patient Copy Patient Information: Name: FLOR LUX Current Date: 07/12/2018 18:07:05 : 1945 Patient Address: [place] [address] Patient Attending Physician: FREDERIC ADAMS MD-ORT Primary Care Provider: RODO SANFORD MD-[facility] Primary Care Provider Discharge Diagnosis: Weight on Admission: 175 lb, 0 oz Comment: Follow-up Instructions: With: Address: When: DYESI MEJIA [address] [facility] [place] [phone] Business (1) 11:15 AM Comments: Appointment has been made Discharge Instructions: Medical Equipment for Home Use: BLUEGRASS BRACING FOR CPM RENTAL Home Health Services: [facility] [phone] Immunizations Documented During Stay: No Immunizations Found [...] Barley. Bulgur wheat. Millet. Bran muffins. Popcorn. [place] wafer crackers. ?? Vegetables Sweet potatoes. Spinach. Kale. Artichokes. Cabbage. Broccoli. Green peas. Carrots. Squash. ?? Fruits Berries. Pears. Apples. Oranges. Avocados. Prunes and raisins. Dried figs. ?? Meats and Other Protein Sources [place], kidney, hoff, and soy beans. Split peas. [...] alphonso has 11 g of protein. ?? [place] seeds ??? 1 oz has 5.5 g [...] floor. ?? Place frequently used items in ddxh-qd-yoyys places ?? Keep electrical cables out of [...] ? Using the bathroom. ? Using household logistics loss prevention manager or toxic chemicals. ? Touching or taking [...] a day sleeper or work a night warehouse manager. Some people have thoughts about suicide [...] may report side effects to FDA at 4-460-GJY-5783. What other drugs will affect gabapentin? Taking gabapentin with other drugs that make you sleepy can worsen this effect. Ask your doctor before taking a sleeping pill, narcotic medication, muscle relaxer, or medicine for anxiety, depression, or seizures. Other drugs may interact with gabapentin, including prescription and ztaq-lnz-vhtngam medicines, vitamins, and herbal products. Tell your [...] to ensure that the information provided by Revcaster. ('[employer]') is accurate, up-to-date, and complete, but no guarantee is made to that effect. Drug information contained herein may be time sensitive. [employer] information has been compiled for use by healthcare practitioners and consumers in the [place] and therefore [employer] does not warrant that uses outside of the [place] are appropriate, unless specifically indicated otherwise. LIAs drug information does not endorse drugs, diagnose patients or recommend therapy. LIAs drug information is an informational resource designed [...] effective or appropriate for any given patient. [employer] does not assume any responsibility for any aspect of healthcare administered with the aid of information [employer] provides. The information contained herein is not intended to cover all possible uses, directions, precautions, warnings, drug interactions, allergic reactions, or adverse effects. If you have questions about the drugs you are taking, check with your doctor, nurse or pharmacist. Copyright 1759-4200 Revcaster. Version: 14.01. Revision Date: 02/08/2017. oxycodone (ox [...] The extended-release form of oxycodone is for nexlsv-hnv-bhkoh treatment of pain and should not be [...] against the law. Stop taking all other phqhhc-zll-zwzdd narcotic pain medicines when you start taking [...] may report side effects to FDA at 3-249-VQF-2608. What other drugs will affect oxycodone? You [...] may affect oxycodone. This includes prescription and ejwe-pep-pmxzdgj medicines, vitamins, and herbal products. Not all [...] to ensure that the information provided by Revcaster. ('Multum') is accurate, up-to-date, and complete, but no guarantee is made to that effect. Drug information contained herein may be time sensitive. Vent[employer]ite information has been compiled for use by healthcare practitioners and consumers in the [place] and therefore [employer] does not warrant that uses outside of the [place] are appropriate, unless specifically indicated otherwise. [employer]'s drug information does not endorse drugs, diagnose patients or recommend therapy. LIAs drug information is an informational resource designed [...] effective or appropriate for any given patient. [employer] does not assume any responsibility for any aspect of healthcare administered with the aid of information [employer] provides. The information contained herein is not intended to cover all possible uses, directions, precautions, warnings, drug interactions, allergic reactions, or adverse effects. If you have questions about the drugs you are taking, check with your doctor, nurse or pharmacist. Copyright 5824-2685 Revcaster. Version: 13.02. Revision Date: 03/29/2018. tramadol (TRAM [...] extended-release form of this medicine is for ikklng-fng-gfoie treatment of pain. This form of tramadol [...] against the law. Stop taking all other phqldl-vkb-svjah narcotic pain medications when you start taking [...] may report side effects to FDA at 4-354-QPT-5492. What other drugs will affect tramadol? You [...] may affect tramadol. This includes prescription and grgg-ure-uhewtbe medicines, vitamins, and herbal products. Not all [...] to ensure that the information provided by Revcaster. ('Multum') is accurate, up-to-date, and complete, but no guarantee is made to that effect. Drug information contained herein may be time sensitive. [employer] information has been compiled for use by healthcare practitioners and consumers in the [place] and therefore [employer] does not warrant that uses outside of the [place] are appropriate, unless specifically indicated otherwise. [employer]'s drug information does not endorse drugs, diagnose patients or recommend therapy. LIAs drug information is an informational resource designed [...] effective or appropriate for any given patient. [facility] does not assume any responsibility for any aspect of healthcare administered with the aid of information [facility] provides. The information contained herein is not intended to cover all possible uses, directions, precautions, warnings, drug interactions, allergic reactions, or adverse effects. If you have questions about the drugs you are taking, check with your doctor, nurse or pharmacist. Copyright 9799-5833 [facility]12Return. Version: 18.02. Revision Date: 03/29/2018. CIGARETTE SMOKING: The facts are clear, cigarette smoking will shorten your life. Smoking can cause many illnesses along the way. As a healthcare provider, we recommend that you stop smoking. Assistance with quitting is available by contacting 2-830-GSJO-NOW. This is a free resource providing counseling, [...] sure to sign up for the My [employer] patient portal, which gives you 22/11 access to your medical information ??? including these discharge instructions ??? using your computer, smartphone, or tablet. Just go to CellSpin to get started. Questions? Call . [facility] would like to thank you for allowing us to assist you with your healthcare needs. IMACI RITA MOR, (or assisted sales representative) have received the above patient education materials/instructions and have verbalized understanding: Patient Signature _ Date/Time Patient Spin Tank Tender Signature (if needed) Date/Time Clinician/Hospital Spin Tank Tender Signature (if needed) Date/Time documented in this encounter Plan of Treatment Not on file documented as of this encounter Visit Diagnoses Not on filedocumented in this encounter
--- OUTSIDE RECORDS SUMMARY | 2024-12-15 16:11 | XMS_ITS | Encounter Summary ---
Author Organization [employer] ([place], [place], [place], [place]) Address [address] [place] [address] Care Team Providers Care Wood Lather Name Role Phone Unavailable Primary Care Provider Unavailabl e Encounter Details Date Type Department Care Team (Late st Contact Info) Description 07/13/2018 Transcribed Document [facility] 1 [place] [address] Provider, Layla Acosta MD Social [...] On: 07/13/2018 10:08 EDT by Nany Walker, Heliotherapist Lead General Information, PT Visit Type, PT [...] within reach, Other: ICE, SCUDS. Nany Walker Heliotherapist Lead - 07/13/2018 13:09 EDT RN/PCT Informed [...] Established w Patient : Yes Tsy[place], Nany, Heliotherapist Lead - 07/13/2018 12:22 EDT Shelter Goals Other PT LTG Grid Goal #1 Goal #2 Other : Patient will participate in ther ex training for improved strength with gait and transfers. Patient will complete 2 steps with left rail and min assist for safe access to home at discharge. Date to Meet : 07/15/2018 EDT 07/15/2018 EDT Goal Status : Goal met Goal met Nany Walker Heliotherapist Lead - 07/13/2018 12:22 EDT Nany Walker Heliotherapist Lead - 07/13/2018 12:22 EDT Treatment Note Subjective Comment : Pt agreeable to therapy. Nany Walker Heliotherapist Lead - 07/13/2018 13:09 EDT Patient's Response to Treatment : Good. Nany Walker Heliotherapist Lead - 07/13/2018 12:22 EDT Additional Objective [...] therex, 13min gait, 10min theract Nany Walker Heliotherapist Lead - 07/13/2018 13:09 EDT Assessment : Pt met goal #1, #2. Plan for Treatment : Home today with family assistance and HHPT. Nany Walker Heliotherapist Lead - 07/13/2018 12:22 EDT Pain Assessment Pain Scaled Used : 0-10 Pain scale Pain Score Pre-Intervention : 4 Pain Score During-Intervention : 8 Pain Score Post-Intervention. : 6 Pain Comment : 10/09 pain, nurse aware. Nany Walker Heliotherapist Lead - 07/13/2018 12:22 EDT Image 1 - Images currently included in the form version of this document have not been included in the text rendition version of the form. [place] PT Charges PT Therap. Exercise 15 min : 3 PT Ther Activities Ea 15 Min : 1 Gait Training Each 15 Min : 1 Nany Walker Heliotherapist Lead - 07/13/2018 12:22 EDT documented in this encounter Plan of Treatment Not on file documented as of this encounter Visit Diagnoses Not on filedocumented in this encounter
--- OUTSIDE RECORDS SUMMARY | 2024-12-15 16:11 | XMS_ITS | Encounter Summary ---
Author Organization [employer] ([place], [place], [place], [place]) Address [address] [place] [address] Care Team Providers Care Hide Tanner Name Role Phone Unavailable Primary Care Provider Unavailabl e Encounter Details Date Type Department Care Team (Late st Contact Info) Description 07/13/2018 Transcribed Document [facility] Radiology 1 [place] [address] Provider, Layla Acosta MD Social [...] 9. Hyperlipidemia. DISCHARGE INSTRUCTIONS: Diet: According to [place] [employer]. 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 3. Diabetes mellitus. Resume home medication. 4. [...] Trans: 07/14/2018 01:19:52 CC1: Clara Gudino M.D. Electronically signed by Julius Kang Conversion Professional Services Consultant Cerner at 09/22/2022 11:00 AM CDT documented in this encounter Plan of Treatment Not on file documented as of this encounter Visit Diagnoses Not on filedocumented in this encounter
--- OUTSIDE RECORDS SUMMARY | 2024-12-15 16:11 | XMS_ITS | Encounter Summary ---
Author Organization [email or web address] ([place], [place], [place]) Address [address] [place] [address] Care Team Providers Care Big Data Hadoop Developer Name Role Phone Unavailable Primary Care Provider Unavailabl e Encounter Details Date Type Department Care Team (Late st Contact Info) Description 07/12/2018 Transcribed Document [facility] Radiology 1 [place] [address] Provider, Layla Acosta MD Social [...] version of the form. Electronically signed by Layla Kang Conversion Licensed Physical Therapist Assistant Cerner at 09/22/2022 11:00 AM CDT documented in this encounter Plan of Treatment Not on file documented as of this encounter Visit Diagnoses Not on filedocumented in this encounter
--- OUTSIDE RECORDS SUMMARY | 2024-12-15 16:11 | XMS_ITS | Encounter Summary ---
Author Organization [employer] ([place], [place], [place], [place]) Address [address] [place] [address] Care Team Providers Care Data Analytics Specialist Name Role Phone Unavailable Primary Care Provider Unavailabl e Encounter Details Date Type Department Care Team (Late st Contact Info) Description 07/12/2018 Transcribed Document [facility] 1 [place] [address] Provider, Layla Acosta MD Social [...] NENITA PEREZ PT - 07/12/2018 13:35 EDT Group Home Goals Other PT LTG Grid Goal #1 [...]
--- OUTSIDE RECORDS SUMMARY | 2024-12-15 16:11 | XMS_ITS | Encounter Summary ---
Author Organization [employer] ([place], [place], [place], [place]) Address [address] [place] [address] Care Team Providers Care Respiratory Services Manager Name Role Phone Unavailable Primary Care Provider Unavailabl e Encounter Details Date Type Department Care Team (Late st Contact Info) Description 07/13/2018 Transcribed Document [facility] Radiology 1 [place] [address] Provider, Layla Acosta MD Social [...] [facility] Karla Rojo MD - 07/13/2018 1:00 AM [...]
--- OUTSIDE RECORDS SUMMARY | 2024-12-15 16:11 | XMS_ITS | Encounter Summary ---
Author Organization [employer] ([place], [place], [place], [place]) Address [address] [place] [address] Care Team Providers Care Hone Operator Name Role Phone Unavailable Primary Care Provider Unavailabl e Encounter Details Date Type Department Care Team (Late st Contact Info) Description 07/13/2018 Transcribed Document [facility] Radiology 1 [place] [address] Provider, Layla Acosta MD [...] TIA (transient ischemic attack) / SNOMED CT 327208045 / Confirmed HTN (hypertension) / SNOMED CT 8469732619 / Confirmed Hyperlipidemia / SNOMED CT 08062722 / Confirmed Fibromyalgia / SNOMED CT 879937984 / Confirmed Circulation problem / SNOMED CT 2734895833 / Confirmed Diabetes / SNOMED CT 039446195 / Confirmed Depression / SNOMED CT 88595883 / Confirmed CAD (coronary artery disease) / SNOMED CT 18827415 / Confirmed At risk for sleep apnea / IMO [id number] / Confirmed Arthritis / SNOMED CT 8648844 / Confirmed Anxiety / SNOMED CT 11986423 / Confirmed, Active Problems (11) Anxiety Arthritis [...]
--- OUTSIDE RECORDS SUMMARY | 2024-12-15 16:11 | XMS_ITS | Encounter Summary ---
Author Organization [employer] ([place], [place], [place], [place]) Address [address] [place] [address] Care Team Providers Care Bell Hole Digger Name Role Phone Unavailable Primary Care Provider Unavailabl e Encounter Details Date Type Department Care Team (Late st Contact Info) Description 07/13/2018 Transcribed Document [facility] Rad[facility] 1 [place] [address] Provider, Layla Acosta MD Social [...]
--- OUTSIDE RECORDS SUMMARY | 2024-12-15 16:11 | XMS_ITS | Encounter Summary ---
Author Organization [employer] ([place], [place], [place], [place]) Address [address] [place] [address] Care Team Providers Care General Ledger Bookkeeper Name Role Phone Unavailable Primary Care Provider Unavailabl e Encounter Details Date Type Department Care Team (Late st Contact Info) Description 07/11/2018 Transcribed Document [facility] Radiology 1 [place] [address] ProviderLayla MD Social History Tobacco [...] Miscellaneous Notes * Jenniferner Conversion Note - [facility] Karla [...]
--- OUTSIDE RECORDS SUMMARY | 2024-12-15 16:11 | XMS_ITS | Encounter Summary ---
Author Organization [employer] ([place], [place], [place], [place]) Address [address] [place] [address] Care Team Providers Care Acid Strength Inspector Name Role Phone Unavailable Primary Care Provider Unavailabl e Encounter Details Date Type Department Care Team (Late st Contact Info) Description 07/30/2019 Transcribed Document [facility] 1 [place] [address] ProviderLayla MD Social History Tobacco [...] Miscellaneous Notes * Cerner Conversion Note - [facility] Karla Rojo MD - 07/30/2019 11:42 AM EDT Orthopedic Nurse Navigator Entered On: 07/30/2019 10:42 EDT Performed On: 07/30/2019 10:42 EDT by Marion Farias Nurse desktop support manager Nurse Navigator Assessment Joint Navigator Assessment Note : 1 year post op surveys. Marion Farias Nurse RN - 07/30/2019 10:42 EDT documented in this encounter Plan of Treatment Not on file documented as of this encounter Visit Diagnoses Not on filedocumented in this encounter
--- OUTSIDE RECORDS SUMMARY | 2024-12-15 16:11 | XMS_ITS | Encounter Summary ---
Author Organization [employer] ([place], [place], [place], [place]) Address [address] [place] [address] Care Team Providers Care Clinical Esthetician Name Role Phone Unavailable Primary Care Provider Unavailabl e Encounter Details Date Type Department Care Team (Late st Contact Info) Description 07/12/2018 Transcribed Document [facility] Radiology 1 [place] [address] Provider, Layla Acosta MD Social [...] right TKA. High risk and complex pt #[id number] Electronically signed by Layla Kang Conversion Correctional Food Service Supervisor Cerner at 09/22/2022 11:00 AM CDT documented in this encounter Plan of Treatment Not on file documented as of this encounter Visit Diagnoses Not on filedocumented in this encounter
--- OUTSIDE RECORDS SUMMARY | 2024-12-15 16:11 | XMS_ITS | Encounter Summary ---
Author Organization [employer] ([place], [place], [place], [place]) Address [address] [place] [address] Care Team Providers Care Candy Cooker Helper Name Role Phone Unavailable Primary Care Provider Unavailabl e Encounter Details Date Type Department Care Team (Late st Contact Info) Description 07/11/2018 Transcribed Document [facility] Radiology 1 [place] [address] Provider, Layla Acosta MD Social [...] Obtained From : Patient Primary Language : Ghanaian Preferred Communication Mode : Verbal Communication Barrier [...] Scale Risk Level : 25-45 Medium Risk Matinicus Fall Interventions : Adequate lighting, Bed in [...] of Topic : Good Teaching Method : Barber Instructor Learning Style Preferences Family : Printed materials, [...] Source : Stated Height Entry Format : [place]y Height, Feet : 5 ft(Converted to: 152 cm, 60 Inch) Height, Inches : 0 Inch(Converted to: 0 ft 0 Inch, 0.00 cm) Clinical Height : 152.4 cm Weight Source : Standing scale Weight Entry Format : Max[place]y Clinical Dosing Weight : 73.09 kg Weight, Pounds : 160.8 lb Body Surface Area (BSA) : 1.7 m2 Body Mass Index : 31.5 kg/m2 (HI) Kinta Body Weight : 45 kg Aline Fabian [...]
--- OUTSIDE RECORDS SUMMARY | 2024-12-15 16:11 | XMS_ITS | Encounter Summary ---
Author Organization [employer] ([place], [place], [place], [place]) Address [address] [place] [address] Care Team Providers Care Transportation Analyst Name Role Phone Unavailable Primary Care Provider Unavailabl e Encounter Details Date Type Department Care Team (Late st Contact Info) Description 07/13/2018 Transcribed Document [facility] Radiology 1 [place] [address] Provider, Layla Acosta MD Social [...] On: 07/13/2018 12:49 EDT by Nany Walker Pressroom Foreman Lead Discharge Summary Discharge Summary Provider Notified : Nursing, Referring provider Reason for Discharge : Discharged from hospital, All goals met Discharged to, Therapy : Home, with home health Nany Walker Pressroom Foreman Lead - 07/13/2018 12:49 EDT Discharge Summary [...] DIANNA WELSH, PT - 07/13/2018 16:09 EDT Dowel Pin Worker Goals Other PT LTG Grid Goal #1 [...]
--- OUTSIDE RECORDS SUMMARY | 2024-12-15 16:11 | XMS_ITS | Encounter Summary ---
Author Organization [employer] ([place], [place], [place], [place]) Address [address] [place] [address] Care Team Providers Care Beach Lifeguard Name Role Phone Unavailable Primary Care Provider Unavailabl e Encounter Details Date Type Department Care Team (Late st Contact Info) Description 07/12/2018 Transcribed Document [facility] Radiology 1 [place] [address] Provider, Layla Acosta MD Social [...] Notes * Cerner Conversion Note - [facility] Karla Rojo MD - 07/12/2018 4:16 PM EDT [facility] [address] [facility] [place] [address] Patient Copy Patient Information: Name: FLOR LUX Current Date: 07/12/2018 15:16:51 : 1945 Patient Address: [place] [address] Patient Attending Physician: FREDERIC ADAMS MD-ORT Primary Care Provider: RODO SANFORD [facility] Primary Care Provider Discharge Diagnosis: Weight on Admission: 175 lb, 0 oz Comment: Follow-up Instructions: With: Address: When: DEYSI MEJIA [address] [place] [id number] Business (1) 11:15 AM Comments: Appointment has [...] Barley. Bulgur wheat. Millet. Bran muffins. Popcorn. [place] wafer crackers. ?? Vegetables Sweet potatoes. Spinach. Kale. Artichokes. Cabbage. Broccoli. Green peas. Carrots. Squash. ?? Fruits Berries. Pears. Apples. Oranges. Avocados. Prunes and raisins. Dried figs. ?? Meats and Other Protein Sources [place], kidney, hoff, and soy beans. Split peas. [...] alphonso has 11 g of protein. ?? Cherry Plain seeds ??? 1 oz has 5.5 g [...] floor. ?? Place frequently used items in cphv-um-qxprw places ?? Keep electrical cables out of [...] ? Using the bathroom. ? Using household manager of internal audit or toxic chemicals. ? Touching or taking [...] may report side effects to FDA at 5-155-DXM-6050. What other drugs will affect gabapentin? Taking gabapentin with other drugs that make you sleepy can worsen this effect. Ask your doctor before taking a sleeping pill, narcotic medication, muscle relaxer, or medicine for anxiety, depression, or seizures. Other drugs may interact with gabapentin, including prescription and burc-rrw-dzobkjr medicines, vitamins, and herbal products. Tell your [...] to ensure that the information provided by [employer]. ('[employer]') is accurate, up-to-date, and complete, but no guarantee is made to that effect. Drug information contained herein may be time sensitive. [employer] information has been compiled for use by healthcare practitioners and consumers in the [place] and therefore [employer] does not warrant that uses outside of the [place] are appropriate, unless specifically indicated otherwise. Physician Referral Network (PRN)s drug information does not endorse drugs, diagnose patients or recommend therapy. Physician Referral Network (PRN)s drug information is an informational resource designed [...] effective or appropriate for any given patient. [employer] does not assume any responsibility for any aspect of healthcare administered with the aid of information [employer] provides. The information contained herein is not intended to cover all possible uses, directions, precautions, warnings, drug interactions, allergic reactions, or adverse effects. If you have questions about the drugs you are taking, check with your doctor, nurse or pharmacist. Copyright 8315-2001 [employer]. Version: 14.01. Revision Date: 02/08/2017. oxycodone (ox [...] The extended-release form of oxycodone is for wfxfgn-rts-yoric treatment of pain and should not be [...] against the law. Stop taking all other jzizin-vle-fzojm narcotic pain medicines when you start taking [...] may report side effects to FDA at 8-162-BKA-1048. What other drugs will affect oxycodone? You [...] may affect oxycodone. This includes prescription and xdeu-cra-iymayry medicines, vitamins, and herbal products. Not all [...] to ensure that the information provided by [employer] ('[employer]') is accurate, up-to-date, and complete, but no guarantee is made to that effect. Drug information contained herein may be time sensitive. [employer] information has been compiled for use by healthcare practitioners and consumers in the [place] and therefore [employer] does not warrant that uses outside of the [place] are appropriate, unless specifically indicated otherwise. Physician Referral Network (PRN)s drug information does not endorse drugs, diagnose patients or recommend therapy. Physician Referral Network (PRN)s drug information is an informational resource designed [...] effective or appropriate for any given patient. [employer] does not assume any responsibility for any aspect of healthcare administered with the aid of information [employer] provides. The information contained herein is not intended to cover all possible uses, directions, precautions, warnings, drug interactions, allergic reactions, or adverse effects. If you have questions about the drugs you are taking, check with your doctor, nurse or pharmacist. Copyright 6256-2591 [employer]. Version: 13.02. Revision Date: 03/29/2018. tramadol (TRAM [...] extended-release form of this medicine is for oksgbn-mpt-iovnc treatment of pain. This form of tramadol [...] against the law. Stop taking all other qlorjj-zmq-uwyxp narcotic pain medications when you start taking [...] may report side effects to FDA at 1-736-ZHI-3360. What other drugs will affect tramadol? You [...] may affect tramadol. This includes prescription and nder-gfl-hxjnmnx medicines, vitamins, and herbal products. Not all [...] to ensure that the information provided by [employer]. ('[employer]') is accurate, up-to-date, and complete, but no guarantee is made to that effect. Drug information contained herein may be time sensitive. [employer] information has been compiled for use by healthcare practitioners and consumers in the [place] and therefore [employer] does not warrant that uses outside of the [place] are appropriate, unless specifically indicated otherwise. Physician Referral Network (PRN)s drug information does not endorse drugs, diagnose patients or recommend therapy. Physician Referral Network (PRN)s drug information is an informational resource designed [...] effective or appropriate for any given patient. [facility] does not assume any responsibility for any aspect of healthcare administered with the aid of information [facility] provides. The information contained herein is not intended to cover all possible uses, directions, precautions, warnings, drug interactions, allergic reactions, or adverse effects. If you have questions about the drugs you are taking, check with your doctor, nurse or pharmacist. Copyright 6089-5561 [facility] [employer]. Version: 18.02. Revision Date: 03/29/2018. CIGARETTE SMOKING: The facts are clear, cigarette smoking will shorten your life. Smoking can cause many illnesses along the way. As a healthcare provider, we recommend that you stop smoking. Assistance with quitting is available by contacting 0-892-NKFU-NOW. This is a free resource providing counseling, [...] sure to sign up for the My [employer] patient portal, which gives you 22/11 access to your medical information ??? including these discharge instructions ??? using your computer, smartphone, or tablet. Just go to [employer] to get started. Questions? Call . [facility] would like to thank you for allowing us to assist you with your healthcare needs. MACI Benjamin RITA MOR, (or bank representative) have received the above patient education materials/instructions and have verbalized understanding: Patient Signature _ Date/Time Patient Grocery Clerk Signature (if needed) Date/Time Clinician/Hospital Grocery Clerk Signature (if needed) Date/Time documented in this encounter Plan of Treatment Not on file documented as of this encounter Visit Diagnoses Not on filedocumented in this encounter
--- OUTSIDE RECORDS SUMMARY | 2024-12-15 16:11 | XMS_ITS | Encounter Summary ---
Author Organization [employer] ([place], [place], [place], [place]) Address [address] [place] [address] Care Team Providers Care Hotel Or Motel Cleaning Supervisor Name Role Phone Unavailable Primary Care Provider Unavailabl e Encounter Details Date Type Department Care Team (Late st Contact Info) Description 07/11/2018 Transcribed Document [facility] Radiology [address] [place] [address] Provider, Layla Acosta MD Social [...] Miscellaneous Notes * Cerner Conversion Note - [facility] Karla ProviderMD - 07/11/2018 3:47 PM EDT JN Main OR PreOp Summary Primary Physician: FREDERIC ADAMS MD-ORT Finalized Date/Time: 07/11/18 15:05:11 Pt. Name: MACI FLOROrly Royal/Sex: 1945 Female Med Rec #: [id number] Physician: FREDERIC ADAMS MD-ORT Financial #: [id number] Pt. Type: O Room/Bed: [facility]/ Admit/Disch: 07/11/18 04:54:00 - Institution: [facility] PreOp Case Times Entry 1 In Preop 07/11/18 10:40:00 Ready for Holding n/a Room Patient Ready for 07/11/18 13:24:00 Surgery Patient Out of Preop 07/11/18 14:09:00 Patient Out of n/a Holding Room Last Modified By: IFRAH CLAIRE 07/11/18 15:05:10 SJE PreOp Case Times Audit 07/11/18 15:05:10 Car Designer: [email or web address] Modifier: [email or web address] <+> 1 Patient Out of Preop 07/11/18 13:45:10 Car Designer: [id number] Modifier: [email or web address] <+> 1 Patient Ready for Surgery Finalized By: IFRAH CLAIRE Document Signatures Signed By: IFRAH CLAIRE 07/11/18 15:05 Electronically signed by Jorge Luis [facility] Conversion Nurse Discharge Cerner at 09/22/2022 11:00 AM CDT documented in this encounter Plan of Treatment Not on file documented as of this encounter Visit Diagnoses Not on filedocumented in this encounter
--- OUTSIDE RECORDS SUMMARY | 2024-12-15 16:11 | XMS_ITS | Encounter Summary ---
Author Organization [employer] ([place], [place], [place], [place]) Address [address] [place] [address] Care Team Providers Care Motivational Speaker Name Role Phone Unavailable Primary Care Provider Unavailabl e Encounter Details Date Type Department Care Team (Late st Contact Info) Description 07/18/[address] [facility] 1 [place] [address] Provider, Layla Acosta MD Social [...] [ ] Surgical procedure/ Evaluation [ ] CDS/Digital Content Producer Signature: Edgar Horne Phone #: _[phone]__ Date/Time: _07/18/2018 11:53 AM_ This is a permanent part of the Medical Record documented in this encounter Plan of Treatment Not on file documented as of this encounter Visit Diagnoses Not on filedocumented in this encounter
--- OUTSIDE RECORDS SUMMARY | 2024-12-15 16:11 | XMS_ITS | Encounter Summary ---
Author Organization [employer] ([place], [place], [place], [place]) Address [address] [place] [address] Care Team Providers Care Print And Pattern Designer Name Role Phone Unavailable Primary Care Provider Unavailabl e Encounter Details Date Type Department Care Team (Late st Contact Info) Description 07/10/2018 Transcribed Document [facility] Radiology [address] [place] [address] Provider, Layla Acosta MD Social [...]
--- OUTSIDE RECORDS SUMMARY | 2024-12-15 16:11 | XMS_ITS | Encounter Summary ---
Author Organization [employer] ([place], [place], [place], [place]) Address [address] [place] [address] Care Team Providers Care Manager Terminal Name Role Phone Unavailable Primary Care Provider Unavailabl e Encounter Details Date Type Department Care Team (Late st Contact Info) Description 07/11/2018 Transcribed Document [facility] Radiology [address] [place] [address] ProviderLayla MD Social History Tobacco [...] Notes * Cerner Conversion Note - [facility] Karla ProviderMD - 07/11/2018 11:11 PM [...]
--- OUTSIDE RECORDS SUMMARY | 2024-12-15 16:11 | XMS_ITS | Clinical Summary ---
Author Organization [facility] Address [address] [place] [address] Care Team Providers Care Lead Applier Name Role Phone Haroldo Key MD Primary [...] (12/17/2022): Added automatically from request for surgery [id number] Carotid stenosis, asymptomatic, right 12/17/2022 Overview (12/17/2022): Added automatically from request for surgery [id number] Hyperkalemia 02/05/2017 Type 2 diabetes mellitus wit h complication, without long-term current use of insulin 02/04/2017 Essential hypertension 02/04/2017 Tobacco abuse 02/04/2017 Left-sided carotid artery disease 01/11/2017 Overview (01/11/2017): Added automatically from request for surgery [id number] Peripheral vascular disease 01/02/2017 Resolved Problems Problem [...] VACCINE 01/30/2025 Medical Devices Implanted Type Area Pelt Dropper Device Identifier Shelf Expiration Date Model / Serial / Lot Intraoccular Lenses Implant Right Hip Orif Hardware Implant [facility] Ladonna 1x6cm - [id number] Implanted:Qty: 1 on 02/04/2017 by Maicol Burger MD at [facility] Implant Left: Carotid SYNOVIS [id number] / / [id number] Procedures Procedure Name Priority Date/Time Associated Diagnosis Comments HEMOGLOBIN A1C Routine 02/03/2017 1:39 PM EDT Stenosis of left carotid artery from Last 3 Months or Most Recently Relevant to Health Maintenance Results * (ABNORMAL) Hemoglobin A1c (02/03/2017 1:39 PM EDT) Hemoglobin A1C 6.60(H) 4.80 - 5.60 % 02/03/2017 2:28 PM EDT [facility] Blood Venipuncture / Unknown 02/03/2017 1:39 PM EDT 02/03/2017 1:51 PM EDT Narrative [facility] - 02/03/2017 2:28 PM EDT [place] Diabetes Association recommends maintenance of Hemoglobin A1C at 7.0% or lower. Goals for Hemoglobin A1C reduction may need to be modified if hypoglycemia is a problem. us Haroldo AGUILAR LAB BLOOD ORDERABLES Final R esult [facility]
[address] [id number], from Last 3 Months or Most Recently Relevant to Health Maintenance Insurance MEDICARE A & B [facility] SUP Advance Directives Documents on File Type Date Recorded Patient Dredge Runner Expl anation LIVING WILL - SCAN 10/20/2021 5:59 AM FRANCHESCA NG WILL DIRECTIVE 02/04/17 LIVING WILL - SCAN 10/19/2021 8:51 AM FRANCHESCA NG WILL DIRECTIVE 02/04/2017 * Full Code (Latest Code Status on File) Date Activated Date Inactivated Comments 02/04/2017 9:45 AM 02/05/2017 7:28 PM Care Teams Lead Applier Relationship Specialty Start Date End Date Haroldo Key MD PCP - General Family Medicine 11/11/16
--- OUTSIDE RECORDS SUMMARY | 2024-12-15 16:11 | XMS_ITS | Encounter Summary ---
Author Organization [employer] ([place], [place], [place], [place]) Address [address] [place] [address] Care Team Providers Care Studio Manager Name Role Phone Unavailable Primary Care Provider Unavailabl e Encounter Details Date Type Department Care Team (Late st Contact Info) Description 06/27/2018 Transcribed Document [facility] [address] [place] [address] ProviderLayla MD Social History Tobacco [...] Miscellaneous Notes * Cerner Conversion Note - [facility] Karla Rojo MD - 06/27/2018 8:41 PM EST Orthopedic Nurse Navigator Entered On: 07/10/2018 6:52 EDT Performed On: 06/27/2018 19:41 EST by Carlyn Temple pre [employer] special education teacher Nurse Navigator Assessment Attended Joint Academy : Yes Joint AcademyType : Online Joint Academy Date : 06/27/2018 EST Carlyn Temple, RN - 07/10/2018 6:52 EDT documented in this encounter Plan of Treatment Not on file documented as of this encounter Visit Diagnoses Not on filedocumented in this encounter
--- OUTSIDE RECORDS SUMMARY | 2024-12-15 16:11 | XMS_ITS | Encounter Summary ---
Author Organization [employer] ([place], [place], [place]) Address [address] [place] [address] Care Team Providers Care Director Telecommunications Name Role Phone Unavailable Primary Care Provider Unavailabl e Encounter Details Date Type Department Care Team (Late st Contact Info) Description 07/12/2018 Transcribed Document [facility] [address] [place] [address] Provider, Layla Acosta MD [...]
--- OUTSIDE RECORDS SUMMARY | 2024-12-15 16:11 | XMS_ITS | Encounter Summary ---
Author Organization [employer] ([place], [place], [place], [place]) Address [address] [place] [address] Care Team Providers Care Transportation Engineer Name Role Phone Unavailable Primary Care Provider Unavailabl e Encounter Details Date Type Department Care Team (Late st Contact Info) Description 07/11/2018 Transcribed Document [facility] [address] [place] [address] Provider, Layla Acosta MD Social [...] Miscellaneous Notes * Cerner Conversion Note - [facility] Karla ProviderMD - 07/11/2018 3:47 PM EDT [facility] OR PACU Summary Primary Physician: FREDERIC ADAMS MD-ORT Finalized Date/Time: 07/11/18 18:08:25 Pt. Name: MACI FLOROrly Royal/Sex: 1945 Female Med Rec #: [id number] Physician: FREDERIC ADAMS MD-ORT Financial #: [id number] Pt. Type: O Room/Bed: 508/1 Admit/Disch: 07/11/18 04:54:00 - Institution: [facility] OR PACU Case Times Entry 1 In PACU I 07/11/18 16:03:00 Ready for PACU 07/11/18 17:03:00 Discharge Discharge from PACU 07/11/18 17:43:00 I Last Modified By: Mayra Cunningham Rn Patient Care Bedside 07/11/18 18:08:09 [facility] OR PACU Case Times Audit 07/11/18 18:08:09 Mosaicist: BARRERA Modifier: BARRERA <+> 1 Ready for [...] 07/11/18 18:08 Electronically signed by Jorge Luis [facility] Conversion Lead Project Engineer Cerner at 09/22/2022 11:00 AM CDT documented in this encounter Plan of Treatment Not on file documented as of this encounter Visit Diagnoses Not on filedocumented in this encounter
--- OUTSIDE RECORDS SUMMARY | 2024-12-15 16:11 | XMS_ITS | Encounter Summary ---
Author Organization [employer] ([place], [place], [place], [place]) Address [address] [place] [address] Care Team Providers Care Sap Technical Architect Name Role Phone Unavailable Primary Care Provider Unavailabl e Encounter Details Date Type Department Care Team (Late st Contact Info) Description 07/13/2018 Transcribed Document [facility] [address] [place] [address] Provider, Layla Acosta MD Social [...] Notes * Cerner Conversion Note - [facility] Karla Rojo MD - 07/13/2018 12:48 PM EDT [facility] [address] , [place] [address] Patient Copy Patient Information: Name: FLOR LUX Current Date: 07/13/2018 11:48:22 : 1945 Patient Address: [place] [address] Patient Attending Physician: FREDERIC ADAMS MD-ORT Primary Care Provider: RODO SANFORD MD-[facility] Primary Care Provider Discharge Diagnosis: Weakness Weight on Admission: 175 lb, 0 oz Comment: Follow-up Instructions: With: Address: When: Follow up with specialty services Within 2 to 3 days Comments: Nephrology With: Address: When: Follow up with primary care provider Within 2 to 3 days With: Address: When: DEYSI MEJIA [address] [place] [address] [employer] (1) 11:15 AM Comments: Appointment has been made Discharge Instructions: Medical Equipment for Home Use: BLUEGRASS BRACING FOR CPM RENTAL Home Health Services: [facility] [phone] Immunizations Documented During Stay: No Immunizations Found [...] Barley. Bulgur wheat. Millet. Bran muffins. Popcorn. Mckenzie wafer crackers. ?? Vegetables Sweet potatoes. Spinach. Kale. Artichokes. Cabbage. Broccoli. Green peas. Carrots. Squash. ?? Fruits Berries. Pears. Apples. Oranges. Avocados. Prunes and raisins. Dried figs. ?? Meats and Other Protein Sources Ringling, kidney, hoff, and soy beans. Split peas. [...] alphonso has 11 g of protein. ?? [place] seeds ??? 1 oz has 5.5 g [...] floor. ?? Place frequently used items in mlcr-go-stcru places ?? Keep electrical cables out of [...] ? Using the bathroom. ? Using household archeology professor or toxic chemicals. ? Touching or taking [...] are a day sleeper or work a evening or night nurse supervisor. Some people have thoughts about suicide while [...] may report side effects to FDA at 5-793-QWQ-9392. What other drugs will affect gabapentin? Taking gabapentin with other drugs that make you sleepy can worsen this effect. Ask your doctor before taking a sleeping pill, narcotic medication, muscle relaxer, or medicine for anxiety, depression, or seizures. Other drugs may interact with gabapentin, including prescription and vwms-wuy-czevagp medicines, vitamins, and herbal products. Tell your [...] to ensure that the information provided by [employer]. ('[employer]') is accurate, up-to-date, and complete, but no guarantee is made to that effect. Drug information contained herein may be time sensitive. [employer] information has been compiled for use by healthcare practitioners and consumers in the [place] and therefore [employer] does not warrant that uses outside of the [place] are appropriate, unless specifically indicated otherwise. [employer] drug information does not endorse drugs, diagnose patients or recommend therapy. [employer] drug information is an informational resource designed [...] effective or appropriate for any given patient. [employer] does not assume any responsibility for any aspect of healthcare administered with the aid of information [employer] provides. The information contained herein is not intended to cover all possible uses, directions, precautions, warnings, drug interactions, allergic reactions, or adverse effects. If you have questions about the drugs you are taking, check with your doctor, nurse or pharmacist. Copyright 9625-9243 [employer]. Version: 14.01. Revision Date: 02/08/2017. oxycodone (ox [...] The extended-release form of oxycodone is for mlmnbw-zik-pfrhg treatment of pain and should not be [...] against the law. Stop taking all other knenhg-kgf-iciqs narcotic pain medicines when you start taking [...] may report side effects to FDA at 1-563-BOE-5632. What other drugs will affect oxycodone? You [...] may affect oxycodone. This includes prescription and apzn-nfg-sfxweca medicines, vitamins, and herbal products. Not all [...] to ensure that the information provided by [employer]. ('[employer]') is accurate, up-to-date, and complete, but no guarantee is made to that effect. Drug information contained herein may be time sensitive. [employer] information has been compiled for use by healthcare practitioners and consumers in the [place] and therefore [employer] does not warrant that uses outside of the [place] are appropriate, unless specifically indicated otherwise. [employer]'s drug information does not endorse drugs, diagnose patients or recommend therapy. [employer] drug information is an informational resource designed [...] effective or appropriate for any given patient. [employer] does not assume any responsibility for any aspect of healthcare administered with the aid of information [facility] provides. The information contained herein is not intended to cover all possible uses, directions, precautions, warnings, drug interactions, allergic reactions, or adverse effects. If you have questions about the drugs you are taking, check with your doctor, nurse or pharmacist. Copyright 9276-4975 [employer]. Version: 13.02. Revision Date: 03/29/2018. tramadol (TRAM [...] extended-release form of this medicine is for xfrrkm-yle-vjcln treatment of pain. This form of tramadol [...] against the law. Stop taking all other gcuqqp-tye-emihc narcotic pain medications when you start taking [...] may report side effects to FDA at 9-157-HYL-5345. What other drugs will affect tramadol? You [...] may affect tramadol. This includes prescription and mevm-bql-afztgoc medicines, vitamins, and herbal products. Not all [...] to ensure that the information provided by [employer]. ('[employer]') is accurate, up-to-date, and complete, but no guarantee is made to that effect. Drug information contained herein may be time sensitive. [employer] information has been compiled for use by healthcare practitioners and consumers in the [place] and therefore B[employer] does not warrant that uses outside of the [place] are appropriate, unless specifically indicated otherwise. A[employer]'s drug information does not endorse drugs, diagnose patients or recommend therapy. [employer]'s drug information is an informational resource designed [...] appropriate for any given patient. [facility] does not assume any responsibility for any aspect of healthcare administered with the aid of information [facility] provides. The information contained herein is not intended to cover all possible uses, directions, precautions, warnings, drug interactions, allergic reactions, or adverse effects. If you have questions about the drugs you are taking, check with your doctor, nurse or pharmacist. Copyright 2413-1681 [facility]. Version: 18.02. Revision Date: 03/29/2018. CIGARETTE SMOKING: The facts are clear, cigarette smoking will shorten your life. Smoking can cause many illnesses along the way. As a healthcare provider, we recommend that you stop smoking. Assistance with quitting is available by contacting 0-682-LTEB-NOW. This is a free resource providing counseling, [...] Be sure to sign up for the [facility] patient portal, which gives you 22/11 access to your medical information ??? including these discharge instructions ??? using your computer, smartphone, or tablet. Just go to [employer] to get started. Questions? Call . [facility] would like to thank you for allowing us to assist you with your healthcare needs. MACI Benjamin RITA MOR, (or textile designs sales representative) have received the above patient education materials/instructions and have verbalized understanding: Patient Signature _ Date/Time Patient Drug Purchaser Signature (if needed) Date/Time Clinician/Hospital Drug Purchaser Signature (if needed) Date/Time documented in this encounter Plan of Treatment Not on file documented as of this encounter Visit Diagnoses Not on filedocumented in this encounter
--- OUTSIDE RECORDS SUMMARY | 2024-12-15 16:11 | XMS_ITS | Encounter Summary ---
Author Organization [employer] ([place], [place], [place], [place]) Address [address] [place] [address] Care Team Providers Care Caretaker Resort Name Role Phone Unavailable Primary Care Provider Unavailabl e Encounter Details Date Type Department Care Team (Late st Contact Info) Description 07/11/2018 Transcribed Document [facility] [address] [place] [address] Provider, Layla Acosta MD Social [...] Source : Stated Height Entry Format : Atkins Height, Feet : 5 ft(Converted to: 152 cm, 60 Inch) Height, Inches : 0 Inch(Converted to: 0 ft 0 Inch, 0.00 cm) Clinical Height : 152.4 cm Weight Source : Standing scale Weight Entry Format : Atkins Clinical Dosing Weight : 73.09 kg Weight, Pounds : 160.8 lb Body Surface Area (BSA) : 1.7 m2 Body Mass Index : 31.5 kg/m2 (HI) [place] Body Weight : 45 kg RUBY ARIZA [...] Obtained From : Patient Primary Language : [place] Preferred Communication Mode : Verbal Communication Barrier [...] Level : 46 or > High Risk [place] Fall Interventions : Adequate lighting, Bed in [...] the text rendition version of the form. [place] Coma Kirstin Best Motor Response : Obey commands [place] Best Verbal Response : Oriented Kirstin Eye Opening Response : Spontaneous [place] Coma Score : 15 RUBY ARIZA RN - 07/11/2018 13:16 EDT documented in this encounter Plan of Treatment Not on file documented as of this encounter Visit Diagnoses Not on filedocumented in this encounter
--- OUTSIDE RECORDS SUMMARY | 2024-12-15 16:11 | XMS_ITS | Encounter Summary ---
Author Organization [employer] ([place], [place], [place], [place]) Address [address] [place] [address] Care Team Providers Care Whiskey Proof Reader Name Role Phone Unavailable Primary Care Provider Unavailabl e Encounter Details Date Type Department Care Team (Late st Contact Info) Description 07/13/2018 Transcribed Document [facility] Radiology [address] [place] [address] Provider, Layla Acosta MD Social [...] Miscellaneous Notes * Cerner Conversion Note - [facility] Karla Rojo MD - 07/13/2018 11:47 [...]
--- OUTSIDE RECORDS SUMMARY | 2024-12-15 16:11 | XMS_ITS | Encounter Summary ---
Author Organization [employer] ([place], [place], [place]) Address [address] [place] [address] Care Team Providers Care Soft Drink Powder Mixer Name Role Phone Unavailable Primary Care Provider Unavailabl e Encounter Details Date Type Department Care Team (Late st Contact Info) Description 07/11/2018 Transcribed Document [facility] Radiology [address] [place] [address] Provider, Layla Acosta MD Social [...] 20:31 EDT Electronically signed by Jorge Luis [facility] Conversion Label Drier Cerner at 09/22/2022 11:00 AM CDT documented in this encounter Plan of Treatment Not on file documented as of this encounter Visit Diagnoses Not on filedocumented in this encounter
--- OUTSIDE RECORDS SUMMARY | 2024-12-15 16:11 | XMS_ITS | Encounter Summary ---
Author Organization [employer] ([place], [place], [place], [place]) Address [address] [place] [address] Care Team Providers Care Route Clerk Name Role Phone Unavailable Primary Care Provider Unavailabl e Encounter Details Date Type Department Care Team (Late st Contact Info) Description 07/11/2018 Transcribed Document [facility] Radiology [address] [place] [address] ProviderLayla MD Social History Tobacco [...] Miscellaneous Notes * Cerner Conversion Note - [facility] Karla Rojo MD - 07/11/2018 3:59 PM [...]
--- OUTSIDE RECORDS SUMMARY | 2024-12-15 16:11 | XMS_ITS | Encounter Summary ---
Author Organization [employer] ([place], [place], [place], [place]) Address [address] [place] [address] Care Team Providers Care Inspector Fibrous Wallboard Name Role Phone Unavailable Primary Care Provider Unavailabl e Encounter Details Date Type Department Care Team (Late st Contact Info) Description 07/11/2018 Transcribed Document [facility] [address] [place] [address] Provider, Layla Acosta MD Social [...] 07/11/2018 11:08 EDT by Goldie Dexter Patient Meat Counter Clerk Height and Weight, Clinical Dosing Height Source : Stated Height Entry Format : [place] Height, Feet : 5 ft(Converted to: 152 cm, 60 Inch) Height, Inches : 0 Inch(Converted to: 0 ft 0 Inch, 0.00 cm) Clinical Height : 152.4 cm Weight Source : Standing scale Weight Entry Format : [place] Clinical Dosing Weight : 73.09 kg Weight, Pounds : 160.8 lb Body Surface Area (BSA) : 1.7 m2 Body Mass Index : 31.5 kg/m2 (HI) [place] Body Weight : 45 kg Goldie Dexter Patient Meat Counter Clerk - 07/11/2018 11:08 EDT documented in this encounter Plan of Treatment Not on file documented as of this encounter Visit Diagnoses Not on filedocumented in this encounter
--- OUTSIDE RECORDS SUMMARY | 2024-12-15 16:11 | XMS_ITS | Encounter Summary ---
Author Organization [employer] ([place], [place], [place], [place]) Address [address] [place] [address] Care Team Providers Care Attendant Campground Name Role Phone Unavailable Primary Care Provider Unavailabl e Encounter Details Date Type Department Care Team (Late st Contact Info) Description 07/13/2018 Transcribed Document [facility] Radiology [address] [place] [address] Provider, Layla Acosta MD Social [...] Miscellaneous Notes * Cerner Conversion Note - [facility] Karla Rojo MD - 07/13/2018 11:48 AM EDT [facility] [address] , [place] [address] Patient Copy Patient Information: Name: FLOR LUX Current Date: 07/13/2018 10:48:09 : 1945 Patient Address: [place] [address] Patient Attending Physician: FREDERIC ADAMS MD-ORT Primary Care Provider: RODO SANFORD MD-[facility] Primary Care Provider Discharge Diagnosis: Weakness Weight on Admission: 175 lb, 0 oz Comment: Follow-up Instructions: With: Address: When: Follow up with specialty services Within 1 week Comments: nephrology With: Address: When: Follow up with primary care provider Within 2 to 3 days With: Address: When: Follow up with primary care provider Within 2 to 3 days With: Address: When: DEYSI MEJIA [address] [place] [address] [facility] (1) 11:15 AM Comments: Appointment has been made Discharge Instructions: Medical Equipment for Home Use: BLUEGRASS BRACING FOR CPM RENTAL Home Health Services: [facility] [phone] Immunizations Documented During Stay: No Immunizations Found [...] Barley. Bulgur wheat. Millet. Bran muffins. Popcorn. Mulhall wafer crackers. ?? Vegetables Sweet potatoes. Spinach. Kale. Artichokes. Cabbage. Broccoli. Green peas. Carrots. Squash. ?? Fruits Berries. Pears. Apples. Oranges. Avocados. Prunes and raisins. Dried figs. ?? Meats and Other Protein Sources Beclabito, kidney, hoff, and soy beans. Split peas. [...] alphonso has 11 g of protein. ?? Travis seeds ??? 1 oz has 5.5 g [...] floor. ?? Place frequently used items in plew-zl-clygi places ?? Keep electrical cables out of [...] ? Using the bathroom. ? Using household varnishing unit tool setter or toxic chemicals. ? Touching or taking [...] a day sleeper or work a shift supervisor. Some people have thoughts about suicide [...] may report side effects to FDA at 6-706-PZA-5171. What other drugs will affect gabapentin? Taking gabapentin with other drugs that make you sleepy can worsen this effect. Ask your doctor before taking a sleeping pill, narcotic medication, muscle relaxer, or medicine for anxiety, depression, or seizures. Other drugs may interact with gabapentin, including prescription and brbj-fky-dviaquf medicines, vitamins, and herbal products. Tell your [...] to ensure that the information provided by [employer]. ('[employer]') is accurate, up-to-date, and complete, but no guarantee is made to that effect. Drug information contained herein may be time sensitive. [employer] information has been compiled for use by healthcare practitioners and consumers in the [place] and therefore [employer] does not warrant that uses outside of the [place] are appropriate, unless specifically indicated otherwise. [employer] drug information does not endorse drugs, diagnose patients or recommend therapy. [employer] drug information is an informational resource designed [...] effective or appropriate for any given patient. [employer] does not assume any responsibility for any aspect of healthcare administered with the aid of information [facility] provides. The information contained herein is not intended to cover all possible uses, directions, precautions, warnings, drug interactions, allergic reactions, or adverse effects. If you have questions about the drugs you are taking, check with your doctor, nurse or pharmacist. Copyright 5243-9768 [employer]. Version: 14.01. Revision Date: 02/08/2017. oxycodone (ox [...] The extended-release form of oxycodone is for quayym-jvq-xlbzp treatment of pain and should not be [...] against the law. Stop taking all other ywkkxo-knb-dssti narcotic pain medicines when you start taking [...] may report side effects to FDA at 0-014-VUN-9986. What other drugs will affect oxycodone? You [...] may affect oxycodone. This includes prescription and obrf-nqf-anafsfl medicines, vitamins, and herbal products. Not all [...] to ensure that the information provided by [employer]. ('[employer]') is accurate, up-to-date, and complete, but no guarantee is made to that effect. Drug information contained herein may be time sensitive. [employer] information has been compiled for use by healthcare practitioners and consumers in the [place] and therefore [employer] does not warrant that uses outside of the [place] are appropriate, unless specifically indicated otherwise. [employer] drug information does not endorse drugs, diagnose patients or recommend therapy. [employer] drug information is an informational resource designed [...] appropriate for any given patient. [facility] does not assume any responsibility for any aspect of healthcare administered with the aid of information [facility] provides. The information contained herein is not intended to cover all possible uses, directions, precautions, warnings, drug interactions, allergic reactions, or adverse effects. If you have questions about the drugs you are taking, check with your doctor, nurse or pharmacist. Copyright 7594-9795 [facility] [employer]. Version: 13.02. Revision Date: 03/29/2018. tramadol (TRAM [...] extended-release form of this medicine is for ajvwva-lqp-medem treatment of pain. This form of tramadol [...] against the law. Stop taking all other zhlfhr-hrl-oaymr narcotic pain medications when you start taking [...] may report side effects to FDA at 0-995-DNI-0919. What other drugs will affect tramadol? You [...] may affect tramadol. This includes prescription and ngik-nch-gmmutta medicines, vitamins, and herbal products. Not all [...] to ensure that the information provided by [employer]. ('[employer]') is accurate, up-to-date, and complete, but no guarantee is made to that effect. Drug information contained herein may be time sensitive. [employer] information has been compiled for use by healthcare practitioners and consumers in the [place] and therefore [employer] does not warrant that uses outside of the [place] are appropriate, unless specifically indicated otherwise. [employer]'s drug information does not endorse drugs, diagnose patients or recommend therapy. [employer] drug information is an informational resource designed [...] effective or appropriate for any given patient. [facility] does not assume any responsibility for any aspect of healthcare administered with the aid of information [facility] provides. The information contained herein is not intended to cover all possible uses, directions, precautions, warnings, drug interactions, allergic reactions, or adverse effects. If you have questions about the drugs you are taking, check with your doctor, nurse or pharmacist. Copyright 0418-9629 [employer]. Version: 18.02. Revision Date: 03/29/2018. CIGARETTE SMOKING: The facts are clear, cigarette smoking will shorten your life. Smoking can cause many illnesses along the way. As a healthcare provider, we recommend that you stop smoking. Assistance with quitting is available by contacting 9-512-BNAV-NOW. This is a free resource providing counseling, [...] Be sure to sign up for the [employer] patient portal, which gives you 22/11 access to your medical information ??? including these discharge instructions ??? using your computer, smartphone, or tablet. Just go to [employer] to get started. Questions? Call . [facility] would like to thank you for allowing us to assist you with your healthcare needs. IMACI RITA MOR, (or district representative) have received the above patient education materials/instructions and have verbalized understanding: Patient Signature _ Date/Time Patient Client Renewal Specialist Signature (if needed) Date/Time Clinician/Hospital Client Renewal Specialist Signature (if needed) Date/Time documented in this encounter Plan of Treatment Not on file documented as of this encounter Visit Diagnoses Not on filedocumented in this encounter
--- OUTSIDE RECORDS SUMMARY | 2024-12-15 16:11 | XMS_ITS | Encounter Summary ---
Author Organization [employer] ([place], [place], [place], [place]) Address [address] [place] [address] Care Team Providers Care Education Department Registrar Name Role Phone Unavailable Primary Care Provider Unavailabl e Encounter Details Date Type Department Care Team (Late st Contact Info) Description 07/12/2018 Transcribed Document [facility] Radiology [address] [place] [address] Provider, Layla Acosta MD Social [...]
--- OUTSIDE RECORDS SUMMARY | 2024-12-15 16:11 | XMS_ITS | Encounter Summary ---
Author Organization [employer] ([place], [place], [place], [place]) Address [address] [place] [address] Care Team Providers Care Generator Mechanic Name Role Phone Unavailable Primary Care Provider Unavailabl e Encounter Details Date Type Department Care Team (Late st Contact Info) Description 07/12/2018 Transcribed Document [facility] Radiology [address] [place] [address] Provider, Layla Acosta MD Social [...] Miscellaneous Notes * Cerner Conversion Note - [facility] Karla Rojo MD - 07/12/2018 10:39 AM [...]
--- OUTSIDE RECORDS SUMMARY | 2024-12-15 16:11 | XMS_ITS | Encounter Summary ---
Author Organization [employer] ([place], [place], [place], [place]) Address [address] [place] [address] Care Team Providers Care Retention Specialist Name Role Phone Unavailable Primary Care Provider Unavailabl e Encounter Details Date Type Department Care Team (Late st Contact Info) Description 07/11/2018 Transcribed Document [facility] Radiology [address] [place] [address] Provider, Layla Acosta MD Social [...]
[2024-12-15 16:18] LABS: Microscopic, Urine URINE MICROSCOPIC (MICROSCOPIC)
[2024-12-15 16:25] LABS: Bilirubin,Urine Negative (Negative); Color,Urine YELLOW (Yellow); Glucose,Urine (UA) Negative (Negative); Ketones,Urine Negative (Negative); Leukocyte Esterase,Urine 2+ (Negative); PH,Urine 6.0 (5.0-8.5); Protein,Urine Negative (Negative); Specific Gravity, Urine 1.015 (1.005-1.030); Urobilinogen,Urine 0.2 EU/dl (0.2)
[2024-12-15 17:06] LABS: Bacteria,Urine 4+ /lpf; WBC,Urine 50-100 #/hpf (0-3)
== END 2024-12-15 23:59 | disposition home or self-care (01) ==
LOC: LAB.DROPOF 16:09
PROVIDERS: PCP Internal Medicine Adolescent Medicine; Visit Provider Internal Medicine Adolescent Medicine
DX: I69.351 Hemiplegia and hemiparesis following cerebral infarction affecting right dominant side (principal); N18.9 Chronic kidney disease, unspecified; E11.9 Type 2 diabetes mellitus without complications
CPT/HCPCS: 81001; 87086

== ENCOUNTER 2025-01-30 16:19 | Outpatient (CLI) | payer MEDICARE, OTHER, SELFPAY ==
--- OUTSIDE RECORDS SUMMARY | 2025-01-30 16:23 | XMS_ITS | Clinical Summary ---
Author Organization [facility] Address [address] [place] [address] Care Team Providers Care Inspector Ball Points Name Role Phone Haroldo Key MD Primary Care Provider + Allergies Active Allergy Reactions Criticality Noted Date Comments Adhesive Tape Rash Low 02/03/2017 Rash after prolonged skin contact Latex 11/25/2016 Rash Penicillins 03/08/2017 Mild Reaction Sulfa Antibiotics Rash Low 11/25/2016 Tetanus Toxoid-Containing Vaccines Other (See Comments) 11/25/2016 Local swelling and [...] (12/17/2022): Added automatically from request for surgery [id number] Carotid stenosis, asymptomatic, right 12/17/2022 Overview (12/17/2022): Added automatically from request for surgery [id number] Hyperkalemia 02/05/2017 Type 2 diabetes mellitus wit h complication, without long-term current use of insulin 02/04/2017 Essential hypertension 02/04/2017 Tobacco abuse 02/04/2017 Left-sided carotid artery disease 01/11/2017 Overview (01/11/2017): Added automatically from request for surgery [id number] Peripheral vascular disease 01/02/2017 Resolved Problems Problem [...] - Adults (1 - 1-dose 75+ series) 2 INFLUENZA VACCINE 11/30/2024 COVID-19 Vaccine ( season) 2024 Medical Devices Implanted Type Area Form Stripper Device Identifier Shelf Expiration Date Model / Serial / Lot Intraoccular Lenses Implant Right Hip Orif Hardware Implant [facility] [place] 1x6cm - [id number] Implanted:Qty: 1 on 02/04/2017 by Maicol Burger MD at [facility] Implant Left: Carotid SY[employer]IS [id number] / / [id number] Procedures Procedure Name Priority Date/Time Associated Diagnosis Comments HEMOGLOBIN A1C Routine 02/03/2017 1:39 PM EDT Stenosis of left carotid artery from Last 3 Months or Most Recently Relevant to Health Maintenance Results * (ABNORMAL) Hemoglobin A1c (02/03/2017 1:39 PM EDT) Hemoglobin A1C 6.60(H) 4.80 - 5.60 % 02/03/2017 2:28 PM EDT [facility] Blood Venipuncture / Unknown 02/03/2017 1:39 PM EDT 02/03/2017 1:51 PM EDT Narrative [facility] - 02/03/2017 2:28 PM EDT The [place] Diabetes Association recommends maintenance of Hemoglobin A1C at 7.0% or lower. Goals for Hemoglobin A1C reduction may need to be modified if hypoglycemia is a problem. Haroldo AGUILAR LAB BLOOD ORDERABLES Final R esult [facility]
[address] [place] [address], from Last 3 Months or Most Recently Relevant to Health Maintenance Insurance MEDICARE A & B [employer] Advance Directives Documents on File Type Date Recorded Patient Agricultural Lender Expl anation LIVING WILL - SCAN 10/20/2021 5:59 AM FRANCHESCA NG WILL DIRECTIVE 02/04/17 LIVING WILL - SCAN 10/19/2021 8:51 AM FRANCHESCA NG WILL DIRECTIVE 02/04/2017 * Full Code (Latest Code Status on File) Date Activated Date Inactivated Comments 02/04/2017 9:45 AM 02/05/2017 7:28 PM Care Teams Inspector Ball Points Relationship Specialty Start Date End Date Haroldo Key MD PCP - General Family Medicine 11/11/16
--- OUTSIDE RECORDS SUMMARY | 2025-01-30 16:23 | XMS_ITS | Clinical Summary ---
Author Organization [facility] Address [address] [place] [address] Care Team Providers Care Chain Link Fence Installer Name Role Phone Haroldo Key MD Primary Care Provider [phone] Allergies Active Allergy Reactions Criticality Noted Date [...] tablet before bedtime. 180 tablet 07/27/2024 Active Resolved Problems Problem Noted Date Diagnosed Date Resolved Date Acute encephalopathy 07/23/2024 025 Immunizations Immunization Administration Dates Next Due Tdap [...] week 07/25/2024 How often do you attend [facility] or [facility]? Never 07/25/2024 Do you belong to any clubs o r organizations such as presybeterian groups, unions, fraternal or athletic groups, or [...] more drinks on one occasion? Never 07/25/2024 [facility] of Occupat ional Health - Occupational Stress [...] any time in the past 12 m [facility], were you homeless or living in a senior living (including now)? No 07/25/2024 Utilities Answer Date Recorded In the past 12 months has th e electric, gas, oil, or water company threatened to [...] Visit [place] [facility] [address] [place] [address] VickeyLucila mcdaniel, STREETCAR STARTER [address] [place] [address] Health Maintenance Due Date Last Done Comments [facility]-Bone Density Scan 1945 [facility]-Depression Screening 1945 [facility]-Medicare Annual Wellness (AWV) 1945 [facility]-/Child/Adol SDOH Screenings 1945 Diabetes: Dental Exam 1956 [facility]-Pneumococcal Vaccine: 50 + Years (1 of 2 - PCV) 1965 [facility]-Zoster Vaccines (1 of 2) 1996 [facility]-RSV Vaccine: 60+ Years o r (1 - 1-dose 75+ series) 2021 [id number] Vaccine (1 - 20 24-25 season) 2024 [...] 5.7(H) <5.7 % 07/23/2024 8:[address] [facility] Blood Venous blood specimen / Unknown Venipuncture / Unknown 07/23/2024 4:28 AM EDT 07/23/2024 4:[address] [facility] - 07/23/2024 8:45 AM EDT HA1C Interpretive Data: Diagnosis of Diabetes: Diabetic > or = 6.5% Pre-diabetic 5.7 to 6.4% Non-diabetic < or = 5.6% Glycemic Targets for Type I and Type II Diabetics: Non- Adults <7.0% Adults <6.0% Children and Adolescents <7.5% Source: [place] Diabetes Association. Standards of medical care in diabetes,2017. Diabetes Care.2017:40 (suppl 1):S1-S135. HbA1c assay performed by an ion-exchange chromatography method that is certified traceable to the DCCT. us Timoteo Zuluaga MD LAB BLOOD ORDERABLES Final Re sult [facility] [address] [place] [address] * Hepatitis C Antibody - ED (07/23/2024 4:22 AM EDT) [facility] Hepatitis C Antibody Negative Negative 07/23/2024 5:[address] [facility] Blood Venous blood specimen / Unknown Venipuncture / Unknown 07/23/2024 4:22 AM EDT 07/23/2024 4:32 AM EDT us Timoteo Zuluaga MD LAB BLOOD ORDERABLES Final Re sult Performing Organization Address City/[facility] Co de Phone Number [facility] [address] [place] [address] from Last 3 Months or Most Recently Relevant to Health Maintenance Insurance [facility] [place] [address] Advance Directives Documents on File Type Date Recorded Patient Finish Filer Expl anation Advance Directives and Livin g Will 07/28/2024 12:52 PM * DNR/DNI (Latest Code Status on File) Date Activated Date Inactivated Comments 07/23/2024 8:59 AM 07/27/2024 2:32 PM Question Answer Comments DNR determined on/before admission date? Yes Care Teams Chain Link Fence Installer Relationship Specialty Start Date End Date Haroldo Key MD [address] [place] [address] PCP - General 09/12/20
[2025-01-30 17:00] LABS: Microscopic, Urine URINE MICROSCOPIC (MICROSCOPIC)
[2025-01-30 17:16] LABS: Bilirubin,Urine Negative (Negative); Color,Urine YELLOW (Yellow); Glucose,Urine (UA) Negative (Negative); Ketones,Urine Negative (Negative); Leukocyte Esterase,Urine Negative (Negative); PH,Urine 6.0 (5.0-8.5); Protein,Urine TRACE (Negative); Specific Gravity, Urine 1.015 (1.005-1.030); Urobilinogen,Urine 0.2 EU/dl (0.2)
[2025-01-30 18:31] LABS: Bacteria,Urine 4+ /lpf; RBC,Urine Occasional #/hpf (0-3); Squamous Epithelial Cell,Urine Occasional #/hpf (0-5); WBC,Urine 50-100 #/hpf (0-3)
== END 2025-01-30 23:59 | disposition home or self-care (01) ==
LOC: LAB.DROPOF 16:21
PROVIDERS: Internal Medicine Adolescent Medicine; PCP Nurse Practitioner Family; Visit Provider Nurse Practitioner Family
DX: R41.82 Altered mental status, unspecified (principal)
CPT/HCPCS: 81001; 87086; 87088; 87186

== ENCOUNTER 2025-04-22 14:20 | Inpatient (IN) | payer MEDICARE, OTHER, SELFPAY ==
--- OUTSIDE RECORDS SUMMARY | 2025-02-27 12:30 | XMS_ITS | Encounter Summary ---
Author Organization [facility] Address [address] [place] [address] Care Team Providers Care Associate Veterinarian Name Role Phone Haroldo Key MD Primary Care Provider [phone] Reason for Visit * Consultation (Routine) - Closed Specialty Diagnoses / Procedures Referred By Contac t Referred To Contact Neurology Diagnoses Seizure (CMS/HCC) Tuan Smalls, PROFESSOR OF ARCHAEOLOGY [address] [facility] [address] [place] [address] Phone: tel: fax: [facility] [address], [address] [place] [address] Phone: tel: fax: Referral ID Status Reason Start Date Expiration Date V isits Requested Visits Authorized [id number] Closed Specialty Services Required 07/27/2024 01/26/2026 1 1 Encounter Details Date Type Department Care Team (Late st Contact Info) Description 02/27/2025 1:30 PM EDT Office Visit [facility] [address], [address] [place] [address] Lucila Johnson, PROFESSOR OF ARCHAEOLOGY [address] [facility] [address] [place] [address] Witnessed seizure-like activity (CMS/HCC) (Primary Dx) Social History Tobacco Use Types Packs/Day Years Used Date Smoking Tobacco: Former Cigarettes Smokeless Tobacco: Never Alcohol Use Standard Drinks/Week Comments Not Currently 0 (1 standard drink = 0.6 oz pur e alcohol) Humiliation, Afraid, Rape, and Kick questionnair e [...] How often do you attend chur or jainism services? Never 07/25/2024 Do you belong to any clubs o r organizations such as latter day groups, unions, fraternal or athletic groups, or [...] more drinks on one occasion? Never 07/25/2024 [facility] - Occupational Stress [...] any time in the past 12 m [facility], were you homeless or living in a longterm (including now)? No 07/25/2024 Utilities Answer Date Recorded In the past 12 months has th e [employer] (acquired by [employer] in 2014), gas, oil, or water [employer] threatened to shut off services in your home? No 07/25/2024 Comments Unknown Sex and Gender Information Value Date Recorded Sex Assigned at Not on file Legal Sex Female 8:43 PM EDT Gender Identity Not on file Sexual Orientation Not on file documented as of this encounter Last Filed Vital Signs Vital Sign Reading Time Taken Comments Blood Pressure 110/65 02/27/2025 1:50 PM EDT Pulse 78 02/27/2025 1:50 PM EDT Temperature - - Respiratory Rate - - Oxygen Saturation 99% 02/27/2025 1:50 PM EDT Inhaled Oxygen Concentration - - Weight - - Height - - Body Mass Index - - documented in this encounter Miscellaneous Notes * Progress Notes - Lucila Johnson APRN - 02/27/2025 1:30 PM EDT CHIEF COMPLAINT: The patinet presents to the office for/with seizures. History of Present Illness I had the pleasure of seeing . Flor Arroyo for establishing care in the Epilepsy clinic. The patient came accompanying by her daughter and son-in law who helps to provide some of the history. She was referred from hospital follow up. She lives in [facility] in [place] and she is wheelchair bound. Flor Arroyo is a 79 year old right handed female with PMH of left BIANCA stroke with right-sided defecits, HTN, type 2 diabetes, GERD, PAD, right and left total knee replacement, Endarterectomy, Iliac artery stent right leg,and hyperlipidemia who presented to [facility] in [place] from half-way with episode of unresponsiveness, reported cyanosis, shallow respirations. She presented as a transfer from outside hospital following this episode for further evaluation to [facility]. The history of seizures began on 07/23/2024. The patient has 1 seizure types. SEIZURE DESCRIPTION: Age of onset: 78 Aura/Warning - none Event description - Moving all extremities with right side a little weaker than left, unresponsiveness, reported cyanosis, shallow respirations, consistent with prior stroke in April 2024. Afterwards, felt tired. Loss of bowel or bladder control - unknown Tongue bite -unknown Post ictal: after loss of consciousness, confused, disoriented about couple hours. Amnestic to seizure. Duration - few minutes Frequency - 2-3 seizures on 07/23/2024 Last occurrence - 07/23/2024 Epilepsy Evaluation: Data Review: No EEG results found for the past 12 months - Imaging MR Head wo IV Contrast Result Date: 07/24/2024 1. No acute intracranial abnormalities. 2. Multifocal chronic ischemic changes. CRITICAL RESULT: No. COMMUNICATION: Per this written report. Drafted by Matt Yao MD on 07/24/2024 8:21 PM Finalreport signed by Matt Yao MD on 07/24/2024 8:[address] head results found for the past 12 months SOCIAL HISTORY: Lives in half-way in [place] Smoker: quit in Apr 2024 after stroke. ETOH: no Recreational drugs: no Energy drink: no Occupation: retired EPILEPSY RISK FACTORS: Head trauma: no COMMUNITY DEVELOPMENT DIRECTOR infections: no Family history of seizures: no Developmental delay: no Febrile seizures: no COMMUNITY DEVELOPMENT DIRECTOR tumors: no COMMUNITY DEVELOPMENT DIRECTOR vascular disease: yes April 2024 and early development: no Complications: No NICU admission with prolonged hospital stay: No Current Outpatient Medications Medication Instructions acetaminophen (TYLENOL) 500 mg, Every 6 hours PRN atorvastatin (LIPITOR) 40 mg, ZZ Daily RT busPIRone (Buspar) 5 MG tablet Cranberry 500 MG capsule Take by mouth. estradiol (ESTRACE) 2 g, Daily ferrous sulfate 325 mg, 2 times daily lactulose (Chronulac) 10 GM/15ML oral solution Lantus SoloStar 100 UNIT/ML injection pen levETIRAcetam (KEPPRA) 500 mg, Oral, 2 times daily loperamide (Imodium) 2 MG capsule magnesium oxide (Mag-Ox) 400 (240 Mg) MG tablet magnesium oxide (MAG-OX) 400 mg, Daily mirtazapine (Remeron) 7.5 MG tablet Multiple Vitamins-Minerals (CEROVITE SENIOR PO) Take by mouth. pantoprazole (PROTONIX) 40 mg, 2 times daily potassium chloride CR (Klor-Con M20) 20 MEQ ER tablet 2 tablets, Daily sertraline (ZOLOFT) 100 mg, ZZ Daily RT Skin Protectants, Misc. (eucerin) cream 1 Application, As needed Family Medical History: family history includes Diabetes in her mother; Heart attack in her mother; Hypertension in her father and mother; Lung disease in her father; Stroke in her mother. Vitals: Vitals: 02/27/25 1350 BP: 110/65 Pulse: 78 SpO2: 99% ATECRYU:1)@ Previous ASMs: None Current ASMs: Keppra 500 mg BID INTERVAL HISTORY: Patient reports the 2-3 seizures was on 07/23/2024, no seizure activity since started on Keppra. Patient continues to be on monotherapy Patient is reports compliance Patient has no side effects Patient is not driving Mood: takes Buspar, Zoloft Memory: decline Suicidal Ideation: no Sleep: not the best, takes Remeron The patient's ability to work since last visit: Review of Systems: A 14 point review of systems was negative except as noted in HPI. Physical Exam: GEN: appears well, not in acute distress, comfortable in wheelchair HEENT: atraumatic, no scleral icterus RESPIRATORY: normal expansion, breathing comfortably on room air PSYCH: pleasant and appropriate, normal affect. Neurologic: MENTAL STATUS: Awake, alert, oriented to person, interactive, able to follow simple commands, good mood with appropriate affect. Remote and recent memory: Memory impaired, speech and language is appropriate Vital signs were reviewed as charted. CRANIAL NERVES: II - PERRLA, VFs full to confrontation III, IV, - Normal. Extraocular movements are full in all directions with no nystagmus. V - Facial sensation intact bilaterally, no facial droop VII - Brow raise and smile symmetrical, Normal. Facial motility is symmetric. VIII - Auditory acuity intact IX, X - Palate elevation symmetric, uvula midline XI - Sternocleidomastoid and trapezius muscle have normal strength. XII - Tongue protrudes midline with normal movement MOTOR: No pronator drift, normal tone and bulk, strength 4/5 throughout, Left Upper and lower Extremities 3/5. no abnormal movements. COORDINATION: no ataxia with [id number] testing to left side, right sided weakness. GAIT: Deferred, wheelchair bound. There was no evidence of nystagmus, or dysmetria. Mild tremor noted in bilateral during outstretching hands. Judgment and insight: Normal. Discussion: Flor Arroyo is a 79 y.o. female who presented with seizure activity at her residential SNF and then again at [facility] on 07/23/2024. She has past medical history of left BIANCA stroke with right-sided deficits (Apr 2024), CKD 4, HTN, type 2 diabetes, GERD, PAD, and hyperlipidemia.She was a resident at SNF post stroke in April 2024 and was in her usual state of health until 07/22/24 when family noticed her shaking without loss of awareness. Glucose > 390 per family and SNF discussed going to hospital for treatment. Patient and family declined hospital visit at that time. Later that evening, she was noted to have GTC and sent to hospital by SNF staff. At OSH, she was having tonic-clonic movements upon arrival, treated with ativan and loaded with keppra. Workup at OSH lactate 10 and leukocytosis. Also noted UTI and she was given Vanc/Zosyn. She wasthen transferred to [facility] for further evaluation. With episodes she was unresponsiveness, reported cyanosis, shallow respirations. She presented as atransfer from outside hospital following this episode for further evaluation to [facility]. Due to those witnessed tonic-clonic seizure at OSH, received Keppra and Ativan there. Then transferred to [facility] and MRI Head w/o contrast revealed no acute intracranial abnormalities with multifocal chronic ischemic changes. She was started on Keppra 500 mg BID, and advised with follow up with neurology on 11/12/2024 which they could not make it and today is the first neurology consult. Daughter reports since she started on Keppra 500 mg twice a day she has not had any seizure or episodes concerning seizure. She takes Keppra remaining every night and denies any side effects with keppra rash, fatigue, sleepiness, dizziness, drowsiness, mood changes, irritability, depression, or SI. Of note, she has a history of recurrent UTI, which her daughter reports she had a UTI at that time when she had seizures and they took her to local hospital. I advised since likely provoked seizures were in the setting of multiple metabolic, hx of stroke and infectious derangements, I do not advise any EEG for now. Advised to continue on Keppra at 500 mg twice a day even though it is a low dose, since has controlled her seizure. Advised to talk to jazmin GARZON to get the referral to Urology for treatment of recurrent UTIs. Of note, she has transferred from the [facility] to [place] in [place]. Patient is doing well on her current regimen with little to no side effects. Will continue ASMs at the same dose. Side effects of medication have been discussed and patient knows to watch for changes in mood and depression. Counseled patient about the importance of taking ASMs as prescribed and not missing a dose. She should use a pill box and set alarm to help with this. She reported excellent adherence to ASMs. Discussed the importance of not driving at least 90 days after most recent seizure and medically cleared by his epileptologist. Patient verbalized understanding. Patient has been informed to call clinic if any concerns or questions prior to next visit. I advised that she can not drive should she have any breakthrough seizure till medically cleared. -Discussed with patient about the importance of getting enough sleep every night, avoiding caffeineand exercising daily. Patient was counseled on seizure precautions, these include: Continuous seizure precautions: 1) Avoid sleep deprivation or other known seizure risk factors including alcohol 2) Avoid open bodies of water or open flame 3) Avoid situations where loss of consciousness may predispose to injury 4) Avoid swimming alone 5) Take showers, not baths 6)Do not drive (including heavy machinery, ATVs, etc) for at least 90 days after the date of the last seizure/spell per [place] state law Patient has been informed to call clinic if any concerns or problems prior to next visit. Plan: -Continue on Keppra 500 mg twice a day. - Per her daughter [facility] provides refills for Keppra. - Follow up in 3 months. - Daughter reports the patient has had recent blood work at [facility], I advised to get the results. - She had routine blood work in June which the kidney function were elevated with slightly low platelet, and anemia. - Advised with a urology consult for recurrent UTIs. - Advised with OT and PT. -I counseled patient and family about the importance of excellent adherence of ASMs and the risk ofinjuries from seizures and (SUDEP) specially with GTC seizures. -Patient's daughter tells me that they are very careful and not missing any doses of ASMs. - For safety reason, patient does not drive and is monitored closely by house staff. Patient and family were agreeable with the above plan. Patient knows to call with any concerns prior to next appointment. A total of 70 minutes was spent visit/counseling/management plan/review of results/ placing orders,reviewing previous documentation, completion of today's documentation, imaging review, face to facevisit, POC discussion and counseling, and coordination of care, which 40 minutes was spent discussing the new medication, its side effect, tests, management, and seizure safety precaution. documented in this encounter Plan of Treatment Upcoming Encounters Date Type Department Care Team (Late st Contact Info) Description 06/04/2025 1:30 PM EST Office Visit [facility] [address] [place] [address] Lucila Johnson APRN [address] [place] [address] documented as of this encounter Visit Diagnoses Diagnosis Witnessed seizure-like activity (CMS/HCC)- Primary documented in this encounter Additional Health Concerns Assessment Noted Time A Body Mass Index follow-up plan has been documented for the patient 02/27/2025 3:31 PM EDT documented as of this encounter Care Teams Associate Veterinarian Relationship Specialty Start Date End Date Haroldo Key MD [address] [place] [address] PCP - General 09/12/20 documented as of this encounter
--- OUTSIDE RECORDS SUMMARY | 2025-02-27 12:30 | XMS_ITS | Encounter Summary ---
Author Organization [facility] Address [address] [address] Care Team Providers Care Client Technologies Analyst Name Role Phone Haroldo Key MD Primary Care Provider [phone] Reason for Visit * Consultation (Routine) - Closed Specialty Diagnoses / Procedures Referred By Contac t Referred To Contact Neurology Diagnoses Seizure (CMS/HCC) Tuan Smalls, PERSONNEL ADVISER [address] [facility] [address] [place] [address] Phone: tel: fax: [facility] [address] [place] [address] Phone: tel: fax: Referral ID Status Reason Start Date Expiration Date V isits Requested Visits Authorized [id number] Closed Specialty Services Required 07/27/2024 01/26/2026 1 1 Encounter Details Date Type Department Care Team (Late st Contact Info) Description 02/27/2025 1:30 PM EDT Office Visit [facility] [address] [place] [address] Lucila Johnson, PERSONNEL ADVISER [address] [facility] [address] [place] [address] Witnessed seizure-like activity (CMS/HCC) (Primary [...] How often do you attend chur or mandaen services? Never 07/25/2024 Do you belong to any clubs o r organizations such as restorationism groups, unions, fraternal or athletic groups, or [...] more drinks on one occasion? Never 07/25/2024 [facility] - Occupational [...] any time in the past 12 m [facility], were you homeless or living in a mcc (including now)? No 07/25/2024 Utilities Answer Date Recorded In the past 12 months has th e [employer], gas, oil, or water [employer] threatened to shut off services in your [...] from hospital follow up. She lives in [facility] in [place] and she is wheelchair bound. Flor Arroyo is a 79 year old right handed female with PMH of left BIANCA stroke with right-sided defecits, HTN, type 2 diabetes, GERD, PAD, right and left total knee replacement, Endarterectomy, Iliac artery stent right leg,and hyperlipidemia who presented to [facility] in [place] from care home with episode of unresponsiveness, reported cyanosis, shallow respirations. She presented as a transfer from outside hospital following this episode for further evaluation to [facility]. The history of seizures began on 07/23/2024. [...] past 12 months SOCIAL HISTORY: Lives in care home in [place] Smoker: quit in Apr 2024 after stroke. ETOH: no Recreational drugs: no Energy drink: no Occupation: retired EPILEPSY RISK FACTORS: Head trauma: no AIRCRAFT SYSTEMS TECHNICIAN infections: no Family history of seizures: no Developmental delay: no Febrile seizures: no AIRCRAFT SYSTEMS TECHNICIAN tumors: no AIRCRAFT SYSTEMS TECHNICIAN vascular disease: yes April 2024 and early [...] no abnormal movements. COORDINATION: no ataxia with [id number] testing to left side, right sided weakness. GAIT: Deferred, wheelchair bound. There was no evidence of nystagmus, or dysmetria. Mild tremor noted in bilateral during outstretching hands. Judgment and insight: Normal. Discussion: Flor Arroyo is a 79 y.o. female who presented with seizure activity at her residential SNF and then again at [facility] on 07/23/2024. She has past medical history [...] was given Vanc/Zosyn. She wasthen transferred to [facility] for further evaluation. With episodes she was unresponsiveness, reported cyanosis, shallow respirations. She presented as atransfer from outside hospital following this episode for further evaluation to [facility]. Due to those witnessed tonic-clonic seizure at OSH, received Keppra and Ativan there. Then transferred to [facility] and MRI Head w/o contrast revealed no [...] Of note, she has transferred from the [facility] to [facility] in [place]. Patient is doing well on her current [...] the date of the last seizure/spell per [place] state law Patient has been informed to call clinic if any concerns or problems prior to next visit. Plan: -Continue on Keppra 500 mg twice a day. - Per her daughter [facility] provides refills for Keppra. - Follow up in 3 months. - Daughter reports the patient has had recent blood work at [facility], I advised to get the results. - [...] Description 06/04/2025 1:30 PM EST Office Visit [facility] [address] [place] [address] Lucila Johnson APRN [address] [place] [address] documented as of this encounter Visit Diagnoses Diagnosis Witnessed seizure-like activity (CMS/HCC)- Primary documented in this encounter Additional Health Concerns Assessment Noted Time A Body Mass Index follow-up plan has been documented for the patient 02/27/2025 3:31 PM EDT documented as of this encounter Care Teams Client Technologies Analyst Relationship Specialty Start Date End Date Haroldo Key MD [address] [place] [address] PCP - General 09/12/20 documented as of this encounter
[2025-04-22] VITALS (13 sets, daily range): BP systolic 102–154; BP diastolic 40–78; PULSE 70–77; RESP 18–28; TEMP 36.6–37; O2SAT 92–99; BMI 22.8
--- NOTE | 2025-04-22 14:17 | ECG_ITS ---
APPROVED REPORT Exam: Resting ECG HR:80 bpm ECG Measurements Heart Rate 80 AXES ID 97 P -57 QRSd 81 QRS -15 QT 348 T 124 QTc 384 Conclusion ECTOPIC ATRIAL RHYTHM WITH SHORT ID INTERVAL WITH OCCASIONAL SUPRAVENTRICULAR PREMATURE COMPLEXES ST DEVIATION AND MODERATE T-WAVE ABNORMALITY, CONSIDER LATERAL ISCHEMIA [-0.1+ mV T-WAVE IN I/aVL/V5/V6] ABNORMAL ECG Electronically signed by : ABHIJIT LE, 04/25/2025 07:13:35
--- NOTE | 2025-04-22 14:21 | PC.NURSE ---
[employer] [address]
--- NOTE | 2025-04-22 14:22 | ED_ITS ---
<Statement entered by Sol Carrillo DO - 04/22/25 20:58> I was consulted by the CALIXTO, and we discussed the complexity of problems being addressed. I approve the treatment and management plan for this patient's care in the emergency department, thus performing a substantial portion of the medical decision making. Sol Carrillo DO Discharge Plan Disposition Patient Disposition: Admitted Condition: Fair Clinical Impressions Clinical Impression: Mass of lingula of lung, Pleural effusion Discharge ED Provider: Sol Carrillo General Adult HPI <LAUREN Howe - Last Filed: 04/22/25 19:00> General Chief complaint: Weakness Stated complaint: Weakness Time Seen by Provider: 04/22/25 14:21 Mode of Arrival: EMS Source of Information: Patient, Relative, EMS and Medical Record Limitations: Altered Mental Status History of Present Illness HPI narrative: 79-year-old female presents to the emergency department via EMS from [facility], for a 1 day history of generalized weakness, per EMS, patient's family was at the bedside provides some of the history as patient is pleasantly confused at baseline GCS of 14. Review of system deferred due to altered mental status. EMS and family at the bedside (son), provide most of the history. Patient sounds like that she was [facility] for [facility] , treated with p.o. antibiotics (Levaquin) for the last 5 days to a week. Patient's family numbers at the bedside are concerned that the patient is getting worse , that she is generally weak, more confused than her baseline, and is currently on 3 L nasal cannula placed by EMS, was on 2 L nasal cannula at the prison facility, for the last week, she is not on oxygen therapy at baseline. Family ember's endorse worsening productive cough, and concern for aspiration . Patient has other past medical history consistent with GERD, prior TIA/CVA, history of lung malignancy, with right-sided residual deficits, DIEGO, PAD, T2DM, CKD, CAD, hypertension, prior history of tobacco use, left-sided CEA, carotid artery disease, patient's on antiepileptic therapy with Keppra, for unknown seizure disorder. Initial triage vitals are unremarkable. Please note that above description of symptoms, in this electronic medical record under categorization of recalled from ER triage doctor by RN are reflective of an initial nursing assessment, however, is not reflective of my full history and physical exam that was personally taken and clarified. Consequentially, this preceding description of symptoms, which may include the patient's categorized chief complaint in the EMR, do not reflect my personal clinical impression, and the ultimate description of history of present illness and patient stated complaints should be deferred to this section of the note. Unless stated otherwise or congruent with this section of the note, additional signs, symptoms, or incongruence should be interpreted as inaccurate with my clinical impression. Onset (ago): unknown Related Data Home Medications ?Medication ?Instructions ?Recorded ?Confirmed lactulose 10 gram/15 mL oral 30 ml PO BIDP PRN Constip ation 06/07/24 10/23/24 solution magnesium 200 mg tablet 400 mg PO DAILY 06/07/24 ferrous sulfate 325 mg (65 mg 325 mg PO BID 06/08/24 0 10/23/24 iron) tablet multivitamin 1 tab PO DAILY 06/08/2410/01 acetaminophen 500 mg tablet 500 mg PO Q6H PRN 07/31/24 10/23/24 levetiracetam 500 mg tablet 500 mg PO BID 07/31/24 (Keppra) loperamide 2 mg capsule 2 mg PO Q6H PRN 07/31/24 cranberry 500 mg capsule 500 mg PO DAILY 09/19/24 estradiol 0.01% (0.1 mg/gram) 1 g vaginal WEEKLY 09/1910/23/24 vaginal cream (Estrace) buspirone 5 mg tablet 5 mg PO BID 10/23/24 5 insulin glargine 100 unit/mL (3 10 unit SQ HS 10/23/24 10/23/24 mL) subcutaneous pen (Lantus Solostar U-100 Insulin) insulin lispro 100 unit/mL 1 sliding scale dose SQ 10/23/24 subcutaneous pen (Humalog KwikPen USEASDIRECTD (U-100) Insulin) Previous Rx's ?Medication ?Instructions ?Recorded atorvastatin 40 mg tablet 40 mg PO HS 30 days #30 tabs 04/26/24 potassium chloride 20 mEq 40 meq (2 x 20 mEq) PO DAILY 30 04/26/24 tablet,extended days #60 tabs release(part/cryst) (Klor-Con M) sertraline 100 mg tablet 100 mg PO DAILY 30 days #30 tabs 04/26/24 pantoprazole 40 mg tablet,delayed 40 mg PO BID 30 days #60 tabs 06/08/24 release Allergies Allergy/AdvReac Type Severity Reaction Status Date / Time latex (LATEX) Allergy Intermediate I-ITCHING Verified 10/23/24 15:39 Penicillins (PENICILLINS) Allergy Mild I-RASH Verified 10/23/24 15:39 Sulfa (Sulfonamide Allergy Unknown I-RASH Verified 10/23/24 15:39 Antibiotics) (SULFA (SULFONAMIDE ANTIBIOTICS)) Tetanus Vaccines and Toxoid Allergy Unknown Verified 10/23/24 15:39 (TETANUS VACCINES & TOXOID) [facility] <LAUREN Howe - Last Filed: 04/22/25 19:00> [facility] Disclaimer: The information contained in this section may have been updated after the patient was seen, as this information can be updated by other users. Medical History (Updated 04/22/25 @ 18:47 by LAUREN Howe) Diabetes Seizure disorder Lung mass Duodenal erosion GI bleed History of vaginal delivery Hemiparesis affecting right side as late effect of cerebrovascular accident Anemia Knee osteoarthritis GERD (gastroesophageal reflux disease) Abnormal radiologic finding of lung field Anxiety Pain in right wrist Right radial fracture Osteoarthritis History of TIA (transient ischemic attack) Elbow fracture, right Fracture of wrist TIA (transient ischemic attack) Bilateral carotid bruits PAD (peripheral artery disease) HLD (hyperlipidemia) CAD (coronary artery disease) HTN (hypertension) Carotid artery disease Surgical History History of cataract surgery Hx of shoulder surgery History of total knee arthroplasty History of left-sided carotid endarterectomy Family History No significant family history Social History Smoking Status: Unknown if ever smoked second hand exposure: Yes alcohol intake: never counseling provided: none substance use type: denies use current occupational status: retired Travel in the last 8 weeks?: None household members: spouse housing: house current occupational exposures/hazards: No caffeine: Yes Have you lived/traveled outside [place] in past 30 days?: No Contact w/someone who lives/traveled outside [place] past 30 days?: No Exposure to someone with infectious disease in past 14 days?: No Do you have a fever (greater than 100.4 F or 38 C)?: No Have you tested positive for COVID-19?: No Exposed to someone with COVID-19 in past 14 days?: No Do you have a sore throat?: No Do you have a cough?: No Do you have any weakness?: No Do you have any diarrhea?: No Are you experiencing any unusual bleeding?: No Do you have any muscle aches/pain?: No Do you have any abdominal pain?: No Are you experiencing loss of taste or smell?: No Other Medical History Have you received the Flu Vaccine for this season: No Have you received the Pneumonia Vaccine: No (unknown) <LAUREN Howe - Last Filed: 04/22/25 19:00> ROS Obtained: Yes All systems reviewed & no additional complaints except as documented Physical Exam <LAUREN Howe - Last Filed: 04/22/25 19:00> General General appearance: alert and in no apparent distress Head Head exam: atraumatic and normocephalic Eye Eye exam: Present PERRL and EOMI ENT ENT exam: Present mucous membranes moist Neck Neck exam: Present normal inspection Chest Chest inspection: Present symmetric chest wall rise and other (Obvious soft tissue mass noted on the mediastinal chest wall); Absent normal inspection Respiratory Respiratory exam: Present other (Mild crackles notable throughout bilateral lung alston, and somewhat decreased breath sounds on the left); Absent normal lung sounds bilaterally, respiratory distress or wheezes Cardiovascular Cardiovascular exam: Present regular rate and normal rhythm Abdominal Exam Abdominal exam: Present soft; Absent tenderness, guarding, rebound or trauma Extremities Exam Extremities exam: Present normal inspection Neurological Exam Neurological exam: Present alert and other (GCS 14, pleasantly confused at baseline, only oriented to person, disorientated place and time, follows commands); Absent oriented X3 Psychiatric Psychiatric exam: Present normal affect Skin Skin exam: Present warm and dry Medical Decision Making <LAUREN Howe - Last Filed: 04/22/25 19:00> Medical Records Medical records reviewed: Yes I reviewed the patient's medical records. Screening: Per USPSTF and CDC recommendations, given the prevalence of disease in our region, it is our hospital?s policy to screen for HIV and viral Hepatitis for all patients aged 18 and over and those with ongoing risk factors. Dank Inquiry Pt receiving controlled substance: No Dank was queried for this patient: No Vital Signs: 04/22/25 13:47 04/22/25 15:00 04/22/25 15:30 Temperature 98.6 F Temperature Source Oral Pulse Rate 76 76 Pulse Rate [Left Radial] 77 Respiratory Rate 24 28 H 25 H Blood Pressure 130/56 L 129/67 Blood Pressure [Right Arm] 114/59 L Blood Pressure Mean [Right Arm] 77 Blood Pressure Source [Right Arm] Blood Pressure Position [Right Arm] 02 Sat by Pulse Oximetry 99 97 97 Oxygen Delivery Method Nasal Cannula Oxygen Flow Rate (LPM) 3 04/22/25 16:30 04/22/25 17:00 04/22/25 17:30 Temperature Temperature Source Pulse Rate 74 74 Pulse Rate [Left Radial] Respiratory Rate 23 18 26 H Blood Pressure 102/46 L 107/47 L 104/49 L Blood Pressure [Right Arm] Blood Pressure Mean [Right Arm] Blood Pressure Source [Right Arm] Blood Pressure Position [Right Arm] 02 Sat by Pulse Oximetry 99 99 Oxygen Delivery Method Oxygen Flow Rate (LPM) 04/22/25 18:00 04/22/25 19:59 Temperature 98 F Temperature Source Oral Pulse Rate 74 Pulse Rate [Left Radial] 71 Respiratory Rate 27 H 22 Blood Pressure 146/78 H Blood Pressure [Right Arm] 146/72 H Blood Pressure Mean [Right Arm] 96 Blood Pressure Source [Right Arm] Automatic Cuff Blood Pressure Position [Right Arm] Sitting 02 Sat by Pulse Oximetry 92 L 96 Oxygen Delivery Method Nasal Cannula Oxygen Flow Rate (LPM) 3 Lab Data Lab results reviewed: Yes I reviewed the patient's lab results. Lab Results 04/22/25 15:00: WBC 14.7 H, RBC 3.80 L, Hgb 9.4 L, Hct 30.8 L, MCV 81.1, MCH 24.7 L, MCHC 30.5 L, RDW 17.2, Plt Count 220, MPV 10.6 H, Neut % (Auto) 81.8 H, Lymph % (Auto) 11.6, [place] % (Auto) 4.2, Eos % (Auto) 1.7, Baso % (Auto) 0.2, N eut # (Auto) 12.0 H, Lymph # (Auto) 1.7, [place] # (Auto) 0.6, Eos # (Auto) 0.3, Baso # (Auto) 0.0, PT 12.7 H, INR 1.16 H, VBG pH 7.33, VBG pCO2 52.1 H, VBG pO2 41.2 H, VBG HCO3 26.9, VBG Total CO2 28.5 H, VBG O2 Saturation 73.1 H, VBG Base Excess 1.0, VBG Lactic Acid 1.6, Sodium 135 L, Potassium 4.8, Chloride 102, Carbon Dioxide 27, Anion Gap 10.8, BUN 31 H, Creatinine 2.10 H, Estimated Creat Clear 18, Estimated GFR 23 L, Est GFR ( Amer) 28 L, Glucose 116 H, Calcium 9.8, Magnesium 2.1, Total Bilirubin 0.6, AST 26, ALT 10 L, Alkaline Phosphatase 135 H, Troponin I < 0.01, NT-Pro-B Natriuret Pep 1460 H, Total Protein 6.8, Albumin 3.0 L, Globulin 3.8 H, Albumin/Globulin Ratio 0.8 L, Lipase 15 L 04/22/25 15:10: Chlamy pneumoniae PCR Not detected, Adenovirus (PCR) Not detected, B. pertussis DNA (PCR) Not detected, Coronavirus OC43 (PCR) Not detected, Coronavirus HKU1 (PCR) Not detected, Coronavirus 229E (PCR) Not detected, SARS-CoV-2 (PCR) Not detected, Coronavirus NL63 (PCR) Not detected, Human Metapneumovir PCR Not detected, Influenza A (H1) PCR Not detected, Influ A (H1N1/09) PCR Not detected, Influenza A (H3) PCR Not detected, Influenza Type A (PCR) Not detected, Influenza Type B (PCR) Not detected, M. pneumoniae (PCR) Not detected, Parainfluenza 1 (PCR) Not detected, Parainfluenza 2 (PCR) Not detected, Parainfluenza 3 (PCR) Not detected, Parainfluenza 4 (PCR) Not detected, RSV (PCR) Not detected, Entero/Rhino (PCR) Not detected 04/22/25 15:35: Lactate 0.9 04/22/25 18:30: Fluid Source Pleural, Fluid Volume 24, Fluid Appearance Hazy, Fluid RBC (Auto) 1, Fld Tot Nucleated Cell 252, Fld Polynuclear WBCs % 19, Fld Mononuclear WBCs % 81 04/22/25 19:21: Troponin I < 0.01 04/22/25 15:00 04/22/25 15:00 Orders (Tests/Meds): ED MEDICATIONS Generic Name Dose Route Start Last Admin Trade Name Freq PRN Reason Stop Dose Admin Acetaminophen 650 mg 04/22/25 17:40 Acetaminophen 325mg Tab PO 05/22/25 17:39 Q4HP PRN Fever or Mild Pain (1-3) Hydrocodone Bitart/Acetaminophen 1 tab 04/22/25 17:40 Hydrocodone/Apap 5/325 Mg Tablet PO 05/22/25 17:39 Q4HP PRN Mild to Moderate Pain (1-6) Buspirone HCl 5 mg 04/22/25 21:00 Buspirone Hcl 5 Mg Tablet PO 05/22/25 20:59 BID FARIHA Levofloxacin/Dextrose 750 mg in 150 mls @ 100 mls/hr 04/23/25 09:00 Levofloxacin 750mg/150ml Premix IV 05/03/25 08:59 DAILY FARIHA Insulin Human Lispro 0 unit 04/22/25 21:00 Humalog 100 Units/Ml 10ml Vial (Ssi) SUBCUT 05/22/25 20:59 ACHS FARIHA Protocol Levetiracetam 500 mg 04/22/25 21:00 Levetiracetam 500 Mg Tablet PO 05/22/25 20:59 BID FARIHA Nicotine 21 mg 04/22/25 17:40 Nicotine 21mg/24hr Patch TD 05/22/25 17:39 DAILYP PRN Nicotine Cravings Pantoprazole Sodium 40 mg 04/22/25 21:00 Pantoprazole 40mg Tablet PO 05/22/25 20:59 HS FARIHA Sertraline HCl 100 mg 04/23/25 09:00 Sertraline 100mg Tablet PO 05/23/25 08:59 DAILY FARIHA Sodium Chloride 3 ml 04/22/25 18:24 Sodium Chloride 3% 15ml Neb IH 05/22/25 18:23 ONCE PRN INDUCE SPUTUM COLLECTION Discontinued Medications Generic Name Dose Route Start Last Admin Trade Name Freq PRN Reason Stop Dose Admin Sodium Chloride 1,000 mls @ 999 mls/hr 04/22/25 15:31 04/22/25 18:59 Sod Chlor 0.9% 1000ml Bag IV 04/22/25 16:31 Infused .Q1H1M ONE Infusion Iopamidol 70 ml 04/22/25 15:56 04/22/25 15:57 Iopamidol-370 (76%);100ml Bottle IV 04/22/25 15:57 70 ml ONCE ONE Administration Sodium Chloride 50 ml 04/22/25 15:56 04/22/25 15:57 0.9 % Sodium Chloride 50 Ml Vial IV 04/22/25 15:57 50 ml ONCE ONE Administration Sodium Chloride 10 ml 04/22/25 15:56 04/22/25 15:57 Sodium Chloride 0.9% 10ml Syr (Rad Only) IV 05/22/25 15:55 10 ml NEEDED PRN Administration Maintain IV Site ORDERS Category Date Time Status CT angio chest PE protocol Stat Cat Scan 04/22/25 15:[address] head/brain wo con Stat Cat Scan 04/22/25 14:25 Completed Pulmonology Consult [Consult to Pulmonology] [CONS] Cons 04/22/25 17:40 Active Routine CXR --portable [XR chest portable] Stat Exams 04/22/25 19:08 Completed XR chest portable Stat Exams 04/22/25 14:25 Completed Body Fluid: Cell Count w/ Diff Stat Lab 04/22/25 18:30 Completed Complete Blood Count Auto Diff AMLAB Lab 04/23/25 06:00 Ordered Complete Blood Count Auto Diff Stat Lab 04/22/25 15:00 Completed Comprehensive Metabolic Panel AMLAB Lab 04/23/25 06:00 Ordered Comprehensive Metabolic Panel Stat Lab 04/22/25 15:00 Completed Cytology Routine Lab 04/22/25 17:27 Ordered Full Resp Panel w/COVID ([facility]) Routine Lab 04/22/25 15:10 Completed Hemoglobin A1C Routine Lab 04/22/25 18:15 Received Lactic Acid Stat Lab 04/22/25 15:35 Completed Lipase Stat Lab 04/22/25 15:00 Completed Magnesium AMLAB Lab 04/23/25 06:00 Ordered Magnesium Stat Lab 04/22/25 15:00 Completed NT Pro Brain Natriuretic Pep. Stat Lab 04/22/25 15:00 Completed PT INR [Prothrombin Time INR] Stat Lab 04/22/25 15:00 Completed Troponin I Q3H Lab 04/22/25 19:21 Completed Troponin I Q3H Lab 12/22/25 22:21 Ordered Troponin I Stat Lab 04/22/25 15:00 Completed Urinalysis and Microscopic Stat Lab 04/22/25 19:44 Completed Body Fluid Cult & Gram Stain Stat Micro 04/22/25 18:30 Received Sputum Culture & Gram Stain Stat Micro 04/22/25 18:24 Ordered Urine Culture Stat Micro 04/22/25 19:44 Received VBG [Venous Blood Gas] Stat RT 04/22/25 15:00 Completed Medical Decision Narrative: 79-year-old female presents to the emergency department via EMS for generalized weakness worsening oxygen requirement and altered mental status, concern for pneumonia, differential diagnose include but not limited to metabolic encephalopathy, uremic cephalopathy, encephalopathy, cardiac arrhythmia electrolyte disturbance, pneumonia, acute UTI, hypovolemia, acute bronchitis among others. I discussed this patient's case with the attending Dr. Bernstein, as well as the attending physician at shift change. Will obtain basic laboratory studies EKG, CT head without contrast, chest x-ray, lactic acid lipase level magnesium level proBNP, coags, troponin, full respiratory panel, UA and VBG. VBG is notable for normal pH, pCO2 is minimally elevated at 50.1, bicarb within normal limits. I reviewed the patient's chest x-ray,, radiology report is not available for my direct interrogation however patient has near collapse/post obstructive atelectasis of the left lung field will obtain CTA chest with without contrast PE protocol due to patient's history of malignancy. I reviewed the patient's chest x-ray along the corresponding radiologic report, complete opacification left hemithorax without shift of the mediastinal structure to the left, masslike opacity right upper lobe approximately 2 cm. CBC is notable for leukocytosis of 14.7, globin and hematocrit decreased 9.4, appears baseline, Will add on blood cultures. I reviewed the patient's CT head without contrast on the corresponding radiologic report, no radiographic evidence of acute intracranial pathology, will give 1 L IV NS, nursing staff notified me that the patient had no urine output with urine catheterization. Bret Bernstein MD: I was consulted by the CALIXTO, and we discussed the complexity of the problems being addressed. I approved the treatment and management plan for this patient's care in the emergency department, thus performing a substantive portion of the medical decision making. CT imaging pending at time of transition of care to the oncoming physician, Dr. Carrillo. Coags are notable for PT elevation that is minimal at 12.7, INR 1.16. CMP is notable for acute kidney injury with a BUN of 31 and creatinine of 2.1, which is elevated outside patient's baseline. ALP is minimally elevated at 135. No lactic acidosis. I discussed this patient's case in depth with the on-call fleet manager/dispatch at approximately 4:58 PM, he would like me to have discussion with the family about goals of care, he believes the patient does meet admission criteria, will need further pulmonology workup possible bronchial biopsy versus thoracentesis as inpatient versus in the ED. I will discuss this with family. I had a long discussion with the patient's power of environmental attorney (son), Devon Valle over the phone at approximately 5:08 PM, I discussed admission with IV antibiotics and further pulmonology consultation, discussed need for thoracentesis performed in the emergency department versus inpatient, also discussed potential comfort care/hospice consultation as inpatient depending on the patient and family's wishes. He would like to discuss this with his sister and call me back with further thoughts. I had a long discussion with the patient's son Devon Valle over the phone at approximately 5:20 PM, he spoke to his sister and all in agreement to proceed with diagnostic thoracentesis in the emergency department. 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 Once again patient voiced understanding and he elected to proceed on the patient's behalf. I along with the attending physician Dr. Carrillo had interactive discussion with the on-call fleet manager/dispatch over the phone at approximately 5:35 PM, we will proceed with thoracentesis diagnostic and therapeutic. I discussion with the hospital physician at approximately 5:40 PM, he is in agreement with the current admission plan/treatment plan. Discussed plan with hospitalist physician in person at the bedside at approximately 5:50 PM, he will place orders, and after thoracentesis patient will be admitted to the floor, will hold off on IV antibiotics at this time. Viral respiratory panel is negative Successful thoracentesis, patient tolerated the procedure well no apparent complications see attending physician procedure note for full details. Will send off pleural fluid cytology, cell count, glucose count, LD, protein count. Closed obtain occasion was performed with patient's son KEVIN over the phone at approximately 6:57 PM, discussing successful thoracentesis. Plan for admission. Once again patient's family is in agreement with current treatment plan/admission plan. <Bret Bernstein MD - Last Filed: 04/22/25 15:31> Vital Signs: 04/22/25 13:47 04/22/25 15:00 04/22/25 15:30 Temperature 98.6 F Temperature Source Oral Pulse Rate 76 76 Pulse Rate [Left Radial] 77 Respiratory Rate 24 28 H 25 H Blood Pressure 130/56 L 129/67 Blood Pressure [Right Arm] 114/59 L Blood Pressure Mean [Right Arm] 77 Blood Pressure Source [Right Arm] Blood Pressure Position [Right Arm] 02 Sat by Pulse Oximetry 99 97 97 Oxygen Delivery Method Nasal Cannula Oxygen Flow Rate (LPM) 3 04/22/25 16:30 04/22/25 17:00 04/22/25 17:30 Temperature Temperature Source Pulse Rate 74 74 Pulse Rate [Left Radial] Respiratory Rate 23 18 26 H Blood Pressure 102/46 L 107/47 L 104/49 L Blood Pressure [Right Arm] Blood Pressure Mean [Right Arm] Blood Pressure Source [Right Arm] Blood Pressure Position [Right Arm] 02 Sat by Pulse Oximetry 99 99 Oxygen Delivery Method Oxygen Flow Rate (LPM) 04/22/25 18:00 04/22/25 19:59 Temperature 98 F Temperature Source Oral Pulse Rate 74 Pulse Rate [Left Radial] 71 Respiratory Rate 27 H 22 Blood Pressure 146/78 H Blood Pressure [Right Arm] 146/72 H Blood Pressure Mean [Right Arm] 96 Blood Pressure Source [Right Arm] Automatic Cuff Blood Pressure Position [Right Arm] Sitting 02 Sat by Pulse Oximetry 92 L 96 Oxygen Delivery Method Nasal Cannula Oxygen Flow Rate (LPM) 3 Lab Data Lab Results 04/22/25 15:00: WBC 14.7 H, RBC 3.80 L, Hgb 9.4 L, Hct 30.8 L, MCV 81.1, MCH 24.7 L, MCHC 30.5 L, RDW 17.2, Plt Count 220, MPV 10.6 H, Neut % (Auto) 81.8 H, Lymph % (Auto) 11.6, [place] % (Auto) 4.2, Eos % (Auto) 1.7, Baso % (Auto) 0.2, N eut # (Auto) 12.0 H, Lymph # (Auto) 1.7, [place] # (Auto) 0.6, Eos # (Auto) 0.3, Baso # (Auto) 0.0, PT 12.7 H, INR 1.16 H, VBG pH 7.33, VBG pCO2 52.1 H, VBG pO2 41.2 H, VBG HCO3 26.9, VBG Total CO2 28.5 H, VBG O2 Saturation 73.1 H, VBG Base Excess 1.0, VBG Lactic Acid 1.6, Sodium 135 L, Potassium 4.8, Chloride 102, Carbon Dioxide 27, Anion Gap 10.8, BUN 31 H, Creatinine 2.10 H, Estimated Creat Clear 18, Estimated GFR 23 L, Est GFR ( Amer) 28 L, Glucose 116 H, Calcium 9.8, Magnesium 2.1, Total Bilirubin 0.6, AST 26, ALT 10 L, Alkaline Phosphatase 135 H, Troponin I < 0.01, NT-Pro-B Natriuret Pep 1460 H, Total Protein 6.8, Albumin 3.0 L, Globulin 3.8 H, Albumin/Globulin Ratio 0.8 L, Lipase 15 L 04/22/25 15:10: Chlamy pneumoniae PCR Not detected, Adenovirus (PCR) Not detected, B. pertussis DNA (PCR) Not detected, Coronavirus OC43 (PCR) Not detected, Coronavirus HKU1 (PCR) Not detected, Coronavirus 229E (PCR) Not detected, SARS-CoV-2 (PCR) Not detected, Coronavirus NL63 (PCR) Not detected, Human Metapneumovir PCR Not detected, Influenza A (H1) PCR Not detected, Influ A (H1N1/09) PCR Not detected, Influenza A (H3) PCR Not detected, Influenza Type A (PCR) Not detected, Influenza Type B (PCR) Not detected, M. pneumoniae (PCR) Not detected, Parainfluenza 1 (PCR) Not detected, Parainfluenza 2 (PCR) Not detected, Parainfluenza 3 (PCR) Not detected, Parainfluenza 4 (PCR) Not detected, RSV (PCR) Not detected, Entero/Rhino (PCR) Not detected 04/22/25 15:35: Lactate 0.9 04/22/25 18:30: Fluid Source Pleural, Fluid Volume 24, Fluid Appearance Hazy, Fluid RBC (Auto) 1, Fld Tot Nucleated Cell 252, Fld Polynuclear WBCs % 19, Fld Mononuclear WBCs % 81 04/22/25 19:21: Troponin I < 0.01 Orders (Tests/Meds): ED MEDICATIONS Generic Name Dose Route Start Last Admin Trade Name Freq PRN Reason Stop Dose Admin Acetaminophen 650 mg 04/22/25 17:40 Acetaminophen 325mg Tab PO 05/22/25 17:39 Q4HP PRN Fever or Mild Pain (1-3) Hydrocodone Bitart/Acetaminophen 1 tab 04/22/25 17:40 Hydrocodone/Apap 5/325 Mg Tablet PO 05/22/25 17:39 Q4HP PRN Mild to Moderate Pain (1-6) Buspirone HCl 5 mg 04/22/25 21:00 Buspirone Hcl 5 Mg Tablet PO 05/22/25 20:59 BID FARIHA Levofloxacin/Dextrose 750 mg in 150 mls @ 100 mls/hr 04/23/25 09:00 Levofloxacin 750mg/150ml Premix IV 05/03/25 08:59 DAILY FARIHA Insulin Human Lispro 0 unit 04/22/25 21:00 Humalog 100 Units/Ml 10ml Vial (Ssi) SUBCUT 05/22/25 20:59 ACHS FARIHA Protocol Levetiracetam 500 mg 04/22/25 21:00 Levetiracetam 500 Mg Tablet PO 05/22/25 20:59 BID FARIHA Nicotine 21 mg 04/22/25 17:40 Nicotine 21mg/24hr Patch TD 05/22/25 17:39 DAILYP PRN Nicotine Cravings Pantoprazole Sodium 40 mg 04/22/25 21:00 Pantoprazole 40mg Tablet PO 05/22/25 20:59 HS FARIHA Sertraline HCl 100 mg 04/23/25 09:00 Sertraline 100mg Tablet PO 05/23/25 08:59 DAILY FARIHA Sodium Chloride 3 ml 04/22/25 18:24 Sodium Chloride 3% 15ml Neb IH 05/22/25 18:23 ONCE PRN INDUCE SPUTUM COLLECTION Discontinued Medications Generic Name Dose Route Start Last Admin Trade Name Freq PRN Reason Stop Dose Admin Sodium Chloride 1,000 mls @ 999 mls/hr 04/22/25 15:31 04/22/25 18:59 Sod Chlor 0.9% 1000ml Bag IV 04/22/25 16:31 Infused .Q1H1M ONE Infusion Iopamidol 70 ml 04/22/25 15:56 04/22/25 15:57 Iopamidol-370 (76%);100ml Bottle IV 04/22/25 15:57 70 ml ONCE ONE Administration Sodium Chloride 50 ml 04/22/25 15:56 04/22/25 15:57 0.9 % Sodium Chloride 50 Ml Vial IV 04/22/25 15:57 50 ml ONCE ONE Administration Sodium Chloride 10 ml 04/22/25 15:56 04/22/25 15:57 Sodium Chloride 0.9% 10ml Syr (Rad Only) IV 05/22/25 15:55 10 ml NEEDED PRN Administration Maintain IV Site ORDERS Category Date Time Status CT angio chest PE protocol Stat Cat Scan 04/22/25 15:[address] head/brain wo con Stat Cat Scan 04/22/25 14:25 Completed Pulmonology Consult [Consult to Pulmonology] [CONS] Cons 04/22/25 17:40 Active Routine CXR --portable [XR chest portable] Stat Exams 04/22/25 19:08 Completed XR chest portable Stat Exams 04/22/25 14:25 Completed Body Fluid: Cell Count w/ Diff Stat Lab 04/22/25 18:30 Completed Complete Blood Count Auto Diff AMLAB Lab 04/23/25 06:00 Ordered Complete Blood Count Auto Diff Stat Lab 04/22/25 15:00 Completed Comprehensive Metabolic Panel AMLAB Lab 04/23/25 06:00 Ordered Comprehensive Metabolic Panel Stat Lab 04/22/25 15:00 Completed Cytology Routine Lab 04/22/25 17:27 Ordered Full Resp Panel w/COVID ([facility]) Routine Lab 04/22/25 15:10 Completed Hemoglobin A1C Routine Lab 04/22/25 18:15 Received Lactic Acid Stat Lab 04/22/25 15:35 Completed Lipase Stat Lab 04/22/25 15:00 Completed Magnesium AMLAB Lab 04/23/25 06:00 Ordered Magnesium Stat Lab 04/22/25 15:00 Completed NT Pro Brain Natriuretic Pep. Stat Lab 04/22/25 15:00 Completed PT INR [Prothrombin Time INR] Stat Lab 04/22/25 15:00 Completed Troponin I Q3H Lab 04/22/25 19:21 Completed Troponin I Q3H Lab 04/22/25 22:21 Ordered Troponin I Stat Lab 04/22/25 15:00 Completed Urinalysis and Microscopic Stat Lab 04/22/25 19:44 Completed Body Fluid Cult & Gram Stain Stat Micro 04/22/25 18:30 Received Sputum Culture & Gram Stain Stat Micro 04/22/25 18:24 Ordered Urine Culture Stat Micro 04/22/25 19:44 Received VBG [Venous Blood Gas] Stat RT 04/22/25 15:00 Completed ECG Data Tracing #1: Independently interpreted by me rate is 80, rhythm is intermittently irregular, no ST elevation in anatomical contiguous leads, QTc 384. Medical Decision Narrative: 79-year-old female presents to the emergency department via EMS for generalized weakness worsening oxygen requirement and altered mental status, concern for pneumonia, differential diagnose include but not limited to metabolic encephalopathy, uremic cephalopathy, encephalopathy, cardiac arrhythmia electrolyte disturbance, pneumonia, acute UTI, hypovolemia, acute bronchitis among others. I discussed this patient's case with the attending Dr. Bernstein Will obtain basic laboratory studies EKG, CT head without contrast, chest x-ray, lactic acid lipase level magnesium level proBNP, coags, troponin, full respiratory panel, UA and VBG. VBG is notable for normal pH, pCO2 is minimally elevated at 50.1, bicarb within normal limits. I reviewed the patient's chest x-ray,, radiology report is not available for my direct interrogation however patient has near collapse/post obstructive atelectasis of the left lung field will obtain CTA chest with without contrast PE protocol due to patient's history of malignancy. I reviewed the patient's chest x-ray along the corresponding radiologic report, complete opacification left hemithorax without shift of the mediastinal structure to the left, masslike opacity right upper lobe approximately 2 cm. CBC is notable for leukocytosis of 14.7, globin and hematocrit decreased 9.4, appears baseline, Will add on blood cultures. I reviewed the patient's CT head without contrast on the corresponding radiologic report, no radiographic evidence of acute intracranial pathology, will give 1 L IV NS, nursing staff notified me that the patient had no urine output with urine catheterization. Bret Bernstein MD: I was consulted by the CALIXTO, and we discussed the complexity of the problems being addressed. I approved the treatment and management plan for this patient's care in the emergency department, thus performing a substantive portion of the medical decision making. CT imaging pending at time of transition of care to the oncoming physician, Dr. Carrillo. <Sol Carrillo, DO - Last Filed: 04/22/25 20:58> Vital Signs: 04/22/25 13:47 04/22/25 15:00 04/22/25 15:30 Temperature 98.6 F Temperature Source Oral Pulse Rate 76 76 Pulse Rate [Left Radial] 77 Respiratory Rate 24 28 H 25 H Blood Pressure 130/56 L 129/67 Blood Pressure [Right Arm] 114/59 L Blood Pressure Mean [Right Arm] 77 Blood Pressure Source [Right Arm] Blood Pressure Position [Right Arm] 02 Sat by Pulse Oximetry 99 97 97 Oxygen Delivery Method Nasal Cannula Oxygen Flow Rate (LPM) 3 04/22/25 16:30 04/22/25 17:00 04/22/25 17:30 Temperature Temperature Source Pulse Rate 74 74 Pulse Rate [Left Radial] Respiratory Rate 23 18 26 H Blood Pressure 102/46 L 107/47 L 104/49 L Blood Pressure [Right Arm] Blood Pressure Mean [Right Arm] Blood Pressure Source [Right Arm] Blood Pressure Position [Right Arm] 02 Sat by Pulse Oximetry 99 99 Oxygen Delivery Method Oxygen Flow Rate (LPM) 04/22/25 18:00 04/22/25 19:59 Temperature 98 F Temperature Source Oral Pulse Rate 74 Pulse Rate [Left Radial] 71 Respiratory Rate 27 H 22 Blood Pressure 146/78 H Blood Pressure [Right Arm] 146/72 H Blood Pressure Mean [Right Arm] 96 Blood Pressure Source [Right Arm] Automatic Cuff Blood Pressure Position [Right Arm] Sitting 02 Sat by Pulse Oximetry 92 L 96 Oxygen Delivery Method Nasal Cannula Oxygen Flow Rate (LPM) 3 Lab Data Lab Results 04/22/25 15:00: WBC 14.7 H, RBC 3.80 L, Hgb 9.4 L, Hct 30.8 L, MCV 81.1, MCH 24.7 L, MCHC 30.5 L, RDW 17.2, Plt Count 220, MPV 10.6 H, Neut % (Auto) 81.8 H, Lymph % (Auto) 11.6, [place] % (Auto) 4.2, Eos % (Auto) 1.7, Baso % (Auto) 0.2, N eut # (Auto) 12.0 H, Lymph # (Auto) 1.7, [place] # (Auto) 0.6, Eos # (Auto) 0.3, Baso # (Auto) 0.0, PT 12.7 H, INR 1.16 H, VBG pH 7.33, VBG pCO2 52.1 H, VBG pO2 41.2 H, VBG HCO3 26.9, VBG Total CO2 28.5 H, VBG O2 Saturation 73.1 H, VBG Base Excess 1.0, VBG Lactic Acid 1.6, Sodium 135 L, Potassium 4.8, Chloride 102, Carbon Dioxide 27, Anion Gap 10.8, BUN 31 H, Creatinine 2.10 H, Estimated Creat Clear 18, Estimated GFR 23 L, Est GFR ( Amer) 28 L, Glucose 116 H, Calcium 9.8, Magnesium 2.1, Total Bilirubin 0.6, AST 26, ALT 10 L, Alkaline Phosphatase 135 H, Troponin I < 0.01, NT-Pro-B Natriuret Pep 1460 H, Total Protein 6.8, Albumin 3.0 L, Globulin 3.8 H, Albumin/Globulin Ratio 0.8 L, Lipase 15 L 04/22/25 15:10: Chlamy pneumoniae PCR Not detected, Adenovirus (PCR) Not detected, B. pertussis DNA (PCR) Not detected, Coronavirus OC43 (PCR) Not detected, Coronavirus HKU1 (PCR) Not detected, Coronavirus 229E (PCR) Not detected, SARS-CoV-2 (PCR) Not detected, Coronavirus NL63 (PCR) Not detected, Human Metapneumovir PCR Not detected, Influenza A (H1) PCR Not detected, Influ A (H1N1/09) PCR Not detected, Influenza A (H3) PCR Not detected, Influenza Type A (PCR) Not detected, Influenza Type B (PCR) Not detected, M. pneumoniae (PCR) Not detected, Parainfluenza 1 (PCR) Not detected, Parainfluenza 2 (PCR) Not detected, Parainfluenza 3 (PCR) Not detected, Parainfluenza 4 (PCR) Not detected, RSV (PCR) Not detected, Entero/Rhino (PCR) Not detected 04/22/25 15:35: Lactate 0.9 04/22/25 18:30: Fluid Source Pleural, Fluid Volume 24, Fluid Appearance Hazy, Fluid RBC (Auto) 1, Fld Tot Nucleated Cell 252, Fld Polynuclear WBCs % 19, Fld Mononuclear WBCs % 81 04/22/25 19:21: Troponin I < 0.01 Orders (Tests/Meds): ED MEDICATIONS Generic Name Dose Route Start Last Admin Trade Name Freq PRN Reason Stop Dose Admin Acetaminophen 650 mg 04/22/25 17:40 Acetaminophen 325mg Tab PO 05/22/25 17:39 Q4HP PRN Fever or Mild Pain (1-3) Hydrocodone Bitart/Acetaminophen 1 tab 04/22/25 17:40 Hydrocodone/Apap 5/325 Mg Tablet PO 05/22/25 17:39 Q4HP PRN Mild to Moderate Pain (1-6) Buspirone HCl 5 mg 04/22/25 21:00 Buspirone Hcl 5 Mg Tablet PO 05/22/25 20:59 BID FARIHA Levofloxacin/Dextrose 750 mg in 150 mls @ 100 mls/hr 04/23/25 09:00 Levofloxacin 750mg/150ml Premix IV 05/03/25 08:59 DAILY FARIHA Insulin Human Lispro 0 unit 04/22/25 21:00 Humalog 100 Units/Ml 10ml Vial (Ssi) SUBCUT 05/22/25 20:59 ACHS FARIHA Protocol Levetiracetam 500 mg 04/22/25 21:00 Levetiracetam 500 Mg Tablet PO 05/22/25 20:59 BID FARIHA Nicotine 21 mg 04/22/25 17:40 Nicotine 21mg/24hr Patch TD 05/22/25 17:39 DAILYP PRN Nicotine Cravings Pantoprazole Sodium 40 mg 04/22/25 21:00 Pantoprazole 40mg Tablet PO 05/22/25 20:59 HS FARIHA Sertraline HCl 100 mg 04/23/25 09:00 Sertraline 100mg Tablet PO 05/23/25 08:59 DAILY FARIHA Sodium Chloride 3 ml 04/22/25 18:24 Sodium Chloride 3% 15ml Neb IH 05/22/25 18:23 ONCE PRN INDUCE SPUTUM COLLECTION Discontinued Medications Generic Name Dose Route Start Last Admin Trade Name Freq PRN Reason Stop Dose Admin Sodium Chloride 1,000 mls @ 999 mls/hr 04/22/25 15:31 04/22/25 18:59 Sod Chlor 0.9% 1000ml Bag IV 04/22/25 16:31 Infused .Q1H1M ONE Infusion Iopamidol 70 ml 04/22/25 15:56 04/22/25 15:57 Iopamidol-370 (76%);100ml Bottle IV 04/22/25 15:57 70 ml ONCE ONE Administration Sodium Chloride 50 ml 04/22/25 15:56 04/22/25 15:57 0.9 % Sodium Chloride 50 Ml Vial IV 04/22/25 15:57 50 ml ONCE ONE Administration Sodium Chloride 10 ml 04/22/25 15:56 04/22/25 15:57 Sodium Chloride 0.9% 10ml Syr (Rad Only) IV 05/22/25 15:55 10 ml NEEDED PRN Administration Maintain IV Site ORDERS Category Date Time Status CT angio chest PE protocol Stat Cat Scan 04/22/25 15:[address] head/brain wo con Stat Cat Scan 04/22/25 14:25 Completed Pulmonology Consult [Consult to Pulmonology] [CONS] Cons 04/22/25 17:40 Active Routine CXR --portable [XR chest portable] Stat Exams 04/22/25 19:08 Completed XR chest portable Stat Exams 04/22/25 14:25 Completed Body Fluid: Cell Count w/ Diff Stat Lab 04/22/25 18:30 Completed Complete Blood Count Auto Diff AMLAB Lab 04/23/25 06:00 Ordered Complete Blood Count Auto Diff Stat Lab 04/22/25 15:00 Completed Comprehensive Metabolic Panel AMLAB Lab 04/23/25 06:00 Ordered Comprehensive Metabolic Panel Stat Lab 04/22/25 15:00 Completed Cytology Routine Lab 04/22/25 17:27 Ordered Full Resp Panel w/COVID ([facility]) Routine Lab 04/22/25 15:10 Completed Hemoglobin A1C Routine Lab 04/22/25 18:15 Received Lactic Acid Stat Lab 04/22/25 15:35 Completed Lipase Stat Lab 04/22/25 15:00 Completed Magnesium AMLAB Lab 04/23/25 06:00 Ordered Magnesium Stat Lab 04/22/25 15:00 Completed NT Pro Brain Natriuretic Pep. Stat Lab 04/22/25 15:00 Completed PT INR [Prothrombin Time INR] Stat Lab 04/22/25 15:00 Completed Troponin I Q3H Lab 04/22/25 19:21 Completed Troponin I Q3H Lab 04/22/25 22:21 Ordered Troponin I Stat Lab 04/22/25 15:00 Completed Urinalysis and Microscopic Stat Lab 04/22/25 19:44 Completed Body Fluid Cult & Gram Stain Stat Micro 04/22/25 18:30 Received Sputum Culture & Gram Stain Stat Micro 04/22/25 18:24 Ordered Urine Culture Stat Micro 04/22/25 19:44 Received VBG [Venous Blood Gas] Stat RT 04/22/25 15:00 Completed Medical Decision Narrative: 79-year-old female presents to the emergency department via EMS for generalized weakness worsening oxygen requirement and altered mental status, concern for pneumonia, differential diagnose include but not limited to metabolic encephalopathy, uremic cephalopathy, encephalopathy, cardiac arrhythmia electrolyte disturbance, pneumonia, acute UTI, hypovolemia, acute bronchitis among others. I discussed this patient's case with the attending Dr. Bernstein, as well as the attending physician at shift change. Will obtain basic laboratory studies EKG, CT head without contrast, chest x-ray, lactic acid lipase level magnesium level proBNP, coags, troponin, full respiratory panel, UA and VBG. VBG is notable for normal pH, pCO2 is minimally elevated at 50.1, bicarb within normal limits. I reviewed the patient's chest x-ray,, radiology report is not available for my direct interrogation however patient has near collapse/post obstructive atelectasis of the left lung field will obtain CTA chest with without contrast PE protocol due to patient's history of malignancy. I reviewed the patient's chest x-ray along the corresponding radiologic report, complete opacification left hemithorax without shift of the mediastinal structure to the left, masslike opacity right upper lobe approximately 2 cm. CBC is notable for leukocytosis of 14.7, globin and hematocrit decreased 9.4, appears baseline, Will add on blood cultures. I reviewed the patient's CT head without contrast on the corresponding radiologic report, no radiographic evidence of acute intracranial pathology, will give 1 L IV NS, nursing staff notified me that the patient had no urine output with urine catheterization. Bret Bernstein MD: I was consulted by the CALIXTO, and we discussed the complexity of the problems being addressed. I approved the treatment and management plan for this patient's care in the emergency department, thus performing a substantive portion of the medical decision making. CT imaging pending at time of transition of care to the oncoming physician, Dr. Carrillo. Coags are notable for PT elevation that is minimal at 12.7, INR 1.16. CMP is notable for acute kidney injury with a BUN of 31 and creatinine of 2.1, which is elevated outside patient's baseline. ALP is minimally elevated at 135. No lactic acidosis. I discussed this patient's case in depth with the on-call fleet manager/dispatch at approximately 4:58 PM, he would like me to have discussion with the family about goals of care, he believes the patient does meet admission criteria, will need further pulmonology workup possible bronchial biopsy versus thoracentesis as inpatient versus in the ED. I will discuss this with family. I had a long discussion with the patient's power of environmental attorney (son), Devon Valle over the phone at approximately 5:08 PM, I discussed admission with IV antibiotics and further pulmonology consultation, discussed need for thoracentesis performed in the emergency department versus inpatient, also discussed potential comfort care/hospice consultation as inpatient depending on the patient and family's wishes. He would like to discuss this with his sister and call me back with further thoughts. I had a long discussion with the patient's son Devon Valle over the phone at approximately 5:20 PM, he spoke to his sister and all in agreement to proceed with diagnostic thoracentesis in the emergency department. 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 Once again patient voiced understanding and he elected to proceed on the patient's behalf. I along with the attending physician Dr. Carrillo had interactive discussion with the on-call fleet manager/dispatch over the phone at approximately 5:35 PM, we will proceed with thoracentesis diagnostic and therapeutic. I discussion with the hospital physician at approximately 5:40 PM, he is in agreement with the current admission plan/treatment plan. Discussed plan with hospitalist physician in person at the bedside at approximately 5:50 PM, he will place orders, and after thoracentesis patient will be admitted to the floor, will hold off on IV antibiotics at this time. Viral respiratory panel is negative Successful thoracentesis, patient tolerated the procedure well no apparent complications see attending physician procedure note for full details. Will send off pleural fluid cytology, cell count, glucose count, LD, protein count. Closed obtain occasion was performed with patient's son KEVIN over the phone at approximately 6:57 PM, discussing successful thoracentesis. Plan for admission. Once again patient's family is in agreement with current treatment plan/admission plan. Sol Carrillo DO I assumed care of the patient with LAUREN Campo at 1500. After multiple discussions with pulmonology. They asked if a diagnostic and therapeutic thoracentesis could be performed in the emergency department. After discussion with family, they agreed with this plan. A large pocket was found left side posteriorly. Patient was draped and procedure was done in sterile condition. 500 mL of fluid was removed which was serous in color. Patient's thoracentesis which was a safety centesis catheter was connected to a Pleur-evac. Patient studies were sent. Procedures <Sol Carrillo DO - Last Filed: 04/22/25 20:58> Chest Tube Chest Tube 1: Chest tube type: [id number] Chest Tube Location: left and posterior axillary line Chest Tube Prep: Yes other Local Anesthetic: lidocaine 1% Amount of anesthesia used (mL): 10 Incision Made With: #10 blade Post Procedure: sutured to skin and sterile dressing applied Tube Drainage: fluid Amount of initial drainage (mL): 500 Post Procedure CXR?: Yes Patient Tolerated Procedure: Yes Critical Care <Bret Bernstein MD - Last Filed: 04/22/25 15:31> Critical Care Time Critical Care Time: No
--- NOTE | 2025-04-22 14:24 | PC.NURSE ---
paged who is market relationship manager for Clinical Application Manager at this time.
--- NOTE | 2025-04-22 14:25 | XR_ITS ---
PROCEDURE INFORMATION: Exam: XR Chest Exam date and time: 04/22/2025 2:44 PM Age: 79 years old Clinical indication: Other: Weakness, AMS TECHNIQUE: Imaging protocol: Radiologic exam of the chest. Views: 1 view. COMPARISON: CR XR CHEST PORTABLE 07/23/2024 1:15 AM FINDINGS: Lungs: Masslike opacity in the right upper lobe of approximately 2 cm. Pleural spaces: Unremarkable. No pleural effusion. No pneumothorax. Heart/Mediastinum: Complete opacification left hemithorax without shift of the mediastinal structures to the left. Bones/joints: Unremarkable. IMPRESSION: 1. Complete opacification left hemithorax without shift of the mediastinal structures to the left. 2. Masslike opacity in the right upper lobe of approximately [address]
--- NOTE | 2025-04-22 14:25 | CT_ITS ---
PROCEDURE INFORMATION: Exam: CT Head Without Contrast Exam date and time: 04/22/2025 2:41 PM Age: 79 years old Clinical indication: Altered mental status/memory loss; Additional info: AMS TECHNIQUE: Imaging protocol: Computed tomography of the head without contrast. Radiation optimization: All CT scans at this facility use at least one of these dose optimization techniques: automated exposure control; mA and/or kV adjustment per patient size (includes targeted exams where dose is matched to clinical indication); or iterative reconstruction. COMPARISON: CT ANGIO HEAD 07/22/2024 11:36 PM FINDINGS: Brain: ExtensiveVentricles are enlarged on the basis of mild diffuse cerebral volume loss. Hypodensity is seen in the periventricular cerebral white matter. This change is nonspecific but is most likely secondary to chronic ischemia within microvascular distributions. No intra or extra-axial masses, lesions or collections. [place] white matter distinction is maintained throughout the brain. No radiographic evidence of intracranial hemorrhage. No parafalcine or tentorial hemorrhage. Extensive encephalomalacia along the frontal parietal convexity on the left. Cerebral ventricles: No ventriculomegaly. Paranasal sinuses: Visualized sinuses are unremarkable. No fluid levels. Mastoid air cells: Visualized mastoid air cells are well aerated. Bones: Greater and lesser wings of the sphenoid normal. Retro bulbar fat normal. Medial and lateral pterygoids normal. Soft tissues: Unremarkable. IMPRESSION: No radiographic evidence of acute intracranial pathology.
--- OUTSIDE RECORDS SUMMARY | 2025-04-22 14:35 | XMS_ITS | Encounter Summary ---
Author Organization [employer] ([place], [place], [place], [place], [place]) Address [address] [place] [address] Care Team Providers Care Oracle R12 Developer Name Role Phone Unavailable Primary Care Provider Unavailabl e Encounter Details Date Type Department Care Team (Late st Contact Info) Description 07/11/2018 Transcribed Document [facility] Radiology [address] [place] [address] Provider, Layla Acosta MD Social [...] form. Electronically signed by Layla Kang Conversion Tool Profiling Machine Set Up Operator Cerner at 09/22/2022 11:00 AM CDT documented in this encounter Plan of Treatment Not on file documented as of this encounter Visit Diagnoses Not on filedocumented in this encounter
--- OUTSIDE RECORDS SUMMARY | 2025-04-22 14:35 | XMS_ITS | Encounter Summary ---
Author Organization [employer] ([place], [place], [place], [place], [place]) Address [address] [place] [address] Care Team Providers Care Rn Neurosurgical Name Role Phone Unavailable Primary Care Provider Unavailabl e Encounter Details Date Type Department Care Team (Late st Contact Info) Description 07/13/2018 Transcribed Document [facility] Radiology [address] [place] [address] Provider, Layla Acosta MD Social [...] Miscellaneous Notes * Cerner Conversion Note - [facility] Karla Rojo MD - 07/13/2018 11:48 AM EDT [facility] [address], [place] [address] Patient Copy Patient Information: Name: FLOR LUX Current Date: 07/13/2018 10:48:09 : 1945 Patient Address: [place] [address] Patient Attending Physician: FREDERIC ADAMS MD-ORT Primary Care Provider: RODO SANFORD MD-[facility] Primary Care Provider Discharge Diagnosis: Weakness Weight on Admission: 175 lb, 0 oz Comment: Follow-up Instructions: With: Address: When: Follow up with specialty services Within 1 week Comments: nephrology With: Address: When: Follow up with primary care provider Within 2 to 3 days With: Address: When: Follow up with primary care provider Within 2 to 3 days With: Address: When: DEYSI MEJIA [address] [facility] [place] [address] [facility] (1) 11:15 AM Comments: Appointment has been made Discharge Instructions: Medical Equipment for Home Use: BLUEGRASS BRACING FOR CPM RENTAL Home Health Services: [facility] [phone] Immunizations Documented During Stay: No Immunizations Found [...] Barley. Bulgur wheat. Millet. Bran muffins. Popcorn. [place] wafer crackers. ?? Vegetables Sweet potatoes. Spinach. Kale. Artichokes. Cabbage. Broccoli. Green peas. Carrots. Squash. ?? Fruits Berries. Pears. Apples. Oranges. Avocados. Prunes and raisins. Dried figs. ?? Meats and Other Protein Sources [place], kidney, hoff, and soy beans. Split peas. [...] alphonso has 11 g of protein. ?? [place] seeds ??? 1 oz has 5.5 g [...] floor. ?? Place frequently used items in lysw-fs-fugwe places ?? Keep electrical cables out of [...] ? Using the bathroom. ? Using household therapist asst or toxic chemicals. ? Touching or taking [...] are a day sleeper or work a retail shift manager. Some people have thoughts about [...] may report side effects to FDA at 4-487-JRT-6945. What other drugs will affect gabapentin? Taking gabapentin with other drugs that make you sleepy can worsen this effect. Ask your doctor before taking a sleeping pill, narcotic medication, muscle relaxer, or medicine for anxiety, depression, or seizures. Other drugs may interact with gabapentin, including prescription and muhc-dwq-zzsvdmq medicines, vitamins, and herbal products. Tell your [...] to ensure that the information provided by [employer]. ('Mult[employer]') is accurate, up-to-date, and complete, but no guarantee is made to that effect. Drug information contained herein may be time sensitive. [employer] information has been compiled for use by healthcare practitioners and consumers in the [place] and therefore [employer] does not warrant that uses outside of the [place] are appropriate, unless specifically indicated otherwise. [employer] drug information does not endorse drugs, diagnose patients or recommend therapy. [employer] drug information is an informational resource designed [...] effective or appropriate for any given patient. [employer] does not assume any responsibility for any aspect of healthcare administered with the aid of information [facility] provides. The information contained herein is not intended to cover all possible uses, directions, precautions, warnings, drug interactions, allergic reactions, or adverse effects. If you have questions about the drugs you are taking, check with your doctor, nurse or pharmacist. Copyright 0502-4910 [employer]. Version: 14.01. Revision Date: 02/08/2017. oxycodone (ox [...] The extended-release form of oxycodone is for ufozhb-zqx-oyfix treatment of pain and should not be [...] against the law. Stop taking all other jqzkjq-ypc-eshpk narcotic pain medicines when you start taking [...] may report side effects to FDA at 3-422-AKE-2110. What other drugs will affect oxycodone? You [...] may affect oxycodone. This includes prescription and ofcp-hvt-koirdgw medicines, vitamins, and herbal products. Not all [...] to ensure that the information provided by [employer]. ('Multum') is accurate, up-to-date, and complete, but no guarantee is made to that effect. Drug information contained herein may be time sensitive. [employer]xt information has been compiled for use by healthcare practitioners and consumers in the [place] and therefore [employer] does not warrant that uses outside of the [place] are appropriate, unless specifically indicated otherwise. [employer] drug information does not endorse drugs, diagnose patients or recommend therapy. [employer] drug information is an informational resource designed [...] appropriate for any given patient. [facility] does not assume any responsibility for any aspect of healthcare administered with the aid of information [facility] provides. The information contained herein is not intended to cover all possible uses, directions, precautions, warnings, drug interactions, allergic reactions, or adverse effects. If you have questions about the drugs you are taking, check with your doctor, nurse or pharmacist. Copyright 2952-[address] [employer] [facility]. Version: 13.02. Revision Date: 03/29/2018. tramadol (TRAM [...] extended-release form of this medicine is for sqssvy-amf-lmonq treatment of pain. This form of tramadol [...] against the law. Stop taking all other fbmmmr-owu-unkkk narcotic pain medications when you start taking [...] may report side effects to FDA at 5-356-CAV-8504. What other drugs will affect tramadol? You [...] may affect tramadol. This includes prescription and ymkj-zya-zobvxrl medicines, vitamins, and herbal products. Not all [...] to ensure that the information provided by [employer]. ('Multum') is accurate, up-to-date, and complete, but no guarantee is made to that effect. Drug information contained herein may be time sensitive. [employer]xt information has been compiled for use by healthcare practitioners and consumers in the [place] and therefore [employer] does not warrant that uses outside of the [place] are appropriate, unless specifically indicated otherwise. Mult[employer]'s drug information does not endorse drugs, diagnose patients or recommend therapy. [employer] drug information is an informational resource designed [...] effective or appropriate for any given patient. [employer] does not assume any responsibility for any aspect of healthcare administered with the aid of information [employer] provides. The information contained herein is not intended to cover all possible uses, directions, precautions, warnings, drug interactions, allergic reactions, or adverse effects. If you have questions about the drugs you are taking, check with your doctor, nurse or pharmacist. Copyright 0288-2367 [employer]. Version: 18.02. Revision Date: 03/29/2018. CIGARETTE SMOKING: The facts are clear, cigarette smoking will shorten your life. Smoking can cause many illnesses along the way. As a healthcare provider, we recommend that you stop smoking. Assistance with quitting is available by contacting 0-734-WSVH-NOW. This is a free resource providing counseling, [...] Be sure to sign up for the [employer] patient portal, which gives you 22/11 access to your medical information ??? including these discharge instructions ??? using your computer, smartphone, or tablet. Just go to [employer] to get started. Questions? Call . [facility] would like to thank you for allowing us to assist you with your healthcare needs. IMACI RITA MOR, (or bilingual inside sales representative) have received the above patient education materials/instructions and have verbalized understanding: Patient Signature _ Date/Time Patient Small Kick Press Operator Signature (if needed) Date/Time Clinician/Hospital Small Kick Press Operator Signature (if needed) Date/Time Electronically signed by Jorge Luis, [facility] Conversion Miner Placer Cerner at 09/22/2022 11:00 AM CDT documented in this encounter Plan of Treatment Not on file documented as of this encounter Visit Diagnoses Not on filedocumented in this encounter
--- OUTSIDE RECORDS SUMMARY | 2025-04-22 14:35 | XMS_ITS | Encounter Summary ---
Author Organization [employer] ([place], [place], [place], [place], [place]) Address [address] [place] [address] Care Team Providers Care Hanger Off Name Role Phone Unavailable Primary Care Provider Unavailabl e Encounter Details Date Type Department Care Team (Late st Contact Info) Description 07/13/2018 Transcribed Document [facility] Radiology 1 [place] [address] ProviderLayla MD Social History Tobacco [...] Miscellaneous Notes * Cerner Conversion Note - [facility] Karla Rojo MD - 07/13/2018 6:00 AM EDT Chart Check [...]
--- OUTSIDE RECORDS SUMMARY | 2025-04-22 14:35 | XMS_ITS | Encounter Summary ---
Author Organization [employer] ([place], [place], [place], [place], [place]) Address [address] [place] [address] Care Team Providers Care Slasher Sawyer Name Role Phone Unavailable Primary Care Provider Unavailabl e Encounter Details Date Type Department Care Team (Late st Contact Info) Description 07/13/2018 Transcribed Document [facility] Radiology [address] [place] [address] Provider, Layla Acosta MD Social [...] Miscellaneous Notes * Cerner Conversion Note - [facility] Karla Rojo MD - 07/13/2018 12:48 PM EDT [facility] [address], [place] [address] Patient Copy Patient Information: Name: FLOR LUX Current Date: 07/13/2018 11:48:22 : 1945 Patient Address: [place] [address] Patient Attending Physician: FREDERIC ADAMS MD-ORT Primary Care Provider: RODO SANFORD MD-[facility] Primary Care Provider Discharge Diagnosis: Weakness Weight on Admission: 175 lb, 0 oz Comment: Follow-up Instructions: With: Address: When: Follow up with specialty services Within 2 to 3 days Comments: Nephrology With: Address: When: Follow up with primary care provider Within 2 to 3 days With: Address: When: DEYSI MEJIA [address] [facility] [place] [address] [employer] (1) 11:15 AM Comments: Appointment has been made Discharge Instructions: Medical Equipment for Home Use: BLUEGRASS BRACING FOR CPM RENTAL Home Health Services: [facility] [phone] Immunizations Documented During Stay: No Immunizations Found [...] Barley. Bulgur wheat. Millet. Bran muffins. Popcorn. [place] wafer crackers. ?? Vegetables Sweet potatoes. Spinach. Kale. Artichokes. Cabbage. Broccoli. Green peas. Carrots. Squash. ?? Fruits Berries. Pears. Apples. Oranges. Avocados. Prunes and raisins. Dried figs. ?? Meats and Other Protein Sources [place], kidney, hoff, and soy beans. Split peas. [...] alphonso has 11 g of protein. ?? [place] seeds ??? 1 oz has 5.5 g [...] floor. ?? Place frequently used items in yqca-ir-xkvni places ?? Keep electrical cables out of [...] ? Using the bathroom. ? Using household assistant brand manager or toxic chemicals. ? Touching or [...] a day sleeper or work a shift production supervisor. Some people have thoughts about suicide [...] may report side effects to FDA at 0-558-HSE-2805. What other drugs will affect gabapentin? Taking gabapentin with other drugs that make you sleepy can worsen this effect. Ask your doctor before taking a sleeping pill, narcotic medication, muscle relaxer, or medicine for anxiety, depression, or seizures. Other drugs may interact with gabapentin, including prescription and pwqk-gba-vpuiklo medicines, vitamins, and herbal products. Tell your [...] to ensure that the information provided by [employer]. ('[employer]') is accurate, up-to-date, and complete, but no guarantee is made to that effect. Drug information contained herein may be time sensitive. [employer] information has been compiled for use by healthcare practitioners and consumers in the [place] and therefore [employer] does not warrant that uses outside of the [place] are appropriate, unless specifically indicated otherwise. [employer]'s drug information does not endorse drugs, diagnose patients or recommend therapy. [employer] drug information is an informational resource designed [...] effective or appropriate for any given patient. [employer] does not assume any responsibility for any aspect of healthcare administered with the aid of information [employer] provides. The information contained herein is not intended to cover all possible uses, directions, precautions, warnings, drug interactions, allergic reactions, or adverse effects. If you have questions about the drugs you are taking, check with your doctor, nurse or pharmacist. Copyright 3716-7790 [employer]. Version: 14.01. Revision Date: 02/08/2017. oxycodone (ox [...] The extended-release form of oxycodone is for elynzv-lpn-yilot treatment of pain and should not be [...] against the law. Stop taking all other gitkws-ucs-xqswg narcotic pain medicines when you start taking [...] may report side effects to FDA at 3-317-GKS-8348. What other drugs will affect oxycodone? You [...] may affect oxycodone. This includes prescription and hlwp-tnr-peygfss medicines, vitamins, and herbal products. Not all [...] to ensure that the information provided by [employer]. ('Multum') is accurate, up-to-date, and complete, but no guarantee is made to that effect. Drug information contained herein may be time sensitive. [employer] information has been compiled for use by healthcare practitioners and consumers in the [place] and therefore [employer] does not warrant that uses outside of the [place] are appropriate, unless specifically indicated otherwise. [employer]'s drug information does not endorse drugs, diagnose patients or recommend therapy. [employer] drug information is an informational resource designed [...] effective or appropriate for any given patient. [employer] does not assume any responsibility for any aspect of healthcare administered with the aid of information [facility] provides. The information contained herein is not intended to cover all possible uses, directions, precautions, warnings, drug interactions, allergic reactions, or adverse effects. If you have questions about the drugs you are taking, check with your doctor, nurse or pharmacist. Copyright 8469-2078 [employer]. Version: 13.02. Revision Date: 03/29/2018. tramadol (TRAM [...] extended-release form of this medicine is for czavpx-sfz-lgcld treatment of pain. This form of tramadol [...] against the law. Stop taking all other xgkrok-rhp-bsnlk narcotic pain medications when you start taking [...] may report side effects to FDA at 4-648-GQR-2510. What other drugs will affect tramadol? You [...] may affect tramadol. This includes prescription and lpto-yha-zljekxx medicines, vitamins, and herbal products. Not all [...] to ensure that the information provided by [employer]. ('Multum') is accurate, up-to-date, and complete, but no guarantee is made to that effect. Drug information contained herein may be time sensitive. Perfect [employer] information has been compiled for use by healthcare practitioners and consumers in the [place] and therefore [employer] does not warrant that uses outside of the [place] are appropriate, unless specifically indicated otherwise. [employer]One's drug information does not endorse drugs, diagnose patients or recommend therapy. [facility] drug information is an informational resource designed [...] effective or appropriate for any given patient. [facility] does not assume any responsibility for any aspect of healthcare administered with the aid of information [facility] provides. The information contained herein is not intended to cover all possible uses, directions, precautions, warnings, drug interactions, allergic reactions, or adverse effects. If you have questions about the drugs you are taking, check with your doctor, nurse or pharmacist. Copyright 7527-4444 [facility] Systems[employer]. Version: 18.02. Revision Date: 03/29/2018. CIGARETTE SMOKING: The facts are clear, cigarette smoking will shorten your life. Smoking can cause many illnesses along the way. As a healthcare provider, we recommend that you stop smoking. Assistance with quitting is available by contacting 1-993-XUAP-NOW. This is a free resource providing counseling, [...] Be sure to sign up for the [employer] patient portal, which gives you 22/11 access to your medical information ??? including these discharge instructions ??? using your computer, smartphone, or tablet. Just go to [employer] to get started. Questions? Call . [facility] would like to thank you for allowing us to assist you with your healthcare needs. MACI Benjamin RITA MOR, (or canvas products sales representative) have received the above patient education materials/instructions and have verbalized understanding: Patient Signature _ Date/Time Patient Skating Carhop Signature (if needed) Date/Time Clinician/Hospital Skating Carhop Signature (if needed) Date/Time documented in this encounter Plan of Treatment Not on file documented as of this encounter Visit Diagnoses Not on filedocumented in this encounter
--- OUTSIDE RECORDS SUMMARY | 2025-04-22 14:35 | XMS_ITS | Clinical Summary ---
Author Organization [facility] Address [address] [place] [address] Care Team Providers Care Shower Screen Installer Name Role Phone Haroldo Key MD Primary Care Provider [phone] Allergies Active Allergy Reactions Criticality Noted Date Comments Latex Unknown - Patient states they do not know rxn details Low 11/25/2016 Rash Penicillins Rash,Itching Medium 03/08/2017 Mild Reaction Sulfa Drugs Rash,Unknown - Patient states they do not know rxn details Low 11/25/2016 Tetanus Toxoid-Containing Vaccines Unknown - Patient states they do not know rxn details Low 11/25/2016 Local swelling and fever Medications * This document contains information received from the source organization and may not represent a complete record from that organization. atorvastatin (Lipitor) 40 MG tablet Take 1 tablet (40 mg) by mouth 1 (one) time each day. 7 Active potassium chloride CR (Klor-Con M20) 20 MEQ ER tablet Take 2 tablets (40 mEq) by mouth daily. 5 Active pantoprazole (Protonix) 40 MG EC tablet Take 1 tablet (40 mg) by mouth in the morning and 1 tablet (40 mg) before bedtime. 5 Active sertraline (Zoloft) 100 MG tablet Take [...] and 1 tablet before bedtime. 180 tablet 5 Active mirtazapine (Remeron) 7.5 MG tablet 5 Active magnesium oxide (Mag-Ox) 400 (240 Mg) MG tablet 5 Active loperamide (Imodium) 2 MG capsule 5 Active lactulose (Chronulac) 10 GM/15ML oral solution 5 Active Lantus SoloStar 100 UNIT/ML injection pen 5 Active busPIRone (Buspar) 5 MG tablet 5 Active Multiple Vitamins-Minera ls (CEROVITE SENIOR PO) Take by mouth. Acti ve Skin Protectants, Misc. (eucerin) cream Apply 1 Application topically as needed for dry skin. Active Cranberry 500 MG capsule Take by mouth. Acti ve estradiol (Estrace) 0.1 MG/GM vaginal cream Insert 2 g into the vagina daily. Active Active Problems No known active problems Resolved Problems Problem Noted Date Diagnosed Date Resolved Date Acute encephalopathy 07/23/202401/20/ 025 Encounters Date Type Department Care Team Description 02/27/2025 1:30 PM EDT Office Visit [place] [facility] [address], [address] [place] [address] Lucila Johnson APRN Witnessed seizure-like activity (CMS/HCC) (Primary Dx) 02/27/2025 Travel from Last 3 Months Immunizations Immunization [...] 07/25/2024 How often do you attend [facility] or yarsanism services? Never 07/25/2024 Do you belong to any clubs o r organizations such as restorationist groups, unions, fraternal or athletic groups, or [...] more drinks on one occasion? Never 07/25/2024 [facility] - [...] any time in the past 12 m [facility], were you homeless or living in a chcf (including now)? No 07/25/2024 Utilities Answer Date [...] Pulse 78 02/27/2025 1:50 PM EDT Temperature 36.3 C (97.3 F) 07/27/2024 7:49 AM EDT Respiratory Rate 28 07/26/2024 6:45 PM EDT Oxygen Saturation 99% 02/27/2025 1:50 PM EDT Inhaled Oxygen Concentration - - Weight 61.1 kg (134 lb 11.2 oz) 07/23/2024 3:31 AM EDT Height 152.4 cm (5') 07/27/2024 8:00 AM EDT Body Mass Index 26.31 07/23/2024 3:31 AM EDT Plan of Treatment Upcoming Encounters Date Type Department Care Team (Late st Contact Info) Description 06/04/2025 1:30 PM EST Office Visit [place] [facility] [address] [place] [address] BellawendyLucila mcdaniel, CABLE TOWER OPERATOR [address] [place] [address] Health Maintenance Due Date Last Done Comments [facility]-Bone Density Scan 1945 [facility]-Depression Screening 1945 [facility]-Medicare Annual Wellness (AWV) 1945 [facility]-Infant/Child/Adol SDOH Screenings 1945 Diabetes: Dental Exam 1956 [facility]-Pneumococcal Vaccine: 50 + Years (1 of 2 - PCV) 1965 [facility]-Zoster Vaccines (1 of 2) 1996 [facility]-RSV Vaccine: 60+ Years o r (1 - 1-dose 75+ series) 2021 [id number] Vaccine (1 - 2024- season) 2024 [facility]-Influenza Vaccine (#1) 2024 [facility]-Diabetes: Hemoglobin A1C 01/20/2025 07/23/2024 [facility]- SDOH Screenings 01/25/2025 [facility]-Adult SDOH Screenings 01/25/2025 07/25/2024 [facility]-DTaP,Tdap,and Td Vaccine s (2 - Td or Tdap) 12/05/2028 12/05/2018 [facility]-Hepatitis C Screening Completed 07/23/2024 [facility]-Obesity Intervention Completed 025, 07/23/2024 HPV Vaccines (No Doses Required) Completed [facility]-HIB Vaccines Aged Out No longer e [...] 5.7(H) <5.7 % 07/23/2024 8:45 AM EDT [facility] Blood Venous blood specimen / Unknown Venipuncture / Unknown 07/23/2024 4:28 AM EDT 07/23/2024 4:31 AM EDT Narrative [facility] - 07/23/2024 8:45 AM EDT HA1C Interpretive Data: Diagnosis of Diabetes: Diabetic > or = 6.5% Pre-diabetic 5.7 to 6.4% Non-diabetic < or = 5.6% Glycemic Targets for Type I and Type II Diabetics: Non- Adults <7.0% Adults <6.0% Children and Adolescents <7.5% Source: [place] Diabetes Association. Standards of medical care in diabetes,2017. Diabetes Care.2017:40 (suppl 1):S1-S135. HbA1c assay performed by an ion-exchange chromatography method that is certified traceable to the DCCT. us Timoteo Zuluaga MD LAB BLOOD ORDERABLES Final Re sult [facility] [address] [place] [address] * Hepatitis C Antibody - ED (07/23/2024 4:22 AM EDT) Hepatitis C Antibody Negative Negative 07/23/2024 5:56 AM EDT [facility] Blood Venous blood specimen / Unknown Venipuncture / Unknown 07/23/2024 4:22 AM EDT 07/23/2024 4:32 AM EDT us Timoteo Zuluaga MD LAB BLOOD ORDERABLES Final Re sult [facility] [address] [place] [address] from Last 3 Months or Most Recently Relevant to Health Maintenance Insurance [facility] [place] [address] Advance Directives Documents on File Type Date Recorded Patient Assistant Offset Press Operator Expl anation Advance Directives and Livin g Will 07/28/2024 12:52 PM * DNR/DNI (Latest Code Status on File) Date Activated Date Inactivated Comments 07/23/2024 8:59 AM 07/27/2024 2:32 PM Question Answer Comments DNR determined on/before admission date? Yes Care Teams Shower Screen Installer Relationship Specialty Start Date End Date Haroldo Key MD [address] [facility] [place] [address] PCP - General 09/12/20
--- OUTSIDE RECORDS SUMMARY | 2025-04-22 14:35 | XMS_ITS | Encounter Summary ---
Author Organization [employer] ([place], [place], [place], [place], [place]) Address [address] [place] [address] Care Team Providers Care Pre Owned Sales Consultant Name Role Phone Unavailable Primary Care Provider Unavailabl e Encounter Details Date Type Department Care Team (Late st Contact Info) Description 07/11/2018 Transcribed Document [facility] Radiology [address] [place] [address] Provider, Layla Acosta MD [...] Ordered By: FREDERIC ADAMS MD-ORT 07/11/2018 18:24 OT Treatment Instructions Ordered By: [...] : Supervision or set-up Toileting Device : [id number] commode Toilet Transfer Assist Level : Supervision or set-up Toilet Transfer Device : Belt, gait, Walker, rolling, Tgenn-lg-ksf commode JACK LUCIO OTR/Carolyn 07/12/2018 11:48 EDT [...] OT Treatment/Plan Not Established : see OT chidi Plan of Care Comment, OT : see [...] Treatment : OT eval only. JACK LUCIO OTR/L - 07/12/2018 11:48 EDT Pain Assessment Pain Scaled Used : 0-10 Pain scale Pain Score Pre-Intervention : 4 Pain Score During-Intervention : 4 Pain Score Post-Intervention. : 4 Location : Knee, right Pain Comment : nurse aware JACK LUCIO OTR/L - 07/12/2018 11:48 EDT Image 1 - [...]
--- OUTSIDE RECORDS SUMMARY | 2025-04-22 14:35 | XMS_ITS | Encounter Summary ---
Author Organization [employer] ([place], [place], [place], [place], [place]) Address [address] [place] [address] Care Team Providers Care Dean Of Student Services Name Role Phone Unavailable Primary Care Provider Unavailabl e Encounter Details Date Type Department Care Team (Late st Contact Info) Description 07/13/2018 Transcribed Document [facility] Radiology [address] [place] [address] Provider, Layla Acosta MD Social [...] 9. Hyperlipidemia. DISCHARGE INSTRUCTIONS: Diet: According to [place] Diabetic Association. 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 3. Diabetes mellitus. Resume home medication. [...]
--- OUTSIDE RECORDS SUMMARY | 2025-04-22 14:35 | XMS_ITS | Referral Summary ---
Author Organization [employer] ([place], [place], [place], [place], [place]) Address [address] [place] [address] Care Team Providers Care Digital Marketing Assistant Name Role Phone Unavailable Primary Care [...]
--- OUTSIDE RECORDS SUMMARY | 2025-04-22 14:35 | XMS_ITS | Clinical Summary ---
Author Organization [facility] Address [address] [place] [address] Care Team Providers Care Video Game Developer Name Role Phone Haroldo Key MD Primary [...] (12/17/2022): Added automatically from request for surgery [id number] Carotid stenosis, asymptomatic, right 12/17/2022 Overview (12/17/2022): Added automatically from request for surgery [id number] Hyperkalemia 02/05/2017 Type 2 diabetes mellitus wit h complication, without long-term current use of insulin 02/04/2017 Essential hypertension 02/04/2017 Tobacco abuse 02/04/2017 Left-sided carotid artery disease 01/11/2017 Overview (01/11/2017): Added automatically from request for surgery [id number] Peripheral vascular disease 01/02/2017 Resolved Problems Problem [...] Date Last Done Comments DXA SCAN 1945 COVID-19 Vaccine (#1) 08/30/1950 DIABETIC EYE EXAM 1956 DIABETIC FOOT EXAM [...] - Adults (1 - 1-dose 75+ series) 04/30/202 2 INFLUENZA VACCINE 11/30/2024 Medical Devices Implanted Type Area Clipping Marker Device Identifier Shelf Expiration Date Model / Serial / Lot Intraoccular Lenses Implant Right Hip Orif Hardware Implant [facility] 1x6cm - [id number] Implanted:Qty: 1 on 02/04/2017 by Maicol Burger MD at [facility] Implant Left: Carotid SYN[employer]IS [id number] / / [id number] Procedures Procedure Name Priority Date/Time Associated Diagnosis Comments HEMOGLOBIN A1C Routine 02/03/2017 1:39 PM EDT Stenosis of left carotid artery from Last 3 Months or Most Recently Relevant to Health Maintenance Results * (ABNORMAL) Hemoglobin A1c (02/03/2017 1:39 PM EDT) Hemoglobin A1C 6.60(H) 4.80 - 5.60 % 02/03/2017 2:28 PM EDT [facility] Blood Venipuncture / Unknown 02/03/2017 1:39 PM EDT 02/03/2017 1:51 PM EDT Narrative [facility] - 02/03/2017 2:28 PM EDT The [place] Diabetes Association recommends maintenance of Hemoglobin A1C at 7.0% or lower. Goals for Hemoglobin A1C reduction may need to be modified if hypoglycemia is a problem. us Haroldo AGUILAR LAB BLOOD ORDERABLES Final R esult [facility]
[address] [id number], from Last 3 Months or Most Recently Relevant to Health Maintenance Insurance MEDICARE A & B [facility] SUP Advance Directives Documents on File Type Date Recorded Patient Technology Sales Specialist Expl anation LIVING WILL - SCAN 10/20/2021 5:59 AM FRANCHESCA NG WILL DIRECTIVE 02/04/17 LIVING WILL - SCAN 10/19/2021 8:51 AM FRANCHESCA NG WILL DIRECTIVE 02/04/2017 * Full Code (Latest Code Status on File) Date Activated Date Inactivated Comments 02/04/2017 9:45 AM 02/05/2017 7:28 PM Care Teams Video Game Developer Relationship Specialty Start Date End Date Haroldo Key MD PCP - General Family Medicine 11/11/16
--- OUTSIDE RECORDS SUMMARY | 2025-04-22 14:35 | XMS_ITS | Encounter Summary ---
Author Organization [employer] ([place], [place], [place], [place], [place]) Address [address] [place] [address] Care Team Providers Care Machine Steak Tenderizer Name Role Phone Unavailable Primary Care Provider Unavailabl e Encounter Details Date Type Department Care Team (Late st Contact Info) Description 06/30/[address] [facility] Radiology [address] [place] [address] Provider, Layla Acosta MD Social [...] Source : Stated Height Entry Format : [place] Height, Feet : 5 ft(Converted to: 152 cm, 60 Inch) Height, Inches : 0 Inch(Converted to: 0 ft 0 Inch, 0.00 cm) Clinical Height : 152.4 cm Weight Source : Standing scale Weight Entry Format : [place] Clinical Dosing Weight : 79.55 kg Weight, Pounds : 175 lb Body Surface Area (BSA) : 1.77 m2 Body Mass Index : 34.3 kg/m2 (HI) [place] Body Weight : 45 kg KENNY BECERRA [...] #2 Relationship : - Primary Language : Citizen [place] Preferred Communication Mode : Verbal Communication Barrier [...]
--- OUTSIDE RECORDS SUMMARY | 2025-04-22 14:35 | XMS_ITS | Encounter Summary ---
Author Organization [employer] ([place], [place], [place], [place], [place]) Address [address] [place] [address] Care Team Providers Care Recoating Machine Operator Name Role Phone Unavailable Primary Care Provider Unavailabl e Encounter Details Date Type Department Care Team (Late st Contact Info) Description 07/11/2018 Transcribed Document [facility] Radiology [address] [place] [address] Provider, Layla Acosta MD Social [...] 20:31 EDT Electronically signed by Jorge Luis [facility] Conversion Manager Automotive Cerner at 09/22/2022 11:00 AM CDT documented in this encounter Plan of Treatment Not on file documented as of this encounter Visit Diagnoses Not on filedocumented in this encounter
--- OUTSIDE RECORDS SUMMARY | 2025-04-22 14:35 | XMS_ITS | Encounter Summary ---
Author Organization [employer] ([place], [place], [place], [place], [place]) Address [address] [place] [address] Care Team Providers Care Cryogenics Repairer Name Role Phone Unavailable Primary Care Provider Unavailabl e Encounter Details Date Type Department Care Team (Late st Contact Info) Description 07/13/2018 Transcribed Document [facility] Radiology [address] [place] [address] ProviderLayla MD Social History Tobacco [...] Miscellaneous Notes * Cerner Conversion Note - [facility] Karla Rojo MD - 07/13/2018 4:00 AM [...]
--- OUTSIDE RECORDS SUMMARY | 2025-04-22 14:35 | XMS_ITS | Encounter Summary ---
Author Organization [employer] ([place], [place], [place], [place], [place]) Address [address] [place] [address] Care Team Providers Care Medical Information Officer Name Role Phone Unavailable Primary Care Provider Unavailabl e Encounter Details Date Type Department Care Team (Late st Contact Info) Description 06/27/[address] [facility] Radiology [address] [place] [address] ProviderLayla MD Social History Tobacco [...] [facility] Karla Rojo MD - 06/27/2018 8:41 PM EST Orthopedic Nurse Navigator Entered On: 07/10/2018 6:52 EDT Performed On: 06/27/2018 19:41 EST by Carlyn Temple figurine maker Nurse Navigator Assessment Attended Joint Academy : Yes Joint AcademyType : Online Joint Academy Date : 06/27/2018 EST Carlyn Temple RN - 07/10/2018 6:52 EDT Electronically signed by Jorge Luis [facility] Conversion Marble Setter Helper Cerner at 09/22/2022 11:00 AM CDT documented in this encounter Plan of Treatment Not on file documented as of this encounter Visit Diagnoses Not on filedocumented in this encounter
--- OUTSIDE RECORDS SUMMARY | 2025-04-22 14:35 | XMS_ITS | Encounter Summary ---
Author Organization [employer] ([place], [place], [place], [place], [place]) Address [address] [place] [address] Care Team Providers Care Film Recordist Name Role Phone Unavailable Primary Care Provider Unavailabl e Encounter Details Date Type Department Care Team (Late st Contact Info) Description 07/13/2018 Transcribed Document [facility] Radiology [address] [place] [address] Provider, Layla Acosta MD Social [...] Barley. Bulgur wheat. Millet. Bran muffins. Popcorn. Kirby wafer crackers. ?? Vegetables Sweet potatoes. Spinach. Kale. Artichokes. Cabbage. Broccoli. Green peas. Carrots. Squash. ?? Fruits Berries. Pears. Apples. Oranges. Avocados. Prunes and raisins. Dried figs. ?? Meats and Other Protein Sources [place], kidney, hoff, and soy beans. Split peas. [...] alphonso has 11 g of protein. ?? Ogle seeds ??? 1 oz has 5.5 g [...] floor. ?? Place frequently used items in spul-ij-veipi places ?? Keep electrical cables out of [...] ? Using the bathroom. ? Using household virtual classroom manager or toxic chemicals. ? Touching or [...]
--- OUTSIDE RECORDS SUMMARY | 2025-04-22 14:35 | XMS_ITS | Encounter Summary ---
Author Organization [employer] ([place], [place], [place], [place], [place]) Address [address] [place] [address] Care Team Providers Care Weight Checker Name Role Phone Unavailable Primary Care Provider Unavailabl e Encounter Details Date Type Department Care Team (Late st Contact Info) Description 07/11/2018 Transcribed Document [facility] Radiology [address] [place] [address] ProviderLayla MD Social History Tobacco [...] Cerner Conversion Note - [facility] Karla Rojo MD - 07/11/2018 11:11 PM EDT Education-Diabetes Topics [...]
--- OUTSIDE RECORDS SUMMARY | 2025-04-22 14:35 | XMS_ITS | Encounter Summary ---
Author Organization [employer] ([place], [place], [place], [place], [place]) Address [address] [place] [address] Care Team Providers Care Project Specialist Name Role Phone Unavailable Primary Care Provider Unavailabl e Encounter Details Date Type Department Care Team (Late st Contact Info) Description 07/13/2018 Transcribed Document [facility] Radiology [address] [place] [address] Provider, Layla Acosta MD Social [...] On: 07/13/2018 10:08 EDT by Nany Walker, Hydrography Teacher Lead General Information, PT Visit Type, PT [...] within reach, Other: ICE, SCUDS. Nany Walker Hydrography Teacher Lead - 07/13/2018 13:09 EDT RN/PCT Informed Comment : KAHLIL arreola'ramu PT. Treatment End Time : 07/13/2018 10:08 [...] Tx Plan/Goals Established w Patient : Yes Nany Walker Hydrography Teacher Lead - 07/13/2018 12:22 EDT Manager Assurance Goals Other PT LTG Grid Goal #1 Goal #2 Other : Patient will participate in ther ex training for improved strength with gait and transfers. Patient will complete 2 steps with left rail and min assist for safe access to home at discharge. Date to Meet : 07/15/2018 EDT 07/15/2018 EDT Goal Status : Goal met Goal met Nany Walker Hydrography Teacher Lead - 07/13/2018 12:22 EDT Nany Walker Hydrography Teacher Lead - 07/13/2018 12:22 EDT Treatment Note Subjective Comment : Pt agreeable to therapy. Nany Walker Hydrography Teacher Lead - 07/13/2018 13:09 EDT Patient's Response to Treatment : Good. Nany Walker Hydrography Teacher Lead - 07/13/2018 12:22 EDT Additional Objective [...] therex, 13min gait, 10min theract Nany Walker Hydrography Teacher Lead - 07/13/2018 13:09 EDT Assessment : Pt met goal #1, #2. Plan for Treatment : Home today with family assistance and HHPT. Nany Walker Hydrography Teacher Lead - 07/13/2018 12:22 EDT Pain Assessment Pain Scaled Used : 0-10 Pain scale Pain Score Pre-Intervention : 4 Pain Score During-Intervention : 8 Pain Score Post-Intervention. : 6 Pain Comment : 10/09 pain, nurse aware. Nany Walker Hydrography Teacher Lead - 07/13/2018 12:22 EDT Image 1 - Images currently included in the form version of this document have not been included in the text rendition version of the form. [employer] PT Charges PT Therap. Exercise 15 min : 3 PT Ther Activities Ea 15 Min : 1 Gait Training Each 15 Min : 1 Nany Walker Hydrography Teacher Lead - 07/13/2018 12:22 EDT documented in this encounter Plan of Treatment Not on file documented as of this encounter Visit Diagnoses Not on filedocumented in this encounter
--- OUTSIDE RECORDS SUMMARY | 2025-04-22 14:35 | XMS_ITS | Encounter Summary ---
Author Organization [employer] ([place], [place], [place], [place], [place]) Address [address] [place] [address] Care Team Providers Care Fourth Officer Name Role Phone Unavailable Primary Care Provider Unavailabl e Encounter Details Date Type Department Care Team (Late st Contact Info) Description 07/11/2018 Transcribed Document [facility] Radiology [address] [place] [address] Provider, Layla Acosta MD Social [...] Miscellaneous Notes * Cerner Conversion Note - [facility] Karla Rojo MD - 07/11/2018 7:23 PM EDT Care Management Assessment/Plan Entered On: 07/12/2018 18:02 EDT Performed On: 07/12/2018 18:00 EDT by Jessica Cote, Case Management-Wire Tester Care Management Note Care Management Note : pt admitted for tka, pt has her walker, pt has cpm in room, pt plans home with [facility] as she used this agency int he past. pt stated she will have assistance at home. referral sent via [facility] [employer] [facility] ([facility]: [place]) Documentation Status Complete : Yes Jessica Cote Case Management-Wire Tester - 07/12/2018 18:00 EDT Discharge Planning Details Persons Assisting Patient at Home : Spouse Jessica Cote Case Management-Wire Tester - 07/12/2018 18:00 EDT Info/List/Choices Provided Patient Offered Choice/Affiliations Explained : Yes List/Info Provided Pt/Fam/Support Person : Home health Jessica Cote, Case Management-Wire Tester - 07/12/2018 18:00 EDT Final Discharge Disposition Note-CM Discharge To Care Management : Home Health Services (Related/SOC within 3 days)-06 Name of Receiving Facility/Provider-CM : [facility] for cpm Jessica Cote, Case Management-Wire Tester - 07/12/2018 18:00 EDT documented in this encounter Plan of Treatment Not on file documented as of this encounter Visit Diagnoses Not on filedocumented in this encounter
--- OUTSIDE RECORDS SUMMARY | 2025-04-22 14:35 | XMS_ITS | Encounter Summary ---
Author Organization [employer] ([place], [place], [place], [place], [place]) Address [address] [place] [address] Care Team Providers Care Computer Help Desk Specialist Name Role Phone Unavailable Primary Care Provider Unavailabl e Encounter Details Date Type Department Care Team (Late st Contact Info) Description 07/18/2018 Transcribed Document [facility] Radiology [address] [place] [address] Provider, Layla Acosta MD Social [...] [ ] Surgical procedure/ Evaluation [ ] CDS/Transfer Station Attendant Signature: Edgar Horne Phone #: _[phone]__ Date/Time: _07/18/2018 11:53 AM_ This is a permanent part of the Medical Record Electronically signed by Layla Kang Conversion Bus And Sys Integration Senior Manager Cerner at 09/22/2022 11:00 AM CDT documented in this encounter Plan of Treatment Not on file documented as of this encounter Visit Diagnoses Not on filedocumented in this encounter
--- OUTSIDE RECORDS SUMMARY | 2025-04-22 14:35 | XMS_ITS | Encounter Summary ---
Author Organization [employer] ([place], [place], [place], [place], [place]) Address [address] [place] [address] Care Team Providers Care Carbon Capture Power Plant Operator Name Role Phone Unavailable Primary Care Provider Unavailabl e Encounter Details Date Type Department Care Team (Late st Contact Info) Description 07/11/2018 Transcribed Document [facility] Radiology [address] [place] [address] Provider, Layla Acosta MD [...] [facility] Karla Rojo MD - 07/11/2018 3:47 PM EDT [facility] Main OR IntraOp Summary Primary Physician: FREDERIC ADAMS MD-ORT Finalized Date/Time: 07/11/18 16:06:00 Pt. Name: FLOR LUX JORDEN Royal/Sex: 1945 Female Med Rec #: [id number] Physician: FREDERIC ADAMS MD-ORT Financial #: [id number] Pt. Type: O Room/Bed: [facility]/ Admit/Disch: 07/11/18 04:54:00 - Institution: [facility] IntraOp Case Attendance Entry 1 Entry 2 Entry 3 Case Attendee FREDERIC ADAMS NAPIER, CYNTHIA A, CRNA Bland, Jordyn A, RN MD-ORT Role Performed Surgeon/Proceduralist, RABBLER/Nurse Boiler Installer Final Cigar And Box Examiner, First First Time In 07/11/18 14:44:00 07/11/18 14:15:00 07/11/18 14:15:00 Time Out 07/11/18 16:01:00 07/11/18 16:01:00 07/11/18 16:01:00 Procedure Knee Total Joint Knee Total Joint Knee Total Joint Replacement Replacement Replacement Other Attendee Superficial Wound Closed By: Last Modified By: Za Fonseca RN Bland, Jordyn A, RN Bland, Jordyn A, RN 07/11/18 16:05:53 07/11/18 16:05:53 07/11/18 16:05:53 Entry 4 Entry 5 Entry 6 Case Attendee RUBEN NUNEZ Letitia, ST Combs, Leslie, Knife Sharpener Role Performed Scrub, First Scrub, Second Assistive Personnel Time In 07/11/18 14:15:00 07/11/18 14:15:00 07/11/18 14:15:00 Time Out 07/11/18 16:01:00 07/11/18 16:01:00 07/11/18 14:57:00 Procedure Knee Total Joint Knee Total Joint Knee Total Joint Replacement Replacement Replacement Other Attendee Superficial Wound Closed By: Last Modified By: Za Fonseca RN Bland, Jordyn A, RN Bland, Jordyn A, RN 07/11/18 16:05:53 07/11/18 16:05:53 07/11/18 16:05:53 Entry 7 Entry 8 Entry 9 Case Attendee RAMOS ALBA PAC OTHER, ATTENDEE ONUR REYES MD Role Performed Physician baking assistant Vendor Anesthesiologist Time In 07/11/18 14:55:00 07/11/18 14:15:00 07/11/18 15:00:00 Time Out 07/11/18 16:01:00 07/11/18 16:01:00 07/11/18 15:40:00 Procedure Knee Total Joint Knee Total Joint Knee Total Joint Replacement Replacement Replacement Other Attendee MANOLO MIRANDA Superficial Wound Closed By: Last Modified By: Za Fonseca RN Bland, Jordyn A, RN Bland, Jordyn A, RN 07/11/18 16:05:53 07/11/18 16:05:53 07/11/18 16:05:53 Entry 10 Entry 11 Case Attendee Soni Jose, BREEZY ZHENG, RABBLER Role Performed Final Cigar And Box Examiner, First RABBLER/Nurse Boiler Installer Time In 07/11/18 15:10:00 07/11/18 15:39:00 Time Out 07/11/18 15:36:00 07/11/18 16:01:00 Procedure Knee Total Joint Knee Total Joint Replacement Replacement Other Attendee Superficial Wound Closed By: Last Modified By: Za Fonseca RN Bland, Jordyn A, RN 07/11/18 16:05:53 07/11/18 16:05:53 [facility] IntraOp Case Attendance Audit 07/11/18 16:05:53 Director Customer: MICHAEL Modifier: MICHAEL 1 <+> Time Out [...] Procedure Knee Total Joint Replacement 07/11/18 15:54:27 Director Customer: MICHAEL Modifier: MICHAEL 9 <+> Time Out 9 <*> Procedure Knee Total Joint Replacement <+> 11 Case Attendee <+> 11 Role Performed <+> 11 Time In <+> 11 Procedure 07/11/18 15:36:52 Director Customer: MICHAEL Modifier: MICHAEL 10 <+> Time Out 10 <*> Procedure Knee Total Joint Replacement 07/11/18 15:18:09 Director Customer: MICHAEL Modifier: MICHAEL <+> 10 Case Attendee <+> 10 Role Performed <+> 10 Time In <+> 10 Procedure 07/11/18 15:02:08 Director Customer: MICHAEL Modifier: JORDYNBLAND 1 <*> Time In 07/11/18 14:15:00 1 <*> Procedure Knee Total Joint Replacement 07/11/18 15:01:47 Director Customer: MICHAEL Modifier: MICHAEL <+> 9 Case Attendee <+> 9 Role Performed <+> 9 Time In <+> 9 Procedure 07/11/18 14:57:15 Director Customer: MICHAEL Modifier: MICHAEL 1 <*> Procedure Knee [...] Stop Time 07/11/18 15:58:00 Last Modified By: Za Fonseca RN 07/11/18 16:05:47 [facility] IntraOp Case Times Audit 07/11/18 16:05:47 Director Customer: MICHAEL Modifier: MICHAEL <+> 1 Out Room Time <+> 1 Stop Time 07/11/18 15:58:06 Director Customer: MICHAEL Modifier: MICHAEL 1 <*> Stop Time 07/11/18 15:59:00 07/11/18 15:57:03 Director Customer: MICHAEL Modifier: HAFSAAND <+> 1 Stop Time 07/11/18 14:47:11 Director Customer: MICHAEL Modifier: MICHAEL <+> 1 Start Time [facility] IntraOp Cautery Entry 1 ESU Identification Cautery Type Monopolar ESU ID Number [id number] ID Type Hospital Number Cautery Settings Cut Setting 70 Coag Setting 70 ESU Grounding Pad Ground Pad Type Adult Grounding Pad Site Left Upper Abdomen Grounding Pad Za Fonseca RN Applied By Grounding Pad Site Warm, dry and intact Skin Condition Before Cautery Grounding Pad Site Unchanged, Warm, dry Skin Condition and intact After Cautery Last Modified By: Za Fonseca RN 07/11/18 14:39:02 S[facility] IntraOp Communication Entry 1 Communication To Family/Significant other Comment START Communication By Za Fonseca RN Date and Time 07/11/18 14:47:00 Last Modified By: Za Fonseca RN 07/11/18 14:47:25 S[facility] IntraOp Counts [...] NUNEZ BENJAMIN P (Scrub) Count Performed By Za Fonseca RN Shannon, Karen, RN (RN) Last Modified By: Za Fonseca RN Bland, Jordyn A, RN 07/11/18 14:39:12 07/11/18 15:36:24 S[facility] IntraOp Counts Verification Audit 07/11/18 15:36:24 Director Customer: MICHAEL Modifier: MICHAEL <+> 2 Procedure <+> [...] Cristy Bee ST (Scrub) Count Performed By aZ Fonseca RN (RN) Last Modified By: Za Fonseca RN 07/11/18 15:54:33 S[facility] IntraOp Counts Final Audit 07/11/18 15:54:33 Director Customer: MICHAEL Modifier: MICHAEL 1 <*> Procedure Knee Total Joint Replacement 1 <+> Count Performed By (Scrub) E IntraOp Cultures and Spec Summary Entry 1 Cultrures and Specimens Specimen Ordered: Yes Specimens Types Pathology Specimen(s) Labeled Pathology and Sent to Last Modified By: Za Fonseca RN 07/11/18 14:39:19 SJE IntraOp Departure from OR Entry 1 Integumentary Assessment Integumentary WDL Assessment WDL Transfer/Handoff Transfer to PACU Phase I Handoff Method Bedside/Face to face Post-op Transport Bed (including Via specialty) Patient Transport STEWART SAWYER, Accompanied by [place] REYNAGA Jordyn A, RN Last Modified By: Za Fonseca RN 07/11/18 15:18:23 [facility] IntraOp Drains and Tubes Entry 1 Device Type Hemovac Size 1/8 Drain/Tube Activity Inserted Device Location RIGHT KNEE Method of Drainage Compression Last Modified By: Za Fonseca RN 07/11/18 14:39:29 S[facility] IntraOp Dressing and Packing Entry 1 Type Dressing Location RIGHT KNEE Wound Dressing Item Sukhdeep, 4x4's, Xeroform, Webril, Steristrip Supplemental Limb immobilizer, Cold Applications pack Applied By RAMOS ALBA PAC Last Modified By: Za Fonseca RN 07/11/18 14:39:36 SJE IntraOp Fire Risk Assessment Entry 1 Fire Info Surgical Site or 0- No Incision Above the Xyphoid Open O2 Source 0- No (Mask or Cannula) Available Ignition 1- Yes (ESU, Laser, Light Source) Fire Risk 1 Assessment Score Fire Score Fire Risk Yes Assessment Complete Fire Risk Za Fonseca RN Assessment Verified By Fire Risk 07/11/18 14:12:00 Assessment Verified Date/Time Fire Risk Standard Fire Yes Safety Precautions Followed Last Modified By: Za Fonseca RN 07/11/18 14:39:49 SJE IntraOp General Case Marine Equipment Sales Engineer 1 Case Information OR OR 05 [facility] Case Level 1 Room Verified Yes Wound Class I - Clean Specialty SN Orthopedic Anesthesia Type General ASA Class 3 Diagnosis Preop Diagnosis DJD RIGHT KNEE Postop Same As Preop No Postop Diagnosis DICTATED BY MD Last Modified By: Za Fonseca RN 07/11/18 14:40:06 SJE IntraOp Implant Log Entry 1 Entry 2 Entry 3 Type Implant (Synthetic) Implant (Synthetic) Implant (Synthetic) Implant Log Implant Type Bone Cement Hardware Hardware Tissue Implant Type Implant CEMENT BONE COBALT HV COMP TIB BRG VANGRD TY TIB I-BEAM FIX Identification -[id number] [id number] Description Implant Quantity 2 1 1 Implant Site RIGHT KNEE RIGHT KNEE RIGHT KNEE Implant Identification Model Number Implant Identification Serial Number Implant [id number] Identification Lot Number Implant Dj Surg:Encore Biomet Biomet Identification Med:Edmund Lime Sludge Kiln Operator Name: Implant 600-15-000 [id number] Identification Catalog Number Implant Size Implant Has an Yes Yes Yes Expiration Date Implant Expiration 09/15/19 05/16/23 03/06/28 Date Wasted Radioactive Material Time Implanted Tissue Implant Continue for Tissue Implant Documentation Tissue Identification Number Graft Prep Per Lime Sludge Kiln Operator Instructions: Tissue Preparation Method: Reconstitution Solution: Reconstitution Solution Lot Number Reconstitution Solution Expiration Date: Thawing Solution Thawing Solution Lot Number Thawing Solution Expiration Date Preparation Materials, Other Preparation Materials, Other Lot Number Preparation Materials, Other Expiration Date Tissue Prepared/Processed By Lime Sludge Kiln Operator Paperwork Completed Implant Type Comment Last Modified By: Za Fonseca RN Bland, Jordyn A, RN Bland, Jordyn A, RN 07/11/18 15:32:02 07/11/18 15:32:02 07/11/18 15:32:02 Entry 4 Entry 5 Type Implant (Synthetic) Implant (Synthetic) Implant Log Implant Type Hardware Hardware Tissue Implant Type Implant COMP FEM CR INTLOK VGRD PATELLA THIN Identification 62.5 [id number] Description Implant Quantity 1 1 Implant Site RIGHT KNEE RIGHT KNEE Implant Identification Model Number Implant Identification Serial Number Implant [id number] Identification Lot Number Implant Biomet Biomet Identification Lime Sludge Kiln Operator Name: Implant [id number] Identification Catalog Number Implant Size Implant Has an Yes Yes Expiration Date Implant Expiration 05/18/28 05/09/23 Date Wasted Radioactive Material Time Implanted Tissue Implant Continue for Tissue Implant Documentation Tissue Identification Number Graft Prep Per Lime Sludge Kiln Operator Instructions: Tissue Preparation Method: Reconstitution Solution: Reconstitution Solution Lot Number Reconstitution Solution Expiration Date: Thawing Solution Thawing Solution Lot Number Thawing Solution Expiration Date Preparation Materials, Other Preparation Materials, Other Lot Number Preparation Materials, Other Expiration Date Tissue Prepared/Processed By Lime Sludge Kiln Operator Paperwork Completed Implant Type Comment Last Modified By: Za Fonseca RN Bland, Jordyn A, RN 07/11/18 15:32:02 07/11/18 15:32:02 S[facility] IntraOp Implant Log Audit 07/11/18 15:32:02 Director Customer: MICHAEL Modifier: MICHAEL 1 <*> Implant Identification Description CEMENT BONE COBALT HV [id number] 1 <*> Implant Identification Lot Number [id number] 1 <*> Implant Identification Lime Sludge Kiln Operator Dj Surg:Encore Med:Front Royal Name: 1 <*> Implant Expiration Date 09/15/19 1 <*> Implant Site RIGHT KNEE 1 <*> Implant Quantity 2 1 <*> Implant Identification Catalog 600-15-000 Number 1 <*> Implant Type Bone Cement 1 <*> Implant Has an Expiration Date Yes 1 <*> Type Implant (Synthetic) 2 <*> Implant Identification Description COMP TIB BRG VANGRD [id number] 2 <*> Implant Identification Lime Sludge Kiln Operator Biomet Name: 2 <*> Implant Expiration Date 05/16/23 2 <*> Implant Site RIGHT KNEE 2 <*> Implant Quantity 1 2 <*> Implant Identification Catalog [id number] Number 2 <*> Implant Type Hardware 2 <*> Implant Has an Expiration Date Yes 2 <*> Type Implant (Synthetic) 3 <*> Implant Identification Description TY TIB I-BEAM FIX BIOMET [id number] 3 <*> Implant Identification Lime Sludge Kiln Operator Biomet Name: 3 <*> Implant Expiration Date 03/06/28 3 <*> Implant Site RIGHT KNEE 3 <*> Implant Quantity 1 3 <*> Implant Identification Catalog [id number] Number 3 <*> Implant Type Hardware 3 <*> Implant Has an Expiration Date Yes 3 <*> Type Implant (Synthetic) 4 <+> Implant Identification Description 4 <+> Implant Identification Lime Sludge Kiln Operator Name: 4 <+> Implant Expiration Date 4 <*> Implant Site RIGHT KNEE 4 <*> Implant Quantity 1 4 <+> Implant Identification Catalog Number 4 <*> Implant Type Hardware 4 <*> Implant Has an Expiration Date Yes 4 <*> Type Implant (Synthetic) 5 <*> Implant Identification Description COMP FEM CR INTLOK RD 62.5 [id number] 5 <+> Implant Identification Lot Number 5 <*> Implant Identification Lime Sludge Kiln Operator Biomet Name: 5 <*> Implant Expiration Date 05/18/28 5 <*> Implant Site RIGHT KNEE 5 <*> Implant Quantity 1 5 <*> Implant Identification Catalog [id number] Number 5 <*> Implant Type Hardware 5 <*> Implant Has an Expiration Date Yes 5 <*> Type Implant (Synthetic) 6 <-> Implant Identification Description PATELLA THIN [id number] 6 <-> Implant Identification Lot Number [id number] 6 <-> Implant Identification Lime Sludge Kiln Operator Biomet Name: 6 <-> Implant Expiration Date 05/09/23 6 <-> Implant Site RIGHT KNEE 6 <-> Implant Quantity 1 6 <-> Implant Identification Catalog [id number] Number 6 <-> Implant Type Hardware 6 <-> Implant Has an Expiration Date Yes 6 <-> Type Implant (Synthetic) 07/11/18 15:30:47 Director Customer: MICHAEL Modifier: JORDYNWEST <+> 2 Implant Identification Description <+> 2 Implant Identification Lime Sludge Kiln Operator Name: 07/11/18 15:29:37 Director Customer: MICHAEL Modifier: MICHAEL <+> 3 Implant Identification Description <+> 3 Implant Identification Lime Sludge Kiln Operator Name: <+> 3 Implant Expiration Date <+> 3 Implant Identification Catalog Number 6 <*> Implant Identification Description PATELLA THIN [id number] 6 <+> Implant Site 07/11/18 15:22:42 Director Customer: MICHAEL Modifier: MICHAEL <+> 5 Implant Identification Description <+> 5 Implant Identification Lime Sludge Kiln Operator Name: <+> 5 Implant Expiration Date <+> 5 Implant Identification Catalog Number 07/11/18 15:20:08 Director Customer: MICHAEL Modifier: MICHAEL <+> 6 Implant Identification Description <+> 6 Implant Identification Lot Number <+> 6 Implant Identification Lime Sludge Kiln Operator Name: <+> 6 Implant Expiration Date <+> 6 Implant Quantity <+> 6 Implant Identification Catalog Number <+> 6 Implant Type <+> 6 Implant Has an Expiration Date <+> 6 Type 07/11/18 15:16:19 Director Customer: MICHAEL Modifier: MICHAEL <+> 1 Implant Identification Description <+> 1 Implant Identification Lot Number <+> 1 Implant Identification Lime Sludge Kiln Operator Name: <+> 1 Implant Expiration Date <+> [...] IVs Arrival to OR Last Modified By: Za Fonseca RN 07/11/18 14:47:53 [facility] IntraOp Intraoperative Equipment Entry 1 Type Equipment Equipment Equipment Reina Suction System Intraop Monitoring Antiembolic Devices Antiembolic Devices Sequential compression device, knee high Antiembolic Device Left Location Scopes Photo/Video Documentation Photo No Video No Last Modified By: Za Fonseca RN 07/11/18 14:47:58 S[facility] IntraOp Medication Admin Entry 1 Entry 2 Entry 3 Medication/Irrigant TRANEXAMIC ACID hydrogen peroxide 3% - vancomycin 1Gm vial - 1000MG/10 ML [id number] Combo Med List Time Administered Route of TOPICALW/ 25ML NACL IRRIGANT TOPICAL Administration Dose Dose 1000 1 Unit of Measure mg gram Volume 10 ML BOTTLE Administered By FREDERIC ADAMS CHRISTENSEN, ANGIE DE LA GARZA CHRISTIAN, MD-ORT MD-ORT -ORT Procedure Irrigation Irrigant Volume In Irrigant Volume Out Last Modified By: Za Fonseca RN Bland, Jordyn A, RN Bland, Jordyn A, RN 07/11/18 14:48:08 07/11/18 14:48:08 07/11/18 14:48:08 Entry 4 Medication/Irrigant ANESTHETIC COCKTAIL-ANGIE Combo Med List Time Administered Route of INJECTION Administration Dose Dose Unit of Measure Volume Administered By FREDERIC ADAMS MD-ORT Procedure Irrigation Irrigant Volume In Irrigant Volume Out Last Modified By: Za Fonseca RN 07/11/18 14:48:08 SJE IntraOp Patient [...] Positioned By STEWART SAWYER CRNA, Lucretia Calvert, Knife Sharpener, Za Fonseca RN, RUBEN NUNEZ Position Verified Positioning Yes Verified by Anesthesia Positioning Yes Verified by Surgeon Last Modified By: Za Fonseca RN 07/11/18 14:48:24 SJE IntraOp Sign [...] Warming Measures Yes Taken Last Modified By: Za Fonseca RN 07/11/18 14:48:28 SJE Intra Op [...] Checklist Yes Elements Complete? RN Sign Out Za Fonseca RN Signature RN Sign Out 07/11/18 [...] related to extraneous objects Last Modified By: Za Fonseca RN 07/11/18 16:05:52 SJE Intra Op Sign Out Audit 07/11/18 16:05:52 Director Customer: MICHAEL Modifier: MICHAEL <+> 1 RN Sign Out Signature Date/Time SJE IntraOp Skin Prep Entry 1 Procedure Knee Total Joint Replacement Prescribed Yes Pre-Surgical Prep Completed Prep Area RIGHT LEG AND FOOT Intraop Prep Prep Agents DuraPrep, Alcohol Prep by Za Fonseca RN Hair Removal Methods No hair removal performed Last Modified By: Za Fonseca RN 07/11/18 14:48:39 S[facility] IntraOp Surgical Procedures Entry 1 Procedure Knee Total Joint Replacement Additional RIGHT TOTAL KNEE Procedure REPLACEMENT Description Primary Procedure Yes Primary Surgeon FREDERIC ADMAS MD-ORT Start 07/11/18 14:47:00 Stop 07/11/18 15:58:00 Anesthesia Type General Specialty SN Orthopedic Wound Class I - Clean Last Modified By: Za Fonseca RN 07/11/18 15:58:11 SJE IntraOp Surgical Procedures Audit 07/11/18 15:58:11 Director Customer: ZABLBUSHRA Modifier: JORDYNBLAND 1 <*> Procedure Knee Total Joint Replacement 1 <*> Stop 07/11/18 15:59:00 07/11/18 15:57:05 Director Customer: MICHAEL Modifier: JORDJHONNYAND <+> 1 Stop SJE IntraOp Temp Regulation Devices Entry 1 Temp Regulation Temperature Forced Air Warming Regulation Device device Temperature Upper body Regulation Site Temperature STEWART SAWYER CRNA Regulation Device Applied by Last Modified By: Za Fonseca RN 07/11/18 14:48:45 SJE IntraOp Time [...] Yes Labeled and Displayed Last Modified By: Za Fonseca RN 07/11/18 14:47:49 SJE IntraOp Tourniquet Entry 1 Type Pneumatic Setting 350 mmHg Pheumatic Yes Tourniquet Checked Per Protocol Size 34 inches Placement Thigh, right upper Skin Protection - Yes Padded Under Cuff Applied By Lucretia Calvert, Knife Sharpener Removed By RAMOS ALBA, PAC Times Start Time 07/11/18 14:46:00 Stop Time 07/11/18 15:54:00 Last Modified By: Za Fonseca RN 07/11/18 15:54:51 JN IntraOp Tourniquet Audit 07/11/18 15:54:51 Director Customer: MICHAEL Modifier: MICHAEL <+> 1 Stop Time Case Comments <None> Finalized By: Za Fonseca, RN Document Signatures Signed By: Za Fonseca RN 07/11/18 16:06 documented in this encounter Plan of Treatment Not on file documented as of this encounter Visit Diagnoses Not on filedocumented in this encounter
--- OUTSIDE RECORDS SUMMARY | 2025-04-22 14:35 | XMS_ITS | Encounter Summary ---
Author Organization [employer] ([place], [place], [place], [place], [place]) Address [address] [place] [address] Care Team Providers Care Slice Plug Cutter Operator Helper Name Role Phone Unavailable Primary Care Provider Unavailabl e Encounter Details Date Type Department Care Team (Late st Contact Info) Description 07/13/2018 Transcribed Document [facility] Radiology [address] [place] [address] Provider, Layla Acotsa MD Social [...] On: 07/13/2018 12:49 EDT by Nany Walker Boot Liner Maker Lead Discharge Summary Discharge Summary Provider Notified : Nursing, Referring provider Reason for Discharge : Discharged from hospital, All goals met Discharged to, Therapy : Home, with home health Nany Walker Boot Liner Maker Lead - 07/13/2018 12:49 EDT Discharge Summary [...] DIANNA WELSH, PT - 07/13/2018 16:09 EDT Supervisor Game [employer] Goals Other PT LTG Grid Goal #1 [...]
--- OUTSIDE RECORDS SUMMARY | 2025-04-22 14:35 | XMS_ITS | Encounter Summary ---
Author Organization [employer] ([place], [place], [place], [place], [place]) Address [address] [place] [address] Care Team Providers Care Landscape Contractor Name Role Phone Unavailable Primary Care Provider Unavailabl e Encounter Details Date Type Department Care Team (Late st Contact Info) Description 07/11/2018 Transcribed Document [facility] Radiology [address] [place] [address] Provider, Layla Acosta MD [...] Note - meryl Rojo MD - 07/11/2018 3:47 PM EDT [facility] Main OR PreOp Summary Primary Physician: FREDERIC ADAMS MD-ORT Finalized Date/Time: 07/11/18 15:05:11 Pt. Name: MACI FLOROrly Royal/Sex: 1945 Female Med Rec #: [id number] Physician: FREDERIC ADAMS MD-ORT Financial #: [id number] Pt. Type: O Room/Bed: [facility]/8 Admit/Disch: 07/11/18 04:54:00 - Institution: [facility] PreOp Case Times Entry 1 In Preop 07/11/18 10:40:00 Ready for Holding n/a Room Patient Ready for 07/11/18 13:24:00 Surgery Patient Out of Preop 07/11/18 14:09:00 Patient Out of n/a Holding Room Last Modified By: IFRAH CLAIRE 07/11/18 15:05:10 SJE PreOp Case Times Audit 07/11/18 15:05:10 Metal Base Blocker: DAYNAM Modifier: [email or web address] <+> 1 Patient Out of Preop 07/11/18 13:45:10 Metal Base Blocker: [id number] Modifier: DAYNAM <+> 1 Patient Ready for Surgery Finalized By: IFRAH CLAIRE Document Signatures Signed By: IFRAH CLAIRE 07/11/18 15:05 Electronically signed by Jorge Luis [facility] Special Education Teacher Cerner at 09/22/2022 11:00 AM CDT documented in this encounter Plan of Treatment Not on file documented as of this encounter Visit Diagnoses Not on filedocumented in this encounter
--- OUTSIDE RECORDS SUMMARY | 2025-04-22 14:35 | XMS_ITS | Encounter Summary ---
Author Organization [employer] ([place], [place], [place], [place], [place]) Address [address] [place] [address] Care Team Providers Care Biostatistics Professor Name Role Phone Unavailable Primary Care Provider Unavailabl e Encounter Details Date Type Department Care Team (Late st Contact Info) Description 07/13/2018 Transcribed Document [facility] Radiology [address] [place] [address] Provider, Layla Acosta MD Social [...] - [facility] Karla ProviderMD - 07/13/2018 3:00 AM EDT Civil Engineering Director Details Entered On: 07/13/2018 1:01 EDT Performed [...]
--- OUTSIDE RECORDS SUMMARY | 2025-04-22 14:35 | XMS_ITS | Encounter Summary ---
Author Organization [employer] ([place], [place], [place], [place], [place]) Address [address] [place] [address] Care Team Providers Care Escrow Manager Name Role Phone Unavailable Primary Care Provider Unavailabl e Encounter Details Date Type Department Care Team (Late st Contact Info) Description 07/13/2018 Transcribed Document [facility] Radiology [address] [place] [address] Provider, Layla Acosta MD Social [...] Miscellaneous Notes * Cerner Conversion Note - Julius Kalra Rojo MD - 07/13/2018 11:32 AM EDT [...] TIA (transient ischemic attack) / SNOMED CT 453886970 / Confirmed HTN (hypertension) / SNOMED CT 9105418986 / Confirmed Hyperlipidemia / SNOMED CT 67730101 / Confirmed Fibromyalgia / SNOMED CT 060438531 / Confirmed Circulation problem / SNOMED CT 3051915329 / Confirmed Diabetes / SNOMED CT 608155306 / Confirmed Depression / SNOMED CT 84967771 / Confirmed CAD (coronary artery disease) / SNOMED CT 63924668 / Confirmed At risk for sleep apnea / IMO 77223433 / Confirmed Arthritis / SNOMED CT 3447525 / Confirmed Anxiety / SNOMED CT 55725491 / Confirmed, Active Problems (11) Anxiety Arthritis [...] 05:41) 96 (JUL 12 12:21) 98 (JUL 12:07) General: Alert and oriented, No acute distress. [...]
--- OUTSIDE RECORDS SUMMARY | 2025-04-22 14:35 | XMS_ITS | Encounter Summary ---
Author Organization [employer] ([place], [place], [place], [place], [place]) Address [address] [place] [address] Care Team Providers Care Embossed Or Impressed Lettering Painter Name Role Phone Unavailable Primary Care Provider Unavailabl e Encounter Details Date Type Department Care Team (Late st Contact Info) Description 07/11/[address] [facility] Radiology [address] [place] [address] ProviderLayla MD Social History Tobacco [...] Miscellaneous Notes * Cerner Conversion Note - [facility] Karla Rojo MD - 07/11/2018 3:59 PM [...]
--- OUTSIDE RECORDS SUMMARY | 2025-04-22 14:35 | XMS_ITS | Encounter Summary ---
Author Organization [employer] ([place], [place], [place], [place], [place]) Address [address] [place] [address] Care Team Providers Care Computer Science Intern Name Role Phone Unavailable Primary Care Provider Unavailabl e Encounter Details Date Type Department Care Team (Late st Contact Info) Description 07/13/2018 Transcribed Document [facility] Radiology 1 [place] [address] Provider, Layla Acosta MD Social [...] 11) Plt 203 (JUL 13) Na 139 (JUL 13) L 133 (JUL 12) 136 (JUL 11) 138 (JUN 30) K H 5.2 (JUL 13) H 5.7 (JUL 12) H 5.3 (JUL 11) 4.6 (JUN 30) Cl 112 (JUN 14) 104 (JUN 13) 107 (JUN 12) 111 (JUN 01) CO2 22 (JUL 13) 21 (JUL 12) 21 (JUL 11) 22 (JUN 30) BUN H 31 (JUN 14) H 31 (JUN 13) H 28 (JUN 12) H 30 (JUN 01) Cr H 2.46 (JUN 14) H 2.74 (JUN 13) H 2.31 (JUN 12) H 2.43 (JUN 30) Glu R L 68 (JUL 13) H 366 (JUL 12) H 249 (JUL [...]
--- OUTSIDE RECORDS SUMMARY | 2025-04-22 14:35 | XMS_ITS | Encounter Summary ---
Author Organization [employer] ([place], [place], [place], [place], [place]) Address [address] [place] [address] Care Team Providers Care Hoop Bending Machine Operator Name Role Phone Unavailable Primary Care Provider Unavailabl e Encounter Details Date Type Department Care Team (Late st Contact Info) Description 07/13/2018 Transcribed Document [facility] Radiology [address] [place] [address] Provider, Layla Acosta MD Social [...] [facility] Karla Rojo MD - 07/13/2018 11:47 AM EDT Nursing Discharge Summary Entered On: 07/13/2018 10:48 EDT Performed On: 07/13/2018 10:47 EDT by Lucille Azevedo RN Discharge Documentation Discharge Date/Time : 07/13/2018 12:13 EDT Mraion Farias Rn - 07/13/2018 12:13 EDT Patient [...]
--- OUTSIDE RECORDS SUMMARY | 2025-04-22 14:35 | XMS_ITS | Encounter Summary ---
Author Organization [employer] ([place], [place], [place], [place], [place]) Address [address] [place] [address] Care Team Providers Care Preventative Maintenance Technician Name Role Phone Unavailable Primary Care Provider Unavailabl e Encounter Details Date Type Department Care Team (Late st Contact Info) Description 07/11/2018 Transcribed Document [facility] Radiology [address] [place] [address] Provider, Layla Acosta MD Social [...] Discharge Needs at This Time : None Caren Aline, Rn - 07/11/2018 21:44 EDT Education Topics, [...] Obtained From : Patient Primary Language : Pakistani Preferred Communication Mode : Verbal Communication Barrier [...] Scale Risk Level : 25-45 Medium Risk [place] Fall Interventions : Adequate lighting, Bed in low position, Call device within reach, Fall prevention handout/education per facility policy, Frequent orientation to call device, Frequent orientation to surroundings, Hourly comfort/safety rounds, Non-slip footwear, Personal items within reach, Reinforced to call for assistance before getting out of bed, Room free of clutter/spills, Upper side-rails up, Wheels locked, Wires/Cords secured Ailne Fabian Rn - 07/11/2018 21:44 EDT Fall [...] of Topic : Good Teaching Method : Family Court Justice Learning Style Preferences Family : Printed materials, [...] (Last Updated: 10/20/2017 13:21:22 EDT by Sun Coughlin, Rn) 10 or more cigarettes (1/2 pack or more)/day in last 30 days Smoking Status. Never Smokeless Tobacco Status. Years of Use: 52. Packs/Tins Daily: 1. (Last Updated: 06/30/2018 10:01:57 EST by KENNY BECERRA, RN) Alcohol: Alcohol Use History Yes. Alcohol [...] Source : Stated Height Entry Format : [place] Height, Feet : 5 ft(Converted to: 152 cm, 60 Inch) Height, Inches : 0 Inch(Converted to: 0 ft 0 Inch, 0.00 cm) Clinical Height : 152.4 cm Weight Source : Standing scale Weight Entry Format : [place] Clinical Dosing Weight : 73.09 kg Weight, Pounds : 160.8 lb Body Surface Area (BSA) : 1.7 m2 Body Mass Index : 31.5 kg/m2 (HI) [place] Body Weight : 45 kg Aline Fabian [...]
--- OUTSIDE RECORDS SUMMARY | 2025-04-22 14:35 | XMS_ITS | Encounter Summary ---
Author Organization [employer] ([place], [place], [place], [place], [place]) Address [address] [place] [address] Care Team Providers Care Barge Master Name Role Phone Unavailable Primary Care Provider Unavailabl e Encounter Details Date Type Department Care Team (Late st Contact Info) Description 07/11/2018 Transcribed Document [facility] Radiology [address] [place] [address] ProviderLayla MD Social History Tobacco Use Types Packs/Day Years Used Date Smoking Tobacco: Never Assessed Comments Unknown Sex and Gender Information Value Date Recorded Sex Assigned at Female 11/06/2021 1:31 PM CDT Legal Sex Female 8:13 PM CDT Gender Identity Female 11/06/2021 1:31 PM CDT Sexual Orientation Not on file documented as of this encounter Miscellaneous Notes * Aman Conversion Note - [facility] Karla Rojo MD - 07/11/2018 8:00 PM EDT [...]
--- OUTSIDE RECORDS SUMMARY | 2025-04-22 14:35 | XMS_ITS | Encounter Summary ---
Author Organization [employer] ([place], [place], [place], [place], [place]) Address [address] [place] [address] Care Team Providers Care Principal Planner Name Role Phone Unavailable Primary Care Provider Unavailabl e Encounter Details Date Type Department Care Team (Late st Contact Info) Description 07/12/2018 Transcribed Document [facility] Radiology [address] [place] [address] Provider, Layla Acosta MD Social [...] RENAL CONSULT NOTE WITH [facility] CONSULTING PHYSICIAN: Carroll Martin M.D. REASON FOR CONSULTATION: Elevated creatinine. CHIEF COMPLAINT: Knee replacement. HISTORY OF PRESENT ILLNESS: Patient is a 72-year-old white female with history of CKD in the past, follows with slitter and rewinder machine operator in [place]. Per patient reports, her baseline creatinine around [...] Follows with Nephrology in [place], may be [facility] slitter and rewinder machine operator. 3. Hypertension. Blood pressure was low yesterday, hold angiotensin converting enzyme inhibitor and monitor. 4. Hyperkalemia. Low-potassium diet. Kayexalate p.r.n., . 5. Status post right total knee arthroplasty. 6. Patient is high risk and complex patient. Gen Lam M.D. Dict: 07/12/2018 15:51:02 Trans: 07/13/2018 00:22:40 Processed: 07/13/2018 11:15:54 [place] CC1: Gen Lam M.D. Electronically signed by Jorge Luis, [facility] Conversion Hvac Sales Engineer Cerner at 09/22/2022 11:00 AM CDT documented in this encounter Plan of Treatment Not on file documented as of this encounter Visit Diagnoses Not on filedocumented in this encounter
--- OUTSIDE RECORDS SUMMARY | 2025-04-22 14:35 | XMS_ITS | Encounter Summary ---
Author Organization [employer] ([place], [place], [place], [place], [place]) Address [address] [place] [address] Care Team Providers Care Brass Molder Name Role Phone Unavailable Primary Care Provider Unavailabl e Encounter Details Date Type Department Care Team (Late st Contact Info) Description 07/30/2019 Transcribed Document [facility] Radiology [address] [place] [address] ProviderLayla MD Social History Tobacco [...] Notes * Cerner Conversion Note - [facility] Karla Rojo MD - 07/30/2019 11:42 AM EDT Orthopedic Nurse Navigator Entered On: 07/30/2019 10:42 EDT Performed On: 07/30/2019 10:42 EDT by Marion Farias Nurse bead wrapper Nurse Navigator Assessment Joint Navigator Assessment Note : 1 year post op surveys. Marion Farias Nurse RN - 07/30/2019 10:42 EDT documented in this encounter Plan of Treatment Not on file documented as of this encounter Visit Diagnoses Not on filedocumented in this encounter
--- OUTSIDE RECORDS SUMMARY | 2025-04-22 14:35 | XMS_ITS | Encounter Summary ---
Author Organization [employer] ([place], [place], [place], [place], [place]) Address [address] [place] [address] Care Team Providers Care Guide Dog Trainer Name Role Phone Unavailable Primary Care Provider Unavailabl e Encounter Details Date Type Department Care Team (Late st Contact Info) Description 07/11/2018 Transcribed Document [facility] Radiology [address] [place] [address] Provider, Layla Acosta MD Social [...] [facility] Karla Rojo MD - 07/11/2018 3:47 PM EDT [facility] [place] PACU Summary Primary Physician: FREDERIC ADAMS MD-ORT Finalized Date/Time: 07/11/18 18:08:25 Pt. Name: FLOR LUX/Sex: 1945 Female Med Rec #: [id number] Physician: FREDERIC ADAMS MD-ORT Financial #: [id number] Pt. Type: O Room/Bed: 508/1 Admit/Disch: 07/11/18 04:54:00 - Institution: [facility] [place] Main OR PACU Case Times Entry 1 In PACU I 07/11/18 16:03:00 Ready for PACU 07/11/18 17:03:00 Discharge Discharge from PACU 07/11/18 17:43:00 I Last Modified By: Mayra Cunningham Rn Patient Care Bedside 07/11/18 18:08:09 [facility] Main OR PACU Case Times Audit 07/11/18 18:08:09 Paraffin Plant Sweater Operator: BARRERA Modifier: MAYRABORIS <+> 1 Ready for PACU Discharge <+> [...] 07/11/18 18:08 Electronically signed by Jorge Luis [facility] Conversion Barista Cerner at 09/22/2022 11:00 AM CDT documented in this encounter Plan of Treatment Not on file documented as of this encounter Visit Diagnoses Not on filedocumented in this encounter
--- OUTSIDE RECORDS SUMMARY | 2025-04-22 14:35 | XMS_ITS | Encounter Summary ---
Author Organization [employer] ([place], [place], [place], [place], [place]) Address [address] [place] [address] Care Team Providers Care Manager Of Radiology Name Role Phone Unavailable Primary Care Provider Unavailabl e Encounter Details Date Type Department Care Team (Late st Contact Info) Description 07/11/2018 Transcribed Document [facility] Radiology [address] [place] [address] Provider, Layla Acosta MD Social [...] Gudino M.D. Electronically signed by Jorge Luis [facility] Conversion Repeat Photocomposing Machine Operator Cerner at 09/22/2022 11:00 AM CDT documented in this encounter Plan of Treatment Not on file documented as of this encounter Visit Diagnoses Not on filedocumented in this encounter
--- OUTSIDE RECORDS SUMMARY | 2025-04-22 14:35 | XMS_ITS | Encounter Summary ---
Author Organization [employer] ([place], [place], [place], [place], [place]) Address [address] [place] [address] Care Team Providers Care Ground Systems Engineer Name Role Phone Unavailable Primary Care Provider Unavailabl e Encounter Details Date Type Department Care Team (Late st Contact Info) Description 07/10/2018 Transcribed Document [facility] Radiology [address] [place] [address] Provider, Layla Acosta MD Social [...]
--- OUTSIDE RECORDS SUMMARY | 2025-04-22 14:35 | XMS_ITS | Encounter Summary ---
Author Organization [employer] ([place], [place], [place], [place], [place]) Address [address] [place] [address] Care Team Providers Care English Adjunct Faculty Name Role Phone Unavailable Primary Care Provider Unavailabl e Encounter Details Date Type Department Care Team (Late st Contact Info) Description 07/30/2019 Transcribed Document [facility] Radiology [address] [place] [address] Provider, Layla Acosta MD Social [...] from sitting : None 7. Bending to floor/brick picker an object : None WINSOME PATEL [...]
--- OUTSIDE RECORDS SUMMARY | 2025-04-22 14:35 | XMS_ITS | Encounter Summary ---
Author Organization [employer] ([place], [place], [place], [place], [place]) Address [address] [place] [address] Care Team Providers Care Financial Accounting Manager Name Role Phone Unavailable Primary Care Provider Unavailabl e Encounter Details Date Type Department Care Team (Late st Contact Info) Description 07/11/2018 Transcribed Document [facility] Radiology [address] [place] [address] ProviderLayla MD Social History Tobacco [...] Miscellaneous Notes * Cerner Conversion Note - [facility] Karla Rojo MD - 07/11/2018 [...]
--- OUTSIDE RECORDS SUMMARY | 2025-04-22 14:35 | XMS_ITS | Encounter Summary ---
Author Organization [employer] ([place], [place], [place], [place], [place]) Address [address] [place] [address] Care Team Providers Care Circuit Board Repair Technician Name Role Phone Unavailable Primary Care Provider Unavailabl e Encounter Details Date Type Department Care Team (Late st Contact Info) Description 07/11/2018 Transcribed Document [facility] Radiology [address] [place] [address] Provider, Layla Acosta MD Social [...] Miscellaneous Notes * [employer] Conversion Note - [facility] Karla Rojo MD - 07/11/2018 7:23 PM [...]
--- OUTSIDE RECORDS SUMMARY | 2025-04-22 14:35 | XMS_ITS | Clinical Summary ---
Author Organization [employer] ([place], [place], [place], [place], [place]) Address [address] [place] [address] Care Team Providers Care Shuffle Board Operator Name Role Phone Unavailable Primary Care [...]
--- OUTSIDE RECORDS SUMMARY | 2025-04-22 14:35 | XMS_ITS | Encounter Summary ---
Author Organization [employer] ([place], [place], [place], [place], [place]) Address [address] [place] [address] Care Team Providers Care Factory Focus Technician Name Role Phone Unavailable Primary Care Provider Unavailabl e Encounter Details Date Type Department Care Team (Late st Contact Info) Description 07/11/2018 Transcribed Document [facility] Radiology [address] [place] [address] Provider, Layla Acosta MD Social [...] Note - Layla Rojo MD - 07/11/2018 12:08 PM EDT Pediatric Growth Entered On: 07/11/2018 11:08 EDT Performed On: 07/11/2018 11:08 EDT by oGldie Dexter Patient Support Associate Height and Weight, Clinical Dosing Height Source : Stated Height Entry Format : [place] Height, Feet : 5 ft(Converted to: 152 cm, 60 Inch) Height, Inches : 0 Inch(Converted to: 0 ft 0 Inch, 0.00 cm) Clinical Height : 152.4 cm Weight Source : Standing scale Weight Entry Format : [place] Clinical Dosing Weight : 73.09 kg Weight, Pounds : 160.8 lb Body Surface Area (BSA) : 1.7 m2 Body Mass Index : 31.5 kg/m2 (HI) [place] Body Weight : 45 kg Brown, Goldie N, Patient Support Associate - 07/11/2018 11:08 EDT Electronically signed by Jorge Luis, [facility] Conversion Bender Helper Cerner at 09/22/2022 11:00 AM CDT documented in this encounter Plan of Treatment Not on file documented as of this encounter Visit Diagnoses Not on filedocumented in this encounter
--- OUTSIDE RECORDS SUMMARY | 2025-04-22 14:35 | XMS_ITS | Encounter Summary ---
Author Organization [employer] ([place], [place], [place], [place], [place]) Address [address] [place] [address] Care Team Providers Care Fire Lookout Name Role Phone Unavailable Primary Care Provider Unavailabl e Encounter Details Date Type Department Care Team (Late st Contact Info) Description 07/11/2018 Transcribed Document [facility] Radiology 1 [place] [address] Provider, Layla Acosta MD Social [...] and has left rail. Owns RW. NENITA PEREZ PT - 07/12/2018 11:46 EDT Upper Extremity [...] to Stand : Supervision/set-up (Comment: with RW [ALEMNENITA MERCADO, PT - 07/12/2018 11:46 EDT] ) Bed [...] NENITA PEREZ, PT - 07/12/2018 11:46 EDT AM [facility] Basic Mobility Turning Over in Bed : None Sit Down On/Stand Up From Chair w/ Arms : A little Move Back Lying to Sitting Side of Bed : None Moving To/From a Bed to Chair : A little Need to Walk in Hospital Room : A little Climbing 3-5 Steps with a Railing : A little AM-[facility] Basic Mobility Raw Score : 20 AM-[facility] Basic Mobility Standardized Score : 47.67 AM-[facility] Basic Mobility CMS 0-100% Score : 35.83 [...] Verbalizes understanding NENITA PEREZ PT - 07/12/2018 11:46 EDT Indication Assesessment, PT Physical Therapy Indicated : Yes Interdisciplinary Consultation(s) Needed : No PT Problem List : Impaired, activities daily living, Impaired, bed mobility, Impaired, endurance tolerance, Impaired, gait, Impaired, joint mobility, Impaired, stair mobility, Impaired, standing balance, Impaired, strength, Impaired, transfers, Pain limiting function Potential Barriers To Therapy : None evident Rehabilitation Potential : Good NENITA PEREZ, PT - 07/12/2018 11:46 EDT Plan of Care, PT PT Tx Plan/Goals Established w Patient : Yes PT Frequency Rehab : Daily, twice (bid) PT Duration Rehab : Three days PT Treatments Planned : Balance training, Bed mobility training, Caregiver training, Gait training, Safety education, Stair training, Therapeutic exercises, Transfer training NENITA PEREZ PT - 07/12/2018 11:46 EDT Office Equipment Mechanic Goals Other PT LTG Grid Goal #1 [...] will need stair training before DC. NENITA PEREZ, PT - 07/12/2018 11:46 EDT Anticipated Discharge [...]
--- OUTSIDE RECORDS SUMMARY | 2025-04-22 14:35 | XMS_ITS | Encounter Summary ---
Author Organization [facility] Address [address] [place] [address] Care Team Providers Care Signal Operator Linguist Name Role Phone Haroldo Key MD Primary Care Provider [phone] Encounter Details Date Type Department Care Team (Latest Contact Info) Description 02/27/2025 Travel Social History Tobacco Use Types Packs/Day Years [...] 07/25/2024 How often do you attend chur ch or episcopalian services? Never 07/25/2024 Do you belong to any clubs o r organizations such as religion groups, unions, fraternal or athletic groups, or [...] more drinks on one occasion? Never 07/25/2024 [facility] - Occupational Stress Questionnaire Answer Date Recorded [...] any time in the past 12 m ont, were you homeless or living in a long term (including now)? No 07/25/2024 Utilities Answer Date Recorded In the past 12 months has e electric, gas, oil, or water company threatened to shut off services in your home? No 07/25/2024 Comments Unknown Sex and Gender Information Value Date Recorded Sex Assigned at Not on file Legal Sex Female 8:43 PM EDT Gender Identity Not on file Sexual Orientation Not on file documented as of this encounter Plan of Treatment Upcoming Encounters Date Type Department Care Team (Late st Contact Info) Description 06/04/2025 1:30 PM EST [facility] Visit [facility] [address] [place] [address] Lucila Johnson APRN [address] [facility] [address] [place] [address] documented as of this encounter Visit Diagnoses Not on filedocumented in this encounter Additional Health Concerns Assessment Noted Time A Body Mass Index follow-up plan has been documented for the patient 02/27/2025 3:31 PM EDT documented as of this encounter Care Teams Signal Operator Linguist Relationship Specialty Start Date End Date Haroldo Key MD [address] [place] [address] PCP - General 09/12/20 documented as of this encounter
--- OUTSIDE RECORDS SUMMARY | 2025-04-22 14:35 | XMS_ITS | Encounter Summary ---
Author Organization [employer] ([place], [place], [place], [place], [place]) Address [address] [place] [address] Care Team Providers Care Physical Therapist Technician Name Role Phone Unavailable Primary Care Provider Unavailabl e Encounter Details Date Type Department Care Team (Late st Contact Info) Description 07/11/2018 Transcribed Document [facility] Radiology [address] [place] [address] Provider, Layla Acosta MD [...] Miscellaneous Notes * Cerner Conversion Note - [facility] Karla ProviderMD - 07/11/2018 4:23 PM EDT [...] Nerve Block Performed by : REFUGIO AYALA DO-ANS Medication Delivery Method : Single Shot Peripheral Nerve Block Assisted by : Hemalatha Solomon Nurse - other Ultra sound used during insertion : Yes Nerve Block Activity, Patient Tolerance : Good Peripheral Nerve Block Comment : PRE OP NERVE BLOCK PER SURGEON REQUEST Peripheral Nerve Block End Date/Time : 07/11/2018 13:55 EDT Hemalatha Solomon, Nurse - other - 07/11/2018 15:23 EDT Electronically signed by Layla Kang Conversion Cessation Systems Outreach Specialist Cerner at 09/22/2022 11:00 AM CDT documented in this encounter Plan of Treatment Not on file documented as of this encounter Visit Diagnoses Not on filedocumented in this encounter
--- OUTSIDE RECORDS SUMMARY | 2025-04-22 14:35 | XMS_ITS | Encounter Summary ---
Author Organization [employer] ([place], [place], [place], [place], [place]) Address [address] [place] [address] Care Team Providers Care Mental Health Unit Lead Psychologist Name Role Phone Unavailable Primary Care Provider Unavailabl e Encounter Details Date Type Department Care Team (Late st Contact Info) Description 07/11/2018 Transcribed Document [facility] Radiology [address] [place] [address] Provider, Layla Acosta MD Social [...] Note - Layla Rojo MD - 07/11/2018 2:16 PM EDT Pre Procedure Adult Entered On: 07/11/2018 13:20 EDT Performed On: 07/11/2018 13:16 EDT by RUBY ARIZA RN Height and Weight, Clinical Dosing Height Source : Stated Height Entry Format : [place] Height, Feet : 5 ft(Converted to: 152 cm, 60 Inch) Height, Inches : 0 Inch(Converted to: 0 ft 0 Inch, 0.00 cm) Clinical Height : 152.4 cm Weight Source : Standing scale Weight Entry Format : [place] Clinical Dosing Weight : 73.09 kg Weight, Pounds : 160.8 lb Body Surface Area (BSA) : 1.7 m2 Body Mass Index : 31.5 kg/m2 (HI) [place] Body Weight : 45 kg RUBY ARIZA [...] Obtained From : Patient Primary Language : Portuguese Preferred Communication Mode : Verbal Communication Barrier [...] ability Oneil Fall Risk Score : 50 NOEIL Fall Scale Risk Level : 46 or > High Risk [place] Fall Interventions : Adequate lighting, Bed in [...] the text rendition version of the form. [place] Coma [place] Best Motor Response : Obey commands Kirstin Best Verbal Response : Oriented Kirstin Eye Opening Response : Spontaneous Kirstin Coma Score : 15 RUBY ARIZA RN - 07/11/2018 13:16 EDT documented in this encounter Plan of Treatment Not on file documented as of this encounter Visit Diagnoses Not on filedocumented in this encounter
--- OUTSIDE RECORDS SUMMARY | 2025-04-22 14:36 | XMS_ITS | Encounter Summary ---
Author Organization [employer] ([place], [place], [place], [place], [place]) Address [address] [place] [address] Care Team Providers Care Stem Roller Name Role Phone Unavailable Primary Care Provider Unavailabl e Encounter Details Date Type Department Care Team (Late st Contact Info) Description 07/12/2018 Transcribed Document [facility] Radiology [address] [place] [address] Provider, Layla Acosta MD Social [...]
--- OUTSIDE RECORDS SUMMARY | 2025-04-22 14:36 | XMS_ITS | Encounter Summary ---
Author Organization [employer] ([place], [place], [place], [place], [place]) Address [address] [place] [address] Care Team Providers Care Freight Tallier Name Role Phone Unavailable Primary Care Provider Unavailabl e Encounter Details Date Type Department Care Team (Late st Contact Info) Description 07/12/2018 Transcribed Document [facility] Radiology [address] [place] [address] Provider, Layla Acosta MD Social [...] 18:24 PT Treatment Instructions Ordered By: FREDERIC AADMS MD-ORT 07/11/2018 18:24 PT Evaluation and Treatment [...] NENITA PEREZ PT - 07/12/2018 13:35 EDT Ceramic Maker Demonstrator Goals Other PT LTG Grid Goal #1 [...]
--- OUTSIDE RECORDS SUMMARY | 2025-04-22 14:36 | XMS_ITS | Encounter Summary ---
Author Organization [employer] ([place], [place], [place], [place], [place]) Address [address] [place] [address] Care Team Providers Care Home Theater Specialist Name Role Phone Unavailable Primary Care Provider Unavailabl e Encounter Details Date Type Department Care Team (Late st Contact Info) Description 07/12/2018 Transcribed Document [facility] Radiology [address] [place] [address] Provider, Layla Acosta MD Social [...] Note - [facility] Karla Rojo MD - 07/12/2018 4:16 PM EDT [facility] [address] , [place] [address] Patient Copy Patient Information: Name: FLOR LUX Current Date: 07/12/2018 15:16:51 : 1945 Patient Address: [place] [address] Patient Attending Physician: FREDERIC ADAMS MD-ORT Primary Care Provider: RODO SANFORD MD-[facility] Primary Care Provider Discharge Diagnosis: Weight on Admission: 175 lb, 0 oz Comment: Follow-up Instructions: With: Address: When: DEYSI MEJIA [address] [facility], [address]LO[address] [place] [phone] Business (1) 11:15 AM Comments: Appointment has [...] Barley. Bulgur wheat. Millet. Bran muffins. Popcorn. [place] wafer crackers. ?? Vegetables Sweet potatoes. Spinach. Kale. Artichokes. Cabbage. Broccoli. Green peas. Carrots. Squash. ?? Fruits Berries. Pears. Apples. Oranges. Avocados. Prunes and raisins. Dried figs. ?? Meats and Other Protein Sources [place], kidney, hoff, and soy beans. Split peas. [...] alphonso has 11 g of protein. ?? Pullman seeds ??? 1 oz has 5.5 g [...] floor. ?? Place frequently used items in qjyq-xo-xrxls places ?? Keep electrical cables out of [...] ? Using the bathroom. ? Using household axle bearing polisher or toxic chemicals. ? Touching or taking [...] are a day sleeper or work a nursing program chair. Some people have thoughts about suicide while [...] may report side effects to FDA at 8-313-HYY-8722. What other drugs will affect gabapentin? Taking gabapentin with other drugs that make you sleepy can worsen this effect. Ask your doctor before taking a sleeping pill, narcotic medication, muscle relaxer, or medicine for anxiety, depression, or seizures. Other drugs may interact with gabapentin, including prescription and nwly-aur-ufozbhi medicines, vitamins, and herbal products. Tell your [...] to ensure that the information provided by [employer]. ('[employer]') is accurate, up-to-date, and complete, but no guarantee is made to that effect. Drug information contained herein may be time sensitive. Movable information has been compiled for use by healthcare practitioners and consumers in the [place] and therefore [employer] does not warrant that uses outside of the [place] are appropriate, unless specifically indicated otherwise. [employer] drug information does not endorse drugs, diagnose patients or recommend therapy. [employer] drug information is an informational resource designed [...] effective or appropriate for any given patient. [employer] does not assume any responsibility for any aspect of healthcare administered with the aid of information [employer] provides. The information contained herein is not intended to cover all possible uses, directions, precautions, warnings, drug interactions, allergic reactions, or adverse effects. If you have questions about the drugs you are taking, check with your doctor, nurse or pharmacist. Copyright 2155-6221 [employer]. Version: 14.. Revision Date: 02/08/2017. oxycodone (ox i KOE [...] The extended-release form of oxycodone is for jrbxav-tsi-hfgoy treatment of pain and should not be [...] against the law. Stop taking all other yxwudf-rcm-qaaoy narcotic pain medicines when you start taking [...] may report side effects to FDA at 9-807-PNI-2102. What other drugs will affect oxycodone? You [...] may affect oxycodone. This includes prescription and jvgc-uub-pawihie medicines, vitamins, and herbal products. Not all [...] to ensure that the information provided by [employer]. ('[employer]') is accurate, up-to-date, and complete, but no guarantee is made to that effect. Drug information contained herein may be time sensitive. Movable information has been compiled for use by healthcare practitioners and consumers in the [place] and therefore [employer] does not warrant that uses outside of the [place] are appropriate, unless specifically indicated otherwise. [employer] drug information does not endorse drugs, diagnose patients or recommend therapy. [employer] drug information is an informational resource designed [...] effective or appropriate for any given patient. [employer] does not assume any responsibility for any aspect of healthcare administered with the aid of information Mov[employer] provides. The information contained herein is not intended to cover all possible uses, directions, precautions, warnings, drug interactions, allergic reactions, or adverse effects. If you have questions about the drugs you are taking, check with your doctor, nurse or pharmacist. Copyright 1409-4519 [employer]. Version: 13.02. Revision Date: 03/29/2018. tramadol (TRAM a dol) Lizabethp, Ultram, Ultram ER What is the most [...] extended-release form of this medicine is for asapti-zzg-xkrmm treatment of pain. This form of tramadol [...] against the law. Stop taking all other tovpuc-huq-erpmh narcotic pain medications when you start taking [...] may report side effects to FDA at 7-525-GTI-7641. What other drugs will affect tramadol? You [...] may affect tramadol. This includes prescription and nbbn-wjl-sfpayyl medicines, vitamins, and herbal products. Not all [...] to ensure that the information provided by [employer]. ('[employer]') is accurate, up-to-date, and complete, but no guarantee is made to that effect. Drug information contained herein may be time sensitive. Movable information has been compiled for use by healthcare practitioners and consumers in the [place] and therefore [employer] does not warrant that uses outside of the [place] are appropriate, unless specifically indicated otherwise. [employer]'s drug information does not endorse drugs, diagnose patients or recommend therapy. [employer] drug information is an informational resource designed [...] effective or appropriate for any given patient. [facility] does not assume any responsibility for any aspect of healthcare administered with the aid of information [facility] provides. The information contained herein is not intended to cover all possible uses, directions, precautions, warnings, drug interactions, allergic reactions, or adverse effects. If you have questions about the drugs you are taking, check with your doctor, nurse or pharmacist. Copyright 7880-9974 [facility] [employer]. Version: 18.02. Revision Date: 03/29/2018. CIGARETTE SMOKING: The facts are clear, cigarette smoking will shorten your life. Smoking can cause many illnesses along the way. As a healthcare provider, we recommend that you stop smoking. Assistance with quitting is available by contacting 7-434-XPVN-NOW. This is a free resource providing counseling, [...] sure to sign up for the My [employer] patient portal, which gives you 22/11 access to your medical information ??? including these discharge instructions ??? using your computer, smartphone, or tablet. Just go to [employer] to get started. Questions? Call . [facility] would like to thank you for allowing us to assist you with your healthcare needs. MACI Benjamin RITA MOR, (or sales and service representative) have received the above patient education materials/instructions and have verbalized understanding: Patient Signature _ Date/Time Patient Wet Machine Cutter Signature (if needed) Date/Time Clinician/Hospital Wet Machine Cutter Signature (if needed) Date/Time documented in this encounter Plan of Treatment Not on file documented as of this encounter Visit Diagnoses Not on filedocumented in this encounter
--- OUTSIDE RECORDS SUMMARY | 2025-04-22 14:36 | XMS_ITS | Encounter Summary ---
Author Organization [employer] ([place], [place], [place], [place], [place]) Address [address] [place] [address] Care Team Providers Care Wealth Management Manager Name Role Phone Unavailable Primary Care Provider Unavailabl e Encounter Details Date Type Department Care Team (Late st Contact Info) Description 07/12/2018 Transcribed Document [facility] Radiology 1 [place] [address] Provider, Layla Acosta MD Social [...] Note - Layla Rojo MD - 07/12/2018 7:00 PM EDT [...]
--- OUTSIDE RECORDS SUMMARY | 2025-04-22 14:36 | XMS_ITS | Encounter Summary ---
Author Organization [employer] ([place], [place], [place], [place], [place]) Address [address] [place] [address] Care Team Providers Care Professor Of Latin American Studies Name Role Phone Unavailable Primary Care Provider Unavailabl e Encounter Details Date Type Department Care Team (Late st Contact Info) Description 07/12/[address] [facility] Radiology 1 [place] [address] Provider, Layla Acosta MD Social [...] [facility] Karla Rojo MD - 07/12/2018 7:07 PM EDT [facility] [address] [facility] [address] , [place] [address] Patient Copy Patient Information: Name: FLOR LUX Current Date: 07/12/2018 18:07:05 : 1945 Patient Address: [place] [address] Patient Attending Physician: FREDERIC ADAMS MD-ORT Primary Care Provider: RODO SANFORD MD-[facility] Primary Care Provider Discharge Diagnosis: Weight on Admission: 175 lb, 0 oz Comment: Follow-up Instructions: With: Address: When: DEYSI MEJIA [address] [facility], [address]LO[address] [place] [phone] Business (1) 11:15 AM Comments: Appointment has been made Discharge Instructions: Medical Equipment for Home Use: BLUEGRASS BRACING FOR CPM RENTAL Home Health Services: [facility] [phone] Immunizations Documented During Stay: No Immunizations Found [...] Barley. Bulgur wheat. Millet. Bran muffins. Popcorn. [place] wafer crackers. ?? Vegetables Sweet potatoes. Spinach. Kale. Artichokes. Cabbage. Broccoli. Green peas. Carrots. Squash. ?? Fruits Berries. Pears. Apples. Oranges. Avocados. Prunes and raisins. Dried figs. ?? Meats and Other Protein Sources [place], kidney, hoff, and soy beans. Split peas. [...] alphonso has 11 g of protein. ?? Mcdonough seeds ??? 1 oz has 5.5 g [...] floor. ?? Place frequently used items in ysrb-tp-yprmv places ?? Keep electrical cables out of [...] ? Using the bathroom. ? Using household solvent plant treater or toxic chemicals. ? Touching or taking [...] may report side effects to FDA at 3-777-XVU-4084. What other drugs will affect gabapentin? Taking gabapentin with other drugs that make you sleepy can worsen this effect. Ask your doctor before taking a sleeping pill, narcotic medication, muscle relaxer, or medicine for anxiety, depression, or seizures. Other drugs may interact with gabapentin, including prescription and zcdy-jou-ofjuiev medicines, vitamins, and herbal products. Tell your [...] to ensure that the information provided by [employer]. ('[employer]') is accurate, up-to-date, and complete, but no guarantee is made to that effect. Drug information contained herein may be time sensitive. [employer] information has been compiled for use by healthcare practitioners and consumers in the [place] and therefore [employer] does not warrant that uses outside of the [place] are appropriate, unless specifically indicated otherwise. [employer] drug information does not endorse drugs, diagnose patients or recommend therapy. [employer] drug information is an informational resource designed [...] effective or appropriate for any given patient. [employer] does not assume any responsibility for any aspect of healthcare administered with the aid of information [employer] provides. The information contained herein is not intended to cover all possible uses, directions, precautions, warnings, drug interactions, allergic reactions, or adverse effects. If you have questions about the drugs you are taking, check with your doctor, nurse or pharmacist. Copyright 3246-8955 [employer]. Version: 14.01. Revision Date: 02/08/2017. oxycodone (ox [...] The extended-release form of oxycodone is for sogedb-izw-yozot treatment of pain and should not be [...] against the law. Stop taking all other ykgzhi-huf-tnkep narcotic pain medicines when you start taking [...] may report side effects to FDA at 3-531-IUX-3776. What other drugs will affect oxycodone? You [...] may affect oxycodone. This includes prescription and magy-wcc-wdurbvm medicines, vitamins, and herbal products. Not all [...] to ensure that the information provided by [employer]. ('[employer]') is accurate, up-to-date, and complete, but no guarantee is made to that effect. Drug information contained herein may be time sensitive. [employer] information has been compiled for use by healthcare practitioners and consumers in the [place] and therefore [employer] does not warrant that uses outside of the [place] are appropriate, unless specifically indicated otherwise. [employer]'s drug information does not endorse drugs, diagnose patients or recommend therapy. [employer] drug information is an informational resource designed [...] effective or appropriate for any given patient. [employer] does not assume any responsibility for any aspect of healthcare administered with the aid of information [employer] provides. The information contained herein is not intended to cover all possible uses, directions, precautions, warnings, drug interactions, allergic reactions, or adverse effects. If you have questions about the drugs you are taking, check with your doctor, nurse or pharmacist. Copyright 6651-0192 [employer]. Version: 13.02. Revision Date: 03/29/2018. tramadol (TRAM [...] extended-release form of this medicine is for ysttjo-eid-lzewa treatment of pain. This form of tramadol [...] against the law. Stop taking all other yjcvhx-jwh-accdt narcotic pain medications when you start taking [...] may report side effects to FDA at 7-847-WIR-1572. What other drugs will affect tramadol? You [...] may affect tramadol. This includes prescription and mkyl-zdd-yoqxade medicines, vitamins, and herbal products. Not all [...] to ensure that the information provided by [employer]. ('[employer]') is accurate, up-to-date, and complete, but no guarantee is made to that effect. Drug information contained herein may be time sensitive. [employer] information has been compiled for use by healthcare practitioners and consumers in the [place] and therefore [employer] does not warrant that uses outside of the [place] are appropriate, unless specifically indicated otherwise. [employer]'s drug information does not endorse drugs, diagnose patients or recommend therapy. [employer] drug information is an informational resource designed [...] effective or appropriate for any given patient. [facility] does not assume any responsibility for any aspect of healthcare administered with the aid of information [facility] provides. The information contained herein is not intended to cover all possible uses, directions, precautions, warnings, drug interactions, allergic reactions, or adverse effects. If you have questions about the drugs you are taking, check with your doctor, nurse or pharmacist. Copyright 9365-1506 [facility]. Version: 18.02. Revision Date: 03/29/2018. CIGARETTE SMOKING: The facts are clear, cigarette smoking will shorten your life. Smoking can cause many illnesses along the way. As a healthcare provider, we recommend that you stop smoking. Assistance with quitting is available by contacting 8-216-CAGN-NOW. This is a free resource providing counseling, [...] sure to sign up for the My [employer] patient portal, which gives you 22/11 access to your medical information ??? including these discharge instructions ??? using your computer, smartphone, or tablet. Just go to [employer] to get started. Questions? Call . [facility] would like to thank you for allowing us to assist you with your healthcare needs. I, FLOR LUX, (or event representative) have received the above patient education materials/instructions and have verbalized understanding: Patient Signature _ Date/Time Patient Banding Machine Operator Signature (if needed) Date/Time Clinician/Hospital Banding Machine Operator Signature (if needed) Date/Time documented in this encounter Plan of Treatment Not on file documented as of this encounter Visit Diagnoses Not on filedocumented in this encounter
--- OUTSIDE RECORDS SUMMARY | 2025-04-22 14:36 | XMS_ITS | Encounter Summary ---
Author Organization [employer] ([place], [place], [place], [place], [place]) Address [address] [place] [address] Care Team Providers Care Fruit I Farmworker Name Role Phone Unavailable Primary Care Provider Unavailabl e Encounter Details Date Type Department Care Team (Late st Contact Info) Description 07/13/2018 Transcribed Document [facility] Radiology 1 [place] [address] Provider, Layla Acosta MD Social [...] Miscellaneous Notes * Cerner Conversion Note - [facility] Karla Rojo MD - 07/13/2018 1:00 AM [...]
--- OUTSIDE RECORDS SUMMARY | 2025-04-22 14:36 | XMS_ITS | Encounter Summary ---
Author Organization [employer] ([place], [place], [place], [place], [place]) Address [address] [place] [address] Care Team Providers Care Powder Guard Name Role Phone Unavailable Primary Care Provider Unavailabl e Encounter Details Date Type Department Care Team (Late st Contact Info) Description 07/12/2018 Transcribed Document [facility] Radiology [address] [place] [address] Provider, Layla Acosta MD Social [...]
--- OUTSIDE RECORDS SUMMARY | 2025-04-22 14:36 | XMS_ITS | Encounter Summary ---
Author Organization [employer] ([place], [place], [place], [place], [place]) Address [address] [place] [address] Care Team Providers Care Community Relations Officer Name Role Phone Unavailable Primary Care Provider Unavailabl e Encounter Details Date Type Department Care Team (Late st Contact Info) Description 07/12/2018 Transcribed Document [facility] Radiology 1 [place] [address] ProviderLayla MD Social History Tobacco [...] Health System Karla Rojo MD - 07/12/2018 7:06 PM EDT Discharge Instructions Entered On: 07/12/2018 18:07 EDT Performed On: 07/12/2018 18:06 EDT by Jessica Cote, Case Management-Coat Presser DC Instructions HWD Medical Equipment For Home Use : BLUEGRASS BRACING FOR CPM RENTAL Home Health Services : [facility] [phone] Jessica Cote, Case Management-Coat Presser - 07/12/2018 18:06 EDT documented in this encounter Plan of Treatment Not on file documented as of this encounter Visit Diagnoses Not on filedocumented in this encounter
--- OUTSIDE RECORDS SUMMARY | 2025-04-22 14:36 | XMS_ITS | Encounter Summary ---
Author Organization [employer] ([place], [place], [place], [place], [place]) Address [address] [place] [address] Care Team Providers Care Typesetter Perforator Operator Name Role Phone Unavailable Primary Care Provider Unavailabl e Encounter Details Date Type Department Care Team (Late st Contact Info) Description 07/12/2018 Transcribed Document [facility] Radiology 1 [place] [address] Provider, Layla Acosta MD [...] Notes * Cerner Conversion Note - [facility] Karla Rojo MD - 07/12/2018 3:10 PM EDT [...] TIA (transient ischemic attack) / SNOMED CT 721868354 / Confirmed HTN (hypertension) / SNOMED CT 5811182289 / Confirmed Hyperlipidemia / SNOMED CT 00606073 / Confirmed Fibromyalgia / SNOMED CT 544941933 / Confirmed Circulation problem / SNOMED CT 9240035933 / Confirmed Diabetes / SNOMED CT 930311634 / Confirmed Depression / SNOMED CT 83480172 / Confirmed CAD (coronary artery disease) / SNOMED CT 96124360 / Confirmed At risk for sleep apnea / IMO 84320833 / Confirmed Arthritis / SNOMED CT 3724963 / Confirmed Anxiety / SNOMED CT 75052818 / Confirmed, Active Problems (11) Anxiety Arthritis [...] 32 (JUL 11 18:00) SBP 115 (JUL 12:) 102 (JUL 11 16:03) H 144 (JUL [...]
--- OUTSIDE RECORDS SUMMARY | 2025-04-22 14:36 | XMS_ITS | Encounter Summary ---
Author Organization [employer] ([place], [place], [place], [place], [place]) Address [address] [place] [address] Care Team Providers Care Comparative Sociology Professor Name Role Phone Unavailable Primary Care Provider Unavailabl e Encounter Details Date Type Department Care Team (Late st Contact Info) Description 07/12/2018 Transcribed Document [facility] Radiology [address] [place] [address] ProviderLayla MD Social History Tobacco [...] * Cerner Conversion Note - [facility] Karla Rojo MD [...]
--- OUTSIDE RECORDS SUMMARY | 2025-04-22 14:36 | XMS_ITS | Encounter Summary ---
Author Organization [employer] ([place], [place], [place], [place], [place]) Address [address] [place] [address] Care Team Providers Care Aircraft Structure Mechanic Name Role Phone Unavailable Primary Care Provider Unavailabl e Encounter Details Date Type Department Care Team (Late st Contact Info) Description 07/12/2018 Transcribed Document [facility] Radiology 1 [place] [address] Provider, Layla Acosta MD Social [...] LOW 07/12/2018 05:06 Creatinine Level 2.74 mg/dL ID 07/12/2018 05:06 eGFR 21 mL/min/1.73m2 LOW 07/12/2018 05:06 Bun/Creatinine 11.3 07/12/2018 05:06 Sodium Level 133 mmol/L LOW 07/12/2018 05:06 Potassium Level 5.7 mmol/L ID 07/12/2018 05:06 Chloride Level 104 mmol/L 07/12/2018 05:06 Carbon Dioxide Level 21 mmol/L 07/12/2018 05:06 Anion Gap 14 07/12/2018 05:06 Blood Urea Nitrogen 31 mg/dL ID 07/12/2018 05:06 Glucose Level 366 mg/dL ID 07/12/2018 05:06 Calcium Level 8.2 mg/dL LOW [...]
--- OUTSIDE RECORDS SUMMARY | 2025-04-22 14:36 | XMS_ITS | Encounter Summary ---
Author Organization [employer] ([place], [place], [place], [place], [place]) Address [address] [place] [address] Care Team Providers Care Last Scourer Name Role Phone Unavailable Primary Care Provider Unavailabl e Encounter Details Date Type Department Care Team (Late st Contact Info) Description 07/12/2018 Transcribed Document [facility] Radiology [address] [place] [address] Provider, Layla Acosta MD Social [...]
--- OUTSIDE RECORDS SUMMARY | 2025-04-22 14:36 | XMS_ITS | Encounter Summary ---
Author Organization [employer] ([place], [place], [place], [place], [place]) Address [address] [place] [address] Care Team Providers Care Laborer Brush Clearing Name Role Phone Unavailable Primary Care Provider Unavailabl e Encounter Details Date Type Department Care Team (Late st Contact Info) Description 07/13/2018 Transcribed Document [facility] Radiology [address] [place] [address] Provider, Layla Acosta MD Social [...] Miscellaneous Notes * Cerner Conversion Note - [facility] Karla Rojo MD - 07/13/2018 11:49 AM EDT [facility] [address], [place] [address] Patient Copy Patient Information: Name: FLOR LUX Current Date: 07/13/2018 10:49:37 : 1945 Patient Address: [place] [address] Patient Attending Physician: RFEDERIC ADAMS MD-ORT Primary Care Provider: RODO SANFORD MD-[facility] Primary Care Provider Discharge Diagnosis: Weakness Weight on Admission: 175 lb, 0 oz Comment: Follow-up Instructions: With: Address: When: Follow up with specialty services Within 2 to 3 days Comments: Nephrology With: Address: When: Follow up with primary care provider Within 2 to 3 days With: Address: When: DEYSI MEJIA [address] [place] [address] Kollabora (1) 11:15 AM Comments: Appointment has been made Discharge Instructions: Medical Equipment for Home Use: [employer] BR[employer]ING FOR CPM RENTAL Home Health Services: Spontaneously [phone] Immunizations Documented During Stay: No Immunizations Found [...] Barley. Bulgur wheat. Millet. Bran muffins. Popcorn. Omro wafer crackers. ?? Vegetables Sweet potatoes. Spinach. Kale. Artichokes. Cabbage. Broccoli. Green peas. Carrots. Squash. ?? Fruits Berries. Pears. Apples. Oranges. Avocados. Prunes and raisins. Dried figs. ?? Meats and Other Protein Sources Fabens, kidney, hoff, and soy beans. Split peas. [...] alphonso has 11 g of protein. ?? [place] seeds ??? 1 oz has 5.5 g [...] floor. ?? Place frequently used items in jwuw-mb-ofrdh places ?? Keep electrical cables out of [...] ? Using the bathroom. ? Using household professor of philosophy or toxic chemicals. ? Touching or taking [...] may report side effects to FDA at 1-037-NVZ-9244. What other drugs will affect gabapentin? Taking gabapentin with other drugs that make you sleepy can worsen this effect. Ask your doctor before taking a sleeping pill, narcotic medication, muscle relaxer, or medicine for anxiety, depression, or seizures. Other drugs may interact with gabapentin, including prescription and ebbq-gfy-foehegr medicines, vitamins, and herbal products. Tell your [...] to ensure that the information provided by [employer]. ('[employer]') is accurate, up-to-date, and complete, but no guarantee is made to that effect. Drug information contained herein may be time sensitive. [employer] information has been compiled for use by healthcare practitioners and consumers in the [place] and therefore [employer] does not warrant that uses outside of the [place] are appropriate, unless specifically indicated otherwise. [employer]'s drug information does not endorse drugs, diagnose patients or recommend therapy. [employer] drug information is an informational resource designed [...] effective or appropriate for any given patient. [employer] does not assume any responsibility for any aspect of healthcare administered with the aid of information [employer] provides. The information contained herein is not intended to cover all possible uses, directions, precautions, warnings, drug interactions, allergic reactions, or adverse effects. If you have questions about the drugs you are taking, check with your doctor, nurse or pharmacist. Copyright 6962-3305 [employer]. Version: 14.01. Revision Date: 02/08/2017. oxycodone (ox [...] The extended-release form of oxycodone is for ucoywj-hnk-gtjyy treatment of pain and should not be [...] against the law. Stop taking all other iqliyh-tpi-vzcoo narcotic pain medicines when you start taking [...] may report side effects to FDA at 5-334-HXZ-8835. What other drugs will affect oxycodone? You [...] may affect oxycodone. This includes prescription and jphn-wyn-pxzainy medicines, vitamins, and herbal products. Not all [...] to ensure that the information provided by [employer]. ('[employer]') is accurate, up-to-date, and complete, but no guarantee is made to that effect. Drug information contained herein may be time sensitive. [employer] information has been compiled for use by healthcare practitioners and consumers in the [place] and therefore [employer] does not warrant that uses outside of the [place] are appropriate, unless specifically indicated otherwise. [employer]'s drug information does not endorse drugs, diagnose patients or recommend therapy. [employer] drug information is an informational resource designed [...] effective or appropriate for any given patient. [employer] does not assume any responsibility for any [...] with your doctor, nurse or pharmacist. Copyright 7598-6113 [employer]. Version: 13.02. Revision Date: 03/29/2018. tramadol (TRAM [...] extended-release form of this medicine is for bzizsb-zvh-lmznw treatment of pain. This form of tramadol [...] against the law. Stop taking all other izoscx-fhm-rqdsg narcotic pain medications when you start taking [...] may report side effects to FDA at 6-845-TWH-3960. What other drugs will affect tramadol? You [...] may affect tramadol. This includes prescription and rbxz-yoy-cpvtfcf medicines, vitamins, and herbal products. Not all [...] to ensure that the information provided by [employer]. ('[employer]') is accurate, up-to-date, and complete, but no guarantee is made to that effect. Drug information contained herein may be time sensitive. [employer] information has been compiled for use by healthcare practitioners and consumers in the [place] and therefore [employer] does not warrant that uses outside of the [place] are appropriate, unless specifically indicated otherwise. [employer]'s drug information does not endorse drugs, diagnose patients or recommend therapy. [facility] drug information is an informational resource designed [...] with your doctor, nurse or pharmacist. Copyright 4122-1495 [employer] [facility] Network[employer]. Version: 18.02. Revision Date: 03/29/2018. CIGARETTE SMOKING: The facts are clear, cigarette smoking will shorten your life. Smoking can cause many illnesses along the way. As a healthcare provider, we recommend that you stop smoking. Assistance with quitting is available by contacting 1-133-QZLK-NOW. This is a free resource providing counseling, [...] Be sure to sign up for the [employer] patient portal, which gives you 22/11 access to your medical information ??? including these discharge instructions ??? using your computer, smartphone, or tablet. Just go to [employer] to get started. Questions? Call . [facility] would like to thank you for allowing us to assist you with your healthcare needs. MACI Benjamin RITA MOR, (or motor vehicle representative) have received the above patient education materials/instructions and have verbalized understanding: Patient Signature _ Date/Time Patient Data Analysis Intern Signature (if needed) Date/Time Clinician/Hospital Data Analysis Intern Signature (if needed) Date/Time documented in this encounter Plan of Treatment Not on file documented as of this encounter Visit Diagnoses Not on filedocumented in this encounter
--- OUTSIDE RECORDS SUMMARY | 2025-04-22 14:36 | XMS_ITS | Encounter Summary ---
Author Organization [employer] ([place], [place], [place], [place], [place]) Address [address] [place] [address] Care Team Providers Care Front Office Attendant Name Role Phone Unavailable Primary Care Provider Unavailabl e Encounter Details Date Type Department Care Team (Late st Contact Info) Description 07/12/2018 Transcribed Document [facility] Radiology [address] [place] [address] Provider, Layla Acosta MD Social [...]
--- OUTSIDE RECORDS SUMMARY | 2025-04-22 14:36 | XMS_ITS | Encounter Summary ---
Author Organization [employer] ([place], [place], [place], [place], [place]) Address [address] [place] [address] Care Team Providers Care Mushroom Picker Name Role Phone Unavailable Primary Care Provider Unavailabl e Encounter Details Date Type Department Care Team (Late st Contact Info) Description 07/12/2018 Transcribed Document [facility] Radiology [address] [place] [address] Provider, Layla Acosta MD Social [...] [facility] Rojo MD - 07/12/2018 12:38 PM EDT Patient: FLOR LUX Age: 72 [...] right TKA. High risk and complex pt #[id number] documented in this encounter Plan of Treatment Not on file documented as of this encounter Visit Diagnoses Not on filedocumented in this encounter
[2025-04-22 15:07] LABS: Lactate Venous 1.6 mmol/L (0.4-2.0); VBG HCO3 26.9 mmol/L (23-30); VBG PH 7.33 mmol/L (7.31-7.41); VBG PO2 41.2 mmol/L (28-40)
[2025-04-22 15:12] LABS: VBG PCO2 52.1 mmol/L (35-51)
[2025-04-22 15:15] LABS: Hematocrit 30.8 % (37.0-47.0); Hemoglobin 9.4 g/dL (12.2-16.2); Immature Granulocytes % 0.5 %; Mean Corpuscular HGB Conc 30.5 g/dL (31.8-35.4); Mean Corpuscular Hemoglobin 24.7 pg (27.0-31.2); Mean Corpuscular Volume 81.1 fl (81-99); Nucleated Red Blood Cells % 0 %; Platelet Count 220 K/mm3 (142-424); Red Blood Count 3.80 M/mm3 (4.20-5.40); Red Cell Distribution Width-SD 50.3 fL; White Blood Count 14.7 K/mm3 (4.8-10.8)
--- NOTE | 2025-04-22 15:15 | CT_ITS ---
PROCEDURE INFORMATION: Exam: CTA Chest With Contrast Exam date and time: 04/22/2025 3:54 PM Age: 79 years old Clinical indication: Shortness of breath; Additional info: SOA, HX of lung malignancy TECHNIQUE: Imaging protocol: Computed tomographic angiography of the chest with contrast. Exam focused on the arteries. 3D rendering (Not supervised by radiologist): MIP and/or 3D reconstructed images were created by the technologist. Radiation optimization: All CT scans at this facility use at least one of these dose optimization techniques: automated exposure control; mA and/or kV adjustment per patient size (includes targeted exams where dose is matched to clinical indication); or iterative reconstruction. Contrast material: ISOVUE; Contrast volume: 70 ml; Contrast route: INTRAVENOUS (IV); COMPARISON: CT CHEST WO CON 04/23/2024 9:58 AM FINDINGS: Pulmonary arteries: No pulmonary embolism is visualized. Limited evaluation of the right lower lobe segmental and subsegmental pulmonary arteries due to suboptimal opacification and motion artifact. There is mass effect on the main pulmonary artery from the anterior mediastinal mass. Can not exclude invasion. 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 Aorta: Calcified and noncalcified atherosclerotic plaque of the aortic arch. Lungs: There is debris in the damian and left mainstem bronchus with complete opacification of the more distal left lung airways. Complete consolidation/atelectasis of the left lung. Right upper lobe nodule measures 2.3 x 2.0 cm, increased in size since prior CT on 04/23/2024 (previously 1.4 x 1.5 cm). Pleural spaces: Large left pleural effusion. No pneumothorax. Heart: Mass associated with the lingula extending and anterior mediastinum measuring approximately 6.3 x 7.0 x 5.8 cm, inseparable from and likely invading the pericardium. The heart is enlarged. Nodular pericardial thickening (series 6, image 73). No pericardial effusion. Esophagus: There is debris in the esophagus Lymph nodes: No obvious adenopathy. Spleen: Ill-defined patchy areas of hypoattenuation in the spleen Adrenal glands: Nonspecific left adrenal thickening, similar to prior exam. Right adrenal gland is unremarkable. Kidneys: 4.4 cm right renal cyst. Smaller left renal cysts and hypoattenuating foci too small to characterize. Bones/joints: Left reverse total shoulder arthroplasty. No acute fracture or dislocation. Degenerative changes of the thoracic spine. No lytic or blastic osseous lesions. Soft tissues: Unremarkable. IMPRESSION: 1. 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 Can not exclude invasion of the main pulmonary artery. No pulmonary embolism is visualized. 2. Pericardial nodules suspicious for metastatic disease. 3. 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 Complete left upper and lower lobar atelectasis. 4. Large left pleural effusion. 5. Increased size of right upper lobe nodule. 6. Patchy hypoattenuation of the spleen suspicious for metastatic disease. 7. 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 Critical finding reported. Addendum will be added once provider is contacted. COMMENTS: Consistent with the [employer]'s Incidental Findings Committee white paper (J Am Junaid Radiol 2018): Any incidental renal lesion less than 1 cm or classified as too small to characterize, or any incidental cystic renal lesion characterized as simple-appearing, is likely benign. No follow-up imaging is recommended for these lesions per consensus recommendations based on imaging criteria.
[2025-04-22 15:24] LABS: INR 1.16 (0.9-1.1); Prothrombin Time 12.7 seconds (10.1-12.5)
[2025-04-22 15:29] LABS: Alanine Aminotransferase 10 U/L (12-78); Albumin Level 3.0 g/dl (3.5-5.0); Albumin/Globulin Ratio 0.8 (1.1-1.8); Alkaline Phosphatase 135 U/L (38-126); Anion Gap 10.8 mEq/L (5-15); Aspartate Amino Transferase 26 U/L (14-36); Bilirubin,Total 0.6 mg/dl (0.2-1.3); Blood Urea Nitrogen 31 mg/dl (7-17); Calcium 9.8 mg/dl (8.4-10.2); Carbon Dioxide 27 mmol/L (22.0-30.0); Chloride 102 mmol/L (98-107); Creatinine Clearance Estimated 18 mL/min (50-200); Creatinine,Serum 2.10 mg/dl (0.52-1.04); Estimated Glomerular Filt Rate 23 ml/min (>60); GFR (African American) 28 ML/MIN (>60); Globulin 3.8 g/dL (1.3-3.2); Glucose 116 mg/dl (74-100); Lipase 15 U/L (23-300); Magnesium 2.1 mg/dl (1.6-2.3); Potassium 4.8 mmoL/L (3.5-5.1); Sodium 135 mmol/L (136-145); Total Protein,Serum 6.8 g/dl (6.3-8.2)
[2025-04-22] MEDS: 0.9 % SODIUM CHLORIDE 1000ML 1,000 ML 999 ML IV (15:38)
[2025-04-22 15:42] LABS: Adenovirus,PCR Not Detected (NotDetected); Chlamydophila Pneumoniae, PCR Not Detected (NotDetected); Coronavirus 19, PCR Not Detected (NotDetected); Coronovirus HKU1,PCR Not Detected (NotDetected); Influenza A, PCR Not Detected (NotDetected); Influenza AH1, 2009 Not Detected (NotDetected); Influenza AH1, PCR Not Detected (NotDetected); Influenza AH3,PCR Not Detected (NotDetected); Influenza B, PCR Not Detected (NotDetected); Mycoplasma Pneumoniae, PCR Not Detected (NotDetected); Parainfluenza 1, PCR Not Detected (NotDetected); Parainfluenza 2, PCR Not Detected (NotDetected); Parainfluenza 3, PCR Not Detected (NotDetected); Parainfluenza 4, PCR Not Detected (NotDetected)
[2025-04-22 15:42] LABS: NT Pro Brain Natriuretic Pep. 1460 pg/mL (0-450)
[2025-04-22 15:48] LABS: Troponin I < 0.01 ng/ml (0.00-0.034)
[2025-04-22] MEDS: IOPAMIDOL-370 (76%);100ML BOTTLE 70 ML IV (15:57)
[2025-04-22] MEDS: SODIUM CHLORIDE 0.9% 10ML SYR (RAD ONLY) 10 ML IV (15:57)
[2025-04-22] MEDS: 0.9 % SODIUM CHLORIDE 50 ML VIAL IV (15:57)
--- NOTE | 2025-04-22 17:42 | EXP.HP ---
History of Present Illness *Admission Date: 04/22/25 *Reason for visit:: dyspnea, weakness *History of present illness: Ms. Arroyo is a 79-year-old female with multiple comorbidities who resides at [facility] and rehab. They have been treating her for generalized weakness and pneumonia for the past few days. Weakness has gotten worse and had some increased confusion per residential report. EMS brought her to the ER for further evaluation. On arrival, history obtained more from family than patient. The nursing has been treating her for the past 5 to 7 days with Levaquin. Unfortunately she has been getting worse per their report. She is overall weak with some increased confusion. Currently on 3 L nasal cannula, normally wears 2 L nasal cannula. Has had some decreased p.o. intake. Cough has been productive. Patient is afebrile on arrival. Workup including CTA of the chest obtained. Found to have elevated white count of 14. CTA of the chest showing complete whiteout of left lung field. Large effusion with collapse of left lung and obstruction of left main bronchus. Known history of lung mass for which she did not want to pursue any treatment a year ago. Findings most consistent with obstructive pneumonia. Pulmonology consulted who recommended antibiotics, thoracentesis, admission and evaluation in the morning. Medicine consulted for admission. On my evaluation, patient is pleasant. Denies any pain. Is very agreeable. Does not appear in any acute distress. She is quite weak. Denies nausea or vomiting or chest pain. [facility] Disclaimer: The information contained in this section may have been updated after the patient was seen, as this information can be updated by other users. Medical History (Updated 04/22/25 @ 18:25 by Gen Gomez MD) Diabetes Seizure disorder Lung mass Duodenal erosion GI bleed History of vaginal delivery Hemiparesis affecting right side as late effect of cerebrovascular accident Anemia Knee osteoarthritis GERD (gastroesophageal reflux disease) Abnormal radiologic finding of lung field Anxiety Pain in right wrist Right radial fracture Osteoarthritis History of TIA (transient ischemic attack) Elbow fracture, right Fracture of wrist TIA (transient ischemic attack) Bilateral carotid bruits PAD (peripheral artery disease) HLD (hyperlipidemia) CAD (coronary artery disease) HTN (hypertension) Carotid artery disease Surgical History History of cataract surgery Hx of shoulder surgery History of total knee arthroplasty History of left-sided carotid endarterectomy Family History No significant family history Social History Smoking Status: Unknown if ever smoked second hand exposure: Yes alcohol intake: never counseling provided: none substance use type: denies use current occupational status: retired Travel in the last 8 weeks?: None household members: spouse housing: house current occupational exposures/hazards: No caffeine: Yes Have you lived/traveled outside [place] in past 30 days?: No Contact w/someone who lives/traveled outside US past 30 days?: No Exposure to someone with infectious disease in past 14 days?: No Do you have a fever (greater than 100.4 F or 38 C)?: No Have you tested positive for COVID-19?: No Exposed to someone with COVID-19 in past 14 days?: No Do you have a sore throat?: No Do you have a cough?: No Do you have any weakness?: No Do you have any diarrhea?: No Are you experiencing any unusual bleeding?: No Do you have any muscle aches/pain?: No Do you have any abdominal pain?: No Are you experiencing loss of taste or smell?: No Other Medical History Have you received the Flu Vaccine for this season: No Have you received the Pneumonia Vaccine: No (unknown) Review of Systems Review of Systems Review of systems (narrative): 14 point review of systems performed, pertinent positives and negatives as per HPI Meds Home Medications and Allergies Home Medications ?Medication ?Instructions ?Recorded ?Confirmed ?Type atorvastatin 40 mg tablet 40 mg PO HS 30 days #30 tabs 04/26/24 10/23/24 Rx potassium chloride 20 mEq 40 meq (2 x 20 mEq) PO DAILY 30 04/26/24 10/23/24 Rx tablet,extended days #60 tabs release(part/cryst) (Klor-Con M) sertraline 100 mg tablet 100 mg PO DAILY 30 days #30 tabs 04/26/24 10/23/24 Rx lactulose 10 gram/15 mL oral 30 ml PO BIDP PRN Constipation 06/07/24 10/23/24 History solution magnesium 200 mg tablet 400 mg PO DAILY 06/07/24 10/23/24 History ferrous sulfate 325 mg (65 mg 325 mg PO BID 06/08/24 10/23/24 History iron) tablet multivitamin 1 tab PO DAILY 06/08/24 10/23/24 History pantoprazole 40 mg tablet,delayed 40 mg PO BID 30 days #60 tabs 06/08/24 10/23/24 Rx release acetaminophen 500 mg tablet 500 mg PO Q6H PRN 07/31/24 10/23/24 History levetiracetam 500 mg tablet 500 mg PO BID 07/31/24 10/23/24 History (Keppra) loperamide 2 mg capsule 2 mg PO Q6H PRN 07/31/24 10/23/24 History cranberry 500 mg capsule 500 mg PO DAILY 09/19/24 10/23/24 History estradiol 0.01% (0.1 mg/gram) 1 g vaginal WEEKLY 09/19/24 10/23/24 History vaginal cream (Estrace) buspirone 5 mg tablet 5 mg PO BID 10/23/24 10/23/24 History insulin glargine 100 unit/mL (3 10 unit SQ HS 10/23/24 10/23/24 History mL) subcutaneous pen (Lantus Solostar U-100 Insulin) insulin lispro 100 unit/mL 1 sliding scale dose SQ 10/23/24 10/23/24 History subcutaneous pen (Humalog KwikPen USEASDIRECTD (U-100) Insulin) New Prescriptions to Start Prescriptions: Allergies Allergy/AdvReac Type Severity Reaction Status Date / Time latex (LATEX) Allergy Intermediate I-ITCHING Verified 10/23/24 15:39 Penicillins (PENICILLINS) Allergy Mild I-RASH Verified 10/23/24 15:39 Sulfa (Sulfonamide Allergy Unknown I-RASH Verified 10/23/24 15:39 Antibiotics) (SULFA (SULFONAMIDE ANTIBIOTICS)) Tetanus Vaccines and Toxoid Allergy Unknown Verified 10/23/24 15:39 (TETANUS VACCINES & TOXOID) Exam Data for Last 24 hours Vital signs and Labs for Last 24 Hours: Temp Pulse Resp BP Pulse Ox O2 Del Method O2 Flow Rate 98.6 F 74 23 102/46 L 99 Nasal Cannula 3 04/22/25 13:47 04/22/25 16:30 04/22/25 16:30 04/22/25 16:30 04/22/25 16:30 04/22/25 13:47 04/22/25 13:47 Laboratory Results - last 24 hr 04/22/25 15:00: WBC 14.7 H, RBC 3.80 L, Hgb 9.4 L, Hct 30.8 L, MCV 81.1, MCH 24.7 L, MCHC 30.5 L, RDW 17.2, Plt Count 220, MPV 10.6 H, Neut % (Auto) 81.8 H, Lymph % (Auto) 11.6, [place] % (Auto) 4.2, Eos % (Auto) 1.7, Baso % (Auto) 0.2, Neut # (Auto) 12.0 H, Lymph # (Auto) 1.7, [place] # (Auto) 0.6, Eos # (Auto) 0.3, Baso # (Auto) 0.0, PT 12.7 H, INR 1.16 H, VBG pH 7.33, VBG pCO2 52.1 H, VBG pO2 41.2 H, VBG HCO3 26.9, VBG Total CO2 28.5 H, VBG O2 Saturation 73.1 H, VBG Base Excess 1.0, VBG Lactic Acid 1.6, Sodium 135 L, Potassium 4.8, Chloride 102, Carbon Dioxide 27, Anion Gap 10.8, BUN 31 H, Creatinine 2.10 H, Estimated Creat Clear 18, Estimated GFR 23 L, Est GFR ( Amer) 28 L, Glucose 116 H, Calcium 9.8, Magnesium 2.1, Total Bilirubin 0.6, AST 26, ALT 10 L, Alkaline Phosphatase 135 H, Troponin I < 0.01, NT-Pro-B Natriuret Pep 1460 H, Total Protein 6.8, Albumin 3.0 L, Globulin 3.8 H, Albumin/Globulin Ratio 0.8 L, Lipase 15 L 04/22/25 15:10: Chlamy pneumoniae PCR Not detected, Adenovirus (PCR) Not detected, B. pertussis DNA (PCR) Not detected, Coronavirus OC43 (PCR) Not detected, Coronavirus HKU1 (PCR) Not detected, Coronavirus 229E (PCR) Not detected, SARS-CoV-2 (PCR) Not detected, Coronavirus NL63 (PCR) Not detected, Human Metapneumovir PCR Not detected, Influenza A (H1) PCR Not detected, Influ A (H1N1/09) PCR Not detected, Influenza A (H3) PCR Not detected, Influenza Type A (PCR) Not detected, Influenza Type B (PCR) Not detected, M. pneumoniae (PCR) Not detected, Parainfluenza 1 (PCR) Not detected, Parainfluenza 2 (PCR) Not detected, Parainfluenza 3 (PCR) Not detected, Parainfluenza 4 (PCR) Not detected, RSV (PCR) Not detected, Entero/Rhino (PCR) Not detected 04/22/25 15:35: Lactate 0.9 I & O for Last 24 hours: Intake & Output 04/19/25 04/20/25 04/21/25 04/22/25 23:59 23:59 23:59 23:59 Weight 53.07 kg Constitutional Constitutional: mild distress, average body habitus, chronically ill appearing and cooperative *Routine HEENT Exam Head: Present normocephalic Eye: Present EOMI and PERRL ENT: Present mucous membranes moist *Routine Neck Exam Neck: Present supple; Absent lymphadenopathy *Routine Respiratory Exam Respiratory: Absent rhonchi, wheezes or crackles Comments: Breath sounds heard in right hemithorax, absent in the left side. *Routine Cardiovascular Exam Cardiovascular: Present RRR *Routine Abdominal Exam Abdominal: Present soft and normoactive bowel sounds; Absent tenderness or distended *Routine Rectal Exam Rectal:: deferred *Routine Genitalia Exam Genitalia:: deferred *Routine Extremities Exam Extremities: Absent cyanosis, clubbing or edema Comments: Right lower extremity strength 1/5. Right upper extremity 4/5. Thin lower extremities *Routine Skin Exam Skin: Present warm; Absent rash *Routine Neurological Exam Neurological: Present alert; Absent altered mental status Comments: Right sided weakness, moving left side. Oriented to person and place Assessment and Plan *Assessment and plan (1) Postobstructive pneumonia: Status: Acute Category: Medical Code(s): J18.9 - Pneumonia, unspecified organism (2) Lung mass: Problem Comment: patient and family have declined further workup Status: Chronic Category: Medical Code(s): R91.8 - Other nonspecific abnormal finding of lung field (3) Pleural effusion: Status: Acute Category: Medical Code(s): J90 - Pleural effusion, not elsewhere classified (4) Acute kidney injury: Status: Acute Category: Medical Code(s): N17.9 - Acute kidney failure, unspecified (5) Seizure disorder: Status: Chronic Category: Medical Code(s): G40.909 - Epilepsy, unspecified, not intractable, without status epilepticus (6) Hemiparesis affecting right side as late effect of cerebrovascular accident: Status: Chronic Category: Medical Code(s): I69.351 - Hemiplegia and hemiparesis following cerebral infarction affecting right dominant side (7) GERD (gastroesophageal reflux disease): Status: Chronic Category: Medical Code(s): K21.9 - Gastro-esophageal reflux disease without esophagitis (8) Diabetes mellitus type 2, controlled: Status: Chronic Category: Medical Code(s): E11.9 - Type 2 diabetes mellitus without complications (9) CAD (coronary artery disease): Status: Chronic Qualifiers: Coronary Disease-Associated Artery/Lesion type: redding artery [place] vs. transplanted heart: redding heart Associated angina: without angina Qualified Code(s): I25.10 - Atherosclerotic heart disease of redding coronary artery without angina pectoris Category: Medical Code(s): I25.10 - Atherosclerotic heart disease of redding coronary artery without angina pectoris (10) HTN (hypertension): Status: Chronic Qualifiers: Hypertension type: essential hypertension Qualified Code(s): I10 - Essential (primary) hypertension Category: Medical Code(s): I10 - Essential (primary) hypertension (11) Tobacco dependence syndrome: Status: Chronic Category: Medical Code(s): F17.200 - Nicotine dependence, unspecified, uncomplicated (12) Carotid artery disease: Status: Chronic Qualifiers: Laterality: bilateral Carotid artery disease type: stenosis Qualified Code(s): I65.23 - Occlusion and stenosis of bilateral carotid arteries Category: Medical Code(s): I77.9 - Disorder of arteries and arterioles, unspecified (13) Anemia: Status: Acute Category: Medical Code(s): D64.9 - Anemia, unspecified (14) Anxiety: Status: Acute Category: Medical Code(s): F41.9 - Anxiety disorder, unspecified (15) Declining functional status: Status: Acute Category: Medical Code(s): R53.81 - Other malaise (16) PAD (peripheral artery disease): Status: Chronic Category: Medical Code(s): I73.9 - Peripheral vascular disease, unspecified (17) Chronic kidney disease: Status: Chronic Qualifiers: Chronic kidney disease stage: unspecified stage Qualified Code(s): N18.9 - Chronic kidney disease, unspecified Category: Medical Code(s): N18.9 - Chronic kidney disease, unspecified Plan Flor Arroyo is a 79-year-old female with a medical history significant for chronic tobacco smoker, type 2 diabetes, CVA with right sided residual deficits, seizure disorder, hypertension, CAD, carotid artery disease, and known lung mass. Presents to the ER with concern for increased weakness and oxygen requirement. Workup shows complete whiteout of left hemithorax and obstruction in left mainstem bronchus along with pleural effusion. Discussed case with ER physician, request admission for further treatment of suspected pneumonia, pleural effusion and goals of care discussion about lung mass. I agreed and decided to admit for further care. Pulmonology consulted to evaluate in the morning. Plan for further goals of care. Highly suspicious for progressing cancer causing obstruction. Suspect postobstructive pneumonia. Patient's condition serious, prognosis poor. Problems addressed as follows: Postobstructive pneumonia Enlarging lung mass highly suspicious for cancer with suspected metastases -CT of chest per my review with large left-sided effusion, complete whiteout of left lung, mass extruding from left mainstem bronchus into trachea. Mass seen on CT of chest a year ago and discussion at that time with no desire to proceed with further workup per patient. She has continued to smoke daily. Highly suspicious that what appears to be pneumonia is obstructive. Thoracentesis performed in the ER. Pleural fluid along with blood cultures obtained and pending - Will evaluate cytology from pleural fluid - Pulmonology consulted to evaluate in the morning. - Continue Levaquin 750 mg daily - Appears comfortable on 3 L oxygen at this time in no acute distress. Goal sats greater 90%. Wean as tolerated baseline oxygen is 2 L - White count elevated at 14.7, neutrophil predominant at 81%. Hemoglobin low at 9.4. Platelets 220. - VBG with normal pH of 7.3, pCO2 of 52. PaO2 of 41. High for VBG per our assay. -Full respiratory panel negative -Sputum culture pending [place]: Creatinine 2.1, previous level of 1.5 in October. Has had poor intake. Suspect prerenal in the setting of pneumonia and weakness. Will administer 1 L LR. - Repeat CBC, CMP, magnesium ordered for the morning. - BNP elevated at 1400. Will hold on diuresis at this time. Does not have peripheral edema. Suspect this may be related to mass effect from lingular mass seen on CT as it is potentially occluding left pulmonary artery as well as invading pericardial sac. # History of frontoparietal stroke April 2024 #Right lower, upper extremity weakness, chronic #Functional decline, inability to take care of herself #[facility] -CT in April 2024 showed acute/subacute left frontoparietal stroke, neck CTA shows complete occlusion of the cervical left ICA and moderate stenosis of the proximal right ICA. MRI obtained that same time confirming acute and subacute left frontotemporal stroke. -Stopped antiplatelet therapy earlier this year due to GI bleed. -No new complaints today. Fully dependent on nursing care for most ADLs. Resides at [facility] long-term #Type 2 diabetes: Sliding scale insulin with fingersticks ACHS. Last A1c in September of 8.0. Repeat level ordered and pending Chronic conditions: #Hyperlipidemia #Hypertension #Depression/anxiety ? Continue Zoloft 100 mg daily and BuSpar 5 mg twice daily. Holding statin Tobacco use disorder: Goals of care: - Continues to smoke despite all of the diagnoses above. This is a quality measure for this patient. She wants to be comfortable and do activities she enjoys. Nicotine patch while admitted. Will have further goals of care discussions. Has previously discussed hospice and been open to it but wanted to try therapy a year ago. Does not appear to have had significant improvement in obtaining independence or increased mobility. In light of progression of disease above, will further goals of care with family. DNR/DNI Regular diet Holding anticoagulation in anticipation of procedure
--- NOTE | 2025-04-22 19:08 | XR_ITS ---
PROCEDURE INFORMATION: Exam: XR Chest Exam date and time: 04/22/2025 7:22 PM Age: 79 years old Clinical indication: Device placement; Chest tube; Additional info: Repeat after thoracentesis TECHNIQUE: Imaging protocol: Radiologic exam of the chest. Views: 1 view. COMPARISON: CT ANGIO CHEST PE PROTOCOL 04/22/2025 3:54 PM FINDINGS: Tubes, catheters and devices: A pigtail catheter projects over the left midlung. Lungs: Lingular and right apical nodular opacities are again visualized. Pleural spaces: Large left pleural effusion is decreased since prior CT from earlier same day. Small residual left pleural effusion with adjacent atelectasis. No pneumothorax. Heart/Mediastinum: Heart size can not be accurately assessed in this projection. Diaphragm: Left hemidiaphragm elevation. Bones/joints: Left reverse total shoulder arthroplasty. IMPRESSION: Decreased large left pleural effusion status post thoracentesis. No pneumothorax.
[2025-04-22 19:18] LABS: Appearance,Body Fld. Hazy; Source, Body Fld. PLEURAL
[2025-04-22 19:19] LABS: Volume,Body Fld. 24 mL
[2025-04-22 19:20] LABS: RBC,Body Fluid 1 cells/uL (< 10 X 10^3); TNC,Body Fluid 252 cells/uL (< 1000)
--- NOTE | 2025-04-22 19:25 | PC.NURSE ---
notified HS of admission to step down for lung mass and pleural effusion
[2025-04-22 19:38] LABS: Polynuclear WBC,Body Fluid 19 %
[2025-04-22 19:39] LABS: Mononuclear WBCs,Body Fluid 81 %
[2025-04-22 19:46] LABS: Microscopic, Urine URINE MICROSCOPIC (MICROSCOPIC)
[2025-04-22 19:49] LABS: Bilirubin,Urine Negative (Negative); Color,Urine YELLOW (Yellow); Glucose,Urine (UA) Negative (Negative); Ketones,Urine Negative (Negative); Leukocyte Esterase,Urine 1+ (Negative); PH,Urine 6.0 (5.0-8.5); Protein,Urine TRACE (Negative); Specific Gravity, Urine 1.020 (1.005-1.030); Urobilinogen,Urine 0.2 EU/dl (0.2)
--- NOTE | 2025-04-22 20:00 | PC.NURSE ---
Attempted to call report, RN in lab getting blood will call back
[2025-04-22 20:02] LABS: Troponin I < 0.01 ng/ml (0.00-0.034)
[2025-04-22 20:23] LABS: Bacteria,Urine 4+ /lpf; WBC,Urine 20-50 #/hpf (0-3)
--- NOTE | 2025-04-22 20:33 | PC.NURSE ---
Report given to Livier RN, pt to go to floor via stretcher
--- NOTE | 2025-04-22 21:16 | PC.NURSE ---
Patient arrived to floor via stretcher from ED at 21:15.
[2025-04-22 21:35] LABS: Hemoglobin A1C 7.0 % (4.0-6.0)
--- NOTE | 2025-04-22 21:51 | PC.NURSE ---
Spoke with Devon Valle (POA) to verify DNR/DNI status over phone. Verified with Carolyn Gipson RN. Updated POA on plan of care. States pt has trouble drinking from straws and needs frequent encouragement to drink fluids.
--- NOTE | 2025-04-22 22:05 | PC.NURSE ---
Spoke with [facility] and rehab staff. Requested fax for pt medical history and current medication list.
[2025-04-22] MEDS: PANTOPRAZOLE 40MG TABLET 40 MG PO (22:55)
[2025-04-22] MEDS: BUSPIRONE HCL 5 MG TABLET PO (22:56)
[2025-04-22 22:58] LABS: POC Glucose,Bedside 117 gm/dL (70-110)
[2025-04-22 23:34] LABS: Troponin I < 0.01 ng/ml (0.00-0.034)
[2025-04-23] VITALS (10 sets, daily range): BP systolic 91–135; BP diastolic 42–80; PULSE 68–91; RESP 16–20; TEMP 36.4–36.8; O2SAT 91–97; BMI 21.1
[2025-04-23 05:35] LABS: Hematocrit 31.1 % (37.0-47.0); Hemoglobin 9.5 g/dL (12.2-16.2); Immature Granulocytes % 0.6 %; Mean Corpuscular HGB Conc 30.5 g/dL (31.8-35.4); Mean Corpuscular Hemoglobin 25.5 pg (27.0-31.2); Mean Corpuscular Volume 83.4 fl (81-99); Nucleated Red Blood Cells % 0 %; Platelet Count 212 K/mm3 (142-424); Red Blood Count 3.73 M/mm3 (4.20-5.40); Red Cell Distribution Width-SD 52.0 fL; White Blood Count 14.1 K/mm3 (4.8-10.8)
[2025-04-23 05:44] LABS: Albumin Level 3.0 g/dl (3.5-5.0); Chloride 104 mmol/L (98-107); Potassium 4.5 mmoL/L (3.5-5.1); Sodium 137 mmol/L (136-145)
[2025-04-23 05:46] LABS: Alanine Aminotransferase 12 U/L (12-78); Aspartate Amino Transferase 20 U/L (14-36); Blood Urea Nitrogen 27 mg/dl (7-17); Creatinine Clearance Estimated 18 mL/min (50-200); Creatinine,Serum 2.00 mg/dl (0.52-1.04); Estimated Glomerular Filt Rate 24 ml/min (>60); GFR (African American) 29 ML/MIN (>60)
[2025-04-23 05:47] LABS: Albumin/Globulin Ratio 0.8 (1.1-1.8); Alkaline Phosphatase 117 U/L (38-126); Anion Gap 11.5 mEq/L (5-15); Bilirubin,Total 0.3 mg/dl (0.2-1.3); Calcium 10.2 mg/dl (8.4-10.2); Carbon Dioxide 26 mmol/L (22.0-30.0); Globulin 3.7 g/dL (1.3-3.2); Glucose 76 mg/dl (74-100); Magnesium 2.2 mg/dl (1.6-2.3); Total Protein,Serum 6.7 g/dl (6.3-8.2)
[2025-04-23 06:20] LABS: POC Glucose,Bedside 61 gm/dL (70-110)
--- NOTE | 2025-04-23 07:55 | P.PN_ITS ---
Subjective *Date: 04/23/25 *Time: 08:06 Interval history: Patient states she is feeling somewhat better this morning. Denies any pain. Denies shortness of breath. Oxygen had come off while sleeping and she maintained her sats in the low 90s. Currently on room air. Afebrile. No nausea or vomiting. No appreciable output in [place] drain connected to chest tube/pigtail Medical Exam Vital signs and Labs for Last 24 Hours: Vital Signs Temp Pulse Pulse Resp BP BP Pulse Ox 04/23/25 06:47 04/23/25 05:00 04/23/25 04:00 97.5 F L 68 20 135/80 97 04/23/25 04:00 70 04/23/25 03:00 04/23/25 01:00 04/23/25 00:00 70 04/22/25 22:42 04/22/25 22:37 99 04/22/25 22:26 70 24 126/71 99 04/22/25 21:53 97.8 F 74 154/40 H 98 04/22/25 21:07 98 F 72 20 142/74 H 04/22/25 21:00 04/22/25 21:00 04/22/25 20:30 98 04/22/25 19:59 98 F 71 22 146/72 H 96 04/22/25 18:00 74 27 H 146/78 H 92 L 04/22/25 17:30 26 H 104/49 L 04/22/25 17:00 74 18 107/47 L 99 04/22/25 16:30 74 23 102/46 L 99 04/22/25 15:30 76 25 H 129/67 97 04/22/25 15:00 76 28 H 130/56 L 97 04/22/25 13:47 98.6 F 77 24 114/59 L 99 O2 Del Method O2 Flow Rate 04/23/25 06:47 Nasal Cannula 3 04/23/25 05:00 Nasal Cannula 3 04/23/25 04:00 Nasal Cannula 3 04/23/25 04:00 04/23/25 03:00 Nasal Cannula 3 04/23/25 01:00 Nasal Cannula 3 04/23/25 00:00 04/22/25 22:42 Nasal Cannula 3 04/22/25 22:37 Nasal Cannula 04/22/25 22:26 Nasal Cannula 3 04/22/25 21:53 Nasal Cannula 3 04/22/25 21:07 Nasal Cannula 3 04/22/25 21:00 Nasal Cannula 3 04/22/25 21:00 Nasal Cannula 3 04/22/25 20:30 Nasal Cannula 3 04/22/25 19:59 Nasal Cannula 3 04/22/25 18:00 04/22/25 17:30 04/22/25 17:00 04/22/25 16:30 04/22/25 15:30 04/22/25 15:00 04/22/25 13:47 Nasal Cannula 3 Intake and Output 04/22/25 04/22/25 04/23/25 15:59 23:59 07:59 Intake Total 1000 / 1000 Output Total 600 / 600 Balance 1000 / 1000 -600 / -600 Intake: Intake, Total IV Amount 1000 / 1000 0.9 % Sodium Chloride 1000ML 1, 1000 / 1000 000 ml @ 999 mls/hr IV .Q1H1M ONE Rx#:[id number] Output: Output, Urine Amount 600 / 600 Other: Weight 53.07 kg 48.761 kg Patient Weight 04/23/25 23:59 Weight 48.761 kg Laboratory Results - last 24 hr 04/22/25 15:00: WBC 14.7 H, RBC 3.80 L, Hgb 9.4 L, Hct 30.8 L, MCV 81.1, MCH 24.7 L, MCHC 30.5 L, RDW 17.2, Plt Count 220, MPV 10.6 H, Neut % (Auto) 81.8 H, Lymph % (Auto) 11.6, Riley % (Auto) 4.2, Eos % (Auto) 1.7, Baso % (Auto) 0.2, Neut # (Auto) 12.0 H, Lymph # (Auto) 1.7, Riley # (Auto) 0.6, Eos # (Auto) 0.3, Baso # (Auto) 0.0, PT 12.7 H, INR 1.16 H, VBG pH 7.33, VBG pCO2 52.1 H, VBG pO2 41.2 H, VBG HCO3 26.9, VBG Total CO2 28.5 H, VBG O2 Saturation 73.1 H, VBG Base Excess 1.0, VBG Lactic Acid 1.6, Sodium 135 L, Potassium 4.8, Chloride 102, Carbon Dioxide 27, Anion Gap 10.8, BUN 31 H, Creatinine 2.10 H, Estimated Creat Clear 18, Estimated GFR 23 L, Est GFR ( Amer) 28 L, Glucose 116 H, Hemoglobin A1c 7.0 H, Calcium 9.8, Magnesium 2.1, Total Bilirubin 0.6, AST 26, ALT 10 L, Alkaline Phosphatase 135 H, Troponin I < 0.01, NT-Pro-B Natriuret Pep 1460 H, Total Protein 6.8, Albumin 3.0 L, Globulin 3.8 H, Albumin/Globulin Ratio 0.8 L, Lipase 15 L 04/22/25 15:10: Chlamy pneumoniae PCR Not detected, Adenovirus (PCR) Not detected, B. pertussis DNA (PCR) Not detected, Coronavirus OC43 (PCR) Not detected, Coronavirus HKU1 (PCR) Not detected, Coronavirus 229E (PCR) Not detected, SARS-CoV-2 (PCR) Not detected, Coronavirus NL63 (PCR) Not detected, Human Metapneumovir PCR Not detected, Influenza A (H1) PCR Not detected, Influ A (H1N1/09) PCR Not detected, Influenza A (H3) PCR Not detected, Influenza Type A (PCR) Not detected, Influenza Type B (PCR) Not detected, M. pneumoniae (PCR) Not detected, Parainfluenza 1 (PCR) Not detected, Parainfluenza 2 (PCR) Not detected, Parainfluenza 3 (PCR) Not detected, Parainfluenza 4 (PCR) Not detected, RSV (PCR) Not detected, Entero/Rhino (PCR) Not detected 04/22/25 15:35: Lactate 0.9 04/22/25 18:30: Fluid Source Pleural, Fluid Volume 24, Fluid Appearance Hazy, Fluid RBC (Auto) 1, Fld Tot Nucleated Cell 252, Fld Polynuclear WBCs % 19, Fld Mononuclear WBCs % 81 04/22/25 19:21: Troponin I < 0.01 04/22/25 19:44: Urine Color Yellow, Urine Appearance Clear, Urine pH 6.0, Ur Specific [place] 1.020, Urine Protein Trace, Urine Glucose (UA) Negative, Urine Ketones Negative, Urine Blood Trace-i, Urine Nitrate Positive A, Urine Bilirubin Negative, Urine Urobilinogen 0.2, Ur Leukocyte Esterase 1+ A, Urine RBC None, Urine WBC 20-50, Ur Squamous Epith Cells 3-5, Urine Bacteria 4+ 04/22/25 22:50: POC Glucose 117 H 04/22/25 22:57: Troponin I < 0.01 04/23/25 05:13: WBC 14.1 H, RBC 3.73 L, Hgb 9.5 L, Hct 31.1 L, MCV 83.4, MCH 25.5 L, MCHC 30.5 L, RDW 17.1, Plt Count 212, MPV 10.2, Neut % (Auto) 83.8 H, Lymph % (Auto) 10.9, Riley % (Auto) 3.6, Eos % (Auto) 0.9, Baso % (Auto) 0.2, Neut # (Auto) 11.8 H, Lymph # (Auto) 1.5, Riley # (Auto) 0.5, Eos # (Auto) 0.1, Baso # (Auto) 0.0, Sodium 137, Potassium 4.5, Chloride 104, Carbon Dioxide 26, Anion Gap 11.5, BUN 27 H, Creatinine 2.00 H, Estimated Creat Clear 18, Estimated GFR 24 L, Est GFR ( Amer) 29 L, Glucose 76 D, Calcium 10.2, Magnesium 2.2, Total Bilirubin 0.3, AST 20, ALT 12, Alkaline Phosphatase 117, Total Protein 6.7, Albumin 3.0 L, Globulin 3.7 H, Albumin/Globulin Ratio 0.8 L 04/23/25 06:13: POC Glucose 61 L I & O for Labs for Last 24 Hours: Intake & Output 04/20/25 04/21/25 04/22/25 04/23/25 23:59 23:59 23:59 23:59 Intake Total 1000 / 1000 Output Total 600 / 600 Balance 1000 / 1000 -600 / -600 Weight 53.07 kg 48.761 kg Microbiology Reports for the Last 24 Hours: Microbiology 04/22/25 18:30 Thoracic Fluid Gram Stain - Final Constitutional: Present no acute distress, thin, chronically ill appearing and cooperative Respiratory: Present normal respiratory effort; Absent accessory muscle use, rhonchi, wheezes or crackles Comment:: Breath sounds present on right side, absent on left; small bore chest tube in left midaxillary line Cardiac: Present Reg Rate and Rhythm GI: Present soft and normal bowel sounds; Absent distention or tenderness Extremities: Present normal inspection Comment:: Right lower extremity weakness, deficits noted Skin: Present intact; Absent erythema Neuro: Present Grossly Intact, alert, awake and moves all extremities Comment:: Right lower extremity weakness compared to left. Oriented to self and place Assessment and Plan *Assessment and plan (1) Postobstructive pneumonia: Status: Acute Category: Medical Code(s): J18.9 - Pneumonia, unspecified organism (2) Lung mass: Problem Comment: patient and family have declined further workup Status: Chronic Category: Medical Code(s): R91.8 - Other nonspecific abnormal finding of lung field (3) Pleural effusion: Status: Acute Category: Medical Code(s): J90 - Pleural effusion, not elsewhere classified (4) Acute kidney injury: Status: Acute Category: Medical Code(s): N17.9 - Acute kidney failure, unspecified (5) Seizure disorder: Status: Chronic Category: Medical Code(s): G40.909 - Epilepsy, unspecified, not intractable, without status epilepticus (6) Hemiparesis affecting right side as late effect of cerebrovascular accident: Status: Chronic Category: Medical Code(s): I69.351 - Hemiplegia and hemiparesis following cerebral infarction affecting right dominant side (7) GERD (gastroesophageal reflux disease): Status: Chronic Category: Medical Code(s): K21.9 - Gastro-esophageal reflux disease without esophagitis (8) Diabetes mellitus type 2, controlled: Status: Chronic Category: Medical Code(s): E11.9 - Type 2 diabetes mellitus without complications (9) CAD (coronary artery disease): Status: Chronic Qualifiers: Associated angina: without angina Coronary Disease-Associated Artery/Lesion type: [place] artery [place] vs. transplanted heart: [place] heart Qualified Code(s): I25.10 - Atherosclerotic heart disease of [place] coronary artery without angina pectoris Category: Medical Code(s): I25.10 - Atherosclerotic heart disease of [place] coronary artery without angina pectoris (10) HTN (hypertension): Status: Chronic Qualifiers: Hypertension type: essential hypertension Qualified Code(s): I10 - Essential (primary) hypertension Category: Medical Code(s): I10 - Essential (primary) hypertension (11) Tobacco dependence syndrome: Status: Chronic Category: Medical Code(s): F17.200 - Nicotine dependence, unspecified, uncomplicated (12) Carotid artery disease: Status: Chronic Qualifiers: Carotid artery disease type: stenosis Laterality: bilateral Qualified Code(s): I65.23 - Occlusion and stenosis of bilateral carotid arteries Category: Medical Code(s): I77.9 - Disorder of arteries and arterioles, unspecified (13) Anemia: Status: Acute Category: Medical Code(s): D64.9 - Anemia, unspecified (14) Anxiety: Status: Acute Category: Medical Code(s): F41.9 - Anxiety disorder, unspecified (15) Declining functional status: Status: Acute Category: Medical Code(s): R53.81 - Other malaise (16) PAD (peripheral artery disease): Status: Chronic Category: Medical Code(s): I73.9 - Peripheral vascular disease, unspecified (17) Chronic kidney disease: Status: Chronic Qualifiers: Chronic kidney disease stage: unspecified stage Qualified Code(s): N18.9 - Chronic kidney disease, unspecified Category: Medical Code(s): N18.9 - Chronic kidney disease, unspecified Plan Flor Arroyo is a 79-year-old female with a medical history significant for chronic tobacco smoker, type 2 diabetes, CVA with right sided residual deficits, seizure disorder, hypertension, CAD, carotid artery disease, and known lung mass. Presents to the ER with concern for increased weakness and oxygen requirement. Workup shows complete whiteout of left hemithorax and obstruction in left mainstem bronchus along with pleural effusion. Discussed case with ER physician, request admission for further treatment of suspected pneumonia, pleural effusion and goals of care discussion about lung mass. I agreed and decided to admit for further care. Pulmonology consulted to evaluate in the morning. Plan for further goals of care. Highly suspicious for progressing cancer causing obstruction. Suspect postobstructive pneumonia. Patient's condition serious, prognosis poor. Further discussion with pulmonology and family today. Problems addressed as follows: Postobstructive pneumonia Enlarging lung mass highly suspicious for cancer with suspected metastases -CT of chest per my review with large left-sided effusion, complete whiteout of left lung, mass extruding from left mainstem bronchus into trachea. Mass seen on CT of chest a year ago and discussion at that time with no desire to proceed with further workup per patient. She has continued to smoke daily. Highly suspicious that what appears to be pneumonia is obstructive. Thoracentesis performed in the ER. Pleural fluid along with blood cultures obtained and pending -Fluid studies ordered and pending. -Discussed case with pulmonology, recommends - Goal sats greater 90%. Currently on room air. - Continue Levaquin 750 mg daily -White count remains elevated at 14.1. Hemoglobin 9.5. - Sputum culture pending [place]: Creatinine 2.1 on admission. Baseline 1.5 in October. - Creatinine still elevated at 2.0, BUN 27. Magnesium 2.2. - Repeat CBC, CMP, magnesium ordered for the morning. - BNP elevated at 1400. Will hold on diuresis at this time. Does not have peripheral edema. Suspect this may be related to mass effect from lingular mass seen on CT as it is potentially occluding left pulmonary artery as well as invading pericardial sac. 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 MRI obtained that same time confirming acute and subacute left frontotemporal stroke. -Stopped antiplatelet therapy earlier this year due to GI bleed. -No new complaints today. Fully dependent on nursing care for most ADLs. Resides at [facility] long-term #Type 2 diabetes: Sliding scale insulin with fingersticks ACHS. A1c 7.0 this admission Chronic conditions: #Hyperlipidemia #Hypertension #Depression/anxiety ? Continue Zoloft 100 mg daily and BuSpar 5 mg twice daily. Holding statin Tobacco use disorder: Goals of care: - Continues to smoke despite all of the diagnoses above. This is a quality measure for this patient. She wants to be comfortable and do activities she enjoys. Nicotine patch while admitted. Will have further goals of care discussions. Has previously discussed hospice and been open to it but wanted to try therapy a year ago. Does not appear to have had significant improvement in obtaining independence or increased mobility. In light of progression of disease above, will further goals of care with family. DNR/DNI Regular diet Holding anticoagulation in anticipation of procedure
--- NOTE | 2025-04-23 08:20 | P.CONPHA_ITS ---
Pharmacy Intervention Comments: MEDICATION RECONCILIATION COMPLETED ON PATIENT USING MAR FROM INTERMEDIATE. -LANDEN CABRERA, JAVIERD
--- NOTE | 2025-04-23 08:20 | HMH.PHAINT1 ---
Pharmacy Intervention Comments: MEDICATION RECONCILIATION COMPLETED ON PATIENT USING MAR FROM DETENTION. -LANDEN CABRERA, JAVIERD
[2025-04-23] MEDS: LEVOFLOXACIN/D5W 750 MG/150 ML 750 MG/150 ML PIGGYBACK 100 MG IV (08:35)
--- NOTE | 2025-04-23 08:57 | HMH.PHAAMS2 ---
- Antimicrobial Stewardship Review culture & sensitivity review Stewardship interventions: culture & sensitivity review, reviewed - no change Comments: URINE CX PENDING, THORACIC FLUID CX PENDING, PATIENT CURRENTLY ON LEVAQUIN FOR PNEUMONIA. WBC ELEVATED AT 14.1 K/mm3 TODAY, AFEBRILE SINCE ADMISSION.
--- NOTE | 2025-04-23 09:48 | HMH.OTEV ---
OT Evaluation Rehab OT IP Evaluation Start: 04/22/25 22:10 Freq: ONCE Status: Active Protocol: Document 04/23/25 09:28 LINDA (Rec: 04/23/25 09:48 LINDA [id number]) Rehab OT IP Assessment Subjective History Ms. Arroyo is a 79-year-old female with multiple comorbidities who resides at [facility] and rehab . They have been treating her for generalized weakness and pneumonia for the past few days. Weakness has gotten worse and had some increased confusion per usp report. EMS brought her to the ER for further evaluation. On arrival, history obtained more from family than patient. The nursing has been treating her for the past 5 to 7 days with Levaquin. Unfortunately she has been getting worse per their report. She is overall weak with some increased confusion. Currently on 3 L nasal cannula, normally wears 2 L nasal cannula. Has had some decreased p.o. intake. Cough has been productive. Patient is afebrile on arrival. Workup including CTA of the chest obtained. Found to have elevated white count of 14. CTA of the chest showing complete whiteout of left lung field. Large effusion with collapse of left lung and obstruction of left main bronchus. Known history of lung mass for which she did not want to pursue any treatment a year ago. Findings most consistent with obstructive pneumonia. Pulmonology consulted who recommended antibiotics, thoracentesis, admission and evaluation in the morning. Medicine consulted for admission. On my evaluation, patient is pleasant. Denies any pain . Is very agreeable. Does not appear in any acute distress. She is quite weak. Denies nausea or vomiting or chest pain. Instructed Patient on completing bed mobility from supine->sit @ EOB requiring total assistance. Patient unable to sit @ EOB. Increase confusion noted during initial evaluation. Will attempt later this date for OOB tasks. Subjective oh. Objective Patient Orientation Name Right Upper WFL Extremity Gross ROM Left Upper Extremity WFL Gross ROM Bed Mobility bed mobility - supine/sit Assist Level Total/Dependent (100%) Rehab OT IP prob,goals,plan Problems Date of Evaluation: 04/23/25 OT IP Problems Bed Mobility,Transfers,Balance,Self care,Safety Rehab Potential Rehab Potential Good Plan OT intervention Plan Bed Mobility,Transfers,Balance,Self care,Safety, Therapeutic Exercise OT Plan Frequency Daily Duration LOS Discharge Goals Bed Mobility Ability Assistance x2 Discharge Plan OT Discharge Plan Recommend patient to return back to SNF for rehabilitation and nursing skilled services. Patient to continue skilled OT IP services while here at [facility]. Eval Complexity Eval Charge Codes 25600 - Low Complexity PHYSICIAN CERTIFICATION: I certify the specified therapy services for Flor Arroyo are required, authorized, and reviewed every 30 days.
--- NOTE | 2025-04-23 09:49 | EXP.PULM.CON ---
History of Present Illness History of present illness: Mr. Arroyo is a 79-year-old female presented to the hospital complaining of worsening weakness respiratory distress and concerning for pneumonia failed outpatient treatment. [facility] Disclaimer: The information contained in this section may have been updated after the patient was seen, as this information can be updated by other users. 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 of cerebrovascular accident Anemia Knee osteoarthritis GERD (gastroesophageal reflux disease) Abnormal radiologic finding of lung field Anxiety Pain in right wrist Right radial fracture Osteoarthritis History of TIA (transient ischemic attack) Elbow fracture, right Fracture of wrist TIA (transient ischemic attack) Bilateral carotid bruits PAD (peripheral artery disease) HLD (hyperlipidemia) CAD (coronary artery disease) HTN (hypertension) Carotid artery disease Surgical History History of cataract surgery Hx of shoulder surgery History of total knee arthroplasty History of left-sided carotid endarterectomy Family History No significant family history Social History Smoking Status: Unknown if ever smoked second hand exposure: Yes alcohol intake: never counseling provided: none substance use type: denies use current occupational status: retired Travel in the last 8 weeks?: None household members: spouse housing: house current occupational exposures/hazards: No caffeine: Yes Have you lived/traveled outside US in past 30 days?: No Contact w/someone who lives/traveled outside US past 30 days?: No Exposure to someone with infectious disease in past 14 days?: No Do you have a fever (greater than 100.4 F or 38 C)?: No Have you tested positive for COVID-19?: No Exposed to someone with COVID-19 in past 14 days?: No Do you have a sore throat?: No Do you have a cough?: No Do you have any weakness?: No Do you have any diarrhea?: No Are you experiencing any unusual bleeding?: No Do you have any muscle aches/pain?: No Do you have any abdominal pain?: No Are you experiencing loss of taste or smell?: No Review of Systems Constitutional Constitutional: Reports anorexia, Reports body ache(s) and Reports fatigue Eyes Eyes: Denies eye discharge, Denies dry eyes, Denies irritation and Denies itchy eyes ENT Ears, Nose, Mouth, and Throat: Denies epistaxis, Denies facial pain, Denies lip swelling and Denies throat swelling *Cardiovascular Cardiovascular: Reports dyspnea, Reports dyspnea on exertion and Denies leg edema *Respiratory Respiratory: Denies change in phlegm color, Reports chest congestion, Reports cough, Reports dyspnea, Reports dyspnea on exertion, Denies excessive phlegm production, Denies hemoptysis, Denies pain on inspiration, Denies pain with cough and Denies wheezing *Gastrointestinal Gastrointestinal: Denies abdominal pain, Denies belching and Denies cramping *Musculoskeletal Musculoskeletal: Reports back pain, Reports myalgias and Reports other (No small joint swelling or Pain) Psychiatric Psychiatric: Denies homicidal ideation and Denies suicidal ideation Endocrine Endocrine: Reports fatigue and Denies heat intolerance Hematologic/Lymphatic Hematologic/Lymphatic: Denies easy bleeding and Denies lymphadenopathy Allergic/Immunologic Allergic/Immunologic: Denies itchy eyes, Denies lip swelling, Denies throat swelling and Denies wheezing Pulmonology Exam Inpatient Vital signs and Labs for Last 24 Hours: Temp Pulse Resp BP Pulse Ox O2 Del Method O2 Flow Rate 98.0 F 69 16 91/44 L 95 Room Air 3 04/23/25 08:00 04/23/25 08:00 04/23/25 08:00 04/23/25 08:00 04/23/25 08:00 04/23/25 09:00 04/23/25 06:47 Laboratory Results - last 24 hr 04/22/25 15:00: WBC 14.7 H, RBC 3.80 L, Hgb 9.4 L, Hct 30.8 L, MCV 81.1, MCH 24.7 L, MCHC 30.5 L, RDW 17.2, Plt Count 220, MPV 10.6 H, Neut % (Auto) 81.8 H, Lymph % (Auto) 11.6, Irwin % (Auto) 4.2, Eos % (Auto) 1.7, Baso % (Auto) 0.2, Neut # (Auto) 12.0 H, Lymph # (Auto) 1.7, Irwin # (Auto) 0.6, Eos # (Auto) 0.3, Baso # (Auto) 0.0, PT 12.7 H, INR 1.16 H, VBG pH 7.33, VBG pCO2 52.1 H, VBG pO2 41.2 H, VBG HCO3 26.9, VBG Total CO2 28.5 H, VBG O2 Saturation 73.1 H, VBG Base Excess 1.0, VBG Lactic Acid 1.6, Sodium 135 L, Potassium 4.8, Chloride 102, Carbon Dioxide 27, Anion Gap 10.8, BUN 31 H, Creatinine 2.10 H, Estimated Creat Clear 18, Estimated GFR 23 L, Est GFR ( Amer) 28 L, Glucose 116 H, Hemoglobin A1c 7.0 H, Calcium 9.8, Magnesium 2.1, Total Bilirubin 0.6, AST 26, ALT 10 L, Alkaline Phosphatase 135 H, Troponin I < 0.01, NT-Pro-B Natriuret Pep 1460 H, Total Protein 6.8, Albumin 3.0 L, Globulin 3.8 H, Albumin/Globulin Ratio 0.8 L, Lipase 15 L 04/22/25 15:10: Chlamy pneumoniae PCR Not detected, Adenovirus (PCR) Not detected, B. pertussis DNA (PCR) Not detected, Coronavirus OC43 (PCR) Not detected, Coronavirus HKU1 (PCR) Not detected, Coronavirus 229E (PCR) Not detected, SARS-CoV-2 (PCR) Not detected, Coronavirus NL63 (PCR) Not detected, Human Metapneumovir PCR Not detected, Influenza A (H1) PCR Not detected, Influ A (H1N1/09) PCR Not detected, Influenza A (H3) PCR Not detected, Influenza Type A (PCR) Not detected, Influenza Type B (PCR) Not detected, M. pneumoniae (PCR) Not detected, Parainfluenza 1 (PCR) Not detected, Parainfluenza 2 (PCR) Not detected, Parainfluenza 3 (PCR) Not detected, Parainfluenza 4 (PCR) Not detected, RSV (PCR) Not detected, Entero/Rhino (PCR) Not detected 04/22/25 15:35: Lactate 0.9 04/22/25 18:30: Fluid Source Pleural, Fluid Volume 24, Fluid Appearance Hazy, Fluid RBC (Auto) 1, Fld Tot Nucleated Cell 252, Fld Polynuclear WBCs % 19, Fld Mononuclear WBCs % 81 04/22/25 19:21: Troponin I < 0.01 04/22/25 19:44: Urine Color Yellow, Urine Appearance Clear, Urine pH 6.0, Ur Specific Dexter 1.020, Urine Protein Trace, Urine Glucose (UA) Negative, Urine Ketones Negative, Urine Blood Trace-i, Urine Nitrate Positive A, Urine Bilirubin Negative, Urine Urobilinogen 0.2, Ur Leukocyte Esterase 1+ A, Urine RBC None, Urine WBC 20-50, Ur Squamous Epith Cells 3-5, Urine Bacteria 4+ 04/22/25 22:50: POC Glucose 117 H 04/22/25 22:57: Troponin I < 0.01 04/23/25 05:13: WBC 14.1 H, RBC 3.73 L, Hgb 9.5 L, Hct 31.1 L, MCV 83.4, MCH 25.5 L, MCHC 30.5 L, RDW 17.1, Plt Count 212, MPV 10.2, Neut % (Auto) 83.8 H, Lymph % (Auto) 10.9, Irwin % (Auto) 3.6, Eos % (Auto) 0.9, Baso % (Auto) 0.2, Neut # (Auto) 11.8 H, Lymph # (Auto) 1.5, Irwin # (Auto) 0.5, Eos # (Auto) 0.1, Baso # (Auto) 0.0, Sodium 137, Potassium 4.5, Chloride 104, Carbon Dioxide 26, Anion Gap 11.5, BUN 27 H, Creatinine 2.00 H, Estimated Creat Clear 18, Estimated GFR 24 L, Est GFR ( Amer) 29 L, Glucose 76 D, Calcium 10.2, Magnesium 2.2, Total Bilirubin 0.3, AST 20, ALT 12, Alkaline Phosphatase 117, Total Protein 6.7, Albumin 3.0 L, Globulin 3.7 H, Albumin/Globulin Ratio 0.8 L 04/23/25 06:13: POC Glucose 61 L I & O for Labs for Last 24 Hours: Intake & Output 04/20/25 04/21/25 04/22/25 04/23/25 23:59 23:59 23:59 23:59 Intake Total 1000 / 1000 Output Total 750 / 750 Balance 1000 / 1000 -750 / -750 Weight 117 lb 107 lb 8 oz Microbiology Reports for the Last 24 Hours: Microbiology 04/22/25 19:44 Urine,Clean Catch Urine Culture - Preliminary Gram Negative Rods 04/22/25 18:30 Thoracic Fluid Gram Stain - Final Constitutional: Present moderate distress Head: Present normocephalic and atraumatic ENT: Present normal exam, normal oropharynx and mucous membranes moist Neck: Present normal inspection and full ROM Respiratory: Present rhonchi, diminished air movement and able to speak in complete sentences; Absent wheezes Cardiac: Present S1/S2, Tachycardia and radial pulses present GI: Present soft and distention; Absent tenderness or guarding Rectal (female): Present deferred (female): Present deferred Skin: Present intact; Absent cyanosis or jaundice Neuro: Present alert, awake and oriented x 3 Extremities: Present normal inspection; Absent clubbing or cyanosis Psychiatric: Present cooperative Meds Home Medications and Allergies Home Medications ?Medication ?Instructions ?Recorded ?Confirmed ?Type atorvastatin 40 mg tablet 40 mg PO HS 30 days #30 tabs 04/26/24 04/22/25 Rx potassium chloride 20 mEq 40 meq (2 x 20 mEq) PO DAILY 30 04/26/24 04/22/25 Rx tablet,extended days #60 tabs release(part/cryst) (Klor-Con M) lactulose 10 gram/15 mL oral 30 ml PO BIDP PRN Constipation 06/07/24 04/22/25 History solution magnesium 200 mg tablet 400 mg PO DAILY 06/07/24 04/22/25 History ferrous sulfate 325 mg (65 mg 325 mg PO DAILY 06/08/24 04/22/25 History iron) tablet multivitamin 1 tab PO DAILY 06/08/24 04/22/25 History acetaminophen 500 mg tablet 500 mg PO Q6HP PRN Mild Pain 07/31/24 04/23/25 History (Scale Score 1-4) levetiracetam 500 mg tablet 500 mg PO BID 07/31/24 04/22/25 History (Keppra) loperamide 2 mg capsule 2 mg PO Q6HP PRN Diarrhea 07/31/24 04/23/25 History cranberry 500 mg capsule 500 mg PO DAILY 09/19/24 04/22/25 History estradiol 0.01% (0.1 mg/gram) 1 g vaginal WEEKLY 09/19/24 04/22/25 History vaginal cream (Estrace) buspirone 5 mg tablet 5 mg PO BID 10/23/24 04/22/25 History insulin glargine 100 unit/mL (3 10 unit SQ HS 10/23/24 04/22/25 History mL) subcutaneous pen (Lantus Solostar U-100 Insulin) insulin lispro 100 unit/mL 1 sliding scale dose SQ DIRECTED 10/23/24 04/22/25 History subcutaneous pen (Humalog KwikPen (U-100) Insulin) mirtazapine 7.5 mg tablet 7.5 mg PO HS 04/22/25 04/22/25 History pantoprazole 40 mg tablet,delayed 40 mg PO DAILY 04/22/25 04/22/25 History release sertraline 100 mg tablet 100 mg PO HS 04/22/25 04/22/25 History New Prescriptions to Start Prescriptions: Allergies Allergy/AdvReac Type Severity Reaction Status Date / Time latex (LATEX) Allergy Intermediate I-ITCHING Verified 04/22/25 22:17 Penicillins (PENICILLINS) Allergy Mild I-RASH Verified 04/22/25 22:17 Sulfa (Sulfonamide Allergy Unknown I-RASH Verified 04/22/25 22:17 Antibiotics) (SULFA (SULFONAMIDE ANTIBIOTICS)) Tetanus Vaccines and Toxoid Allergy Unknown Verified 04/22/25 22:17 (TETANUS VACCINES & TOXOID) Results Laboratory Findings 04/23/25 05:13 04/23/25 05:13 PT/INR, D-dimer PT 12.7 seconds (10.1-12.5) H 04/22/25 15:00 INR 1.16 (0.9-1.1) H 04/22/25 15:00 Abnormal lab findings: Abnormal Labs 04/22/25 04/22/25 04/22/25 15:00 19:44 22:50 WBC 14.7 H RBC 3.80 L Hgb 9.4 L Hct 30.8 L MCH 24.7 L MCHC 30.5 L MPV 10.6 H Neut % (Auto) 81.8 H Neut # (Auto) 12.0 H PT 12.7 H INR 1.16 H VBG pCO2 52.1 H VBG pO2 41.2 H VBG Total CO2 28.5 H VBG O2 Saturation 73.1 H Sodium 135 L BUN 31 H Creatinine 2.10 H Estimated GFR 23 L Est GFR ( Amer) 28 L Glucose 116 H POC Glucose 117 H Hemoglobin A1c 7.0 H ALT 10 L Alkaline Phosphatase 135 H NT-Pro-B Natriuret Pep 1460 H Albumin 3.0 L Globulin 3.8 H Albumin/Globulin Ratio 0.8 L Lipase 15 L Urine Nitrate Positive A Ur Leukocyte Esterase 1+ A 04/23/25 04/23/25 05:13 06:13 WBC 14.1 H RBC 3.73 L Hgb 9.5 L Hct 31.1 L MCH 25.5 L MCHC 30.5 L MPV Neut % (Auto) 83.8 H Neut # (Auto) 11.8 H PT INR VBG pCO2 VBG pO2 VBG Total CO2 VBG O2 Saturation Sodium BUN 27 H Creatinine 2.00 H Estimated GFR 24 L Est GFR ( Amer) 29 L Glucose POC Glucose 61 L Hemoglobin A1c ALT Alkaline Phosphatase NT-Pro-B Natriuret Pep Albumin 3.0 L Globulin 3.7 H Albumin/Globulin Ratio 0.8 L Lipase Urine Nitrate Ur Leukocyte Esterase Assessment and Plan *Assessment and plan (1) Pleural effusion: Status: Acute Category: Medical Code(s): J90 - Pleural effusion, not elsewhere classified (2) Mass of lingula of lung: Status: Acute Category: Medical Code(s): R91.8 - Other nonspecific abnormal finding of lung field (3) Multiple lung nodules on CT: Status: Acute Category: Medical Code(s): R91.8 - Other nonspecific abnormal finding of lung field (4) Pneumonia: Status: Acute Category: Medical Code(s): J18.9 - Pneumonia, unspecified organism Plan Mr. Arroyo is a 79-year-old female presented to the hospital complaining of worsening weakness respiratory distress and concerning for pneumonia failed outpatient treatment. Afebrile. Neutrophilic predominant leukocytosis. CTA upon admission suboptimal, no proximal pulmonary embolism noted. Significant findings including large left hilar mass with invasion of anterior mediastinum and surrounding vascular structures along with lymphadenopathy, with right upper lobe mass and large left pleural effusion with complete collapse of the left lung. Status post thoracentesis, improving aeration on the left lung alston. Also noted to have debris/endobronchial lesion in the left mainstem bronchus with near complete occlusion. Cannot completely rule out postobstructive pneumonia along with the noted mass and effusion. CTA from June 2024 showed concerning findings of the left lingular mass and right upper lobe nodule during with patient and family opted conservative management with no intervention/treatment. 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 Chest x-ray postthoracentesis improving aeration, pigtail catheter in place. Urine cultures E.coli and Klebsiella bingham sensitive. Goals of care per primary team, patient and family would like to pursue hospice care at this point of time. No significant respiratory distress on room air. No wheezing. Decreased breath sounds left lower lung alston. Saturating 95% and above on room air. Plan: Follow-up pleural fluid studies and cytopathology. Pigtail catheter removed this morning. Plan was to continue antibiotics for total of 7-days for postobstructive pneumonia Incentive spirometry and flutter valve DuoNebs 4 times daily as needed # Thank you for involving pulmonary in this patient care.
--- NOTE | 2025-04-23 09:58 | SW/DCPLANNER ---
Addendum entered by Subha Inman 04/24/25 09:57: I have updated Radha w/ [facility] that patient will discharge to [facility] today. Hospice will admit patient this afternoon once she returns to [facility]. Addendum entered by Subha Inman 04/23/25 13:56: Sara w/ [facility] spoke w/ family and decision was made for patient to return to [facility] tomorrow [facility] level of care w/ Hospice to admit tomorrow afternoon. I have updated Radha w/ [facility] regarding discharge plans. Addendum entered by Subha Inman 04/23/25 12:25: Patient/family are agreeable to Hospice services/ comfort care at this time. Patient information will be faxed to [facility]. I will follow up once information is reviewed. Original Note: Patient currently resides at [facility] level of care. Dr Gomez asked that I speak w/ family regarding meeting at bedside to discuss goals of care. Per patient's son he will be at bedside today at 11:30AM.
--- NOTE | 2025-04-23 10:10 | PC.NURSE ---
at bedside. Chest tube removed at this time. Chest tube intact. Patient tolerated well. Continuation of care plan.
--- OUTSIDE RECORDS SUMMARY | 2025-04-23 10:19 | XMS_ITS | Encounter Summary ---
Author Organization [employer] ([place], [place], [place], [place], [place]) Address [address] [place] [address] Care Team Providers Care Parquet Floor Layer Name Role Phone Unavailable Primary Care Provider Unavailabl e Encounter Details Date Type Department Care Team (Late st Contact Info) Description 07/10/2018 Transcribed Document [facility] Radiology [address] [place] [address] Provider, Layla Acosta MD Social [...]
--- OUTSIDE RECORDS SUMMARY | 2025-04-23 10:19 | XMS_ITS | Encounter Summary ---
Author Organization [employer] ([place], [place], [place], [place], [place]) Address [address] [place] [address] Care Team Providers Care Wildlife Veterinarian Name Role Phone Unavailable Primary Care Provider Unavailabl e Encounter Details Date Type Department Care Team (Late st Contact Info) Description 07/11/2018 Transcribed Document [facility] Radiology [address] [place] [address] Provider, Layla Acosta MD Social [...] : Supervision or set-up Toileting Device : [id number] commode Toilet Transfer Assist Level : Supervision or set-up Toilet Transfer Device : Belt, gait, Walker, rolling, [id number] commode JACK LUCIO OTR/Carolyn 07/12/2018 11:48 EDT [...]
--- OUTSIDE RECORDS SUMMARY | 2025-04-23 10:19 | XMS_ITS | Clinical Summary ---
Author Organization [facility] Address [address] [place] [address] Care Team Providers Care Money Laundering Investigator Name Role Phone Haroldo Key MD Primary Care Provider [phone] Allergies Active Allergy Reactions Criticality Noted Date [...] Description 02/27/2025 1:30 PM EDT Office Visit [place] [facility] [address] [place] [address] Lucila Johnson APRN Witnessed seizure-like activity (CMS/HCC) [...] week 07/25/2024 How often do you attend [facility] or taoist services? Never 07/25/2024 Do you belong to any clubs o r organizations such as cheondoism groups, unions, fraternal or athletic groups, or [...] more drinks on one occasion? Never 07/25/2024 [facility] - Occupational [...] any time in the past 12 m [facility], were you homeless or living [...] Visit [place] [facility] [address] [place] [address] BellawendyLucila mcdaniel, SHEEP SORTER [address] [place] [address] Health Maintenance Due Date Last Done Comments [facility]-Bone Density Scan 1945 [facility]-Depression Screening 1945 [facility]-Medicare Annual Wellness (AWV) 1945 [facility]-Infant/Child/Adol SDOH Screenings 1945 Diabetes: Dental Exam 1956 [facility]-Pneumococcal Vaccine: 50 + Years (1 of 2 - PCV) 1965 [facility]-Zoster Vaccines (1 of 2) 1996 [facility]-RSV Vaccine: 60+ Years o r (1 - 1-dose 75+ series) 2021 [id number] Vaccine (1 - 2024- season) 2024 [facility]-Influenza [...] 5.7(H) <5.7 % 07/23/2024 8:45 AM EDT [facility] Blood Venous blood specimen / Unknown Venipuncture / Unknown 07/23/2024 4:28 AM EDT 07/23/2024 4:31 AM EDT Narrative [facility] - 07/23/2024 8:45 AM EDT HA1C Interpretive Data: Diagnosis of Diabetes: Diabetic > or = 6.5% Pre-diabetic 5.7 to 6.4% Non-diabetic < or = 5.6% Glycemic Targets for Type I and Type II Diabetics: Non- Adults <7.0% Adults <6.0% Children and Adolescents <7.5% Source: [place] [employer]. Standards of medical care in diabetes,2017. Diabetes Care.2017:40 (suppl 1):S1-S135. HbA1c assay performed by an ion-exchange chromatography method that is certified traceable to the DCCT. us Timoteo Zuluaga MD LAB BLOOD ORDERABLES Final Re sult [facility] [address] [place] [address] * Hepatitis C Antibody - ED (07/23/2024 4:22 AM EDT) Hepatitis C Antibody Negative Negative 07/23/2024 5:56 AM EDT [facility] Blood Venous blood specimen / Unknown Venipuncture / Unknown 07/23/2024 4:22 AM EDT 07/23/2024 4:32 AM EDT us Timoteo Zuluaga MD LAB BLOOD ORDERABLES Final Re sult [facility] [address] [place] [address] from Last 3 Months or Most Recently Relevant to Health Maintenance Insurance [facility] [place]ID-[place] MEDICARE Advance Directives Documents on File Type Date Recorded Patient Fisher Expl anation Advance Directives and Livin g Will 07/28/2024 12:52 PM * DNR/DNI (Latest Code Status on File) Date Activated Date Inactivated Comments 07/23/2024 8:59 AM 07/27/2024 2:32 PM Question Answer Comments DNR determined on/before admission date? Yes Care Teams Money Laundering Investigator Relationship Specialty Start Date End Date Haroldo Key MD [address] [facility] [place] [address] PCP - General 09/12/20
--- OUTSIDE RECORDS SUMMARY | 2025-04-23 10:19 | XMS_ITS | Encounter Summary ---
Author Organization [employer] ([place], [place], [place], [place], [place]) Address [address] [place] [address] Care Team Providers Care Lube Worker Name Role Phone Unavailable Primary Care Provider Unavailabl e Encounter Details Date Type Department Care Team (Late st Contact Info) Description 07/11/2018 Transcribed Document [facility] Radiology [address] [place] [address] Provider, Layla Acosta MD Social [...] Miscellaneous Notes * Jenniferner Conversion Note - [facility] Karla Rojo MD - [...]
--- OUTSIDE RECORDS SUMMARY | 2025-04-23 10:19 | XMS_ITS | Encounter Summary ---
Author Organization [employer] ([place], [place], [place], [place], [place]) Address [address] [place] [address] Care Team Providers Care Milk Tester Name Role Phone Unavailable Primary Care Provider Unavailabl e Encounter Details Date Type Department Care Team (Late st Contact Info) Description 06/30/2018 Transcribed Document [facility] Radiology [address] [place] [address] Provider, Layla Acosta MD Social [...] Source : Stated Height Entry Format : [place] Height, Feet : 5 ft(Converted to: 152 cm, 60 Inch) Height, Inches : 0 Inch(Converted to: 0 ft 0 Inch, 0.00 cm) Clinical Height : 152.4 cm Weight Source : Standing scale Weight Entry Format : [place] Clinical Dosing Weight : 79.55 kg Weight, Pounds : 175 lb Body Surface Area (BSA) : 1.77 m2 Body Mass Index : 34.3 kg/m2 (HI) [place] Body Weight : 45 kg KENNY BECERRA [...] #2 Relationship : - Primary Language : Bruneian Preferred Communication Mode : Verbal Communication Barrier [...]
--- OUTSIDE RECORDS SUMMARY | 2025-04-23 10:19 | XMS_ITS | Encounter Summary ---
Author Organization [employer] ([place], [place], [place], [place], [place]) Address [address] [place] [address] Care Team Providers Care Student Name Role Phone Unavailable Primary Care Provider Unavailabl e Encounter Details Date Type Department Care Team (Late st Contact Info) Description 07/11/2018 Transcribed Document [facility] Radiology [address] [place] [address] Provider, Layla Acosta MD Social [...]
--- OUTSIDE RECORDS SUMMARY | 2025-04-23 10:19 | XMS_ITS | Encounter Summary ---
Author Organization [employer] ([place], [place], [place], [place], [place]) Address [address] [place] [address] Care Team Providers Care Audio Visual Aide Name Role Phone Unavailable Primary Care Provider Unavailabl e Encounter Details Date Type Department Care Team (Late st Contact Info) Description 07/11/2018 Transcribed Document [facility] Radiology [address] [place] [address] Provider, Layla Acosta MD Social [...] PEREZ, PT - 07/12/2018 11:46 EDT [facility] Basic Mobility Turning Over in Bed : None Sit Down On/Stand Up From Chair w/ Arms : A little Move Back Lying to Sitting Side of Bed : None Moving To/From a Bed to Chair : A little Need to Walk in Hospital Room : A little Climbing 3-5 Steps with a Railing : A little [facility] Basic Mobility Raw Score : 20 [facility] Basic Mobility Standardized Score : 47.67 [facility] Basic Mobility CMS 0-100% Score : [...] NENITA PEREZ PT - 07/12/2018 11:46 EDT Wood Patternmaker Apprentice Goals Other PT LTG Grid Goal #1 [...]
--- OUTSIDE RECORDS SUMMARY | 2025-04-23 10:19 | XMS_ITS | Encounter Summary ---
Author Organization [employer] ([place], [place], [place], [place], [place]) Address [address] [place] [address] Care Team Providers Care Automotive Service Management Teacher Name Role Phone Unavailable Primary Care Provider Unavailabl e Encounter Details Date Type Department Care Team (Late st Contact Info) Description 07/11/2018 Transcribed Document [facility] Radiology [address] [place] [address] Provider, Layla Acosta MD Social [...] Miscellaneous Notes * Cerner Conversion Note - [facility] Karla Rojo MD - 07/11/2018 7:23 PM EDT Care Management Assessment/Plan Entered On: 07/12/2018 18:02 EDT Performed On: 07/12/2018 18:00 EDT by Jessica Cote, Case Management-Laboratory Technology Teacher Care Management Note Care Management Note : pt admitted for tka, pt has her walker, pt has cpm in room, pt plans home with Pending sale to [facility] as she used this agency int he past. pt stated she will have assistance at home. referral sent via [employer] Documentation Status Complete : Yes Jessica Cote Case Management-Laboratory Technology Teacher - 07/12/2018 18:00 EDT Discharge Planning Details Persons Assisting Patient at Home : Spouse Jessica Cote Case Management-Laboratory Technology Teacher - 07/12/2018 18:00 EDT Info/List/Choices Provided Patient Offered Choice/Affiliations Explained : Yes List/Info Provided Pt/Fam/Support Person : Home health Jessica Cote, Case Management-Laboratory Technology Teacher - 07/12/2018 18:00 EDT Final Discharge Disposition Note-CM Discharge To Care Management : Home Health Services (Related/SOC within 3 days)-06 Name of Receiving Facility/Provider-CM : [facility] for cpm Jessica Cote, Case Management-Laboratory Technology Teacher - 07/12/2018 18:00 EDT documented in this encounter Plan of Treatment Not on file documented as of this encounter Visit Diagnoses Not on filedocumented in this encounter
--- OUTSIDE RECORDS SUMMARY | 2025-04-23 10:19 | XMS_ITS | Encounter Summary ---
Author Organization [employer] ([place], [place], [place], [place], [place]) Address [address] [place] [address] Care Team Providers Care Supervisor Fertilizer Processing Name Role Phone Unavailable Primary Care Provider Unavailabl e Encounter Details Date Type Department Care Team (Late st Contact Info) Description 07/30/2019 Transcribed Document [facility] Radiology [address] [place] [address] Provider, Layla Acosta MD Social [...] from sitting : None 7. Bending to floor/parts picker an object : None WINSOME PATEL [...]
--- OUTSIDE RECORDS SUMMARY | 2025-04-23 10:19 | XMS_ITS | Encounter Summary ---
Author Organization [employer] ([place], [place], [place], [place], [place]) Address [address] [place] [address] Care Team Providers Care Dock Worker Name Role Phone Unavailable Primary Care Provider Unavailabl e Encounter Details Date Type Department Care Team (Late st Contact Info) Description 07/11/2018 Transcribed Document [facility] Radiology [address] [place] [address] ProviderLayla MD Social History Tobacco [...] Miscellaneous Notes * Cerner Conversion Note - [facility] Karla Rojo MD - 07/11/2018 11:11 PM [...]
--- OUTSIDE RECORDS SUMMARY | 2025-04-23 10:19 | XMS_ITS | Encounter Summary ---
Author Organization [employer] ([place], [place], [place], [place], [place]) Address [address] [place] [address] Care Team Providers Care State Assessed Properties Director Name Role Phone Unavailable Primary Care Provider Unavailabl e Encounter Details Date Type Department Care Team (Late st Contact Info) Description 07/11/2018 Transcribed Document [facility] Radiology [address] [place] [address] ProviderLayla MD Social History Tobacco [...] Miscellaneous Notes * Aman Conversion Note - [facility] Karla Rojo MD - 07/11/2018 8:00 PM [...] EDT Pain Scale Intensity : 1 Trudi aMo RN - 07/11/2018 23:53 EDT Image 4 - Images currently included in the form version of this document have not been included in the text rendition version of the form. documented in this encounter Plan of Treatment Not on file documented as of this encounter Visit Diagnoses Not on filedocumented in this encounter
--- OUTSIDE RECORDS SUMMARY | 2025-04-23 10:19 | XMS_ITS | Encounter Summary ---
Author Organization [employer] ([place], [place], [place], [place], [place]) Address [address] [place] [address] Care Team Providers Care Staff Registered Nurse Name Role Phone Unavailable Primary Care Provider Unavailabl e Encounter Details Date Type Department Care Team (Late st Contact Info) Description 06/27/2018 Transcribed Document [facility] Radiology [address] [place] [address] ProviderLayla MD Social History Tobacco [...] [facility] Rojo MD - 06/27/2018 8:41 PM EST Orthopedic Nurse Navigator Entered On: 07/10/2018 6:52 EDT Performed On: 06/27/2018 19:41 EST by Carlyn Temple livestock showman Nurse Navigator Assessment Attended Joint Academy : Yes Joint AcademyType : Online Joint Academy Date : 06/27/2018 EST Carlyn Temple RN - 07/10/2018 6:52 EDT Electronically signed by Jorge Luis [facility] Conversion Process Improvement Specialist Cerner at 09/22/2022 11:00 AM CDT documented in this encounter Plan of Treatment Not on file documented as of this encounter Visit Diagnoses Not on filedocumented in this encounter
--- OUTSIDE RECORDS SUMMARY | 2025-04-23 10:19 | XMS_ITS | Encounter Summary ---
Author Organization [employer] ([place], [place], [place], [place], [place]) Address [address] [place] [address] Care Team Providers Care Sales Support Representative Name Role Phone Unavailable Primary Care Provider Unavailabl e Encounter Details Date Type Department Care Team (Late st Contact Info) Description 07/11/2018 Transcribed Document [facility] Radiology [address] [place] [address] ProviderLayla MD Social History Tobacco [...] - [facility] Karla Rojo MD - 07/11/2018 [...]
--- OUTSIDE RECORDS SUMMARY | 2025-04-23 10:19 | XMS_ITS | Encounter Summary ---
Author Organization [email or web address] ([place], [place], [place], [place], [place]) Address [address] [place] [address] Care Team Providers Care Qa Consultant Name Role Phone Unavailable Primary Care Provider Unavailabl e Encounter Details Date Type Department Care Team (Late st Contact Info) Description 07/11/2018 Transcribed Document [facility] Radiology [address] [place] [address] Provider, Layla Acosta MD Social [...] Obtained From : Patient Primary Language : Citizen Of [place] Preferred Communication Mode : Verbal Communication Barrier [...] Scale Risk Level : 25-45 Medium Risk Norman Fall Interventions : Adequate lighting, Bed in [...] of Topic : Good Teaching Method : Patrol Lady Learning Style Preferences Family : Printed materials, [...] Source : Stated Height Entry Format : Baldwin Height, Feet : 5 ft(Converted to: 152 cm, 60 Inch) Height, Inches : 0 Inch(Converted to: 0 ft 0 Inch, 0.00 cm) Clinical Height : 152.4 cm Weight Source : Standing scale Weight Entry Format : [place] Clinical Dosing Weight : 73.09 kg Weight, Pounds : 160.8 lb Body Surface Area (BSA) : 1.7 m2 Body Mass Index : 31.5 kg/m2 (HI) [place] Body Weight : 45 kg Aline Fabian [...]
--- OUTSIDE RECORDS SUMMARY | 2025-04-23 10:19 | XMS_ITS | Clinical Summary ---
Author Organization [employer] ([place], [place], [place], [place], [place]) Address [address] [place] [address] Care Team Providers Care Move Coordinator Name Role Phone Unavailable Primary Care [...]
--- OUTSIDE RECORDS SUMMARY | 2025-04-23 10:19 | XMS_ITS | Encounter Summary ---
Author Organization [employer] ([place], [place], [place], [place], [place]) Address [address] [place] [address] Care Team Providers Care Plaster Machine Operator Name Role Phone Unavailable Primary Care Provider Unavailabl e Encounter Details Date Type Department Care Team (Late st Contact Info) Description 07/11/2018 Transcribed Document [facility] Radiology [address] [place] [address] Provider, Layla Acosta MD Social [...]
--- OUTSIDE RECORDS SUMMARY | 2025-04-23 10:19 | XMS_ITS | Referral Summary ---
Author Organization [employer] ([place], [place], [place], [place], [place]) Address [address] [place] [address] Care Team Providers Care Enterprise Data Architect Name Role Phone Unavailable Primary Care [...]
--- OUTSIDE RECORDS SUMMARY | 2025-04-23 10:19 | XMS_ITS | Encounter Summary ---
Author Organization [email or web address] ([place], [place], [place], [place], [place]) Address [address] [place] [address] Care Team Providers Care Mechanic'S Assistant Name Role Phone Unavailable Primary Care Provider Unavailabl e Encounter Details Date Type Department Care Team (Late st Contact Info) Description 07/11/2018 Transcribed Document [facility] Radiology [address] [place] [address] Provider, Layla Acosta MD Social [...] 20:31 EDT Electronically signed by Jorge Luis [facility] Conversion Production Laborer Cerner at 09/22/2022 11:00 AM CDT documented in this encounter Plan of Treatment Not on file documented as of this encounter Visit Diagnoses Not on filedocumented in this encounter
--- OUTSIDE RECORDS SUMMARY | 2025-04-23 10:19 | XMS_ITS | Encounter Summary ---
Author Organization [employer] ([place], [place], [place], [place], [place]) Address [address] [place] [address] Care Team Providers Care Blade Groover Name Role Phone Unavailable Primary Care Provider Unavailabl e Encounter Details Date Type Department Care Team (Late st Contact Info) Description 07/11/2018 Transcribed Document [facility] Radiology [address] [place] [address] Provider, Layla Acosta MD Social [...] Cerner Conversion Note - [facility] Karla Rojo MD - 07/11/2018 3:47 PM EDT [facility] Main OR PACU Summary Primary Physician: FREDERIC ADAMS MD-ORT Finalized Date/Time: 07/11/18 18:08:25 Pt. Name: MACI FLOROrly Royal/Sex: 1945 Female Med Rec #: [id number] Physician: FREDERIC ADAMS MD-ORT Financial #: [id number] Pt. Type: O Room/Bed: 508/1 Admit/Disch: 07/11/18 04:54:00 - Institution: [facility] Main OR PACU Case Times Entry 1 In PACU I 07/11/18 16:03:00 Ready for PACU 07/11/18 17:03:00 Discharge Discharge from PACU 07/11/18 17:43:00 I Last Modified By: Mayra Cunningham Rn Patient Care Bedside 07/11/18 18:08:09 [facility] Main OR PACU Case Times Audit 07/11/18 18:08:09 Bulk Driver: BARRERA Modifier: MAYRABORIS <+> 1 Ready for [...] 07/11/18 18:08 Electronically signed by Jorge Luis [facility] Conversion Promotions Associate Cerner at 09/22/2022 11:00 AM CDT documented in this encounter Plan of Treatment Not on file documented as of this encounter Visit Diagnoses Not on filedocumented in this encounter
--- OUTSIDE RECORDS SUMMARY | 2025-04-23 10:19 | XMS_ITS | Encounter Summary ---
Author Organization [employer] ([place], [place], [place], [place], [place]) Address [address] [place] [address] Care Team Providers Care Supervisor Steffen House Name Role Phone Unavailable Primary Care Provider Unavailabl e Encounter Details Date Type Department Care Team (Late st Contact Info) Description 07/11/2018 Transcribed Document [facility] Radiology [address] [place] [address] ProviderLayla MD Social History Tobacco [...] Notes * Cerner Conversion Note - [facility] Karla Rojo MD - 07/11/2018 3:59 PM [...]
--- OUTSIDE RECORDS SUMMARY | 2025-04-23 10:19 | XMS_ITS | Encounter Summary ---
Author Organization [employer] ([place], [place], [place], [place], [place]) Address [address] [place] [address] Care Team Providers Care Peg Driver Name Role Phone Unavailable Primary Care Provider Unavailabl e Encounter Details Date Type Department Care Team (Late st Contact Info) Description 07/11/2018 Transcribed Document [facility] Radiology [address] [place] [address] Provider, Layla Acosta MD Social [...] 07/11/2018 11:08 EDT by Goldie Dexter Patient Electrical And Radio Aircraft Mechanic Height and Weight, Clinical Dosing Height Source : Stated Height Entry Format : [place] Height, Feet : 5 ft(Converted to: 152 cm, 60 Inch) Height, Inches : 0 Inch(Converted to: 0 ft 0 Inch, 0.00 cm) Clinical Height : 152.4 cm Weight Source : Standing scale Weight Entry Format : [place] Clinical Dosing Weight : 73.09 kg Weight, Pounds : 160.8 lb Body Surface Area (BSA) : 1.7 m2 Body Mass Index : 31.5 kg/m2 (HI) [place] Body Weight : 45 kg Brown, Goldie N, Patient Electrical And Radio Aircraft Mechanic - 07/11/2018 11:08 EDT Electronically signed by Jorge Luis, [facility] Conversion Packaging Inspector Cerner at 09/22/2022 11:00 AM CDT documented in this encounter Plan of Treatment Not on file documented as of this encounter Visit Diagnoses Not on filedocumented in this encounter
--- OUTSIDE RECORDS SUMMARY | 2025-04-23 10:19 | XMS_ITS | Encounter Summary ---
Author Organization [employer] ([place], [place], [place], [place], [place]) Address [address] [place] [address] Care Team Providers Care Orchard Manager Name Role Phone Unavailable Primary Care Provider Unavailabl e Encounter Details Date Type Department Care Team (Late st Contact Info) Description 07/11/2018 Transcribed Document [facility] Radiology [address] [place] [address] Provider, Layla Acosta MD Social [...] Source : Stated Height Entry Format : Bureau Height, Feet : 5 ft(Converted to: 152 cm, 60 Inch) Height, Inches : 0 Inch(Converted to: 0 ft 0 Inch, 0.00 cm) Clinical Height : 152.4 cm Weight Source : Standing scale Weight Entry Format : Bureau Clinical Dosing Weight : 73.09 kg Weight, Pounds : 160.8 lb Body Surface Area (BSA) : 1.7 m2 Body Mass Index : 31.5 kg/m2 (HI) [place] Body Weight : 45 kg RUBY ARIZA [...] Obtained From : Patient Primary Language : Japanese Preferred Communication Mode : Verbal Communication Barrier [...] Level : 46 or > High Risk Lorman Fall Interventions : Adequate lighting, Bed in [...] the text rendition version of the form. Sarah Ann Coma Sarah Ann Best Motor Response : Obey commands Kirstin Best Verbal Response : Oriented Kirstin Eye Opening Response : Spontaneous Kirstin Coma Score : 15 RUBY ARIZA RN - 07/11/2018 13:16 EDT documented in this encounter Plan of Treatment Not on file documented as of this encounter Visit Diagnoses Not on filedocumented in this encounter
--- OUTSIDE RECORDS SUMMARY | 2025-04-23 10:19 | XMS_ITS | Encounter Summary ---
Author Organization [employer] ([place], [place], [place], [place], [place]) Address [address] [place] [address] Care Team Providers Care Paper Baling Machine Operator Name Role Phone Unavailable Primary Care Provider Unavailabl e Encounter Details Date Type Department Care Team (Late st Contact Info) Description 07/11/2018 Transcribed Document [facility] Radiology [address] [place] [address] Provider, Layla Acosta MD [...] FLOROrly Royal/Sex: 1945 Female Med Rec #: [id number] Physician: FREDERIC ADAMS MD-ORT Financial #: [id number] Pt. Type: O Room/Bed: [facility]/8 Admit/Disch: 07/11/18 04:54:00 - Institution: [facility] PreOp Case Times Entry 1 In Preop 07/11/18 10:40:00 Ready for Holding n/a Room Patient Ready for 07/11/18 13:24:00 Surgery Patient Out of Preop 07/11/18 14:09:00 Patient Out of n/a Holding Room Last Modified By: IFRAH CLAIRE 07/11/18 15:05:10 [facility] PreOp Case Times Audit 07/11/18 15:05:10 Otolaryngology Teacher: DAYNAM Modifier: [email or web address] <+> 1 Patient Out of Preop 07/11/18 13:45:10 Otolaryngology Teacher: [id number] Modifier: DAYNAM <+> 1 Patient Ready for Surgery Finalized By: IFRAH CLAIRE Document Signatures Signed By: IFRAH CLAIRE 07/11/18 15:05 Electronically signed by Jorge Luis [facility] Conversion Waiter/Waitress Informal Cerner at 09/22/2022 11:00 AM CDT documented in this encounter Plan of Treatment Not on file documented as of this encounter Visit Diagnoses Not on filedocumented in this encounter
--- OUTSIDE RECORDS SUMMARY | 2025-04-23 10:19 | XMS_ITS | Encounter Summary ---
Author Organization [employer] ([place], [place], [place], [place], [place]) Address [address] [place] [address] Care Team Providers Care Case Checker Name Role Phone Unavailable Primary Care Provider Unavailabl e Encounter Details Date Type Department Care Team (Late st Contact Info) Description 07/30/2019 Transcribed Document [facility] Radiology [address] [place] [address] ProviderLayla MD Social History Tobacco [...] [facility] Karla Rojo MD - 07/30/2019 11:42 AM EDT Orthopedic Nurse Navigator Entered On: 07/30/2019 10:42 EDT Performed On: 07/30/2019 10:42 EDT by Marion Farias Nurse gambreler helper Nurse Navigator Assessment Joint Navigator Assessment Note : 1 year post op surveys. Marion Farias Nurse RN - 07/30/2019 10:42 EDT documented in this encounter Plan of Treatment Not on file documented as of this encounter Visit Diagnoses Not on filedocumented in this encounter
--- OUTSIDE RECORDS SUMMARY | 2025-04-23 10:19 | XMS_ITS | Encounter Summary ---
Author Organization [facility] Address [address] [place] [address] Care Team Providers Care Mine Technician Name Role Phone Haroldo Key MD Primary Care Provider [phone] Encounter Details Date Type Department Care Team [...] often do you attend chur ch or anabaptist services? Never 07/25/2024 Do you belong to any clubs o r organizations such as anglican groups, unions, fraternal or athletic groups, or [...] more drinks on one occasion? Never 07/25/2024 [facility] - Occupational Stress Questionnaire Answer Date [...] were you homeless or living in a care home (including now)? No 07/25/2024 Utilities Answer Date [...] Description 06/04/2025 1:30 PM EST [facility] [address] [place] [address] Lucila Johnson APRN [address] [facility] [address] [place] [address] documented as of this encounter Visit Diagnoses Not on filedocumented in this encounter Additional Health Concerns Assessment Noted Time A Body Mass Index follow-up plan has been documented for the patient 02/27/2025 3:31 PM EDT documented as of this encounter Care Teams Mine Technician Relationship Specialty Start Date End Date Haroldo Key MD [address] [place] [address] PCP - General 09/12/20 documented as of this encounter
--- OUTSIDE RECORDS SUMMARY | 2025-04-23 10:19 | XMS_ITS | Encounter Summary ---
Author Organization [employer] ([place], [place], [place], [place], [place]) Address [address] [place] [address] Care Team Providers Care Mechanical Service Specialist Name Role Phone Unavailable Primary Care Provider Unavailabl e Encounter Details Date Type Department Care Team (Late st Contact Info) Description 07/11/2018 Transcribed Document [facility] Radiology [address] [place] [address] Provider, Layla Acosta MD Social [...] Gudino M.D. Electronically signed by Jorge Luis [facility] Conversion Optical Element Coater Cerner at 09/22/2022 11:00 AM CDT documented in this encounter Plan of Treatment Not on file documented as of this encounter Visit Diagnoses Not on filedocumented in this encounter
--- OUTSIDE RECORDS SUMMARY | 2025-04-23 10:20 | XMS_ITS ---
Laboratory report Created on: April 02, 2025 JOAN LUX : 1945 Sex: Female Author Organization Unknown PROBLEMS Problems List Code Description RESULTS Laboratory Orders Date Order Code Test 2024-08-10 [id number] LEVETIRACETAM (K EPPRA), S Laboratory Results Date LOINC Test Value Unit Reference Range Interpre tation 2024-08-10 [id number] LEVETIRACETAM, S 19.4 UG/ML 10.0-40.0
--- OUTSIDE RECORDS SUMMARY | 2025-04-23 10:20 | XMS_ITS | Encounter Summary ---
Author Organization [employer] ([place], [place], [place], [place], [place]) Address [address] [place] [address] Care Team Providers Care Oven Baker Name Role Phone Unavailable Primary Care Provider Unavailabl e Encounter Details Date Type Department Care Team (Late st Contact Info) Description 07/12/2018 Transcribed Document [facility] Radiology [address] [place] [address] ProviderLayla MD Social History Tobacco [...] - [facility] Karla Rojo MD - 07/12/2018 7:06 PM EDT Discharge Instructions Entered On: 07/12/2018 18:07 EDT Performed On: 07/12/2018 18:06 EDT by Jessica Cote, Case Management-Firer Low Pressure DC Instructions HWD Medical Equipment For Home Use : BLUEGRASS BRACING FOR CPM RENTAL Home Health Services : [facility] [phone] Jessica Cote, Case Management-Firer Low Pressure - 07/12/2018 18:06 EDT documented in this encounter Plan of Treatment Not on file documented as of this encounter Visit Diagnoses Not on filedocumented in this encounter
--- OUTSIDE RECORDS SUMMARY | 2025-04-23 10:20 | XMS_ITS | Encounter Summary ---
Author Organization [employer] ([place], [place], [place], [place], [place]) Address [address] [place] [address] Care Team Providers Care Dragger Name Role Phone Unavailable Primary Care Provider Unavailabl e Encounter Details Date Type Department Care Team (Late st Contact Info) Description 07/13/2018 Transcribed Document [facility] Radiology [address] [place] [address] Provider, Layla Acosta MD Social [...] Conversion Note - meryl Rojo MD - 07/13/2018 11:47 AM EDT [...]
--- OUTSIDE RECORDS SUMMARY | 2025-04-23 10:20 | XMS_ITS | Encounter Summary ---
Author Organization [employer] ([place], [place], [place], [place], [place]) Address [address] [place] [address] Care Team Providers Care Auto Winder Name Role Phone Unavailable Primary Care Provider Unavailabl e Encounter Details Date Type Department Care Team (Late st Contact Info) Description 07/13/2018 Transcribed Document [facility] Radiology [address] [place] [address] Provider, Layla Acosta MD Social [...] Barley. Bulgur wheat. Millet. Bran muffins. Popcorn. [place] wafer crackers. ?? Vegetables Sweet potatoes. Spinach. Kale. Artichokes. Cabbage. Broccoli. Green peas. Carrots. Squash. ?? Fruits Berries. Pears. Apples. Oranges. Avocados. Prunes and raisins. Dried figs. ?? Meats and Other Protein Sources Bodfish, kidney, hoff, and soy beans. Split peas. [...] alphonso has 11 g of protein. ?? Borden seeds ??? 1 oz has 5.5 g [...] floor. ?? Place frequently used items in kqjf-hu-araal places ?? Keep electrical cables out of [...] ? Using the bathroom. ? Using household change booth attendant or toxic chemicals. ? Touching or taking [...]
--- OUTSIDE RECORDS SUMMARY | 2025-04-23 10:20 | XMS_ITS | Encounter Summary ---
Author Organization [employer] ([place], [place], [place], [place], [place]) Address [address] [place] [address] Care Team Providers Care Slater Apprentice Name Role Phone Unavailable Primary Care Provider Unavailabl e Encounter Details Date Type Department Care Team (Late st Contact Info) Description 07/12/2018 Transcribed Document [facility] Radiology [address] [place] [address] Provider, Layla Acosta MD Social [...] form. Electronically signed by Layla Kang Conversion Warehouse Administrative Assistant Cerner at 09/22/2022 11:00 AM CDT documented in this encounter Plan of Treatment Not on file documented as of this encounter Visit Diagnoses Not on filedocumented in this encounter
--- OUTSIDE RECORDS SUMMARY | 2025-04-23 10:20 | XMS_ITS | Encounter Summary ---
Author Organization [employer] ([place], [place], [place], [place], [place]) Address [address] [place] [address] Care Team Providers Care Membership Counselor Name Role Phone Unavailable Primary Care Provider Unavailabl e Encounter Details Date Type Department Care Team (Late st Contact Info) Description 07/13/2018 Transcribed Document [facility] Radiology 1 [place] [address] Provider, Layla Acosta MD Social [...] On: 07/13/2018 10:08 EDT by Nany Walker, Life Underwriter Lead General Information, PT Visit Type, PT [...] within reach, Other: ICE, SCUDS. Nany Walker Life Underwriter Lead - 07/13/2018 13:09 EDT RN/PCT Informed [...] Established w Patient : Yes Nany Walker Life Underwriter Lead - 07/13/2018 12:22 EDT Lumber Sorter Goals Other PT LTG Grid Goal #1 Goal #2 Other : Patient will participate in ther ex training for improved strength with gait and transfers. Patient will complete 2 steps with left rail and min assist for safe access to home at discharge. Date to Meet : 07/15/2018 EDT 07/15/2018 EDT Goal Status : Goal met Goal met Nany Walker Life Underwriter Lead - 07/13/2018 12:22 EDT Nany Walker Life Underwriter Lead - 07/13/2018 12:22 EDT Treatment Note Subjective Comment : Pt agreeable to therapy. Nany Walker Life Underwriter Lead - 07/13/2018 13:09 EDT Patient's Response to Treatment : Good. Nany Walker Life Underwriter Lead - 07/13/2018 12:22 EDT Additional Objective [...] therex, 13min gait, 10min theract Nany Walker Life Underwriter Lead - 07/13/2018 13:09 EDT Assessment : Pt met goal #1, #2. Plan for Treatment : Home today with family assistance and HHPT. Nany Walker Life Underwriter Lead - 07/13/2018 12:22 EDT Pain Assessment Pain Scaled Used : 0-10 Pain scale Pain Score Pre-Intervention : 4 Pain Score During-Intervention : 8 Pain Score Post-Intervention. : 6 Pain Comment : 10/09 pain, nurse aware. Nany Walker Life Underwriter Lead - 07/13/2018 12:22 EDT Image 1 - Images currently included in the form version of this document have not been included in the text rendition version of the form. [place] PT Charges PT Therap. Exercise 15 min : 3 PT Ther Activities Ea 15 Min : 1 Gait Training Each 15 Min : 1 Nany Walker Life Underwriter Lead - 07/13/2018 12:22 EDT documented in this encounter Plan of Treatment Not on file documented as of this encounter Visit Diagnoses Not on filedocumented in this encounter
--- OUTSIDE RECORDS SUMMARY | 2025-04-23 10:20 | XMS_ITS | Encounter Summary ---
Author Organization [employer] ([place], [place], [place], [place], [place]) Address [address] [place] [address] Care Team Providers Care Travel Attendants Name Role Phone Unavailable Primary Care Provider Unavailabl e Encounter Details Date Type Department Care Team (Late st Contact Info) Description 07/18/2018 Transcribed Document [facility] Radiology [address] [place] [address] Provider, Layla Acosta MD Social [...] [ ] Surgical procedure/ Evaluation [ ] CDS/Superintendent Greens Signature: Edgar Horne Phone #: _[phone]__ Date/Time: _07/18/2018 11:53 AM_ This is a permanent part of the Medical Record documented in this encounter Plan of Treatment Not on file documented as of this encounter Visit Diagnoses Not on filedocumented in this encounter
--- OUTSIDE RECORDS SUMMARY | 2025-04-23 10:20 | XMS_ITS | Encounter Summary ---
Author Organization [employer] ([place], [place], [place], [place], [place]) Address [address] [place] [address] Care Team Providers Care Silverer Name Role Phone Unavailable Primary Care Provider Unavailabl e Encounter Details Date Type Department Care Team (Late st Contact Info) Description 07/12/[address] [facility] Radiology 1 [place] [address] Provider, Layla Acosta MD Social [...]
--- OUTSIDE RECORDS SUMMARY | 2025-04-23 10:20 | XMS_ITS | Encounter Summary ---
Author Organization [employer] ([place], [place], [place], [place], [place]) Address [address] [place] [address] Care Team Providers Care Podopediatrician Name Role Phone Unavailable Primary Care Provider Unavailabl e Encounter Details Date Type Department Care Team (Late st Contact Info) Description 07/12/2018 Transcribed Document [facility] Radiology [address] [place] [address] Provider, Layla Acosta MD Social [...] No Pain Improved by : Medication Gaby oLera RN - 07/12/2018 18:56 EDT Pain Scale Intensity : 2 Gaby Loera RN - 07/12/2018 18:56 EDT Image 4 - Images currently included in the form version of this document have not been included in the text rendition version of the form. Electronically signed by Layla Kang Conversion Service Coordinator Elderly Facility Cerner at 09/22/2022 11:00 AM CDT documented in this encounter Plan of Treatment Not on file documented as of this encounter Visit Diagnoses Not on filedocumented in this encounter
--- OUTSIDE RECORDS SUMMARY | 2025-04-23 10:20 | XMS_ITS | Encounter Summary ---
Author Organization [employer] ([place], [place], [place], [place], [place]) Address [address] [place] [address] Care Team Providers Care Solar Project Manager Name Role Phone Unavailable Primary Care Provider Unavailabl e Encounter Details Date Type Department Care Team (Late st Contact Info) Description 07/13/[address] [facility] Radiology 1 [place] [address] Provider, Layla Acosta MD [...] 9. Hyperlipidemia. DISCHARGE INSTRUCTIONS: Diet: According to [place] [employer]. ACTIVITIES: As tolerated and as [...] think she will go back to her application spec. 3. Diabetes mellitus. Resume home medication. 4. [...]
--- OUTSIDE RECORDS SUMMARY | 2025-04-23 10:20 | XMS_ITS | Encounter Summary ---
Author Organization [employer] ([place], [place], [place], [place], [place]) Address [address] [place] [address] Care Team Providers Care Volunteer Firefighter Name Role Phone Unavailable Primary Care Provider Unavailabl e Encounter Details Date Type Department Care Team (Late st Contact Info) Description 07/13/2018 Transcribed Document [facility] Radiology 1 [place] [address] Provider, Layla Acosta MD Social [...] * Cerner Conversion Note - [facility] Karla ProviderMD - 07/13/2018 3:00 AM EDT Review Nurse Details Entered On: 07/13/2018 1:01 EDT Performed [...]
--- OUTSIDE RECORDS SUMMARY | 2025-04-23 10:20 | XMS_ITS | Encounter Summary ---
Author Organization [employer] ([place], [place], [place], [place], [place]) Address [address] [place] [address] Care Team Providers Care Fur Blowing Machine Attendant Name Role Phone Unavailable Primary Care Provider Unavailabl e Encounter Details Date Type Department Care Team (Late st Contact Info) Description 07/12/2018 Transcribed Document [facility] Radiology 1 [place] [address] Provider, Layla Acosta MD Social [...] LOW 07/12/2018 05:06 Creatinine Level 2.74 mg/dL NC 07/12/2018 05:06 eGFR 21 mL/min/1.73m2 LOW 07/12/2018 05:06 Bun/Creatinine 11.3 07/12/2018 05:06 Sodium Level 133 mmol/L LOW 07/12/2018 05:06 Potassium Level 5.7 mmol/L NC 07/12/2018 05:06 Chloride Level 104 mmol/L 07/12/2018 05:06 Carbon Dioxide Level 21 mmol/L 07/12/2018 05:06 Anion Gap 14 07/12/2018 05:06 Blood Urea Nitrogen 31 mg/dL NC 07/12/2018 05:06 Glucose Level 366 mg/dL NC 07/12/2018 05:06 Calcium Level 8.2 mg/dL LOW [...]
--- OUTSIDE RECORDS SUMMARY | 2025-04-23 10:20 | XMS_ITS | Encounter Summary ---
Author Organization [employer] ([place], [place], [place], [place], [place]) Address [address] [place] [address] Care Team Providers Care Supervisor Front Name Role Phone Unavailable Primary Care Provider Unavailabl e Encounter Details Date Type Department Care Team (Late st Contact Info) Description 07/13/2018 Transcribed Document [facility] Radiology [address] [place] [address] Provider, Layla [...] Notes * Cerner Conversion Note - [facility] Karla Rojo MD - 07/13/2018 11:48 AM EDT [facility] [address], [place] [address] Patient Copy Patient Information: Name: FLOR LUX Current Date: 07/13/2018 10:48:09 : 1945 Patient Address: [place] [address] Patient Attending Physician: FREDERIC ADAMS MD-ORT Primary [...] 3 days With: Address: When: DEYSI MEJIA [address] [facility] [facility] [place] [address] [facility] (1) 11:15 AM Comments: Appointment has been made Discharge Instructions: Medical Equipment for Home Use: BLUEGRASS BRACING FOR CPM RENTAL Home Health Services: [facility] [phone] Immunizations Documented During Stay: No Immunizations Found [...] Barley. Bulgur wheat. Millet. Bran muffins. Popcorn. [place] wafer crackers. ?? Vegetables Sweet potatoes. Spinach. Kale. Artichokes. Cabbage. Broccoli. Green peas. Carrots. Squash. ?? Fruits Berries. Pears. Apples. Oranges. Avocados. Prunes and raisins. Dried figs. ?? Meats and Other Protein Sources [place], kidney, hoff, and soy beans. Split peas. [...] alphonso has 11 g of protein. ?? [place] seeds ??? 1 oz has 5.5 g [...] floor. ?? Place frequently used items in gbem-tt-ykvje places ?? Keep electrical cables out of [...] ? Using the bathroom. ? Using household white metal caster or toxic chemicals. ? Touching or taking [...] a day sleeper or work a overnight caregiver. Some people have thoughts about suicide while [...] may report side effects to FDA at 2-816-LBK-9457. What other drugs will affect gabapentin? Taking gabapentin with other drugs that make you sleepy can worsen this effect. Ask your doctor before taking a sleeping pill, narcotic medication, muscle relaxer, or medicine for anxiety, depression, or seizures. Other drugs may interact with gabapentin, including prescription and xrfb-ufo-msvdoef medicines, vitamins, and herbal products. Tell your [...] to ensure that the information provided by [employer]. ('Multum') is accurate, up-to-date, and complete, but no guarantee is made to that effect. Drug information contained herein may be time sensitive. Meddle information has been compiled for use by healthcare practitioners and consumers in the [place] and therefore Meddle does not warrant that uses outside of the [place] are appropriate, unless specifically indicated otherwise. LETSGROOPs drug information does not endorse drugs, diagnose patients or recommend therapy. LETS[employer]OOPs drug information is an informational resource designed [...] effective or appropriate for any given patient. Meddle does not assume any responsibility for any aspect of healthcare administered with the aid of information [facility] provides. The information contained herein is not intended to cover all possible uses, directions, precautions, warnings, drug interactions, allergic reactions, or adverse effects. If you have questions about the drugs you are taking, check with your doctor, nurse or pharmacist. Copyright 6698-6074 [employer]. Version: 14.01. Revision Date: 02/08/2017. oxycodone (ox [...] The extended-release form of oxycodone is for pjavaf-ghq-mqeju treatment of pain and should not be [...] against the law. Stop taking all other jxfjdh-nwv-tbsnk narcotic pain medicines when you start taking [...] may report side effects to FDA at 0-123-VTN-2180. What other drugs will affect oxycodone? You [...] may affect oxycodone. This includes prescription and cgcq-pku-ekampdc medicines, vitamins, and herbal products. Not all [...] to ensure that the information provided by [employer]. ('Multum') is accurate, up-to-date, and complete, but no guarantee is made to that effect. Drug information contained herein may be time sensitive. Meddle information has been compiled for use by healthcare practitioners and consumers in the [place] and therefore Meddle does not warrant that uses outside of the [place] are appropriate, unless specifically indicated otherwise. LETSGROOPs drug information does not endorse drugs, diagnose patients or recommend therapy. LETSGROOPs drug information is an informational resource designed [...] effective or appropriate for any given patient. [facility] does not assume any responsibility for any aspect of healthcare administered with the aid of information [facility] provides. The information contained herein is not intended to cover all possible uses, directions, precautions, warnings, drug interactions, allergic reactions, or adverse effects. If you have questions about the drugs you are taking, check with your doctor, nurse or pharmacist. Copyright 3071-6136 [employer] [facility] [employer]. Version: 13.02. Revision Date: 03/29/2018. tramadol (TRAM [...] extended-release form of this medicine is for fcsiuc-zye-mkjga treatment of pain. This form of tramadol [...] against the law. Stop taking all other ueitqi-ked-kpncv narcotic pain medications when you start taking [...] may report side effects to FDA at 0-962-VEL-4687. What other drugs will affect tramadol? You [...] may affect tramadol. This includes prescription and exta-zwa-abzygxb medicines, vitamins, and herbal products. Not all [...] to ensure that the information provided by [employer]. ('Multum') is accurate, up-to-date, and complete, but no guarantee is made to that effect. Drug information contained herein may be time sensitive. Meddle information has been compiled for use by healthcare practitioners and consumers in the [place] and therefore Meddle does not warrant that uses outside of the [place] are appropriate, unless specifically indicated otherwise. Multum's drug information does not endorse drugs, diagnose patients or recommend therapy. Y[employer] drug information is an informational resource designed [...] effective or appropriate for any given patient. [employer] does not assume any responsibility for any aspect of healthcare administered with the aid of information Meddle provides. The information contained herein is not intended to cover all possible uses, directions, precautions, warnings, drug interactions, allergic reactions, or adverse effects. If you have questions about the drugs you are taking, check with your doctor, nurse or pharmacist. Copyright 2286-9090 [employer]. Version: 18.02. Revision Date: 03/29/2018. CIGARETTE SMOKING: The facts are clear, cigarette smoking will shorten your life. Smoking can cause many illnesses along the way. As a healthcare provider, we recommend that you stop smoking. Assistance with quitting is available by contacting 4-596-YBHZ-NOW. This is a free resource providing counseling, [...] Be sure to sign up for the [employer] patient portal, which gives you 22/11 access to your medical information ??? including these discharge instructions ??? using your computer, smartphone, or tablet. Just go to [employer]Fox to get started. Questions? Call . [facility] would like to thank you for allowing us to assist you with your healthcare needs. IMACI RITA MOR, (or appliance service representative) have received the above patient education materials/instructions and have verbalized understanding: Patient Signature _ Date/Time Patient Patch Driller Signature (if needed) Date/Time Clinician/Hospital Patch Driller Signature (if needed) Date/Time Electronically signed by Jorge Luis, [facility] Conversion Online Advertising Director Cerner at 09/22/2022 11:00 AM CDT documented in this encounter Plan of Treatment Not on file documented as of this encounter Visit Diagnoses Not on filedocumented in this encounter
--- OUTSIDE RECORDS SUMMARY | 2025-04-23 10:20 | XMS_ITS | Encounter Summary ---
Author Organization [employer] ([place], [place], [place], [place], [place]) Address [address] [place] [address] Care Team Providers Care Patient Svcs Mgr Name Role Phone Unavailable Primary Care Provider Unavailabl e Encounter Details Date Type Department Care Team (Late st Contact Info) Description 07/13/2018 Transcribed Document [facility] Radiology 1 [place] [address] Provider, Layla Acosta MD [...] * Cerner Conversion Note - [facility] Karla Rojo MD - 07/13/2018 12:48 PM EDT [facility] [address], [place] [address] Patient Copy Patient Information: Name: FLOR LUX Current Date: 07/13/2018 11:48:22 : 1945 Patient Address: [place] [address] Patient Attending Physician: FREDERIC ADAMS MD-ORT Primary Care Provider: RODO SANFORD [facility] Primary Care Provider Discharge Diagnosis: Weakness Weight on Admission: 175 lb, 0 oz Comment: Follow-up Instructions: With: Address: When: Follow up with specialty services Within 2 to 3 days Comments: Nephrology With: Address: When: Follow up with primary care provider Within 2 to 3 days With: Address: When: DEYSI MEJIA [address] [facility] [facility] [place] [address] [facility] (1) 11:15 AM Comments: Appointment has been made Discharge Instructions: Medical Equipment for Home Use: BLUEGRASS BRACING FOR CPM RENTAL Home Health Services: [facility] [phone] Immunizations Documented During Stay: No Immunizations Found [...] Barley. Bulgur wheat. Millet. Bran muffins. Popcorn. [place] wafer crackers. ?? Vegetables Sweet potatoes. Spinach. Kale. Artichokes. Cabbage. Broccoli. Green peas. Carrots. Squash. ?? Fruits Berries. Pears. Apples. Oranges. Avocados. Prunes and raisins. Dried figs. ?? Meats and Other Protein Sources [place], kidney, hoff, and soy beans. Split peas. [...] alphonso has 11 g of protein. ?? [place] seeds ??? 1 oz has 5.5 g [...] floor. ?? Place frequently used items in kehs-cv-cgbfw places ?? Keep electrical cables out of [...] ? Using the bathroom. ? Using household food safety technician or toxic chemicals. ? Touching or taking [...] a day sleeper or work a shift supervisor rn. Some people have thoughts about suicide while [...] may report side effects to FDA at 4-211-BKL-0311. What other drugs will affect gabapentin? Taking gabapentin with other drugs that make you sleepy can worsen this effect. Ask your doctor before taking a sleeping pill, narcotic medication, muscle relaxer, or medicine for anxiety, depression, or seizures. Other drugs may interact with gabapentin, including prescription and rkru-qsr-vnacpty medicines, vitamins, and herbal products. Tell your [...] to ensure that the information provided by [employer]. ('Regulus Therapeuticstum') is accurate, up-to-date, and complete, but no guarantee is made to that effect. Drug information contained herein may be time sensitive. Hedge Community information has been compiled for use by healthcare practitioners and consumers in the [place] and therefore H[employer] Community does not warrant that uses outside of the [place] are appropriate, unless specifically indicated otherwise. H[employer] Community's drug information does not endorse drugs, diagnose patients or recommend therapy. awe.sms drug information is an informational resource designed [...] effective or appropriate for any given patient. H[employer] does not assume any responsibility for any aspect of healthcare administered with the aid of information H[employer] Community provides. The information contained herein is not intended to cover all possible uses, directions, precautions, warnings, drug interactions, allergic reactions, or adverse effects. If you have questions about the drugs you are taking, check with your doctor, nurse or pharmacist. Copyright 5515-0673 [employer]. Version: 14.01. Revision Date: 02/08/2017. oxycodone (ox [...] The extended-release form of oxycodone is for ibsvuu-upz-ilgvz treatment of pain and should not be [...] against the law. Stop taking all other bbjtvq-owg-uxtvs narcotic pain medicines when you start taking [...] may report side effects to FDA at 6-784-HLF-6349. What other drugs will affect oxycodone? You [...] may affect oxycodone. This includes prescription and iafb-hye-ldhikar medicines, vitamins, and herbal products. Not all [...] to ensure that the information provided by [employer]. ('Multum') is accurate, up-to-date, and complete, but no guarantee is made to that effect. Drug information contained herein may be time sensitive. H[employer] Community information has been compiled for use by healthcare practitioners and consumers in the [place] and therefore H[employer] Community does not warrant that uses outside of the [place] are appropriate, unless specifically indicated otherwise. H[employer] Community's drug information does not endorse drugs, diagnose patients or recommend therapy. awe.sms drug information is an informational resource designed [...] effective or appropriate for any given patient. [employer] does not assume any responsibility for any aspect of healthcare administered with the aid of information [facility] provides. The information contained herein is not intended to cover all possible uses, directions, precautions, warnings, drug interactions, allergic reactions, or adverse effects. If you have questions about the drugs you are taking, check with your doctor, nurse or pharmacist. Copyright 1701-4954 [employer]. Version: 13.02. Revision Date: 03/29/2018. tramadol (TRAM [...] extended-release form of this medicine is for vxkjwd-sqf-qchwz treatment of pain. This form of tramadol [...] against the law. Stop taking all other xdornp-ype-qgzlf narcotic pain medications when you start taking [...] may report side effects to FDA at 1-923-GOE-3519. What other drugs will affect tramadol? You [...] may affect tramadol. This includes prescription and rfrd-vsy-fxtpxkw medicines, vitamins, and herbal products. Not all [...] to ensure that the information provided by [employer]. ('Multum') is accurate, up-to-date, and complete, but no guarantee is made to that effect. Drug information contained herein may be time sensitive. Regulus Therapeuticstum information has been compiled for use by healthcare practitioners and consumers in the [place] and therefore Navendisum does not warrant that uses outside of the [place] are appropriate, unless specifically indicated otherwise. Hedge Community's drug information does not endorse drugs, diagnose patients or recommend therapy. [facility] drug information is an informational resource designed [...] or appropriate for any given patient. [facility] does not assume any responsibility for any aspect of healthcare administered with the aid of information [facility] provides. The information contained herein is not intended to cover all possible uses, directions, precautions, warnings, drug interactions, allergic reactions, or adverse effects. If you have questions about the drugs you are taking, check with your doctor, nurse or pharmacist. Copyright 5504-[address] [facility]. Version: 18.02. Revision Date: 03/29/2018. CIGARETTE SMOKING: The facts are clear, cigarette smoking will shorten your life. Smoking can cause many illnesses along the way. As a healthcare provider, we recommend that you stop smoking. Assistance with quitting is available by contacting 9-855-SEDN-NOW. This is a free resource providing counseling, [...] Be sure to sign up for the [employer]. Like a Man. patient portal, which gives you 22/11 access to your medical information ??? including these discharge instructions ??? using your computer, smartphone, or tablet. Just go to [email or web address] to get started. Questions? Call . [facility] would like to thank you for allowing us to assist you with your healthcare needs. MACI Benjamin RITA MOR, (or accounts receivable representative) have received the above patient education materials/instructions and have verbalized understanding: Patient Signature _ Date/Time Patient Plate Glass Polisher Signature (if needed) Date/Time Clinician/Hospital Plate Glass Polisher Signature (if needed) Date/Time documented in this encounter Plan of Treatment Not on file documented as of this encounter Visit Diagnoses Not on filedocumented in this encounter
--- OUTSIDE RECORDS SUMMARY | 2025-04-23 10:20 | XMS_ITS | Encounter Summary ---
Author Organization [employer] ([place], [place], [place], [place], [place]) Address [address] [place] [address] Care Team Providers Care Caul Fat Puller Name Role Phone Unavailable Primary Care Provider Unavailabl e Encounter Details Date Type Department Care Team (Late st Contact Info) Description 07/13/[address] [facility] Radiology 1 [place] [address] Provider, Layla Acosta MD Social [...] On: 07/13/2018 12:49 EDT by Nany Walker Surgical Training Specialist Lead Discharge Summary Discharge Summary Provider Notified : Nursing, Referring provider Reason for Discharge : Discharged from hospital, All goals met Discharged to, Therapy : Home, with home health Nany Walker Surgical Training Specialist Lead - 07/13/2018 12:49 EDT Discharge Summary [...] DIANNA WELSH, PT - 07/13/2018 16:09 EDT Inside Sales Consultant Goals Other PT LTG Grid Goal #1 [...]
--- OUTSIDE RECORDS SUMMARY | 2025-04-23 10:20 | XMS_ITS | Encounter Summary ---
Author Organization [employer] ([place], [place], [place], [place], [place]) Address [address] [place] [address] Care Team Providers Care Swim Instructor Name Role Phone Unavailable Primary Care Provider Unavailabl e Encounter Details Date Type Department Care Team (Late st Contact Info) Description 07/12/[address] [facility] Radiology 1 [place] [address] ProviderLayla MD Social History Tobacco [...] Conversion Note - [facility] Karla Rojo MD - 07/12/2018 10:39 [...]
--- OUTSIDE RECORDS SUMMARY | 2025-04-23 10:20 | XMS_ITS | Encounter Summary ---
Author Organization [employer] ([place], [place], [place], [place], [place]) Address [address] [place] [address] Care Team Providers Care Group Counselor Name Role Phone Unavailable Primary Care Provider Unavailabl e Encounter Details Date Type Department Care Team (Late st Contact Info) Description 07/12/2018 Transcribed Document [facility] Radiology 1 [place] [address] Provider, Layla Acosta MD Social [...] RENAL CONSULT NOTE WITH [facility] CONSULTING PHYSICIAN: Carroll Martin M.D. REASON FOR CONSULTATION: Elevated creatinine. CHIEF COMPLAINT: Knee replacement. HISTORY OF PRESENT ILLNESS: Patient is a 72-year-old white female with history of CKD in the past, follows with tobacco curer in [place]. Per patient reports, her baseline creatinine around [...] Follows with Nephrology in [place], may be [facility] tobacco curer. 3. Hypertension. Blood pressure was low yesterday, hold angiotensin converting enzyme inhibitor and monitor. 4. Hyperkalemia. Low-potassium diet. Kayexalate p.r.n., . 5. Status post right total knee arthroplasty. 6. Patient is high risk and complex patient. Gen Lam M.D. Dict: 07/12/2018 15:51:02 Trans: 07/13/2018 00:22:40 Processed: 07/13/2018 11:15:54 [place] CC1: Gen Lam M.D. Electronically signed by Jorge Luis, [facility] Conversion Party Chief Cerner at 09/22/2022 11:00 AM CDT documented in this encounter Plan of Treatment Not on file documented as of this encounter Visit Diagnoses Not on filedocumented in this encounter
--- OUTSIDE RECORDS SUMMARY | 2025-04-23 10:20 | XMS_ITS | Encounter Summary ---
Author Organization [employer] ([place], [place], [place], [place], [place]) Address [address] [place] [address] Care Team Providers Care Chain Dyer Name Role Phone Unavailable Primary Care Provider Unavailabl e Encounter Details Date Type Department Care Team (Late st Contact Info) Description 07/13/2018 Transcribed Document [facility] Radiology 1 [place] [address] Provider, Layla Acosta MD Social [...] Conversion Note - [facility] Karla Rojo MD - 07/13/2018 1:00 AM [...]
--- OUTSIDE RECORDS SUMMARY | 2025-04-23 10:20 | XMS_ITS | Encounter Summary ---
Author Organization [employer] ([place], [place], [place], [place], [place]) Address [address] [place] [address] Care Team Providers Care Bandoleer Packer Name Role Phone Unavailable Primary Care Provider Unavailabl e Encounter Details Date Type Department Care Team (Late st Contact Info) Description 07/12/2018 Transcribed Document [facility] Radiology 1 [place] [address] Provider, [...] NENITA PEREZ PT - 07/12/2018 13:35 EDT Staff Registered Nurse Goals Other PT LTG Grid Goal #1 [...]
--- OUTSIDE RECORDS SUMMARY | 2025-04-23 10:20 | XMS_ITS | Encounter Summary ---
Author Organization [employer] ([place], [place], [place], [place], [place]) Address [address] [place] [address] Care Team Providers Care Cardiovascular Surgeon Name Role Phone Unavailable Primary Care Provider Unavailabl e Encounter Details Date Type Department Care Team (Late st Contact Info) Description 07/12/2018 Transcribed Document [facility] Radiology 1 [place] [address] Provider, Layla Acosta MD Social [...] Miscellaneous Notes * Cerner Conversion Note - [facility] Karla Rojo MD - 07/12/2018 7:07 PM EDT [facility] [address] , [place] [address] Patient Copy Patient Information: Name: FLOR LUX Current Date: 07/12/2018 18:07:05 : 1945 Patient Address: [place] [address] Patient Attending Physician: FREDERIC ADAMS MD-ORT Primary Care Provider: RODO SANFORD MD-[facility] Primary Care Provider Discharge Diagnosis: Weight on Admission: 175 lb, 0 oz Comment: Follow-up Instructions: With: Address: When: DEYSI MEJIA [address] [facility] [place] [phone] Business (1) 11:15 AM Comments: Appointment has been made Discharge Instructions: Medical Equipment for Home Use: BLUEGRASS BRACING FOR CPM RENTAL Home Health Services: [facility] [phone] Immunizations Documented During Stay: No Immunizations Found [...] Barley. Bulgur wheat. Millet. Bran muffins. Popcorn. [place] wafer crackers. ?? Vegetables Sweet potatoes. Spinach. Kale. Artichokes. Cabbage. Broccoli. Green peas. Carrots. Squash. ?? Fruits Berries. Pears. Apples. Oranges. Avocados. Prunes and raisins. Dried figs. ?? Meats and Other Protein Sources [place], kidney, hoff, and soy beans. Split peas. [...] alphonso has 11 g of protein. ?? [place] seeds ??? 1 oz has 5.5 g [...] floor. ?? Place frequently used items in fuwb-xm-dypis places ?? Keep electrical cables out of [...] ? Using the bathroom. ? Using household recorder helper gravity prospecting or toxic chemicals. ? Touching or taking [...] are a day sleeper or work a production shift supervisor. Some people have thoughts about [...] may report side effects to FDA at 9-690-OWT-0552. What other drugs will affect gabapentin? Taking gabapentin with other drugs that make you sleepy can worsen this effect. Ask your doctor before taking a sleeping pill, narcotic medication, muscle relaxer, or medicine for anxiety, depression, or seizures. Other drugs may interact with gabapentin, including prescription and qapm-ayq-aiouson medicines, vitamins, and herbal products. Tell your [...] to ensure that the information provided by [employer]. ('International Li[employer] P[employer] Associationum') is accurate, up-to-date, and complete, but no guarantee is made to that effect. Drug information contained herein may be time sensitive. [employer] information has been compiled for use by healthcare practitioners and consumers in the [place] and therefore [employer] does not warrant that uses outside of the [place] are appropriate, unless specifically indicated otherwise. [employer] drug information does not endorse drugs, diagnose patients or recommend therapy. [employer]forms drug information is an informational resource designed [...] effective or appropriate for any given patient. [employer] does not assume any responsibility for any aspect of healthcare administered with the aid of information [employer] provides. The information contained herein is not intended to cover all possible uses, directions, precautions, warnings, drug interactions, allergic reactions, or adverse effects. If you have questions about the drugs you are taking, check with your doctor, nurse or pharmacist. Copyright 3283-6954 [employer]. Version: 14.01. Revision Date: 02/08/2017. oxycodone (ox [...] The extended-release form of oxycodone is for uzytnp-upk-pkumw treatment of pain and should not be [...] against the law. Stop taking all other pmnklu-lrs-utvpr narcotic pain medicines when you start taking [...] may report side effects to FDA at 1-066-HDD-3367. What other drugs will affect oxycodone? You [...] may affect oxycodone. This includes prescription and oxte-bfm-ehkfcpg medicines, vitamins, and herbal products. Not all [...] to ensure that the information provided by [employer]. ('[employer]') is accurate, up-to-date, and complete, but no guarantee is made to that effect. Drug information contained herein may be time sensitive. [employer] information has been compiled for use by healthcare practitioners and consumers in the [place] and therefore [employer] does not warrant that uses outside of the [place] are appropriate, unless specifically indicated otherwise. [employer]'s drug information does not endorse drugs, diagnose patients or recommend therapy. [employer]forms drug information is an informational resource designed [...] effective or appropriate for any given patient. [employer] does not assume any responsibility for any aspect of healthcare administered with the aid of information [employer] provides. The information contained herein is not intended to cover all possible uses, directions, precautions, warnings, drug interactions, allergic reactions, or adverse effects. If you have questions about the drugs you are taking, check with your doctor, nurse or pharmacist. Copyright 8696-2114 [employer]. Version: 13.02. Revision Date: 03/29/2018. tramadol (TRAM [...] extended-release form of this medicine is for cegbhb-oco-ujptf treatment of pain. This form of tramadol [...] against the law. Stop taking all other hnswsa-frh-rkbdf narcotic pain medications when you start taking [...] may report side effects to FDA at 7-842-SUC-0072. What other drugs will affect tramadol? You [...] may affect tramadol. This includes prescription and eesk-twy-khsbcaw medicines, vitamins, and herbal products. Not all [...] to ensure that the information provided by [employer]. ('[employer]') is accurate, up-to-date, and complete, but no guarantee is made to that effect. Drug information contained herein may be time sensitive. [employer]it information has been compiled for use by healthcare practitioners and consumers in the [place] and therefore [employer] does not warrant that uses outside of the [place] are appropriate, unless specifically indicated otherwise. [employer]'s drug information does not endorse drugs, diagnose patients or recommend therapy. Peerforms drug information is an informational resource designed [...] effective or appropriate for any given patient. [facility] does not assume any responsibility for any aspect of healthcare administered with the aid of information [facility] provides. The information contained herein is not intended to cover all possible uses, directions, precautions, warnings, drug interactions, allergic reactions, or adverse effects. If you have questions about the drugs you are taking, check with your doctor, nurse or pharmacist. Copyright 5547-1149 [facility]. Version: 18.02. Revision Date: 03/29/2018. CIGARETTE SMOKING: The facts are clear, cigarette smoking will shorten your life. Smoking can cause many illnesses along the way. As a healthcare provider, we recommend that you stop smoking. Assistance with quitting is available by contacting 1-260-QUOO-NOW. This is a free resource providing counseling, [...] sure to sign up for the My [employer] patient portal, which gives you 22/11 access to your medical information ??? including these discharge instructions ??? using your computer, smartphone, or tablet. Just go to [employer] to get started. Questions? Call . [facility] would like to thank you for allowing us to assist you with your healthcare needs. I, FLOR LUX, (or specialty sales representative) have received the above patient education materials/instructions and have verbalized understanding: Patient Signature _ Date/Time Patient Family Lawyer Signature (if needed) Date/Time Clinician/Hospital Family Lawyer Signature (if needed) Date/Time Electronically signed by Layla Kang Conversion Patient Financial Representative Cerner at 09/22/2022 11:00 AM CDT documented in this encounter Plan of Treatment Not on file documented as of this encounter Visit Diagnoses Not on filedocumented in this encounter
--- OUTSIDE RECORDS SUMMARY | 2025-04-23 10:20 | XMS_ITS | Encounter Summary ---
Author Organization [email or web address] ([place], [place], [place], [place], [place]) Address [address] [place] [address] Care Team Providers Care Java Programmer Analyst Name Role Phone Unavailable Primary Care Provider Unavailabl e Encounter Details Date Type Department Care Team (Late st Contact Info) Description 07/13/2018 Transcribed Document [facility] Radiology 1 [place] [address] Provider, Layla Acosta MD Social [...]
--- OUTSIDE RECORDS SUMMARY | 2025-04-23 10:20 | XMS_ITS | Encounter Summary ---
Author Organization [employer] ([place], [place], [place], [place], [place]) Address [address] [place] [address] Care Team Providers Care Truck Supervisor Name Role Phone Unavailable Primary Care Provider Unavailabl e Encounter Details Date Type Department Care Team (Late st Contact Info) Description 07/12/2018 Transcribed Document [facility] Radiology 1 [place] [address] Provider, Layla Acosta MD Social [...] [facility] Karla Rojo MD - 07/12/2018 4:16 PM EDT [facility] [address] , [place] [address] Patient Copy Patient Information: Name: FLOR LUX Current Date: 07/12/2018 15:16:51 : 1945 Patient Address: [place] [address] Patient Attending Physician: FREDERIC ADAMS MD-ORT Primary Care Provider: RODO SANFORD MD-[facility] Primary Care Provider Discharge Diagnosis: Weight on Admission: 175 lb, 0 oz Comment: Follow-up Instructions: With: Address: When: DEYSI MEJIA [address] [facility], [address] [place] [phone] Business (1) 11:15 AM Comments: Appointment has [...] Barley. Bulgur wheat. Millet. Bran muffins. Popcorn. [place] wafer crackers. ?? Vegetables Sweet potatoes. Spinach. Kale. Artichokes. Cabbage. Broccoli. Green peas. Carrots. Squash. ?? Fruits Berries. Pears. Apples. Oranges. Avocados. Prunes and raisins. Dried figs. ?? Meats and Other Protein Sources [place], kidney, hoff, and soy beans. Split peas. [...] alphonso has 11 g of protein. ?? [place] seeds ??? 1 oz has 5.5 g [...] floor. ?? Place frequently used items in eywn-sx-gzmmz places ?? Keep electrical cables out of [...] ? Using the bathroom. ? Using household envelope patternmaker or toxic chemicals. ? Touching or taking [...] are a day sleeper or work a mini shifter. Some people have thoughts about suicide while [...] may report side effects to FDA at 1-561-QUG-5931. What other drugs will affect gabapentin? Taking gabapentin with other drugs that make you sleepy can worsen this effect. Ask your doctor before taking a sleeping pill, narcotic medication, muscle relaxer, or medicine for anxiety, depression, or seizures. Other drugs may interact with gabapentin, including prescription and saer-mgj-hjccqra medicines, vitamins, and herbal products. Tell your [...] to ensure that the information provided by [employer]. ('[employer]') is accurate, up-to-date, and complete, but no guarantee is made to that effect. Drug information contained herein may be time sensitive. [employer] information has been compiled for use by healthcare practitioners and consumers in the [place] and therefore [employer] does not warrant that uses outside of the [place] are appropriate, unless specifically indicated otherwise. [employer] drug information does not endorse drugs, diagnose patients or recommend therapy. [employer] drug information is an informational resource designed [...] effective or appropriate for any given patient. [employer] does not assume any responsibility for any aspect of healthcare administered with the aid of information [employer] provides. The information contained herein is not intended to cover all possible uses, directions, precautions, warnings, drug interactions, allergic reactions, or adverse effects. If you have questions about the drugs you are taking, check with your doctor, nurse or pharmacist. Copyright 7259-9955 [employer]. Version: 14.. Revision Date: 02/08/2017. oxycodone (ox [...] The extended-release form of oxycodone is for mtxvyt-pcg-ndtmg treatment of pain and should not be [...] against the law. Stop taking all other kfweqx-trm-pyhrn narcotic pain medicines when you start taking [...] may report side effects to FDA at 3-395-HLA-1675. What other drugs will affect oxycodone? You [...] may affect oxycodone. This includes prescription and lugo-pgk-lsbkltt medicines, vitamins, and herbal products. Not all [...] to ensure that the information provided by [employer]. ('[employer]') is accurate, up-to-date, and complete, but no guarantee is made to that effect. Drug information contained herein may be time sensitive. [employer] information has been compiled for use by healthcare practitioners and consumers in the [place] and therefore [employer] does not warrant that uses outside of the [place] are appropriate, unless specifically indicated otherwise. [employer] drug information does not endorse drugs, diagnose patients or recommend therapy. [employer] drug information is an informational resource designed [...] effective or appropriate for any given patient. [employer] does not assume any responsibility for any aspect of healthcare administered with the aid of information [employer] provides. The information contained herein is not intended to cover all possible uses, directions, precautions, warnings, drug interactions, allergic reactions, or adverse effects. If you have questions about the drugs you are taking, check with your doctor, nurse or pharmacist. Copyright 7846-4289 [employer]. Version: 13.02. Revision Date: 03/29/2018. tramadol (TRAM [...] extended-release form of this medicine is for ufhijb-pkx-sejgs treatment of pain. This form of tramadol [...] against the law. Stop taking all other vfpirw-hkb-odlmt narcotic pain medications when you start taking [...] may report side effects to FDA at 8-441-LDJ-9184. What other drugs will affect tramadol? You [...] may affect tramadol. This includes prescription and wghk-rdl-bjtqyyi medicines, vitamins, and herbal products. Not all [...] to ensure that the information provided by [employer]. ('[employer]') is accurate, up-to-date, and complete, but no guarantee is made to that effect. Drug information contained herein may be time sensitive. [employer] information has been compiled for use by healthcare practitioners and consumers in the [place] and therefore [employer] does not warrant that uses outside of the [place] are appropriate, unless specifically indicated otherwise. [employer]'s drug information does not endorse drugs, diagnose patients or recommend therapy. [employer] drug information is an informational resource designed [...] or appropriate for any given patient. [facility] does not assume any responsibility for any aspect of healthcare administered with the aid of information [facility] provides. The information contained herein is not intended to cover all possible uses, directions, precautions, warnings, drug interactions, allergic reactions, or adverse effects. If you have questions about the drugs you are taking, check with your doctor, nurse or pharmacist. Copyright 1277-7089 [facility]. Version: 18.02. Revision Date: 03/29/2018. CIGARETTE SMOKING: The facts are clear, cigarette smoking will shorten your life. Smoking can cause many illnesses along the way. As a healthcare provider, we recommend that you stop smoking. Assistance with quitting is available by contacting 7-113-LTEW-NOW. This is a free resource providing counseling, [...] sure to sign up for the My [employer] patient portal, which gives you 22/11 access to your medical information ??? including these discharge instructions ??? using your computer, smartphone, or tablet. Just go to [employer] to get started. Questions? Call . [facility] would like to thank you for allowing us to assist you with your healthcare needs. MACI Benjamin RITA MOR, (or consumer sales representative) have received the above patient education materials/instructions and have verbalized understanding: Patient Signature _ Date/Time Patient Manager Project Signature (if needed) Date/Time Clinician/Hospital Manager Project Signature (if needed) Date/Time documented in this encounter Plan of Treatment Not on file documented as of this encounter Visit Diagnoses Not on filedocumented in this encounter
--- OUTSIDE RECORDS SUMMARY | 2025-04-23 10:20 | XMS_ITS | Clinical Summary ---
Author Organization [facility] Address [address] [place] [address] Care Team Providers Care Pearl Hand Name Role Phone Haroldo Key MD Primary [...] (12/17/2022): Added automatically from request for surgery [id number] Carotid stenosis, asymptomatic, right 12/17/2022 Overview (12/17/2022): Added automatically from request for surgery [id number] Hyperkalemia 02/05/2017 Type 2 diabetes mellitus wit h complication, without long-term current use of insulin 02/04/2017 Essential hypertension 02/04/2017 Tobacco abuse 02/04/2017 Left-sided carotid artery disease 01/11/2017 Overview (01/11/2017): Added automatically from request for surgery [id number] Peripheral vascular disease 01/02/2017 Resolved Problems Problem [...] VACCINE 11/30/2024 Medical Devices Implanted Type Area Car Pincher Device Identifier Shelf Expiration Date Model / Serial / Lot Intraoccular Lenses Implant Right Hip Orif Hardware Implant [facility] [place] 1x6cm - [id number] Implanted:Qty: 1 on 02/04/2017 by Maicol Burger MD at [facility] Implant Left: Carotid SYN[employer]IS [id number] / / [id number] Procedures Procedure Name Priority Date/Time Associated Diagnosis Comments HEMOGLOBIN A1C Routine 02/03/2017 1:39 PM EDT Stenosis of left carotid artery from Last 3 Months or Most Recently Relevant to Health Maintenance Results * (ABNORMAL) Hemoglobin A1c (02/03/2017 1:39 PM EDT) Hemoglobin A1C 6.60(H) 4.80 - 5.60 % 02/03/2017 2:28 PM EDT [facility] Blood Venipuncture / Unknown 02/03/2017 1:39 PM EDT 02/03/2017 1:51 PM EDT Narrative [facility] - 02/03/2017 2:28 PM EDT The [place] [employer] recommends maintenance of Hemoglobin A1C at 7.0% or lower. Goals for Hemoglobin A1C reduction may need to be modified if hypoglycemia is a problem. us Haroldo AGUILAR LAB BLOOD ORDERABLES Final R esult [facility]
[id number] [place] [id number], from Last 3 Months or Most Recently Relevant to Health Maintenance Insurance MEDICARE A & B [facility] Advance Directives Documents on File Type Date Recorded Patient Tire Service Technician Expl anation LIVING WILL - SCAN 10/20/2021 5:59 AM FRANCHESCA NG WILL DIRECTIVE 02/04/17 LIVING WILL - SCAN 10/19/2021 8:51 AM FRANCHESCA NG WILL DIRECTIVE 02/04/2017 * Full Code (Latest Code Status on File) Date Activated Date Inactivated Comments 02/04/2017 9:45 AM 02/05/2017 7:28 PM Care Teams Pearl Hand Relationship Specialty Start Date End Date Haroldo Key MD PCP - General Family Medicine 11/11/16
--- OUTSIDE RECORDS SUMMARY | 2025-04-23 10:20 | XMS_ITS | Encounter Summary ---
Author Organization [employer] ([place], [place], [place], [place], [place]) Address [address] [place] [address] Care Team Providers Care Horseback Excavator Name Role Phone Unavailable Primary Care Provider Unavailabl e Encounter Details Date Type Department Care Team (Late st Contact Info) Description 07/12/2018 Transcribed Document [facility] Radiology [address] [place] [address] Provider, Layla Acosta MD Social [...]
--- OUTSIDE RECORDS SUMMARY | 2025-04-23 10:20 | XMS_ITS ---
Laboratory report Created on: April 02, 2025 JOAN LUX : 1945 Sex: Female Author Organization Unknown PROBLEMS Problems List Code Description RESULTS Laboratory Orders Date Order Code Test 2024-08-01 [id number] LEVETIRACETAM (K EPPRA), S Laboratory Results Date LOINC Test Value Unit Reference Range Interpre tation 2024-08-01 [id number] LEVETIRACETAM, S 30.1 UG/ML 10.0-40.0
--- OUTSIDE RECORDS SUMMARY | 2025-04-23 10:20 | XMS_ITS | Encounter Summary ---
Author Organization [employer] ([place], [place], [place], [place], [place]) Address [address] [place] [address] Care Team Providers Care Senior Oracle Soa Developer Name Role Phone Unavailable Primary Care Provider Unavailabl e Encounter Details Date Type Department Care Team (Late st Contact Info) Description 07/12/2018 Transcribed Document [facility] Radiology [address] [place] [address] Provider, Layla Acosta MD Social [...] TIA (transient ischemic attack) / SNOMED CT 941587576 / Confirmed HTN (hypertension) / SNOMED CT 6203879743 / Confirmed Hyperlipidemia / SNOMED CT 87461923 / Confirmed Fibromyalgia / SNOMED CT 102865409 / Confirmed Circulation problem / SNOMED CT 3240636748 / Confirmed Diabetes / SNOMED CT 947931677 / Confirmed Depression / SNOMED CT 68868360 / Confirmed CAD (coronary artery disease) / SNOMED CT 72120742 / Confirmed At risk for sleep apnea / IMO 98100546 / Confirmed Arthritis / SNOMED CT 4635429 / Confirmed Anxiety / SNOMED CT 38936234 / Confirmed, Active Problems (11) Anxiety Arthritis [...]
--- OUTSIDE RECORDS SUMMARY | 2025-04-23 10:20 | XMS_ITS | Encounter Summary ---
Author Organization [employer] ([place], [place], [place], [place], [place]) Address [address] [place] [address] Care Team Providers Care Roaster Helper Name Role Phone Unavailable Primary Care Provider Unavailabl e Encounter Details Date Type Department Care Team (Late st Contact Info) Description 07/12/2018 Transcribed Document [facility] Radiology [address] [place] [address] Provider, Layla Acosta MD Social [...]
--- OUTSIDE RECORDS SUMMARY | 2025-04-23 10:20 | XMS_ITS | Encounter Summary ---
Author Organization [employer] ([place], [place], [place], [place], [place]) Address [address] [place] [address] Care Team Providers Care Cement Mixer Driver Name Role Phone Unavailable Primary Care Provider Unavailabl e Encounter Details Date Type Department Care Team (Late st Contact Info) Description 07/11/2018 Transcribed Document [facility] Radiology [address] [place] [address] Provider, Layla Acosta MD Social [...] Miscellaneous Notes * Cerner Conversion Note - [facility] Karla Rojo MD - 07/11/2018 3:47 PM EDT [facility] OR IntraOp Summary Primary Physician: FREDERIC ADAMS MD-ORT Finalized Date/Time: 07/11/18 16:06:00 Pt. Name: FLOR LUX JORDEN Royal/Sex: 1945 Female Med Rec #: [id number] Physician: FREDERIC ADAMS MD-ORT Financial #: [id number] Pt. Type: O Room/Bed: [facility]/ Admit/Disch: 07/11/18 04:54:00 - [place] [facility] [place] Attendance Entry 1 Entry 2 Entry 3 Case Attendee FREDERIC ADAMS NAPIER, CYNTHIA A, CRNA Bland, Jordyn A, RN MD-ORT Role Performed Surgeon/Proceduralist, MEDICAL SOCIAL CONSULTANT/Nurse Garden Tractor Mechanic Title Department Manager, First First Time In 07/11/18 14:44:00 07/11/18 [...] Attendee RUBEN NUNEZ Letitia, ST Combs, Leslie, Mysql Database Developer Role Performed Scrub, First Scrub, Second Assistive [...] ATTENDEE ONUR REYES MD Role Performed Physician nurse assistant Vendor Anesthesiologist Time In 07/11/18 14:55:00 [...] 11 Case Attendee Soni Jose, BREEZY ZHENG, MEDICAL SOCIAL CONSULTANT Role Performed Title Department Manager, First MEDICAL SOCIAL CONSULTANT/Nurse Garden Tractor Mechanic Time In 07/11/18 15:10:00 07/11/18 15:39:00 Time Out 07/11/18 15:36:00 07/11/18 16:01:00 Procedure Knee Total Joint Knee Total Joint Replacement Replacement Other Attendee Superficial Wound Closed By: Last Modified By: Za Fonseca RN Bland, Jordyn A, RN 07/11/18 16:05:53 07/11/18 16:05:53 [facility] IntraOp Case Attendance Audit 07/11/18 16:05:53 Operating Room Coordinator: MICHAEL Modifier: MICHAEL 1 <+> Time Out [...] Procedure Knee Total Joint Replacement 07/11/18 15:54:27 Operating Room Coordinator: MICHAEL Modifier: MICHAEL 9 <+> Time Out 9 <*> Procedure Knee Total Joint Replacement <+> 11 Case Attendee <+> 11 Role Performed <+> 11 Time In <+> 11 Procedure 07/11/18 15:36:52 Operating Room Coordinator: MICHAEL Modifier: MICHAEL 10 <+> Time Out 10 <*> Procedure Knee Total Joint Replacement 07/11/18 15:18:09 Operating Room Coordinator: MICHAEL Modifier: MICHAEL <+> 10 Case Attendee <+> 10 Role Performed <+> 10 Time In <+> 10 Procedure 07/11/18 15:02:08 Operating Room Coordinator: MICHAEL Modifier: JORDYNBLAND 1 <*> Time In 07/11/18 14:15:00 1 <*> Procedure Knee Total Joint Replacement 07/11/18 15:01:47 Operating Room Coordinator: MICHAEL Modifier: MICHAEL <+> 9 Case Attendee <+> 9 Role Performed <+> 9 Time In <+> 9 Procedure 07/11/18 14:57:15 Operating Room Coordinator: MICHAEL Modifier: MICHAEL 1 <*> Procedure Knee [...] [facility] IntraOp Case Times Audit 07/11/18 16:05:47 Operating Room Coordinator: MICHAEL Modifier: MICHAEL <+> 1 Out Room Time <+> 1 Stop Time 07/11/18 15:58:06 Operating Room Coordinator: MICHAEL Modifier: MICHAEL 1 <*> Stop Time 07/11/18 15:59:00 07/11/18 15:57:03 Operating Room Coordinator: MICHAEL Modifier: HAFSAAND <+> 1 Stop Time 07/11/18 14:47:11 Operating Room Coordinator: MICHAEL Modifier: MICHAEL <+> 1 Start Time [...] [facility] IntraOp Counts Verification Audit 07/11/18 15:36:24 Operating Room Coordinator: MICHAEL Modifier: MICHAEL <+> 2 Procedure <+> [...] Cristy Bee ST (Scrub) Count Performed By Za Fonseca RN (RN) Last Modified By: Za Fonseca RN 07/11/18 15:54:33 [facility] IntraOp Counts Final Audit 07/11/18 15:54:33 Operating Room Coordinator: MICHAEL Modifier: MICHAEL 1 <*> Procedure Knee [...] RN 07/11/18 14:39:49 [facility] IntraOp General Case Corporate Training Manager 1 Case Information [place] [facility] [place] Level 1 Room Verified Yes Wound [...] BRG VANGRD TY TIB I-BEAM FIX Identification -[id number] BIOMET [id number] Description Implant Quantity 2 1 1 Implant Site RIGHT KNEE RIGHT KNEE RIGHT KNEE Implant Identification Model Number Implant Identification Serial Number Implant [id number] Identification Lot Number Implant Dj Surg:Encore Biomet Biomet Identification Med:Edmund Plaster Block Layer Name: Implant 600-15-000 [id number] Identification Catalog Number Implant Size Implant Has an Yes Yes Yes Expiration Date Implant Expiration 09/15/19 05/16/23 03/06/28 Date Wasted Radioactive Material Time Implanted Tissue Implant Continue for Tissue Implant Documentation Tissue Identification Number Graft Prep Per Plaster Block Layer Instructions: Tissue Preparation Method: Reconstitution Solution: Reconstitution Solution Lot Number Reconstitution Solution Expiration Date: Thawing Solution Thawing Solution Lot Number Thawing Solution Expiration Date Preparation Materials, Other Preparation Materials, Other Lot Number Preparation Materials, Other Expiration Date Tissue Prepared/Processed By Plaster Block Layer Paperwork Completed Implant Type Comment Last Modified By: Za Fonseca RN Bland, Jordyn A, RN Bland, Jordyn A, RN 07/11/18 15:32:02 07/11/18 15:32:02 07/11/18 15:32:02 Entry 4 Entry 5 Type Implant (Synthetic) Implant (Synthetic) Implant Log Implant Type Hardware Hardware Tissue Implant Type Implant COMP FEM CR INTLOK VGRD PATELLA THIN Identification 62.5 [id number] Description Implant Quantity 1 1 Implant Site RIGHT KNEE RIGHT KNEE Implant Identification Model Number Implant Identification Serial Number Implant [id number] Identification Lot Number Implant Biomet Biomet Identification Plaster Block Layer Name: Implant [id number] Identification Catalog Number Implant Size Implant Has an Yes Yes Expiration Date Implant Expiration 05/18/28 05/09/23 Date Wasted Radioactive Material Time Implanted Tissue Implant Continue for Tissue Implant Documentation Tissue Identification Number Graft Prep Per Plaster Block Layer Instructions: Tissue Preparation Method: Reconstitution Solution: Reconstitution Solution Lot Number Reconstitution Solution Expiration Date: Thawing Solution Thawing Solution Lot Number Thawing Solution Expiration Date Preparation Materials, Other Preparation Materials, Other Lot Number Preparation Materials, Other Expiration Date Tissue Prepared/Processed By Plaster Block Layer Paperwork Completed Implant Type Comment Last Modified By: Za Fonseca RN Bland, Jordyn A, RN 07/11/18 15:32:02 07/11/18 15:32:02 [facility] IntraOp Implant Log Audit 07/11/18 15:32:02 Operating Room Coordinator: MICHAEL Modifier: MICHAEL 1 <*> Implant Identification Description CEMENT BONE COBALT HV [id number] 1 <*> Implant Identification Lot Number [id number] 1 <*> Implant Identification Plaster Block Layer Dj Surg:Encore Med:Blodgett Name: 1 <*> Implant Expiration Date 09/15/19 1 <*> Implant Site RIGHT KNEE 1 <*> Implant Quantity 2 1 <*> Implant Identification Catalog 600-15-000 Number 1 <*> Implant Type Bone Cement 1 <*> Implant Has an Expiration Date Yes 1 <*> Type Implant (Synthetic) 2 <*> Implant Identification Description COMP TIB BRG VANGRD [id number] 2 <*> Implant Identification Plaster Block Layer Biomet Name: 2 <*> Implant Expiration Date 05/16/23 2 <*> Implant Site RIGHT KNEE 2 <*> Implant Quantity 1 2 <*> Implant Identification Catalog [id number] Number 2 <*> Implant Type Hardware 2 <*> Implant Has an Expiration Date Yes 2 <*> Type Implant (Synthetic) 3 <*> Implant Identification Description TY TIB I-BEAM FIX BIOMET [id number] 3 <*> Implant Identification Plaster Block Layer Biomet Name: 3 <*> Implant Expiration Date 03/06/28 3 <*> Implant Site RIGHT KNEE 3 <*> Implant Quantity 1 3 <*> Implant Identification Catalog 609263 Number 3 <*> Implant Type Hardware 3 <*> Implant Has an Expiration Date Yes 3 <*> Type Implant (Synthetic) 4 <+> Implant Identification Description 4 <+> Implant Identification Plaster Block Layer Name: 4 <+> Implant Expiration Date 4 <*> Implant Site RIGHT KNEE 4 <*> Implant Quantity 1 4 <+> Implant Identification Catalog Number 4 <*> Implant Type Hardware 4 <*> Implant Has an Expiration Date Yes 4 <*> Type Implant (Synthetic) 5 <*> Implant Identification Description COMP FEM CR INTLOK RD 62.5 [id number] 5 <+> Implant Identification Lot Number 5 <*> Implant Identification Plaster Block Layer Biomet Name: 5 <*> Implant Expiration Date 05/18/28 5 <*> Implant Site RIGHT KNEE 5 <*> Implant Quantity 1 5 <*> Implant Identification Catalog 856592 Number 5 <*> Implant Type Hardware 5 <*> Implant Has an Expiration Date Yes 5 <*> Type Implant (Synthetic) 6 <-> Implant Identification Description PATELLA THIN [id number] 6 <-> Implant Identification Lot Number [id number] 6 <-> Implant Identification Plaster Block Layer Biomet Name: 6 <-> Implant Expiration Date 05/09/23 6 <-> Implant Site RIGHT KNEE 6 <-> Implant Quantity 1 6 <-> Implant Identification Catalog 306028 Number 6 <-> Implant Type Hardware 6 <-> Implant Has an Expiration Date Yes 6 <-> Type Implant (Synthetic) 07/11/18 15:30:47 Operating Room Coordinator: MICHAEL Modifier: JORDYNWEST <+> 2 Implant Identification Description <+> 2 Implant Identification Plaster Block Layer Name: 07/11/18 15:29:37 Operating Room Coordinator: MICHAEL Modifier: MICHAEL <+> 3 Implant Identification Description <+> 3 Implant Identification Plaster Block Layer Name: <+> 3 Implant Expiration Date <+> 3 Implant Identification Catalog Number 6 <*> Implant Identification Description PATELLA THIN [id number] 6 <+> Implant Site 07/11/18 15:22:42 Operating Room Coordinator: MICHAEL Modifier: MICHAEL <+> 5 Implant Identification Description <+> 5 Implant Identification Plaster Block Layer Name: <+> 5 Implant Expiration Date <+> 5 Implant Identification Catalog Number 07/11/18 15:20:08 Operating Room Coordinator: MICHAEL Modifier: MICHAEL <+> 6 Implant Identification Description <+> 6 Implant Identification Lot Number <+> 6 Implant Identification Plaster Block Layer Name: <+> 6 Implant Expiration Date <+> 6 Implant Quantity <+> 6 Implant Identification Catalog Number <+> 6 Implant Type <+> 6 Implant Has an Expiration Date <+> 6 Type 07/11/18 15:16:19 Operating Room Coordinator: MICHAEL Modifier: MICHAEL <+> 1 Implant Identification Description <+> 1 Implant Identification Lot Number <+> 1 Implant Identification Plaster Block Layer Name: <+> 1 Implant Expiration Date <+> [...] - vancomycin 1Gm vial - 1000MG/10 ML [id number] Combo Med List Time Administered Route of TOPICALW/ 25ML NACL IRRIGANT TOPICAL Administration Dose Dose 1000 1 Unit of Measure mg gram Volume 10 ML BOTTLE Administered By FREDERIC ADASM CHRISTENSEN, ANGIE DE LA GARZA CHRISTIAN, MD-ORT [...] Positioned By STEWART SAWYER CRNA, Lucretia Calvert, Mysql Database Developer, Za Fonseca RN, RUBEN NUNEZ Position Verified [...] Intra Op Sign Out Audit 07/11/18 16:05:52 Operating Room Coordinator: MICHAEL Modifier: MICHAEL <+> 1 RN Sign [...] [facility] IntraOp Surgical Procedures Audit 07/11/18 15:58:11 Operating Room Coordinator: [email or web address] Modifier: JORDYNBLAND 1 <*> Procedure Knee Total Joint Replacement 1 <*> Stop 07/11/18 15:59:00 07/11/18 15:57:05 Operating Room Coordinator: MICHAEL Modifier: [email or web address] <+> 1 Stop SJE [...] Padded Under Cuff Applied By Lucretia Calvert, Mysql Database Developer Removed By RAMOS ALBA, PAC Times Start Time 07/11/18 14:46:00 Stop Time 07/11/18 15:54:00 Last Modified By: Za Fonseca RN 07/11/18 15:54:51 JN IntraOp Tourniquet Audit 07/11/18 15:54:51 Operating Room Coordinator: MICHAEL Modifier: MICHAEL <+> 1 Stop Time Case Comments <None> Finalized By: Za Fonseca, RN Document Signatures Signed By: Za Fonseca RN 07/11/18 16:06 documented in this encounter Plan of Treatment Not on file documented as of this encounter Visit Diagnoses Not on filedocumented in this encounter
--- OUTSIDE RECORDS SUMMARY | 2025-04-23 10:20 | XMS_ITS | Encounter Summary ---
Author Organization [employer] ([place], [place], [place], [place], [place]) Address [address] [place] [address] Care Team Providers Care Bioanalyst Name Role Phone Unavailable Primary Care Provider Unavailabl e Encounter Details Date Type Department Care Team (Late st Contact Info) Description 07/13/2018 Transcribed Document [facility] Radiology [address] [place] [address] ProviderLayla MD Social History Tobacco [...] * Cerner Conversion Note - [facility] Karla Rojo MD - 07/13/2018 6:00 [...]
--- OUTSIDE RECORDS SUMMARY | 2025-04-23 10:20 | XMS_ITS | Encounter Summary ---
Author Organization [employer] ([place], [place], [place], [place], [place]) Address [address] [place] [address] Care Team Providers Care Blow Pit Helper Name Role Phone Unavailable Primary Care Provider Unavailabl e Encounter Details Date Type Department Care Team (Late st Contact Info) Description 07/12/2018 Transcribed Document [facility] Radiology [address] [place] [address] Provider, Layla Acosta MD Social [...] & Health Services Karla Rojo MD - 07/12/2018 12:38 PM [...] right TKA. High risk and complex pt #[id number] documented in this encounter Plan of Treatment Not on file documented as of this encounter Visit Diagnoses Not on filedocumented in this encounter
--- OUTSIDE RECORDS SUMMARY | 2025-04-23 10:20 | XMS_ITS | Encounter Summary ---
Author Organization [employer] ([place], [place], [place], [place], [place]) Address [address] [place] [address] Care Team Providers Care Picking Table Worker Name Role Phone Unavailable Primary Care Provider Unavailabl e Encounter Details Date Type Department Care Team (Late st Contact Info) Description 07/13/[address] [facility] Radiology [address] [place] [address] Provider, [...] Miscellaneous Notes * Cerner Conversion Note - [facility] Karla Rojo MD - 07/13/2018 11:49 AM EDT [facility] [address], [place] [address] Patient Copy Patient Information: Name: FLOR LUX Current Date: 07/13/2018 10:49:37 : 1945 Patient Address: [place] [address] Patient Attending Physician: FREDERIC ADAMS MD-ORT Primary Care Provider: RODO SANFORD MD-[facility] Primary Care Provider Discharge Diagnosis: Weakness Weight on Admission: 175 lb, 0 oz Comment: Follow-up Instructions: With: Address: When: Follow up with specialty services Within 2 to 3 days Comments: Nephrology With: Address: When: Follow up with primary care provider Within 2 to 3 days With: Address: When: DEYSI MEJIA [address] [facility] [place] [address] [employer] (1) 11:15 AM Comments: Appointment has been made Discharge Instructions: Medical Equipment for Home Use: [employer] FOR CPM RENTAL Home Health Services: [facility] [phone] Immunizations Documented During Stay: No Immunizations Found [...] Barley. Bulgur wheat. Millet. Bran muffins. Popcorn. [place] wafer crackers. ?? Vegetables Sweet potatoes. Spinach. Kale. Artichokes. Cabbage. Broccoli. Green peas. Carrots. Squash. ?? Fruits Berries. Pears. Apples. Oranges. Avocados. Prunes and raisins. Dried figs. ?? Meats and Other Protein Sources [place], kidney, hoff, and soy beans. Split peas. [...] alphonso has 11 g of protein. ?? Phoenix seeds ??? 1 oz has 5.5 g [...] floor. ?? Place frequently used items in dnli-xj-qkhje places ?? Keep electrical cables out of [...] ? Using the bathroom. ? Using household on site construction superintendent or toxic chemicals. ? Touching or taking [...] are a day sleeper or work a burglar alarm inspector. Some people have thoughts about suicide while [...] may report side effects to FDA at 6-271-GQU-2734. What other drugs will affect gabapentin? Taking gabapentin with other drugs that make you sleepy can worsen this effect. Ask your doctor before taking a sleeping pill, narcotic medication, muscle relaxer, or medicine for anxiety, depression, or seizures. Other drugs may interact with gabapentin, including prescription and ievs-hjn-kchgmhl medicines, vitamins, and herbal products. Tell your [...] to ensure that the information provided by [employer] ? [employer]. ('UNATION[employer]') is accurate, up-to-date, and complete, but no guarantee is made to that effect. Drug information contained herein may be time sensitive. [employer] information has been compiled for use by healthcare practitioners and consumers in the [place] and therefore [employer] does not warrant that uses outside of the [place] are appropriate, unless specifically indicated otherwise. [employer]'s drug information does not endorse drugs, diagnose patients or recommend therapy. [employer] drug information is an informational resource designed [...] effective or appropriate for any given patient. [employer] does not assume any responsibility for any aspect of healthcare administered with the aid of information [employer] provides. The information contained herein is not intended to cover all possible uses, directions, precautions, warnings, drug interactions, allergic reactions, or adverse effects. If you have questions about the drugs you are taking, check with your doctor, nurse or pharmacist. Copyright 9031-2229 [employer]. Version: 14.01. Revision Date: 02/08/2017. oxycodone (ox [...] The extended-release form of oxycodone is for vschgj-hpq-nndwh treatment of pain and should not be [...] against the law. Stop taking all other kzhmgd-ztu-vxapq narcotic pain medicines when you start taking [...] may report side effects to FDA at 3-330-DFG-0716. What other drugs will affect oxycodone? You [...] may affect oxycodone. This includes prescription and dywz-zdp-qbvsnyq medicines, vitamins, and herbal products. Not all [...] to ensure that the information provided by [employer] ? [employer]. ('Multum') is accurate, up-to-date, and complete, but no guarantee is made to that effect. Drug information contained herein may be time sensitive. [employer] information has been compiled for use by healthcare practitioners and consumers in the [place] and therefore [employer] does not warrant that uses outside of the [place] are appropriate, unless specifically indicated otherwise. [employer]'s drug information does not endorse drugs, diagnose patients or recommend therapy. [employer] drug information is an informational resource designed [...] effective or appropriate for any given patient. [employer] does not assume any responsibility for any aspect of healthcare administered with the aid of information [facility] provides. The information contained herein is not intended to cover all possible uses, directions, precautions, warnings, drug interactions, allergic reactions, or adverse effects. If you have questions about the drugs you are taking, check with your doctor, nurse or pharmacist. Copyright 1933-6632 [employer] ? IO. Version: 13.02. Revision Date: 03/29/2018. tramadol (TRAM [...] extended-release form of this medicine is for yinitj-oxd-grbou treatment of pain. This form of tramadol [...] against the law. Stop taking all other lhtmtb-jie-aegra narcotic pain medications when you start taking [...] may report side effects to FDA at 0-854-RWS-3937. What other drugs will affect tramadol? You [...] may affect tramadol. This includes prescription and szxa-ifl-ciamlzu medicines, vitamins, and herbal products. Not all [...] to ensure that the information provided by [employer] ? IO. ('Multum') is accurate, up-to-date, and complete, but no guarantee is made to that effect. Drug information contained herein may be time sensitive. [employer] information has been compiled for use by healthcare practitioners and consumers in the [place] and therefore [employer] does not warrant that uses outside of the [place] are appropriate, unless specifically indicated otherwise. [employer]'s drug information does not endorse drugs, diagnose patients or recommend therapy. [facility] drug information is an informational resource designed [...] effective or appropriate for any given patient. [facility] does not assume any responsibility for any aspect of healthcare administered with the aid of information [facility] provides. The information contained herein is not intended to cover all possible uses, directions, precautions, warnings, drug interactions, allergic reactions, or adverse effects. If you have questions about the drugs you are taking, check with your doctor, nurse or pharmacist. Copyright 5233-9915 [facility]. Version: 18.02. Revision Date: 03/29/2018. CIGARETTE SMOKING: The facts are clear, cigarette smoking will shorten your life. Smoking can cause many illnesses along the way. As a healthcare provider, we recommend that you stop smoking. Assistance with quitting is available by contacting 3-230-SGLD-NOW. This is a free resource providing counseling, [...] Be sure to sign up for the [employer] patient portal, which gives you 22/11 access to your medical information ??? including these discharge instructions ??? using your computer, smartphone, or tablet. Just go to [employer] to get started. Questions? Call . [facility] would like to thank you for allowing us to assist you with your healthcare needs. MACI Benjamin RITA MOR, (or client relations representative) have received the above patient education materials/instructions and have verbalized understanding: Patient Signature _ Date/Time Patient Carpenter Refrigerator Signature (if needed) Date/Time Clinician/Hospital Carpenter Refrigerator Signature (if needed) Date/Time documented in this encounter Plan of Treatment Not on file documented as of this encounter Visit Diagnoses Not on filedocumented in this encounter
--- OUTSIDE RECORDS SUMMARY | 2025-04-23 10:20 | XMS_ITS | Encounter Summary ---
Author Organization [employer] ([place], [place], [place], [place], [place]) Address [address] [place] [address] Care Team Providers Care Qc Lab Technician Name Role Phone Unavailable Primary Care Provider Unavailabl e Encounter Details Date Type Department Care Team (Late st Contact Info) Description 07/13/2018 Transcribed Document [facility] Radiology [address] [place] [address] ProviderLayla MD Social History Tobacco [...] [facility] Karla Rojo MD - 07/13/2018 4:00 AM [...]
--- OUTSIDE RECORDS SUMMARY | 2025-04-23 10:20 | XMS_ITS | Encounter Summary ---
Author Organization [employer] ([place], [place], [place], [place], [place]) Address [address] [place] [address] Care Team Providers Care Campus Recruiting Intern Name Role Phone Unavailable Primary Care Provider Unavailabl e Encounter Details Date Type Department Care Team (Late st Contact Info) Description 07/13/2018 Transcribed Document [facility] Radiology [address] [place] [address] Provider, Layla Acosta MD Social [...] Note - Julius Karla Rojo MD - 07/13/2018 11:32 AM EDT [...] TIA (transient ischemic attack) / SNOMED CT 232193266 / Confirmed HTN (hypertension) / SNOMED CT 0097398819 / Confirmed Hyperlipidemia / SNOMED CT 28063792 / Confirmed Fibromyalgia / SNOMED CT 369284385 / Confirmed Circulation problem / SNOMED CT 4792152261 / Confirmed Diabetes / SNOMED CT 692006931 / Confirmed Depression / SNOMED CT 65384130 / Confirmed CAD (coronary artery disease) / SNOMED CT 92535205 / Confirmed At risk for sleep apnea / IMO [id number] / Confirmed Arthritis / SNOMED CT 6928482 / Confirmed Anxiety / SNOMED CT 75528348 / Confirmed, Active Problems (11) Anxiety Arthritis [...]
--- NOTE | 2025-04-23 10:43 | HMH.PTEV ---
Physical Therapy Evaluation Rehab PT IP Evaluation Start: 04/23/25 08:57 Freq: ONCE Status: Active Protocol: Document 04/23/25 09:04 LEYDI (Rec: 04/23/25 10:43 LEYDI [id number]) Subjective/History History History Per H&P: Ms. Arroyo is a 79-year-old female with multiple comorbidities who resides at [facility] and rehab. They have been treating her for generalized weakness and pneumonia for the past few days. Weakness has gotten worse and had some increased confusion per prison report. EMS brought her to the ER for further evaluation. On arrival, history obtained more from family than patient. The nursing has been treating her for the past 5 to 7 days with Levaquin. Unfortunately she has been getting worse per their report. She is overall weak with some increased confusion. Currently on 3 L nasal cannula, normally wears 2 L nasal cannula. Has had some decreased p.o. intake. Cough has been productive. Patient is afebrile on arrival. Workup including CTA of the chest obtained. Found to have elevated white count of 14. CTA of the chest showing complete whiteout of left lung field. Large effusion with collapse of left lung and obstruction of left main bronchus. Known history of lung mass for which she did not want to pursue any treatment a year ago. Findings most consistent with obstructive pneumonia. Pulmonology consulted who recommended antibiotics, thoracentesis, admission and evaluation in the morning. Medicine consulted for admission. Subjective Subjective Pt reports she uses a w/c as primary mode of mobility at her prison. Pt reports recently her prison has had to use a lift d/t increased weakness. [facility] How much help from another person do you currently need... Turning from your A lot back to your side while in a flat bed without using bedrails? Moving from lying on A lot back to sitting on the side of a flat bed without using bedrails? Moving to and from a A lot bed to a chair ( including a wheelchair)? Standing up from a A lot chair using your arms? (e.g., wheelchair, bedside chair) Walking in hospital A lot room? Climbing 3-5 steps A lot with a railing? Mobility Score 12 Mobility Level [facility] Mobility 4 Move to chair/commode Mobility Calculator Rehab PT IP Eval Objective Appearance Patient Behavior Appropriate,Cooperative Patient Orientation Person Difficulty following none instructions Speech Pattern Clear Ambulation Patient Able to No Ambulate Balance Ability to Arise Unable Sitting Balance Leans or slides in chair Standing Balance Unsteady Transfers Bed Transfer Ability Maximum x 1 (75% assist) Rehab PT IP prob,goals,plan Problems Date of Evaluation: 04/23/25 PT IP Problems Bed Mobility,Transfers,Gait,Balance,Self care,Safety Rehab Potential Rehab Potential Good Plan PT Intervention Plan Bed Mobility,Transfers,Gait,Balance,Self care,Safety, Therapeutic Exercise Other Intervention 1-2 times Plan PT Plan Frequency Daily Duration LOS Discharge Goals Bed Transfer Ability Moderate x 1 (50% assist) Sit to Stand Chair Moderate x 1 (50% assist) Transfer Ability Discharge Plan PT Discharge Plan Recommend patient to return back to SNF for rehabilitation and nursing skilled services. Patient to continue skilled OT IP services while here at [facility]. Eval Complexity Eval Charge Codes 72626 - Moderate Complexity PHYSICIAN CERTIFICATION: I certify the specified therapy services for Flor Arroyo are required, authorized, and reviewed every 30 days.
[2025-04-23 11:17] LABS: POC Glucose,Bedside 80 gm/dL (70-110)
--- NOTE | 2025-04-23 11:35 | PC.NURSE ---
, Case Manangement, and Primary RN at bedside with patient and patients family for goals of care discussion at this time.
--- NOTE | 2025-04-23 12:30 | EXP.EVENT.NO ---
Advance care planning note: Active diagnosis: Vascular dementia, history of CVA with residual deficits, suspected lung cancer, postobstructive pneumonia, pleural effusion, acute kidney injury, diabetes, seizure disorder The patient's active diagnoses are of sufficient risk that focused discussion on advanced care planning is indicated in order to allow the patient to thoughtfully consider personal goals of care; and, if situations arise that prevent the ability to personally give input, to ensure appropriate representation of their personal desires through documentation or informed surrogate decision makers. Discussion: Persons present and participating in discussion: Son, bfnhflor-go-pol, social work, bedside nurse, myself, patient, patient's daughter via FaceTime Discussion: Extensive discussion about patient's current condition. Showed images obtained on this admission with CT of chest showing obstructive pneumonia comparing to CT from a year ago and progression of disease. Patient currently hemodynamically stable. Discussed goals of care including treatment of current infection versus hospice care. Family would like to focus on keeping patient comfortable and treat her current infection but does not want to pursue any other aggressive treatments or interventions. Historically patient has not wanted to do anything about the lung masses that she has known about for over a year. After much discussion, will consult hospice and likely discharge to hospice care in the next day. Questions answered. Will continue antibiotics for now. Time spent: Total time spent gnsy-sb-wyot in education and discussion directly related to advance care plannin minutes Gen Gomez 04/23/2025 11:30-11:50
[2025-04-23 16:04] LABS: POC Glucose,Bedside 119 gm/dL (70-110)
--- NOTE | 2025-04-23 18:35 | PC.NURSE ---
Verbal orders received from . Indwelling christian catheter removed at this time. Indwelling christian catheter tubing intact. Patient tolerated well. Continuation of care plan.
[2025-04-23 20:11] LABS: POC Glucose,Bedside 95 gm/dL (70-110)
[2025-04-23] MEDS: BUSPIRONE HCL 5 MG TABLET PO (21:20)
[2025-04-24] VITALS: PULSE 80
--- NOTE | 2025-04-24 03:58 | EXP.EVENT.NO ---
Patient with 270cc on bladder scan after voiding. Patient had Gan pulled at shift change. Will straight cath now and perform postvoid bladder residual test in future.
[2025-04-24 04:00] VITALS: BP 130/72; PULSE 79; PULSE 80; RESP 22; TEMP 36.8; O2SAT 93; BMI 20.7
[2025-04-24 06:12] LABS: POC Glucose,Bedside 130 gm/dL (70-110)
[2025-04-24 08:00] VITALS: BP 132/64; PULSE 80; RESP 16; TEMP 36.6; O2SAT 96
[2025-04-24] MEDS: SERTRALINE 100MG TABLET 100 MG PO (09:33)
[2025-04-24] MEDS: BUSPIRONE HCL 5 MG TABLET PO (09:33)
--- NOTE | 2025-04-24 09:52 | HMH.PHAAMS2 ---
- Antimicrobial Stewardship Review culture & sensitivity review Stewardship interventions: culture & sensitivity review, de-escalation/chg therapy Comments: BASED ON C&S CHANGED FROM LEVAQUIN TO ROCEPHIN WHILE INPATIENT
--- NOTE | 2025-04-24 10:12 | EXP.DC.SUM ---
General Admission date:: 04/22/25 Discharge date: 04/24/25 HPI HPI HPI: Ms. Arroyo is a 79-year-old female with multiple comorbidities who resides at [facility] and rehab. They have been treating her for generalized weakness and pneumonia for the past few days. Weakness has gotten worse and had some increased confusion per detention report. EMS brought her to the ER for further evaluation. On arrival, history obtained more from family than patient. The nursing has been treating her for the past 5 to 7 days with Levaquin. Unfortunately she has been getting worse per their report. She is overall weak with some increased confusion. Currently on 3 L nasal cannula, normally wears 2 L nasal cannula. Has had some decreased p.o. intake. Cough has been productive. Patient is afebrile on arrival. Workup including CTA of the chest obtained. Found to have elevated white count of 14. CTA of the chest showing complete whiteout of left lung field. Large effusion with collapse of left lung and obstruction of left main bronchus. Known history of lung mass for which she did not want to pursue any treatment a year ago. Findings most consistent with obstructive pneumonia. Pulmonology consulted who recommended antibiotics, thoracentesis, admission and evaluation in the morning. Medicine consulted for admission. On my evaluation, patient is pleasant. Denies any pain. Is very agreeable. Does not appear in any acute distress. She is quite weak. Denies nausea or vomiting or chest pain. Hospital Course Hospital Course Hospital Course: Flor Arroyo is a 79-year-old female with a medical history significant for chronic tobacco smoker, type 2 diabetes, CVA with right sided residual deficits, seizure disorder, hypertension, CAD, carotid artery disease, and known lung mass. Presents to the ER with concern for increased weakness and oxygen requirement. Workup shows complete whiteout of left hemithorax and obstruction in left mainstem bronchus along with pleural effusion. Discussed case with ER physician, request admission for further treatment of suspected pneumonia, pleural effusion and goals of care discussion about lung mass. I agreed and decided to admit for further care. Pulmonology evaluated. Chest tube was removed. Extensive goals of care discussion with family, given the high suspicion for lung cancer and postobstructive pneumonia with no desire by patient for further workup or treatment, will proceed with hospice care. Hospice to admit upon arrival to nursing facility. Continue empiric antibiotics for UTI and pneumonia. Stable on room air. Problems addressed as follows: Postobstructive pneumonia Enlarging lung mass highly suspicious for cancer with suspected metastases -CT of chest per my review with large left-sided effusion, complete whiteout of left lung, mass extruding from left mainstem bronchus into trachea. Mass seen on CT of chest a year ago and discussion at that time with no desire to proceed with further workup per patient. She has continued to smoke daily. Highly suspicious that what appears to be pneumonia is obstructive. Thoracentesis performed in the ER. Pleural fluid along with blood cultures obtained and remain negative at discharge. Still pending however. Fluid studies still pending including cytology. Antibiotics were transitioned to ceftriaxone after urine culture returned with resistant pathogen to angel quinolones. Received 1 dose of ceftriaxone on day of discharge, will treat with 6 additional days of cefdinir twice daily 300 mg p.o. to complete 7-day course. - Stable on room air [place]: Creatinine 2.1 on admission. Baseline 1.5 in October. Improved to 2.0. Stopped checking labs due to goals of care. Has had decreased p.o. intake. He is making urine however. UTI: Found to have UTI on admission. Urine culture positive for E. coli resistant to angel quinolones. Sensitive to cephalosporins. Transition to cefdinir to complete course. 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 MRI obtained that same time confirming acute and subacute left frontotemporal stroke. -Stopped antiplatelet therapy earlier this year due to GI bleed. -No new complaints today. Fully dependent on nursing care for most ADLs. Resides at [facility] detention long-term #Type 2 diabetes: Sliding scale insulin with fingersticks ACHS. A1c 7.0 this admission. Resume home regimen at discharge. Severe protein calorie malnutrition: Present on admission. Due to poor p.o. intake and suspected cancer. Continue supplementation and comfort feeds. Chronic conditions: #Hyperlipidemia #Hypertension #Depression/anxiety ? Continue Zoloft 100 mg daily and BuSpar 5 mg twice daily. Holding statin Total time spent on discharge 32 minutes in counseling, documentation, chart review, and direct care with patient. Exam Data for Last 24 hours Vital signs and Labs for Last 24 Hours: Temp Pulse Resp BP Pulse Ox O2 Del Method O2 Flow Rate 97.9 F 80 16 132/64 96 Room Air 3 04/24/25 08:00 04/24/25 08:00 04/24/25 08:00 04/24/25 08:00 04/24/25 08:00 04/24/25 08:00 04/23/25 23:54 Laboratory Results - last 24 hr 04/23/25 11:10: POC Glucose 80 04/23/25 15:56: POC Glucose 119 H 04/23/25 19:53: POC Glucose 95 04/24/25 06:03: POC Glucose 130 H I & O for Last 24 hours: Intake & Output 04/21/25 04/22/25 04/23/25 04/24/25 23:59 23:59 23:59 23:59 Intake Total 1000 / 1000 270 / 420 150 / 150 Output Total 1000 / 1000 Balance 1000 / 1000 -730 / -580 150 / 150 Weight 53.07 kg 48.761 kg 48.035 kg Microbiology Reports for the Last 24 Hours: Microbiology 04/22/25 19:44 Urine,Clean Catch Urine Culture - Final Escherichia coli 04/22/25 18:30 Thoracic Fluid Gram Stain - Final 04/22/25 18:30 Thoracic Fluid Body Fluid Culture - Preliminary NO GROWTH AFTER 24 HOURS Constitutional Constitutional: no acute distress, thin, chronically ill appearing and cooperative *Routine HEENT Exam Head: Present normocephalic Eye: Present EOMI and PERRL ENT: Present mucous membranes moist *Routine Neck Exam Neck: Present supple; Absent lymphadenopathy *Routine Respiratory Exam Respiratory: Present diminished air movement; Absent rhonchi, wheezes or crackles Comments: Absent breath sounds in left lung field, diminished in right. *Routine Cardiovascular Exam Cardiovascular: Present RRR *Routine Abdominal Exam Abdominal: Present soft and normoactive bowel sounds; Absent tenderness *Routine Rectal Exam Patient deferred: visual exam *Routine Exam Patient deferred: external exam *Routine Extremities Exam Extremities: Absent cyanosis, clubbing or edema *Routine Skin Exam Skin: Present intact and warm; Absent rash *Routine Neurological Exam Neurological: Present alert and hemineglect; Absent altered mental status or moving all extremities Comments: Some residual weakness in right side. Oriented to self and place Results Data Completed and Pending Labs on day of discharge: Labs from last 24 hours 04/24/25 04/23/25 04/23/25 06:03 19:53 15:56 POC Glucose 130 H 95 119 H 04/23/25 11:10 POC Glucose 80 Preliminary micro results at discharge 04/22/25 18:30 Body Fluid Culture - Preliminary Thoracic Fluid NO GROWTH AFTER 24 HOURS DS: Diagnosis Discharge Diagnosis (1) Pleural effusion: Status: Acute Code(s): J90 - Pleural effusion, not elsewhere classified (2) Mass of lingula of lung: Status: Acute Code(s): R91.8 - Other nonspecific abnormal finding of lung field (3) Multiple lung nodules on CT: Status: Acute Code(s): R91.8 - Other nonspecific abnormal finding of lung field (4) Pneumonia: Status: Acute Code(s): J18.9 - Pneumonia, unspecified organism (5) E. coli UTI: Status: Acute Code(s): N39.0 - Urinary tract infection, site not specified; B96.20 - Unspecified Escherichia coli [E. coli] as the cause of diseases classified elsewhere Problem details: Present on admission, fluoroquinolone resistant (6) Severe protein-calorie malnutrition: Status: Acute Code(s): E43 - Unspecified severe protein-calorie malnutrition Meds Home Medications and Allergies Home Medications ?Medication ?Instructions ?Recorded ?Confirmed ?Type potassium chloride 20 mEq 40 meq (2 x 20 mEq) PO DAILY 30 04/26/24 04/22/25 Rx tablet,extended days #60 tabs release(part/cryst) (Klor-Con M) lactulose 10 gram/15 mL oral 30 ml PO BIDP PRN Constipation 06/07/24 04/22/25 History solution magnesium 200 mg tablet 400 mg PO DAILY 06/07/24 04/22/25 History ferrous sulfate 325 mg (65 mg 325 mg PO DAILY 06/08/24 04/22/25 History iron) tablet multivitamin 1 tab PO DAILY 06/08/24 04/22/25 History acetaminophen 500 mg tablet 500 mg PO Q6HP PRN Mild Pain 07/31/24 04/23/25 History (Scale Score 1-4) levetiracetam 500 mg tablet 500 mg PO BID 07/31/24 04/22/25 History (Keppra) loperamide 2 mg capsule 2 mg PO Q6HP PRN Diarrhea 07/31/24 04/23/25 History cranberry 500 mg capsule 500 mg PO DAILY 09/19/24 04/22/25 History estradiol 0.01% (0.1 mg/gram) 1 g vaginal WEEKLY 09/19/24 04/22/25 History vaginal cream (Estrace) buspirone 5 mg tablet 5 mg PO BID 10/23/24 04/22/25 History insulin lispro 100 unit/mL 1 sliding scale dose SQ DIRECTED 10/23/24 04/22/25 History subcutaneous pen (Humalog KwikPen (U-100) Insulin) mirtazapine 7.5 mg tablet 7.5 mg PO HS 04/22/25 04/22/25 History pantoprazole 40 mg tablet,delayed 40 mg PO DAILY 04/22/25 04/22/25 History release sertraline 100 mg tablet 100 mg PO HS 04/22/25 04/22/25 History cefdinir 300 mg capsule 300 mg PO BID 6 days #12 caps 04/24/25 Rx insulin glargine 100 unit/mL (3 5 unit (0.05 mL) SQ HS 30 days #0 04/24/25 04/22/25 Rx mL) subcutaneous pen (Lantus mL Solostar U-100 Insulin) New Prescriptions to Start Prescriptions: Gen Gallegos Allergies Allergy/AdvReac Type Severity Reaction Status Date / Time latex (LATEX) Allergy Intermediate I-ITCHING Verified 04/22/25 22:17 Penicillins (PENICILLINS) Allergy Mild I-RASH Verified 04/22/25 22:17 Sulfa (Sulfonamide Allergy Unknown I-RASH Verified 04/22/25 22:17 Antibiotics) (SULFA (SULFONAMIDE ANTIBIOTICS)) Tetanus Vaccines and Toxoid Allergy Unknown Verified 04/22/25 22:17 (TETANUS VACCINES & TOXOID) Discharge Plan Disposition Patient Disposition: Hospice - Medical Facility Condition: Fair Discharge Order Discharge Orders: Discharge Order (Routine); Ordered 04/24/25 Ordered By: Gen Gomez Follow up Plan Prescriptions/Medication Reconciliation: New cefdinir 300 mg capsule 300 mg PO BID 6 Days Qty: 12 0RF Continued loperamide 2 mg capsule 2 mg PO Q6HP PRN (Reason: Diarrhea) levetiracetam [Keppra] 500 mg tablet 500 mg PO BID acetaminophen 500 mg tablet 500 mg PO Q6HP PRN (Reason: Mild Pain (Scale Score 1-4)) estradiol [Estrace] 0.01 % (0.1 mg/gram) cream 1 g vaginal WEEKLY cranberry 500 mg capsule 500 mg PO DAILY Rx Instructions: administer with meals buspirone 5 mg tablet 5 mg PO BID insulin lispro [Humalog KwikPen Insulin] 100 unit/mL insulin pen 1 sliding scale dose SQ DIRECTED magnesium 200 mg tablet 400 mg PO DAILY lactulose 10 gram/15 mL solution 30 ml PO BIDP PRN (Reason: Constipation) multivitamin Tablet 1 tab PO DAILY ferrous sulfate 325 mg (65 mg iron) Tablet 325 mg PO DAILY potassium chloride [Klor-Con M20] 20 mEq Tablet,Er Particles/Crystals 40 meq PO DAILY 30 Days Qty: 60 0RF mirtazapine 7.5 mg tablet 7.5 mg PO HS sertraline 100 mg tablet 100 mg PO HS pantoprazole 40 mg tablet,delayed release (DR/EC) 40 mg PO DAILY Changed insulin glargine [Lantus Solostar U-100 Insulin] 100 unit/mL (3 mL) insulin pen 5 unit SQ HS 30 Days Qty: 0 0RF Discontinued atorvastatin 40 mg tablet 40 mg PO HS 30 Days Qty: 30 0RF Problem Reconciliation Problems Reviewed?: Yes Patient Discharge Instructions ACTIVITY: Continue current activity DIET: continue same diet Patient Instructions: DI for Pneumonia in Adults, DI for Thoracentesis, DI for Surgical Site Infection, DI for Pulmonary Nodule, DI for Pleural Effusion, Catheter-Associated Urinary Tract Infection Print Language: Palauan Providers Primary Care Provider: Amarilis Bourgeois Admit Provider: Gen Gomez Attending Provider: Gen Gomez
[2025-04-24 11:00] LABS: POC Glucose,Bedside 117 gm/dL (70-110)
[2025-04-24 12:00] VITALS: BP 132/62; PULSE 74; RESP 16; TEMP 36.7; O2SAT 96
[2025-04-24 13:42] LABS: Albumin, Body Fluid 1.7 g/dL (Not Estab.); Glucose, Body Fluid 103 mg/dL (.); LD, Body Fluid 114 IU/L (.)
--- NOTE | 2025-04-27 08:20 | PC.NURSE ---
Culture results forwarded to hospitalist.
== END 2025-04-24 14:05 | disposition hospice, inpatient (51) | DRG 180 ==
LOC: ER 18:47 → 2ND 19:41
PROVIDERS: Physician Assistant; Admitting Provider Internal Medicine Adolescent Medicine; Emergency Provider Student in an Organized Health Care Education/Training Program; PCP Nurse Practitioner Family; Visit Provider Internal Medicine Adolescent Medicine
DX: C34.92 Malignant neoplasm of unspecified part of left bronchus or lung (principal); E43 Unspecified severe protein-calorie malnutrition; J18.8 Other pneumonia, unspecified organism; I69.351 Hemiplegia and hemiparesis following cerebral infarction affecting right dominant side; N17.9 Acute kidney failure, unspecified; N39.0 Urinary tract infection, site not specified; Z16.23 Resistance to quinolones and fluoroquinolones; J91.8 Pleural effusion in other conditions classified elsewhere; F01.54 Vascular dementia, unspecified severity, with anxiety; F01.53 Vascular dementia, unspecified severity, with mood disturbance; G40.909 Epilepsy, unspecified, not intractable, without status epilepticus; K21.9 Gastro-esophageal reflux disease without esophagitis; I25.10 Atherosclerotic heart disease of native coronary artery without angina pectoris; F17.200 Nicotine dependence, unspecified, uncomplicated; Z66 Do not resuscitate; I65.23 Occlusion and stenosis of bilateral carotid arteries; R53.81 Other malaise; N18.9 Chronic kidney disease, unspecified; B96.20 Unspecified Escherichia coli [E. coli] as the cause of diseases classified elsewhere; Z68.20 Body mass index [BMI] 20.0-20.9, adult; Z79.4 Long term (current) use of insulin; Z88.0 Allergy status to penicillin; Z88.2 Allergy status to sulfonamides; Z88.7 Allergy status to serum and vaccine; Z91.040 Latex allergy status; E11.22 Type 2 diabetes mellitus with diabetic chronic kidney disease; I12.9 Hypertensive chronic kidney disease with stage 1 through stage 4 chronic kidney disease, or unspecified chronic kidney disease; E11.51 Type 2 diabetes mellitus with diabetic peripheral angiopathy without gangrene; D63.1 Anemia in chronic kidney disease; Z51.5 Encounter for palliative care
CPT/HCPCS: 0223U; 32554; 36415; 51702; 70450; 71045; 71275; 80053; 81001; 82042; 82803; 82945; 82962; 83036; 83605; 83615; 83690; 83735; 83880; 83986; 84157; 84484; 85025; 85610; 87070; 87077; 87086; 87088; 87186; 87205; 89051; 93005; 94760; 97162; 97165; 99285; J0696; J1956; J7030; Q9967